=== PATIENT | female | born 1955 | race Caucasian/White ===

== ENCOUNTER 2020-08-05 09:34 | Outpatient (REF) | payer MEDICARE, SELFPAY ==
[2020-08-05 10:17] LABS: MANUAL DIFF FLAG NO
[2020-08-05 10:30] LABS: Basophils Percent Auto 0.4 % (0-2); Eosinophils Absolute Auto 0.2 X10*3/uL (0.0-0.4); Eosinophils Percent Auto 2.9 % (0-4); Hematocrit 41.4 % (37-47); Hemoglobin 13.3 g/dl (12.0-16.0); Imm Gran Abs Auto 0.03 X10*3/uL (0.00-0.03); Imm Gran Pct Auto 0.4 % (0.0-0.4); Lymphocytes Absolute Auto 2.6 X10*3/uL (1.2-4.9); Lymphocytes Percent Auto 32.8 % (20-40); Mean Corpuscular HGB Conc 32.1 g/dl (31.0-35.0); Mean Corpuscular Hemoglobin 28.9 pg (27.0-33.0); Mean Corpuscular Volume 89.8 fL (80-98); Mean Platelet Volume 9.9 fL (9.4-12.3); Monocytes Absolute Auto 0.5 X10*3/uL (0.1-1.2); Monocytes Percent Auto 6.8 % (2-11); Neutrophils Absolute Auto 4.5 X10*3/uL (2.0-8.3); Neutrophils Percent Auto 56.7 % (45-73); Platelet Count 221 X10*3/uL (160-400); Red Blood Count 4.61 X10*6/uL (4.20-5.50); Red Cell Distribution Width 13.9 % (11.0-16.0)
[2020-08-05 10:55] LABS: Alanine Aminotransferase 17 U/L (0-31); Albumin Level 4.2 g/dL (3.5-5.0); Alkaline Phosphatase 69 U/L (39-117); Anion Gap 11 (12-20); Aspartate Amino Transferase 14 U/L (5-31); Bilirubin Total 0.5 mg/dL (0.0-1.0); Blood Urea Nitrogen 15 mg/dL (9-16); Calcium 8.4 mg/dL (8.4-10.2); Carbon Dioxide 28 mmol/L (22-29); Chloride 106 mmol/L (96-108); Cholesterol 167 mg/dL; Estimated Glomerular Filt Rate > 60; Glucose Fasting 115 mg/dL (60-99); HDL Cholesterol 37 mg/dL; LDL Cholesterol Calculated 99 mg/dl; Potassium 4.4 mmol/l (3.3-5.1); Sodium 141 mmol/L (135-145); Total Protein 6.8 g/dL (6.5-8.0); Triglycerides 156 mg/dL
[2020-08-05 11:10] LABS: Creatinine Urine 53.31 mg/dL; Microalbum/Creatinine Ratio Ur 88.1 ug/mg cr
[2020-08-05 11:12] LABS: Estimated Average Glucose 137 mg/dL; Hemoglobin A1c % 6.4 %
== END 2020-08-05 09:35 | disposition home or self-care (01) ==
LOC: HO.10HDL 09:34
PROVIDERS: Visit Provider Internal Medicine
DX: E11.9 Type 2 diabetes mellitus without complications (principal); I10 Essential (primary) hypertension; G47.33 Obstructive sleep apnea (adult) (pediatric); E78.00 Pure hypercholesterolemia, unspecified
CPT/HCPCS: 36415; 80053; 80061; 82043; 83036; 85025

== ENCOUNTER 2020-12-13 08:41 | Outpatient (REF) | payer MEDICARE, BC, OTHER, SELFPAY ==
[2020-12-13 10:12] LABS: MANUAL DIFF FLAG NO
[2020-12-13 10:21] LABS: Basophils Percent Auto 0.3 % (0-2); Eosinophils Absolute Auto 0.3 X10*3/uL (0.0-0.4); Eosinophils Percent Auto 3.3 % (0-4); Hematocrit 45.2 % (37-47); Hemoglobin 14.3 g/dl (12.0-16.0); Imm Gran Abs Auto 0.08 X10*3/uL (0.00-0.03); Imm Gran Pct Auto 0.9 % (0.0-0.4); Lymphocytes Absolute Auto 2.3 X10*3/uL (1.2-4.9); Lymphocytes Percent Auto 26.5 % (20-40); Mean Corpuscular HGB Conc 31.6 g/dl (31.0-35.0); Mean Corpuscular Hemoglobin 28.3 pg (27.0-33.0); Mean Corpuscular Volume 89.3 fL (80-98); Mean Platelet Volume 10.3 fL (9.4-12.3); Monocytes Absolute Auto 0.7 X10*3/uL (0.1-1.2); Monocytes Percent Auto 7.9 % (2-11); Neutrophils Absolute Auto 5.2 X10*3/uL (2.0-8.3); Neutrophils Percent Auto 61.1 % (45-73); Platelet Count 237 X10*3/uL (160-400); Red Blood Count 5.06 X10*6/uL (4.20-5.50); White Blood Count 8.6 X10*3/uL (4.8-10.8)
[2020-12-13 10:34] LABS: Estimated Average Glucose 134 mg/dL; Hemoglobin A1c % 6.3 %
[2020-12-13 10:51] LABS: Alanine Aminotransferase 19 U/L (0-31); Albumin Level 4.3 g/dL (3.5-5.0); Alkaline Phosphatase 74 U/L (39-117); Anion Gap 12 (12-20); Aspartate Amino Transferase 16 U/L (5-31); Bilirubin Total 0.6 mg/dL (0.0-1.0); Blood Urea Nitrogen 18 mg/dL (9-16); Carbon Dioxide 28 mmol/L (22-29); Chloride 105 mmol/L (96-108); Estimated Glomerular Filt Rate > 60; Glucose Fasting 139 mg/dL (60-99); Potassium 4.1 mmol/L (3.3-5.1); Sodium 141 mmol/L (135-145); Total Protein 7.1 g/dL (6.5-8.0)
[2020-12-13 11:23] LABS: Creatinine Urine 82.76 mg/dL; Microalbum/Creatinine Ratio Ur 19.3 ug/mg cr
[2020-12-13 11:51] LABS: Phosphorus 3.6 mg/dL (2.7-4.5)
[2020-12-13 12:32] LABS: Renal w Reflex Lab Use Only Order verified
== END 2020-12-13 08:42 | disposition home or self-care (01) ==
LOC: HO.10HDL 08:41
PROVIDERS: Absent Provider Internal Medicine Nephrology; Visit Provider Internal Medicine
DX: E11.9 Type 2 diabetes mellitus without complications (principal); I10 Essential (primary) hypertension; E78.00 Pure hypercholesterolemia, unspecified; G47.33 Obstructive sleep apnea (adult) (pediatric)
CPT/HCPCS: 36415; 80051; 80053; 82043; 82310; 82565; 83036; 84100; 84520; 85025

== ENCOUNTER 2021-04-19 15:37 | Outpatient (REF) | payer MEDICARE, BC, OTHER, SELFPAY ==
[2021-04-19 16:39] LABS: Influenza A PCR NEGATIVE (Negative); Influenza B PCR NEGATIVE (Negative); Resp Syncy Virus RNA Qual PCR NEGATIVE (Negative); SARS COV2 PCR INHOUSE NEGATIVE (Negative)
== END 2021-04-19 15:38 | disposition home or self-care (01) ==
LOC: HO.LNP 15:37
PROVIDERS: Visit Provider Internal Medicine
DX: Z20.822 Contact with and (suspected) exposure to COVID-19 (principal); J02.9 Acute pharyngitis, unspecified; R51.9 Headache, unspecified
CPT/HCPCS: 0241U

== ENCOUNTER 2021-10-09 10:51 | Inpatient (IN) | payer MEDICARE, BC, OTHER, SELFPAY ==
--- NOTE | ~2021-10-09 | CT_ITS ---
EXAMINATION: CT ANGIOGRAM OF THE CHEST WITH AND WITHOUT CONTRAST (CT PULMONARY ANGIOGRAM FOR PE) CLINICAL INFORMATION: Reason for Exam + COVID worsening sob oxygen at 65% COMPARISON: Portable chest radiograph 10/09/2021. TECHNIQUE: Prior to contrast administration, noncontrast localization images were obtained. Subsequently, multidetector volumetric imaging was performed from the thoracic inlet to below the diaphragms following the administration of 65 mL Omnipaque 350 intravenous contrast. Sagittal, coronal, and MIP oblique sagittal reformatted images were obtained on the CT workstation, uploaded to PACS, and reviewed. This CT examination was performed using dose optimization techniques as appropriate, variously including the following: *Automated exposure control *Adjustment of mA and/or kV according to patient size (this includes techniques or standardized protocols for targeted exams where dose is matched to indication/reason for exam; i.e. extremities or head) *Use of iterative reconstruction technique Total exam dose-length product 587 mGy-cm FINDINGS: QUALITY OF STUDY/CONTRAST BOLUS: Satisfactory. PULMONARY ARTERIES: No central or segmental pulmonary emboli. There are some beam hardening streak artifact from high attenuation inflow of contrast in the SVC. THORACIC AORTA: No aneurysm or dissection. LUNG: There are scattered bilateral patchy geographic predominantly peripheral infiltrates upper and lower zones with some lesser involvement along the bronchovascular bundles. Findings are similar to recent chest radiograph earlier today. PLEURA: No pleural effusion or pneumothorax. MEDIASTINUM: Normal heart size. No pericardial effusion. No bulky hilar or mediastinal lymphadenopathy. No evidence of septal bowing or right heart strain. No pneumomediastinum. CHEST WALL/AXILLA: No axillary or internal mammary lymphadenopathy. OSSEOUS STRUCTURES: No acute or suspicious osseous abnormality. UPPER ABDOMEN: Unremarkable. No reflux of contrast into the hepatic veins to suggest elevated right heart pressures. CT/CT angio chest PE protocol IMPRESSION: 1. No pulmonary embolism or thoracic aortic dissection. 2. Diffuse scattered airspace opacities consistent with history COVID. No pneumothorax or effusion. VTE: negative
--- NOTE | ~2021-10-09 | XR_ITS ---
EXAMINATION: XR CHEST CLINICAL INFORMATION: SOB COMPARISON: None TECHNIQUE: Frontal view of the chest was obtained. FINDINGS: The lungs are well-expanded with patchy opacity seen scattered throughout both lungs likely infiltrates. There is no suspicion for pleural effusion or pneumothorax. The heart size is borderline enlarged. Pulmonary vascularity is normal. XR/XR chest 1V IMPRESSION: Diffuse bilateral patchy opacities throughout lungs suggestive of infiltrates.
[2021-10-09 11:05] VITALS: BP 163/84; PULSE 70; RESP 28; TEMP 36.6; O2SAT 65; BMI 48.8
--- NOTE | 2021-10-09 11:43 | ECG_ITS ---
Test Reason : sob Blood Pressure : / mmHG Vent. Rate : 071 BPM Atrial Rate : 071 BPM P-R Int : 232 ms QRS Dur : 100 ms QT Int : 452 ms P-R-T Axes : 013 090 -14 degrees QTc Int : 491 ms Sinus rhythm with sinus arrhythmia with 1st degree A-V block Rightward axis T wave abnormality, consider anterior ischemia Prolonged QT Abnormal ECG When compared with ECG of 24-OCT-2004 09:45, T wave inversion now evident in Inferior leads T wave inversion now evident in Anterior leads QT has lengthened Referred By: Cristal Potts Electronically Signed By:ANASTASIYA JENSEN
--- NOTE | 2021-10-09 11:45 | ED.SOB ---
HPI - SOB/Dyspnea General Chief Complaint: Upper Respiratory Symptoms Stated Complaint: jail COVID Time Seen by Provider: 10/09/21 11:06 Source: patient Mode of arrival: ambulatory Limitations: no limitations History of Present Illness HPI Narrative: 66-year-old female with a past medical history of diabetes, hypertension, hyperlipidemia and asthma who is unvaccinated to COVID-19 who tested positive for COVID-19 on 09/25/2021 presenting to the ED with complaints of generalized weakness, poor appetite, loss of taste and smell, shortness of breath and dyspnea on exertion since 09/25/2021 which is worsening. She reports her has similar symptoms. She denies any measured fevers, dizziness, headaches, neck pain/stiffness, trouble swallowing, sore throat, cough, hemoptysis, nausea/vomiting/diarrhea, abdominal pain, back pain, lower extremity edema or calf tenderness, focal weakness, rashes or any other symptoms complaints or concerns at this time. MD elicited complaint: shortness of breath and pain with inspiration Pertinent past history: asthma, diabetes and other (Diagnosed with COVID-19 on 09/25/2021 unvaccinated) Onset (ago): week(s) (2) Context: recent illness (See above) Timing: constant and progressively worsening Severity: severe Exacerbating factors: lying flat, exertion, movement, inspiration, talking and deep breaths Relieving factors: rest and upright position Known history of: asthma, diabetes and other (Diagnosed with COVID on 10/26/2020) Associated symptoms: pain with inspiration and orthopnea Treatment prior to arrival: none Related Data Home oxygen amount: none Home Medications Medication Instructions Recorded Confirmed atenolol 25 mg tablet 3 tab PO BEDTIME 10/09/21 10/09/21 brimonidine 0.15 % eye drops 1 drp OPHTHALMIC (EYE) BEDTIME 10/09/21 10/09/21 bupropion HCl 100 mg tablet,12 hr 1 tab PO DAILY 10/09/21 10/09/21 sustained-release cholecalciferol (vitamin D3) 25 25 mcg PO BEDTIME 10/09/21 10/09/21 mcg (1,000 unit) tablet clonazepam 0.5 mg tablet 1 tab PO DAILY PRN 10/09/21 10/09/21 clonidine HCl 0.1 mg tablet 1 tab PO BID 10/09/21 10/09/21 lisinopril 40 mg tablet 1 tab PO BEDTIME 10/09/21 10/09/21 multivitamin 1 tab PO BEDTIME 10/09/21 10/09/21 paroxetine HCl 40 mg tablet 1 tab PO BEDTIME 10/09/21 10/09/21 simvastatin 20 mg tablet 1 tab PO BEDTIME 10/09/21 10/09/21 spironolactone 25 mg tablet 1 tab PO DAILY 10/09/21 10/09/21 Allergies Allergy/AdvReac Type Severity Reaction Status Date / Time nifedipine [NIFEDIPINE] Allergy Unknown UNKNOWN- Unverified 06/16/20 15:01 DOES NOT REMEMBER Pt states no known allergy to Allergy Unknown Uncoded 01/24/18 00:00 Review of Systems Review of Systems: Constitutional : Positive fatigue/malaise, No Weight loss, No Fever, No Chills, No Night Sweats ENT/Mouth : Positive loss of taste and smell, No Hearing loss, No Ear Pain, No Nasal Congestion, No Sinus Pain, No Hoarseness, No sore throat, No Rhinorrhea, No Swallowing Difficulty Eyes: No Eye Pain, No Swelling, No Redness, No Foreign Body, No Discharge, No Vision Changes Cardiovascular : Positive shortness of breath/dyspnea on exertion/orthopnea, No Chest Pain, No Edema, No Palpitations Respiratory : Positive dyspnea, No Cough, No Sputum, No Wheezing, No Smoke Exposure Gastrointestinal : No Nausea, No Vomiting, No Diarrhea, No Constipation, No abdominal Pain, No Hematochezia, No Melena Genitourinary : no irregular bleeding, No Dysuria, No Urinary Frequency, No Hematuria, No Urinary Incontinence, No Urgency, No Flank Pain, No Urinary Flow Changes, No Hesitancy Musculoskeletal : No joint pain, positive Myalgias, No Joint Swelling Skin : No Skin Lesions, No rash Neuro : Positive general Weakness, no focal weakness, No Numbness, No Paresthesias, No Loss of Consciousness, No Dizziness, No Headache Psych : No Anxiety/Panic, No Depression, No SI/HI/AH/VH, No Social Issues, Heme/Lymph: No Bruising, No Bleeding,No Lymphadenopathy Endocrine : No Polyuria, No Polydipsia, No Temperature Intolerance Yes all other systems are reviewed and are negative [facility] Past Medical History Attestation statement: The following information was validated with the patient. Medical History (Updated 10/09/21 @ 15:47 by Marcial Norman MD) HTN (hypertension) Prediabetes Family History Family History Mother Bladder cancer Social History Social History Alcohol intake: never Patient Tobacco Use Status: Never used Tobacco Use of substances other than those prescribed or required for medical reasons: No Advance Directives: No Advance Directives Information Provided: No Physical Exam Vital Signs: Vital Signs: Last Vital Signs Temp 98 F 10/09/21 11:05 Pulse 57 10/09/21 15:54 Resp 20 10/09/21 15:54 BP 163/73 H 10/09/21 15:54 Pulse Ox 98 10/09/21 15:54 BMI result Body Mass Index 48.8 vital signs have been reviewed as normal and appeared to be correct. Blood pressure hypertensive 163/84. Heart rate normal. Respiration rate tachypneic at 28 Temperature normal. Oxygen saturation hypoxic at 65% on room air Appearance: Alert. Oriented X3. In acute respiratory distress Head: Normal external exam. Normocephalic. Atraumatic. Eyes: PERRLA. EOMI. Conjunctiva and sclera normal. Eyelids normal. ENT: EAC normal. TM's Normal. Pharynx normal. Uvula midline. Moist mucous membranes. No trismus noted. No drooling noted. No muffled voice noted. Tolerating secretions well. Neck: Normal inspection. Neck supple. FROM. No adenopathy. Thyroid Normal. No meningeal signs. No neck mass noted. CVS: Normal heart rate and rhythm. Heart sound normal. Pulses normal throughout. No murmurs/rales/gallops. Respiratory: Patient in acute respiratory distress with decreased breath sounds throughout with pain on inspiration otherwise no wheezes/rales/rhonchi noted. Chest is nontender. No accessory muscle usage noted. Abdomen: Soft and nontender. Bowel sounds normal in all 4 quadrants. No distention noted. No organomegaly noted. No visible injury noted. Back: Full range of motion noted. No rashes/lesion/induration/fluctuance or signs of infection noted. Skin: Skin warm and dry. Normal skin color. Normal skin turgor. No rashes/lesions/lacerations noted. Extremities: No lower extremity edema. No calf tenderness is noted. Extremities exhibit normal range of motion. Extremities nontender. Neuro: Oriented X 3. No motor deficit. No sensory deficit. Reflexes normal. Normal steady gait. No focal neuro deficits noted. Vascular: + radial pulses/+ 2 distal pedal pulses/+2 dorsalis pedis b/l. Normal cap refill. No cyanosis noted to upper extremity nails and lower extremity toes nails. Course Course Course Narrative: 11:45am - 66-year-old female with a past medical history of DM, HTN, HLD and asthma who is unvaccinated to COVID-19 who tested positive for COVID-19 on 09/25/2021 presenting to the ED with complaints of generalized weakness, poor appetite, loss of taste and smell, shortness of breath and dyspnea on exertion since 09/25/2021 which is worsening. Plan: Patient was immediately placed on humidified oxygen at 12 L and now is satting at 99%. Otherwise will obtain labs, chest x-ray, EKG, CT of chest for PE, blood cultures, lactic acid, ABG. Provide a L of IV fluids, 6 mg of IV Decadron and 2 g of magnesium then re-evaluate. Reevaluation(s) Reevaluation #1: - labs reviewed patient with an elevated white blood cell count at 11,000. PT INR 17.0/1.5. D-dimer 474. Random glucose 126. Ferritin 83. Total bilirubin/AST/ALT at 1.4/40 1/59. LDH 404. Troponin 24.6 will be repeated in 3 hours. CRP 13.45. BNP 164. Otherwise all other labs are within normal limits. Patient is COVID positive. - chest x-ray revealed diffuse bilateral patchy opacities throughout lung suggestive of infiltrates. - therefore patient will need a repeat troponin at 15:00. I also ordered a CTA to evaluate for possible PE although will admit to Dr. Norman for COVID pneumonia with hypoxia patient is currently on 12 L of nasal cannula humidified air and is tolerating well at 98%. Time: 13:00 Reevaluation #2: CT of chest for PE negative for PE. Patient admitted at this time. Time: 16:10 MDM - SOB/Dyspnea Medical Records Attestation: I reviewed the patient's medical records. Lab Data Attestation: I reviewed the patient's lab results. Result diagrams: 10/09/21 12:19 10/09/21 12:19 Labs: Lab Results 10/09/21 10/09/21 10/09/21 Range/Units 12:13 12:19 12:19 WBC 11.3 H (4.8-10.8) X10*3/uL RBC 4.72 (4.20-5.50) X10*6/uL Hgb 13.2 (12.0-16.0) g/dl Hct 41.3 (37.0-47.0) % MCV 87.5 (80.0-98.0) fL MCH 28.0 (27.0-33.0) pg MCHC 32.0 (31.0-35.0) g/dl RDW 13.7 (11.0-16.0) % Plt Count 343 (160-400) X10*3/uL MPV 9.6 (9.4-12.3) fL Immature Gran % (Auto) 5.0 H (0.0-0.4) % Neut % (Auto) 73.9 H (45-73) % Lymph % (Auto) 12.8 L (20-40) % [place] % (Auto) 7.6 (2-11) % Eos % (Auto) 0.4 (0-4) % Baso % (Auto) 0.3 (0-2) % Lymph # (Auto) 1.5 (1.2-4.9) X10*3/uL [place] # (Auto) 0.9 (0.1-1.2) X10*3/uL Eos # (Auto) 0.0 (0.0-0.4) X10*3/uL Baso # (Auto) 0.0 (0.0-0.2) X10*3/uL Abs Immat Gran (auto) 0.56 H (0.00-0.03) X10*3/uL Absolute Neuts (auto) 8.4 H (2.0-8.3) x10*3/uL Absolute Nucleated RBC 0.000 (0.0-0.012) X10*3/uL Nucleated RBC % (auto) 0.0 (0.0-0.2) /100WBC PT 17.0 H (9.9-13.0) SEC INR 1.5 H (0.9-1.1) D-Dimer High Sensitivty 474 NG/ML O2 Saturation 88.0 % ABG pH at Pt Temp 7.46 H (7.35-7.45) ABG pH (Temp Correct) 7.46 H (7.35-7.45) ABG pCO2 at Pt Temp 35 (32-45) mmHg ABG pCO2 (Temp Corrct 36 (32-45) mmHg ABG pO2 at Pt Temp 63 L (83-108) mmHg ABG pO2 (Temp Correct 63 L (83-108) ABG HCO3 25 (22-26) mmol/L ABG Base Excess (Actual) 2.3 mmol/L Sodium (135-145) mmol/L Potassium (3.3-5.1) mmol/L Chloride (96-108) mmol/L Carbon Dioxide (22-29) mmol/L Anion Gap (12-20) BUN (9-16) mg/dL Creatinine (0.5-1.4) mg/dL Estim Creat Clear Calc Estimated GFR Random Glucose (60-115) mg/dL Lactic Acid (0.5-2.0) mmol/L Calcium (8.4-10.2) mg/dL Magnesium (1.6-2.6) mg/dL Ferritin (10-250) ng/mL Total Bilirubin (0.0-1.0) mg/dL AST (5-31) U/L ALT (0-31) U/L Alkaline Phosphatase (39-117) U/L Lactate Dehydrogenase (122-220) U/L Troponin I High Sens (<3.5-17.0) ng/L C-Reactive Protein (< or = 0.50) mg/dL B-Natriuretic Peptide (<100) pg/mL Total Protein (6.5-8.0) g/dL Albumin (3.5-5.0) g/dL Lipase (8-78) U/L Procalcitonin ng/mL COVID-19 ([facility]) (Negative) COVID-19 Clin Com 10/09/21 10/09/21 10/09/21 Range/Units 12:19 12:19 12:19 WBC (4.8-10.8) X10*3/uL RBC (4.20-5.50) X10*6/uL Hgb (12.0-16.0) g/dl Hct (37.0-47.0) % MCV (80.0-98.0) fL MCH (27.0-33.0) pg MCHC (31.0-35.0) g/dl RDW (11.0-16.0) % Plt Count (160-400) X10*3/uL MPV (9.4-12.3) fL Immature Gran % (Auto) (0.0-0.4) % Neut % (Auto) (45-73) % Lymph % (Auto) (20-40) % [place] % (Auto) (2-11) % Eos % (Auto) (0-4) % Baso % (Auto) (0-2) % Lymph # (Auto) (1.2-4.9) X10*3/uL [place] # (Auto) (0.1-1.2) X10*3/uL Eos # (Auto) (0.0-0.4) X10*3/uL Baso # (Auto) (0.0-0.2) X10*3/uL Abs Immat Gran (auto) (0.00-0.03) X10*3/uL Absolute Neuts (auto) (2.0-8.3) x10*3/uL Absolute Nucleated RBC (0.0-0.012) X10*3/uL Nucleated RBC % (auto) (0.0-0.2) /100WBC PT (9.9-13.0) SEC INR (0.9-1.1) D-Dimer High Sensitivty NG/ML O2 Saturation % ABG pH at Pt Temp (7.35-7.45) ABG pH (Temp Correct) (7.35-7.45) ABG pCO2 at Pt Temp (32-45) mmHg ABG pCO2 (Temp Corrct (32-45) mmHg ABG pO2 at Pt Temp (83-108) mmHg ABG pO2 (Temp Correct (83-108) ABG HCO3 (22-26) mmol/L ABG Base Excess (Actual) mmol/L Sodium 140 (135-145) mmol/L Potassium 4.3 (3.3-5.1) mmol/L Chloride 104 (96-108) mmol/L Carbon Dioxide 28 (22-29) mmol/L Anion Gap 12 (12-20) BUN 11 (9-16) mg/dL Creatinine 0.72 (0.5-1.4) mg/dL Estim Creat Clear Calc 85.8 Estimated GFR > 60 Random Glucose 126 H (60-115) mg/dL Lactic Acid 1.0 (0.5-2.0) mmol/L Calcium 9.1 (8.4-10.2) mg/dL Magnesium 2.1 (1.6-2.6) mg/dL Ferritin 883 H (10-250) ng/mL Total Bilirubin 1.4 H (0.0-1.0) mg/dL AST 41 H D (5-31) U/L ALT 59 H (0-31) U/L Alkaline Phosphatase 80 (39-117) U/L Lactate Dehydrogenase 404 H (122-220) U/L Troponin I High Sens 24.6 H (<3.5-17.0) ng/L C-Reactive Protein 13.45 H (< or = 0.50) mg/dL B-Natriuretic Peptide 164 H (<100) pg/mL Total Protein 7.2 (6.5-8.0) g/dL Albumin 3.8 (3.5-5.0) g/dL Lipase 67 (8-78) U/L Procalcitonin ng/mL COVID-19 ([facility]) (Negative) COVID-19 Clin Com 10/09/21 10/09/21 10/09/21 Range/Units 12:19 12:19 14:15 WBC (4.8-10.8) X10*3/uL RBC (4.20-5.50) X10*6/uL Hgb (12.0-16.0) g/dl Hct (37.0-47.0) % MCV (80.0-98.0) fL MCH (27.0-33.0) pg MCHC (31.0-35.0) g/dl RDW (11.0-16.0) % Plt Count (160-400) X10*3/uL MPV (9.4-12.3) fL Immature Gran % (Auto) (0.0-0.4) % Neut % (Auto) (45-73) % Lymph % (Auto) (20-40) % [place] % (Auto) (2-11) % Eos % (Auto) (0-4) % Baso % (Auto) (0-2) % Lymph # (Auto) (1.2-4.9) X10*3/uL [place] # (Auto) (0.1-1.2) X10*3/uL Eos # (Auto) (0.0-0.4) X10*3/uL Baso # (Auto) (0.0-0.2) X10*3/uL Abs Immat Gran (auto) (0.00-0.03) X10*3/uL Absolute Neuts (auto) (2.0-8.3) x10*3/uL Absolute Nucleated RBC (0.0-0.012) X10*3/uL Nucleated RBC % (auto) (0.0-0.2) /100WBC PT (9.9-13.0) SEC INR (0.9-1.1) D-Dimer High Sensitivty NG/ML O2 Saturation % ABG pH at Pt Temp (7.35-7.45) ABG pH (Temp Correct) (7.35-7.45) ABG pCO2 at Pt Temp (32-45) mmHg ABG pCO2 (Temp Corrct (32-45) mmHg ABG pO2 at Pt Temp (83-108) mmHg ABG pO2 (Temp Correct (83-108) ABG HCO3 (22-26) mmol/L ABG Base Excess (Actual) mmol/L Sodium (135-145) mmol/L Potassium (3.3-5.1) mmol/L Chloride (96-108) mmol/L Carbon Dioxide (22-29) mmol/L Anion Gap (12-20) BUN (9-16) mg/dL Creatinine (0.5-1.4) mg/dL Estim Creat Clear Calc Estimated GFR Random Glucose (60-115) mg/dL Lactic Acid (0.5-2.0) mmol/L Calcium 8.9 (8.4-10.2) mg/dL Magnesium (1.6-2.6) mg/dL Ferritin (10-250) ng/mL Total Bilirubin (0.0-1.0) mg/dL AST (5-31) U/L ALT (0-31) U/L Alkaline Phosphatase (39-117) U/L Lactate Dehydrogenase (122-220) U/L Troponin I High Sens (<3.5-17.0) ng/L C-Reactive Protein (< or = 0.50) mg/dL B-Natriuretic Peptide (<100) pg/mL Total Protein (6.5-8.0) g/dL Albumin (3.5-5.0) g/dL Lipase (8-78) U/L Procalcitonin 0.17 ng/mL COVID-19 ([facility]ANIS) Positive A (Negative) COVID-19 Clin Com See Note Imaging Data Chest x-ray: Attestation: I personally reviewed and interpreted this imaging study as follows: Radiologist's impression: FINDINGS: The lungs are well-expanded with patchy opacity seen scattered throughout both lungs likely infiltrates. There is no suspicion for pleural effusion or pneumothorax. The heart size is borderline enlarged. Pulmonary vascularity is normal. XR/XR chest 1V IMPRESSION: Diffuse bilateral patchy opacities throughout lungs suggestive of infiltrates. CTA of chest for PE: Attestation: I personally reviewed and interpreted this imaging study as follows: Radiologist's impression: FINDINGS: QUALITY OF STUDY/CONTRAST BOLUS: Satisfactory. PULMONARY ARTERIES: No central or segmental pulmonary emboli. There are some beam hardening streak artifact from high attenuation inflow of contrast in the SVC. THORACIC AORTA: No aneurysm or dissection. LUNG: There are scattered bilateral patchy geographic predominantly peripheral infiltrates upper and lower zones with some lesser involvement along the bronchovascular bundles. Findings are similar to recent chest radiograph earlier today. PLEURA: No pleural effusion or pneumothorax. MEDIASTINUM: Normal heart size.? No pericardial effusion.? No bulky hilar or mediastinal lymphadenopathy.? No evidence of septal bowing or right heart strain. No pneumomediastinum. CHEST WALL/AXILLA: No axillary or internal mammary lymphadenopathy. OSSEOUS STRUCTURES: No acute or suspicious osseous abnormality.? UPPER ABDOMEN: Unremarkable.? No reflux of contrast into the hepatic veins to suggest elevated right heart pressures. CT/CT angio chest PE protocol IMPRESSION: ? 1. No pulmonary embolism or thoracic aortic dissection. 2. Diffuse scattered airspace opacities consistent with history COVID. No pneumothorax or effusion. ? VTE: negative ECG Data Attestation: I personally reviewed and interpreted this ECG as follows: ECG interpretation date: 10/09/21 ECG interpretation time: 01:48 Interpretation: SINUS RHYTHM WITH SINUS ARRHYTHMIA WITH 1ST DEGREE AV BLOCK WITH A VENTRICULAR RATE OF 71 WITH LEFT RIGHTWARD AXIS WITH T-WAVE ABNORMALITIES NO ACUTE ISCHEMIC CHANGES ARE NOTED. PROLONGED QT AT 452 MILLISECONDS OTHERWISE NO ACUTE ISCHEMIC CHANGES AND SOME CHANGES WHEN COMPARED TO A PRIOR EKG 10/24/2017 ALTHOUGH NOT ISCHEMIC CHANGES AT THIS TIME Critical Care Time Critical Care Time Critical Care Time: Yes Total Critical Care Time: 60 Attestation: I personally attest to this time spent taking care of the patient Discharge Plan Discharge Clinical Impression: COVID-19, Acute hypoxemic respiratory failure due to COVID-19 Patient Disposition: Admitted As Inpatient
[2021-10-09 12:04] VITALS: O2SAT 97
[2021-10-09 12:20] LABS: ABG Base Excess 2.3 mmol/L; ABG HCO3 25 mmol/L (22-26); ABG pCO2 35 mmHg (32-45); ABG pCO2 TC 36 mmHg (32-45); ABG pH 7.46 (7.35-7.45); ABG pH TC 7.46 (7.35-7.45); ABG pO2 63 mmHg (83-108); ABG pO2 TC 63 (83-108)
[2021-10-09 12:30] LABS: MANUAL DIFF FLAG NO
[2021-10-09 12:33] LABS: Basophils Percent Auto 0.3 % (0-2); Eosinophils Percent Auto 0.4 % (0-4); Hematocrit 41.3 % (37.0-47.0); Hemoglobin 13.2 g/dl (12.0-16.0); Imm Gran Abs Auto 0.56 X10*3/uL (0.00-0.03); Lymphocytes Absolute Auto 1.5 X10*3/uL (1.2-4.9); Lymphocytes Percent Auto 12.8 % (20-40); Mean Corpuscular Volume 87.5 fL (80.0-98.0); Mean Platelet Volume 9.6 fL (9.4-12.3); Monocytes Absolute Auto 0.9 X10*3/uL (0.1-1.2); Monocytes Percent Auto 7.6 % (2-11); Neutrophils Absolute Auto 8.4 x10*3/uL (2.0-8.3); Neutrophils Percent Auto 73.9 % (45-73); Platelet Count 343 X10*3/uL (160-400); Red Blood Count 4.72 X10*6/uL (4.20-5.50); Red Cell Distribution Width 13.7 % (11.0-16.0); White Blood Count 11.3 X10*3/uL (4.8-10.8)
[2021-10-09 12:39] LABS: COVID-19 Test Positive (Negative); IDNOW Serial# 08D9AD1C
[2021-10-09 12:49] LABS: Alanine Aminotransferase 59 U/L (0-31); Albumin Level 3.8 g/dL (3.5-5.0); Alkaline Phosphatase 80 U/L (39-117); Anion Gap 12 (12-20); Aspartate Amino Transferase 41 U/L (5-31); Bilirubin Total 1.4 mg/dL (0.0-1.0); Blood Urea Nitrogen 11 mg/dL (9-16); C Reactive Protein 13.45 mg/dL (< or = 0.50); Calcium 9.1 mg/dL (8.4-10.2); Carbon Dioxide 28 mmol/L (22-29); Chloride 104 mmol/L (96-108); Creatinine Clr Calc Pharmacy 85.8; Estimated Glomerular Filt Rate > 60; Glucose Random 126 mg/dL (60-115); Lactate Dehydrogenase 404 U/L (122-220); Lipase 67 U/L (8-78); Magnesium 2.1 mg/dL (1.6-2.6); Potassium 4.3 mmol/L (3.3-5.1); Sodium 140 mmol/L (135-145); Total Protein 7.2 g/dL (6.5-8.0)
[2021-10-09 12:53] LABS: B Type Natriuretic Peptide 164 pg/mL (<100); Troponin-I High Sensitivity 24.6 ng/L (<3.5-17.0)
[2021-10-09 12:57] LABS: INTERNATIONAL NORM RATIO 1.5 (0.9-1.1)
[2021-10-09 12:59] LABS: D Dimer High Sensitivity 474 NG/ML
[2021-10-09 13:07] LABS: Procalcitonin 0.17 ng/mL
[2021-10-09 13:09] LABS: Ferritin 883 ng/mL (10-250)
--- NOTE | 2021-10-09 13:10 | PHA.MEDREC ---
Pharmacy Consult ? Medication Reconciliation Pharmacy has completed the medication reconciliation. Spoke with patient in ED. Patient takes all of her medication at night except for clonidine, bupropion and spironolactone.
[2021-10-09 13:31] LABS: ABG Refer to POC result
[2021-10-09] MEDS: 0.9 % Sodium Chloride 1,000 ML 999 ML IVCONT (13:32)
[2021-10-09] MEDS: cefTRIAXone sodium 1 GM in 0.9 % Sodium Chloride 50 ML IV (13:43)
[2021-10-09] MEDS: dexAMETHasone sod phosphate 4 MG/ML VIAL 6 MG IVPUSH (14:24)
[2021-10-09] MEDS: Magnesium Sulfate/H2O 2 GM/50 ML PIGGYBACK IV (14:29)
[2021-10-09 14:30] VITALS: BP 147/83; PULSE 69; RESP 22; O2SAT 98
[2021-10-09 14:31] LABS: Calcium 8.9 mg/dL (8.4-10.2)
[2021-10-09] MEDS: iohexoL 350 MG/ML 100 ML INFUS..BTL 65 ML IV (15:27)
--- NOTE | 2021-10-09 15:44 | PM.IMHP ---
History of Present Illness Date of Service: 10/09/21 Chief Complaint: sob 58-year-old female who tested positive for COVID-19 on 09/25/2021, unvaccinated, presented with shortness of breath. Patient states that since diagnosis she has been feeling significant weakness, poor appetite, loss of taste and smell, shortness of breath worse on exertion. Symptoms have been worsening so she contacted her primary care physician who directed her to the ED. In the ED she was noted to be 65% on room air, chest x-ray with bilateral opacities consistent with COVID, patient still testing positive for COVID. Review of Systems Review of Systems: Constitutional: Denies fever, denies Chills Eyes: denies blurry vision ENT: denies sore throat CVS: denies chest pain Respiratory: dyspnea GI: no abdominal pain : denies dysuria MSK: denies neck pain Skin: denies rash Neuro: denies specific motor weakness Psych: denies suicidal ideation Endocrine: denies heat/cold intolerance Hematologic: denies easy bleeding Allergy: denies hives [facility] Medical History (Updated 10/09/21 @ 15:47 by Marcial Norman MD) HTN (hypertension) Prediabetes Family History Mother Bladder cancer Social History Alcohol intake: never Patient Tobacco Use Status: Never used Tobacco Use of substances other than those prescribed or required for medical reasons: No Advance Directives: No Advance Directives Information Provided: No Meds Allergies Allergy/AdvReac Type Severity Reaction Status Date / Time nifedipine [NIFEDIPINE] Allergy Unknown UNKNOWN- Unverified 06/16/20 15:01 DOES NOT REMEMBER Pt states no known allergy to Allergy Unknown Uncoded 01/24/18 00:00 Active Medications: Current Medications Atenolol (Atenolol 25 Mg Tablet) 75 mg PO BEDTIME RITU; Protocol Brimonidine Tartrate (Brimonidine Tartrate 0.2% Oph 5 Ml Bottle) 1 drop EYE-BOTH BEDTIME [facility] Clonazepam (Clonazepam 0.5 Mg Tablet) 0.5 mg PO DAILY PRN PRN Reason: Anxiety Clonidine HCl (Clonidine Hcl 0.1 Mg Tablet) 0.1 mg PO BID RITU; Protocol Dexamethasone Sodium Phosphate (Dexamethasone Sod Phosphate 4 Mg/Ml Vial) 6 mg IVPUSH DAILY R[facility]U Lisinopril (Lisinopril 40 Mg Tablet) 40 mg PO BEDTIME R[facility]U; Protocol Multivitamins/Vitamin C (Multivitamin Tablet) 1 tab PO BEDTIME R[facility]U Non-Formulary Medication (Bupropion Hcl) 1 tab PO DAILY RITU Non-Formulary Medication (Simvastatin) 1 tab PO BEDTIME RITU Paroxetine HCl (Paroxetine Hcl 40 Mg Tablet) 40 mg PO BEDTIME [facility] Pharmacy Consult (Consult Rx Perform Med Rec) 1 each MISCELLANE ONCE PRN PRN Reason: Consult order Spironolactone (Spironolactone 25 Mg Tablet) 25 mg PO DAILY RITU; Protocol Vitamin D (Cholecalciferol (Vitamin D3) 25 Mcg Tablet) 25 mcg PO BEDTIME [facility] Home Medications Medication Instructions Recorded Confirmed Last Taken Type atenolol 25 mg tablet 3 tab PO BEDTIME 10/09/21 10/09/21 Unknown History brimonidine 0.15 % eye drops 1 drp OPHTHALMIC (EYE) BEDTIME 10/09/21 10/09/21 10/08/21 History bupropion HCl 100 mg tablet,12 hr 1 tab PO DAILY 10/09/21 10/09/21 10/09/21 History sustained-release cholecalciferol (vitamin D3) 25 25 mcg PO BEDTIME 10/09/21 10/09/21 10/08/21 History mcg (1,000 unit) tablet clonazepam 0.5 mg tablet 1 tab PO DAILY PRN 10/09/21 10/09/21 Unknown History clonidine HCl 0.1 mg tablet 1 tab PO BID 10/09/21 10/09/21 10/09/21 History lisinopril 40 mg tablet 1 tab PO BEDTIME 10/09/21 10/09/21 10/08/21 History multivitamin 1 tab PO BEDTIME 10/09/21 10/09/21 10/08/21 History paroxetine HCl 40 mg tablet 1 tab PO BEDTIME 10/09/21 10/09/21 10/08/21 History simvastatin 20 mg tablet 1 tab PO BEDTIME 10/09/21 10/09/21 10/08/21 History spironolactone 25 mg tablet 1 tab PO DAILY 10/09/21 10/09/21 10/09/21 History Physical Exam Vital Signs and Narrative: Vital Signs: Last Vital Signs Temp 98 F 01/10/22 11:05 Pulse 69 10/09/21 14:30 Resp 22 H 10/09/21 14:30 BP 147/83 H 10/09/21 14:30 Pulse Ox 98 10/09/21 14:30 BMI result Body Mass Index 48.8 General: Visibly dyspneic HEENT: atraumatic Neck: normal to visual inspection CVS: S1, S2, RRR Resp: rhonchi bilateral, accessory muscles used Chest: non tender GI: soft, non tender, non distended : no CVA tenderness Skin: no rashes Extremities: no edema Neuro: Oriented X3, grossly intact Psych: cooperative Results Labs CBC and Chem 7: 10/09/21 12:19 10/09/21 12:19 Labs: Laboratory Results - last 24 hr 10/09/21 10/09/21 10/09/21 12:13 12:19 12:19 MCV 87.5 MCH 28.0 MCHC 32.0 RDW 13.7 Plt Count 343 MPV 9.6 Immature Gran % (Auto) 5.0 H Neut % (Auto) 73.9 H Lymph % (Auto) 12.8 L [place] % (Auto) 7.6 Eos % (Auto) 0.4 Baso % (Auto) 0.3 Lymph # (Auto) 1.5 [place] # (Auto) 0.9 Eos # (Auto) 0.0 Baso # (Auto) 0.0 Abs Immat Gran (auto) 0.56 H Absolute Neuts (auto) 8.4 H Absolute Nucleated RBC 0.000 Nucleated RBC % (auto) 0.0 PT 17.0 H INR 1.5 H D-Dimer High Sensitivty 474 O2 Saturation 88.0 ABG pH at Pt Temp 7.46 H ABG pH (Temp Correct) 7.46 H ABG pCO2 at Pt Temp 35 ABG pCO2 (Temp Corrct 36 ABG pO2 at Pt Temp 63 L ABG pO2 (Temp Correct 63 L ABG HCO3 25 ABG Base Excess (Actual) 2.3 Anion Gap Estim Creat Clear Calc Estimated GFR Random Glucose Lactic Acid Calcium Magnesium Ferritin Total Bilirubin AST ALT Alkaline Phosphatase Lactate Dehydrogenase Troponin I High Sens C-Reactive Protein B-Natriuretic Peptide Total Protein Albumin Lipase Procalcitonin COVID-19 (DANIS) COVID-19 Clin Com 10/09/21 10/09/21 10/09/21 12:19 12:19 12:19 MCV MCH MCHC RDW Plt Count MPV Immature Gran % (Auto) Neut % (Auto) Lymph % (Auto) [place] % (Auto) Eos % (Auto) Baso % (Auto) Lymph # (Auto) [place] # (Auto) Eos # (Auto) Baso # (Auto) Abs Immat Gran (auto) Absolute Neuts (auto) Absolute Nucleated RBC Nucleated RBC % (auto) PT INR D-Dimer High Sensitivty O2 Saturation ABG pH at Pt Temp ABG pH (Temp Correct) ABG pCO2 at Pt Temp ABG pCO2 (Temp Corrct ABG pO2 at Pt Temp ABG pO2 (Temp Correct ABG HCO3 ABG Base Excess (Actual) Anion Gap 12 Estim Creat Clear Calc 85.8 Estimated GFR > 60 Random Glucose 126 H Lactic Acid 1.0 Calcium 9.1 Magnesium 2.1 Ferritin 883 H Total Bilirubin 1.4 H AST 41 H D ALT 59 H Alkaline Phosphatase 80 Lactate Dehydrogenase 404 H Troponin I High Sens 24.6 H C-Reactive Protein 13.45 H B-Natriuretic Peptide 164 H Total Protein 7.2 Albumin 3.8 Lipase 67 Procalcitonin COVID-19 (DANIS) COVID-19 Clin Com 10/09/21 10/09/21 10/09/21 12:19 12:19 14:15 MCV MCH MCHC RDW Plt Count MPV Immature Gran % (Auto) Neut % (Auto) Lymph % (Auto) [place] % (Auto) Eos % (Auto) Baso % (Auto) Lymph # (Auto) [place] # (Auto) Eos # (Auto) Baso # (Auto) Abs Immat Gran (auto) Absolute Neuts (auto) Absolute Nucleated RBC Nucleated RBC % (auto) PT INR D-Dimer High Sensitivty O2 Saturation ABG pH at Pt Temp ABG pH (Temp Correct) ABG pCO2 at Pt Temp ABG pCO2 (Temp Corrct ABG pO2 at Pt Temp ABG pO2 (Temp Correct ABG HCO3 ABG Base Excess (Actual) Anion Gap Estim Creat Clear Calc Estimated GFR Random Glucose Lactic Acid Calcium 8.9 Magnesium Ferritin Total Bilirubin AST ALT Alkaline Phosphatase Lactate Dehydrogenase Troponin I High Sens C-Reactive Protein B-Natriuretic Peptide Total Protein Albumin Lipase Procalcitonin 0.17 COVID-19 (DANIS) Positive A COVID-19 Clin Com See Note Imaging Radiologist's Impressions: Impressions Chest X-Ray 10/09/21 11:45 IMPRESSION: Diffuse bilateral patchy opacities throughout lungs suggestive of infiltrates. Assessment and Plan (1) COVID-19: Status: Acute 66F with known COVID, presented with shortness of breath acute hypoxic respiratory failure secondary to COVID pneumonia not a candidate for remdesivir dexamethasone 6 mg daily wean O2 as tolerated for goal of 90% high risk due to prediabetes, obesity, hypertension, and unvaccinated hypertension lisinopril, clonidine, Aldactone, atenolol mood disorder continue Paxil, bupropion DVT prophylaxis with Lovenox Quality Stroke Does the patient have a stroke diagnosis?: No VTE Prior VTE?: No VTE Risk Level:: Medical - moderate - high VTE Device Contraindication: Treatment Not Indicated VTE Drug Contraindication: N/A - Med Ordered
[2021-10-09 15:54] VITALS: BP 163/73; PULSE 57; RESP 20; O2SAT 98
[2021-10-09 16:12] LABS: Troponin-I High Sensitivity 19.9 ng/L (<3.5-17.0)
[2021-10-09] MEDS: Lidocaine HCl 2 % MPF 5 ML VIAL SUBCUT (17:20)
[2021-10-09] MEDS: Enoxaparin Sodium 40 MG/0.4 ML SYRINGE SUBCUT (18:10)
--- NOTE | 2021-10-09 19:00 | PC.NURSE ---
assumed care of pt. pt resting in stretcher on monitor, pt refusing to put on gown and wants to remain in clothes. Pt on monitor, VS obtained. pt denies any complaints at this time.
[2021-10-09 21:00] VITALS: BP 159/87; PULSE 70; RESP 21; O2SAT 90
--- NOTE | 2021-10-09 21:00 | PC.NURSE ---
pt medicated as per emar. pt is trying to take meds from her purse and educated not to take meds on her own. pt denies any complaints at this time. pt awake, respirations easy, n/l. pt refusing to take off clothes. pt finally put on gown. VS obtained.
[2021-10-09] MEDS: cloNIDine HCL 0.1 MG TABLET PO (21:04)
[2021-10-09] MEDS: Cholecalciferol (Vitamin D3) 25 MCG TABLET PO (21:04)
[2021-10-09] MEDS: Multivitamin TABLET 1 TAB PO (21:05)
[2021-10-09] MEDS: lisinopriL 40 MG TABLET PO (21:05)
[2021-10-09] MEDS: Atorvastatin Calcium 10 MG TABLET PO (21:05)
[2021-10-09] MEDS: atenoloL 25 MG TABLET 75 MG PO (21:06)
[2021-10-10] VITALS (9 sets, daily range): BP systolic 124–160; BP diastolic 53–95; PULSE 54–88; RESP 18–21; TEMP 36.3–36.7; O2SAT 91–95
--- NOTE | 2021-10-10 | ECG_ITS ---
Test Reason : afib Blood Pressure : / mmHG Vent. Rate : 066 BPM Atrial Rate : 000 BPM P-R Int : 000 ms QRS Dur : 088 ms QT Int : 476 ms P-R-T Axes : 000 095 -32 degrees QTc Int : 499 ms Likely sinus with PACs; less likely atrial fibrilation Rightward axis ST & T wave abnormality, consider inferior ischemia ST & T wave abnormality, consider anterolateral ischemia Prolonged QT Abnormal ECG When compared with ECG of 09-OCT-2021 11:48, No significant changes seen Referred By: Marcial Norman Electronically Signed By:ANASTASIYA JENSEN
--- NOTE | 2021-10-10 02:52 | PC.NURSE ---
pt awake and requesting to use restroom. pt on commode at bedside w/o difficulty. IV pulled out by pt to LAC, Pt remains on monitor, pt denies complaints. Respirations easy, n/l. skin w/d. pt awaiting for room assignment. will continue to monitor pt.
--- NOTE | 2021-10-10 02:59 | PC.NURSE ---
pt returns to stretcher w/o difficulty.
[2021-10-10 07:42] LABS: Anion Gap 14 (12-20); Blood Urea Nitrogen 11 mg/dL (9-16); Calcium 9.4 mg/dL (8.4-10.2); Carbon Dioxide 25 mmol/L (22-29); Chloride 108 mmol/L (96-108); Creatinine Clr Calc Pharmacy 92.1; Estimated Glomerular Filt Rate > 60; Glucose Fasting 145 mg/dL (60-99); Potassium 4.4 mmol/L (3.3-5.1); Sodium 143 mmol/L (135-145)
[2021-10-10 07:45] LABS: Hematocrit 43.1 % (37.0-47.0); Hemoglobin 13.6 g/dl (12.0-16.0); Mean Corpuscular HGB Conc 31.6 g/dl (31.0-35.0); Mean Corpuscular Hemoglobin 27.9 pg (27.0-33.0); Mean Corpuscular Volume 88.3 fL (80.0-98.0); Mean Platelet Volume 10.1 fL (9.4-12.3); Platelet Count 408 X10*3/uL (160-400); Red Blood Count 4.88 X10*6/uL (4.20-5.50); Red Cell Distribution Width 13.6 % (11.0-16.0); White Blood Count 12.7 X10*3/uL (4.8-10.8)
[2021-10-10] MEDS: cloNIDine HCL 0.1 MG TABLET PO ×2 (08:37→21:06)
[2021-10-10] MEDS: dexAMETHasone sod phosphate 4 MG/ML VIAL 6 MG IVPUSH (08:37)
[2021-10-10] MEDS: 0.9 % Sodium Chloride Flush 3 ML SYRINGE IVFLUSH ×3 (08:38→21:07)
[2021-10-10] MEDS: Spironolactone 25 MG TABLET PO (08:38)
--- NOTE | 2021-10-10 08:43 | PC.NURSE ---
pt alert and oriented, skin pwd, respirations even and unlabored, ls slightly diminished at bases, pt is on a woods nasal cannual at 11l and sating 92%, denies pain pt used the commode with no assistance and urinated
[2021-10-10 09:14] LABS: Appearance Urine CLEAR; Color Urine YELLOW; Glucose Urine UA NEG (NEG); Leukocyte Esterase Urine NEG (NEG); Nitrite Urine NEG (NEG); Specific Gravity - Urine 1.025 (1.005-1.025); UACC Culture Trigger NO; Urine Blood 3+ (NEG); Urine Ketones NEG (NEG); Urine Protein 1+ MG/DL (NEG-TRACE)
[2021-10-10 09:47] LABS: Mucus Urine 1+ /LPF; Squamous Epithelial Cell Urine 1+ /LPF; WBC Urine 0-2 /HPF (0-4)
--- NOTE | 2021-10-10 09:59 | MHC.CM.PN ---
CM attempted to reach Patient by phone (COVID +)at contact # listed ([phone]), but reached Patient's /Ariel instead. CM addressed IMM with Ariel and the original will be mailed certified letter to him and a copy has been placed on the chart. Patient lives in a house with her and is functionally independent. Home/no services is the goal for dc and CM has initiated and will follow for dc planning. PCP is DR. Radu Welch.
--- NOTE | 2021-10-10 10:22 | PC.NURSE ---
report given to imc rn
--- NOTE | 2021-10-10 11:59 | PC.NURSE ---
Appears that patient is in Afib on monitor. Dr. Norman made aware. stat ECG ordered.
--- NOTE | 2021-10-10 12:04 | P.CDIC_ITS ---
CDI Concurrent Query Documentation Clarification: PHYSICIAN'S DOCUMENTATION REQUEST Date of Query: 10/10/21 1205 Patient Name: Josefina Magallon Admit Date: 10/09/21 Dear Doctor, A review of the medical record indicates additional documentation may be needed. Please review below and update the documentation accordingly. Risk Factors/Clinical Indicators/Treatments Body mass index: 48.8 If possible, please provide an associated diagnosis related to the abnormal BMI, such as: For a BMI >= 40: * Overweight * Obesity * Due to excess calories * Drug induced * Due to other cause * Severe or Morbid Obesity Or: * BMI is not significant * Other (please specify) * Unable to determine Use of terms such as suspected, likely, concern for, or probable (associated with a specific diagnosis that is being evaluated, monitored, or treated as if it exists) are acceptable and can be coded in the inpatient setting, when documented at the time of discharge. Thank you, Tonya Pascual [facility], CDIS Extension: [phone] Please use your independent medical judgment in providing your response. THIS QUERY IS PART OF THE PERMANENT MEDICAL RECORD Provider Response: Morbid Obesity
--- NOTE | 2021-10-10 12:04 | MHC.CDI.CONC ---
CDI Concurrent Query Documentation Clarification: PHYSICIAN'S DOCUMENTATION REQUEST Date of Query: 10/10/21 1205 Patient Name: Josefina Magallon Admit Date: 10/09/21 Dear Doctor, A review of the medical record indicates additional documentation may be needed. Please review below and update the documentation accordingly. Risk Factors/Clinical Indicators/Treatments Body mass index: 48.8 If possible, please provide an associated diagnosis related to the abnormal BMI, such as: For a BMI >= 40: Overweight Obesity Due to excess calories Drug induced Due to other cause Severe or Morbid Obesity Or: BMI is not significant Other (please specify) Unable to determine Use of terms such as suspected, likely, concern for, or probable (associated with a specific diagnosis that is being evaluated, monitored, or treated as if it exists) are acceptable and can be coded in the inpatient setting, when documented at the time of discharge. Thank you, Tonya Pascual [facility], CDIS Extension: [phone] Please use your independent medical judgment in providing your response. THIS QUERY IS PART OF THE PERMANENT MEDICAL RECORD Provider Response: Morbid Obesity
--- NOTE | 2021-10-10 12:48 | HO.PM.IMPN ---
Subjective Subjective Date of Service: 10/10/21 Interval History: cc: sob interval histoyr: a bit better today, family reported she seemed confused yesterday, but was more coherent on the phone today Cardiovascular Cardiovascular: Reports no additional cardiovascular complaints Respiratory Respiratory: Reports no additional respiratory complaints Physical Exam Vital Signs: Vital Signs: Last Vital Signs Temp 97.3 F 10/10/21 11:34 Pulse 67 10/10/21 11:34 Resp 20 10/10/21 11:34 BP 137/81 10/10/21 11:34 Pulse Ox 91 L 10/10/21 11:34 Oxygen Flow Rate 11 10/10/21 08:34 BMI result Body Mass Index 48.8 General: AO X 3, no acute distress Resp: Crackles bilateral, no accessory muscles used CVS: S1,S2,RRR GI: soft, non tender, non distended Neuro: motor grossly intact, alert Psych: appropriate affect, appropriate insight Objective Data Active Medications Acetaminophen (Acetaminophen 325 Mg Tablet) 650 mg PO Q6H PRN PRN Reason: Pain, Mild (Pain Scale 1-3) Atenolol (Atenolol 25 Mg Tablet) 75 mg PO BEDTIME ON LICENSE OF [facility]; Protocol Last Admin: 10/09/21 21:06 Dose: 75 mg Documented by: NANCY Atorvastatin Calcium (Atorvastatin Calcium 10 Mg Tablet) 10 mg PO BEDTIME ON LICENSE OF [facility] Last Admin: 10/09/21 21:05 Dose: 10 mg Documented by: NANCY Brimonidine Tartrate (Brimonidine Tartrate 0.2% Oph 5 Ml Bottle) 1 drop EYE-BOTH BEDTIME ON LICENSE OF [facility] Last Admin: 10/09/21 21:43 Dose: Not Given Documented by: NANCY Non-Admin Reason: See Note Clonazepam (Clonazepam 0.5 Mg Tablet) 0.5 mg PO DAILY PRN PRN Reason: Anxiety Clonidine HCl (Clonidine Hcl 0.1 Mg Tablet) 0.1 mg PO BID ON LICENSE OF [facility]; Protocol Last Admin: 10/10/21 08:37 Dose: 0.1 mg Documented by: NICHOLAS Dexamethasone Sodium Phosphate (Dexamethasone Sod Phosphate 4 Mg/Ml Vial) 6 mg IVPUSH DAILY ON LICENSE OF [facility] Last Admin: 10/10/21 08:37 Dose: 6 mg Documented by: NICHOLAS Enoxaparin Sodium (Enoxaparin Sodium 40 Mg/0.4 Ml Syringe) 40 mg SUBCUT Q24H RITU Last Admin: 10/09/21 18:10 Dose: 40 mg Documented by: KIKI Lisinopril (Lisinopril 40 Mg Tablet) 40 mg PO BEDTIME [facility]; Protocol Last Admin: 10/09/21 21:05 Dose: 40 mg Documented by: NANCY Multivitamins/Vitamin C (Multivitamin Tablet) 1 tab PO BEDTIME R[facility]U Last Admin: 10/09/21 21:05 Dose: 1 tab Documented by: NANCY Non-Formulary Medication (Bupropion Hcl) 1 tab PO DAILY RITU Paroxetine HCl (Paroxetine Hcl 40 Mg Tablet) 40 mg PO BEDTIME RITU Last Admin: 10/09/21 22:58 Dose: Not Given Documented by: NANCY Non-Admin Reason: Med Not Available Pharmacy Consult (Consult Rx Perform Med Rec) 1 each MISCELLANE ONCE PRN PRN Reason: Consult order Sodium Chloride (0.9 % Sodium Chloride Flush 3 Ml Syringe) 3 ml IVFLUSH QSHIFT ON LICENSE OF [facility] Last Admin: 10/10/21 08:38 Dose: 3 ml Documented by: NICHOLAS Spironolactone (Spironolactone 25 Mg Tablet) 25 mg PO DAILY R[facility]U; Protocol Last Admin: 10/10/21 08:38 Dose: 25 mg Documented by: NICHOLAS Vitamin D (Cholecalciferol (Vitamin D3) 25 Mcg Tablet) 25 mcg PO BEDTIME RITU Last Admin: 10/09/21 21:04 Dose: 25 mcg Documented by: NANCY Labs CBC & Chem 7: 10/10/21 07:13 10/10/21 07:13 Labs: Laboratory Results - last 24 hr 10/09/21 10/09/21 10/09/21 12:19 12:19 12:19 MCV MCH MCHC RDW Plt Count MPV Absolute Nucleated RBC Nucleated RBC % (auto) PT 17.0 H INR 1.5 H D-Dimer High Sensitivty 474 Anion Gap 12 Estim Creat Clear Calc 85.8 Estimated GFR > 60 Random Glucose 126 H Fasting Glucose Calcium 9.1 Magnesium 2.1 Ferritin 883 H Total Bilirubin 1.4 H AST 41 H D ALT 59 H Alkaline Phosphatase 80 Lactate Dehydrogenase 404 H Troponin I High Sens 24.6 H C-Reactive Protein 13.45 H B-Natriuretic Peptide 164 H Total Protein 7.2 Albumin 3.8 Lipase 67 Procalcitonin Urine Color Urine Appearance Urine pH Ur Specific [place] Urine Protein Urine Glucose (UA) Urine Ketones Urine Blood Urine Nitrite Ur Leukocyte Esterase Urine RBC Urine WBC Ur Squamous Epith Cells Urine Bacteria Urine Mucus 10/09/21 10/09/21 10/09/21 12:19 14:15 15:46 MCV MCH MCHC RDW Plt Count MPV Absolute Nucleated RBC Nucleated RBC % (auto) PT INR D-Dimer High Sensitivty Anion Gap Estim Creat Clear Calc Estimated GFR Random Glucose Fasting Glucose Calcium 8.9 Magnesium Ferritin Total Bilirubin AST ALT Alkaline Phosphatase Lactate Dehydrogenase Troponin I High Sens 19.9 H C-Reactive Protein B-Natriuretic Peptide Total Protein Albumin Lipase Procalcitonin 0.17 Urine Color Urine Appearance Urine pH Ur Specific [place] Urine Protein Urine Glucose (UA) Urine Ketones Urine Blood Urine Nitrite Ur Leukocyte Esterase Urine RBC Urine WBC Ur Squamous Epith Cells Urine Bacteria Urine Mucus 10/10/21 10/10/21 10/10/21 07:13 07:13 08:44 MCV 88.3 MCH 27.9 MCHC 31.6 RDW 13.6 Plt Count 408 H MPV 10.1 Absolute Nucleated RBC 0.000 Nucleated RBC % (auto) 0.0 PT INR D-Dimer High Sensitivty Anion Gap 14 Estim Creat Clear Calc 92.1 Estimated GFR > 60 Random Glucose Fasting Glucose 145 H Calcium 9.4 Magnesium Ferritin Total Bilirubin AST ALT Alkaline Phosphatase Lactate Dehydrogenase Troponin I High Sens C-Reactive Protein B-Natriuretic Peptide Total Protein Albumin Lipase Procalcitonin Urine Color YELLOW Urine Appearance CLEAR Urine pH 6.0 Ur Specific [place] 1.025 Urine Protein 1+ H Urine Glucose (UA) NEG Urine Ketones NEG Urine Blood 3+ H Urine Nitrite NEG Ur Leukocyte Esterase NEG Urine RBC 5-9 H Urine WBC 0-2 Ur Squamous Epith Cells 1+ Urine Bacteria NONE Urine Mucus 1+ Assessment and Plan (1) COVID-19: Status: Acute Assessment and Plan: 66F? with known COVID, presented with shortness of breath ?metabolic encephalopathy and acute hypoxic respiratory failure secondary to COVID pneumonia ?not a candidate for remdesivir ?dexamethasone 6 mg day 2 encephalopathy improved ?wean O2 as tolerated for goal of? 90%, now on 11L ?high risk due to prediabetes, morbid obesity, hypertension, and unvaccinated ? hypertension ?lisinopril, clonidine,? Aldactone, atenolol ?mood disorder ?continue Paxil, bupropion ?DVT prophylaxis with Lovenox Quality Stroke Does the patient have a stroke diagnosis?: No VTE Prior VTE?: No VTE Risk Level:: Medical - moderate - high VTE Device Contraindication: Treatment Not Indicated VTE Drug Contraindication: N/A - Med Ordered
--- NOTE | 2021-10-10 13:00 | PC.NURSE ---
Dr Norman aware of AFIB rhythm. Rate in 80s
[2021-10-10] MEDS: atenoloL 25 MG TABLET 75 MG PO (21:06)
[2021-10-10] MEDS: Cholecalciferol (Vitamin D3) 25 MCG TABLET PO (21:06)
[2021-10-10] MEDS: Atorvastatin Calcium 10 MG TABLET PO (21:06)
[2021-10-10] MEDS: lisinopriL 40 MG TABLET PO (21:06)
[2021-10-10] MEDS: Multivitamin TABLET 1 TAB PO (21:06)
[2021-10-10] MEDS: Apixaban 5 MG TABLET PO (21:06)
[2021-10-10] MEDS: PARoxetine HCL 40 MG TABLET PO (21:06)
[2021-10-11 03:06] VITALS: BP 132/74; PULSE 55; RESP 20; TEMP 36; O2SAT 96
--- NOTE | 2021-10-11 05:35 | PC.NURSE ---
Pt prescribed 75mg PO Atenolol = 3 tabs for bedtime. When giving this med to pt, she insisted that she only takes two 25mg tabs at home equaling 50mg for bedtime. This RN explained the dose ordered, but patient adamant about how many tabs she takes at home. Pt was only given two tabs of 25mg Atenolol and told to speak with MD in the daytime about her dosing. She stated that she will have her bring her correct order. She states that she has already discussed this with her primary Dr Fontaine and does not want to go against his orders. This RN did note that the patients heart rate was dropping into the low 30's overnight. She was also started on eliquis and did not understand what atrial fibrillation was and did not seem to recall the EKG that was taken earlier in the day. This RN educated the patient but she remains concerned and likely needing further education. Will continue to monitor and reassess.
[2021-10-11 06:33] LABS: Hematocrit 45.9 % (37.0-47.0); Hemoglobin 14.5 g/dl (12.0-16.0); Mean Corpuscular HGB Conc 31.6 g/dl (31.0-35.0); Mean Corpuscular Hemoglobin 27.8 pg (27.0-33.0); Mean Corpuscular Volume 87.9 fL (80.0-98.0); Mean Platelet Volume 10.2 fL (9.4-12.3); Platelet Count 452 X10*3/uL (160-400); Red Blood Count 5.22 X10*6/uL (4.20-5.50); Red Cell Distribution Width 13.6 % (11.0-16.0); White Blood Count 15.1 X10*3/uL (4.8-10.8)
[2021-10-11 06:42] LABS: Anion Gap 13 (12-20); Blood Urea Nitrogen 16 mg/dL (9-16); Calcium 9.2 mg/dL (8.4-10.2); Carbon Dioxide 27 mmol/L (22-29); Chloride 109 mmol/L (96-108); Creatinine Clr Calc Pharmacy 90.8; Estimated Glomerular Filt Rate > 60; Glucose Fasting 130 mg/dL (60-99); Potassium 4.8 mmol/L (3.3-5.1); Sodium 144 mmol/L (135-145)
[2021-10-11 06:54] LABS: Lactate Dehydrogenase 381 U/L (122-220)
[2021-10-11 07:35] VITALS: BP 184/96; PULSE 72; RESP 19; TEMP 35.7; O2SAT 92
[2021-10-11] MEDS: Apixaban 5 MG TABLET PO ×2 (08:37→21:07)
[2021-10-11] MEDS: cloNIDine HCL 0.1 MG TABLET PO ×2 (08:37→22:02)
[2021-10-11] MEDS: Spironolactone 25 MG TABLET PO (08:37)
[2021-10-11] MEDS: dexAMETHasone sod phosphate 4 MG/ML VIAL 6 MG IVPUSH (09:04)
[2021-10-11 11:07] VITALS: BP 149/86; PULSE 63; RESP 20; TEMP 35.8; O2SAT 93
--- NOTE | 2021-10-11 11:31 | MHC.CM.PN ---
Per ROUNDS discussion, Patient is not yet medically cleared for dc (IV Decadron, 11L O2);home is the goal for dc and CM will follow for possible need to adjust the dc plan.
--- NOTE | 2021-10-11 13:08 | HO.PM.IMPN ---
Subjective Subjective Date of Service: 10/11/21 Interval History: the patient was seen and evaluated this morning Laying in bed, feels mild improvement but still requiring 11 L of oxygen Denies any fever, chills or chest pain No reported other overnight events. Systemic review: No fever, chills or weakness No chest pain, palpitation Reporting mild shortness of breath and episodes of coughing No abdominal pain, nausea or vomiting No urinary symptoms No any rash or wounds Physical Exam Vital Signs: Vital Signs: Last Vital Signs Temp 96.4 F L 10/11/21 11:07 Pulse 63 10/11/21 11:07 Resp 20 10/11/21 11:07 BP 149/86 H 10/11/21 11:07 Pulse Ox 93 10/11/21 11:07 Oxygen Flow Rate 11 10/10/21 08:34 BMI result Body Mass Index 48.8 Const: Other: Constitutional : Alert, oriented, not in distress Neck : Normal inspection, Supple Cardiovascular : No elevated JVP, no lower extremity edema Respiratory : Chest wall moving bilaterally, not in distress, on 11 L nasal cannula Gastrointestinal: soft, lax, Normal bowel sounds, Non tender Skin : Warm, Dry Neurological : Alert & oriented x3, No focal deficit Objective Data Active Medications Acetaminophen (Acetaminophen 325 Mg Tablet) 650 mg PO Q6H PRN PRN Reason: Pain, Mild (Pain Scale 1-3) Apixaban (Apixaban 5 Mg Tablet) 5 mg PO BID [facility] Last Admin: 10/11/21 08:37 Dose: 5 mg Documented by: RYLAN Atenolol (Atenolol 25 Mg Tablet) 75 mg PO BEDTIME [facility]; Protocol Last Admin: 10/10/21 21:06 Dose: 75 mg Documented by: JAREN Atorvastatin Calcium (Atorvastatin Calcium 10 Mg Tablet) 10 mg PO BEDTIME [facility] Last Admin: 10/10/21 21:06 Dose: 10 mg Documented by: JAREN Brimonidine Tartrate (Brimonidine Tartrate 0.2% Oph 5 Ml Bottle) 1 drop EYE-BOTH BEDTIME [facility] Last Admin: 10/10/21 23:23 Dose: Not Given Documented by: JAREN Non-Admin Reason: pt refused, will take tomorrow Clonazepam (Clonazepam 0.5 Mg Tablet) 0.5 mg PO DAILY PRN PRN Reason: Anxiety Clonidine HCl (Clonidine Hcl 0.1 Mg Tablet) 0.1 mg PO BID [facility]; Protocol Last Admin: 10/11/21 08:37 Dose: 0.1 mg Documented by: RYLAN Dexamethasone Sodium Phosphate (Dexamethasone Sod Phosphate 4 Mg/Ml Vial) 6 mg IVPUSH DAILY [facility] Last Admin: 10/11/21 09:04 Dose: 6 mg Documented by: GILMAR Lisinopril (Lisinopril 40 Mg Tablet) 40 mg PO BEDTIME [facility]; Protocol Last Admin: 10/10/21 21:06 Dose: 40 mg Documented by: JAREN Multivitamins/Vitamin C (Multivitamin Tablet) 1 tab PO BEDTIME [facility] Last Admin: 10/10/21 21:06 Dose: 1 tab Documented by: JAREN Non-Formulary Medication (Bupropion Hcl) 1 tab PO DAILY [facility] Paroxetine HCl (Paroxetine Hcl 40 Mg Tablet) 40 mg PO BEDTIME [facility] Last Admin: 10/10/21 21:06 Dose: 40 mg Documented by: JAREN Pharmacy Consult (Consult Rx Perform Med Rec) 1 each MISCELLANE ONCE PRN PRN Reason: Consult order Sodium Chloride (0.9 % Sodium Chloride Flush 3 Ml Syringe) 3 ml IVFLUSH QSHIFT [facility] Last Admin: 10/11/21 08:40 Dose: Not Given Documented by: RYLAN Non-Admin Reason: No Access Spironolactone (Spironolactone 25 Mg Tablet) 25 mg PO DAILY [facility]; Protocol Last Admin: 10/11/21 08:37 Dose: 25 mg Documented by: RYLAN Vitamin D (Cholecalciferol (Vitamin D3) 25 Mcg Tablet) 25 mcg PO BEDTIME [facility] Last Admin: 10/10/21 21:06 Dose: 25 mcg Documented by: JAREN Labs CBC & Chem 7: 10/11/21 05:58 10/11/21 05:58 Labs: Laboratory Results - last 24 hr 10/11/21 10/11/21 05:58 05:58 MCV 87.9 MCH 27.8 MCHC 31.6 RDW 13.6 Plt Count 452 H MPV 10.2 Absolute Nucleated RBC 0.000 Nucleated RBC % (auto) 0.0 Anion Gap 13 Estim Creat Clear Calc 90.8 Estimated GFR > 60 Fasting Glucose 130 H Calcium 9.2 Lactate Dehydrogenase 381 H C-Reactive Protein 5.10 H Microbiology Microbiology Results: Microbiology 10/09/21 12:19 Blood Culture - Preliminary Blood - Venous No growth after 24 hours. 10/09/21 12:19 Blood Culture - Preliminary Blood - Venous No growth after 24 hours. Assessment and Plan (1) Acute hypoxemic respiratory failure due to COVID-19: Status: Acute (2) COVID-19: Status: Acute Assessment and Plan: 66F? with known COVID, presented with shortness of breath ?metabolic encephalopathy and acute hypoxic respiratory failure secondary to COVID pneumonia ?not a candidate for remdesivir ?dexamethasone 6 mg day 3 encephalopathy improved ?wean O2 as tolerated for goal of? 90%, now on 11L ?high risk due to prediabetes, morbid obesity, hypertension, and unvaccinated ? hypertension ?lisinopril, clonidine,? Aldactone, atenolol ?mood disorder ?continue Paxil, bupropion ?DVT prophylaxis with Lovenox Quality Stroke Does the patient have a stroke diagnosis?: No VTE Prior VTE?: No VTE Risk Level:: Medical - moderate - high VTE Device Contraindication: Treatment Not Indicated VTE Drug Contraindication: N/A - Med Ordered
[2021-10-11] MEDS: 0.9 % Sodium Chloride Flush 3 ML SYRINGE IVFLUSH ×2 (15:00→21:08)
[2021-10-11 15:53] VITALS: BP 165/120; PULSE 75; RESP 18; TEMP 36.4; O2SAT 92
[2021-10-11 20:00] VITALS: BP 192/109; PULSE 78; RESP 18; TEMP 36.4; O2SAT 96
[2021-10-11] MEDS: PARoxetine HCL 40 MG TABLET PO (21:06)
[2021-10-11] MEDS: Multivitamin TABLET 1 TAB PO (21:06)
[2021-10-11] MEDS: Cholecalciferol (Vitamin D3) 25 MCG TABLET PO (21:07)
[2021-10-11] MEDS: lisinopriL 40 MG TABLET PO (21:07)
[2021-10-11] MEDS: atenoloL 25 MG TABLET 75 MG PO (21:07)
[2021-10-11] MEDS: Atorvastatin Calcium 10 MG TABLET PO (21:07)
[2021-10-11] MEDS: Brimonidine Tartrate 0.2% Oph 5 ML BOTTLE 1 DROP EYE-BOTH (21:18)
[2021-10-11 23:29] VITALS: BP 167/90; PULSE 69; RESP 19; TEMP 36; O2SAT 97
[2021-10-12] VITALS (8 sets, daily range): BP systolic 122–167; BP diastolic 64–94; PULSE 63–86; RESP 18–20; TEMP 36–37; O2SAT 94–98
[2021-10-12 07:15] LABS: Hematocrit 45.5 % (37.0-47.0); Hemoglobin 14.5 g/dl (12.0-16.0); Mean Corpuscular HGB Conc 31.9 g/dl (31.0-35.0); Mean Corpuscular Hemoglobin 28.3 pg (27.0-33.0); Mean Corpuscular Volume 88.7 fL (80.0-98.0); Platelet Count 490 X10*3/uL (160-400); Red Blood Count 5.13 X10*6/uL (4.20-5.50); Red Cell Distribution Width 13.7 % (11.0-16.0)
[2021-10-12 07:32] LABS: Anion Gap 11 (12-20); Blood Urea Nitrogen 20 mg/dL (9-16); Calcium 9.3 mg/dL (8.4-10.2); Carbon Dioxide 29 mmol/L (22-29); Chloride 109 mmol/L (96-108); Creatinine Clr Calc Pharmacy 85.8; Estimated Glomerular Filt Rate > 60; Glucose Random 126 mg/dL (60-115); Potassium 4.5 mmol/L (3.3-5.1); Sodium 144 mmol/L (135-145)
[2021-10-12] MEDS: Apixaban 5 MG TABLET PO ×2 (08:46→20:53)
[2021-10-12] MEDS: 0.9 % Sodium Chloride Flush 3 ML SYRINGE IVFLUSH ×2 (08:46→20:54)
[2021-10-12] MEDS: cloNIDine HCL 0.1 MG TABLET PO ×2 (08:46→20:54)
[2021-10-12] MEDS: dexAMETHasone sod phosphate 4 MG/ML VIAL 6 MG IVPUSH (08:46)
[2021-10-12] MEDS: Spironolactone 25 MG TABLET PO (08:46)
--- NOTE | 2021-10-12 12:20 | HO.PM.IMPN ---
Subjective Subjective Date of Service: 10/12/21 Interval History: the patient was seen and evaluated this morning Laying in bed, feels mild improvement Decreased O2 supplement to 9 No reported other overnight events. Systemic review: No fever, chills or weakness No chest pain, palpitation Reporting mild shortness of breath and episodes of coughing No abdominal pain, nausea or vomiting No urinary symptoms No any rash or wounds Physical Exam Vital Signs: Vital Signs: Last Vital Signs Temp 97.0 F 10/12/21 11:04 Pulse 63 10/12/21 11:04 Resp 20 10/12/21 11:04 BP 151/84 H 10/12/21 11:04 Pulse Ox 98 10/12/21 11:04 Oxygen Flow Rate 11 10/10/21 08:34 BMI result Body Mass Index 48.8 Const: Other: Constitutional : Alert, oriented, not in distress Neck : Normal inspection, Supple Cardiovascular : No elevated JVP, no lower extremity edema Respiratory : Chest wall moving bilaterally, not in distress, on 9 L nasal cannula Gastrointestinal: soft, lax, Normal bowel sounds, Non tender Skin : Warm, Dry Neurological : Alert & oriented x3, No focal deficit Objective Data Active Medications Acetaminophen (Acetaminophen 325 Mg Tablet) 650 mg PO Q6H PRN PRN Reason: Pain, Mild (Pain Scale 1-3) Apixaban (Apixaban 5 Mg Tablet) 5 mg PO BID [facility] Last Admin: 10/12/21 08:46 Dose: 5 mg Documented by: AMARA Atenolol (Atenolol 25 Mg Tablet) 75 mg PO BEDTIME [facility]; Protocol Last Admin: 10/11/21 21:07 Dose: 50 mg Documented by: DARIEN Comments: pt only wants 50mg Atorvastatin Calcium (Atorvastatin Calcium 10 Mg Tablet) 10 mg PO BEDTIME [facility] Last Admin: 10/11/21 21:07 Dose: 10 mg Documented by: DARIEN Brimonidine Tartrate (Brimonidine Tartrate 0.2% Oph 5 Ml Bottle) 1 drop EYE-BOTH BEDTIME [facility] Last Admin: 10/11/21 21:18 Dose: 1 drop Documented by: DARIEN Clonazepam (Clonazepam 0.5 Mg Tablet) 0.5 mg PO DAILY PRN PRN Reason: Anxiety Clonidine HCl (Clonidine Hcl 0.1 Mg Tablet) 0.1 mg PO BID [facility]; Protocol Last Admin: 10/12/21 08:46 Dose: 0.1 mg Documented by: AMARA Dexamethasone Sodium Phosphate (Dexamethasone Sod Phosphate 4 Mg/Ml Vial) 6 mg IVPUSH DAILY [facility] Last Admin: 10/12/21 08:46 Dose: 6 mg Documented by: AMARA Lisinopril (Lisinopril 40 Mg Tablet) 40 mg PO BEDTIME [facility]; Protocol Last Admin: 10/11/21 21:07 Dose: 40 mg Documented by: DARIEN Multivitamins/Vitamin C (Multivitamin Tablet) 1 tab PO BEDTIME [facility] Last Admin: 10/11/21 21:06 Dose: 1 tab Documented by: DARIEN Non-Formulary Medication (Bupropion Hcl) 1 tab PO DAILY [facility] Paroxetine HCl (Paroxetine Hcl 40 Mg Tablet) 40 mg PO BEDTIME [facility] Last Admin: 10/11/21 21:06 Dose: 40 mg Documented by: DARIEN Pharmacy Consult (Consult Rx Perform Med Rec) 1 each MISCELLANE ONCE PRN PRN Reason: Consult order Sodium Chloride (0.9 % Sodium Chloride Flush 3 Ml Syringe) 3 ml IVFLUSH QSHIFT [facility] Last Admin: 10/12/21 08:46 Dose: 3 ml Documented by: AMARA Spironolactone (Spironolactone 25 Mg Tablet) 25 mg PO DAILY [facility]; Protocol Last Admin: 10/12/21 08:46 Dose: 25 mg Documented by: AMARA Vitamin D (Cholecalciferol (Vitamin D3) 25 Mcg Tablet) 25 mcg PO BEDTIME [facility] Last Admin: 10/11/21 21:07 Dose: 25 mcg Documented by: DARIEN Labs CBC & Chem 7: 10/12/21 06:55 10/12/21 06:55 Labs: Laboratory Results - last 24 hr 10/12/21 10/12/21 06:55 06:55 MCV 88.7 MCH 28.3 MCHC 31.9 RDW 13.7 Plt Count 490 H MPV 10.0 Absolute Nucleated RBC 0.000 Nucleated RBC % (auto) 0.0 Anion Gap 11 L Estim Creat Clear Calc 85.8 Estimated GFR > 60 Random Glucose 126 H Calcium 9.3 Microbiology Microbiology Results: Microbiology 10/09/21 12:19 Blood Culture - Preliminary Blood - Venous No growth after 48 hours. 10/09/21 12:19 Blood Culture - Preliminary Blood - Venous No growth after 48 hours. Assessment and Plan (1) COVID-19: Status: Acute (2) Acute hypoxemic respiratory failure due to COVID-19: Status: Acute Assessment and Plan: 66F? with known COVID, presented with shortness of breath ?metabolic encephalopathy and acute hypoxic respiratory failure secondary to COVID pneumonia ?not a candidate for remdesivir ?dexamethasone 6 mg day 4 encephalopathy improved ?wean O2 as tolerated for goal of? 90%, now on 9L ?high risk due to prediabetes, morbid obesity, hypertension, and unvaccinated ? hypertension ?lisinopril, clonidine,? Aldactone, atenolol ?mood disorder ?continue Paxil, bupropion ?DVT prophylaxis with Lovenox Quality Stroke Does the patient have a stroke diagnosis?: No VTE Prior VTE?: No VTE Risk Level:: Medical - moderate - high VTE Device Contraindication: Treatment Not Indicated VTE Drug Contraindication: N/A - Med Ordered
[2021-10-12] MEDS: PARoxetine HCL 40 MG TABLET PO (20:53)
[2021-10-12] MEDS: lisinopriL 40 MG TABLET PO (20:53)
[2021-10-12] MEDS: Cholecalciferol (Vitamin D3) 25 MCG TABLET PO (20:53)
[2021-10-12] MEDS: Multivitamin TABLET 1 TAB PO (20:53)
[2021-10-12] MEDS: Atorvastatin Calcium 10 MG TABLET PO (20:53)
[2021-10-12] MEDS: atenoloL 25 MG TABLET 75 MG PO (20:53)
[2021-10-12] MEDS: Brimonidine Tartrate 0.2% Oph 5 ML BOTTLE 1 DROP EYE-BOTH (21:01)
[2021-10-13] VITALS (7 sets, daily range): BP systolic 152–190; BP diastolic 75–97; PULSE 66–88; RESP 18–20; TEMP 36.1–36.7; O2SAT 86–98
[2021-10-13] MEDS: Spironolactone 25 MG TABLET PO (08:16)
[2021-10-13] MEDS: cloNIDine HCL 0.1 MG TABLET PO ×2 (08:16→23:12)
[2021-10-13] MEDS: Apixaban 5 MG TABLET PO ×2 (08:16→23:13)
[2021-10-13] MEDS: dexAMETHasone sod phosphate 4 MG/ML VIAL 6 MG IVPUSH (08:16)
[2021-10-13] MEDS: 0.9 % Sodium Chloride Flush 3 ML SYRINGE IVFLUSH ×3 (08:17→23:13)
[2021-10-13] MEDS: hydrALAZINE HCl 25 MG TABLET PO (10:22)
[2021-10-13] MEDS: clonazePAM 0.5 MG TABLET PO (10:23)
--- NOTE | 2021-10-13 13:23 | PM.DS ---
DS: Providers Provider Date of Service: 10/14/21 Date of admission: 10/09/21 15:42 Primary care physician: Radu Welch MD DS: Diagnosis Discharge Diagnosis (1) COVID-19: Status: Acute (2) Acute hypoxemic respiratory failure due to COVID-19: Status: Acute (3) New onset atrial fibrillation: Status: Acute DS: Summary Hospital Course Hospital Course: Admission note HPI ?58-year-old female who tested positive for COVID-19 on 09/25/2021, unvaccinated, presented with shortness of breath.? Patient states that since diagnosis she has been feeling significant weakness, poor appetite, loss of taste and smell, shortness of breath worse on exertion.? Symptoms have been worsening so she contacted her primary care physician who directed her to the ED.? In the ED she was noted to be 65% on room air, chest x-ray with bilateral opacities consistent with COVID, patient still testing positive for COVID. Hospital Course The patient was admitted for hypoxia as a result of COVID-19 infection. Not a candidate for remdesivir at time of presentation. Treated with IV steroids and oxygen supplement with fair response over the course of hospital stay as she was weaned down and had home O2 evaluation with requirement of 2 L with ambulation. Noted to new onset atrial fibrillation with controlled rate. Evaluated by Cardiology who recommended Eliquis and to follow-up as outpatient for an echo. Suggested changing edema on all to carvedilol for better control of blood pressure. Hydralazine was added as well. To be discharged to finish total of 10 days of dexamethasone. Home oxygen showed be delivered by the end of the day and will need 2 L at time of discharge Blood pressure was noted to be elevated, will change Atenolol to Carvedilol Hydralazine added for blood pressure control as well. Time Spent with Patient Time attestation: Total time spent providing and/or coordinating discharge services: Discharge coordination time: Greater than 30 minutes Quality: Stroke Does the patient have a stroke diagnosis?: No Physical Exam Vital Signs: Vital Signs: Last Vital Signs Temp 97.8 F 10/13/21 11:42 Pulse 66 10/13/21 11:42 Resp 18 10/13/21 11:42 BP 170/82 H 10/13/21 11:42 Pulse Ox 95 10/13/21 11:42 Oxygen Flow Rate 11 10/10/21 08:34 BMI result Body Mass Index 48.8 Const: Other: Constitutional : Alert, oriented, not in distress Neck : Normal inspection, Supple Cardiovascular : No elevated JVP, no lower extremity edema Respiratory : Chest wall moving bilaterally, not in distress, on oxygen supplement nasal cannula Gastrointestinal: soft, lax, Normal bowel sounds, Non tender Skin : Warm, Dry Neurological : Alert & oriented x3, No focal deficit DS: Data Data Completed and Pending Labs on day of discharge: Preliminary micro results at discharge 10/09/21 12:19 Blood Culture - Preliminary Blood - Venous No growth after 48 hours. 10/09/21 12:19 Blood Culture - Preliminary Blood - Venous No growth after 48 hours. Discharge Plan Discharge Patient Disposition: Home, Self-Care Discharge Diagnosis: COVID-19 infection Referrals: Radu Welch MD [Primary Care Provider] - 1 Week Discharge Medications: New dexamethasone 6 mg tablet 6 mg PO DAILY Qty: 5 RF: 0 Eliquis 5 mg Tablet 5 mg PO BID Qty: 60 RF: 0 carvedilol 12.5 mg Tablet 12.5 mg PO BID Qty: 60 RF: 0 hydralazine 25 mg Tablet 25 mg PO TID Qty: 90 RF: 0 Continued clonidine HCl 0.1 mg tablet 1 tab PO BID RF: 0 clonazepam 0.5 mg tablet 1 tab PO DAILY PRN (Reason: Anxiety) RF: 0 spironolactone 25 mg tablet 1 tab PO DAILY RF: 0 bupropion HCl 100 mg tablet sustained-release 12 hr 1 tab PO DAILY RF: 0 simvastatin 20 mg tablet 1 tab PO BEDTIME RF: 0 paroxetine HCl 40 mg tablet 1 tab PO BEDTIME RF: 0 lisinopril 40 mg tablet 1 tab PO BEDTIME RF: 0 brimonidine 0.15 % drops 1 drp ophthalmic (eye) BEDTIME RF: 0 multivitamin Tablet 1 tab PO BEDTIME RF: 0 cholecalciferol (vitamin D3) 25 mcg (1,000 unit) Tablet 25 mcg PO BEDTIME RF: 0 Discontinued atenolol 25 mg tablet 3 tab PO BEDTIME RF: 0 Discharge Orders: Discharge Order (Routine); Ordered 10/14/21 Ordered By: Mildred Desouza Diet: advance to usual diet Activity on Discharge: As tolerated Stand Alone Forms: Patient Portal Discharge page Other Ambulatory Orders: [place] echo transthoracic complete (Routine) Timeframe: 2 Weeks Facility: [facility] - Location: Cardiology Ordered By: Mildred Desouza Care Plan Goals: Read below Health Concerns: Read below Plan of Treatment: Read below Assessment: You were admitted to the hospital for evaluation of increased shortness of breath and weakness from COVID-19 infection. Treated with IV steroids and oxygen supplement with good response over the course of hospital stay. You were evaluated for home O2. Continue dexamethasone for 5 more days. You were noted to have a new onset heart rhythm of atrial fibrillation. Started on Eliquis 5 mg twice daily , to follow up with dr Morel as outpatient and do an ECHO (ordered). Blood pressure was noted to be elevated, will change Atenolol to Carvedilol Hydralazine added for blood pressure control as well. check your readings at home and report to your PCP.
--- NOTE | 2021-10-13 14:27 | MHC.CM.PN ---
IMM 10/13/21 Female 66 DX Covid+ Patient is discharged today. She qualifies for Home O2. RT provided Home oxygen eval.She needs 2L via [place]. Jose is the provider. RT has arranged. No home services ordered or needed. Patients is providing transportation home.
--- NOTE | 2021-10-13 16:20 | PC.NURSE ---
Pt alert and oriented x3. Pt is on 2L O2 via [place]. Home O2 eval done and pt will be discharging home on 2L O2. Education provided and packet given to pt.
--- NOTE | 2021-10-13 17:04 | P.PNIM_ITS ---
Subjective Subjective Date of Service: 10/13/21 Interval History: the patient was seen and evaluated this morning Laying in bed, feels mild improvement, O2 req decreased to 3L Noticed to have new onset atrial fibrillation, rate controlled No reported other overnight events. Systemic review: No fever, chills or weakness No chest pain, palpitation Reporting no SOB at rest No abdominal pain, nausea or vomiting No urinary symptoms No any rash or wounds Physical Exam Vital Signs: Vital Signs: Last Vital Signs Temp 98.0 F 10/13/21 15:43 Pulse 75 10/13/21 15:43 Resp 20 10/13/21 15:43 BP 152/84 H 10/13/21 15:43 Pulse Ox 97 10/13/21 15:43 Oxygen Flow Rate 11 10/10/21 08:34 BMI result Body Mass Index 48.8 Const: Other: Constitutional : Alert, oriented, not in distress Neck : Normal inspection, Supple Cardiovascular : No elevated JVP, no lower extremity edema Respiratory : Chest wall moving bilaterally, not in distress, on oxygen supplement nasal cannula Gastrointestinal: soft, lax, Normal bowel sounds, Non tender Skin : Warm, Dry Neurological : Alert & oriented x3, No focal deficit Objective Data Active Medications Acetaminophen (Acetaminophen 325 Mg Tablet) 650 mg PO Q6H PRN PRN Reason: Pain, Mild (Pain Scale 1-3) Apixaban (Apixaban 5 Mg Tablet) 5 mg PO BID [facility] Last Admin: 10/13/21 08:16 Dose: 5 mg Documented by: CHAY Atenolol (Atenolol 25 Mg Tablet) 75 mg PO BEDTIME [facility]; Protocol Last Admin: 10/12/21 20:53 Dose: 75 mg Documented by: REINA Atorvastatin Calcium (Atorvastatin Calcium 10 Mg Tablet) 10 mg PO BEDTIME [facility] Last Admin: 10/12/21 20:53 Dose: 10 mg Documented by: REINA Brimonidine Tartrate (Brimonidine Tartrate 0.2% Oph 5 Ml Bottle) 1 drop EYE- BOTH BEDTIME [facility] Last Admin: 10/12/21 21:01 Dose: 1 drop Documented by: REINA Clonazepam (Clonazepam 0.5 Mg Tablet) 0.5 mg PO DAILY PRN PRN Reason: Anxiety Last Admin: 10/13/21 10:23 Dose: 0.5 mg Documented by: CHAY Clonidine HCl (Clonidine Hcl 0.1 Mg Tablet) 0.1 mg PO BID [facility]; Protocol Last Admin: 10/13/21 08:16 Dose: 0.1 mg Documented by: CHAY Dexamethasone Sodium Phosphate (Dexamethasone Sod Phosphate 4 Mg/Ml Vial) 6 mg IVPUSH DAILY [facility] Last Admin: 10/13/21 08:16 Dose: 6 mg Documented by: CHAY Lisinopril (Lisinopril 40 Mg Tablet) 40 mg PO BEDTIME [facility]; Protocol Last Admin: 10/12/21 20:53 Dose: 40 mg Documented by: REINA Multivitamins/Vitamin C (Multivitamin Tablet) 1 tab PO BEDTIME [facility] Last Admin: 10/12/21 20:53 Dose: 1 tab Documented by: REINA Non-Formulary Medication (Bupropion Hcl) 1 tab PO DAILY [facility] Paroxetine HCl (Paroxetine Hcl 40 Mg Tablet) 40 mg PO BEDTIME [facility] Last Admin: 10/12/21 20:53 Dose: 40 mg Documented by: REINA Pharmacy Consult (Consult Rx Perform Med Rec) 1 each MISCELLANE ONCE PRN PRN Reason: Consult order Sodium Chloride (0.9 % Sodium Chloride Flush 3 Ml Syringe) 3 ml IVFLUSH QSHIFT [facility] Last Admin: 10/13/21 08:17 Dose: 3 ml Documented by: CHAY Spironolactone (Spironolactone 25 Mg Tablet) 25 mg PO DAILY [facility]; Protocol Last Admin: 10/13/21 08:16 Dose: 25 mg Documented by: CHAY Vitamin D (Cholecalciferol (Vitamin D3) 25 Mcg Tablet) 25 mcg PO BEDTIME [facility] Last Admin: 10/12/21 20:53 Dose: 25 mcg Documented by: REINA Labs CBC & Chem 7: 10/12/21 06:55 10/12/21 06:55 Assessment and Plan (1) New onset atrial fibrillation: Status: Acute (2) COVID-19: Status: Acute (3) Acute hypoxemic respiratory failure due to COVID-19: Status: Acute Assessment and Plan: 66F? with known COVID, presented with shortness of breath ?metabolic encephalopathy and acute hypoxic respiratory failure secondary to COVID pneumonia ?not a candidate for remdesivir ?dexamethasone 6 mg day 5 encephalopathy improved ?wean O2 as tolerated for goal of? 90%, now on 9L ?high risk due to prediabetes, morbid obesity, hypertension, and unvaccinated ? New onset atrial fibrillation rate controlled on Atenolol Started on Eliquis To do ECHO Get cardiology consult hypertension ?lisinopril, clonidine,? Aldactone, atenolol ?mood disorder ?continue Paxil, bupropion ?DVT prophylaxis with Lovenox Quality Stroke Does the patient have a stroke diagnosis?: No VTE Prior VTE?: No VTE Risk Level:: Medical - moderate - high VTE Device Contraindication: Treatment Not Indicated VTE Drug Contraindication: N/A - Med Ordered
[2021-10-13] MEDS: Cholecalciferol (Vitamin D3) 25 MCG TABLET PO (23:12)
[2021-10-13] MEDS: atenoloL 25 MG TABLET 75 MG PO (23:12)
[2021-10-13] MEDS: PARoxetine HCL 40 MG TABLET PO (23:12)
[2021-10-13] MEDS: Atorvastatin Calcium 10 MG TABLET PO (23:12)
[2021-10-13] MEDS: lisinopriL 40 MG TABLET PO (23:13)
[2021-10-13] MEDS: Multivitamin TABLET 1 TAB PO (23:13)
[2021-10-13] MEDS: Brimonidine Tartrate 0.2% Oph 5 ML BOTTLE 1 DROP EYE-BOTH (23:13)
[2021-10-14] VITALS: BP 122/88; PULSE 72; RESP 18; TEMP 36.6; O2SAT 96
[2021-10-14 04:00] VITALS: BP 160/78; PULSE 68; RESP 18; TEMP 36.4; O2SAT 95
[2021-10-14 07:38] VITALS: BP 188/90; PULSE 72; RESP 18; TEMP 36.6; O2SAT 95
[2021-10-14] MEDS: dexAMETHasone sod phosphate 4 MG/ML VIAL 6 MG IVPUSH (09:45)
[2021-10-14] MEDS: Apixaban 5 MG TABLET PO (09:45)
[2021-10-14] MEDS: 0.9 % Sodium Chloride Flush 3 ML SYRINGE IVFLUSH (09:45)
[2021-10-14] MEDS: cloNIDine HCL 0.1 MG TABLET PO (09:45)
[2021-10-14 11:10] VITALS: BP 162/93; PULSE 63; RESP 18; TEMP 36.6; O2SAT 97
[2021-10-14] MEDS: dexAMETHasone 6 MG TABLET PO (11:16)
[2021-10-14] MEDS: hydrALAZINE HCl 25 MG TABLET PO (11:16)
[2021-10-14] MEDS: carvediloL 12.5 MG TABLET PO (11:16)
--- NOTE | 2021-10-14 11:33 | PM.CNCAR ---
History of Present Illness History of Present Illness Date of Service: 10/14/21 Chief complaint: COVID Narrative: This is a cardiology consultation regarding atrial fibrillation. She is admitted for COVID infection. In this setting, noted to have atrial fibrillation. Patient denies any cardiac symptoms or any previous cardiac issues like coronary disease myocardial infarction. She states that she is generally doing okay. Has hypertension at baseline. Review of Systems Review of Systems: Yes all other systems are reviewed and are negative Cardiovascular: Cardiovascular: Reports as per HPI, Reports no additional cardiovascular complaints, Denies acrocyanosis, Denies cool extremities, Denies painful fingertips, Denies chest pain, Denies chest pain at rest, Denies diaphoresis, Denies syncope, Denies irregular heart rhythm, Denies claudication, Denies leg edema, Denies lightheadedness, Denies palpitations and Denies dyspnea Respiratory: Respiratory: Denies dyspnea Neurologic: Denies syncope Endocrine: Endocrine: Denies palpitations PMFSH Past Medical History Medical History (Updated 10/14/21 @ 11:37 by Rubin Morel MD) HTN (hypertension) Prediabetes Family History Family History Mother Bladder cancer Social History Social History Alcohol intake: never Patient Tobacco Use Status: Never used Tobacco service: No Current occupational status: retired Meds Allergies Allergy/AdvReac Type Severity Reaction Status Date / Time nifedipine [NIFEDIPINE] Allergy Unknown UNKNOWN- Unverified 06/16/20 15:01 DOES NOT REMEMBER Pt states no known allergy to Allergy Unknown Uncoded 01/24/18 00:00 Active Medications: Current Medications Acetaminophen (Acetaminophen 325 Mg Tablet) 650 mg PO Q6H PRN PRN Reason: Pain, Mild (Pain Scale 1-3) Apixaban (Apixaban 5 Mg Tablet) 5 mg PO BID [facility] [place] Last Admin: 10/14/21 09:45 Dose: 5 mg Documented by: Atorvastatin Calcium (Atorvastatin Calcium 10 Mg Tablet) 10 mg PO BEDTIME [facility] [place] Last Admin: 10/13/21 23:12 Dose: 10 mg Documented by: Brimonidine Tartrate (Brimonidine Tartrate 0.2% Oph 5 Ml Bottle) 1 drop EYE-BOTH BEDTIME [facility] [place] Last Admin: 10/13/21 23:13 Dose: 1 drop Documented by: Bupropion HCl (Bupropion Hcl Xl 150 Mg Tab.Er.24h) 150 mg PO DAILY [facility] [place] Carvedilol (Carvedilol 12.5 Mg Tablet) 12.5 mg PO BID [facility] [place]; Protocol Last Admin: 10/14/21 11:16 Dose: 12.5 mg Documented by: Clonazepam (Clonazepam 0.5 Mg Tablet) 0.5 mg PO DAILY PRN PRN Reason: Anxiety Last Admin: 10/13/21 10:23 Dose: 0.5 mg Documented by: Clonidine HCl (Clonidine Hcl 0.1 Mg Tablet) 0.1 mg PO BID [facility] [place]; Protocol Last Admin: 10/14/21 09:45 Dose: 0.1 mg Documented by: Hydralazine HCl (Hydralazine Hcl 25 Mg Tablet) 25 mg PO TID [facility]; Protocol Last Admin: 10/14/21 11:16 Dose: 25 mg Documented by: Lisinopril (Lisinopril 40 Mg Tablet) 40 mg PO BEDTIME [facility]; Protocol Last Admin: 10/13/21 23:13 Dose: 40 mg Documented by: Multivitamins/Vitamin C (Multivitamin Tablet) 1 tab PO BEDTIME [facility] Last Admin: 10/13/21 23:13 Dose: 1 tab Documented by: Paroxetine HCl (Paroxetine Hcl 40 Mg Tablet) 40 mg PO BEDTIME [facility] [place] Last Admin: 10/13/21 23:12 Dose: 40 mg Documented by: Pharmacy Consult (Consult Rx Perform Med Rec) 1 each MISCELLANE ONCE PRN PRN Reason: Consult order Sodium Chloride (0.9 % Sodium Chloride Flush 3 Ml Syringe) 3 ml IVFLUSH QSINFT [facility] [place] Last Admin: 10/14/21 09:45 Dose: 3 ml Documented by: Spironolactone (Spironolactone 25 Mg Tablet) 25 mg PO DAILY [facility] [place]; Protocol Last Admin: 10/14/21 09:51 Dose: Not Given Documented by: Vitamin D (Cholecalciferol (Vitamin D3) 25 Mcg Tablet) 25 mcg PO BEDTIME [facility] [place] Last Admin: 10/13/21 23:12 Dose: 25 mcg Documented by: Home Medications Medication Instructions Recorded Confirmed Last Taken Type brimonidine 0.15 % eye drops 1 drp OPHTHALMIC (EYE) BEDTIME 10/09/21 10/09/21 10/08/21 History bupropion HCl 100 mg tablet,12 hr 1 tab PO DAILY 10/09/21 10/09/21 10/09/21 History sustained-release cholecalciferol (vitamin D3) 25 25 mcg PO BEDTIME 10/09/21 10/09/21 10/08/21 History mcg (1,000 unit) tablet clonazepam 0.5 mg tablet 1 tab PO DAILY PRN 10/09/21 10/09/21 Unknown History clonidine HCl 0.1 mg tablet 1 tab PO BID 10/09/21 10/09/21 10/09/21 History lisinopril 40 mg tablet 1 tab PO BEDTIME 10/09/21 10/09/21 10/08/21 History multivitamin 1 tab PO BEDTIME 10/09/21 10/09/21 10/08/21 History paroxetine HCl 40 mg tablet 1 tab PO BEDTIME 10/09/21 10/09/21 10/08/21 History simvastatin 20 mg tablet 1 tab PO BEDTIME 10/09/21 10/09/21 10/08/21 History spironolactone 25 mg tablet 1 tab PO DAILY 10/09/21 10/09/21 10/09/21 History Physical Exam Vital Signs: Vital Signs: Last Vital Signs Temp 97.8 F 10/14/21 11:10 Pulse 63 10/14/21 11:10 Resp 18 10/14/21 11:10 BP 162/93 H 10/14/21 11:10 Pulse Ox 97 10/14/21 11:10 Oxygen Flow Rate 11 10/10/21 08:34 BMI result Body Mass Index 48.8 Const: General: no acute distress HENMT: Other: Unremarkable Neck: Neck: Yes normal visual inspection Chest: Chest palpation & inspection: normal inspection of the chest Resp: Auscultation: no crackles and no wheezes Cardio: Palpation: normal PMI Heart sounds: S1 normal heart sound present, S2 normal heart sound present, no gallops, no murmurs and no rubs GI: Palpation (GI): Soft to palpation Back/Spine/Pelvis: Other: unremarkable Skin: Lesions: other Neuro: Cranial nerves: Yes Other cranial nerve findings present Extrem: General: Yes other Psych: Mental Status: other Objective Labs and Meds Result diagrams: 10/12/21 06:55 10/12/21 06:55 ECG Interpretation: EKG with atrial fibrillation and anterior as well as inferior T inversions. Rate 66/Min. Initial EKG had sinus with PACs. T inversions are still seen. Assessment and Plan (1) New onset atrial fibrillation: Status: Acute (2) Acute hypoxemic respiratory failure due to COVID-19: Status: Acute (3) Essential hypertension: Status: Acute High sensitivity troponins are 24.6 and 19.9. EKG findings as above. Overall, she has atrial fibrillation, possibly of new onset but could also have had pre-existing paroxysmal atrial fibrillation. Rate seems well controlled and she has no clear symptoms. Also actively COVID positive. Hence we can focus at this time rate control. As the BP is also quite high, switched atenolol to carvedilol. Agree with anticoagulation. She needs further workup with echocardiogram, stress test as well as Holter. Once a COVID issues resolve, we can arrange all these as outpatient. Follow-up will be arranged as well. Procedures Date of Service Date of Service: 10/14/21
[2021-10-14 13:39] VITALS: BP 121/75; PULSE 73; RESP 18
--- NOTE | 2021-10-14 14:25 | W.MHC.F2F ---
Service Date Service Date: 10/14/21 Encounter Date of encounter: 10/14/21 Reasons for Services Signs and symptoms assessed: New home oxygen Reason for penitentiary: medication management and teach disease management Homebound: Leaving the home is medically contraindicated at this time without the asist of a device and/or another person due th the listed conditions above and below. Reason homebound: shortness of breath with minimal effort Certification: Based on the above findings, I certify that this patient is confined to the home and needs intermittent penitentiary care, physical therapy and/or speech therapy, or continues to need occupational therapy. The patient is under my care, and I have initiated the establishment of the plan of care. The patient will be followed by a physician who will periodically review the plan of care.
== END 2021-10-14 17:00 | disposition home or self-care (01) | DRG 177 ==
LOC: HO.ED 14:47 → HO.EDOVER 15:47 → HO.IMC 10-10 08:44
PROVIDERS: Physician Assistant Medical; Admitting Provider Internal Medicine; Emergency Provider Emergency Medicine; PCP Internal Medicine; Visit Provider Student in an Organized Health Care Education/Training Program
DX: U07.1 COVID-19 (principal); J96.01 Acute respiratory failure with hypoxia; J12.82 Pneumonia due to coronavirus disease 2019; G93.41 Metabolic encephalopathy; Z68.42 Body mass index [BMI] 45.0-49.9, adult; I10 Essential (primary) hypertension; E66.01 Morbid (severe) obesity due to excess calories; I48.91 Unspecified atrial fibrillation; Z79.01 Long term (current) use of anticoagulants; Z79.899 Other long term (current) drug therapy
CPT/HCPCS: 36415; 71045; 71275; 80048; 80053; 81001; 81003; 82310; 82728; 82803; 83605; 83615; 83690; 83735; 83880; 84145; 84484; 85025; 85027; 85379; 85610; 86140; 87040; 87635; 93005; 99285; J0696; J1100; J1650; J3475; J8540; Q9967

== ENCOUNTER → 2021-10-26 09:55 | Outpatient (REF) | payer MEDICARE, BC, OTHER, SELFPAY ==
--- NOTE | ~2021-10-26 | NM_ITS ---
Lexiscan Myocardial perfusion study Indication: Atrial fibrillation, assess for coronary disease and ischemia Technique: The patient was brought in for a Lexiscan perfusion study on 11/03/2021 and was injected 0.4 mg of Lexiscan intravenously. Within a minute of this injection 40 mCi of sestamibi was given intravenously. Images were obtained using the SPECT gamma camera interlaced with the gating device. Images were obtained in supine position. Resting perfusion study was performed on 10/26/2021. Patient was administered 40 mCi of sestamibi intravenously at rest. Images were then obtained in supine position. Total DLP 130mGy-cm. Images were processed with the software and compared side to side in short axis, horizontal long axis and vertical long axis views. Findings: Raw acquisition was reviewed. The stress perfusion study showed diminished tracer uptake in the distal anterior wall. There is slight improvement with CT attenuation correction and hence could have components of soft tissue attenuation artifact. The gated study shows low normal LV systolic function with calculated LVEF of 53%. LV cavity is normal in size. The gated study shows slightly reduced thickening in the distal anterior wall. Resting study shows no significant perfusion abnormality. Gating at rest reveals normal wall motion with ejection fraction at 62%. The findings are consistent with reversible distal anterior defect. NM/NM cardiolite stress test Impression: 1. Myocardial perfusion imaging study shows ischemia in the distal anterior wall. 2. Gated LVEF is 53% during stress and 62% during rest. Correlate with echocardiogram. 3. Transient ischemic dilatation not present. EKG component of the test reported separately.
--- NOTE | 2021-10-26 10:08 | HM_ITS ---
Total monitoring time 3 days and 1 hour. Underlying rhythm is sinus. Minimum heart rate 56/Min. Maximum 98/Min. Average 67/Min. No atrial fibrillation or flutter or AV blocks or pauses. Rare supraventricular ectopy with minimal burden. Rare ventricular ectopy with minimal burden. One run of 5 beats. No patient events. MTDD
--- NOTE | 2021-10-26 10:08 | CA_ITS ---
Acquisition Time: 2021-11-03 09:04:25 Total Exercise Time: 00:02:00 Test Indications: AFIB, ABN EKG Medications: SEE CHART Protocol: LEXISCAN Max HR: 101 BPM 66% of Pred: 152 BPM Max BP: 142/076 mmHG Max Work Load: 1.0 METS Pharmacological stress test with Lexiscan injection, while sitting and kicking her legs, without anginal symptoms, with isolated PAC, with normotensive response to injection, with nondiagnostic EKG for ischemia. In recovery she reported lightheadedness and sob which were treated with Aminophylline 75mg IVP to reverse Lexiscan with resolution of symptoms. Nuclear images pending. Test reviewed with Dr Morel. Referred By: Rubin Morel Overread By: OLGA HARDY
== END ==
LOC: HO.CARD 09:55
PROVIDERS: Visit Provider Internal Medicine
DX: I48.91 Unspecified atrial fibrillation (principal); R94.31 Abnormal electrocardiogram [ECG] [EKG]
CPT/HCPCS: 78452; 93017; 93242; A9500; J2785

== ENCOUNTER → 2021-10-30 11:21 | Outpatient (REF) | payer MEDICARE, BC, OTHER, SELFPAY ==
--- NOTE | 2021-10-30 11:27 | CA_ITS ---
Transthoracic Echocardiogram Patient (Last, First, Middle): Josefina Magallon, Gender: Female Date of : 1955 Age: 66 Procedure Date: 10/30/2021 Procedure Type: Transthoracic Echocardiogram Location: OP Height: 167.64 cm Weight: 106.6 kg BSA: 2.14 m2 Heart Rate: bpm BP: 122 / 70 mmHg On Site Soil Evaluator: Referring MD: Rubin Morel MD Symptoms: I48.91 - Unspecified atrial fibrillation Study Quality: Fair ECG Rhythm: Sinus Conclusions: - The left ventricular systolic function is normal. The visually estimated ejection fraction is between 65-70%. - Evidence suggests grade II (moderate) diastolic dysfunction. - Mildly increased right ventricular cavity size. - No obvious valvular pathology seen on this study. Findings Procedure Information Contrast agent, definity, is being given per protocol without apparent complications. Left Ventricle Normal left ventricular cavity size. There is mildly increased left ventricular wall thickness. The left ventricular systolic function is normal. The visually estimated ejection fraction is between 65-70%. There is no evidence of regional wall motion abnormalities. E/E prime ratio is >15, consistent with elevated filling pressures. Evidence suggests grade II (moderate) diastolic dysfunction. Right Ventricle Mildly increased right ventricular cavity size. There is normal right ventricular systolic function. Atria The left atrium is mildly dilated. The right atrium is normal in size. Aortic Valve The aortic valve structure and function is likely normal. There is no aortic valve stenosis. There is no aortic valve regurgitation. Mitral Valve The mitral valve appears normal. There is trace mitral valve regurgitation. There is no mitral valve stenosis. Pulmonic Valve The pulmonic valve was not well visualized. Tricuspid Valve There is trace tricuspid valve regurgitation. The pulmonary artery systolic pressure is normal. Great Vessels The asc aorta is normal in size. Venous The inferior vena cava is normal in size and collapses greater than 50% with inspiration. Pericardium/Pleural There is a trivial pericardial effusion. Prior Study Comparison No prior study available for comparison. Recommendations, Care & Conclusions No obvious valvular pathology seen on this study. Measurements 2D Linear Measurements IVSd: 1.42 0.6-0.9/0.6-1.0 cm LVIDd: 5.11 3.9-5.3/4.2-5.9 cm LVIDd Index: 2.39 2.4-3.2/2.2-3.1 cm/m2 LVIDs: 2.99 2.0-3.6 cm LVPWd: 1.38 0.7-1.1 cm Ao Root: 3.50 2.1-3.5 cm LA Diam: 4.40 2.7-3.8/3.0-4.0 cm LAIDs Index: 2.06 1.5-2.3 cm/m2 LV Mass: 375.94 67-162/88-224 g LV Mass Index: 175.67 43-95/49-115 g/m2 LVOT Diam: 2.10 3.0+(-)1.3 cm 2D Systolic Function EF 4C: 67.40 >55% EF 2C: 74.70 >55% EF BiP: 71.90 >55% Mitral Valve MV Pk E: 1.08 MV PK A: 0.96 MV Decel Time: 249.00 E/A: 1.10 E'Lateral: 5.00 E'Medial: 6.74 E/E' Med: 16.00 E/E' Lat: 21.60 PHT: 73.00 MVA PHT: 3.01 Decel [place]: 4.34 Aortic Valve AoV Pk [place]: 1.66 AoV Mn Faraz: 1.11 AoV VTI: 0.34 AoV Pk Grad: 11.00 Aov Mn Grad: 5.00 PO Cont.VTI: 2.73 LVOT LVOT Pk [place]: 1.17 LVOT Mn [place]az: 0.85 LVOT VTI: 0.27 LVOT Pk Grad: 5.00 LVOT Mn Grad: 3.00 LVOT Diam: 2.10 LVOT Area: 3.46 Diastolic Function MV Pk E: 1.08 MV Pk A: 0.96 E/A: 1.10 E'Medial: 6.74 E/E' Med: 16.00 E' Laterial: 5.00 E/E' Lat: 21.60 Right Ventricle TAPSE (mm): 34.00 Tricuspid Valve TR Pk Faraz: 1.57 TR Pk Grad: 10.00 Great Vessels Aorta Ao Root-2D: 3.50 2.0-3.7 cm Ao Asc: 3.60 2.1-3.4 cm Pulmonary Valve PV Pk Faraz: 0.99 Peak PV Grad: 4.00 Updated in Other Vendor System with Status of Final Rubin Morel MD electronically signed on 10/31/2021 11:13:10 AM with status of Final
== END ==
LOC: HO.CARD 11:21
PROVIDERS: Visit Provider Internal Medicine
DX: I48.91 Unspecified atrial fibrillation (principal)
CPT/HCPCS: 93306; Q9957

== ENCOUNTER → 2021-11-07 14:40 | Outpatient (BNVA) | payer MEDICARE, BC, OTHER, SELFPAY | PROVIDERS: PCP Internal Medicine; Referring Provider Internal Medicine; Visit Provider Internal Medicine | DX: I25.10 Atherosclerotic heart disease of native coronary artery without angina pectoris (principal); I48.0 Paroxysmal atrial fibrillation; I10 Essential (primary) hypertension; Z79.01 Long term (current) use of anticoagulants | CPT/HCPCS: 99212 ==

== ENCOUNTER 2021-11-27 10:40 | Outpatient (REF) | payer MEDICARE, BC, OTHER, SELFPAY ==
[2021-11-27 14:06] LABS: Hematocrit 40.7 % (37.0-47.0); Hemoglobin 12.7 g/dl (12.0-16.0); Mean Corpuscular HGB Conc 31.2 g/dl (31.0-35.0); Mean Corpuscular Hemoglobin 27.9 pg (27.0-33.0); Mean Corpuscular Volume 89.3 fL (80.0-98.0); Mean Platelet Volume 10.5 fL (9.4-12.3); Platelet Count 238 X10*3/uL (160-400); Red Blood Count 4.56 X10*6/uL (4.20-5.50); Red Cell Distribution Width 14.8 % (11.0-16.0); White Blood Count 7.4 X10*3/uL (4.8-10.8)
[2021-11-27 14:15] LABS: INTERNATIONAL NORM RATIO 1.3 (0.9-1.1); Prothrombin Time 14.6 SEC (9.9-13.0)
[2021-11-27 14:25] LABS: Anion Gap 12 (12-20); Blood Urea Nitrogen 13 mg/dL (9-16); Calcium 9.4 mg/dL (8.4-10.2); Carbon Dioxide 27 mmol/L (22-29); Chloride 106 mmol/L (96-108); Estimated Glomerular Filt Rate > 60; Glucose Random 150 mg/dL (60-115); Potassium 4.2 mmol/L (3.3-5.1); Sodium 141 mmol/L (135-145)
== END 2021-11-27 10:41 | disposition home or self-care (01) ==
LOC: HO.10HDL 10:40
PROVIDERS: Visit Provider Internal Medicine
DX: I25.10 Atherosclerotic heart disease of native coronary artery without angina pectoris (principal)
CPT/HCPCS: 36415; 80048; 85027; 85610

== ENCOUNTER → 2021-12-19 14:44 | Outpatient (BNVA) | payer MEDICARE, BC, OTHER, SELFPAY | PROVIDERS: PCP Internal Medicine; Referring Provider Internal Medicine; Visit Provider Nurse Practitioner Family | DX: I48.0 Paroxysmal atrial fibrillation (principal); I10 Essential (primary) hypertension; R94.39 Abnormal result of other cardiovascular function study; Z98.890 Other specified postprocedural states | CPT/HCPCS: 99212 ==

== ENCOUNTER 2022-03-19 10:36 | Outpatient (REF) | payer MEDICARE, BC, OTHER, SELFPAY ==
[2022-03-19 14:11] LABS: Estimated Average Glucose 143 mg/dL; Hemoglobin A1c % 6.6 %
[2022-03-19 14:17] LABS: Alanine Aminotransferase 18 U/L (0-31); Albumin Level 4.3 g/dL (3.5-5.0); Alkaline Phosphatase 64 U/L (39-117); Anion Gap 13 (12-20); Aspartate Amino Transferase 16 U/L (5-31); Bilirubin Total 0.6 mg/dL (0.0-1.0); Blood Urea Nitrogen 18 mg/dL (9-16); Calcium 9.3 mg/dL (8.4-10.2); Carbon Dioxide 26 mmol/L (22-29); Chloride 108 mmol/L (96-108); Estimated Glomerular Filt Rate > 60; Glucose Random 112 mg/dL (60-115); Potassium 4.5 mmol/L (3.3-5.1); Sodium 142 mmol/L (135-145)
[2022-03-19 14:22] LABS: Total Protein Urine Random < 7 mg/dL (<12)
== END 2022-03-19 10:37 | disposition home or self-care (01) ==
LOC: HO.10HDL 10:36
PROVIDERS: Absent Provider Internal Medicine Nephrology; Visit Provider Internal Medicine
DX: I10 Essential (primary) hypertension (principal); R73.03 Prediabetes; Z86.16 Personal history of COVID-19
CPT/HCPCS: 36415; 80053; 83036; 84156

== ENCOUNTER 2022-03-21 16:54 | Outpatient (REF) | payer MEDICARE, BC, OTHER, SELFPAY ==
--- NOTE | ~2022-03-21 | XR_ITS ---
EXAMINATION: XR RIBS, RIGHT CLINICAL INFORMATION: Status post fall, right rib pain COMPARISON: Chest radiograph from 10/09/2021 TECHNIQUE: 4 views of the right ribs and chest FINDINGS: Bibasilar atelectasis. No pneumothorax. Trachea is midline. Cardiac mediastinal silhouette is stable. No large pleural effusion. Soft tissues are unremarkable. Degenerative changes of the thoracolumbar spine. No acute visualized right-sided rib fractures. Degenerative changes of the glenohumeral joint. XR/XR ribs RT min 3V w CXR1V IMPRESSION: 1. Bibasilar atelectasis. 2. No acute visualized right-sided rib fractures.
== END 2022-03-21 16:55 | disposition home or self-care (01) ==
LOC: HO.XRAY 16:54
PROVIDERS: PCP Internal Medicine; Visit Provider Internal Medicine
DX: R07.81 Pleurodynia (principal); Z91.81 History of falling
CPT/HCPCS: 71101

== ENCOUNTER 2022-05-28 11:45 | Outpatient (REF) | payer MEDICARE, BC, OTHER, SELFPAY ==
[2022-05-28 14:01] LABS: Anion Gap 13 (12-20); Blood Urea Nitrogen 13 mg/dL (9-16); Calcium 9.8 mg/dL (8.4-10.2); Carbon Dioxide 29 mmol/L (22-29); Chloride 105 mmol/L (96-108); Estimated Glomerular Filt Rate > 60; Glucose Random 107 mg/dL (60-115); Potassium 4.3 mmol/L (3.3-5.1); Sodium 143 mmol/L (135-145)
[2022-05-28 14:18] LABS: Estimated Average Glucose 143 mg/dL; Hemoglobin A1c % 6.6 %
== END 2022-05-28 11:46 | disposition home or self-care (01) ==
LOC: HO.10HDL 11:45
PROVIDERS: Visit Provider Internal Medicine
DX: Z13.89 Encounter for screening for other disorder (principal)
CPT/HCPCS: 36415; 80048; 83036

== ENCOUNTER → 2022-06-13 09:20 | Outpatient (BNVA) | payer MEDICARE, BC, OTHER, SELFPAY | PROVIDERS: PCP Internal Medicine; Referring Provider Internal Medicine; Visit Provider Internal Medicine | DX: Z01.810 Encounter for preprocedural cardiovascular examination (principal); I48.0 Paroxysmal atrial fibrillation; I10 Essential (primary) hypertension; Z79.01 Long term (current) use of anticoagulants; Z79.899 Other long term (current) drug therapy; Z98.890 Other specified postprocedural states | CPT/HCPCS: 99212 ==

== ENCOUNTER 2022-07-03 07:39 | Emergency (ER) | payer MEDICARE, BC, OTHER, SELFPAY ==
[2022-07-03] VITALS (11 sets, daily range): BP systolic 153–198; BP diastolic 69–102; PULSE 60–77; RESP 12–20; TEMP 36.1–37; O2SAT 94–99; BMI 40.3
--- OUTSIDE RECORDS SUMMARY | 2022-07-03 08:10 | XMS_ITS ---
:1955 Author Name MercedesRadu montana Care Team Providers Name Role Phone Radu Welch Unavailable Unavailable PROBLEMS Type Condition ICD9-CM [id number] Onset Condition SNOMED Cod e Code Code Dates Status Problem Equinus M24.571 Active 376922702 contracture of right ankle Problem Equinus M24.572 Active 591452033 contracture of left ankle Problem Hammer toe of left M20.42 Active 1 [id number] foot Problem Hammer toe of M20.41 Active 568556 [id number] right foot Problem Type 2 diabetes E11.42 Active 7137 20200 mellitus with diabetic polyneuropathy ALLERGIES No Known Allergies ENCOUNTERS Encounter Location Date Diagnosis [address] Jun, Oth er viral warts B07.8 ; Chris Perez [place] Pain in left fo ot M79.672 [id number] and Type 2 diabe nader mellitus with di abetic polyneuropathy E 11.42 [facility] [address] [facility], Oth er viral warts B07.8 ; Chris Perez [place] Pain in left fo ot M79.672 [address] ; Type 2 diabete s mellitus with diabetic polyneuropathy E 11.42 and Ingrowing nail L 60.[address] [facility] Nov, Ingrowing nail L 60.0 ; [place] [address] Type 2 diabetes mellitus with diabetic polyneuropathy E 11.42 ; Other viral wart s B07.8 and Pain in left foot M79.[address] Oct, [place] [address] Aug, Gen eralized edema R60.1 ; Chris Perez [place] Ingrowing nail L60.0 ; [address] Exostosis of bon e of foot M89.8X7 ; Type 2 diabetes mellitus with di abetic polyneuropathy E 11.42 ; Other viral wart s B07.8 ; Pain in left elzbieta t M79.672 ; Arthralgia of left foot M25.572 ; Equinu s contracture of l eft ankle M24.572 and Equi nus contracture of r ight ankle M24.[address] Apr, Ing rowing nail L60.0 ; Chris Perez [place] Exostosis [place] foot [address] M89.8X7 ; Type 2 diabetes mellitus with di abetic polyneuropathy E 11.42 ; Other viral wart s B07.8 ; Pain in left elzbieta t M79.672 and Arthralgia o f left foot M25.[address] Apr, [place] [address] Mar, [place] [address] Dec, Ing rowing nail L60.0 ; Chris Perez [place] Exostosis of [place]ela [place] of foot [address] M89.8X7 ; Type 2 diabetes mellitus with di abetic polyneuropathy E 11.42 ; Other viral wart s B07.8 ; Pain in left elzbieta t M79.672 and Arthralgia o f left foot M25.[address] Sep, Typ e 2 diabetes mellitus [place] with diabetic [address] polyneuropathy E 11.42 ; Other viral wart s B07.8 and Pain in left foot M79.[address] Jun, Typ e 2 diabetes mellitus [place] with diabetic [address] polyneuropathy E 11.42 ; Other viral wart s B07.8 ; Pain in left elzbieta t M79.672 and Neuralgia an d neuritis, unspec ified M79.[address] Mar, Typ e 2 diabetes mellitus [place] with diabetic [address] polyneuropathy E 11.42 ; Ingrowing nail L 60.0 ; Other viral wart s B07.8 and Pain in left foot M79.[address] Dec, Typ e 2 diabetes mellitus [place] with diabetic [address] polyneuropathy E 11.42 ; Other viral wart s B07.8 and Pain in left foot M79.[address] Jun, Typ e 2 diabetes mellitus [place] with diabetic [address] polyneuropathy E 11.42 ; Xerosis cutis L8 5.3 ; Other viral wart s B07.8 ; Pain in left elzbieta t M79.672 ; Hammer toe of left foot M20.42 and Hamme r toe of right foot M20.4 [address] [facility] [address] [place] [address] Rd Jun, Idiopathic [place], [place] [address] ankle a nd foot M10.072 ; Type 2 diabetes mellitus with diabetic polyneuropathy E 11.42 and Neuropathy G62.9 [facility] May, [place] [address] May, Idi opathic gout, left Chris Perez [place] ankle and foot M10.072 and [address] Type 2 diabetes mellitus with diabetic polyneuropathy E 11.[address] January, [place] [address] Dec, 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 ; Other [address] myositis, left a nkle and foot M60.872 ; A chilles tendinitis, left leg M76.62 ; Neuropa thy G62.9 and Exostosis of bone of foot M89.8X7 [address] Mar, [facility] [place] [address] [facility] Aug, [place] [address] IMMUNIZATIONS No Known Immunizations SOCIAL HISTORY Qualifiers Date Former Smoker REASON FOR REFERRAL Referring Provider First Name Radu Referring Provider Last Name Rebekah Referred Organization [facility] Referred Provider Jayashree Fink Referred Address [address] [place] [phone] Referred Provider Specialty Podiatry FUNCTIONAL STATUS PLAN OF CARE Activity Details Follow Up 3 Months Reason: Future Appointment Provider Name:Jayashree Fink , 2022-10-11 09:00:00 AM, [address] [place] [address], [phone], Referral Jayashree Fink, [address] [place] [address], [phone], [email or web address] [place]ole, Future/Pending Procedure 29642-Tcvy Destruction, 1-14 Future/Pending Procedure 98733-ARFP SKIN LESIONS, 2 T O 4 Future/Pending Procedure P8450-ZWNOQGKS DYSTROPHIC NA ILS ANY # Future/Pending Procedure 29485-Brbf Destruction, 1-14 Future/Pending Procedure 77550-Boykgyho Plate Future/Pending Procedure 88357-NVRX SKIN LESIONS, 2 T O 4 Future/Pending Procedure R3046-UMWHWJXU DYSTROPHIC NA ILS ANY # Future/Pending Procedure 39388-Qxyi Destruction, 1-14 Future/Pending Procedure 43016-Eowivano Plate Future/Pending Procedure 07781-IAAL SKIN LESIONS, 2 T O 4 Future/Pending Procedure P8160-NMWVDSRR DYSTROPHIC NA ILS ANY # Future/Pending Procedure 49607-Ogoy Destruction, 1-14 Future/Pending Procedure 13697-Yuracssk Plate Future/Pending Procedure 85153-TWRV SKIN LESIONS, 2 T O 4 Future/Pending Procedure P6102-EWHFNYNN DYSTROPHIC NA ILS ANY # Future/Pending Procedure 31224-Eayh Destruction, 1-14 Future/Pending Procedure 25071-Afntdbmu Plate Future/Pending Procedure 37433-TRLV SKIN LESIONS, 2 T O 4 Future/Pending Procedure S7784-NTHVCCAO DYSTROPHIC NA ILS ANY # Future/Pending Procedure 55277-Temi Destruction, 1-14 Future/Pending Procedure 70725-Itwlsvxz Plate Future/Pending Procedure 12609-DCBQ SKIN LESIONS, 2 T O 4 Future/Pending Procedure B5823-JZZJRUPA DYSTROPHIC NA ILS ANY # Future/Pending Procedure 75609-Anrz Destruction, 1-14 Future/Pending Procedure 17346-FUDD SKIN LESIONS, 2 T O 4 Future/Pending Procedure Y0089-XNUXOWCT DYSTROPHIC NA ILS ANY # Future/Pending Procedure 90816-Yyjf Destruction, 1-14 Future/Pending Procedure 34614-RQNI SKIN LESIONS, 2 T O 4 Future/Pending Procedure W9044-ZNICPXSD DYSTROPHIC NA ILS ANY # Future/Pending Procedure 69655-Sguv Destruction, 1-14 Future/Pending Procedure 39559-Tvzyqbct Plate Future/Pending Procedure 93356-Mgsnqrej Plate Each Ad ditional Future/Pending Procedure 78010-NIFV SKIN LESIONS, 2 T O 4 Future/Pending Procedure K0277-WSVOVMGB DYSTROPHIC NA ILS ANY # Future/Pending Procedure 07144-Udyl Destruction, 1-14 Future/Pending Procedure 26945-NTFV SKIN LESIONS, 2 T O 4 Future/Pending Procedure M0032-RFBSLKER DYSTROPHIC NA ILS ANY # Future/Pending Procedure 34403-Eqxt Destruction, 1-14 Future/Pending Procedure 96409-ZQIZ SKIN LESIONS, 2 T O 4 Future/Pending Procedure U9419-ANMPVTZO DYSTROPHIC NA ILS ANY # VITAL SIGNS Height 5 ft 6 in in 2022-07-02 Weight 240 lbs 2022-07-02 BMI 38.73 kg/m2 2022-07-02 Heart Rate 52 /min 2016-07-03 Temperature 97.3 degrees Fahrenheit 2021-01-12 Blood pressure systolic 120 mm Hg 2022-07-02 Blood pressure diastolic 79 mm Hg 2022-07-02 MEDICATIONS Medication Instructions Dosage Frequency Start End Duration Statu s Date Date Colcrys 0.6 MG Orally Once a 1 tablet 24h 08 Sep, 5 days No t-Ji day 2015 ing Atenolol 25 MG Orally Once a 2 24h Not -Ji day ing cloNIDine HCl 0.1 MG as Act suhas directed zzzCompression . . . . Active Stockings 20-30mm Hg Paxil Not-Ji ing Physical Therapy . . 2-3x/week . Nov, 3-4 weeks Not-Ji 2015 ing eliquis 5 mg Active Spironolactone 25 MG 1 tablet 30 day(s) Active Lisinopril 20 MG Orally Once a 2 24h A ctive day buPROPion HCl ER (SR) Orally Once a 1 tablet 24h 30 day(s) Not-Ji 100 MG day in the ing morning Keflex 500 MG Orally Twice a 1 capsule 12h 10 day(s) Not-Ji day ing PARoxetine HCl 40 MG Orally Once a 1 tablet 24h 30 d ay(s) Active day in the morning Night Splint AFO - as Nov, Not-T ak L1930 directed 2015 ing LORazepam 0.5 MG Orally every 6 1 tablet 6h Not-Ji hrs as needed ing Simvastatin 20 MG Active Carvedilol 12.5 MG Orally Twice a 1 tablet 12h 30 da y(s) Active day with food Brimonidine Tartrate Ophthalmic 1 drop 8h Not-Ji 0.15 % every 8 hrs into ing affected eye Vitamin D Active hydroCHLOROthiazide Not- Ji ing hydrALAZINE HCl 25 MG Orally Three 1 tablet 8h 30 d ay(s) Active times a day with food Lidoderm 5 % Externally 1 patch to 24h Not-T ak Once a day intact ing skin remove after 12 hours PROCEDURES Procedure Date Ordered Result Body Site TRIM SKIN LESIONS, 2 TO 4 Oct 13, 2020 Avulsion Plate November 28, 2021 Wart Destruction, -Jul 02, 2022 Wart Destruction, -Aug 31, 2021 Wart Destruction, -March 29, 2022 Wart Destruction, -January 12, 2021 TRIM SKIN LESIONS, 2 TO 4 November 28, 2021 Avulsion Plate May 15, 2021 TRIMMING DYSTROPHIC NAILS ANY # May 15, 2021 Wart Destruction, -Jul 20, 2019 TRIMMING DYSTROPHIC NAILS ANY # Oct 13, 2020 TRIM SKIN LESIONS, TO Aug 31, 2021 TRIMMING DYSTROPHIC NAILS ANY # Jul 20, 2019 Avulsion Plate January 12, 2021 X-RAY EXAM OF LEFT FOOT 3V Jun 07, 2015 TRIM SKIN LESIONS, 2 TO 4 Jul 02, 2022 TRIM SKIN LESIONS, TO Jul 07, 2020 TRIMMING DYSTROPHIC NAILS ANY # January 18, 2020 TRIMMING DYSTROPHIC NAILS ANY # March 29, 2022 TRIM SKIN LESIONS, TO Jul 20, 2019 Wart Destruction, -Oct 13, 2020 TRIM SKIN LESIONS, TO January 18, 2020 Wart Destruction, -January 18, 2020 TRIM SKIN LESIONS, TO April 18, 2020 TRIMMING DYSTROPHIC NAILS ANY # November 28, 2021 Wart Destruction, -May 15, 2021 TRIM SKIN LESIONS, 2 TO May 15, 2021 Wart Destruction, -November 28, 2021 TRIMMING DYSTROPHIC NAILS ANY # January 12, 2021 TRIMMING DYSTROPHIC NAILS ANY # Jul 02, 2022 TRIMMING DYSTROPHIC NAILS ANY # Aug 31, 2021 TRIM SKIN LESIONS, 2 TO March 29, 2022 Wart Destruction, -Jul 07, 2020 TRIM SKIN LESIONS, TO January 12, 2021 TRIMMING DYSTROPHIC NAILS ANY # April 18, 2020 Avulsion Plate Aug 31, 2021 Wart Destruction, -April 18, 2020 Avulsion Plate March 29, 2022 TRIMMING DYSTROPHIC NAILS ANY # Jul 07, 2020 Avulsion Plate Each Additional April 18, 2020 Avulsion Plate April 18, 2020 RESULTS Name Result Date Reference Range HEMOGLOBIN A1C (GLYCOHEMOGLOBIN) 2020-11-28 TOTAL HEMOGLOBIN (HGBA1C) HEMOGLOBIN A1C (HH) HEMOGLOBIN A1C % (HH) 6.3 ESTIMATED AVG GLUCOSE HEMOGLOBIN A1C (GLYCOHEMOGLOBIN) 2020-08-01 TOTAL HEMOGLOBIN (HGBA1C) HEMOGLOBIN A1C (HH) HEMOGLOBIN A1C % (HH) 6.4 ESTIMATED AVG GLUCOSE X ray : Foot, left 3V REASON FOR VISIT Insurance Providers [facility] Member Patient Patient Patient Patient Patient Subscriber Subscriber Subscriber Group Insurance Plan Plan Plan Plan ID Relationship Address Phone Name Date of ID Name Date of No Type Insurance Insurance Insurance Coverage to Subscriber Address Phone Name Dates [employer] [phone] [facility] [place] [facility] [id number] Federal [id number] Federal e [facility] [place] [id number] zo Medicare [place] [phone] Medicare self [place] [id number] Govt Svcs 41 e Inc [address] [place] [address] [phone] Susanna [id number] [phone] [id number] for Life [id number] for Life e [facility] [place] [phone] zo MEDICAL (GENERAL) HISTORY Type Description Date Medical History hypertension Medical History depression Medical History Arthritis Medical History Anxiety disorder Medical History Glaucoma Medical History Neuropathy Medical History Chicken pox Medical History Back,Hip,and Knee pain Medical History Carpal tunnel Medical History NIDDM Medical History type II diabetes Surgical History hysterectomy 10/30/13 Surgical History carpal tunnel surgery Surgical History tumor removal Surgical History appendectomy Surgical History Pituitary Surgical History sinus surgery 06/25/22 Hospitalization History [facility]- covid 09/2021
--- NOTE | 2022-07-03 08:11 | ED.EPISTAXIS ---
History of Present Illness General Chief Complaint: Epistaxis Stated Complaint: bloody nose post surgery Time Seen by Provider: 07/03/22 07:59 Source: patient Mode of arrival: ambulatory Limitations: no limitations History of Present Illness HPI Narrative: 66 y/o female with a PMH significant for essential HTN, prediabetes, hyperlipedemia, Asthma, Atherosclerotic cardiovascular disease, anxiety, paroxysmal atrial fibrillation on Eliquis, s/p cardiac cath, and abnormal nuclear stress test presenting with a spontaneous nose bleed from her bilateral nares that started when she woke up. She had a cyst removed in her left sinus [address] Sandoval at [facility]. She has been doing post-op sinus rinses as directed without issue. She the patient reports the bleeding suddenly started this morning when she woke. The patient reports the bleeding is bright red, and constant coming from both nares. The patient denies a history of trauma. Of note patient is on eliquis for A-fib, and took her morning dose. She arrives to the ER with BP 198/102. She took her home clonidine and hydralazine. Location: Yes bilateral nares Onset/current episode: Yes hour(s) Duration: Yes constant Pertinent past history: Yes hypertension and Yes other (history of left sinus cyst removal 8 days ago) Context: Yes other anticoagulant use (eliquis) Associated symptoms: Yes headache Treatment prior to arrival: Yes nose pinching and Yes head leaning forward Related Data Home Medications Medication Instructions Recorded Confirmed brimonidine 0.15 % eye drops 1 drp ophthalmic (eye) BEDTIME 10/09/21 06/13/22 bupropion HCl 100 mg tablet,12 hr 1 tab PO DAILY 10/09/21 06/13/22 sustained-release cholecalciferol (vitamin D3) 25 25 mcg PO BEDTIME 10/09/21 06/13/22 mcg (1,000 unit) tablet clonazepam 0.5 mg tablet 1 tab PO DAILY PRN Anxiety 10/09/21 06/13/22 multivitamin 1 tab PO BEDTIME 10/09/21 06/13/22 paroxetine HCl 40 mg tablet 1 tab PO BEDTIME 10/09/21 06/13/22 clonidine HCl 0.1 mg tablet 0.1 mg PO BID 11/07/21 06/13/22 lisinopril 40 mg tablet 40 mg PO BEDTIME 11/07/21 06/13/22 simvastatin 20 mg tablet 20 mg PO BEDTIME 11/07/21 06/13/22 spironolactone 25 mg tablet 25 mg PO DAILY 11/07/21 06/13/22 Previous Rx's Medication Instructions Recorded apixaban 5 mg tablet (Eliquis) 5 mg PO BID 90 days #180 tabs 11/07/21 carvedilol 12.5 mg tablet 12.5 mg PO BID 90 days #180 tabs 11/07/21 hydralazine 25 mg tablet 25 mg PO TID 90 days #270 tabs 11/07/21 Allergies Allergy/AdvReac Type Severity Reaction Status Date / Time nifedipine [NIFEDIPINE] Allergy Unknown UNKNOWN- Verified 06/13/22 09:37 DOES NOT REMEMBER Pt states no known allergy to Allergy Unknown n/a Uncoded 06/13/22 09:37 Review of Systems Review of Systems: Constitutional: No Fever, No Chills ENT/Mouth: No sore throat, No Rhinorrhea, No Swallowing Difficulty, +Epistaxis Eyes: + Eye Pain, No Swelling, No Redness Cardiovascular: No Chest Pain, No SOB Respiratory: No Cough, No Sputum, No Wheezing, No dyspnea Gastrointestinal: No Nausea, No Vomiting, No Diarrhea, No abdominal Pain, No Hematochezia, No Melena Genitourinary: No Hematuria Skin: No Skin Lesions, No rash Neuro: No Weakness, No Numbness, No Dizziness, No Headache Psych: + Anxiety/Panic, No Depression Heme/Lymph: No Bruising PMFSH Past Medical History Medical History (Updated 07/03/22 @ 17:17 by DONOVAN Tan) HTN (hypertension) New onset atrial fibrillation PAF (paroxysmal atrial fibrillation) Prediabetes Surgical History History of hysterectomy S/P cardiac cath Family History Family History Mother Bladder cancer Social History Social History Alcohol intake: never Patient Tobacco Use Status: Former Tobacco user Use of substances other than those prescribed or required for medical reasons: No Advance Directives: Yes Advance Directives on File: Yes Advance Directives Date on File: 07/03/22 service: No Current occupational status: retired Physical Exam Vital Signs: Vital Signs: Last Vital Signs Temp 97.8 F 07/03/22 15:42 Pulse 67 07/03/22 15:42 Resp 18 07/03/22 15:42 BP 180/75 H 07/03/22 15:42 Pulse Ox 94 07/03/22 15:42 O2 Del Method 07/03/22 15:42 BMI result Body Mass Index 40.3 Appearance: Alert. Oriented X3. No acute distress. Eyes: Pupils equal, round and reactive to light. ENT: Pharynx with dry mucus membranes. dried blood on the hard palate and tongue. difficult to visualize the posterior oropharynx. bilateral nares with clots and active bleeding, unable to visualize source. Bilateral hemotypanium present Neck: Normal inspection. Neck supple. CVS: Normal heart rate and rhythm. Pulses normal. Respiratory: No respiratory distress. Breath sounds normal. Abdomen: Soft and nontender. +BS x4 Skin: Skin warm and dry. Normal skin color. Normal skin turgor. No rashes. Extremities: No lower extremity edema. Neuro: Oriented X 3. No motor deficit. No sensory deficit. Course Course Course Narrative: 8AM -66 y/o female with a PMH significant for essential HTN, prediabetes, hyperlipedemia, Asthma, Atherosclerotic cardiovascular disease, anxiety, paroxysmal atrial fibrillation, s/p cardiac cath, and abnormal nuclear stress test presenting with a spontaneous epistaxis. On presenting the patient was HTN at 198/102. The patient is hemodynamically stable at this time. Pateint is on eliquis due to A-fib which she did take this morning. Reevaluation(s) Reevaluation #1: Blood pressure decreased to 178/84. Labetaolol given. Dried blood clots observed in both nostrils. Oxymetazoline spray was used. TXA was topically applied. Nose was clamped. Time: 08:52 Reevaluation #2: TXA soaked gauze removed. No active bleeding initially, however bleeding started from left nare. unable to visualize source. Afrin applied as nose clamp placed. Will attempt TXA sinus rinse. Spoke with staff at Dr. Sandoval's office and they said it is okay to use nasal packing if needed, no contraindication with her recent surgery. She has a post-op follow up on at 2:30. BP back up to 190s, additional IV labetalol dose has been given. Time: 10:19 Reevaluation #3: After multiple attempts to stop the bleeding there continues to be oozing from the left nare. The right nare restarted bleeding after sneezing. Several clots were removed with ongoing bleeding after 2 hours of Afrin, TXA and direct pressure. Patient ultimately required bilateral nasal packing with rhinorockets. Spoke again with Dr. Sandoval's staff - they are recommending she be transferred to [facility] for further management given her bilateral nasal packing. Will send via ambulance for airway monitoring given aspiration risk. Patient and agree with plan. Dr. Pena in the ER has accepted. Consultations Consultation #1: ENT [place] Dr. Sandoval's office MDM - Epistaxis Lab Data Result diagrams: 07/03/22 14:47 07/03/22 14:47 Labs: Lab Results 07/03/22 07/03/22 07/03/22 Range/Units 14:47 14:47 14:47 WBC 10.0 (4.8-10.8) X10*3/uL RBC 4.81 (4.20-5.50) X10*6/uL Hgb 13.8 (12.0-16.0) g/dl Hct 42.8 (37.0-47.0) % MCV 89.0 (80.0-98.0) fL MCH 28.7 (27.0-33.0) pg MCHC 32.2 (31.0-35.0) g/dl RDW 13.3 (11.0-16.0) % Plt Count 220 (160-400) X10*3/uL MPV 9.1 L (9.4-12.3) fL Immature Gran % (Auto) 0.8 H (0.0-0.4) % Neut % (Auto) 69.2 (45-73) % Lymph % (Auto) 21.4 (20-40) % Cobb % (Auto) 7.2 (2-11) % Eos % (Auto) 1.1 (0-4) % Baso % (Auto) 0.3 (0-2) % Lymph # (Auto) 2.1 (1.2-4.9) X10*3/uL Cobb # (Auto) 0.7 (0.1-1.2) X10*3/uL Eos # (Auto) 0.1 (0.0-0.4) X10*3/uL Baso # (Auto) 0.0 (0.0-0.2) X10*3/uL Abs Immat Gran (auto) 0.08 H (0.00-0.03) X10*3/uL Absolute Neuts (auto) 6.9 (2.0-8.3) x10*3/uL Absolute Nucleated RBC 0.000 (0.0-0.012) X10*3/uL Nucleated RBC % (auto) 0.0 (0.0-0.2) /100WBC PT 14.0 H (10.0-13.1) SEC INR 1.2 H (0.9-1.1) APTT 33.3 (26.0-36.4) SEC Sodium 142 (135-145) mmol/L Potassium 4.1 (3.3-5.1) mmol/L Chloride 106 (96-108) mmol/L Carbon Dioxide 24 (22-29) mmol/L Anion Gap 16 (12-20) BUN 11 (9-16) mg/dL Creatinine 0.65 (0.5-1.4) mg/dL Estim Creat Clear Calc 105.8 Estimated GFR > 60 Random Glucose 133 H (60-115) mg/dL Calcium 9.2 D (8.4-10.2) mg/dL Magnesium 1.9 (1.6-2.6) mg/dL Total Bilirubin 0.6 (0.0-1.0) mg/dL Direct Bilirubin 0.2 (0.0-0.5) mg/dL AST 24 D (5-31) U/L ALT 30 (0-31) U/L Alkaline Phosphatase 75 (39-117) U/L Total Protein 7.2 (6.5-8.0) g/dL Albumin 4.4 (3.5-5.0) g/dL Procedures Epistaxis Control Time Out Performed: Yes Nostril: Yes bilateral Nose prepped with: Yes oxymetazoline Direct inspection: Yes posterior source identified Direct inspection method: Yes headlamp and Yes otoscope Clots removed by: Yes suction and Yes manually Epistaxis treatment: Yes TXA soaked gauze and Yes inflatable pack Results of treatment: Yes treatment well tolerated and Yes continued epistaxis Complications: Yes pain Critical Care Time Critical Care Time Critical Care Time: Yes Total Critical Care Time: 44 Attestation: I have personally provided critical care time exclusive of time spent on separately billable procedures. Time includes review of lab data, radiology results, discussion with consultants, and monitoring for potential decompensation. Intervention performed as documented. Discharge Plan Discharge Clinical Impression: Epistaxis, HTN (hypertension) Patient Disposition: [facility] Transfer Details: [facility] Prescriptions: No Action clonazepam 0.5 mg tablet 1 tab PO DAILY PRN (Reason: Anxiety) bupropion HCl 100 mg tablet sustained-release 12 hr 1 tab PO DAILY paroxetine HCl 40 mg tablet 1 tab PO BEDTIME brimonidine 0.15 % drops 1 drp ophthalmic (eye) BEDTIME multivitamin Tablet 1 tab PO BEDTIME cholecalciferol (vitamin D3) 25 mcg (1,000 unit) Tablet 25 mcg PO BEDTIME clonidine HCl 0.1 mg tablet 0.1 mg PO BID lisinopril 40 mg tablet 40 mg PO BEDTIME simvastatin 20 mg tablet 20 mg PO BEDTIME spironolactone 25 mg tablet 25 mg PO DAILY carvedilol 12.5 mg tablet 12.5 mg PO BID 90 Days Qty: 180 3RF Protocol: Hold for SBP/HR < HOLD for SBP < : 90 HOLD for HR < : 60 Eliquis 5 mg tablet 5 mg PO BID 90 Days Qty: 180 3RF hydralazine 25 mg tablet 25 mg PO TID 90 Days Qty: 270 3RF Protocol: Hold for SBP< HOLD for SBP < : 90
[2022-07-03] MEDS: Labetalol HCL 100 MG/20 ML VIAL 10 MG IVPUSH ×3 (08:29→14:49)
[2022-07-03] MEDS: Tranexamic Acid 1,000 MG/10 ML VIAL 500 MG INTRANASAL ×3 (08:30→10:32)
[2022-07-03] MEDS: Oxymetazoline HCl 0.05 % Nasal 15 ML SPRAY 2 SPRAY NOSTRIL-B (08:30)
--- NOTE | 2022-07-03 10:01 | PC.NURSE ---
no bleeding at this time, dry blood visible in mouth, nad, skin wpd
--- NOTE | 2022-07-03 10:12 | MHC.CM.ED ---
Received notification from Kelly of registration that patient wanted to complete a HCP. Met with patient. HCP completed, signed and witnessed. Original given to patient. Copy placed in chart. Continue to monitor for d/c needs.
[2022-07-03] MEDS: Acetaminophen 325 MG TABLET 975 MG PO (13:33)
[2022-07-03] MEDS: hydrALAZINE HCl 25 MG TABLET PO (13:34)
[2022-07-03] MEDS: oxyCODONE HCl Immed Release 5 MG TABLET PO (13:34)
--- NOTE | 2022-07-03 14:26 | PC.NURSE ---
Addendum entered by Jolly Howard 07/03/22 14:41: Nurse to Nurse report Original Note: [facility]'s Transfer line called at 1415 per Snehal MAN, accepted patient ER to ER. Donnie called at 1425 for a bls transfer,ETA 2 to 3 hours. RN and Rodolfo Brian aware.
[2022-07-03] MEDS: HYDROmorphone HCl 0.5 MG/0.5 ML SYRINGE IVPUSH ×2 (14:50→18:49)
[2022-07-03 14:52] LABS: MANUAL DIFF FLAG NO
[2022-07-03 14:56] LABS: Basophils Percent Auto 0.3 % (0-2); Eosinophils Absolute Auto 0.1 X10*3/uL (0.0-0.4); Eosinophils Percent Auto 1.1 % (0-4); Hematocrit 42.8 % (37.0-47.0); Hemoglobin 13.8 g/dl (12.0-16.0); Imm Gran Abs Auto 0.08 X10*3/uL (0.00-0.03); Imm Gran Pct Auto 0.8 % (0.0-0.4); Lymphocytes Absolute Auto 2.1 X10*3/uL (1.2-4.9); Lymphocytes Percent Auto 21.4 % (20-40); Mean Corpuscular HGB Conc 32.2 g/dl (31.0-35.0); Mean Corpuscular Hemoglobin 28.7 pg (27.0-33.0); Mean Platelet Volume 9.1 fL (9.4-12.3); Monocytes Absolute Auto 0.7 X10*3/uL (0.1-1.2); Monocytes Percent Auto 7.2 % (2-11); Neutrophils Absolute Auto 6.9 x10*3/uL (2.0-8.3); Neutrophils Percent Auto 69.2 % (45-73); Platelet Count 220 X10*3/uL (160-400); Red Blood Count 4.81 X10*6/uL (4.20-5.50); Red Cell Distribution Width 13.3 % (11.0-16.0)
[2022-07-03 15:01] LABS: INTERNATIONAL NORM RATIO 1.2 (0.9-1.1)
[2022-07-03 15:04] LABS: Partial Thromboplastin Time 33.3 SEC (26.0-36.4)
[2022-07-03 15:10] LABS: Alanine Aminotransferase 30 U/L (0-31); Albumin Level 4.4 g/dL (3.5-5.0); Alkaline Phosphatase 75 U/L (39-117); Anion Gap 16 (12-20); Aspartate Amino Transferase 24 U/L (5-31); Bilirubin Direct 0.2 mg/dL (0.0-0.5); Bilirubin Total 0.6 mg/dL (0.0-1.0); Blood Urea Nitrogen 11 mg/dL (9-16); Calcium 9.2 mg/dL (8.4-10.2); Carbon Dioxide 24 mmol/L (22-29); Chloride 106 mmol/L (96-108); Creatinine Clr Calc Pharmacy 105.8; Estimated Glomerular Filt Rate > 60; Glucose Random 133 mg/dL (60-115); Magnesium 1.9 mg/dL (1.6-2.6); Potassium 4.1 mmol/L (3.3-5.1); Sodium 142 mmol/L (135-145); Total Protein 7.2 g/dL (6.5-8.0)
--- NOTE | 2022-07-03 15:43 | PC.NURSE ---
report obtained from faheem, resumed care of this patient at 1530, patient a&ox3, shelter monitor intact-nsr on monitor, vss, pt c/o 05/09 pain, is to be txfr to [facility] via ambulance, pt aware, nasal packing intact, will continue to monitor
--- NOTE | 2022-07-03 17:32 | PC.NURSE ---
This RN has given report to MECHELLE watson at [facility] AT 5:32 P.M. will continue to monitor until pt is transferred.
--- NOTE | 2022-07-03 18:40 | PC.NURSE ---
Pt BP is elevated, Pt is active bledding. Pt reports still in pain 05/09. will continue to monitor.
--- NOTE | 2022-07-03 18:50 | PC.NURSE ---
ambulance awaiting patient to txfr to [facility] pt medicated for pain prior to discharge
== END 2022-07-03 19:12 | disposition short-term general hospital (02) ==
PROVIDERS: Physician Assistant; Emergency Provider Emergency Medicine; PCP Internal Medicine
DX: R04.0 Epistaxis (principal); I10 Essential (primary) hypertension; R73.03 Prediabetes; I48.91 Unspecified atrial fibrillation; Z79.899 Other long term (current) drug therapy; Z79.4 Long term (current) use of insulin; Z87.891 Personal history of nicotine dependence
CPT/HCPCS: 30905; 36415; 80048; 80076; 83735; 85025; 85610; 85730; 96374; 96375; 96376; 99285; J1170

== ENCOUNTER → 2022-08-28 11:14 | Outpatient (BNVA) | payer MEDICARE, BC, OTHER, SELFPAY | PROVIDERS: PCP Internal Medicine; Visit Provider Psychiatry & Neurology Psychiatry | DX: F34.1 Dysthymic disorder (principal); F41.1 Generalized anxiety disorder; I48.0 Paroxysmal atrial fibrillation; I10 Essential (primary) hypertension; R73.03 Prediabetes; Z79.01 Long term (current) use of anticoagulants; Z79.899 Other long term (current) drug therapy | CPT/HCPCS: 90833; 99212 ==

== ENCOUNTER 2022-09-14 09:57 | Outpatient (REF) | payer MEDICARE, BC, OTHER, SELFPAY ==
[2022-09-14 10:57] LABS: MANUAL DIFF FLAG NO
[2022-09-14 11:01] LABS: Basophils Percent Auto 0.5 % (0-2); Eosinophils Absolute Auto 0.3 X10*3/uL (0.0-0.4); Eosinophils Percent Auto 3.6 % (0-4); Hematocrit 41.8 % (37.0-47.0); Hemoglobin 13.3 g/dl (12.0-16.0); Imm Gran Abs Auto 0.05 X10*3/uL (0.00-0.03); Imm Gran Pct Auto 0.6 % (0.0-0.4); Lymphocytes Absolute Auto 2.6 X10*3/uL (1.2-4.9); Lymphocytes Percent Auto 31.4 % (20-40); Mean Corpuscular HGB Conc 31.8 g/dl (31.0-35.0); Mean Corpuscular Hemoglobin 28.5 pg (27.0-33.0); Mean Corpuscular Volume 89.5 fL (80.0-98.0); Mean Platelet Volume 9.9 fL (9.4-12.3); Monocytes Absolute Auto 0.6 X10*3/uL (0.1-1.2); Monocytes Percent Auto 6.9 % (2-11); Neutrophils Absolute Auto 4.6 x10*3/uL (2.0-8.3); Platelet Count 231 X10*3/uL (160-400); Red Blood Count 4.67 X10*6/uL (4.20-5.50); Red Cell Distribution Width 13.2 % (11.0-16.0); White Blood Count 8.1 X10*3/uL (4.8-10.8)
[2022-09-14 12:05] LABS: Estimated Average Glucose 143 mg/dL; Hemoglobin A1c % 6.6 %
[2022-09-14 12:48] LABS: Alanine Aminotransferase 30 U/L (0-31); Albumin Level 4.2 g/dL (3.5-5.0); Alkaline Phosphatase 74 U/L (39-117); Anion Gap 12 (12-20); Aspartate Amino Transferase 23 U/L (5-31); Bilirubin Total 0.6 mg/dL (0.0-1.0); Blood Urea Nitrogen 13 mg/dL (9-16); Calcium 9.4 mg/dL (8.4-10.2); Carbon Dioxide 28 mmol/L (22-29); Chloride 106 mmol/L (96-108); Cholesterol 169 mg/dL; Estimated Glomerular Filt Rate > 60; Glucose Fasting 127 mg/dL (60-99); HDL Cholesterol 39 mg/dL; LDL Cholesterol Calculated 104 mg/dl; Potassium 4.1 mmol/L (3.3-5.1); Sodium 142 mmol/L (135-145); Total Protein 6.6 g/dL (6.5-8.0); Triglycerides 130 mg/dL
[2022-09-14 15:00] LABS: Creatinine Urine 60.75 mg/dL; Microalbum/Creatinine Ratio Ur 27.9 ug/mg cr
== END 2022-09-14 09:58 | disposition home or self-care (01) ==
LOC: HO.10HDL 09:57
PROVIDERS: Visit Provider Internal Medicine
DX: Z00.00 Encounter for general adult medical examination without abnormal findings (principal); E11.9 Type 2 diabetes mellitus without complications
CPT/HCPCS: 36415; 80053; 80061; 82043; 83036; 85025

== ENCOUNTER 2023-01-03 11:11 | Outpatient (REF) | payer MEDICARE, BC, OTHER, SELFPAY ==
--- NOTE | ~2023-01-03 | XR_ITS ---
EXAMINATION: XR SHOULDER, LEFT CLINICAL INFORMATION: Left shoulder pain COMPARISON: None available. TECHNIQUE: Left shoulder is imaged in 5 views. FINDINGS: No fracture or dislocation or destructive process. There are degenerative changes acromioclavicular joint. There is spurring from the lateral acromium and spurring from the greater tuberosity humeral head as well as the inferior medial humeral head. The glenohumeral joint appears normal. No visible rotator cuff calcifications. XR/XR shoulder LT min 2V IMPRESSION: -Degenerative changes acromioclavicular joint. -Spurring lateral acromium, greater tuberosity, and inferior medial humeral head. -No visible rotator cuff calcifications.
== END 2023-01-03 11:12 | disposition home or self-care (01) ==
LOC: HO.XRAY 11:11
PROVIDERS: PCP Internal Medicine; Visit Provider Internal Medicine
DX: M25.512 Pain in left shoulder (principal)
CPT/HCPCS: 73030

== ENCOUNTER → 2023-01-21 08:40 | Outpatient (BNVA) | payer MEDICARE, BC, OTHER, SELFPAY | PROVIDERS: PCP Internal Medicine; Referring Provider Internal Medicine; Visit Provider Internal Medicine | DX: I48.0 Paroxysmal atrial fibrillation (principal); I10 Essential (primary) hypertension; Z98.890 Other specified postprocedural states | CPT/HCPCS: 93005; 99212 ==

== ENCOUNTER → 2023-02-20 11:04 | Outpatient (BNVA) | payer MEDICARE, BC, OTHER, SELFPAY | PROVIDERS: PCP Internal Medicine; Visit Provider Psychiatry & Neurology Psychiatry | DX: F41.1 Generalized anxiety disorder (principal); F34.1 Dysthymic disorder | CPT/HCPCS: 90833; 99212 ==

== ENCOUNTER 2023-03-19 09:29 | Outpatient (REF) | payer MEDICARE, BC, OTHER, SELFPAY ==
[2023-03-19 11:04] LABS: Anion Gap 15 (12-20); Blood Urea Nitrogen 16 mg/dL (9-16); Calcium 9.8 mg/dL (8.4-10.2); Carbon Dioxide 26 mmol/L (22-29); Chloride 107 mmol/L (96-108); Estimated Glomerular Filt Rate > 60; Potassium 4.2 mmol/L (3.3-5.1); Sodium 144 mmol/L (135-145)
[2023-03-19 12:28] LABS: Total Protein Urine Random < 7 mg/dL (<12)
== END 2023-03-19 09:30 | disposition home or self-care (01) ==
LOC: HO.10HDL 09:29
PROVIDERS: Visit Provider Internal Medicine Nephrology
DX: I10 Essential (primary) hypertension (principal)
CPT/HCPCS: 36415; 80051; 82310; 82565; 84156; 84520

== ENCOUNTER 2023-05-22 11:41 | Outpatient (REF) | payer MEDICARE, BC, OTHER, SELFPAY ==
[2023-05-22 13:14] LABS: MANUAL DIFF FLAG NO
[2023-05-22 13:28] LABS: Basophils Absolute Auto 0.1 X10*3/uL (0.0-0.2); Basophils Percent Auto 0.5 % (0-2); Eosinophils Absolute Auto 0.3 X10*3/uL (0.0-0.4); Eosinophils Percent Auto 3.1 % (0-4); Hematocrit 42.9 % (37.0-47.0); Hemoglobin 13.5 g/dl (12.0-16.0); Imm Gran Abs Auto 0.07 X10*3/uL (0.00-0.03); Imm Gran Pct Auto 0.7 % (0.0-0.4); Lymphocytes Absolute Auto 2.9 X10*3/uL (1.2-4.9); Lymphocytes Percent Auto 28.9 % (20-40); Mean Corpuscular HGB Conc 31.5 g/dl (31.0-35.0); Mean Corpuscular Hemoglobin 28.4 pg (27.0-33.0); Mean Corpuscular Volume 90.1 fL (80.0-98.0); Mean Platelet Volume 10.1 fL (9.4-12.3); Monocytes Absolute Auto 0.8 X10*3/uL (0.1-1.2); Neutrophils Percent Auto 58.8 % (45-73); Platelet Count 255 X10*3/uL (160-400); Red Blood Count 4.76 X10*6/uL (4.20-5.50); Red Cell Distribution Width 13.9 % (11.0-16.0); White Blood Count 10.2 X10*3/uL (4.8-10.8)
[2023-05-22 14:16] LABS: Estimated Average Glucose 140 mg/dL; Hemoglobin A1c % 6.5 % (<6.0)
[2023-05-22 14:40] LABS: Creatinine Urine 90.23 mg/dL; Microalbum/Creatinine Ratio Ur 9.9 ug/mg cr (<30)
[2023-05-22 19:08] LABS: Alanine Aminotransferase 19 U/L (0-31); Albumin Level 4.2 g/dL (3.5-5.0); Alkaline Phosphatase 70 U/L (39-117); Anion Gap 12 (12-20); Aspartate Amino Transferase 18 U/L (5-31); Bilirubin Total 0.6 mg/dL (0.0-1.0); Blood Urea Nitrogen 11 mg/dL (9-16); Calcium 9.9 mg/dL (8.4-10.2); Carbon Dioxide 27 mmol/L (22-29); Chloride 106 mmol/L (96-108); Estimated Glomerular Filt Rate > 60; Glucose Random 102 mg/dL (60-115); Potassium 4.2 mmol/L (3.3-5.1); Sodium 141 mmol/L (135-145); Total Protein 7.5 g/dL (6.5-8.0)
== END 2023-05-22 11:42 | disposition home or self-care (01) ==
LOC: HO.10HDL 11:41
PROVIDERS: Visit Provider Internal Medicine
DX: I10 Essential (primary) hypertension (principal); R73.03 Prediabetes
CPT/HCPCS: 36415; 80053; 82043; 83036; 85025

== ENCOUNTER 2023-06-28 11:03 | Outpatient (AMB) | payer MEDICARE, BC, OTHER, SELFPAY ==
--- NOTE | 2023-06-28 11:46 | A.OFFPSYCH_ITS ---
Intake Intake Visit Reasons: depression Allergies nifedipine [NIFEDIPINE] Allergy (Unknown, Verified 01/21/23 08:46) UNKNOWN- DOES NOT REMEMBER Pt states no known allergy to Allergy (Unknown, Uncoded 01/21/23 08:46) n/a Medication List - Last Reconciled 06/28/23 by Laith Crum MD apixaban (Eliquis) 5 mg PO BID 90 days brimonidine 0.15% 1 drp ophthalmic (eye) BEDTIME bupropion HCl 100 mg PO DAILY carvedilol 12.5 mg See Protocol PO BID 90 days cholecalciferol (vitamin D3) 25 mcg PO BEDTIME clonazepam 0.5 mg PO DAILY PRN clonidine HCl 0.1 mg PO BID hydralazine 25 mg See Protocol PO TID 90 days latanoprost 0.005% 0 drps ophthalmic (eye) lisinopril 40 mg PO BEDTIME multivitamin 1 tab PO BEDTIME paroxetine HCl (Paxil) 40 mg PO DAILY simvastatin 20 mg PO BEDTIME spironolactone 25 mg PO DAILY HPI- Psychiatric Chief Complaint: depression HPI Narrative: The patient generally doing okay has some degree of ?chronic anxiety worry about her family mild degree of chronic dysthymia. The patient had gone off well future in at some point during COVID and had on her own at some point restarted over the past few months and states she is feeling better no complaints of side effects she denies seizures blackouts hypertension in control or other adverse effects from Wellbutrin patient continues chronically on Paxil occasional use of clonazepam Past Psychiatric History: History of panic disorder chronic dysthymia some of the anxiety difficulties started with prolactinoma and history of surgery Mental Status Exam Mental Status Exam Narrative: Mental Status Exam Narrative: Appearance: Casually dressed Behavior: Cooperative appropriate psychomotor: Within normal limits Speech: Normal volume and prosody Thought proccess logical and goal-directed Thought content: Future oriented no self-harming thoughts but focused on neg events in the family with her sister and feeling a general sense of despair regarding this state of country and how people treat each other Mood: dysphoria and anxiety Affect: Appropriate to mood full affect SI:denies HI:denies VH/AH:none Delusions: None Insight/judgment: Good insight and judgment Memory/cog: Intact Assessment and Plan Assessment & Plan (1) Generalized anxiety disorder: Status: Acute Code(s): F41.1 - Generalized anxiety disorder (2) Panic disorder: Status: Acute Code(s): F41.0 - Panic disorder [episodic paroxysmal anxiety] (3) Dysthymia: Status: Acute Code(s): F34.1 - Dysthymic disorder Plan Monitor blood pressure with Wellbutrin monitor for any adverse effects patient states she has more energy and has felt better with the combination of Paxil Wellbutrin. History of panic attacks generally control history of anxiety trying to manage issues related to disconnection the family issues of separation both the family a country feeling the intense anger people can have for each other and its impact on herself and her family at times no new acute medical problems noted patient states she has been stable with the limited Wellbutrin to 100 mg patient monitor for palpitations or increased blood pressure Medications: Refilled bupropion HCl 100 mg PO DAILY 90 tabs 1RF paroxetine HCl (Paxil) 40 mg PO DAILY 90 tabs 1RF Counseling and coordination of Care Medication management counseling: Effectiveness, Side effects and Dosing range Diagnosis and Prognosis Counseling: Impact of diagnosis on life functions and Adequacy of current interventions Details: I spent [38] minutes reviewing the record, seeing the patient and documenting in the medical record. Counseling provided to the patient/caregiver as outlined below. Addressed patient/caregiver concerns regarding current medication regime including effective adherence. Addressed patient/caregiver concerns regarding diagnosis and prognosis including accuracy of diagnosis, prognosis over time, impact of diagnosis. Addressed patient/caregiver concerns regarding impact of recent stressors. 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
== END 2023-06-28 11:35 | disposition home or self-care (01) ==
LOC: HO.HOP 11:03
PROVIDERS: PCP Internal Medicine; Visit Provider Psychiatry & Neurology Psychiatry
DX: F41.1 Generalized anxiety disorder (principal); F41.0 Panic disorder [episodic paroxysmal anxiety]; F34.1 Dysthymic disorder
CPT/HCPCS: 90833; 99213

== ENCOUNTER → 2023-06-28 11:03 | Outpatient (BNVA) | payer MEDICARE, BC, OTHER, SELFPAY | PROVIDERS: PCP Internal Medicine; Visit Provider Psychiatry & Neurology Psychiatry | DX: F34.1 Dysthymic disorder (principal); F41.0 Panic disorder [episodic paroxysmal anxiety]; F41.1 Generalized anxiety disorder | CPT/HCPCS: 90833; 99212 ==

== ENCOUNTER 2023-10-21 12:51 | Outpatient (REF) | payer MEDICARE, BC, OTHER, SELFPAY ==
[2023-10-21 14:00] LABS: Influenza A PCR NEGATIVE (Negative); Influenza B PCR NEGATIVE (Negative); Resp Syncy Virus RNA Qual PCR NEGATIVE (Negative); SARS COV2 PCR INHOUSE POSITIVE (Negative)
== END 2023-10-21 12:52 | disposition home or self-care (01) ==
LOC: HO.LNP 12:51
PROVIDERS: Visit Provider Internal Medicine
DX: Z11.52 Encounter for screening for COVID-19 (principal); Z20.822 Contact with and (suspected) exposure to COVID-19; R05.9 Cough, unspecified; R50.9 Fever, unspecified
CPT/HCPCS: 0241U

== ENCOUNTER 2023-10-25 13:53 | Outpatient (AMB) | payer MEDICARE, BC, OTHER, SELFPAY ==
--- NOTE | 2023-10-25 14:05 | HO.NEPHOV_ITS ---
HPI HPI Comments History of Present Illness Details I had the pleasure of seeing Josefina in follow-up of her hypertension. Couple days prior to this office visit, she was diagnosed with COVID but feeling better now. In the past she had COVID and had chest pain le ading to cardiac catheterization. She continues to have upper respiratory symptoms. She has not had any medication changes. She denies nausea, vomiting, diarrhea, shortness of breath, paroxysmal nocturnal dyspnea, orthopnea, pedal edema or urinary symptoms. Shee has not lost a little weight. She is compliant with her medications. She avoids nonsteroidal anti-inflammatories tries to minimize sodium in the diet. All other systems have been reviewed and were negative. [facility] Medical History (Updated 04/02/23 @ 18:31 by Laith Crum MD) Panic disorder Generalized anxiety disorder Dysthymia PAF (paroxysmal atrial fibrillation) New onset atrial fibrillation Prediabetes HTN (hypertension) Surgical History History of nasal surgery S/P cardiac cath History of hysterectomy Family History Mother Bladder cancer Social History Alcohol intake: never Comment: instructed to [facility] dc for assistance. Patient Tobacco Use Status: Former Tobacco user Advance Directives Date on File: 07/03/22 service: No Current occupational status: retired Vital Signs 10/25/23 14:06 Height 5 ft 6 in Weight 245 lb BMI 39.5 BP 160/90 H Blood Pressure Location Lt brachial Position Sitting Pulse 73 Pulse Source Pulse Oximeter Pulse Oximetry (%) 96 Oxygen Delivery Method Room Air Physical Exam Vital Signs: Last Vital Signs Pulse 73 10/25/23 14:06 BP 160/90 H 10/25/23 14:06 Pulse Ox 96 10/25/23 14:06 Oxygen Delivery Method Room Air 10/25/23 14:06 BMI result Body Mass Index 39.5 Const General: comfortable and no acute distress Orientation/consciousness: patient oriented x3 HEENT Head: Yes normocephalic Mouth: Normal oral and palatal mucosa present Eyes EOM: EOMs intact bilaterally Neck Neck: Yes supple Resp Auscultation: clear to auscultation bilaterally Cardio Jugular venous distension: no JVD Rate: regular rate GI Palpation (GI): Soft to palpation Auscultation: normal bowel sounds General: Yes no CVA tenderness Back/Spine/Pelvis Back: no CVA tenderness Skin General skin exam: no rashes or lesions noted Neuro General: patient oriented x3 and moves all extremities Extrem General: Yes no pedal edema Assessment & Plan Assessment & Plan (1) Essential hypertension: Code(s): I10 - Essential (primary) hypertension Plan: Josefina has longstanding hypertension. She is prediabetic. She has not lost any weight. She has not on any oral hypoglycemic agents. She has been having COVID for last couple of days with fluctuating blood pressures. When her blood pressure was checked in the office it was at goal. Her volume status is optimal. She has not known to have proteinuria but is known to have atherosclerotic cardiovascular disease. She is tolerating LINDY inhibitor well. Her blood pressure is at goal today, when I took it again. Her renal functions had been stable even though she has not had any recent lab work. She tries to maintain good hydration. She needs to lose some weight. She should maintain low-sodium diet, continued lifestyle modifications and avoidance of nonsteroidal anti-inflammatories. I did not make any medication changes. More than 50% time was spent discussing all these. Answered all questions. Follow-up given. Coding Level of Care Code Est Pt Level 4 (91332) Diagnoses Essential hypertension I10 Results Reviewed Nephrology Results: Hgb 13.5 g/dl (12.0-16.0) 05/22/23 WBC 10.2 X10*3/uL (4.8-10.8) 05/22/23 Plt Count 255 X10*3/uL (160-400) 05/22/23 Sodium 141 mmol/L (135-145) 05/22/23 Potassium 4.2 mmol/L (3.3-5.1) 05/22/23 Chloride 106 mmol/L (96-108) 05/22/23 Carbon Dioxide 27 mmol/L (22-29) 05/22/23 BUN 11 mg/dL (9-16) 05/22/23 Creatinine 0.71 mg/dL (0.5-1.4) 05/22/23 Calcium 9.9 mg/dL (8.4-10.2) 05/22/23 Urine Creatinine 90.23 mg/dL 05/22/23 Protein/Creatinin Ratio TNP 03/19/23
[2023-10-25 14:06] VITALS: BP 160/90; PULSE 73; O2SAT 96; BMI 39.5
== END 2023-10-25 14:47 | disposition home or self-care (01) ==
PROVIDERS: PCP Internal Medicine; Visit Provider Internal Medicine Nephrology
DX: I10 Essential (primary) hypertension (principal)
CPT/HCPCS: 99214

== ENCOUNTER → 2023-10-25 13:53 | Outpatient (BNVA) | payer MEDICARE, BC, OTHER, SELFPAY | PROVIDERS: PCP Internal Medicine; Visit Provider Internal Medicine Nephrology | DX: I10 Essential (primary) hypertension (principal) | CPT/HCPCS: 99212 ==

== ENCOUNTER 2023-11-26 11:45 | Outpatient (AMB) | payer MEDICARE, BC, OTHER, SELFPAY ==
--- NOTE | 2023-11-26 11:51 | HO.NEPHOV_ITS ---
HPI HPI Comments History of Present Illness Details I had the pleasure of seeing Josefina in follow-up of her hypertension. In the past she had COVID and had chest pain leading to cardiac catheterization. She has not had any medication changes. She denies nausea, vomiting, diarrhea, shortness of breath, paroxysmal nocturnal dyspnea, orthopnea, pedal edema or urinary symptoms. She has not lost a little weight. She is compliant with her medications. She avoids nonsteroidal anti- inflammatories tries to minimize sodium in the diet. All other systems have been reviewed and were negative. [facility] Medical History (Updated 04/02/23 @ 18:31 by Laith Crum MD) Panic disorder Generalized anxiety disorder Dysthymia PAF (paroxysmal atrial fibrillation) New onset atrial fibrillation Prediabetes HTN (hypertension) Surgical History History of nasal surgery S/P cardiac cath History of hysterectomy Family History Mother Bladder cancer Social History Alcohol intake: never Comment: instructed to [facility] dc for assistance. Patient Tobacco Use Status: Former Tobacco user Advance Directives Date on File: 07/03/22 service: No Current occupational status: retired Vital Signs 11/26/23 11:56 Height 5 ft 6 in Weight 246 lb 8 oz BMI 39.8 BP 120/70 Blood Pressure Location Lt brachial Position Sitting Pulse 76 Pulse Source Pulse Oximeter Physical Exam Vital Signs: Last Vital Signs Pulse 76 11/26/23 11:56 BP 120/70 11/26/23 11:56 BMI result Body Mass Index 39.8 Const General: comfortable and no acute distress Orientation/consciousness: patient oriented x3 HEENT Head: Yes normocephalic Mouth: Normal oral and palatal mucosa present Eyes EOM: EOMs intact bilaterally Neck Neck: Yes supple Resp Auscultation: clear to auscultation bilaterally Cardio Jugular venous distension: no JVD Rate: regular rate GI Palpation (GI): Soft to palpation Auscultation: normal bowel sounds General: Yes no CVA tenderness Back/Spine/Pelvis Back: no CVA tenderness Skin General skin exam: no rashes or lesions noted Neuro General: patient oriented x3 and moves all extremities Extrem General: Yes no pedal edema Assessment & Plan Assessment & Plan (1) Essential hypertension: Code(s): I10 - Essential (primary) hypertension Plan: Josefina has longstanding hypertension. She is prediabetic. She has not lost any weight. She has not on any oral hypoglycemic agents. When her blood pressure was checked in the office it was at goal. Her volume status is optimal. She has not known to have proteinuria but is known to have atherosclerotic cardiovascular disease. She is tolerating LINDY inhibitor well. Her blood pressure is at goal today, when I took it again. Her renal functions had been stable . She tries to maintain good hydration. She needs to lose some weight. She should maintain low-sodium diet, continued lifestyle modifications and avoidance of nonsteroidal anti-inflammatories. I did not make any medication changes. More than 50% time was spent discussing all these. Answered all questions. Follow-up given Coding Level of Care Code Est Pt Level 3 (97114) Diagnoses Essential hypertension I10 Results Reviewed Nephrology Results: Hgb 13.5 g/dl (12.0-16.0) 05/22/23 WBC 10.2 X10*3/uL (4.8-10.8) 05/22/23 Plt Count 255 X10*3/uL (160-400) 05/22/23 Sodium 141 mmol/L (135-145) 05/22/23 Potassium 4.2 mmol/L (3.3-5.1) 05/22/23 Chloride 106 mmol/L (96-108) 05/22/23 Carbon Dioxide 27 mmol/L (22-29) 05/22/23 BUN 11 mg/dL (9-16) 05/22/23 Creatinine 0.71 mg/dL (0.5-1.4) 05/22/23 Calcium 9.9 mg/dL (8.4-10.2) 05/22/23 Urine Creatinine 90.23 mg/dL 05/22/23 Protein/Creatinin Ratio TNP 03/19/23
[2023-11-26 11:56] VITALS: BP 120/70; PULSE 76; BMI 39.8
== END 2023-11-26 13:16 | disposition home or self-care (01) ==
PROVIDERS: PCP Internal Medicine; Visit Provider Internal Medicine Nephrology
DX: I10 Essential (primary) hypertension (principal)
CPT/HCPCS: 99213

== ENCOUNTER → 2023-11-26 11:45 | Outpatient (BNVA) | payer MEDICARE, BC, OTHER, SELFPAY | PROVIDERS: PCP Internal Medicine; Visit Provider Internal Medicine Nephrology | DX: I10 Essential (primary) hypertension (principal) | CPT/HCPCS: 99212 ==

== ENCOUNTER 2023-12-10 12:00 | Outpatient (REF) | payer MEDICARE, BC, OTHER, SELFPAY ==
--- NOTE | ~2023-12-10 | XR_ITS ---
EXAMINATION: XR CHEST CLINICAL INFORMATION: Cough COMPARISON: PA chest 03/21/2022 TECHNIQUE: 2 views of the chest were obtained. FINDINGS: The lungs are well expanded. There is slight patchy opacity at the medial right lung base consistent with atelectasis and/or pneumonia. No gross pleural effusion. No significant abnormality is noted involving the heart, mediastinum, bony thorax or soft tissues. XR/XR chest 2V IMPRESSION: Right lower lobe atelectasis and/or pneumonia.
[2023-12-10 13:22] LABS: MANUAL DIFF FLAG NO
[2023-12-10 13:28] LABS: Basophils Percent Auto 0.4 % (0-2); Eosinophils Absolute Auto 0.3 X10*3/uL (0.0-0.4); Eosinophils Percent Auto 2.8 % (0-4); Hematocrit 42.1 % (37.0-47.0); Hemoglobin 13.5 g/dl (12.0-16.0); Imm Gran Abs Auto 0.06 X10*3/uL (0.00-0.03); Imm Gran Pct Auto 0.7 % (0.0-0.4); Lymphocytes Absolute Auto 2.4 X10*3/uL (1.2-4.9); Lymphocytes Percent Auto 26.4 % (20-40); Mean Corpuscular HGB Conc 32.1 g/dl (31.0-35.0); Mean Corpuscular Hemoglobin 28.5 pg (27.0-33.0); Mean Platelet Volume 9.5 fL (9.4-12.3); Monocytes Absolute Auto 0.7 X10*3/uL (0.1-1.2); Monocytes Percent Auto 7.2 % (2-11); Neutrophils Absolute Auto 5.7 x10*3/uL (2.0-8.3); Neutrophils Percent Auto 62.5 % (45-73); Platelet Count 269 X10*3/uL (160-400); Red Blood Count 4.73 X10*6/uL (4.20-5.50); Red Cell Distribution Width 13.9 % (11.0-16.0); White Blood Count 9.1 X10*3/uL (4.8-10.8)
[2023-12-10 13:52] LABS: Alanine Aminotransferase 29 U/L (0-31); Albumin Level 4.1 g/dL (3.5-5.0); Alkaline Phosphatase 71 U/L (39-117); Anion Gap 11 (12-20); Aspartate Amino Transferase 24 U/L (5-31); Bilirubin Total 0.4 mg/dL (0.0-1.0); Blood Urea Nitrogen 12 mg/dL (9-16); Calcium 9.4 mg/dL (8.4-10.2); Carbon Dioxide 29 mmol/L (22-29); Chloride 108 mmol/L (96-108); Estimated Glomerular Filt Rate > 60; Glucose Random 141 mg/dL (60-115); Potassium 4.2 mmol/L (3.3-5.1); Sodium 144 mmol/L (135-145); Total Protein 7.2 g/dL (6.5-8.0)
[2023-12-10 14:03] LABS: Estimated Average Glucose 163 mg/dL; Hemoglobin A1c % 7.3 % (<6.0)
[2023-12-10 14:15] LABS: Creatinine Urine 141.33 mg/dL; Microalbum/Creatinine Ratio Ur 25.4 ug/mg cr (<30)
== END 2023-12-10 12:01 | disposition home or self-care (01) ==
LOC: HO.10HDL 12:00
PROVIDERS: PCP Internal Medicine; Visit Provider Internal Medicine
DX: E11.9 Type 2 diabetes mellitus without complications (principal); I10 Essential (primary) hypertension; R05.9 Cough, unspecified; I48.0 Paroxysmal atrial fibrillation
CPT/HCPCS: 36415; 71046; 80053; 82043; 82570; 83036; 85025

== ENCOUNTER 2024-01-20 08:59 | Outpatient (AMB) | payer MEDICARE, BC, OTHER, SELFPAY ==
[2024-01-20 09:11] VITALS: BP 158/72; PULSE 71; O2SAT 96; BMI 39.8
--- NOTE | 2024-01-20 09:11 | MHC.OFFVIS ---
Vital Signs 01/20/24 09:11 Height 5 ft 6 in Weight 246 lb 14.684 oz BMI 39.8 BP 158/72 H Blood Pressure Location Lt brachial Position Sitting Pulse 71 Pulse Source Monitor Pulse Oximetry (%) 96 Oxygen Delivery Method Room Air Intake Visit Reasons: 1 year follow up Allergies nifedipine [NIFEDIPINE] Allergy (Unknown, Verified 11/26/23 12:00) UNKNOWN- DOES NOT REMEMBER Pt states no known allergy to Allergy (Unknown, Uncoded 01/21/23 08:46) n/a Medication List - Last Reconciled 01/20/24 by Rubin Morel MD apixaban (Eliquis) 5 mg PO BID brimonidine 0.15% 1 drp ophthalmic (eye) BEDTIME bupropion HCl SR 100 mg PO DAILY carvedilol 12.5 mg PO BID cholecalciferol (vitamin D3) 25 mcg PO BEDTIME clonazepam 0.5 mg PO DAILY PRN clonidine HCl 0.1 mg PO BID hydralazine 25 mg PO TID latanoprost 0.005% 0 drps ophthalmic (eye) lisinopril 40 mg PO BEDTIME multivitamin 1 tab PO BEDTIME paroxetine HCl (Paxil) 40 mg PO DAILY simvastatin 20 mg PO BEDTIME spironolactone 25 mg PO DAILY HPI Comments Details: Josefina returns for follow-up regarding various cardiac concerns. To recall, she was admitted for COVID infection. At that time, she also had atrial fibrillation. She was commenced on Eliquis. Her blood pressures were quite high and changes made including changing atenolol to carvedilol and addition of hydralazine. Overall, she is just about the same as before. Shortness of breath is chronic and unchanged. Lot of anxiety at baseline and that is not any different. Blood pressure is still high today but apparently was normal at Nephrology office. [facility] Medical History (Updated 01/20/24 @ 09:36 by Rubin Morel MD) CELIA on CPAP Diastolic dysfunction Panic disorder Generalized anxiety disorder Dysthymia PAF (paroxysmal atrial fibrillation) New onset atrial fibrillation Prediabetes HTN (hypertension) Surgical History History of nasal surgery S/P cardiac cath History of hysterectomy Family History Mother Bladder cancer Social History Alcohol intake: never Comment: instructed to ring dc for assistance. Patient Tobacco Use Status: Former Tobacco user Advance Directives Date on File: 07/03/22 service: No Current occupational status: retired Review of Systems Const Denies weakness ENT Denies dizziness Card Denies chest pain, Denies chest pain with activity, Denies syncope, Denies rapid heart rate, Denies pedal edema, Denies edema, Denies leg edema, Denies lightheadedness, Denies palpitations, Denies dyspnea, Denies dyspnea on exertion and Denies orthopnea Resp Denies cough, Denies dyspnea and Denies dyspnea on exertion GI Denies hematochezia and Denies change in stool character Musc Denies abnormal gait, Denies muscle cramps, Denies muscle weakness, Denies numbness, Denies radiating pain into limb and Denies tingling Neuro Denies abnormal gait, Denies dizziness, Denies syncope, Denies numbness, Denies tingling and Denies weakness Endo Denies palpitations Physical Exam Vital Signs: Last Vital Signs Pulse 71 01/20/24 09:11 BP 158/72 H 01/20/24 09:11 Pulse Ox 96 01/20/24 09:11 Oxygen Delivery Method Room Air 01/20/24 09:11 BMI result Body Mass Index 39.8 Const General: comfortable and no acute distress Orientation/consciousness: patient oriented x3 HEENT Other: Unremarkable Head: Yes normal to inspection Neck Neck: Yes normal visual inspection Chest Chest palpation & inspection: normal inspection of the chest Resp Auscultation: clear to auscultation bilaterally Cardio Palpation: normal PMI Heart sounds: S1 normal heart sound present, S2 normal heart sound present, no gallops, no murmurs and no rubs GI Palpation (GI): Soft to palpation Back/Spine/Pelvis Other: unremarkable Skin General skin exam: no rashes or lesions noted Neuro General: patient oriented x3 Extrem General: Yes normal to inspection Psych Mental Status: mental status grossly normal Office Procedures EKG Details: EKG with sinus rhythm at 71/Min; MT prolongation to 258 millisecond; [place]. [id number], Complete Assessment & Plan Assessment & Plan (1) PAF (paroxysmal atrial fibrillation): Code(s): I48.0 - Paroxysmal atrial fibrillation Category: Medical Plan: Continue carvedilol. Continue Eliquis. (2) Essential hypertension: Code(s): I10 - Essential (primary) hypertension Category: Medical Plan: Not clear how much anxiety plays a role. Current regimen includes a combination of carvedilol, lisinopril, hydralazine, clonidine, spironolactone. Will request Nephrology to perform 24 hour blood pressure monitoring. (3) S/P cardiac cath: Code(s): Z98.890 - Other specified postprocedural states Category: Surgical Plan: EKG during hospitalization had T inversions anteriorly. Myocardial perfusion imaging with ischemia in the distal anterior wall. However, cardiac catheterization shows normal coronary arteries. No further workup. Reassurance only. (4) Diastolic dysfunction: Code(s): I51.89 - Other ill-defined heart diseases Category: Medical Plan: Prior echocardiogram with moderate diastolic dysfunction. Suspect all related to chronic hypertension. Again mainly blood pressure management. (5) First degree heart block: Code(s): I44.0 - Atrioventricular block, first degree Category: Medical Plan: First-degree heart block on the EKG. She needs a beta-blockers for blood pressure management. However, may not be able to increase does too much.
== END 2024-01-20 09:34 | disposition home or self-care (01) ==
PROVIDERS: Visit Provider Internal Medicine
DX: I48.0 Paroxysmal atrial fibrillation (principal); I10 Essential (primary) hypertension; Z98.890 Other specified postprocedural states; I51.89 Other ill-defined heart diseases; I44.0 Atrioventricular block, first degree
CPT/HCPCS: 93010; 99214

== ENCOUNTER → 2024-01-20 08:59 | Outpatient (BNVA) | payer MEDICARE, BC, OTHER, SELFPAY | PROVIDERS: Visit Provider Internal Medicine | DX: I48.0 Paroxysmal atrial fibrillation (principal); I10 Essential (primary) hypertension; I44.0 Atrioventricular block, first degree; I51.89 Other ill-defined heart diseases; Z98.890 Other specified postprocedural states | CPT/HCPCS: 93005; 99212 ==

== ENCOUNTER 2024-01-22 13:30 | Outpatient (AMB) | payer MEDICARE, BC, OTHER, SELFPAY ==
--- NOTE | 2024-01-22 14:05 | MHC.OFFVISPS ---
Intake Intake Visit Reasons: depression Allergies nifedipine [NIFEDIPINE] Allergy (Unknown, Verified 11/26/23 12:00) UNKNOWN- DOES NOT REMEMBER Pt states no known allergy to Allergy (Unknown, Uncoded 01/21/23 08:46) n/a Medication List - Last Reconciled 01/22/24 by Laith Crum MD apixaban (Eliquis) 5 mg PO BID brimonidine 0.15% 1 drp ophthalmic (eye) BEDTIME bupropion HCl SR 100 mg PO DAILY carvedilol 12.5 mg PO BID cholecalciferol (vitamin D3) 25 mcg PO BEDTIME clonazepam 0.5 mg PO DAILY PRN clonidine HCl 0.1 mg PO BID hydralazine 25 mg PO TID latanoprost 0.005% 0 drps ophthalmic (eye) lisinopril 40 mg PO BEDTIME multivitamin 1 tab PO BEDTIME paroxetine HCl (Paxil) 40 mg PO DAILY simvastatin 20 mg PO BEDTIME spironolactone 25 mg PO DAILY HPI- Psychiatric Chief Complaint: depression HPI Narrative: Patient seen in psychiatric follow-up patient has some degree of chronic anxiety about world situation her who was recently injured patient continues on Paxil Wellbutrin she does have some degree erratic blood pressure history of atrial fibrillation intermittently uses clonazepam 0.5 mg Past Psychiatric History: History of panic disorder chronic dysthymia some of the anxiety difficulties started with prolactinoma and history of surgery Mental Status Exam Mental Status Exam Narrative: Mental Status Exam Narrative: Appearance: Casually dressed Behavior: Cooperative appropriate psychomotor: Within normal limits Speech: Normal volume and prosody Thought proccess logical and goal-directed Thought content: Future oriented focused on neg events more worried Mood: anxiety Affect: Appropriate to mood full affect SI:denies HI:denies VH/AH:none Delusions: None Insight/judgment: Good insight and judgment Memory/cog: Intact Assessment and Plan Assessment & Plan (1) Generalized anxiety disorder: Status: Acute Code(s): F41.1 - Generalized anxiety disorder (2) Dysthymia: Status: Acute Code(s): F34.1 - Dysthymic disorder (3) First degree heart block: Status: Acute Code(s): I44.0 - Atrioventricular block, first degree (4) Diastolic dysfunction: Status: Acute Code(s): I51.89 - Other ill-defined heart diseases Plan Encouraged daily walking belly breathing different strategies for managing feeling states. Avoiding over dependence on media. Discussed trying to change from clonazepam to a shorter acting benzodiazepine as needed however patient has great deal of difficulty changing sets occasional use of clonazepam we did discuss long-term risks including dependency which is currently not present in association with possibility of memory disorders Medications: Refilled bupropion HCl SR 100 mg PO DAILY 90 tabs 1RF clonazepam 0.5 mg PO DAILY PRN 30 tabs 2RF Anxiety Counseling and coordination of Care Details: I spent [] minutes reviewing the record, seeing the patient and documenting in the medical record. Counseling provided to the patient/caregiver as outlined below. Addressed patient/caregiver concerns regarding current medication regime including effective adherence. Addressed patient/caregiver concerns regarding diagnosis and prognosis including accuracy of diagnosis, prognosis over time, impact of diagnosis. Addressed patient/caregiver concerns regarding impact of recent stressors. [facility] Medical History (Updated 01/20/24 @ 09:36 by Rubin Morel MD) CELIA on CPAP Diastolic dysfunction Panic disorder Generalized anxiety disorder Dysthymia PAF (paroxysmal atrial fibrillation) New onset atrial fibrillation Prediabetes HTN (hypertension) Surgical History History of nasal surgery S/P cardiac cath History of hysterectomy Family History Mother Bladder cancer Social History Alcohol intake: never Comment: instructed to ring dc for assistance. 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
== END 2024-01-22 17:06 | disposition home or self-care (01) ==
LOC: HO.HOP 13:30
PROVIDERS: PCP Internal Medicine; Visit Provider Psychiatry & Neurology Psychiatry
DX: F41.1 Generalized anxiety disorder (principal); F34.1 Dysthymic disorder; I44.0 Atrioventricular block, first degree; I51.89 Other ill-defined heart diseases
CPT/HCPCS: 90833; 99213

== ENCOUNTER → 2024-01-22 13:30 | Outpatient (BNVA) | payer MEDICARE, BC, OTHER, SELFPAY | PROVIDERS: PCP Internal Medicine; Visit Provider Psychiatry & Neurology Psychiatry | DX: F41.1 Generalized anxiety disorder (principal); F34.1 Dysthymic disorder; I44.0 Atrioventricular block, first degree; I51.89 Other ill-defined heart diseases | CPT/HCPCS: 99212 ==

== ENCOUNTER → 2024-02-12 08:58 | Outpatient (BNVA) | payer MEDICARE, BC, OTHER, SELFPAY | PROVIDERS: PCP Internal Medicine; Visit Provider Internal Medicine Nephrology ==

== ENCOUNTER 2024-02-13 09:22 | Outpatient (AMB) | payer MEDICARE, BC, OTHER, SELFPAY ==
--- NOTE | 2024-02-13 10:09 | HO.NEPHOV ---
Intake Visit Reasons: BP Inter Allergies nifedipine [NIFEDIPINE] Allergy (Unknown, Verified 11/26/23 12:00) UNKNOWN- DOES NOT REMEMBER Pt states no known allergy to Allergy (Unknown, Uncoded 01/21/23 08:46) n/a [facility] Medical History (Updated 01/20/24 @ 09:36 by Rubin Morel MD) CELIA on CPAP Diastolic dysfunction Panic disorder Generalized anxiety disorder Dysthymia PAF (paroxysmal atrial fibrillation) New onset atrial fibrillation Prediabetes HTN (hypertension) Surgical History History of nasal surgery S/P cardiac cath History of hysterectomy Family History Mother Bladder cancer Social History Alcohol intake: never Comment: instructed to ring dc for assistance. Patient Tobacco Use Status: Former Tobacco user Advance Directives Date on File: 07/03/22 service: No Current occupational status: retired Office Procedures 24 B/P Monitor Interpretation Details: Overall average 148/83 mm of Hg Daytime average 153/86 mm of Hg Night time average 133/74 Needs medication adjustment for optimal BP control Procedure code (CPT) selection complete Results Reviewed Nephrology Results: Hgb 13.5 g/dl (12.0-16.0) 12/10/23 WBC 9.1 X10*3/uL (4.8-10.8) 12/10/23 Plt Count 269 X10*3/uL (160-400) 12/10/23 Sodium 144 mmol/L (135-145) 12/10/23 Potassium 4.2 mmol/L (3.3-5.1) 12/10/23 Chloride 108 mmol/L (96-108) 12/10/23 Carbon Dioxide 29 mmol/L (22-29) 12/10/23 BUN 12 mg/dL (9-16) 12/10/23 Creatinine 0.75 mg/dL (0.5-1.4) 12/10/23 Calcium 9.4 mg/dL (8.4-10.2) 12/10/23 Urine Creatinine 141.33 mg/dL 12/10/23 Assessment & Plan Assessment & Plan (1) Essential hypertension: Code(s): I10 - Essential (primary) hypertension Category: Medical Plan Needs more medications to keep BP at goal Orders: Orders AMB 24HR B/P Monitor INTERPRETATION Today I10 - Essential (primary) hypertension Coding Level of Care Code Procedure Only Diagnoses Essential hypertension I10
== END 2024-02-13 09:22 | disposition home or self-care (01) ==
LOC: HO.HKA 09:22
PROVIDERS: PCP Internal Medicine; Referring Provider Internal Medicine; Visit Provider Internal Medicine Nephrology
DX: I10 Essential (primary) hypertension (principal)
CPT/HCPCS: 93790

== ENCOUNTER → 2024-02-13 09:22 | Outpatient (BNVA) | payer MEDICARE, BC, OTHER, SELFPAY | PROVIDERS: PCP Internal Medicine; Visit Provider Internal Medicine Nephrology ==

== ENCOUNTER 2024-03-09 15:33 | Outpatient (REF) | payer MEDICARE, BC, OTHER, SELFPAY ==
[2024-03-09 17:49] LABS: Appearance Urine Clear; Color Urine Yellow; Glucose Urine UA Negative (Negative); Leukocyte Esterase Urine Negative (Negative); Nitrite Urine Negative (Negative); PH 6.5 (5.0-9.0); UMIC TRIGGER UA YES; Urine Blood Large (3+) (Negative); Urine Ketones Negative (Negative); Urine Protein Negative (Neg-Trace)
[2024-03-09 17:52] LABS: Bacteria Urine None Seen (None Seen); Hyaline Casts Urine 0-2 /LPF (0-2); RBC Urine >20 /HPF (0-2); Squamous Epithelial Cell Urine 0-2 /HPF (0-2); WBC Urine 0-5 /HPF (0-5)
== END 2024-03-09 15:34 | disposition home or self-care (01) ==
LOC: HO.LAB 15:33
PROVIDERS: PCP Internal Medicine; Visit Provider Internal Medicine
DX: R31.9 Hematuria, unspecified (principal)
CPT/HCPCS: 81001; 87086

== ENCOUNTER 2024-03-23 11:14 | Outpatient (REF) | payer MEDICARE, BC, OTHER, SELFPAY ==
--- NOTE | ~2024-03-23 | US_ITS ---
EXAMINATION: US RETROPERITONEAL COMPLETE (RENAL) CLINICAL INFORMATION: Hematuria. COMPARISON: Ultrasound abdomen 10/24/2012 and 03/19/2011. TECHNIQUE: Real-time imaging of the kidneys and bladder. Limited visualization due to bowel gas. FINDINGS: RIGHT KIDNEY: 11.2 x 5.0 x 6.1 cm (SAG x AP x TRV). A 1.4 cm mid pole calculus. No hydronephrosis. Renal cortical thickness is normal. Limited visualization. LEFT KIDNEY: A 0.4 cm and 0.3 cm mid pole calculi. No hydronephrosis. Renal cortical thickness is normal. Limited visualization. (SAG x AP x TRV). BLADDER: Partially distended. Per wall steamer, per patient, she is unable to full bladder, understood the exam would be limited. Bilateral ureteral jets are not demonstrated. Prevoid bladder volume is 44.3 mL. Postvoid bladder volume is Postvoid bladder volume was not obtained as bladder was no longer visualized. US/US retroperitoneal comp IMPRESSION: Bilateral nephrolithiasis, largest calculus 1.4 cm right kidney. No hydronephrosis.
[2024-03-23 13:35] LABS: Anion Gap 10 (12-20); Blood Urea Nitrogen 16 mg/dL (9-16); Calcium 9.9 mg/dL (8.4-10.2); Carbon Dioxide 30 mmol/L (22-29); Chloride 106 mmol/L (96-108); Estimated Glomerular Filt Rate > 60; Sodium 142 mmol/L (135-145)
[2024-03-23 14:42] LABS: Creatinine Urine 70.86 mg/dL; Total Protein Urine Random < 7 mg/dL (<12)
== END 2024-03-23 11:15 | disposition home or self-care (01) ==
LOC: HO.US 11:14
PROVIDERS: Internal Medicine Nephrology; PCP Internal Medicine; Visit Provider Internal Medicine
DX: I10 Essential (primary) hypertension (principal); R31.9 Hematuria, unspecified
CPT/HCPCS: 36415; 76770; 80051; 82310; 82565; 82570; 84156; 84520

== ENCOUNTER 2024-03-26 14:58 | Outpatient (AMB) | payer MEDICARE, BC, OTHER, SELFPAY ==
--- NOTE | 2024-03-26 15:02 | HO.NEPHOV_ITS ---
Vital Signs 03/26/24 15:03 Height 5 ft 6 in Weight 247 lb BMI 39.9 BP 130/90 H Blood Pressure Location Lt brachial Position Sitting Pulse 80 Pulse Source Pulse Oximeter Pulse Oximetry (%) 94 Oxygen Delivery Method Room Air Intake Visit Reasons: 4 mon follow up/ LVM Sammying Machine Operator Required: No Accompanied by: Self / Same As Patient Allergies nifedipine [NIFEDIPINE] Allergy (Unknown, Verified 03/26/24 15:06) UNKNOWN- DOES NOT REMEMBER Pt states no known allergy to Allergy (Unknown, Uncoded 01/21/23 08:46) n/a HPI Comments Details: I had the pleasure of seeing Josefina in follow-up of her hypertension. In the past she had COVID and had chest pain leading to cardiac catheterization. She has not had any medication changes. Her blood pressure has been running high. She underwent 24 hour ambulatory blood pressure monitor which showed sub optimal blood pressure control. She has been prescribed hydralazine 25 mg 3 times a day but was taking only twice a day. She also had an episode of tanna hematuria. She had renal imaging the results of which were unavailable at the time of this office visit. She send her urine culture which was negative. She has family history of bladder cancer. She denies nausea, vomiting, diarrhea, shortness of breath, paroxysmal nocturnal dyspnea, orthopnea, pedal edema or urinary symptoms. She has not lost a little weight. She is compliant with her medications. She avoids nonsteroidal anti-inflammatories tries to minimize s odium in the diet. All other systems have been reviewed and were negative. [facility] Medical History (Updated 03/27/24 @ 10:59 by Sawyer Robison MD) CELIA on CPAP Diastolic dysfunction Panic disorder Generalized anxiety disorder Dysthymia PAF (paroxysmal atrial fibrillation) New onset atrial fibrillation Prediabetes HTN (hypertension) Surgical History History of nasal surgery S/P cardiac cath History of hysterectomy Family History Mother Bladder cancer Social History Alcohol intake: never Comment: instructed to ring dc for assistance. Patient Tobacco Use Status: Former Tobacco user Advance Directives Date on File: 07/03/22 service: No Current occupational status: retired Physical Exam Vital Signs: Last Vital Signs Pulse 80 03/26/24 15:03 BP 130/90 H 03/26/24 15:03 Pulse Ox 94 03/26/24 15:03 Oxygen Delivery Method Room Air 03/26/24 15:03 BMI result Body Mass Index 39.9 Const General: comfortable and no acute distress Orientation/consciousness: patient oriented x3 HEENT Head: Yes normocephalic Mouth: Normal oral and palatal mucosa present Eyes EOM: EOMs intact bilaterally Neck Neck: Yes supple Resp Auscultation: clear to auscultation bilaterally Cardio Jugular venous distension: no JVD Rate: regular rate GI Palpation (GI): Soft to palpation Auscultation: normal bowel sounds General: Yes no CVA tenderness Back/Spine/Pelvis Back: no CVA tenderness Skin General skin exam: no rashes or lesions noted Neuro General: patient oriented x3 and moves all extremities Extrem General: Yes no pedal edema Results Reviewed Nephrology Results: Hgb 13.5 g/dl (12.0-16.0) 12/10/23 WBC 9.1 X10*3/uL (4.8-10.8) 12/10/23 Plt Count 269 X10*3/uL (160-400) 12/10/23 Sodium 142 mmol/L (135-145) 03/23/24 Potassium 4.0 mmol/L (3.3-5.1) 03/23/24 Chloride 106 mmol/L (96-108) 03/23/24 Carbon Dioxide 30 mmol/L (22-29) H 03/23/24 BUN 16 mg/dL (9-16) 03/23/24 Creatinine 0.75 mg/dL (0.5-1.4) 03/23/24 Calcium 9.9 mg/dL (8.4-10.2) 03/23/24 Urine Protein Negative mg/dL (Neg-Trace) 03/09/24 Urine Creatinine 70.86 mg/dL 03/23/24 Protein/Creatinin Ratio TNP 03/23/24 Assessment & Plan Assessment & Plan (1) Diastolic dysfunction: Code(s): I51.89 - Other ill-defined heart diseases Category: Medical (2) Essential hypertension: Code(s): I10 - Essential (primary) hypertension Category: Medical (3) Hematuria: Code(s): R31.9 - Hematuria, unspecified Category: Medical Qualifiers: Hematuria type: gross Qualified Code(s): R31.0 - Gross hematuria Reji Rocha has longstanding hypertension. She is prediabetic. She has not lost any weight. She has not on any oral hypoglycemic agents. Her blood pressure has been suboptimally controlled. She had a 24 hour ambulatory blood pressure monitor which showed uncontrolled blood pressure. She has history of diastolic dysfunction. She was meant to take hydralazine 3 times a day but had been taking only twice. I increase the dose of 3 times a day. She is going to follow-up with me in a few weeks.She also had an episode of tanna hematuria. She had renal imaging the results of which were unavailable at the time of this office visit. She send her urine culture which was negative. She has family history of bladder cancer. She needs a cystoscopy. I took the liberty to do a urology referral. Her volume status is optimal. She has not known to have proteinuria but is known to have atherosclerotic cardiovascular disease. She is tolerating LINDY inhibitor well. Her renal functions had been stable . She tries to maintain good hydration. She needs to lose some weight. She should maintain low-sodium diet, continued lifestyle modifications and avoidance of nonsteroidal anti-inflammatories. I did not make any medication changes. More than 50% time was spent discussing all these. Answered all questions. Follow- up given Orders: Referrals Urology Referral R31.0 - Gross hematuria Coding Level of Care Code Est Pt Level 4 (22503) Diagnoses Diastolic dysfunction I51.89 Essential hypertension I10 Gross hematuria R31.0 Hematuria type: gross
[2024-03-26 15:03] VITALS: BP 130/90; PULSE 80; O2SAT 94; BMI 39.9
== END 2024-03-26 15:49 | disposition home or self-care (01) ==
PROVIDERS: PCP Internal Medicine; Visit Provider Internal Medicine Nephrology
DX: I51.89 Other ill-defined heart diseases (principal); I10 Essential (primary) hypertension; R31.0 Gross hematuria
CPT/HCPCS: 99214

== ENCOUNTER → 2024-03-26 14:58 | Outpatient (BNVA) | payer MEDICARE, BC, OTHER, SELFPAY | PROVIDERS: PCP Internal Medicine; Visit Provider Internal Medicine Nephrology | DX: I10 Essential (primary) hypertension (principal); I51.89 Other ill-defined heart diseases; R31.0 Gross hematuria | CPT/HCPCS: 99212 ==

== ENCOUNTER 2024-04-17 09:30 | Outpatient (AMB) | payer MEDICARE, BC, OTHER, SELFPAY ==
--- NOTE | 2024-04-17 09:30 | HO.NEPHOV_ITS ---
Vital Signs 04/17/24 09:31 Height 5 ft 6 in Weight 246 lb BMI 39.7 BP 140/80 H Blood Pressure Location Lt brachial Position Sitting Pulse 73 Pulse Source Pulse Oximeter Pulse Oximetry (%) 92 Oxygen Delivery Method Room Air Intake Visit Reasons: follow-up/ Conf Computer Repairer Required: No Accompanied by: Self / Same As Patient Allergies nifedipine [NIFEDIPINE] Allergy (Unknown, Verified 04/17/24 09:33) UNKNOWN- DOES NOT REMEMBER Pt states no known allergy to Allergy (Unknown, Uncoded 01/21/23 08:46) n/a HPI Comments Details: I had the pleasure of seeing Josefina in follow-up of her hypertension. In the past she had COVID and had chest pain leading to cardiac catheterization. She has not had any medication changes. Her blood pressure has been running high. She underwent 24 hour ambulatory blood pressure monitor which showed sub optimal blood pressure control. She has been prescribed hydralazine 25 mg 3 times a day but was taking only twice a day. She also had an episode of tanna hematuria. She had renal imaging the results of which were unavailable at the time of this office visit. She send her urine culture which was negative. She has family history of bladder cancer. She denies nausea, vomiting, diarrhea, shortness of breath, paroxysmal nocturnal dyspnea, orthopnea, pedal edema or urinary symptoms. She has not lost a little weight. She is compliant with her medications. She avoids nonsteroidal anti-inflammatories tries to minimize sodium in the diet. All other systems have been reviewed and were negative. [facility] Medical History (Updated 03/27/24 @ 10:59 by Sawyer Robison MD) CELIA on CPAP Diastolic dysfunction Panic disorder Generalized anxiety disorder Dysthymia PAF (paroxysmal atrial fibrillation) New onset atrial fibrillation Prediabetes HTN (hypertension) Surgical History History of nasal surgery S/P cardiac cath History of hysterectomy Family History Mother Bladder cancer Social History Alcohol intake: never Comment: instructed to ring dc for assistance. Patient Tobacco Use Status: Former Tobacco user Advance Directives Date on File: 10/04/22 service: No Current occupational status: retired Physical Exam Vital Signs: Last Vital Signs Pulse 73 04/17/24 09:31 BP 140/80 H 04/17/24 09:31 Pulse Ox 92 04/17/24 09:31 Oxygen Delivery Method Room Air 04/17/24 09:31 BMI result Body Mass Index 39.7 Const General: comfortable and no acute distress Orientation/consciousness: patient oriented x3 HEENT Head: Yes normocephalic Mouth: Normal oral and palatal mucosa present Eyes EOM: EOMs intact bilaterally Neck Neck: Yes supple Resp Auscultation: clear to auscultation bilaterally Cardio Jugular venous distension: no JVD Rate: regular rate GI Palpation (GI): Soft to palpation Auscultation: normal bowel sounds General: Yes no CVA tenderness Back/Spine/Pelvis Back: no CVA tenderness Skin General skin exam: no rashes or lesions noted Neuro General: patient oriented x3 and moves all extremities Extrem General: Yes no pedal edema Results Reviewed Nephrology Results: Hgb 13.5 g/dl (12.0-16.0) 12/10/23 WBC 9.1 X10*3/uL (4.8-10.8) 12/10/23 Plt Count 269 X10*3/uL (160-400) 12/10/23 Sodium 142 mmol/L (135-145) 03/23/24 Potassium 4.0 mmol/L (3.3-5.1) 03/23/24 Chloride 106 mmol/L (96-108) 03/23/24 Carbon Dioxide 30 mmol/L (22-29) H 03/23/24 BUN 16 mg/dL (9-16) 03/23/24 Creatinine 0.75 mg/dL (0.5-1.4) 03/23/24 Calcium 9.9 mg/dL (8.4-10.2) 03/23/24 Urine Protein Negative mg/dL (Neg-Trace) 03/09/24 Urine Creatinine 70.86 mg/dL 03/23/24 Protein/Creatinin Ratio TNP 03/23/24 Assessment & Plan Assessment & Plan (1) Hematuria: Code(s): R31.9 - Hematuria, unspecified Category: Medical Qualifiers: Hematuria type: gross Qualified Code(s): R31.0 - Gross hematuria (2) Essential hypertension: Code(s): I10 - Essential (primary) hypertension Category: Medical Plan Josefina has longstanding hypertension. She is prediabetic. She has not lost any weight. She has not on any oral hypoglycemic agents. Her blood pressure has been suboptimally controlled. She had a 24 hour ambulatory blood pressure monitor which showed uncontrolled blood pressure. She has history of diastolic dysfunction. She also had an episode of tanna hematuria recently . She had renal imaging the results of which were unavailable at the time of this office visit. She send her urine culture which was negative. She has family history of bladder cancer. She needs a cystoscopy. I took the liberty to do a urology referral. Her volume status is optimal. I increased her Carvedilol to 25 mg bid. She has not known to have proteinuria but is known to have atherosclerotic cardiovascular disease. She is tolerating LINDY inhibitor well. Her renal functions had been stable . She tries to maintain good hydration. She needs to lose some weight. She should maintain low-sodium diet, continued lifestyle modifications and avoidance of nonsteroidal anti-inflammatories. I did not make any medication changes. More than 50% time was spent discussing all these. Answered all questions. Follow-up given Medications: Changed 2 From carvedilol 12.5 mg PO BID 180 tabs 3RF I25.10 - Atherosclerotic heart disease of [place] coronary artery without angina pectoris To carvedilol 25 mg PO BID 180 tabs 3RF 90 days I25.10 - Atherosclerotic heart disease of [place] coronary artery without angina pectoris Coding Level of Care Code Est Pt Level 4 (43141) Diagnoses Gross hematuria R31.0 Hematuria type: gross Essential hypertension I10
[2024-04-17 09:31] VITALS: BP 140/80; PULSE 73; O2SAT 92; BMI 39.7
== END 2024-04-17 10:06 | disposition home or self-care (01) ==
PROVIDERS: PCP Internal Medicine; Visit Provider Internal Medicine Nephrology
DX: R31.0 Gross hematuria (principal); I10 Essential (primary) hypertension
CPT/HCPCS: 99214

== ENCOUNTER → 2024-04-17 09:30 | Outpatient (BNVA) | payer MEDICARE, BC, OTHER, SELFPAY | PROVIDERS: PCP Internal Medicine; Visit Provider Internal Medicine Nephrology | DX: I10 Essential (primary) hypertension (principal); R31.0 Gross hematuria; I25.10 Atherosclerotic heart disease of native coronary artery without angina pectoris; Z79.899 Other long term (current) drug therapy | CPT/HCPCS: 99212 ==

== ENCOUNTER 2024-05-07 09:42 | Outpatient (REF) | payer MEDICARE, BC, OTHER, SELFPAY ==
[2024-05-07 11:26] LABS: Estimated Average Glucose 157 mg/dL; Hemoglobin A1c % 7.1 % (<6.0)
[2024-05-07 11:38] LABS: Alanine Aminotransferase 20 U/L (0-31); Albumin Level 4.1 g/dL (3.5-5.0); Alkaline Phosphatase 70 U/L (39-117); Anion Gap 10 (12-20); Aspartate Amino Transferase 17 U/L (5-31); Bilirubin Total 0.5 mg/dL (0.0-1.0); Blood Urea Nitrogen 14 mg/dL (9-16); Calcium 10.1 mg/dL (8.4-10.2); Carbon Dioxide 28 mmol/L (22-29); Chloride 106 mmol/L (96-108); Estimated Glomerular Filt Rate > 60; Glucose Random 154 mg/dL (60-115); Potassium 4.1 mmol/L (3.3-5.1); Sodium 140 mmol/L (135-145); Total Protein 7.2 g/dL (6.5-8.0)
== END 2024-05-07 09:43 | disposition home or self-care (01) ==
LOC: HO.10HDL 09:42
PROVIDERS: Visit Provider Internal Medicine
DX: E11.9 Type 2 diabetes mellitus without complications (principal); I10 Essential (primary) hypertension
CPT/HCPCS: 36415; 80053; 83036

== ENCOUNTER 2024-05-15 14:44 | Outpatient (AMB) | payer MEDICARE, BC, OTHER, SELFPAY ==
[2024-05-15 14:59] VITALS: BP 100/70; PULSE 66; O2SAT 95; BMI 38.5
--- NOTE | 2024-05-15 14:59 | HO.NEPHOV ---
Vital Signs 05/15/24 14:59 Height 5 ft 6 in Weight 238 lb 6 oz BMI 38.5 BP 100/70 Blood Pressure Location Lt brachial Position Sitting Pulse 66 Pulse Source Pulse Oximeter Pulse Oximetry (%) 95 Oxygen Delivery Method Room Air Intake Visit Reasons: Not feeling well, per Contracting Executive Required: No Accompanied by: Self / Same As Patient Allergies nifedipine [NIFEDIPINE] Allergy (Unknown, Verified 05/15/24 15:02) UNKNOWN- DOES NOT REMEMBER Pt states no known allergy to Allergy (Unknown, Uncoded 01/21/23 08:46) n/a Medication List - Last Reconciled 05/15/24 by Sawyer Robison MD apixaban (Eliquis) 5 mg PO BID brimonidine 0.15% 1 drp ophthalmic (eye) BEDTIME bupropion HCl SR 100 mg PO DAILY carvedilol 37.5 mg PO DAILY cholecalciferol (vitamin D3) 25 mcg PO BEDTIME clonazepam 0.5 mg PO DAILY PRN clonidine HCl 0.1 mg PO BID hydralazine 25 mg PO TID latanoprost 0.005% 0 drps ophthalmic (eye) lisinopril 40 mg PO BEDTIME multivitamin 1 tab PO BEDTIME paroxetine HCl (Paxil) 40 mg PO DAILY simvastatin 20 mg PO BEDTIME spironolactone 25 mg PO DAILY HPI Comments Details: I had the pleasure of seeing Josefina in follow-up of her hypertension. In the past she had COVID and had chest pain leading to cardiac catheterization. She has not had any medication changes. Her blood pressure has been running high. She underwent 24 hour ambulatory blood pressure monitor which showed sub optimal blood pressure control. She has been prescribed hydralazine 25 mg 3 times a day but was taking only twice a day. She also had an episode of tanna hematuria. She had renal imaging the results of which were unavailable at the time of this office visit. She send her urine culture which was negative. She has family history of bladder cancer. She denies nausea, vomiting, diarrhea, shortness of breath, paroxysmal nocturnal dyspnea, orthopnea, pedal edema or urinary symptoms. She has not lost a little weight. She is compliant with her medications. She avoids nonsteroidal anti-inflammatories tries to minimize sodium in the diet. All other systems have been reviewed and were negative. COUNT INCLUDES THE [facility] Medical History (Updated 05/15/24 @ 15:23 by Sawyer Robison MD) CELIA on CPAP Diastolic dysfunction Panic disorder Generalized anxiety disorder Dysthymia PAF (paroxysmal atrial fibrillation) New onset atrial fibrillation Prediabetes HTN (hypertension) Surgical History History of nasal surgery S/P cardiac cath History of hysterectomy Family History Mother Bladder cancer Social History Alcohol intake: never Comment: instructed to dharmesh dc for assistance. Patient Tobacco Use Status: Former Tobacco user Advance Directives Date on File: 07/03/22 service: No Current occupational status: retired Review of Systems Const All systems reviewed & are unremarkable except as noted in HPI and below Physical Exam Vital Signs: Last Vital Signs Pulse 66 05/15/24 14:59 BP 100/70 05/15/24 14:59 Pulse Ox 95 05/15/24 14:59 Oxygen Delivery Method Room Air 05/15/24 14:59 BMI result Body Mass Index 38.5 Const General: comfortable and no acute distress Orientation/consciousness: patient oriented x3 HEENT Head: Yes normocephalic Mouth: Normal oral and palatal mucosa present Eyes EOM: EOMs intact bilaterally Neck Neck: Yes supple Resp Auscultation: clear to auscultation bilaterally Cardio Jugular venous distension: no JVD Rate: regular rate GI Palpation (GI): Soft to palpation Auscultation: normal bowel sounds General: Yes no CVA tenderness Back/Spine/Pelvis Back: no CVA tenderness Skin General skin exam: no rashes or lesions noted Neuro General: patient oriented x3 and moves all extremities Extrem General: Yes no pedal edema Results Reviewed Nephrology Results: Sodium 140 mmol/L (135-145) 05/07/24 Potassium 4.1 mmol/L (3.3-5.1) 05/07/24 Chloride 106 mmol/L (96-108) 05/07/24 Carbon Dioxide 28 mmol/L (22-29) 05/07/24 BUN 14 mg/dL (9-16) 05/07/24 Creatinine 0.80 mg/dL (0.5-1.4) 05/07/24 Calcium 10.1 mg/dL (8.4-10.2) 05/07/24 Urine Protein Negative mg/dL (Neg-Trace) 03/09/24 Urine Creatinine 70.86 mg/dL 03/23/24 Protein/Creatinin Ratio TNP 03/23/24 Assessment & Plan Assessment & Plan (1) HTN (hypertension): Code(s): I10 - Essential (primary) hypertension Category: Medical Qualifiers: Hypertension type: primary hypertension Qualified Code(s): I10 - Essential (primary) hypertension Plan Josefina has longstanding hypertension. She is prediabetic. She has not lost any weight. She has not on any oral hypoglycemic agents. She had a 24 hour ambulatory blood pressure monitor which showed uncontrolled blood pressure. She has history of diastolic dysfunction. She also had an episode of tanna hematuria . She has family history of bladder cancer. She needs a cystoscopy. Her urology referral. Her volume status is optimal. She is having intermittent orthostatic symptoms. I decreased her Carvedilol to 12.5 mg bid. She has not known to have proteinuria but is known to have atherosclerotic cardiovascular disease. She is tolerating LINDY inhibitor well. Her renal functions had been stable . She tries to maintain good hydration. She needs to lose some weight. She should maintain low-sodium diet, continued lifestyle modifications and avoidance of nonsteroidal anti-inflammatories. I did not make any medication changes. Answered all questions. Follow-up given Medications: Changed From carvedilol 37.5 mg PO DAILY I25.10 - Atherosclerotic heart disease of [place] coronary artery without angina pectoris To carvedilol 12.5 mg PO BID 90 days 180 tabs 1RF I25.10 - Atherosclerotic heart disease of [place] coronary artery without angina pectoris Coding Level of Care Code Est Pt Level 4 (92321) Diagnoses Primary hypertension I10 Hypertension type: primary hypertension
== END 2024-05-15 16:16 | disposition home or self-care (01) ==
PROVIDERS: PCP Internal Medicine; Visit Provider Internal Medicine Nephrology
DX: I10 Essential (primary) hypertension (principal)
CPT/HCPCS: 99214

== ENCOUNTER → 2024-05-15 14:44 | Outpatient (BNVA) | payer MEDICARE, BC, OTHER, SELFPAY | PROVIDERS: PCP Internal Medicine; Visit Provider Internal Medicine Nephrology | DX: I10 Essential (primary) hypertension (principal); I25.10 Atherosclerotic heart disease of native coronary artery without angina pectoris | CPT/HCPCS: 99212 ==

== ENCOUNTER 2024-05-27 10:03 | Outpatient (AMB) | payer MEDICARE, BC, OTHER, SELFPAY ==
--- NOTE | 2024-05-27 10:11 | MHC.OFFVIS ---
Intake Visit Reasons: Hematuria(Family HX Bladder Cancer) Intake Note: New patient is Present for Hematuria/Nephrolithiasis Family HX of Bladder Cancer Antibiotic Allergies: None Blood Thinner: Tam Patient is a former smoker Patient has Family History (Mother) Bladder Cancer Multiple Urinalysis indicated Blood in Urine Recent Ultrasound 02/2024- Bilateral nephrolithiasis, largest calculus 1.4 cm right kidney. No hydronephrosis. Recent A1C- 7.1 Patient states that she has only visibly seen blood in her urine one time. States no pain in pelvic area Denies any hx of Urinary Infections Denies any history of Kidney stones. Button Sawyer Required: No Accompanied by: Self / Same As Patient Allergies nifedipine [NIFEDIPINE] Allergy (Unknown, Verified 05/27/24 10:36) UNKNOWN- DOES NOT REMEMBER Pt states no known allergy to Allergy (Unknown, Uncoded 05/27/24 10:36) n/a HPI Comments Details: Josefina is a pleasant female. She is a patient of Dr. Welch. 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 Patient Tobacco Use Status: Former Tobacco user Advance Directives Date on File: 10/04/22 service: No Current occupational status: retired Review of Systems Const Denies chills and Denies fever(s) Card Reports no additional complaints and Denies syncope Resp Denies cough GI Denies abdominal pain and Denies heartburn Reports as per HPI and Denies change in libido Neuro Denies syncope Psych Denies change in libido Endo Denies change in libido Physical Exam Const General: cooperative, healthy appearing, comfortable and no acute distress Orientation/consciousness: patient oriented x3 HEENT Face and sinus: Yes normal facial exam Mouth: moist mucous membranes Neck Neck: Yes normal visual inspection, Yes full ROM and Yes trachea midline Chest Chest palpation & inspection: normal inspection of the chest Resp Effort & Inspection: normal respiratory effort, able to speak in complete sentences and no respiratory distress GI Inspection: Yes normal to inspection Back/Spine/Pelvis Cervical Spine: normal cervical lordosis Thoracic/Lumbar Spine: thoracic and lumbar spine normal to inspection Skin General skin exam: no rashes or lesions noted Neuro General: patient oriented x3, gait normal, tone normal and moves all extremities Extrem General: Yes normal to inspection and Yes capillary refill normal Results AMB Urinalysis, Automated UA Leukoctes 0 María/uL Last Edit by Marva Butler [facility] on 05/27/24 10:42 UA Nitrite Negative Last Edit by BRAYDON Echeverria on 05/27/24 10:42 UA Urobilinogen 0.2 mg/dL Last Edit by Marva Butler [facility] on 05/27/24 10:42 UA Protein 15 mg/dL Last Edit by Marva Butler [facility] on 05/27/24 10:42 UA pH 6.0 Last Edit by Marva Butler [facility] on 05/27/24 10:42 UA Blood 25 Eduardo/uL Last Edit by Marva Butler [facility] on 05/27/24 10:42 UA Specific Lyons 1.015 Last Edit by BRAYDON Echeverria on 05/27/24 10:42 UA Ketone Negative Last Edit by Marva Butler [facility] on 05/27/24 10:42 UA Bilirubin 0 mg/dL Last Edit by DARLENE Echeverria on 05/27/24 10:42 UA Glucose 0 mg/dL Last Edit by Marva Butler [facility] on 05/27/24 10:42 Results Reviewed Results Reviewed: Laboratory Last Values Urine pH (Auto) 6.0 05/27/24 10:14 Specific Lyons (Auto) 1.015 05/27/24 10:14 Urine Protein (Auto) 15 mg/dL 05/27/24 10:14 Glucose (UA)(Auto) 0 mg/dL 05/27/24 10:14 Urine Ketones (Auto) Negative 05/27/24 10:14 Urine Blood (Auto) 25 Eduardo/uL 05/27/24 10:14 Urine Nitrite (Auto) Negative 05/27/24 10:14 Urine Bilirubin (Auto) 0 mg/dL 05/27/24 10:14 Urine Urobilinogen (Auto) 0.2 mg/dL 05/27/24 10:14 Leukocyte Esterase (Auto) 0 María/uL 05/27/24 10:14 Assessment & Plan Assessment & Plan (1) Hematuria: Code(s): R31.9 - Hematuria, unspecified Category: Medical Qualifiers: Hematuria type: gross Qualified Code(s): R31.0 - Gross hematuria Plan Office cystoscopy Orders: Orders Urine Cytology Today R31.0 - Gross hematuria AMB Urinalysis Automated Today Z13.9 - Encounter for screening, unspecified Patient Instructions: Imaging studies, laboratory and physical exam results were discussed and reviewed in detail. No major barriers to patient understanding were identified. An opportunity to ask questions regarding the treatment plan was provided. All questions were answered. The patient expressed understanding and agreement with the above treatment plan. The patient is aware they should contact our office by phone for worsening of their current condition or the appearance of new urologic symptoms. Compliance is encouraged with any medications and followup testing that is ordered. It is a privilege to participate in the urologic care of your patient. If you have any questions or concerns regarding treatment for the above conditions, or other urologic issues, please do not hesitate to contact me. The office telephone contact is [phone]. This note is constructed using voice recognition software. While every effort has been made to ensure accuracy internal communications specialist errors may have been included. Yours sincerely, Dr Shorty Hayden MD, [facility] - Urology Providers of Expert, Compassionate Care for the Genitourinary System Coding Level of Care Code New Pt Level 3 (17715) Diagnoses Gross hematuria R31.0 Hematuria type: gross
== END 2024-05-27 11:13 | disposition home or self-care (01) ==
PROVIDERS: PCP Internal Medicine; Visit Provider Urology
DX: R31.0 Gross hematuria (principal); Z13.9 Encounter for screening, unspecified
CPT/HCPCS: 99203

== ENCOUNTER 2024-05-27 10:03 | Outpatient (REF) | payer MEDICARE, BC, OTHER, SELFPAY ==
[2024-05-27 16:28] LABS: Urine Cytology See Pathology rpt
== END 2024-05-27 10:04 | disposition home or self-care (01) ==
LOC: HO.LAB 10:03
PROVIDERS: PCP Internal Medicine; Visit Provider Urology
DX: R31.0 Gross hematuria (principal); Z13.9 Encounter for screening, unspecified
CPT/HCPCS: 81003; 88112; 99202

== ENCOUNTER 2024-06-03 11:06 | Outpatient (AMB) | payer MEDICARE, BC, OTHER, SELFPAY ==
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
== END 2024-06-03 12:11 | disposition home or self-care (01) ==
LOC: HO.HOP 11:06
PROVIDERS: PCP Internal Medicine; Visit Provider Psychiatry & Neurology Psychiatry
DX: F41.0 Panic disorder [episodic paroxysmal anxiety] (principal); F41.1 Generalized anxiety disorder; F34.1 Dysthymic disorder
CPT/HCPCS: 90833; 99213

== ENCOUNTER → 2024-06-03 11:06 | Outpatient (BNVA) | payer MEDICARE, BC, OTHER, SELFPAY | PROVIDERS: PCP Internal Medicine; Visit Provider Psychiatry & Neurology Psychiatry | DX: F41.0 Panic disorder [episodic paroxysmal anxiety] (principal); F41.1 Generalized anxiety disorder; F34.1 Dysthymic disorder | CPT/HCPCS: 99212 ==

== ENCOUNTER 2024-06-04 15:39 | Outpatient (AMB) | payer MEDICARE, BC, OTHER, SELFPAY ==
--- NOTE | 2024-06-04 15:56 | HO.NEPHOV ---
Vital Signs 06/04/24 15:58 Height 5 ft 6 in Weight 238 lb 2 oz BMI 38.4 BP 128/70 Blood Pressure Location Lt brachial Position Sitting Pulse 65 Pulse Source Pulse Oximeter Pulse Oximetry (%) 94 Oxygen Delivery Method Room Air Intake Visit Reasons: 6 wks follow up/CONF Ict Help Desk Officer Required: No Accompanied by: Self / Same As Patient Allergies nifedipine [NIFEDIPINE] Allergy (Unknown, Verified 06/04/24 15:59) UNKNOWN- DOES NOT REMEMBER Pt states no known allergy to Allergy (Unknown, Uncoded 05/27/24 10:36) n/a HPI Comments Details: I had the pleasure of seeing Josefina in follow-up of her hypertension. In the past she had COVID and had chest pain leading to cardiac catheterization. She has not had any medication changes. Her blood pressure has been running high. She underwent 24 hour ambulatory blood pressure monitor which showed sub optimal blood pressure control. She has been prescribed hydralazine 25 mg 3 times a day but was taking only twice a day. She also had an episode of tanna hematuria. She had renal imaging the results of which were unavailable at the time of this office visit. She send her urine culture which was negative. She has family history of bladder cancer. She denies nausea, vomiting, diarrhea, shortness of breath, paroxysmal nocturnal dyspnea, orthopnea, pedal edema or urinary symptoms. She has not lost a little weight. She is compliant with her medications. She avoids nonsteroidal anti-inflammatories tries to minimize sodium in the diet. All other systems have been reviewed and were negative. 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 Patient Tobacco Use Status: Former Tobacco user Advance Directives Date on File: 07/03/22 service: No Current occupational status: retired Review of Systems Const All systems reviewed & are unremarkable except as noted in HPI and below Physical Exam Vital Signs: Last Vital Signs Pulse 65 06/04/24 15:58 BP 132/70 06/04/24 15:58 Pulse Ox 94 06/04/24 15:58 Oxygen Delivery Method Room Air 06/04/24 15:58 BMI result Body Mass Index 38.4 Const General: comfortable and no acute distress Orientation/consciousness: patient oriented x3 HEENT Head: Yes normocephalic Mouth: Normal oral and palatal mucosa present Eyes EOM: EOMs intact bilaterally Neck Neck: Yes supple Resp Auscultation: clear to auscultation bilaterally Cardio Jugular venous distension: no JVD Rate: regular rate GI Palpation (GI): Soft to palpation Auscultation: normal bowel sounds General: Yes no CVA tenderness Back/Spine/Pelvis Back: no CVA tenderness Skin General skin exam: no rashes or lesions noted Neuro General: patient oriented x3 and moves all extremities Extrem General: Yes no pedal edema Results Reviewed Nephrology Results: Sodium 140 mmol/L (135-145) 05/07/24 Potassium 4.1 mmol/L (3.3-5.1) 05/07/24 Chloride 106 mmol/L (96-108) 05/07/24 Carbon Dioxide 28 mmol/L (22-29) 05/07/24 BUN 14 mg/dL (9-16) 05/07/24 Creatinine 0.80 mg/dL (0.5-1.4) 05/07/24 Calcium 10.1 mg/dL (8.4-10.2) 05/07/24 Urine Protein Negative mg/dL (Neg-Trace) 03/09/24 Urine Creatinine 70.86 mg/dL 03/23/24 Protein/Creatinin Ratio TNP 03/23/24 Assessment & Plan Assessment & Plan (1) HTN (hypertension): Code(s): I10 - Essential (primary) hypertension Category: Medical Qualifiers: Hypertension type: primary hypertension Qualified Code(s): I10 - Essential (primary) hypertension Plan Josefina has longstanding hypertension. She is prediabetic. She has not lost any weight. She has not on any oral hypoglycemic agents. She had a 24 hour ambulatory blood pressure monitor which showed uncontrolled blood pressure. She has history of diastolic dysfunction. She has a cystoscopy scheduled soon. Her volume status is optimal. Her orthostatic symptoms have improved after I decreased her Carvedilol to 12.5 mg bid. She has not known to have proteinuria but is known to have atherosclerotic cardiovascular disease. She is tolerating LINDY inhibitor well. Her renal functions had been stable . She tries to maintain good hydration. She needs to lose some weight. She should maintain low-sodium diet, continued lifestyle modifications and avoidance of nonsteroidal anti-inflammatories. I did not make any medication changes. Answered all questions. Follow-up given Coding Level of Care Code Est Pt Level 4 (44579) Diagnoses Primary hypertension I10 Hypertension type: primary hypertension
[2024-06-04 15:58] VITALS: BP 128/70; PULSE 65; O2SAT 94; BMI 38.4
== END 2024-06-04 16:19 | disposition home or self-care (01) ==
PROVIDERS: PCP Internal Medicine; Visit Provider Internal Medicine Nephrology
DX: I10 Essential (primary) hypertension (principal)
CPT/HCPCS: 99214

== ENCOUNTER → 2024-06-04 15:39 | Outpatient (BNVA) | payer MEDICARE, BC, OTHER, SELFPAY | PROVIDERS: PCP Internal Medicine; Visit Provider Internal Medicine Nephrology | DX: I10 Essential (primary) hypertension (principal) | CPT/HCPCS: 99212 ==

== ENCOUNTER 2024-07-10 09:46 | Outpatient (AMB) | payer MEDICARE, BC, OTHER, SELFPAY ==
--- NOTE | 2024-07-10 09:49 | A.OFFVIS_ITS ---
Intake Visit Reasons: Cystoscopy/Cytology Results(MicroHem) Intake Note: Patient is Present for Cystoscopy/Cytology Results (Microhematuria) Urology Med: None Antibiotic Allergy: None Blood Thinner: Eliquis URO- G Disposable Cystoscope lot: [id number] exp:01/08/2027 Improvement Auditor Required: No Allergies nifedipine [NIFEDIPINE] Allergy (Unknown, Verified 09/07/24 11:30) UNKNOWN- DOES NOT REMEMBER Pt states no known allergy to Allergy (Unknown, Uncoded 09/02/24 08:47) n/a HPI Comments Details: Josefina is a pleasant female. She is a patient of Dr. Welch. 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 Patient Tobacco Use Status: Former Tobacco user Advance Directives Date on File: 07/03/22 service: No Current occupational status: retired Review of Systems Const Denies chills and Denies fever(s) Card Reports no additional complaints and Denies syncope Resp Denies cough GI Denies abdominal pain and Denies heartburn Reports as per HPI and Denies change in libido Neuro Denies syncope Psych Denies change in libido Endo Denies change in libido Physical Exam Const General: cooperative, healthy appearing, comfortable and no acute distress Orientation/consciousness: patient oriented x3 HEENT Face and sinus: Yes normal facial exam Mouth: moist mucous membranes Neck Neck: Yes normal visual inspection, Yes full ROM and Yes trachea midline Chest Chest palpation & inspection: normal inspection of the chest Resp Effort & Inspection: normal respiratory effort, able to speak in complete sentences and no respiratory distress GI Inspection: Yes normal to inspection Back/Spine/Pelvis Cervical Spine: normal cervical lordosis Thoracic/Lumbar Spine: thoracic and lumbar spine normal to inspection Skin General skin exam: no rashes or lesions noted Neuro General: patient oriented x3, gait normal, tone normal and moves all extremities Extrem General: Yes normal to inspection and Yes capillary refill normal Office Procedures Cystoscopy Consent Discussed risk and benefit or proposed procedure with the patient. Information consent for procedure given to the patient. Discussed technical aspects, risks, benefits and alternatives in full. Addressed all of the patient's questions and concerns regarding the procedure. The patient demonstrated knowledge and understanding. They wish to proceed with this procedure. Preparation The patient was prepped in the usual manner. A child welfare caseworker was present and in the room. Genitalia was prepped with betadine solution in a sterile manner. Lidocaine Jelly 2% was placed into the urethra and 16Fr flexible Olympus cystoscope was inserted into the meatus after adequate lubrication. Procedure Cystoscopy performed using a disposable Urovue digital 16 Kinyarwanda cystoscope. Meatus normal position Bladder examination with retroflexion of cystoscope Bladder Orifices normal shape and position Bladder Capacity median Trabeculations grade 1 Cellule Formation - Diverticulum Formation -- Mucosal Erythema - Bladder Tumor - [id number] DISPOSABLE SCOPE URO-G FLEXIBLE SCOPE Procedure code (CPT) selection complete Office Meds lidocaine HCl 2 % mucosal jelly in applicator Performing Provider: Shorty Hayden MD Performing Location[place] [facility] Administered by: BRAYDON Echeverria on 07/10/24 10:32 Dose Route Admin Location Dispensed Lot Number Expiration Date NDC Account Services Analyst 10 mL intra-urethral 10 mL Comments: administered by Dr Hayden nitrofurantoin monohydrate/macrocrystals 100 mg capsule Performing Provider: Shorty Hayden MD Performing Location: [facility] Administered by: BRAYDON Echeverria on 07/10/24 10:32 Dose Route Admin Location Dispensed Lot Number Expiration Date NDC Account Services Analyst 100 mg PO 1 cap Comments: administered by Dr Hayden naproxen 500 mg tablet Performing Provider: Shorty Hayden MD [facility] Documented (not given) by: BRAYDON Echeverria on 07/10/24 10:32 Reason Not Given: No Longer Necessary Results AMB Urinalysis, Automated UA Leukoctes 0 María/uL Last Edit by BRAYDON Echeverria on 07/10/24 10:33 UA Nitrite Negative Last Edit by BRAYDON Echeverria on 07/10/24 10:33 UA Urobilinogen 0.2 mg/dL Last Edit by BRAYDON Echeverria on 07/10/24 10:3 3 UA Protein 15 mg/dL Last Edit by BRAYDON Echeverria on 07/10/24 10:33 UA pH 5.0 Last Edit by Marva Butler Wendie on 07/10/24 10:33 UA Blood 25 Eduardo/uL Last Edit by Marva Butler [facility] on 07/10/24 10:33 UA Specific [place] 1.030 Last Edit by BRAYDON Echeverria on 07/10/24 10: 33 UA Ketone Negative Last Edit by BRAYDON Echeverria on 07/10/24 10:33 UA Bilirubin 0 mg/dL Last Edit by BRAYDON Echeverria on 07/10/24 10:33 UA Glucose 0 mg/dL Last Edit by BRAYDON Echeverria on 07/10/24 10:33 Results Reviewed Results Reviewed: Laboratory Last Values Urine pH (Auto) 5.0 07/10/24 09:50 Specific [place] (Auto) 1.030 07/10/24 09:50 Urine Protein (Auto) 15 mg/dL 07/10/24 09:50 Glucose (UA)(Auto) 0 mg/dL 07/10/24 09:50 Urine Ketones (Auto) Negative 07/10/24 09:50 Urine Blood (Auto) 25 Eduardo/uL 07/10/24 09:50 Urine Nitrite (Auto) Negative 07/10/24 09:50 Urine Bilirubin (Auto) 0 mg/dL 07/10/24 09:50 Urine Urobilinogen (Auto) 0.2 mg/dL 07/10/24 09:50 Leukocyte Esterase (Auto) 0 María/uL 07/10/24 09:50 Assessment & Plan Assessment & Plan (1) Hematuria: Code(s): R31.9 - Hematuria, unspecified Category: Medical Qualifiers: Hematuria type: gross Qualified Code(s): R31.0 - Gross hematuria Plan Twelve month follow-up Orders: Orders AMB Urinalysis Automated 07/10/24 Z13.9 - Encounter for screening, unspecified AMB Cystoscopy 07/10/24 R31.0 - Gross hematuria Patient Instructions: Imaging studies, laboratory and physical exam results were discussed and reviewed in detail. No major barriers to patient understanding were identified. An opportunity to ask questions regarding the treatment plan was provided. All questions were answered. The patient expressed understanding and agreement with the above treatment plan. The patient is aware they should contact our office by phone for worsening of their current condition or the appearance of new urologic symptoms. Compliance is encouraged with any medications and followup testing that is ordered. It is a privilege to participate in the urologic care of your patient. If you have any questions or concerns regarding treatment for the above conditions, or other urologic issues, please do not hesitate to contact me. The office telephone contact is [phone]. This note is constructed using voice recognition software. While every effort has been made to ensure accuracy precision optical goods worker errors may have been included. Yours sincerely, Dr Shorty Hayden MD, [facility] - Urology Providers of Expert, Compassionate Care for the Genitourinary System Coding Level of Care Code Est Pt Level 3 (88993) Diagnoses Gross hematuria R31.0 Hematuria type: gross CPT Codes Cystoscopy - CPT: 09969-[id number] ([id number])
== END 2024-07-10 11:26 | disposition home or self-care (01) ==
PROVIDERS: PCP Internal Medicine; Visit Provider Urology
DX: R31.0 Gross hematuria (principal); Z13.9 Encounter for screening, unspecified
CPT/HCPCS: 52000; 99213

== ENCOUNTER → 2024-07-10 09:46 | Outpatient (BNVA) | payer MEDICARE, BC, OTHER, SELFPAY | PROVIDERS: PCP Internal Medicine; Visit Provider Urology | DX: R31.0 Gross hematuria (principal) | CPT/HCPCS: 52000; 81003; 99212 ==

== ENCOUNTER 2024-08-13 10:19 | Outpatient (REF) | payer MEDICARE, BC, OTHER, SELFPAY ==
--- NOTE | ~2024-08-13 | XR_ITS ---
EXAMINATION: XR HIP, RIGHT CLINICAL INFORMATION: Right groin pain COMPARISON: None available. TECHNIQUE: Two views of the right hip. FINDINGS: No acetabular or pubic fracture seen. There is mild narrowing of the superior medial right hip joint space. Minimal spurring of the right greater trochanter region. No erosive process. Small spurring of the superior lateral left femoral head and the inferomedial acetabular margin. There are pelvic phleboliths. Sacrum is grossly intact. XR/XR hip RT w PEL1V IMPRESSION: No acute process. Degenerative changes as described. Electronically signed by: Roman Enciso MD 08/13/2024 04:46 PM ROHAN
== END 2024-08-13 10:20 | disposition home or self-care (01) ==
LOC: HO.XRAY 10:19
PROVIDERS: PCP Internal Medicine; Visit Provider Internal Medicine
DX: R10.30 Lower abdominal pain, unspecified (principal)
CPT/HCPCS: 73502

== ENCOUNTER 2024-08-18 07:37 | Emergency (ER) | payer MEDICARE, BC, OTHER, SELFPAY ==
[2024-08-18 07:49] VITALS: BP 171/76; PULSE 82; RESP 18; TEMP 37.1; O2SAT 94; BMI 38.4
[2024-08-18] MEDS: Cyclobenzaprine HCl 10 MG TABLET PO (09:15)
[2024-08-18] MEDS: Lidocaine 4 % Patch ADH..PATCH 1 PATCH TRANSDERMA (09:16)
--- NOTE | 2024-08-18 09:52 | ED_ITS ---
HPI - General Adult General Chief complaint: General Medical Stated complaint: R leg pain Time Seen by Provider: 08/18/24 08:57 Source: patient, RN notes reviewed and old records reviewed Mode of arrival: ambulatory History of Present Illness ED Provider: Cindy Corona PA-C HPI narrative: 69-year-old female with a past medical history of diabetes, CELIA on CPAP, proximal AFib on Eliquis, HTN, presenting to the ED complaining of right groin pain radiating down RLE x few months. Has been taking OTC Tylenol Arthritis without relief. Admits saw PCP the other day had outpatient x-rays which she does not know the results of. Denies known injury, trauma, fall, numbness/tingling, weakness, incontinence/retention, dysuria/hematuria, abdominal pain, back pain Related Data Home Medications ?Medication ?Instructions ?Recorded ?Confirmed brimonidine 0.15 % eye drops 1 drp ophthalmic (eye) BEDTIME 10/09/21 06/03/24 cholecalciferol (vitamin D3) 25 25 mcg PO BEDTIME 10/09/21 06/03/24 mcg (1,000 unit) tablet multivitamin 1 tab PO BEDTIME 10/09/21 05/15/24 clonidine HCl 0.1 mg tablet 0.1 mg PO BID 11/07/21 06/03/24 lisinopril 40 mg tablet 40 mg PO BEDTIME 11/07/21 06/03/24 simvastatin 20 mg tablet 20 mg PO BEDTIME 11/07/21 06/03/24 latanoprost 0.005 % eye drops 0 drp ophthalmic (eye) 08/28/22 06/03/24 brimonidine 0.2 % eye drops drp ophthalmic (eye) 06/03/24 06/03/24 Previous Rx's ?Medication ?Instructions ?Recorded clonazepam 0.5 mg tablet 0.5 mg PO DAILY PRN Anxiety #30 01/22/24 tabs spironolactone 25 mg tablet 25 mg PO DAILY #90 tabs 05/08/24 carvedilol 12.5 mg tablet 12.5 mg PO BID 90 days #180 tabs 05/15/24 bupropion HCl 100 mg tablet,12 hr 100 mg PO DAILY #90 tabs 06/03/24 sustained-release paroxetine HCl 40 mg tablet (Paxil) 40 mg PO DAILY #90 tabs 06/03/24 apixaban 5 mg tablet (Eliquis) 5 mg PO BID #180 tabs 08/10/24 hydralazine 25 mg tablet 25 mg PO TID #270 tabs 08/10/24 cyclobenzaprine 5 mg tablet 5 mg PO Q8H PRN pain (scale score 08/18/24 7-10) 5 days #14 tabs lidocaine 5 % topical patch 1 patch topical DAILY PRN pain #30 08/18/24 (Lidoderm) ea Allergies Allergy/AdvReac Type Severity Reaction Status Date / Time nifedipine [NIFEDIPINE] Allergy Unknown UNKNOWN- Verified 08/18/24 07:53 DOES NOT REMEMBER Pt states no known allergy to Allergy Unknown n/a Uncoded 07/10/24 09:49 Review of Systems Review of Systems: Yes all other systems are reviewed and are negative Constitutional: Constitutional: Reports as per [facility] Past Medical History Attestation statement: The following information was validated with the patient. 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 Patient Tobacco Use Status: Former Tobacco user Advance Directives: Yes Advance Directives on File: Yes Advance Directives Date on File: 07/03/22 Do you have a plan to hurt others: No Plan service: No Current occupational status: retired Physical Exam ED Vital Signs: Vital Signs - 24 hr 08/18/24 07:49 Temperature 98.7 F Pulse Rate 82 Respiratory Rate 18 Blood Pressure 171/76 H Pulse Oximetry 94 Oxygen Delivery Method Room Air BMI result Body Mass Index 38.4 Const General: cooperative, healthy appearing and no acute distress Orientation/consciousness: patient oriented x3 Limitations: no limitations HENMT Head: Yes normal to inspection and Yes atraumatic Ears: hearing grossly normal bilaterally General nose exam: Normal external nose present Face and sinus: Yes normal facial exam Eyes General: appearance normal, both eyes and all related structures EOM: EOMs intact bilaterally Neck Neck: Yes normal visual inspection and Yes no meningeal signs Resp Effort & Inspection: normal respiratory effort and no respiratory distress Cardio Rate: regular rate GI Inspection: Yes normal to inspection Palpation (GI): Soft to palpation, nontender, no guarding and not rigid General: Yes no CVA tenderness Back/Spine/Pelvis Other: No midline cervical/thoracic/lumbar spinous tenderness/step-off or deformity Back: no CVA tenderness Skin Rashes: no rashes Wounds: no wounds Neuro Other: Strength intact throughout. No saddle anesthesia. Sensation intact to light touch. Neurovascular intact distally General: patient oriented x3, tone normal and no meningeal signs Cranial nerves: Yes CN's II-XII intact bilaterally Gait exam (Neuro): Normal gait present Extrem Other: Right groin with mild reproducible tenderness. No erythema, ecchymosis, fluctuance/induration. Tenderness elicited with external rotation of hip. Neurovascularly intact distally. General: Yes normal to inspection Course Course Course Narrative: XR hip RT w PEL1V IMPRESSION: No acute process. Degenerative changes as described. > patient reports symptomatic improvement after Flexeril and Lidoderm patch given in the ED Results discussed with patient including worrisome signs and symptoms and strict return precautions, and when to return to the emergency department. They verbalized understanding and feel safe for discharge at this time. Medications Administered Discontinued Medications Generic Name Dose Route Start Last Admin Trade Name Freq PRN Reason Stop Dose Admin Cyclobenzaprine HCl 10 mg 08/18/24 09:06 08/18/24 09:15 Cyclobenzaprine Hcl 10 Mg Tablet PO 08/18/24 09:07 10 mg ONCE ONE Administration Lidocaine 1 patch 08/18/24 09:06 08/18/24 09:16 Lidocaine 4 % Patch Adh..Patch TRANSDERMA 08/18/24 09:07 1 patch ONCE ONE Administration Protocol Medical Decision Making Medical Decision Making MDM Narrative: 69-year-old female with a past medical history of diabetes, CELIA on CPAP, proximal AFib on Eliquis, HTN, presenting to the ED complaining of right groin pain radiating down RLE x few months. On exam vital signs stable, NAD, nontoxic appearing, physical exam as above, no midline spinous tenderness, abdomen soft and nontender. No red flag symptoms. Reproducible right groin tenderness and pain with external rotation of hip. Outpatient x-ray from 08/13 shows degenerative changes, no fracture. Concern for strain vs osteoarthritis. Low suspicion for hernia, intra-abdominal process including appendicitis/diverticulitis, renal stone, ovarian pathology, cauda equina/cord compression Plan: Pain control Please refer to course for remaining clinical decision making, interpretation of labs/imaging results, and discussions with consultants and/or family members. Differential Diagnosis Differential Diagnoses: The differential diagnosis associated with the presentation includes As above Independent Interpretation I performed an independent interpretation of an: Plain X-Ray Radiology Impression Discussion of test interpretation with radiology: I have reviewed the radiologist's reading. External Record Review External record reviewed: Inpatient record, Office record, Outpatient record, Prior outpatient labs, Prior outpatient radiology, Primary care record and Outside ED record Tests considered The following testing was considered but not selected: As above Prescription Management I considered prescription management with: Pain Medication Chronic Conditions Patient?s care impacted by: Diabetes and Hypertension Social Determinants Patient?s care significantly limited by Social Determinants of Health including: Other Social Determinant of Health Discharge Plan Discharge Clinical Impression: Right groin pain Patient Disposition: Home, Self-Care Instructions: Arthritis (ED) Additional Instructions: Your x-ray shows degenerative changes. Please follow up with her primary care doctor as well as Orthopedics as scheduled Flexeril is a muscle relaxer, take at night as it makes you drowsy, do not drive, drink alcohol, or operate machinery while taking it Lidoderm patches are numbing patches, apply to painful area In addition take Tylenol at home If symptoms persist or worsen, pain becomes unbearable, you developed urinary retention or incontinence, or weakness return to the ED Prescriptions: New lidocaine [Lidoderm] 5 % adhesive patch,medicated 1 patch topical DAILY MDD remove after 12 hours PRN (Reason: pain) Qty: 30 0RF Rx Instructions: leave on most painful area for up to 12 hrs cyclobenzaprine 5 mg tablet 5 mg PO Q8H PRN (Reason: pain (scale score 7-10)) 5 Days Qty: 14 0RF No Action spironolactone 25 mg tablet 25 mg PO DAILY Qty: 90 3RF Eliquis 5 mg tablet 5 mg PO BID Qty: 180 3RF hydralazine 25 mg tablet 25 mg PO TID Qty: 270 3RF brimonidine 0.15 % drops 1 drp ophthalmic (eye) BEDTIME multivitamin Tablet 1 tab PO BEDTIME cholecalciferol (vitamin D3) 25 mcg (1,000 unit) Tablet 25 mcg PO BEDTIME clonidine HCl 0.1 mg tablet 0.1 mg PO BID lisinopril 40 mg tablet 40 mg PO BEDTIME simvastatin 20 mg tablet 20 mg PO BEDTIME latanoprost 0.005 % drops 0 drp ophthalmic (eye) carvedilol 12.5 mg tablet 12.5 mg PO BID 90 Days Qty: 180 1RF clonazepam 0.5 mg tablet 0.5 mg PO DAILY PRN (Reason: Anxiety) Qty: 30 2RF brimonidine 0.2 % drops ophthalmic (eye) bupropion HCl 100 mg tablet sustained-release 12 hr 100 mg PO DAILY Qty: 90 1RF paroxetine HCl [Paxil] 40 mg tablet 40 mg PO DAILY Qty: 90 1RF Referrals: Radu Welch MD [Primary Care Provider] - Print Language: Burundian
[2024-08-18 10:16] VITALS: BP 171/76; PULSE 82; RESP 18; TEMP 37.1; O2SAT 94
== END 2024-08-18 10:18 | disposition home or self-care (01) ==
PROVIDERS: Emergency Provider Emergency Medicine; PCP Internal Medicine
DX: R10.31 Right lower quadrant pain (principal); E11.9 Type 2 diabetes mellitus without complications; I10 Essential (primary) hypertension; E78.5 Hyperlipidemia, unspecified; I48.0 Paroxysmal atrial fibrillation; J45.909 Unspecified asthma, uncomplicated; Z87.891 Personal history of nicotine dependence; Z79.01 Long term (current) use of anticoagulants; Z79.02 Long term (current) use of antithrombotics/antiplatelets; Z79.899 Other long term (current) drug therapy
CPT/HCPCS: 99283

== ENCOUNTER 2024-08-20 00:59 | Emergency (ER) | payer MEDICARE, BC, OTHER, SELFPAY ==
[2024-08-20 01:03] VITALS: BP 160/74; PULSE 84; RESP 18; TEMP 36.8; O2SAT 94; BMI 38.5
[2024-08-20 04:00] VITALS: BP 170/83; PULSE 80; RESP 16; TEMP 36.8; O2SAT 98
--- NOTE | 2024-08-20 05:16 | PC.NURSE ---
Pt states she does not want to wait any longer to see provider, provider notified.
== END 2024-08-20 05:18 | disposition left against medical advice (07) ==
PROVIDERS: Emergency Provider Emergency Medicine Emergency Medical Services
DX: R60.0 Localized edema (principal)
CPT/HCPCS: 99284

== ENCOUNTER 2024-08-20 10:11 | Emergency (ER) | payer MEDICARE, BC, OTHER, SELFPAY ==
--- NOTE | ~2024-08-20 | US_ITS ---
EXAMINATION: US TRIPLEX LOWER EXTREMITY, RIGHT CLINICAL INFORMATION: Edema, right lower extremity COMPARISON: None available. TECHNIQUE: Color-flow triplex imaging with spectral analysis and compression Doppler were performed on the right lower extremity. FINDINGS: Respiratory variation, normal compression and augmented flow are noted throughout the right lower extremity. The visualized common femoral vein, superficial femoral vein, profunda femoral vein, popliteal vein and midcalf peroneal and posterior tibial venous segments show no evidence of deep venous thrombosis. There is no Arroyo's cyst. US/US venous duplex LE RT IMPRESSION: No acute deep venous thrombosis interrogated veins, right lower extremity. Electronically signed by: Morgan Germain MD 08/20/2024 11:39 AM [facility]
[2024-08-20 10:26] VITALS: BP 148/72; PULSE 77; RESP 16; TEMP 36.9; O2SAT 94; BMI 36.4
[2024-08-20 10:30] VITALS: BP 148/72; PULSE 77; RESP 16; TEMP 36.9; O2SAT 94
--- NOTE | 2024-08-20 11:32 | ED.EXTPRO ---
HPI - Extremity Problem General Chief complaint: Extremity Injury, Lower Stated complaint: R leg/foot pain Time Seen by Provider: 08/20/24 10:27 Source: patient, family, RN notes reviewed and old records reviewed Mode of arrival: ambulatory Limitations: no limitations History of Present Illness ED Provider: Loraine So PA-C HPI Narrative: 69-year-old female with a past medical history of diabetes, CELIA on CPAP, proximal AFib on Eliquis, HTN, obesity who presents to the ER for evaluation of right groin pain for the last 2 months. she was seen here for the same on 08/18 and was discharge with flexeril. she reports overall her symptoms were much improved the day after discharge. she did have a trip and fall last night, sustaining abrasions to the right knee and foot. she thinks her right foot was swollen last night. she denies and ankle pain. she has some pain with flexion of the right knee. pain is primarily in the right anterior hip and groin. worse with movement and ambulation. pain and numbness radiate down the entire front of the leg to the foot. no weakness. no fevers. MD Complaint: extremity pain, extremity swelling and joint pain Onset (ago): month(s) Pain Consistency: intermittent Location: right and lower extremity Severity scale (1-10): 8 Quality: sharp Radiation: distal Relieving factors: medication Exacerbating factors: range of motion, weight bearing, walking and palpation Associated symptoms: denies other symptoms Related Data Home Medications ?Medication ?Instructions ?Recorded ?Confirmed brimonidine 0.15 % eye drops 1 drp ophthalmic (eye) BEDTIME 10/09/21 06/03/24 cholecalciferol (vitamin D3) 25 25 mcg PO BEDTIME 10/09/21 06/03/24 mcg (1,000 unit) tablet multivitamin 1 tab PO BEDTIME 10/09/21 05/15/24 clonidine HCl 0.1 mg tablet 0.1 mg PO BID 11/07/21 06/03/24 lisinopril 40 mg tablet 40 mg PO BEDTIME 11/07/21 06/03/24 simvastatin 20 mg tablet 20 mg PO BEDTIME 11/07/21 06/03/24 latanoprost 0.005 % eye drops 0 drp ophthalmic (eye) 08/28/22 06/03/24 brimonidine 0.2 % eye drops drp ophthalmic (eye) 06/03/24 06/03/24 Previous Rx's ?Medication ?Instructions ?Recorded clonazepam 0.5 mg tablet 0.5 mg PO DAILY PRN Anxiety #30 01/22/24 tabs spironolactone 25 mg tablet 25 mg PO DAILY #90 tabs 05/08/24 carvedilol 12.5 mg tablet 12.5 mg PO BID 90 days #180 tabs 05/15/24 bupropion HCl 100 mg tablet,12 hr 100 mg PO DAILY #90 tabs 06/03/24 sustained-release paroxetine HCl 40 mg tablet (Paxil) 40 mg PO DAILY #90 tabs 06/03/24 apixaban 5 mg tablet (Eliquis) 5 mg PO BID #180 tabs 08/10/24 hydralazine 25 mg tablet 25 mg PO TID #270 tabs 08/10/24 cyclobenzaprine 5 mg tablet 5 mg PO Q8H PRN pain (scale score 08/18/24 7-10) 5 days #14 tabs lidocaine 5 % topical patch 1 patch topical DAILY PRN pain #30 08/18/24 (Lidoderm) ea acetaminophen 500 mg tablet 1,000 mg (2 x 500 mg) PO Q6H PRN 08/20/24 (Tylenol Extra Strength) pain #30 tabs prednisone 20 mg tablet 40 mg (2 x 20 mg) PO DAILY #10 tabs 08/20/24 Allergies Allergy/AdvReac Type Severity Reaction Status Date / Time nifedipine [NIFEDIPINE] Allergy Unknown UNKNOWN- Verified 08/20/24 10:29 DOES NOT REMEMBER Pt states no known allergy to Allergy Unknown n/a Uncoded 08/20/24 10:29 Review of Systems Review of Systems: Yes all other systems are reviewed and are negative [facility] Past Medical History Medical History Type 2 diabetes mellitus without complications Diverticulosis of large intestine without perforation or abscess without bleeding 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 Patient Tobacco Use Status: Former Tobacco user Advance Directives Date on File: 07/03/22 service: No Current occupational status: retired Physical Exam Vital Signs: Vital Signs: Last Vital Signs Temp 97.9 F 08/20/24 12:42 Pulse 71 08/20/24 12:42 Resp 18 08/20/24 12:42 BP 158/83 H 08/20/24 12:42 Pulse Ox 94 08/20/24 12:42 O2 Del Method Room Air 08/20/24 12:42 BMI result Body Mass Index 36.4 Appearance: Alert. Oriented X3. No acute distress. Head: normocephalic, atraumatic. Eyes: Pupils equal, round and reactive to light. ENT: Pharynx normal. No tonsillar swelling or exudate. Neck: Normal inspection. Neck supple. CVS: Normal heart rate and rhythm. Pulses normal. Respiratory: No respiratory distress. Breath sounds normal. Abdomen: Soft, obese, and nontender. +BS x4 Skin: Skin warm and dry. Normal skin color. Normal skin turgor. No rashes. Extremities: right lower extremity without significant swelling, superficial abrasions to the right knee and anterior right foot. no ankle swelling or foot swelling. no calf tenderness or swelling. tenderness of right anterior hip, pain with flexion. Neuro/psych: Oriented X 3. No motor deficit. No sensory deficit. CN II-XII intact. Normal speech and cognition. steady gait Medications Administered Discontinued Medications Generic Name Dose Route Start Last Admin Trade Name Freq PRN Reason Stop Dose Admin Acetaminophen 975 mg 08/20/24 11:19 08/20/24 11:48 Acetaminophen 325 Mg Tablet PO 08/20/24 11:20 975 mg ONCE ONE Administration Cyclobenzaprine HCl 5 mg 08/20/24 11:19 08/20/24 11:48 Cyclobenzaprine Hcl 5 Mg Tablet PO 08/20/24 11:20 5 mg ONCE ONE Administration Medical Decision Making Medical Decision Making MDM Narrative: 69-year-old female with a past medical history of diabetes, CELIA on CPAP, proximal AFib on Eliquis, HTN, obesity who presents to the ER for evaluation of right groin pain for the last 2 months. pain radiates down the leg with intermittent numbness. recently had XR hip/pelvis at PCP with some degenerative changes and spurring of the femoral head. she initially had improvement/resolution with fexeril but pain returned. LE doppler today not showing any evidence of DVT. given radicular symptoms will treat with coarse of prednisone. she has appointment w/ PCP saturday. ambulating w/ steady gait. stable for d/c home Differential Diagnosis Differential Diagnoses: The differential diagnosis associated with the presentation includes DVT, radiculopathy, occult pubic fracture, arthritis, muscle spasm, inguinal hernia Independent Interpretation I performed an independent interpretation of an: Ultrasound Interpretation: us without acute DVT Radiology Impression Discussion of test interpretation with radiology: I have reviewed the radiologist's reading. Radiologist Impression: US/US venous duplex LE RT IMPRESSION: No acute deep venous thrombosis interrogated veins, right lower extremity. Independent Historian Clinical information obtained from an independent historian. History obtained from or confirmed by: Spouse External Record Review External record reviewed: Prior outpatient radiology EXAMINATION: XR HIP, RIGHT CLINICAL INFORMATION: Right groin pain COMPARISON: None available. TECHNIQUE: Two views of the right hip. FINDINGS: No acetabular or pubic fracture seen. There is mild narrowing of the superior medial right hip joint space. Minimal spurring of the right greater trochanter region. No erosive process. Small spurring of the superior lateral left femoral head and the inferomedial acetabular margin. There are pelvic phleboliths. Sacrum is grossly intact. XR/XR hip RT w PEL1V IMPRESSION: No acute process. Degenerative changes as described. Prescription Management I considered prescription management with: Pain Medication Chronic Conditions Patient?s care impacted by: Other (obesity, afib on anticoagulation (cannot use NSAIDS due to this)) Critical Care Time Critical Care Time Critical Care Time: No Discharge Plan Discharge Clinical Impression: Radiculopathy Qualifiers: Spinal region: lumbosacral Qualified Code(s): M54.17 - Radiculopathy, lumbosacral region Patient Disposition: Home, Self-Care Instructions: Lumbar Radiculopathy (ED) Additional Instructions: your ultrasound did not show any blood clots your symptoms are likely due to a combination of arthritis, muscle spasm and inflammation of a nerve take the prescribed course of prednisone as directed to help with inflammation of the nerve take tylenol 1000 mg every 6 hours as needed for pain take the previously prescribed muscle relaxer as needed follow up with your PCP as scheduled on Saturday If you develop new or worsening symptoms call 911 or come back to the ER for further evaluation. Prescriptions: New prednisone 20 mg tablet 40 mg PO DAILY Qty: 10 0RF acetaminophen [Tylenol Extra Strength] 500 mg tablet 1,000 mg PO Q6H PRN (Reason: pain) Qty: 30 0RF No Action spironolactone 25 mg tablet 25 mg PO DAILY Qty: 90 3RF Eliquis 5 mg tablet 5 mg PO BID Qty: 180 3RF hydralazine 25 mg tablet 25 mg PO TID Qty: 270 3RF brimonidine 0.15 % drops 1 drp ophthalmic (eye) BEDTIME multivitamin Tablet 1 tab PO BEDTIME cholecalciferol (vitamin D3) 25 mcg (1,000 unit) Tablet 25 mcg PO BEDTIME clonidine HCl 0.1 mg tablet 0.1 mg PO BID lisinopril 40 mg tablet 40 mg PO BEDTIME simvastatin 20 mg tablet 20 mg PO BEDTIME lidocaine [Lidoderm] 5 % adhesive patch,medicated 1 patch topical DAILY MDD remove after 12 hours PRN (Reason: pain) Qty: 30 0RF Rx Instructions: leave on most painful area for up to 12 hrs cyclobenzaprine 5 mg tablet 5 mg PO Q8H PRN (Reason: pain (scale score 7-10)) 5 Days Qty: 14 0RF latanoprost 0.005 % drops 0 drp ophthalmic (eye) carvedilol 12.5 mg tablet 12.5 mg PO BID 90 Days Qty: 180 1RF clonazepam 0.5 mg tablet 0.5 mg PO DAILY PRN (Reason: Anxiety) Qty: 30 2RF brimonidine 0.2 % drops ophthalmic (eye) bupropion HCl 100 mg tablet sustained-release 12 hr 100 mg PO DAILY Qty: 90 1RF paroxetine HCl [Paxil] 40 mg tablet 40 mg PO DAILY Qty: 90 1RF Referrals: [facility] [place] Orthopedic Surgeons [Provider Group] [facility] Pain Management [Provider Group] Radu Welch MD [Primary Care Provider] - Interventions: ED Discharge Assessment Last Done: 08/20/24 12:42 Discharge Date/Time: 08/20/24 12:47 Print Language: Lithuanian
[2024-08-20] MEDS: Cyclobenzaprine HCl 5 MG TABLET PO (11:48)
[2024-08-20] MEDS: Acetaminophen 325 MG TABLET 975 MG PO (11:48)
[2024-08-20 11:49] VITALS: BP 158/83; PULSE 71; RESP 18; TEMP 36.6; O2SAT 94
[2024-08-20 12:42] VITALS: BP 158/83; PULSE 71; RESP 18; TEMP 36.6; O2SAT 94
== END 2024-08-20 12:47 | disposition home or self-care (01) ==
PROVIDERS: Emergency Provider Emergency Medicine; PCP Internal Medicine
DX: R10.31 Right lower quadrant pain (principal); R60.0 Localized edema; I48.91 Unspecified atrial fibrillation; Z79.01 Long term (current) use of anticoagulants; Z79.899 Other long term (current) drug therapy
CPT/HCPCS: 93971; 99281; 99283; 99284

== ENCOUNTER → 2024-08-20 11:02 | Outpatient (BNV) | payer MEDICARE, BC, OTHER, SELFPAY | PROVIDERS: Emergency Provider Emergency Medicine; PCP Internal Medicine; Visit Provider Radiology Diagnostic Radiology | DX: M79.604 Pain in right leg (principal); R22.41 Localized swelling, mass and lump, right lower limb | CPT/HCPCS: 93971 ==

== ENCOUNTER 2024-08-25 10:04 | Outpatient (AMB) | payer MEDICARE, BC, OTHER, SELFPAY ==
--- NOTE | 2024-08-25 10:10 | MHC.OFFVIS ---
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 Patient complains of right groin pain that radiates down the entire leg. Patient reports that she has had pain since about April, she though originally that she had pulled her groin but the pain has increased since then. She has pain in the groin that radiates down to the lopez. She has pain with all activity, walking standing, sitting, getting out of the car. She feels numbness and tingling. She has taken multiple falls. She was given Cyclobenzaprine and Prednisone in the ED which is only mildly helpful . 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 Patient complains of right groin pain that radiates down the entire leg. Patient reports that she has had pain since about April, she though originally that she had pulled her groin but the pain has increased since then. She has pain in the groin that radiates down to the lopez. She has pain with all activity, walking standing, sitting, getting out of the car. She feels numbness and tingling. She has taken multiple falls. She was given Cyclobenzaprine and Prednisone in the ED which is only mildly helpful . Not only does she describe radiating pain she is unable to dorsiflex her ankle and toes on the right. She has no numbness tingling. On the left leg she does describe numbness and tingling intermittently. [facility] Medical History Type 2 diabetes mellitus without complications Diverticulosis of large intestine without perforation or abscess without bleeding 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 Low back pain, unspecified Pain in left shoulder Intercostal pain Major depressive disorder, recurrent, unspecified Acute cough Unilateral primary osteoarthritis, left knee CELIA on CPAP Diastolic dysfunction Panic disorder Generalized anxiety disorder Dysthymia PAF (paroxysmal atrial fibrillation) New onset atrial fibrillation Prediabetes HTN (hypertension) Surgical History History of nasal surgery S/P cardiac cath History of hysterectomy Family History Mother Bladder cancer Social History Alcohol intake: never Comment: instructed to ring dc for assistance. Patient Tobacco Use Status: Former Tobacco user Advance Directives Date on File: 07/03/22 service: No Current occupational status: retired Physical Exam Vital Signs: BMI result Body Mass Index 36.3 Extrem Other: Right hip with mildly positive impingement test. More notable is loss of ability to dorsiflex and a markedly abnormal gait. No hyperreflexia and no clonus. Sensation normal to light touch bilateral lower extremities. Results Reviewed Results Reviewed: I personally reviewed relevant radiographs. Moderate right hip osteoarthritis Assessment & Plan Assessment & Plan (1) Arthritis of right hip: Code(s): M16.11 - Unilateral primary osteoarthritis, right hip Category: Medical Plan: This is a 69-year-old with a redness of the right hip. It has been symptomatic and she received a 40 mg prednisone dose without a taper from the ED. I sent a taper to her pharmacy as I think this will help her. I also sent a referral for her right hip injection. I sent a prescription for physical therapy as well. (2) Right foot drop: Code(s): M21.371 - Foot drop, right foot Category: Medical Plan: I am concerned about her footdrop which appears idiopathic and it may or may not be the consequence of a recent fall but I think a stat MRI is in order. Orders: Orders MR lumbar spine wo con Today M21.371 - Foot drop, right foot PT Evaluation and Treatment Today M16.11 - Unilateral primary osteoarthritis, right hip, M21.371 - Foot drop, right foot Referrals Pain Management Referral M16.11 - Unilateral primary osteoarthritis, right hip Medications: New prednisone prednisone 5 mg: take 8 tablets (40 mg) on Day 1; 7 tablets (35 mg) on Day 2; then decrease by 1 tablet every day until finished PO 21 ea 0RF Coding Level of Care Code New Pt Level 4 (92315) Diagnoses Arthritis of right hip M16.11 Right foot drop M21.371
[2024-08-25 10:22] VITALS: BMI 36.3
== END 2024-08-25 12:30 | disposition home or self-care (01) ==
PROVIDERS: PCP Internal Medicine; Visit Provider Orthopaedic Surgery
DX: M16.11 Unilateral primary osteoarthritis, right hip (principal); M21.371 Foot drop, right foot
CPT/HCPCS: 99204

== ENCOUNTER → 2024-08-25 10:04 | Outpatient (BNVA) | payer MEDICARE, BC, OTHER, SELFPAY | PROVIDERS: PCP Internal Medicine; Visit Provider Orthopaedic Surgery | DX: M16.11 Unilateral primary osteoarthritis, right hip (principal); M21.371 Foot drop, right foot | CPT/HCPCS: 99202 ==

== ENCOUNTER 2024-08-28 15:15 | Outpatient (REF) | payer MEDICARE, BC, OTHER, SELFPAY ==
--- NOTE | ~2024-08-28 | MR_ITS ---
EXAMINATION: MR LUMBAR SPINE WITHOUT CONTRAST CLINICAL INFORMATION: Foot drop, right foot COMPARISON: MRI lumbar spine on 07/16/2008 TECHNIQUE: MRI of the lumbar spine was obtained using routine sequences without contrast. FINDINGS: Preservation of the normal lumbar lordosis. No listhesis. No acute bone marrow abnormality. Diffusely heterogeneous bone marrow signal is likely degenerative. The vertebral body heights are preserved. Multilevel disc desiccation with mild to moderate disc height loss at L4-5. Type II endplate changes at L4-5. Multilevel endplate osteophytosis. The visualized spinal cord is normal in caliber. No abnormal cord signal. The conus medullaris terminates at L1. T12-L1: Shallow disc bulge and bilateral facet arthrosis. No significant spinal canal or neural foraminal narrowing. L1-2: Shallow disc bulge and bilateral facet arthrosis. No significant spinal canal or neural foraminal narrowing. L2-3: Diffuse disc bulge and bilateral facet arthrosis. No significant spinal canal or neural foraminal narrowing. L3-4: Diffuse disc bulge with superimposed left subarticular disc protrusion. Bilateral facet arthrosis. No significant spinal canal or neural foraminal narrowing. L4-5: Diffuse disc bulge with superimposed annular fissure. Bilateral facet arthrosis. No significant spinal canal stenosis. Mild left neural foraminal narrowing. L5-S1: Diffuse disc bulge with bilateral foraminal disc protrusion. Annular fissure and bilateral facet arthrosis. No significant spinal canal stenosis. Mild left greater than right neural foraminal narrowing. The paravertebral soft tissues are unremarkable. MR/MR lumbar spine wo con IMPRESSION: Multilevel lumbar spondylosis without significant spinal canal stenosis. There is mild left neural foraminal narrowing at L4-L5 and mild left greater than right neural foraminal narrowing at L5-S1. Electronically signed by: Lety Hernandez MD 08/29/2024 09:33 AM [facility]
== END 2024-08-28 15:16 | disposition home or self-care (01) ==
LOC: HO.MRI 15:15
PROVIDERS: PCP Internal Medicine; Visit Provider Orthopaedic Surgery
DX: M21.371 Foot drop, right foot (principal)
CPT/HCPCS: 72148

== ENCOUNTER 2024-09-02 08:31 | Outpatient (AMB) | payer MEDICARE, BC, OTHER, SELFPAY ==
--- NOTE | 2024-09-02 08:44 | AM.OFFWIN_ITS ---
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 Patient Tobacco Use Status: Former Tobacco user Allergies nifedipine [NIFEDIPINE] Allergy (Unknown, Verified 09/02/24 08:47) UNKNOWN- DOES NOT REMEMBER Pt states no known allergy to Allergy (Unknown, Uncoded 09/02/24 08:47) n/a Do you need a note to return to daycare/school/sports/work: No HPI HPI Comments History of Present Illness Details History of Present Illness The patient is a 69-year-old female presenting with severe right leg pain and foot drop. The pain started approximately three weeks ago, initially perceived as a groin pull, but progressed to incapacitating leg pain. The pain radiates from the groin to the lopez and has been exacerbated by physical activity. The patient reports significant difficulty in maintaining physical positions, often needing to change locations every 45 minutes due to pain intensity. Initial management included a prescription of Tylenol for presumed arthritis, w hich proved ineffective. The patient visited the emergency department twice; on the first visit, she received a muscle relaxant, which provided temporary relief. On the second visit, she was prescribed prednisone. The prescribed dosage was a 5 day burst of 40 mg per day, but provided no significant relief. Dr. Lucio subsequently guided her through tapering prednisone. The patient also intermittently uses clorazepam without noted improvement. Dr. Lucio diagnosed foot drop, suspected to be related to radiculopathy due to possible nerve compression. An MRI was ordered, but the patient has yet to discuss results with Dr. Lucio. She is scheduled for a steroid injection on September 07 for pain management. [facility] Medical History Type 2 diabetes mellitus without complications Diverticulosis of large intestine without perforation or abscess without bl eeding 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 Patient Tobacco Use Status: Former Tobacco user Advance Directives Date on File: 07/03/22 service: No Current occupational status: retired Review of Systems Const All systems reviewed & are unremarkable except as noted in HPI and below Physical Exam Vital Signs: Last Vital Signs Pulse 92 09/02/24 08:46 BP 122/80 09/02/24 08:46 Pulse Ox 97 09/02/24 08:46 Oxygen Delivery Method Room Air 09/02/24 08:46 BMI result Body Mass Index 37.3 Const General: cooperative, healthy appearing, comfortable, no acute distress and well developed Orientation/consciousness: patient oriented x3 Limitations: ambulation with cane HEENT Head: Yes normal to inspection Ears: hearing grossly normal bilaterally General nose exam: Normal external nose present Face and sinus: Yes normal facial exam Eyes General: appearance normal, both eyes and all related structures Neck Neck: Yes normal visual inspection and Yes full ROM Resp Effort & Inspection: normal respiratory effort and able to speak in complete sentences Skin General skin exam: no rashes or lesions noted Neuro Other: Right foot drop noted with inability to dorsiflex the right foot. General: patient oriented x3 Extrem General: Yes normal to inspection Assessment & Plan Assessment & Plan (1) Right leg pain: Code(s): M79.604 - Pain in right leg Plan: Proceed with planned steroid injection on September 07 to address inflammation and provide pain relief. Called [facility] in attempt to get the patient evaluated and subsequent injection facilitated sooner than September 07. They are looking into it and will call the patient back if they are able to see her sooner. A short course of opioids (20 tablets) has been considered to provide temporary relief until the scheduled intervention, with an understanding of the risks, including potential for constipation and limited efficacy for neuropathic pain. Stressed to patient this will be the ONLY prescription for opioids that this clinic rights for the patient. As she can not take NSAIDs, has tried oral steroids and Tylenol with no relief, and she does have an appointment with pain management coming up. Continue evaluation to determine the source of neural compression, likely spinal in origin. Consider discussing MRI results with the ordering physician for further diagnostic clarity and recommendations. Patient was informed and verbally consented to the use of an ambient scribe for clinic note documentation during this visit. (2) Arthritis of right hip: Code(s): M16.11 - Unilateral primary osteoarthritis, right hip Plan: as above Plan RX for 15 tablets sent, the other one for 20 tabs was not sent. Medications: New oxycodone Partial Fill upon patient request. 5 mg PO Q8H PRN 20 tabs 0RF Pain oxycodone Partial Fill upon patient request. 5 mg PO Q8H PRN 15 tabs 0RF Pain Coding Level of Care Code Est Pt Level 4 (24059) Diagnoses Right leg pain M79.604 Arthritis of right hip M16.11
[2024-09-02 08:46] VITALS: BP 122/80; PULSE 92; O2SAT 97; BMI 37.3
--- OUTSIDE RECORDS SUMMARY | 2024-09-08 16:27 | XMS_ITS | Clinical Summary ---
Author Organization Unknown Care Team Providers Care Franchise Field Consultant Name Role Phone DEZ BLAS, YUNG Unavailable Unavailable KEVIN MIN, ANGELICA CHRISTENSEN Unavailable Terell FIELDS RN, SASCHA Unavailable Unavailable JUNIOR PT, MICHAEL Unavailable Unavailable BENJI SQUEEGEE FINISHER, RUDY Unavailable Unavailable Payers Payer Name Policy Type Policy Number Effective Date Expira tion Date MEDICARE.NGS.PDGM [id number] Problems Condition Name Condition Details Condition Category Status Onset Date Resolution Date Last Treatment Date Treating Clinician Comments COVID-19 Active 10-09 00:00: 00 ACUTE RESPIRATORY FAILURE WITH HYPOXIA Active 10-09 00:00: 00 UNSPECIFIED ATRIAL FIBRILLATION Active 10-09 00:00: 00 UNSPECIFIED ASTHMA, UNCOMPLICATE D Active 09-30 00:00: 00 TYPE 2 DIABETES MELLITUS WITHOUT COMPLICATION S Active 09-30 00:00: 00 ESSENTIAL (PRIMARY) HYPERTENSION Active 09-30 00:00: 00 HYPERLIPIDEM IA, UNSPECIFIED Active 09-30 00:00: 00 DEPENDENCE ON SUPPLEMENTAL OXYGEN Active 10-09 00:00: 00 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 Ordering Clinician Indication Dosage Frequency Signature (SIG) Comments Components brimonidine 0.15 % eye drops 2020-09 00:00: 00 Yes [id number] EYES Per instruc tions EVERY NIGHT AT BEDTIME Per instructio ns EVERY NIGHT AT BEDTIME (route: ophthalmic (eye)) Med Classific ation: Ophthalmi c Agents Eliquis 5 mg tablet 2022-0 1-14 00:00: 00 Yes [id number] AFIB 1 tablet 2 TIMES DAILY 1 tablet 2 TIMES DAILY (route: oral) Med Classific ation: Hematolog ical Agents atenolol 25 mg tablet 2020-09 00:00: 00 10-22 00:00 :00 No [id number] HTN 3 tablet DAILY 3 tablet DAILY (route: oral) Med Classific ation: Cardiovas cular Therapy Agents simvastatin 20 mg tablet 2020-09 00:00: 00 Yes [id number] HLD Per instruc tions EVERY DAY Per instructio ns EVERY DAY (route: oral) Med Classific ation: Cardiovas cular Therapy Agents clonidine HCl 0.1 mg tablet 10-02 00:00: 00 Yes [id number] HTN Per instruc tions TWICE DAILY Per instructio ns TWICE DAILY (route: oral) Med Classific ation: Cardiovas cular Therapy Agents hydralazine 25 mg tablet 10-14 00:00: 00 Yes [id number] HTN 1 tablet 3 TIMES DAILY 1 tablet 3 TIMES DAILY (route: oral) Med Classific ation: Cardiovas cular Therapy Agents bupropion HCl SR 100 mg tablet,12 hr sustained-r elease 2020-09 00:00: 00 Yes [id number] DEPRESSION Per instruc tions EVERY DAY Per instructio ns EVERY DAY (route: oral) Med Classific ation: Central Nervous System Agents lisinopril 40 mg tablet 2020-09 00:00: 00 Yes [id number] HTN 1 tablet EVERY DAY 1 tablet EVERY DAY (route: oral) Med Classific ation: Cardiovas cular Therapy Agents spironolact one 25 mg tablet 2020-09 00:00: 00 Yes [id number] HTN Per instruc tions EVERY DAY Per instructio ns EVERY DAY (route: oral) Med Classific ation: Cardiovas cular Therapy Agents paroxetine 40 mg tablet 2020-09 00:00: 00 Yes [id number] DEPRESSION Per instruc tions EVERY DAY Per instructio ns EVERY DAY (route: oral) Med Classific ation: Central Nervous System Agents carvedilol 12.5 mg tablet 10-14 00:00: 00 Yes [id number] AFIB 1 tablet 2 TIMES DAILY 1 tablet 2 TIMES DAILY (route: oral) Med Classific ation: Cardiovas cular Therapy Agents acetaminoph en 325 mg capsule 10-22 00:00: 00 Yes [id number] PAIN OR FEVER 2 capsule EVERY 6 HOURS 2 capsule EVERY 6 HOURS (route: oral) Med Classific ation: Analgesic , Anti-infl ammatory or Antipyret ic cholecalcif alexandr (vitamin D3) 25 mcg (1,000 unit) capsule 10-22 00:00: 00 Yes [id number] SUPPLEMENT 1 capsule DAILY 1 capsule DAILY (route: oral) Med Classific ation: Electroly te Balance-N utritiona l Products multivitami n tablet 10-22 00:00: 00 Yes [id number] SUPPLEMENT 1 tablet DAILY 1 tablet DAILY (route: oral) Med Classific ation: Electroly te Balance-N utritiona l Products O2 - OXYGEN 10-23 00:00: 00 Yes [id number] oxygenation 2 Liter O2 - CONTINUOUS 2 Liter O2 - CONTINUOUS (route: Oxygen) Med Classific ation: Medical Oxygen Vital Signs Vital Name Observation Time Observation Value Commen ts Temperature 2021-12-20 10:18:00.000 97.6 [degF] Temperature 2021-12-08 10:14:00.000 98.2 [degF] Temperature 2021-11-29 16:10:00.000 97.8 [degF] Temperature 2021-11-28 13:20:00.000 97.9 [degF] Temperature 2021-11-23 13:00:00.000 97.4 [degF] Temperature 2021-11-13 16:00:00.000 98.8 [degF] Temperature 2021-11-10 10:35:00.000 98.5 [degF] Temperature 2021-11-09 15:39:00.000 97.5 [degF] Temperature 2021-11-06 16:06:00.000 97.4 [degF] Temperature 2021-10-31 09:22:00.000 97.3 [degF] Temperature 2021-10-27 10:14:00.000 96.8 [degF] Temperature 2021-10-26 14:40:00.000 96.7 [degF] Temperature 2021-10-22 13:00:00.000 97.3 [degF] Height 2021-10-22 13:00:00.000 66 [in_us] Pulse 2021-12-20 10:18:00.000 73 /min Pulse 2021-12-08 10:14:00.000 67 /min Pulse 2021-11-29 16:10:00.000 64 /min Pulse 2021-11-28 13:20:00.000 62 /min Pulse 2021-11-23 13:00:00.000 67 /min Pulse 2021-11-16 15:39:00.000 67 /min Pulse 2021-11-13 16:00:00.000 60 /min Pulse 2021-11-10 10:35:00.000 74 /min Pulse 2021-11-09 15:39:00.000 60 /min Pulse 2021-11-06 16:06:00.000 60 /min Pulse 2021-10-31 09:22:00.000 62 /min Pulse 2021-10-27 10:14:00.000 67 /min Pulse 2021-10-26 14:40:00.000 62 /min Pulse 2021-10-22 13:00:00.000 72 /min O2 Saturation (%) 2021-12-20 10:19:00.000 96 % O2 Saturation (%) 2021-12-08 10:16:00.000 94 % O2 Saturation (%) 2021-11-29 16:10:00.000 96 % O2 Saturation (%) 2021-11-28 13:21:00.000 96 % O2 Saturation (%) 2021-11-23 13:00:00.000 94 % O2 Saturation (%) 2021-11-16 15:39:00.000 94 % O2 Saturation (%) 2021-11-13 16:00:00.000 97 % O2 Saturation (%) 2021-11-10 10:35:00.000 97 % O2 Saturation (%) 2021-11-09 15:39:00.000 96 % O2 Saturation (%) 2021-11-06 16:06:00.000 96 % O2 Saturation (%) 2021-10-31 09:22:00.000 95 % O2 Saturation (%) 2021-10-27 10:14:00.000 97 % O2 Saturation (%) 2021-10-26 14:40:00.000 98 % O2 Saturation (%) 2021-10-22 13:00:00.000 97 % Respirations 2021-12-20 10:18:00.000 18 /min Respirations 2021-12-08 10:14:00.000 18 /min Respirations 2021-11-29 16:10:00.000 18 /min Respirations 2021-11-28 13:20:00.000 18 /min Respirations 2021-11-23 13:00:00.000 18 /min Respirations 2021-11-16 15:39:00.000 18 /min Respirations 2021-11-13 16:00:00.000 18 /min Respirations 2021-11-10 10:35:00.000 18 /min Respirations 2021-11-09 15:39:00.000 18 /min Respirations 2021-11-06 16:06:00.000 18 /min Respirations 2021-10-31 09:22:00.000 18 /min Respirations 2021-10-27 10:14:00.000 18 /min Respirations 2021-10-26 14:40:00.000 18 /min Respirations 2021-10-22 13:00:00.000 20 /min Weight (lbs) 2021-10-22 13:00:00.000 240 [lb_av] Systolic Blood Pressure 2021-12-20 10:18:00.000 108 mm [Hg] Systolic Blood Pressure 2021-12-08 10:14:00.000 136 mm [Hg] Systolic Blood Pressure 2021-11-29 16:10:00.000 140 mm [Hg] Systolic Blood Pressure 2021-11-28 13:20:00.000 144 mm [Hg] Systolic Blood Pressure 2021-11-23 13:00:00.000 138 mm [Hg] Systolic Blood Pressure 2021-11-16 15:39:00.000 142 mm [Hg] Systolic Blood Pressure 2021-11-13 16:00:00.000 130 mm [Hg] Systolic Blood Pressure 2021-11-10 10:35:00.000 138 mm [Hg] Systolic Blood Pressure 2021-11-09 15:39:00.000 142 mm [Hg] Systolic Blood Pressure 2021-10-31 09:22:00.000 130 mm [Hg] Systolic Blood Pressure 2021-10-27 10:14:00.000 118 mm [Hg] Systolic Blood Pressure 2021-10-26 14:40:00.000 118 mm [Hg] Systolic Blood Pressure 2021-10-22 13:00:00.000 118 mm [Hg] Diastolic Blood Pressure 2021-12-20 10:18:00.000 68 mm [Hg] Diastolic Blood Pressure 2021-12-08 10:14:00.000 66 mm [Hg] Diastolic Blood Pressure 2021-11-29 16:10:00.000 80 mm [Hg] Diastolic Blood Pressure 2021-11-28 13:20:00.000 80 mm [Hg] Diastolic Blood Pressure 2021-11-23 13:00:00.000 68 mm [Hg] Diastolic Blood Pressure 2021-11-16 15:39:00.000 82 mm [Hg] Diastolic Blood Pressure 2021-11-13 16:00:00.000 74 mm [Hg] Diastolic Blood Pressure 2021-11-10 10:35:00.000 70 mm [Hg] Diastolic Blood Pressure 2021-11-09 15:39:00.000 80 mm [Hg] Diastolic Blood Pressure 2021-10-31 09:22:00.000 74 mm [Hg] Diastolic Blood Pressure 2021-10-27 10:14:00.000 70 mm [Hg] Diastolic Blood Pressure 2021-10-26 14:40:00.000 69 mm [Hg] Diastolic Blood Pressure 2021-10-22 13:00:00.000 58 mm [Hg] Plan of Treatment Planned Activity Planned Date Details Comments Future Scheduled Test SKILLED NU RSE TO ASSESS, EVALUATE, AND DEVELOP AN INDIVIDUALIZED PLAN OF CARE. AGENCY MAY ACCEPT ORDERS FROM CONSULTING PHYSICIANS DR. YUNG GARCES . SN TO OBSERVE/ASSESS RISK FOR FALLS AND INSTRUCT IN FALL PREVENTION, HOME SAFETY, MEDICATION MANAGEMENT, INFECTION PREVENTION, AND NUTRITION MANAGEMENT. SN MAY PERFORM O2 SATURATION LEVEL ON ADMISSION AND PRN TO ASSESS PATIENT, WITH NOTIFICATION TO THE PHYSICIAN IF SATURATION IS 90% IN THE ABSENCE OF MORE SPECIFIC PARAMETERS FROM THE PHYSICIAN. AGENCY MAY PERFORM A RESUMPTION OF CARE VISIT FOLLOWING ANY HOSPITAL ADMISSION. SKILLED NURSE TO ASSESS/EVALUATE CO-MORBID CONDITIONS AND ANY NEW CONDITIONS THAT PRESENT THEMSELVES DURING THIS EPISODE TO IDENTIFY CHANGES AND INTERVENE TO MINIMIZE COMPLICATIONS. [code = SKILLED NURSE TO ASSESS, EVALUATE, AND DEVELOP AN INDIVIDUALIZED PLAN OF CARE. AGENCY MAY ACCEPT ORDERS FROM CONSULTING PHYSICIANS DR. YUNG GARCES . SN TO OBSERVE/ASSESS RISK FOR FALLS AND INSTRUCT IN FALL PREVENTION, HOME SAFETY, MEDICATION MANAGEMENT, INFECTION PREVENTION, AND NUTRITION MANAGEMENT. SN MAY PERFORM O2 SATURATION LEVEL ON ADMISSION AND PRN TO ASSESS PATIENT, WITH NOTIFICATION TO THE PHYSICIAN IF SATURATION IS 90% IN THE ABSENCE OF MORE SPECIFIC PARAMETERS FROM THE PHYSICIAN. AGENCY MAY PERFORM A RESUMPTION OF CARE VISIT FOLLOWING ANY HOSPITAL ADMISSION. SKILLED NURSE TO ASSESS/EVALUATE CO-MORBID CONDITIONS AND ANY NEW CONDITIONS THAT PRESENT THEMSELVES DURING THIS EPISODE TO IDENTIFY CHANGES AND INTERVENE TO MINIMIZE COMPLICATIONS.] Future Scheduled Test MEDICATION MANAGEMENT; SKILLED NURSE TO REVIEW MEDICATIONS FOR INTERACTIONS, EFFECTIVENESS OF DRUG THERAPY, AND SIGNS/SYMPTOMS OF ADVERSE REACTIONS. MAY INSTRUCT AND REINFORCE MEDICATION TEACHING RELATED TO THE USE OF MEDICATIONS, DOSAGE, FREQUENCY, PURPOSE, SIDE EFFECTS, AND TO REPORT COMPLICATIONS. [code = MEDICATION MANAGEMENT; SKILLED NURSE TO REVIEW MEDICATIONS FOR INTERACTIONS, EFFECTIVENESS OF DRUG THERAPY, AND SIGNS/SYMPTOMS OF ADVERSE REACTIONS. MAY INSTRUCT AND REINFORCE MEDICATION TEACHING RELATED TO THE USE OF MEDICATIONS, DOSAGE, FREQUENCY, PURPOSE, SIDE EFFECTS, AND TO REPORT COMPLICATIONS.] Future Scheduled Test RISK FOR H OSPITALIZATION; SKILLED NURSE TO INSTRUCT PATIENT/CAREGIVER ON RISK FOR HOSPITALIZATION, TEACH SIGNS AND SYMPTOMS THAT PUT PATIENT AT RISK, WHEN TO NOTIFY NURSE OF COMPLICATIONS/DECLINE, AND WHEN TO CALL 911. SKILLED NURSE TO INSTRUCT PATIENT/CAREGIVER ON: SIGNS AND SYMPTOMS TO BE ON ALERT FOR EARLY INTERVENTION, PRIOR TO NEEDING EMERGENCY SERVICES CALL [facility] NURSE TO KEEP RESEARCH STUDY ASSISTANT SYMPTOM REPORT FOR VISIBLE REFERENCE NOTIFY SKILLED NURSE/PHYSICIAN FOR DECLINE IN STATS WHEN AND HOW TO CALL HOME HEALTH AGENCY FACILITATE PHYSICIAN FOLLOW UP APPOINTMENT IDENTIFY SOCIOECONOMIC CONCERNS AND MAKE APPROPRIATE REFERRAL NEEDED [code = RISK FOR HOSPITALIZATION; SKILLED NURSE TO INSTRUCT PATIENT/CAREGIVER ON RISK FOR HOSPITALIZATION, TEACH SIGNS AND SYMPTOMS THAT PUT PATIENT AT RISK, WHEN TO NOTIFY NURSE OF COMPLICATIONS/DECLINE, AND WHEN TO CALL 911. SKILLED NURSE TO INSTRUCT PATIENT/CAREGIVER ON: SIGNS AND SYMPTOMS TO BE ON ALERT FOR EARLY INTERVENTION, PRIOR TO NEEDING EMERGENCY SERVICES CALL [facility] NURSE TO KEEP RESEARCH STUDY ASSISTANT SYMPTOM REPORT FOR VISIBLE REFERENCE NOTIFY SKILLED NURSE/PHYSICIAN FOR DECLINE IN STATS WHEN AND HOW TO CALL HOME HEALTH AGENCY FACILITATE PHYSICIAN FOLLOW UP APPOINTMENT IDENTIFY SOCIOECONOMIC CONCERNS AND MAKE APPROPRIATE REFERRAL NEEDED] Future Scheduled Test RESPIRATOR Y SYSTEM MANAGEMENT; SKILLED NURSE TO ASSESS AND TEACH RELATED TO ALTERED RESPIRATORY STATUS TO MINIMIZE COMPLICATIONS AND REDUCE HOSPITALIZATION. [code = RESPIRATORY SYSTEM MANAGEMENT; SKILLED NURSE TO ASSESS AND TEACH RELATED TO ALTERED RESPIRATORY STATUS TO MINIMIZE COMPLICATIONS AND REDUCE HOSPITALIZATION.] Future Scheduled Test COVID-19 P OSITIVE/SYMPTOMATIC MANAGEMENT; SKILLED NURSE TO ASSESS AND TEACH SIGNS OF COVID-19 AND PROVIDE EARLY INTERVENTIONS TO MINIMIZE RISK OF HOSPITALIZATION. [code = COVID-19 POSITIVE/SYMPTOMATIC MANAGEMENT; SKILLED NURSE TO ASSESS AND TEACH SIGNS OF COVID-19 AND PROVIDE EARLY INTERVENTIONS TO MINIMIZE RISK OF HOSPITALIZATION.] Future Scheduled Test PNEUMONIA MANAGEMENT; SKILLED NURSE TO ASSESS AND TEACH SIGNS OF PNEUMONIA EXACERBATION AND PROVIDE EARLY INTERVENTIONS TO MINIMIZE RISK OF HOSPITALIZATION. [code = PNEUMONIA MANAGEMENT; SKILLED NURSE TO ASSESS AND TEACH SIGNS OF PNEUMONIA EXACERBATION AND PROVIDE EARLY INTERVENTIONS TO MINIMIZE RISK OF HOSPITALIZATION.] Future Scheduled Test OXYGEN THE RAPY; SKILLED NURSE TO INSTRUCT ON OXYGEN MANAGEMENT INCLUDING: ADMINISTRATION AT 2 L/MIN VIA NC CONTINUOUS/PRN FOR DYSPNEA SLO2 GOAL ABOVE 92%, CARE OF EQUIPMENT AND SAFETY. [code = OXYGEN THERAPY; SKILLED NURSE TO INSTRUCT ON OXYGEN MANAGEMENT INCLUDING: ADMINISTRATION AT 2 L/MIN VIA NC CONTINUOUS/PRN FOR DYSPNEA SLO2 GOAL ABOVE 92%, CARE OF EQUIPMENT AND SAFETY.] Future Scheduled Test CARDIOVASC ULAR SYSTEM; SKILLED NURSE TO ASSESS AND TEACH RELATED TO ALTERED CARDIOVASCULAR STATUS TO MINIMIZE COMPLICATIONS AND REDUCE HOSPITALIZATION. [code = CARDIOVASCULAR SYSTEM; SKILLED NURSE TO ASSESS AND TEACH RELATED TO ALTERED CARDIOVASCULAR STATUS TO MINIMIZE COMPLICATIONS AND REDUCE HOSPITALIZATION.] Future Scheduled Test HYPERTENSI ON MANAGEMENT; SKILLED NURSE TO ASSESS/TEACH WARNING SIGNS AND SYMPTOMS TO AVOID HOSPITALIZATION. [code = HYPERTENSION MANAGEMENT; SKILLED NURSE TO ASSESS/TEACH WARNING SIGNS AND SYMPTOMS TO AVOID HOSPITALIZATION.] Future Scheduled Test ATRIAL FIB RILLATION MANAGEMENT; SKILLED NURSE TO ASSESS/TEACH WARNING SIGNS AND SYMPTOMS TO AVOID HOSPITALIZATION. [code = ATRIAL FIBRILLATION MANAGEMENT; SKILLED NURSE TO ASSESS/TEACH WARNING SIGNS AND SYMPTOMS TO AVOID HOSPITALIZATION.] Future Scheduled Test ANTICOAGUL ATION MANAGEMENT; SKILLED NURSE TO ASSESS, TEACH, AND MONITOR EFFECTIVENESS OF ANTICOAGULATION THERAPY. SKILLED NURSE TO INSTRUCT ON SIGNS AND SYMPTOMS OF BLEEDING/ADVERSE REACTIONS TO REPORT TO PHYSICIAN. [code = ANTICOAGULATION MANAGEMENT; SKILLED NURSE TO ASSESS, TEACH, AND MONITOR EFFECTIVENESS OF ANTICOAGULATION THERAPY. SKILLED NURSE TO INSTRUCT ON SIGNS AND SYMPTOMS OF BLEEDING/ADVERSE REACTIONS TO REPORT TO PHYSICIAN. ] Future Scheduled Test PAIN MANAG EMENT; SKILLED NURSE TO OBSERVE, ASSESS, AND PROVIDE EDUCATION ON PAIN MANAGEMENT TECHNIQUES. [code = PAIN MANAGEMENT; SKILLED NURSE TO OBSERVE, ASSESS, AND PROVIDE EDUCATION ON PAIN MANAGEMENT TECHNIQUES. ] Future Scheduled Test FALL REDUC TION MANAGEMENT; NURSING TO PROVIDE SKILLED ASSESSMENT, EDUCATION, AND INTERVENTION TO IDENTIFY FALL RISK FACTORS SUCH MEDICATIONS THAT MAY CAUSE DIZZINESS, CHRONIC DISEASES, PSYCHOLOGICAL FACTORS, AND EMPOWER/EDUCATE PATIENT/CAREGIVER TO MINIMIZE FALL RISK. [code = FALL REDUCTION MANAGEMENT; NURSING TO PROVIDE SKILLED ASSESSMENT, EDUCATION, AND INTERVENTION TO IDENTIFY FALL RISK FACTORS SUCH MEDICATIONS THAT MAY CAUSE DIZZINESS, CHRONIC DISEASES, PSYCHOLOGICAL FACTORS, AND EMPOWER/EDUCATE PATIENT/CAREGIVER TO MINIMIZE FALL RISK.] Future Scheduled Test PHYSICAL T HERAPIST TO EVALUATE FOR STRENGTH AND ENDURANCE [code = PHYSICAL THERAPIST TO EVALUATE FOR STRENGTH AND ENDURANCE ] Future Scheduled Test OCCUPATION AL THERAPIST TO EVALUATE FOR ADL AND ENDURANCE [code = OCCUPATIONAL THERAPIST TO EVALUATE FOR ADL AND ENDURANCE ] Future Scheduled Test PRN VISITS ; PATIENT REQUIRES 3 PRN SHELTER VISITS FOR COMPLICATIONS RELATED TO COVID-19 PNEUMONIA [code = PRN VISITS; PATIENT REQUIRES 3 PRN SHELTER VISITS FOR COMPLICATIONS RELATED TO COVID-19 PNEUMONIA ] Goal 2021-12-20 Patient Goal - G ET STRONGER AND OFF OXYGEN Goal Provider Goal - A PLAN OF CARE WILL BE ESTABLISHED THAT MEETS THE PATIENTS NEEDS. PATIENT WILL DEMONSTRATE OXYGEN SATURATION WITHIN NORMAL LIMITS OR PATIENTS OPTIMAL LEVEL ESTABLISHED BY THE PHYSICIAN THROUGHOUT CARE. CHANGES TO CO-MORBID CONDITIONS AND ANY NEW CONDITIONS WILL BE IDENTIFIED AND REPORTED TO THE PHYSICIAN. Goal Provider Goal - PATIENT/CAREGIVER TO VERBALIZE, AND CONSISTENTLY DEMONSTRATE EFFECTIVE, SAFE MANAGEMENT OF MEDICATION INCLUDING KNOWLEDGE OF EFFECTIVENESS, POTENTIAL SIDE EFFECTS AND DRUG REACTIONS AND WHEN TO CONTACT THE APPROPRIATE CARE PROVIDER. PATIENT/CAREGIVER WILL BE ABLE TO VERBALIZE UNDERSTANDING OF MEDICATION REGIMEN AND ACCURATELY TAKE MEDICATIONS PRESCRIBED WITHOUT ADVERSE EFFECTS BY 12/20/22 Goal Provider Goal - PATIENT/CAREGIVER WILL VERBALIZE UNDERSTANDING OF SIGNS AND SYMPTOMS THAT PUT THE PATIENT AT RISK FOR HOSPITALIZATION, WHEN TO NOTIFY SN OF COMPLICATIONS/DECLINE AND WHEN TO CALL 911. Goal Provider Goal - PATIENT / CAREGIVER WILL VERBALIZE/DEMONSTRATE UNDERSTANDING OF MEASURES TO MANAGE ALTERED RESPIRATORY STATUS BY END OF EPISODE. Goal Provider Goal - PATIENT / CAREGIVER WILL VERBALIZE/DEMONSTRATE AN ABILITY TO ADHERE TO COVID-19 SELF-MANAGEMENT TO MINIMIZE COMPLICATIONS AND AVOID HOSPITALIZATION BY END OF EPISODE. Goal Provider Goal - PATIENT / CAREGIVER WILL VERBALIZE/DEMONSTRATE AN ABILITY TO ADHERE TO PNEUMONIA SELF-MANAGEMENT TO MINIMIZE COMPLICATIONS AND AVOID HOSPITALIZATION BY END OF EPISODE. Goal Provider Goal - PATIENT/CAREGIVER WILL VERBALIZE/DEMONSTRATE UNDERSTANDING OF CARE AND MANAGEMENT OF OXYGEN THERAPY BY END OF EPISODE Goal Provider Goal - PATIENT / CAREGIVER WILL VERBALIZE/DEMONSTRATE UNDERSTANDING OF MEASURES TO MANAGE ALTERED CARDIOVASCULAR STATUS BY 12/20/22 Goal Provider Goal - PATIENT / CAREGIVER WILL VERBALIZE/DEMONSTRATE AN ABILITY TO ADHERE TO SELF-MANAGEMENT OF HTN TO MINIMIZE COMPLICATIONS AND AVOID HOSPITALIZATION BY END OF EPISODE. Goal Provider Goal - PATIENT / CAREGIVER WILL VERBALIZE/DEMONSTRATE AN ABILITY TO ADHERE TO SELF-MANAGEMENT OF ATRIAL FIBRILLATION TO MINIMIZE COMPLICATIONS AND AVOID HOSPITALIZATION BY END OF EPISODE. Goal Provider Goal - INEFFECTIVE ANTICOAGULATION THERAPY WILL BE IDENTIFIED AND PROMPTLY REPORTED TO THE PHYSICIAN. PATIENT / CAREGIVER WILL VERBALIZE UNDERSTANDING OF MEASURES TO MAINTAIN EFFECTIVE ANTICOAGULATION THERAPY BY 12/20/21 Goal Provider Goal - PATIENT / CAREGIVER WILL VERBALIZE / DEMONSTRATE UNDERSTANDING OF PAIN CONTROL MEASURES BY DISCHARGE Goal Provider Goal - PATIENT/CAREGIVER ABLE TO IDENTIFY FALL RISK FACTORS AND IMPLEMENT STRATEGIES TO MINIMIZE FALL RISK. PATIENT/CAREGIVER WILL VERBALIZE/DEMONSTRATE AN ABILITY TO ADHERE TO FALL REDUCTION SELF MANAGEMENT AND LIFE-STYLE CHANGES AT DISCHARGE. PERSONAL GOAL(S) STATED BY PATIENT/CAREGIVER WILL BE MET BY 12/20/21 Goal Provider Goal - Goal Provider Goal - Goal Provider Goal - Reason for Visit [facility] THE COMM[facility]ITY Encounters Start Date/Time End Date/Time Encounter Type Admission Type Attending [facility] Care Department Encounter ID Discharge Date Discharge Status Discharge Condition Discharge Reason Percent Goals Met 2021-10-22 00:00:00 2021-12-20 00:00:00 Outpatient NEW ADMISSION SASCHA FIELDS [facility] [id number] 2021-12-20 00:00:00 DISCHARGE TO HOME OR SELF CARE INDEPENDEN T IN THE COMMUNITY HH OR [facility]- GOALS MET 31.58
== END 2024-09-02 09:42 | disposition home or self-care (01) ==
PROVIDERS: PCP Internal Medicine; Visit Provider Physician Assistant
DX: M79.604 Pain in right leg (principal); M16.11 Unilateral primary osteoarthritis, right hip

== ENCOUNTER → 2024-09-02 08:31 | Outpatient (BNVA) | payer MEDICARE, BC, OTHER, SELFPAY | PROVIDERS: PCP Internal Medicine; Visit Provider Physician Assistant | DX: M79.604 Pain in right leg (principal); M16.11 Unilateral primary osteoarthritis, right hip | CPT/HCPCS: 99212 ==

== ENCOUNTER 2024-09-05 07:22 | Emergency (ER) | payer MEDICARE, BC, OTHER, SELFPAY ==
--- NOTE | ~2024-09-05 | XR_ITS ---
EXAMINATION: XR CHEST CLINICAL INFORMATION: cp COMPARISON: Chest 12/10/2023 TECHNIQUE: Frontal view of the chest was obtained. FINDINGS: The lungs are well-expanded and clear acute process. The heart size and pulmonary vascularity is normal. No gross bony abnormality seen. XR/XR chest 1V IMPRESSION: Unremarkable chest examination. Electronically signed by: Rashad Angeles MD 09/05/2024 11:14 AM ROHAN
--- NOTE | 2024-09-05 07:26 | ECG_ITS ---
Test Reason : chest pain Blood Pressure : / mmHG Vent. Rate : 096 BPM Atrial Rate : 096 BPM P-R Int : 224 ms QRS Dur : 098 ms QT Int : 358 ms P-R-T Axes : 056 133 091 degrees QTc Int : 452 ms Sinus rhythm with 1st degree A-V block Left posterior fascicular block Abnormal ECG When compared with ECG of 10-OCT-2021 12:10, Sinus rhythm has replaced Atrial fibrillation Left posterior fascicular block is now Present T wave inversion no longer evident in Inferior leads T wave inversion less evident in Anterolateral leads Referred By: Generic ED Physician Electronically Signed By:Rosendo Peng
[2024-09-05 07:32] VITALS: BP 131/74; PULSE 100; RESP 19; TEMP 36.6; O2SAT 96; BMI 37.1
[2024-09-05 07:58] VITALS: PULSE 93
[2024-09-05 07:59] VITALS: BP 123/87; PULSE 93; RESP 14; TEMP 36.8; O2SAT 95
[2024-09-05 07:59] LABS: MANUAL DIFF FLAG NO
[2024-09-05 08:02] LABS: Basophils Absolute Auto 0.1 X10*3/uL (0.0-0.2); Basophils Percent Auto 0.6 % (0-2); Eosinophils Absolute Auto 0.2 X10*3/uL (0.0-0.4); Eosinophils Percent Auto 1.8 % (0-4); Hematocrit 45.1 % (37.0-47.0); Hemoglobin 14.6 g/dl (12.0-16.0); Imm Gran Abs Auto 0.06 X10*3/uL (0.00-0.03); Imm Gran Pct Auto 0.6 % (0.0-0.4); Lymphocytes Absolute Auto 2.9 X10*3/uL (1.2-4.9); Lymphocytes Percent Auto 28.6 % (20-40); Mean Corpuscular HGB Conc 32.4 g/dl (31.0-35.0); Mean Corpuscular Hemoglobin 28.8 pg (27.0-33.0); Mean Platelet Volume 8.9 fL (9.4-12.3); Monocytes Absolute Auto 0.9 X10*3/uL (0.1-1.2); Monocytes Percent Auto 9.1 % (2-11); Neutrophils Absolute Auto 5.9 x10*3/uL (2.0-8.3); Neutrophils Percent Auto 59.3 % (45-73); Platelet Count 243 X10*3/uL (160-400); Red Blood Count 5.07 X10*6/uL (4.20-5.50); Red Cell Distribution Width 14.6 % (11.0-16.0)
--- NOTE | 2024-09-05 08:04 | PC.NURSE ---
Pt. reports slightly decreased sensation to the right foot
[2024-09-05 08:21] LABS: Alanine Aminotransferase 32 U/L (0-31); Albumin Level 3.7 g/dL (3.5-5.0); Alkaline Phosphatase 54 U/L (39-117); Anion Gap 13 (12-20); Aspartate Amino Transferase 21 U/L (5-31); Bilirubin Total 0.6 mg/dL (0.0-1.0); Blood Urea Nitrogen 21 mg/dL (9-16); Calcium 8.8 mg/dL (8.4-10.2); Carbon Dioxide 26 mmol/L (22-29); Chloride 105 mmol/L (96-108); Creatinine Clr Calc Pharmacy 91.2; Estimated Glomerular Filt Rate > 60; Glucose Random 168 mg/dL (60-115); Potassium 4.4 mmol/L (3.3-5.1); Sodium 140 mmol/L (135-145); Total Protein 6.5 g/dL (6.5-8.0)
[2024-09-05 08:28] LABS: Troponin-I High Sensitivity 8.2 ng/L (<3.5-17.0)
--- NOTE | 2024-09-05 08:54 | ED.CHESTPAIN ---
HPI - Chest Pain General Chief Complaint: Chest Pain Stated Complaint: chest discomfort Time Seen by Provider: 09/05/24 08:53 Source: patient and family Mode of arrival: ambulatory Limitations: no limitations History of Present Illness ED Provider: DONOVAN Hart HPI narrative: This is a 69-year-old female past medical history significant for obesity, hypertension, paroxysmal AFib on Eliquis, asthma, hyperlipidemia, review of panic disorder, diastolic dysfunction presenting to the emergency department with sudden onset substernal chest pain that started at 05:30 which woke her from her sleep she reports some pressure/palpitations localized in the center of her chest without radiation it lasted a few minutes, she took clonazepam and this seemed to help, pain went down to 0/10. At this time she is asymptomatic. She does not report associated shortness of breath with this. In the triage note she does report right leg pain for the past 3 weeks, and I asked her about this she tells me it has been 4 weeks of leg pain and she is currently being followed by a specialist for this. She has also seen [facility] walk-in multiple times for this issue in his taking oxycodone for pain. This is not an acute complaint and she is not here for that today. She denies fevers, chills, recent illness, nausea, vomiting, abdominal pain, headache, vision changes, dizziness, weakness, chest pain and shortness of breath at this time Related Data Home Medications ?Medication ?Instructions ?Recorded ?Confirmed brimonidine 0.15 % eye drops 1 drp ophthalmic (eye) BEDTIME 10/09/21 06/03/24 cholecalciferol (vitamin D3) 25 25 mcg PO BEDTIME 10/09/21 06/03/24 mcg (1,000 unit) tablet multivitamin 1 tab PO BEDTIME 10/09/21 05/15/24 clonidine HCl 0.1 mg tablet 0.1 mg PO BID 11/07/21 06/03/24 lisinopril 40 mg tablet 40 mg PO BEDTIME 11/07/21 06/03/24 simvastatin 20 mg tablet 20 mg PO BEDTIME 11/07/21 06/03/24 latanoprost 0.005 % eye drops 0 drp ophthalmic (eye) 08/28/22 06/03/24 brimonidine 0.2 % eye drops drp ophthalmic (eye) 06/03/24 06/03/24 Previous Rx's ?Medication ?Instructions ?Recorded clonazepam 0.5 mg tablet 0.5 mg PO DAILY PRN Anxiety #30 01/22/24 tabs spironolactone 25 mg tablet 25 mg PO DAILY #90 tabs 05/08/24 carvedilol 12.5 mg tablet 12.5 mg PO BID 90 days #180 tabs 05/15/24 bupropion HCl 100 mg tablet,12 hr 100 mg PO DAILY #90 tabs 06/03/24 sustained-release paroxetine HCl 40 mg tablet (Paxil) 40 mg PO DAILY #90 tabs 06/03/24 apixaban 5 mg tablet (Eliquis) 5 mg PO BID #180 tabs 08/10/24 hydralazine 25 mg tablet 25 mg PO TID #270 tabs 08/10/24 cyclobenzaprine 5 mg tablet 5 mg PO Q8H PRN pain (scale score 08/18/24 7-10) 5 days #14 tabs lidocaine 5 % topical patch 1 patch topical DAILY PRN pain #30 08/18/24 (Lidoderm) ea acetaminophen 500 mg tablet 1,000 mg (2 x 500 mg) PO Q6H PRN 08/20/24 (Tylenol Extra Strength) pain #30 tabs prednisone 20 mg tablet 40 mg (2 x 20 mg) PO DAILY #10 tabs 08/20/24 methylprednisolone 4 mg tablets in 4 mg PO DAILY #21 ea 08/25/24 a dose pack (Medrol (Juan)) oxycodone 5 mg tablet 5 mg PO Q8H PRN Pain #15 tabs 09/02/24 Allergies Allergy/AdvReac Type Severity Reaction Status Date / Time nifedipine [NIFEDIPINE] Allergy Unknown UNKNOWN- Verified 09/05/24 07:36 DOES NOT REMEMBER Pt states no known allergy to Allergy Unknown n/a Uncoded 09/02/24 08:47 Review of Systems Review of Systems: Yes all other systems are reviewed and are negative PMFSH Past Medical History Attestation statement: The following information was validated with the patient. 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 Patient Tobacco Use Status: Former Tobacco user Smoked in Last 30 Days: No Use of substances other than those prescribed or required for medical reasons: No Advance Directives: Yes Advance Directives on File: Yes Advance Directives Date on File: 07/03/22 Do you have a plan to hurt others: No Plan service: No Current occupational status: retired Physical Exam Vital Signs: Vital Signs: Last Vital Signs Temp 97.8 F 09/05/24 12:51 Pulse 90 09/05/24 12:51 Resp 16 09/05/24 12:51 BP 142/82 H 09/05/24 12:51 Pulse Ox 96 09/05/24 12:51 O2 Del Method Room Air 09/05/24 12:51 BMI result Body Mass Index 37.1 vss Appearance: Alert.? Oriented X3.? No acute distress.? Head: Normocephalic, atraumatic, no step-offs or deformities Eyes: Pupils equal, round and reactive to light.? Neck: Normal inspection.? Neck supple.? CVS: Normal heart rate and rhythm.? Pulses normal.? Respiratory: No respiratory distress.? Breath sounds normal.? Abdomen: Soft and nontender.? Skin: Skin warm and dry.? Normal skin color.? Normal skin turgor.? Extremities: No lower extremity edema.? No calf ttp. 5/5 strength to bilateral upper and lower extremities Neuro: Oriented X 3.? No motor deficit.? No sensory deficit. CN 2-12 intact Course Reevaluation(s) Reevaluation #1: CBC with no acute findings . Chemistry with mild elevation in BUN however this appears to be around patient's baseline. Second troponin ordered, x-ray ordered. Time: 08:59 Medical Decision Making Medical Decision Making [facility] Narrative: 69-year-old female presents with episode of chest pain this morning that has since subsided. Currently reporting 0/10 pain. Physical exam benign. History and physical exam concerning for possible AFib versus dysrhythmia. Unlikely ACS, PE, dissection,AAA. I do not suspect CHF. Plan labs, imaging Differential Diagnosis Differential Diagnoses: The differential diagnosis associated with the presentation includes (History and physical exam concerning for possible AFib versus dysrhythmia. Unlikely ACS, PE, dissection,AAA. I do not suspect CHF.) Admission/Observation Consideration of admission/observation: Escalation of care including admission/observation considered Lab Data [facility] Lab Attestation statement: I reviewed the patient's lab results. 09/05/24 07:54 09/05/24 07:54 Labs: Lab Results 09/05/24 09/05/24 09/05/24 Range/Units 07:54 09:24 11:02 WBC 10.0 (4.8-10.8) X10*3/uL RBC 5.07 (4.20-5.50) X10*6/uL Hgb 14.6 (12.0-16.0) g/dl Hct 45.1 (37.0-47.0) % MCV 89.0 (80.0-98.0) fL MCH 28.8 (27.0-33.0) pg MCHC 32.4 (31.0-35.0) g/dl RDW 14.6 (11.0-16.0) % Plt Count 243 (160-400) X10*3/uL MPV 8.9 L (9.4-12.3) fL Immature Gran % (Auto) 0.6 H (0.0-0.4) % Neut % (Auto) 59.3 (45-73) % Lymph % (Auto) 28.6 (20-40) % [place] % (Auto) 9.1 (2-11) % Eos % (Auto) 1.8 (0-4) % Baso % (Auto) 0.6 (0-2) % Lymph # (Auto) 2.9 (1.2-4.9) X10*3/uL [place] # (Auto) 0.9 (0.1-1.2) X10*3/uL Eos # (Auto) 0.2 (0.0-0.4) X10*3/uL Baso # (Auto) 0.1 (0.0-0.2) X10*3/uL Abs Immat Gran (auto) 0.06 H (0.00-0.03) X10*3/uL Absolute Neuts (auto) 5.9 (2.0-8.3) x10*3/uL Absolute Nucleated RBC 0.000 (0.0-0.012) X10*3/uL Nucleated RBC % (auto) 0.0 (0.0-0.2) /100WBC Hold Blue Top SEE NOTE Sodium 140 (135-145) mmol/L Potassium 4.4 (3.3-5.1) mmol/L Chloride 105 (96-108) mmol/L Carbon Dioxide 26 (22-29) mmol/L Anion Gap 13 (12-20) BUN 21 H (9-16) mg/dL Creatinine 0.69 (0.5-1.4) mg/dL Estim Creat Clear Calc 91.2 Estimated GFR > 60 Random Glucose 168 H (60-115) mg/dL Calcium 8.8 D (8.4-10.2) mg/dL Total Bilirubin 0.6 (0.0-1.0) mg/dL AST 21 (5-31) U/L ALT 32 H (0-31) U/L Alkaline Phosphatase 54 (39-117) U/L Troponin I High Sens 8.2 6.5 (<3.5-17.0) ng/L B-Natriuretic Peptide 16 (<100) pg/mL Total Protein 6.5 (6.5-8.0) g/dL Albumin 3.7 (3.5-5.0) g/dL Urine Color Yellow Urine Appearance Clear Urine pH 6.5 (5.0-9.0) Ur Specific [place] 1.025 (1.005-1.025) Urine Protein Negative (Neg-Trace) mg/dL Urine Glucose (UA) Negative (Negative) mg/dL Urine Ketones Negative (Negative) mg/dL Urine Blood Negative (Negative) Urine Nitrite Negative (Negative) Ur Leukocyte Esterase Negative (Negative) Independent Interpretation I performed an independent interpretation of an: EKG (Vent. Rate : 096 BPM Atrial Rate : 096 BPM P-R Int : 224 ms QRS Dur : 098 ms QT Int : 358 ms P-R-T Axes : 056 133 091 degrees QTc Int : 452 ms Sinus rhythm with 1st degree A-V block Left posterior fascicular block Abnormal ECG When compared with ECG of 10-OCT-2021 12:1) and Plain X-Ray Radiology Impression Discussion of test interpretation with radiology: I have reviewed the radiologist's reading. Independent Historian Clinical information obtained from an independent historian. History obtained from or confirmed by: Spouse External Record Review External record reviewed: Inpatient record, Office record, Outpatient record, Prior outpatient labs, Prior outpatient radiology and Primary care record Chronic Conditions Patient?s care impacted by: Other (see hpi ) Critical Care Time Critical Care Time Critical Care Time: No Discharge Plan Discharge Clinical Impression: Chest pain, First degree heart block Patient Disposition: Home, Self-Care Instructions: Chest Pain (ED), Heart Block (ED) Additional Instructions: Take your medications as prescribed. If you were prescribed antibiotics today, it is important that you take your medication to their entirety, do not skip any doses, do not finish them early. Follow-up with your primary care provider this week. Return to the emergency department with new or worsening symptoms. Such as fevers, chills, chest pain, shortness of breath, nausea, vomiting, dizziness, headache, vision changes, lethargy In case of emergency call 911 Please follow-up with your primary care provider as well as Cardiology within the next 2-3 days. XR/XR chest 1V IMPRESSION: Unremarkable chest examination. your cardiac enzymes looked good. Prescriptions: No Action spironolactone 25 mg tablet 25 mg PO DAILY Qty: 90 3RF Eliquis 5 mg tablet 5 mg PO BID Qty: 180 3RF hydralazine 25 mg tablet 25 mg PO TID Qty: 270 3RF methylprednisolone [Medrol (Juan)] 4 mg tablets,dose pack 4 mg PO DAILY Qty: 21 0RF brimonidine 0.15 % drops 1 drp ophthalmic (eye) BEDTIME multivitamin Tablet 1 tab PO BEDTIME cholecalciferol (vitamin D3) 25 mcg (1,000 unit) Tablet 25 mcg PO BEDTIME clonidine HCl 0.1 mg tablet 0.1 mg PO BID lisinopril 40 mg tablet 40 mg PO BEDTIME simvastatin 20 mg tablet 20 mg PO BEDTIME lidocaine [Lidoderm] 5 % adhesive patch,medicated 1 patch topical DAILY MDD remove after 12 hours PRN (Reason: pain) Qty: 30 0RF Rx Instructions: leave on most painful area for up to 12 hrs cyclobenzaprine 5 mg tablet 5 mg PO Q8H PRN (Reason: pain (scale score 7-10)) 5 Days Qty: 14 0RF prednisone 20 mg tablet 40 mg PO DAILY Qty: 10 0RF acetaminophen [Tylenol Extra Strength] 500 mg tablet 1,000 mg PO Q6H PRN (Reason: pain) Qty: 30 0RF latanoprost 0.005 % drops 0 drp ophthalmic (eye) carvedilol 12.5 mg tablet 12.5 mg PO BID 90 Days Qty: 180 1RF oxycodone 5 mg tablet 5 mg PO Q8H PRN (Reason: Pain) Qty: 15 0RF Rx Instructions: Partial Fill upon patient request. clonazepam 0.5 mg tablet 0.5 mg PO DAILY PRN (Reason: Anxiety) Qty: 30 2RF brimonidine 0.2 % drops ophthalmic (eye) bupropion HCl 100 mg tablet sustained-release 12 hr 100 mg PO DAILY Qty: 90 1RF paroxetine HCl [Paxil] 40 mg tablet 40 mg PO DAILY Qty: 90 1RF Referrals: [facility] [Provider Group] - 2 days Interventions: ED Discharge Assessment Last Done: 09/05/24 12:51 Print Language: Dominican
--- NOTE | 2024-09-05 09:09 | MHC.EDTECH ---
pt ambulated to and from bathroom using personal cane with steady gaiat. no compliants were given at this time
[2024-09-05 09:31] LABS: Appearance Urine Clear; Color Urine Yellow; Glucose Urine UA Negative (Negative); Leukocyte Esterase Urine Negative (Negative); Nitrite Urine Negative (Negative); PH 6.5 (5.0-9.0); Specific Gravity - Urine 1.025 (1.005-1.025); Urine Blood Negative (Negative); Urine Ketones Negative (Negative); Urine Protein Negative (Neg-Trace)
[2024-09-05 09:42] LABS: B Type Natriuretic Peptide 16 pg/mL (<100)
[2024-09-05 10:19] VITALS: BP 134/79; PULSE 81; RESP 20; TEMP 36.5; O2SAT 95
[2024-09-05 11:38] LABS: Troponin-I High Sensitivity 6.5 ng/L (<3.5-17.0)
[2024-09-05 12:20] VITALS: BP 142/82; PULSE 90; RESP 16; TEMP 36.6; O2SAT 96
[2024-09-05 12:51] VITALS: BP 142/82; PULSE 90; RESP 16; TEMP 36.6; O2SAT 96
--- OUTSIDE RECORDS SUMMARY | 2024-09-09 11:38 | XMS_ITS | Clinical Summary ---
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 Active 10-09 [...] % eye drops 2020-09 00:00: 00 Yes [id number] EYES Per instruc tions EVERY NIGHT AT BEDTIME Per instructio ns EVERY NIGHT AT BEDTIME (route: ophthalmic (eye)) Med Classific ation: Ophthalmi c Agents Eliquis 5 mg tablet 2022-0 1-14 00:00: 00 Yes [id number] AFIB 1 tablet 2 TIMES DAILY 1 tablet 2 TIMES DAILY (route: oral) Med Classific ation: Hematolog ical Agents atenolol 25 mg tablet 2020-09 00:00: 00 10-22 00:00 :00 No [id number] HTN 3 tablet DAILY 3 tablet DAILY (route: oral) Med Classific ation: Cardiovas cular Therapy Agents simvastatin 20 mg tablet 2020-09 00:00: 00 Yes [id number] HLD Per instruc tions EVERY DAY Per instructio ns EVERY DAY (route: oral) Med Classific ation: Cardiovas cular Therapy Agents clonidine HCl 0.1 mg tablet 10-02 00:00: 00 Yes [id number] HTN Per instruc tions TWICE DAILY Per instructio ns TWICE DAILY (route: oral) Med Classific ation: Cardiovas cular Therapy Agents hydralazine 25 mg tablet 10-14 00:00: 00 Yes [id number] HTN 1 tablet 3 TIMES DAILY 1 tablet 3 TIMES DAILY (route: oral) Med Classific ation: Cardiovas cular Therapy Agents bupropion HCl SR 100 mg tablet,12 hr sustained-r elease 2020-09 00:00: 00 Yes [id number] DEPRESSION Per instruc tions EVERY DAY Per instructio ns EVERY DAY (route: oral) Med Classific ation: Central Nervous System Agents lisinopril 40 mg tablet 2020-09 00:00: 00 Yes [id number] HTN 1 tablet EVERY DAY 1 tablet EVERY DAY (route: oral) Med Classific ation: Cardiovas cular Therapy Agents spironolact one 25 mg tablet 2020-09 00:00: 00 Yes [id number] HTN Per instruc tions EVERY DAY Per instructio ns EVERY DAY (route: oral) Med Classific ation: Cardiovas cular Therapy Agents paroxetine 40 mg tablet 2020-09 00:00: 00 Yes [id number] DEPRESSION Per instruc tions EVERY DAY Per instructio ns EVERY DAY (route: oral) Med Classific ation: Central Nervous System Agents carvedilol 12.5 mg tablet 10-14 00:00: 00 Yes [id number] AFIB 1 tablet 2 TIMES DAILY 1 tablet 2 TIMES DAILY (route: oral) Med Classific ation: Cardiovas cular Therapy Agents acetaminoph en 325 mg capsule 10-22 00:00: 00 Yes [id number] PAIN OR FEVER 2 capsule EVERY 6 HOURS 2 capsule EVERY 6 HOURS (route: oral) Med Classific ation: Analgesic , Anti-infl ammatory or Antipyret ic cholecalcif alexandr (vitamin D3) 25 mcg (1,000 unit) capsule 10-22 00:00: 00 Yes [id number] SUPPLEMENT 1 capsule DAILY 1 capsule DAILY (route: oral) Med Classific ation: Electroly te Balance-N utritiona l Products multivitami n tablet 10-22 00:00: 00 Yes [id number] SUPPLEMENT 1 tablet DAILY 1 tablet DAILY (route: oral) Med Classific ation: Electroly te Balance-N utritiona l Products O2 - OXYGEN 10-23 00:00: 00 Yes [id number] oxygenation 2 Liter O2 - CONTINUOUS 2 [...] EMERGENCY SERVICES CALL [facility] NURSE TO KEEP LAMINATION ASSEMBLER SYMPTOM REPORT FOR VISIBLE REFERENCE NOTIFY SKILLED [...] EMERGENCY SERVICES CALL [facility] NURSE TO KEEP LAMINATION ASSEMBLER SYMPTOM REPORT FOR VISIBLE REFERENCE NOTIFY SKILLED [...] PRN VISITS ; PATIENT REQUIRES 3 PRN MCC VISITS FOR COMPLICATIONS RELATED TO COVID-19 PNEUMONIA [code = PRN VISITS; PATIENT REQUIRES 3 PRN MCC VISITS FOR COMPLICATIONS RELATED TO COVID-19 PNEUMONIA [...] End Date/Time Encounter Type Admission Type Attending [facility] Care Department Encounter ID Discharge Date Discharge Status Discharge Condition Discharge Reason Percent Goals Met 2021-10-22 00:00:00 2021-12-20 00:00:00 Outpatient NEW ADMISSION SASCHA FIELDS [facility] [id number] 2021-12-20 00:00:00 DISCHARGE TO HOME OR SELF CARE INDEPENDEN T IN THE COMMUNITY HH OR [facility]- GOALS MET 31.58
--- OUTSIDE RECORDS SUMMARY | 2024-09-09 11:38 | XMS_ITS | Clinical Summary ---
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 Active 10-09 [...] % eye drops 2020-09 00:00: 00 Yes [id number] EYES Per instruc tions EVERY NIGHT AT BEDTIME Per instructio ns EVERY NIGHT AT BEDTIME (route: ophthalmic (eye)) Med Classific ation: Ophthalmi c Agents Eliquis 5 mg tablet 2022-0 1-14 00:00: 00 Yes [id number] AFIB 1 tablet 2 TIMES DAILY 1 tablet 2 TIMES DAILY (route: oral) Med Classific ation: Hematolog ical Agents atenolol 25 mg tablet 2020-09 00:00: 00 10-22 00:00 :00 No [id number] HTN 3 tablet DAILY 3 tablet DAILY (route: oral) Med Classific ation: Cardiovas cular Therapy Agents simvastatin 20 mg tablet 2020-09 00:00: 00 Yes [id number] HLD Per instruc tions EVERY DAY Per instructio ns EVERY DAY (route: oral) Med Classific ation: Cardiovas cular Therapy Agents clonidine HCl 0.1 mg tablet 10-02 00:00: 00 Yes [id number] HTN Per instruc tions TWICE DAILY Per instructio ns TWICE DAILY (route: oral) Med Classific ation: Cardiovas cular Therapy Agents hydralazine 25 mg tablet 10-14 00:00: 00 Yes [id number] HTN 1 tablet 3 TIMES DAILY 1 tablet 3 TIMES DAILY (route: oral) Med Classific ation: Cardiovas cular Therapy Agents bupropion HCl SR 100 mg tablet,12 hr sustained-r elease 2020-09 00:00: 00 Yes [id number] DEPRESSION Per instruc tions EVERY DAY Per instructio ns EVERY DAY (route: oral) Med Classific ation: Central Nervous System Agents lisinopril 40 mg tablet 2020-09 00:00: 00 Yes [id number] HTN 1 tablet EVERY DAY 1 tablet EVERY DAY (route: oral) Med Classific ation: Cardiovas cular Therapy Agents spironolact one 25 mg tablet 2020-09 00:00: 00 Yes [id number] HTN Per instruc tions EVERY DAY Per instructio ns EVERY DAY (route: oral) Med Classific ation: Cardiovas cular Therapy Agents paroxetine 40 mg tablet 2020-09 00:00: 00 Yes [id number] DEPRESSION Per instruc tions EVERY DAY Per instructio ns EVERY DAY (route: oral) Med Classific ation: Central Nervous System Agents carvedilol 12.5 mg tablet 10-14 00:00: 00 Yes [id number] AFIB 1 tablet 2 TIMES DAILY 1 tablet 2 TIMES DAILY (route: oral) Med Classific ation: Cardiovas cular Therapy Agents acetaminoph en 325 mg capsule 10-22 00:00: 00 Yes [id number] PAIN OR FEVER 2 capsule EVERY 6 HOURS 2 capsule EVERY 6 HOURS (route: oral) Med Classific ation: Analgesic , Anti-infl ammatory or Antipyret ic cholecalcif alexandr (vitamin D3) 25 mcg (1,000 unit) capsule 10-22 00:00: 00 Yes [id number] SUPPLEMENT 1 capsule DAILY 1 capsule DAILY (route: oral) Med Classific ation: Electroly te Balance-N utritiona l Products multivitami n tablet 10-22 00:00: 00 Yes [id number] SUPPLEMENT 1 tablet DAILY 1 tablet DAILY (route: oral) Med Classific ation: Electroly te Balance-N utritiona l Products O2 - OXYGEN 10-23 00:00: 00 Yes [id number] oxygenation 2 Liter O2 - CONTINUOUS 2 [...] EMERGENCY SERVICES CALL [facility] NURSE TO KEEP CONE CHOCOLATE DIPPER SYMPTOM REPORT FOR VISIBLE REFERENCE NOTIFY SKILLED [...] EMERGENCY SERVICES CALL [facility] NURSE TO KEEP CONE CHOCOLATE DIPPER SYMPTOM REPORT FOR VISIBLE REFERENCE NOTIFY SKILLED [...] PRN VISITS ; PATIENT REQUIRES 3 PRN ALF VISITS FOR COMPLICATIONS RELATED TO COVID-19 PNEUMONIA [code = PRN VISITS; PATIENT REQUIRES 3 PRN ALF VISITS FOR COMPLICATIONS RELATED TO COVID-19 PNEUMONIA [...] End Date/Time Encounter Type Admission Type Attending [facility] Care Department Encounter ID Discharge Date Discharge Status Discharge Condition Discharge Reason Percent Goals Met 2021-10-22 00:00:00 2021-12-20 00:00:00 Outpatient NEW ADMISSION SASCHA FIELDS [facility] [id number] 2021-12-20 00:00:00 DISCHARGE TO HOME OR SELF CARE INDEPENDEN T IN THE [facility] HH OR [facility]- GOALS MET 31.58
--- OUTSIDE RECORDS SUMMARY | 2024-09-09 11:38 | XMS_ITS | Clinical Summary ---
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 Active 10-09 [...] % eye drops 2020-09 00:00: 00 Yes [id number] EYES Per instruc tions EVERY NIGHT AT BEDTIME Per instructio ns EVERY NIGHT AT BEDTIME (route: ophthalmic (eye)) Med Classific ation: Ophthalmi c Agents Eliquis 5 mg tablet 2022-0 1-14 00:00: 00 Yes [id number] AFIB 1 tablet 2 TIMES DAILY 1 tablet 2 TIMES DAILY (route: oral) Med Classific ation: Hematolog ical Agents atenolol 25 mg tablet 2020-09 00:00: 00 10-22 00:00 :00 No [id number] HTN 3 tablet DAILY 3 tablet DAILY (route: oral) Med Classific ation: Cardiovas cular Therapy Agents simvastatin 20 mg tablet 2020-09 00:00: 00 Yes [id number] HLD Per instruc tions EVERY DAY Per instructio ns EVERY DAY (route: oral) Med Classific ation: Cardiovas cular Therapy Agents clonidine HCl 0.1 mg tablet 10-02 00:00: 00 Yes [id number] HTN Per instruc tions TWICE DAILY Per instructio ns TWICE DAILY (route: oral) Med Classific ation: Cardiovas cular Therapy Agents hydralazine 25 mg tablet 10-14 00:00: 00 Yes [id number] HTN 1 tablet 3 TIMES DAILY 1 tablet 3 TIMES DAILY (route: oral) Med Classific ation: Cardiovas cular Therapy Agents bupropion HCl SR 100 mg tablet,12 hr sustained-r elease 2020-09 00:00: 00 Yes [id number] DEPRESSION Per instruc tions EVERY DAY Per instructio ns EVERY DAY (route: oral) Med Classific ation: Central Nervous System Agents lisinopril 40 mg tablet 2020-09 00:00: 00 Yes [id number] HTN 1 tablet EVERY DAY 1 tablet EVERY DAY (route: oral) Med Classific ation: Cardiovas cular Therapy Agents spironolact one 25 mg tablet 2020-09 00:00: 00 Yes [id number] HTN Per instruc tions EVERY DAY Per instructio ns EVERY DAY (route: oral) Med Classific ation: Cardiovas cular Therapy Agents paroxetine 40 mg tablet 2020-09 00:00: 00 Yes [id number] DEPRESSION Per instruc tions EVERY DAY Per instructio ns EVERY DAY (route: oral) Med Classific ation: Central Nervous System Agents carvedilol 12.5 mg tablet 10-14 00:00: 00 Yes [id number] AFIB 1 tablet 2 TIMES DAILY 1 tablet 2 TIMES DAILY (route: oral) Med Classific ation: Cardiovas cular Therapy Agents acetaminoph en 325 mg capsule 10-22 00:00: 00 Yes [id number] PAIN OR FEVER 2 capsule EVERY 6 HOURS 2 capsule EVERY 6 HOURS (route: oral) Med Classific ation: Analgesic , Anti-infl ammatory or Antipyret ic cholecalcif alexandr (vitamin D3) 25 mcg (1,000 unit) capsule 10-22 00:00: 00 Yes [id number] SUPPLEMENT 1 capsule DAILY 1 capsule DAILY (route: oral) Med Classific ation: Electroly te Balance-N utritiona l Products multivitami n tablet 10-22 00:00: 00 Yes [id number] SUPPLEMENT 1 tablet DAILY 1 tablet DAILY (route: oral) Med Classific ation: Electroly te Balance-N utritiona l Products O2 - OXYGEN 10-23 00:00: 00 Yes [id number] oxygenation 2 Liter O2 - CONTINUOUS 2 [...] EMERGENCY SERVICES CALL [facility] NURSE TO KEEP FAN ENGINE ENGINEER SYMPTOM REPORT FOR VISIBLE REFERENCE NOTIFY SKILLED [...] EMERGENCY SERVICES CALL [facility] NURSE TO KEEP FAN ENGINE ENGINEER SYMPTOM REPORT FOR VISIBLE REFERENCE NOTIFY SKILLED [...] PRN VISITS ; PATIENT REQUIRES 3 PRN LONGTERM VISITS FOR COMPLICATIONS RELATED TO COVID-19 PNEUMONIA [code = PRN VISITS; PATIENT REQUIRES 3 PRN LONGTERM VISITS FOR COMPLICATIONS RELATED TO COVID-19 PNEUMONIA [...] End Date/Time Encounter Type Admission Type Attending [facility] Care Department Encounter ID Discharge Date Discharge Status Discharge Condition Discharge Reason Percent Goals Met 2021-10-22 00:00:00 2021-12-20 00:00:00 Outpatient NEW ADMISSION SASCHA FIELDS [facility] [id number] 2021-12-20 00:00:00 DISCHARGE TO HOME OR SELF CARE INDEPENDEN T IN THE [facility] HH OR [facility]- GOALS MET 31.58
--- OUTSIDE RECORDS SUMMARY | 2024-09-09 11:38 | XMS_ITS | Clinical Summary ---
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 Active 10-09 [...] % eye drops 2020-09 00:00: 00 Yes [id number] EYES Per instruc tions EVERY NIGHT AT BEDTIME Per instructio ns EVERY NIGHT AT BEDTIME (route: ophthalmic (eye)) Med Classific ation: Ophthalmi c Agents Eliquis 5 mg tablet 2022-0 1-14 00:00: 00 Yes [id number] AFIB 1 tablet 2 TIMES DAILY 1 tablet 2 TIMES DAILY (route: oral) Med Classific ation: Hematolog ical Agents atenolol 25 mg tablet 2020-09 00:00: 00 10-22 00:00 :00 No [id number] HTN 3 tablet DAILY 3 tablet DAILY (route: oral) Med Classific ation: Cardiovas cular Therapy Agents simvastatin 20 mg tablet 2020-09 00:00: 00 Yes [id number] HLD Per instruc tions EVERY DAY Per instructio ns EVERY DAY (route: oral) Med Classific ation: Cardiovas cular Therapy Agents clonidine HCl 0.1 mg tablet 10-02 00:00: 00 Yes [id number] HTN Per instruc tions TWICE DAILY Per instructio ns TWICE DAILY (route: oral) Med Classific ation: Cardiovas cular Therapy Agents hydralazine 25 mg tablet 10-14 00:00: 00 Yes [id number] HTN 1 tablet 3 TIMES DAILY 1 tablet 3 TIMES DAILY (route: oral) Med Classific ation: Cardiovas cular Therapy Agents bupropion HCl SR 100 mg tablet,12 hr sustained-r elease 2020-09 00:00: 00 Yes [id number] DEPRESSION Per instruc tions EVERY DAY Per instructio ns EVERY DAY (route: oral) Med Classific ation: Central Nervous System Agents lisinopril 40 mg tablet 2020-09 00:00: 00 Yes [id number] HTN 1 tablet EVERY DAY 1 tablet EVERY DAY (route: oral) Med Classific ation: Cardiovas cular Therapy Agents spironolact one 25 mg tablet 2020-09 00:00: 00 Yes [id number] HTN Per instruc tions EVERY DAY Per instructio ns EVERY DAY (route: oral) Med Classific ation: Cardiovas cular Therapy Agents paroxetine 40 mg tablet 2020-09 00:00: 00 Yes [id number] DEPRESSION Per instruc tions EVERY DAY Per instructio ns EVERY DAY (route: oral) Med Classific ation: Central Nervous System Agents carvedilol 12.5 mg tablet 10-14 00:00: 00 Yes [id number] AFIB 1 tablet 2 TIMES DAILY 1 tablet 2 TIMES DAILY (route: oral) Med Classific ation: Cardiovas cular Therapy Agents acetaminoph en 325 mg capsule 10-22 00:00: 00 Yes [id number] PAIN OR FEVER 2 capsule EVERY 6 HOURS 2 capsule EVERY 6 HOURS (route: oral) Med Classific ation: Analgesic , Anti-infl ammatory or Antipyret ic cholecalcif alexandr (vitamin D3) 25 mcg (1,000 unit) capsule 10-22 00:00: 00 Yes [id number] SUPPLEMENT 1 capsule DAILY 1 capsule DAILY (route: oral) Med Classific ation: Electroly te Balance-N utritiona l Products multivitami n tablet 10-22 00:00: 00 Yes [id number] SUPPLEMENT 1 tablet DAILY 1 tablet DAILY (route: oral) Med Classific ation: Electroly te Balance-N utritiona l Products O2 - OXYGEN 10-23 00:00: 00 Yes [id number] oxygenation 2 Liter O2 - CONTINUOUS 2 [...] EMERGENCY SERVICES CALL [facility] NURSE TO KEEP PRESIDENT SYMPTOM REPORT FOR VISIBLE REFERENCE NOTIFY SKILLED [...] EMERGENCY SERVICES CALL [facility] NURSE TO KEEP PRESIDENT SYMPTOM REPORT FOR VISIBLE REFERENCE NOTIFY SKILLED [...] PRN VISITS ; PATIENT REQUIRES 3 PRN CORRECTION VISITS FOR COMPLICATIONS RELATED TO COVID-19 PNEUMONIA [code = PRN VISITS; PATIENT REQUIRES 3 PRN CORRECTION VISITS FOR COMPLICATIONS RELATED TO COVID-19 PNEUMONIA [...] End Date/Time Encounter Type Admission Type Attending [facility] Care Department Encounter ID Discharge Date Discharge Status Discharge Condition Discharge Reason Percent Goals Met 2021-10-22 00:00:00 2021-12-20 00:00:00 Outpatient NEW ADMISSION SASCHA FIELDS [facility] [id number] 2021-12-20 00:00:00 DISCHARGE TO HOME OR SELF CARE INDEPENDEN T IN THE [facility] HH OR [facility]- GOALS MET 31.58
== END 2024-09-05 12:52 | disposition home or self-care (01) ==
PROVIDERS: Physician Assistant; Emergency Provider Emergency Medicine Emergency Medical Services; PCP Internal Medicine
DX: R07.9 Chest pain, unspecified (principal); I44.0 Atrioventricular block, first degree; E11.9 Type 2 diabetes mellitus without complications; Z87.891 Personal history of nicotine dependence
CPT/HCPCS: 36415; 71045; 80053; 81003; 83880; 84484; 85025; 93005; 99283; 99285

== ENCOUNTER → 2024-09-05 07:26 | Outpatient (BNV) | payer MEDICARE, BC, OTHER, SELFPAY | PROVIDERS: Emergency Provider Emergency Medicine Emergency Medical Services; PCP Internal Medicine; Visit Provider Internal Medicine Cardiovascular Disease | DX: R07.9 Chest pain, unspecified (principal); I44.0 Atrioventricular block, first degree; R94.31 Abnormal electrocardiogram [ECG] [EKG] | CPT/HCPCS: 93010 ==

== ENCOUNTER 2024-09-07 11:22 | Outpatient (AMB) | payer MEDICARE, BC, OTHER, SELFPAY ==
--- NOTE | 2024-09-07 11:26 | MHC.OFFVIS ---
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 Accompanied by: Spouse Allergies nifedipine [NIFEDIPINE] Allergy (Unknown, Verified 09/07/24 11:30) UNKNOWN- DOES NOT REMEMBER Pt states no known allergy to Allergy (Unknown, Uncoded 09/02/24 08:47) n/a HPI HPI Unilateral primary osteoarthritis, rt hip/hip inj: Details: Patient is a pleasant 69 years old female with history of anxiety and depression, panic disorder, DM (A1C=7.1), low back pain, Afib (on Eliquis), h/o COVID in 2021 with chest pain leading to cardiac catheterization, left knee osteoarthritis, CELIA on CPAP, presents today for initial evaluation of right hip pain due to moderate OA and right food drop. Patient was referred to our office by Dr. Lucio for right hip injection. Patient reports right hip pain for 2-3 months and new onset of right foot drop about 2 weeks ago due to trip and fall episode. She reports h/o multiple falls. Patient reports increased right groin pain and numbness in right foot with numbness and impaired walking since recent fall. She was seen in our ER, Urgent Clinic and Orthopedic providers for the past 2-3 weeks. She was also recently seen for chest pain at ER 2 days ago with normal cardiac enzymes and pending Cardiology follow up. Patient reports partial relief with short script of oxycodone and cyclobenzaprine, Tylenol, and heat with continued symptoms. She was referred to Physical therapy but has not started this yet. Pain radiates from right groin and lateral hip into right lopez and whole foot with difficulty dorsiflexing her ankle and toes on the right. Reports intermitent tingling and numbness on the left and mainly numbness on the right. Lumbar spine MRI was recently completed and does not explain cause for right foot drop. Right hip and groin pain is most severe with getting out of the car, weight bearing, walking or standing, prolonged sitting, and any movement. Patient is concerned for foot drop and steppage gait. She reports history of pituitary gland surgery 27 years and ENT surgery in [place] 3 years for mucoid secretions removal. She does not follow Neurology at this time. We will place referral today. Denies any fever or chills, shortness of breaths, chest pain or tightness, headache, bladder or bowel dysfunction or saddle anesthesia. Location: Right hip radiates down right leg, right food drop Duration: Pain for 3 months, food drop for 2 weeks Characteristics of symptom or complaint: Numbness, aching, pulling, shooting, radiaing, sore, throbbing Aggravating or associated factors: Activities, movement, walking, standing, climbing stairs, Relieving factors: Tylenol, oxycodone, cyclobenzaprine, prednisone, heat Treatment: ER, Urgent Clinic, xray, MRI, Orthopedic eval, pending PT [facility] Medical History Type 2 diabetes mellitus without complications Diverticulosis of large intestine without perforation or abscess without bleeding 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 Patient Tobacco Use Status: Former Tobacco user Advance Directives Date on File: 07/03/22 service: No Current occupational status: retired Review of Systems Const All systems reviewed & are unremarkable except as noted in HPI and below Neuro Reports Sensory deficit (Neuro) (mild sensory loss right lopez and dorsal right foot) Physical Exam Vital Signs: Last Vital Signs Pulse 88 09/07/24 11:31 BP 128/75 09/07/24 11:31 Pulse Ox 96 09/07/24 11:31 Oxygen Delivery Method Room Air 09/07/24 11:31 BMI result Body Mass Index 37.5 General: Appears afebrile. Alert and oriented. Mood and affect appropriate. Follows and participates in conversation appropriately. Respiratory effort is unlabored. No cough. Able to transition from sit to stand unassisted. Ambulates with left normal heel strike and toe off. Right foot drop with steppage gait. Uses cane with ambulation. Right groin pain with external right hip rotation. +Impingement test on the right. Mild GTB on the right. Const Orientation/consciousness: patient oriented x3 Eyes Pupils: Equal, round and reactive pupils present Back/Spine/Pelvis Cervical Spine: loss of normal cervical lordosis, cervical muscular tenderness and No Cervical spine tenderness Thoracic/Lumbar Spine: thoracic and lumbar spine normal to inspection, Lasegue's sign negative, straight leg raise negative bilaterally, pain with thoraco-lumbar ROM, thoraco-lumbar ROM limited, No thoracic spinal tenderness and No lumbar spinal tenderness Pelvis: no buttock tenderness Skin General skin exam: no rashes or lesions noted Trauma: abrasion (healing superficial abrasions right knee and anterior right foot) Neuro General: patient oriented x3, Normal light touch and pain sensation, CN's II-XI intact bilaterally and deep tendon reflexes 2+ bilaterally (absent Achilles tendon reflex on the right) Cranial nerves: Yes Equal, round and reactive pupils present Cognition (Neuro): normal cognition Gait exam (Neuro): Antalgic gait present, Steppage gait present and Assisted gait required (cane) Gait assisted method: foot drop Motor exam (neuro): 5/5 motor strength present throughout (unable to dorsiflex right foot and toes), no tremor noted and Normal motor muscle tone present throughout Sensory Exam: Sensory deficit (Neuro) (mild sensory loss right lopez and dorsal right foot) Results Reviewed Results Reviewed: MR LUMBAR SPINE WITHOUT CONTRAST 08/28/24 CLINICAL INFORMATION: Foot drop, right foot COMPARISON: MRI lumbar spine on 07/16/2008 TECHNIQUE: MRI of the lumbar spine was obtained using routine sequences without contrast. FINDINGS: Preservation of the normal lumbar lordosis. No listhesis. No acute bone marrow abnormality. Diffusely heterogeneous bone marrow signal is likely degenerative. The vertebral body heights are preserved. Multilevel disc desiccation with mild to moderate disc height loss at L4-5. Type II endplate changes at L4-5. Multilevel endplate osteophytosis. The visualized spinal cord is normal in caliber. No abnormal cord signal. The conus medullaris terminates at L1. T12-L1: Shallow disc bulge and bilateral facet arthrosis. No significant spinal canal or neural foraminal narrowing. L1-2: Shallow disc bulge and bilateral facet arthrosis. No significant spinal canal or neural foraminal narrowing. L2-3: Diffuse disc bulge and bilateral facet arthrosis. No significant spinal canal or neural foraminal narrowing. L3-4: Diffuse disc bulge with superimposed left subarticular disc protrusion. Bilateral facet arthrosis. No significant spinal canal or neural foraminal narrowing. L4-5: Diffuse disc bulge with superimposed annular fissure. Bilateral facet arthrosis. No significant spinal canal stenosis. Mild left neural foraminal narrowing. L5-S1: Diffuse disc bulge with bilateral foraminal disc protrusion. Annular fissure and bilateral facet arthrosis. No significant spinal canal stenosis. Mild left greater than right neural foraminal narrowing. The paravertebral soft tissues are unremarkable. IMPRESSION: Multilevel lumbar spondylosis without significant spinal canal stenosis. There is mild left neural foraminal narrowing at L4-L5 and mild left greater than right neural foraminal narrowing at L5-S1. US TRIPLEX LOWER EXTREMITY, RIGHT 08/20/24 CLINICAL INFORMATION: Edema, right lower extremity FINDINGS: Respiratory variation, normal compression and augmented flow are noted throughout the right lower extremity. The visualized common femoral vein, superficial femoral vein, profunda femoral vein, popliteal vein and midcalf peroneal and posterior tibial venous segments show no evidence of deep venous thrombosis. There is no Arroyo's cyst. IMPRESSION: No acute deep venous thrombosis interrogated veins, right lower extremity. XR HIP, RIGHT 08/13/24 CLINICAL INFORMATION: Right groin pain FINDINGS: No acetabular or pubic fracture seen. There is mild narrowing of the superior medial right hip joint space. Minimal spurring of the right greater trochanter region. No erosive process. Small spurring of the superior lateral left femoral head and the inferomedial acetabular margin. There are pelvic phleboliths. Sacrum is grossly intact. IMPRESSION: No acute process. Degenerative changes as described. CT HEAD WITHOUT CONTRAST 11/04/2017 CLINICAL INFORMATION: Status post fall with facial injury. FINDINGS: There is no evidence of acute intracranial hemorrhage or territorial infarction. No abnormal mass effect or midline shift is seen. Alves to white matter differentiation is well preserved. No extra-axial fluid collections are identified. The ventricles are normal in size. Very mild chronic white matter microangiopathic changes are noted. The osseous structures and soft tissues are normal. The mastoid air cells are well aerated. The left sphenoid sinus is expanded and remodeled with complete soft tissue opacification. The floor of the sella is focally eroded and in continuity with the left sphenoid sinus as well. No suprasellar soft tissue abnormality is seen. There are additional areas of bony erosion in the left lateral wall of the left sphenoid sinus and along the bony left carotid groove. The remaining imaged paranasal sinuses are aerated. IMPRESSION: No acute intracranial pathology. Mild chronic white matter microangiopathy. Complete soft tissue opacification of the left sphenoid sinus cavity with areas of bony erosion along the lateral wall, posterior wall, and roof of the left sphenoid sinus, partially in continuity with the sella. A portion of the left carotid groove is dehiscent as well. It is indeterminate as to whether findings reflect a sphenoid sinus mucocele, an intrasinus lesion or possibly a mycetoma with obstructed mucoid secretions. The possibility of a pituitary lesion growing into the sphenoid sinus cavity cannot be ruled out. A dedicated MRI of the brain targeting the pituitary region and sphenoid sinus without and with contrast is recommended in follow-up. Assessment & Plan Assessment & Plan (1) Right foot drop: Code(s): M21.371 - Foot drop, right foot Category: Medical (2) Right leg pain: Code(s): M79.604 - Pain in right leg Category: Medical (3) Arthritis of right hip: Code(s): M16.11 - Unilateral primary osteoarthritis, right hip Category: Medical (4) Right leg numbness: Code(s): R20.0 - Anesthesia of skin Category: Medical Plan Schedule Right hip intra-articular steroid injection with local and fluoroscopy. Expectations, risks and benefits were reviewed. Patient is aware he will be contacted to schedule this procedure. Neurology referral for further evaluation of new onset right foot drop s/p fall. Recent lumbar spine MRI does not show findings to explain patient's symptoms. Recommend right AFO for ankle/foot support, patient will obtain this at Orthopedic office. I will submit for Neurodiagnostic test for RLE to rule out peroneal neuropathy. Patient is aware to call if pain worsens or if she develops any red flag symptoms to seek emergency care. All questions and concerns have been answered and patient agreed with the treatment plan. Follow up after injeciton and sooner as needed. Orders: Orders NE nerve conduction velocity Today M21.371 - Foot drop, right foot, M79.604 - Pain in right leg, R20.0 - Anesthesia of skin XR foot RT min 3V Today M21.371 - Foot drop, right foot, M79.604 - Pain in right leg NE electromyogram (EMG) Today M21.371 - Foot drop, right foot, M79.604 - Pain in right leg, R20.0 - Anesthesia of skin Referrals Neurology Referral M21.371 - Foot drop, right foot, R20.0 - Anesthesia of skin Coding Level of Care Code Est Pt Level 4 (18117) Complex EM visit Add On G2211 Diagnoses Right foot drop M21.371 Right leg pain M79.604 Arthritis of right hip M16.11 Right leg numbness R20.0
[2024-09-07 11:31] VITALS: BP 128/75; PULSE 88; O2SAT 96; BMI 37.5
== END 2024-09-07 12:23 | disposition home or self-care (01) ==
PROVIDERS: PCP Internal Medicine; Visit Provider Nurse Practitioner Family
DX: M21.371 Foot drop, right foot (principal); M79.604 Pain in right leg; M16.11 Unilateral primary osteoarthritis, right hip; R20.0 Anesthesia of skin
CPT/HCPCS: 99214; G2211

== ENCOUNTER 2024-09-07 11:22 | Outpatient (REF) | payer MEDICARE, BC, OTHER, SELFPAY ==
--- NOTE | ~2024-09-07 | XR_ITS ---
EXAMINATION: XR FOOT, RIGHT CLINICAL INFORMATION: Foot drop. COMPARISON: None available. TECHNIQUE: AP, lateral, and oblique views of the right foot. FINDINGS: No acute fracture or dislocation. Cortical irregularity along the plantar/lateral aspect of the first metatarsal which could represent sequela of remote injury. No joint space narrowing and marginal osteophytes. No osseous erosion. Plantar and dorsal calcaneal spurs. XR/XR foot RT min 3V IMPRESSION: 1. No acute fracture or dislocation. 2. Cortical irregularity along the plantar/lateral aspect of the first metatarsal which could represent sequela of remote injury. Electronically signed by: Wisam Hensley MD 09/07/2024 03:38 PM [facility]
--- OUTSIDE RECORDS SUMMARY | 2024-09-09 15:31 | XMS_ITS | Clinical Summary ---
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 Active 10-09 [...] % eye drops 2020-09 00:00: 00 Yes [id number] EYES Per instruc tions EVERY NIGHT AT BEDTIME Per instructio ns EVERY NIGHT AT BEDTIME (route: ophthalmic (eye)) Med Classific ation: Ophthalmi c Agents Eliquis 5 mg tablet 2022-0 1-14 00:00: 00 Yes [id number] AFIB 1 tablet 2 TIMES DAILY 1 tablet 2 TIMES DAILY (route: oral) Med Classific ation: Hematolog ical Agents atenolol 25 mg tablet 2020-09 00:00: 00 10-22 00:00 :00 No [id number] HTN 3 tablet DAILY 3 tablet DAILY (route: oral) Med Classific ation: Cardiovas cular Therapy Agents simvastatin 20 mg tablet 2020-09 00:00: 00 Yes [id number] HLD Per instruc tions EVERY DAY Per instructio ns EVERY DAY (route: oral) Med Classific ation: Cardiovas cular Therapy Agents clonidine HCl 0.1 mg tablet 10-02 00:00: 00 Yes [id number] HTN Per instruc tions TWICE DAILY Per instructio ns TWICE DAILY (route: oral) Med Classific ation: Cardiovas cular Therapy Agents hydralazine 25 mg tablet 10-14 00:00: 00 Yes [id number] HTN 1 tablet 3 TIMES DAILY 1 tablet 3 TIMES DAILY (route: oral) Med Classific ation: Cardiovas cular Therapy Agents bupropion HCl SR 100 mg tablet,12 hr sustained-r elease 2020-09 00:00: 00 Yes [id number] DEPRESSION Per instruc tions EVERY DAY Per instructio ns EVERY DAY (route: oral) Med Classific ation: Central Nervous System Agents lisinopril 40 mg tablet 2020-09 00:00: 00 Yes [id number] HTN 1 tablet EVERY DAY 1 tablet EVERY DAY (route: oral) Med Classific ation: Cardiovas cular Therapy Agents spironolact one 25 mg tablet 2020-09 00:00: 00 Yes [id number] HTN Per instruc tions EVERY DAY Per instructio ns EVERY DAY (route: oral) Med Classific ation: Cardiovas cular Therapy Agents paroxetine 40 mg tablet 2020-09 00:00: 00 Yes [id number] DEPRESSION Per instruc tions EVERY DAY Per instructio ns EVERY DAY (route: oral) Med Classific ation: Central Nervous System Agents carvedilol 12.5 mg tablet 10-14 00:00: 00 Yes [id number] AFIB 1 tablet 2 TIMES DAILY 1 tablet 2 TIMES DAILY (route: oral) Med Classific ation: Cardiovas cular Therapy Agents acetaminoph en 325 mg capsule 10-22 00:00: 00 Yes [id number] PAIN OR FEVER 2 capsule EVERY 6 HOURS 2 capsule EVERY 6 HOURS (route: oral) Med Classific ation: Analgesic , Anti-infl ammatory or Antipyret ic cholecalcif alexandr (vitamin D3) 25 mcg (1,000 unit) capsule 10-22 00:00: 00 Yes [id number] SUPPLEMENT 1 capsule DAILY 1 capsule DAILY (route: oral) Med Classific ation: Electroly te Balance-N utritiona l Products multivitami n tablet 10-22 00:00: 00 Yes [id number] SUPPLEMENT 1 tablet DAILY 1 tablet DAILY (route: oral) Med Classific ation: Electroly te Balance-N utritiona l Products O2 - OXYGEN 10-23 00:00: 00 Yes [id number] oxygenation 2 Liter O2 - CONTINUOUS 2 [...] EMERGENCY SERVICES CALL [facility] NURSE TO KEEP CULINARY CHEF SYMPTOM REPORT FOR VISIBLE REFERENCE NOTIFY SKILLED [...] EMERGENCY SERVICES CALL [facility] NURSE TO KEEP CULINARY CHEF SYMPTOM REPORT FOR VISIBLE REFERENCE NOTIFY SKILLED [...] End Date/Time Encounter Type Admission Type Attending [facility] Care Department Encounter ID Discharge Date Discharge Status Discharge Condition Discharge Reason Percent Goals Met 2021-10-22 00:00:00 2021-12-20 00:00:00 Outpatient NEW ADMISSION SASCHA FIELDS [facility] [id number] 2021-12-20 00:00:00 DISCHARGE TO HOME OR SELF CARE INDEPENDEN T IN THE [facility] HH OR [facility]- GOALS MET 31.58
--- OUTSIDE RECORDS SUMMARY | 2024-09-09 15:31 | XMS_ITS | Clinical Summary ---
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 Active [...] % eye drops 2020-09 00:00: 00 Yes [id number] EYES Per instruc tions EVERY NIGHT AT BEDTIME Per instructio ns EVERY NIGHT AT BEDTIME (route: ophthalmic (eye)) Med Classific ation: Ophthalmi c Agents Eliquis 5 mg tablet 2022-0 1-14 00:00: 00 Yes [id number] AFIB 1 tablet 2 TIMES DAILY 1 tablet 2 TIMES DAILY (route: oral) Med Classific ation: Hematolog ical Agents atenolol 25 mg tablet 2020-09 00:00: 00 10-22 00:00 :00 No [id number] HTN 3 tablet DAILY 3 tablet DAILY (route: oral) Med Classific ation: Cardiovas cular Therapy Agents simvastatin 20 mg tablet 2020-09 00:00: 00 Yes [id number] HLD Per instruc tions EVERY DAY Per instructio ns EVERY DAY (route: oral) Med Classific ation: Cardiovas cular Therapy Agents clonidine HCl 0.1 mg tablet 10-02 00:00: 00 Yes [id number] HTN Per instruc tions TWICE DAILY Per instructio ns TWICE DAILY (route: oral) Med Classific ation: Cardiovas cular Therapy Agents hydralazine 25 mg tablet 10-14 00:00: 00 Yes [id number] HTN 1 tablet 3 TIMES DAILY 1 tablet 3 TIMES DAILY (route: oral) Med Classific ation: Cardiovas cular Therapy Agents bupropion HCl SR 100 mg tablet,12 hr sustained-r elease 2020-09 00:00: 00 Yes [id number] DEPRESSION Per instruc tions EVERY DAY Per instructio ns EVERY DAY (route: oral) Med Classific ation: Central Nervous System Agents lisinopril 40 mg tablet 2020-09 00:00: 00 Yes [id number] HTN 1 tablet EVERY DAY 1 tablet EVERY DAY (route: oral) Med Classific ation: Cardiovas cular Therapy Agents spironolact one 25 mg tablet 2020-09 00:00: 00 Yes [id number] HTN Per instruc tions EVERY DAY Per instructio ns EVERY DAY (route: oral) Med Classific ation: Cardiovas cular Therapy Agents paroxetine 40 mg tablet 2020-09 00:00: 00 Yes [id number] DEPRESSION Per instruc tions EVERY DAY Per instructio ns EVERY DAY (route: oral) Med Classific ation: Central Nervous System Agents carvedilol 12.5 mg tablet 10-14 00:00: 00 Yes [id number] AFIB 1 tablet 2 TIMES DAILY 1 tablet 2 TIMES DAILY (route: oral) Med Classific ation: Cardiovas cular Therapy Agents acetaminoph en 325 mg capsule 10-22 00:00: 00 Yes [id number] PAIN OR FEVER 2 capsule EVERY 6 HOURS 2 capsule EVERY 6 HOURS (route: oral) Med Classific ation: Analgesic , Anti-infl ammatory or Antipyret ic cholecalcif alexandr (vitamin D3) 25 mcg (1,000 unit) capsule 10-22 00:00: 00 Yes [id number] SUPPLEMENT 1 capsule DAILY 1 capsule DAILY (route: oral) Med Classific ation: Electroly te Balance-N utritiona l Products multivitami n tablet 10-22 00:00: 00 Yes [id number] SUPPLEMENT 1 tablet DAILY 1 tablet DAILY (route: oral) Med Classific ation: Electroly te Balance-N utritiona l Products O2 - OXYGEN 10-23 00:00: 00 Yes [id number] oxygenation 2 Liter O2 - CONTINUOUS 2 [...] EMERGENCY SERVICES CALL [facility] NURSE TO KEEP UNINDENTURED APPRENTICE SYMPTOM REPORT FOR VISIBLE REFERENCE NOTIFY SKILLED [...] EMERGENCY SERVICES CALL [facility] NURSE TO KEEP UNINDENTURED APPRENTICE SYMPTOM REPORT FOR VISIBLE REFERENCE NOTIFY SKILLED [...] End Date/Time Encounter Type Admission Type Attending [facility] Care Department Encounter ID Discharge Date Discharge Status Discharge Condition Discharge Reason Percent Goals Met 2021-10-22 00:00:00 2021-12-20 00:00:00 Outpatient NEW ADMISSION SASCHA FIELDS [facility] [id number] 2021-12-20 00:00:00 DISCHARGE TO HOME OR SELF CARE INDEPENDEN T IN THE [facility] HH OR [facility]- GOALS MET 31.58
== END 2024-09-07 11:23 | disposition home or self-care (01) ==
LOC: HO.XRAY 11:22
PROVIDERS: PCP Internal Medicine; Visit Provider Nurse Practitioner Family
DX: M21.371 Foot drop, right foot (principal); M79.604 Pain in right leg; M16.11 Unilateral primary osteoarthritis, right hip; R20.0 Anesthesia of skin
CPT/HCPCS: 73630; 99212

== ENCOUNTER 2024-09-24 11:54 | Outpatient (AMB) | payer MEDICARE, BC, OTHER, SELFPAY ==
--- OUTSIDE RECORDS SUMMARY | 2024-09-24 11:57 | XMS_ITS | Clinical Summary ---
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 ANTICOAGULAN TS Active 10-09 [...] % eye drops 2020-09 00:00: 00 Yes [id number] EYES Per instruc tions EVERY NIGHT AT BEDTIME Per instructio ns EVERY NIGHT AT BEDTIME (route: ophthalmic (eye)) Med Classific ation: Ophthalmi c Agents Eliquis 5 mg tablet 2022-0 1-14 00:00: 00 Yes [id number] AFIB 1 tablet 2 TIMES DAILY 1 tablet 2 TIMES DAILY (route: oral) Med Classific ation: Hematolog ical Agents atenolol 25 mg tablet 2020-09 00:00: 00 10-22 00:00 :00 No [id number] HTN 3 tablet DAILY 3 tablet DAILY (route: oral) Med Classific ation: Cardiovas cular Therapy Agents simvastatin 20 mg tablet 2020-09 00:00: 00 Yes [id number] HLD Per instruc tions EVERY DAY Per instructio ns EVERY DAY (route: oral) Med Classific ation: Cardiovas cular Therapy Agents clonidine HCl 0.1 mg tablet 10-02 00:00: 00 Yes [id number] HTN Per instruc tions TWICE DAILY Per instructio ns TWICE DAILY (route: oral) Med Classific ation: Cardiovas cular Therapy Agents hydralazine 25 mg tablet 10-14 00:00: 00 Yes [id number] HTN 1 tablet 3 TIMES DAILY 1 tablet 3 TIMES DAILY (route: oral) Med Classific ation: Cardiovas cular Therapy Agents bupropion HCl SR 100 mg tablet,12 hr sustained-r elease 2020-09 00:00: 00 Yes [id number] DEPRESSION Per instruc tions EVERY DAY Per instructio ns EVERY DAY (route: oral) Med Classific ation: Central Nervous System Agents lisinopril 40 mg tablet 2020-09 00:00: 00 Yes [id number] HTN 1 tablet EVERY DAY 1 tablet EVERY DAY (route: oral) Med Classific ation: Cardiovas cular Therapy Agents spironolact one 25 mg tablet 2020-09 00:00: 00 Yes [id number] HTN Per instruc tions EVERY DAY Per instructio ns EVERY DAY (route: oral) Med Classific ation: Cardiovas cular Therapy Agents paroxetine 40 mg tablet 2020-09 00:00: 00 Yes [id number] DEPRESSION Per instruc tions EVERY DAY Per instructio ns EVERY DAY (route: oral) Med Classific ation: Central Nervous System Agents carvedilol 12.5 mg tablet 10-14 00:00: 00 Yes [id number] AFIB 1 tablet 2 TIMES DAILY 1 tablet 2 TIMES DAILY (route: oral) Med Classific ation: Cardiovas cular Therapy Agents acetaminoph en 325 mg capsule 10-22 00:00: 00 Yes [id number] PAIN OR FEVER 2 capsule EVERY 6 HOURS 2 capsule EVERY 6 HOURS (route: oral) Med Classific ation: Analgesic , Anti-infl ammatory or Antipyret ic cholecalcif alexandr (vitamin D3) 25 mcg (1,000 unit) capsule 10-22 00:00: 00 Yes [id number] SUPPLEMENT 1 capsule DAILY 1 capsule DAILY (route: oral) Med Classific ation: Electroly te Balance-N utritiona l Products multivitami n tablet 10-22 00:00: 00 Yes [id number] SUPPLEMENT 1 tablet DAILY 1 tablet DAILY (route: oral) Med Classific ation: Electroly te Balance-N utritiona l Products O2 - OXYGEN 10-23 00:00: 00 Yes [id number] oxygenation 2 Liter O2 - CONTINUOUS 2 [...] EMERGENCY SERVICES CALL [facility] NURSE TO KEEP DYE RANGE TENDER SYMPTOM REPORT FOR VISIBLE REFERENCE NOTIFY SKILLED [...] EMERGENCY SERVICES CALL [facility] NURSE TO KEEP DYE RANGE TENDER SYMPTOM REPORT FOR VISIBLE REFERENCE NOTIFY SKILLED [...] PRN VISITS ; PATIENT REQUIRES 3 PRN RETIREMENT VISITS FOR COMPLICATIONS RELATED TO COVID-19 PNEUMONIA [code = PRN VISITS; PATIENT REQUIRES 3 PRN RETIREMENT VISITS FOR COMPLICATIONS RELATED TO COVID-19 PNEUMONIA [...] 2021-12-20 00:00:00 Outpatient NEW ADMISSION SASCHA FIELDS [facility] [id number] 2021-12-20 00:00:00 DISCHARGE TO HOME OR SELF CARE INDEPENDEN T IN THE COMMUNITY HH OR PAL- GOALS MET 31.58
--- OUTSIDE RECORDS SUMMARY | 2024-09-24 11:57 | XMS_ITS | Clinical Summary ---
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 TS Active 10-09 [...] % eye drops 2020-09 00:00: 00 Yes [id number] EYES Per instruc tions EVERY NIGHT AT BEDTIME Per instructio ns EVERY NIGHT AT BEDTIME (route: ophthalmic (eye)) Med Classific ation: Ophthalmi c Agents Eliquis 5 mg tablet 2022-0 1-14 00:00: 00 Yes [id number] AFIB 1 tablet 2 TIMES DAILY 1 tablet 2 TIMES DAILY (route: oral) Med Classific ation: Hematolog ical Agents atenolol 25 mg tablet 2020-09 00:00: 00 10-22 00:00 :00 No [id number] HTN 3 tablet DAILY 3 tablet DAILY (route: oral) Med Classific ation: Cardiovas cular Therapy Agents simvastatin 20 mg tablet 2020-09 00:00: 00 Yes [id number] HLD Per instruc tions EVERY DAY Per instructio ns EVERY DAY (route: oral) Med Classific ation: Cardiovas cular Therapy Agents clonidine HCl 0.1 mg tablet 10-02 00:00: 00 Yes [id number] HTN Per instruc tions TWICE DAILY Per instructio ns TWICE DAILY (route: oral) Med Classific ation: Cardiovas cular Therapy Agents hydralazine 25 mg tablet 10-14 00:00: 00 Yes [id number] HTN 1 tablet 3 TIMES DAILY 1 tablet 3 TIMES DAILY (route: oral) Med Classific ation: Cardiovas cular Therapy Agents bupropion HCl SR 100 mg tablet,12 hr sustained-r elease 2020-09 00:00: 00 Yes [id number] DEPRESSION Per instruc tions EVERY DAY Per instructio ns EVERY DAY (route: oral) Med Classific ation: Central Nervous System Agents lisinopril 40 mg tablet 2020-09 00:00: 00 Yes [id number] HTN 1 tablet EVERY DAY 1 tablet EVERY DAY (route: oral) Med Classific ation: Cardiovas cular Therapy Agents spironolact one 25 mg tablet 2020-09 00:00: 00 Yes [id number] HTN Per instruc tions EVERY DAY Per instructio ns EVERY DAY (route: oral) Med Classific ation: Cardiovas cular Therapy Agents paroxetine 40 mg tablet 2020-09 00:00: 00 Yes [id number] DEPRESSION Per instruc tions EVERY DAY Per instructio ns EVERY DAY (route: oral) Med Classific ation: Central Nervous System Agents carvedilol 12.5 mg tablet 10-14 00:00: 00 Yes [id number] AFIB 1 tablet 2 TIMES DAILY 1 tablet 2 TIMES DAILY (route: oral) Med Classific ation: Cardiovas cular Therapy Agents acetaminoph en 325 mg capsule 10-22 00:00: 00 Yes [id number] PAIN OR FEVER 2 capsule EVERY 6 HOURS 2 capsule EVERY 6 HOURS (route: oral) Med Classific ation: Analgesic , Anti-infl ammatory or Antipyret ic cholecalcif alexandr (vitamin D3) 25 mcg (1,000 unit) capsule 10-22 00:00: 00 Yes [id number] SUPPLEMENT 1 capsule DAILY 1 capsule DAILY (route: oral) Med Classific ation: Electroly te Balance-N utritiona l Products multivitami n tablet 10-22 00:00: 00 Yes [id number] SUPPLEMENT 1 tablet DAILY 1 tablet DAILY (route: oral) Med Classific ation: Electroly te Balance-N utritiona l Products O2 - OXYGEN 10-23 00:00: 00 Yes [id number] oxygenation 2 Liter O2 - CONTINUOUS 2 [...] EMERGENCY SERVICES CALL [facility]EDISYS NURSE TO KEEP MEDICAL I D SALES SYMPTOM REPORT FOR VISIBLE REFERENCE NOTIFY SKILLED [...] EMERGENCY SERVICES CALL [facility] NURSE TO KEEP MEDICAL I D SALES SYMPTOM REPORT FOR VISIBLE REFERENCE NOTIFY SKILLED [...] PRN VISITS ; PATIENT REQUIRES 3 PRN LONG TERM VISITS FOR COMPLICATIONS RELATED TO COVID-19 PNEUMONIA [code = PRN VISITS; PATIENT REQUIRES 3 PRN LONG TERM VISITS FOR COMPLICATIONS RELATED TO COVID-19 PNEUMONIA [...] ADMISSION SASCHA FIELDS [facility] [id number] 2021-12-20 00:00:00 DISCHARGE TO HOME OR SELF CARE INDEPENDEN T IN THE COMMUNITY HH OR PAL- GOALS MET 31.58
--- NOTE | 2024-09-24 12:17 | A.OFFPSYCH_ITS ---
Intake Intake Visit Reasons: depression Allergies nifedipine [NIFEDIPINE] Allergy (Unknown, Verified 09/07/24 11:30) UNKNOWN- DOES NOT REMEMBER Pt states no known allergy to Allergy (Unknown, Uncoded 09/02/24 08:47) n/a HPI- Psychiatric Chief Complaint: depression HPI Narrative: Pt seen in f/u mood has been anxious dysphoric pt has developed r foot drop unclear seen in pain management has pain at times going down r leg from hip ? still being worked up.Mood has been somewhat more anxious and dysphoric, no si future oriented . Past Psychiatric History: History of panic disorder chronic dysthymia some of the anxiety difficulties started with prolactinoma and history of surgery Mental Status Exam Mental Status Exam Narrative: Mental Status Exam Narrative: Appearance: Casually dressed Behavior: Cooperative appropriate psychomotor: Within normal limits Speech: Normal volume and prosody Thought proccess logical and goal-directed Thought content: Concerns regarding issues with family. Concerns regarding recent medical issues Mood: ?stressed ? Affect: Appropriate to mood constrict SI:denies HI:denies VH/AH:none Delusions: None Insight/judgment: Good insight and judgment Memory/cog: Intact Assessment and Plan Assessment & Plan (1) Dysthymia: Status: Acute Code(s): F34.1 - Dysthymic disorder (2) Generalized anxiety disorder: Status: Acute Code(s): F41.1 - Generalized anxiety disorder (3) Panic disorder: Status: Acute Code(s): F41.0 - Panic disorder [episodic paroxysmal anxiety] Plan pt with new onset foot drop has pain syndrome being worked up using cane . Concerned re any change in medication did discuss possible tx options cont on paxil wellbutrin need for medical w/u Medications: Refilled clonazepam 0.5 mg PO DAILY PRN 30 tabs 2RF Anxiety bupropion HCl SR 100 mg PO DAILY 90 tabs 1RF paroxetine HCl (Paxil) 40 mg PO DAILY 90 tabs 1RF Counseling and coordination of Care Pt. Self Management counseling: Med illness tx adherence Details-Self Mgmt counseling: issues related to dealing with chronic and acute medical issues Diagnosis and Prognosis Counseling: Adequacy of current interventions Details: I spent [40] minutes reviewing the record, seeing the patient and documenting in the medical record. Counseling provided to the patient/caregiver as outlined below. Addressed patient/caregiver concerns regarding current medication regime including effective adherence. Addressed patient/caregiver concerns regarding diagnosis and prognosis including accuracy of diagnosis, prognosis over time, impact of diagnosis. Addressed patient/caregiver concerns regarding impact of recent stressors. [facility] Medical History Type 2 diabetes mellitus without complications Diverticulosis of large intestine without perforation or abscess without bleeding 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
== END 2024-09-24 15:53 | disposition home or self-care (01) ==
LOC: HO.HOP 11:54
PROVIDERS: PCP Internal Medicine; Visit Provider Psychiatry & Neurology Psychiatry
DX: F34.1 Dysthymic disorder (principal); F41.1 Generalized anxiety disorder; F41.0 Panic disorder [episodic paroxysmal anxiety]
CPT/HCPCS: 90833; 99213

== ENCOUNTER → 2024-09-24 11:54 | Outpatient (BNVA) | payer MEDICARE, BC, OTHER, SELFPAY | PROVIDERS: PCP Internal Medicine; Visit Provider Psychiatry & Neurology Psychiatry | DX: F32.A Depression, unspecified (principal); F34.1 Dysthymic disorder; F41.1 Generalized anxiety disorder; F41.0 Panic disorder [episodic paroxysmal anxiety]; Z71.89 Other specified counseling | CPT/HCPCS: 99212 ==

== ENCOUNTER 2024-10-06 06:25 | Outpatient (REF) | payer MEDICARE, BC, OTHER, SELFPAY ==
--- NOTE | ~2024-10-06 | FL_ITS ---
EXAMINATION: FLUOROSCOPY GUIDANCE FOR NEEDLE PLACEMENT CLINICAL INFORMATION: M16.11 - Unilateral primary osteoarthritis, right hip COMPARISON: None available. TECHNIQUE: Intraoperative fluoroscopy guidance, right hip. Patient position left-sided decubitus. 2 images provided. FINDINGS: 2 images provided for a right hip procedure. FLUOROSCOPY TIME: 0.1 minutes. DOSE AREA PRODUCT: 3.72 uGy-m2 (microgray-meter squared) FL/FL guidance in treatment room IMPRESSION: Nondiagnostic fluoroscopy guidance for treatment procedure, right hip. Electronically signed by: Morgan Germain MD 10/15/2024 09:44 AM ROHAN ADRIAN
--- OUTSIDE RECORDS SUMMARY | 2024-10-06 06:27 | XMS_ITS | Clinical Summary ---
Author Organization Unknown Care Team Providers Care Welding Machine Operator Ultrasonic Name Role Phone DEZ BLAS, YUNG Unavailable Unavailable KEVIN MIN, ANGELICA CHRISTENSEN Unavailable Terell FIELDS RN, SASCHA Unavailable Unavailable JUNIOR PT, MICHAEL Unavailable Unavailable BENJI LEATHER SPRAYER, RUDY Unavailable Unavailable Payers Payer Name Policy Type Policy Number Effective Date Expira tion Date MEDICARE.NGS.PDGM [id number] Problems Condition Name Condition Details Condition Category [...] ON SUPPLEMENTAL OXYGEN Active 10-09 00:00: 00 SYSTEMS ENG (CURRENT) USE OF ANTICOAGULAN TS Active 10-09 [...] % eye drops 2020-09 00:00: 00 Yes [id number] EYES Per instruc tions EVERY NIGHT AT BEDTIME Per instructio ns EVERY NIGHT AT BEDTIME (route: ophthalmic (eye)) Med Classific ation: Ophthalmi c Agents Eliquis 5 mg tablet 2022-0 1-14 00:00: 00 Yes [id number] AFIB 1 tablet 2 TIMES DAILY 1 tablet 2 TIMES DAILY (route: oral) Med Classific ation: Hematolog ical Agents atenolol 25 mg tablet 2020-09 00:00: 00 10-22 00:00 :00 No [id number] HTN 3 tablet DAILY 3 tablet DAILY (route: oral) Med Classific ation: Cardiovas cular Therapy Agents simvastatin 20 mg tablet 2020-09 00:00: 00 Yes [id number] HLD Per instruc tions EVERY DAY Per instructio ns EVERY DAY (route: oral) Med Classific ation: Cardiovas cular Therapy Agents clonidine HCl 0.1 mg tablet 10-02 00:00: 00 Yes [id number] HTN Per instruc tions TWICE DAILY Per instructio ns TWICE DAILY (route: oral) Med Classific ation: Cardiovas cular Therapy Agents hydralazine 25 mg tablet 10-14 00:00: 00 Yes [id number] HTN 1 tablet 3 TIMES DAILY 1 tablet 3 TIMES DAILY (route: oral) Med Classific ation: Cardiovas cular Therapy Agents bupropion HCl SR 100 mg tablet,12 hr sustained-r elease 2020-09 00:00: 00 Yes [id number] DEPRESSION Per instruc tions EVERY DAY Per instructio ns EVERY DAY (route: oral) Med Classific ation: Central Nervous System Agents lisinopril 40 mg tablet 2020-09 00:00: 00 Yes [id number] HTN 1 tablet EVERY DAY 1 tablet EVERY DAY (route: oral) Med Classific ation: Cardiovas cular Therapy Agents spironolact one 25 mg tablet 2020-09 00:00: 00 Yes [id number] HTN Per instruc tions EVERY DAY Per instructio ns EVERY DAY (route: oral) Med Classific ation: Cardiovas cular Therapy Agents paroxetine 40 mg tablet 2020-09 00:00: 00 Yes [id number] DEPRESSION Per instruc tions EVERY DAY Per instructio ns EVERY DAY (route: oral) Med Classific ation: Central Nervous System Agents carvedilol 12.5 mg tablet 10-14 00:00: 00 Yes [id number] AFIB 1 tablet 2 TIMES DAILY 1 tablet 2 TIMES DAILY (route: oral) Med Classific ation: Cardiovas cular Therapy Agents acetaminoph en 325 mg capsule 10-22 00:00: 00 Yes [id number] PAIN OR FEVER 2 capsule EVERY 6 HOURS 2 capsule EVERY 6 HOURS (route: oral) Med Classific ation: Analgesic , Anti-infl ammatory or Antipyret ic cholecalcif alexandr (vitamin D3) 25 mcg (1,000 unit) capsule 10-22 00:00: 00 Yes [id number] SUPPLEMENT 1 capsule DAILY 1 capsule DAILY (route: oral) Med Classific ation: Electroly te Balance-N utritiona l Products multivitami n tablet 10-22 00:00: 00 Yes [id number] SUPPLEMENT 1 tablet DAILY 1 tablet DAILY (route: oral) Med Classific ation: Electroly te Balance-N utritiona l Products O2 - OXYGEN 10-23 00:00: 00 Yes [id number] oxygenation 2 Liter O2 - CONTINUOUS 2 [...] EMERGENCY SERVICES CALL [facility] NURSE TO KEEP PHARMACEUTICAL SALES SPECIALIST SYMPTOM REPORT FOR VISIBLE REFERENCE NOTIFY SKILLED [...] EMERGENCY SERVICES CALL [facility] NURSE TO KEEP PHARMACEUTICAL SALES SPECIALIST SYMPTOM REPORT FOR VISIBLE REFERENCE NOTIFY SKILLED [...] PRN VISITS ; PATIENT REQUIRES 3 PRN CARE HOME VISITS FOR COMPLICATIONS RELATED TO COVID-19 PNEUMONIA [code = PRN VISITS; PATIENT REQUIRES 3 PRN CARE HOME VISITS FOR COMPLICATIONS RELATED TO COVID-19 PNEUMONIA [...] End Date/Time Encounter Type Admission Type Attending [facility] Care Department Encounter ID Discharge Date Discharge Status Discharge Condition Discharge Reason Percent Goals Met 2021-10-22 00:00:00 2021-12-20 00:00:00 Outpatient NEW ADMISSION SASCHA FIELDS [facility] [id number] 2021-12-20 00:00:00 DISCHARGE TO HOME OR SELF CARE INDEPENDEN T IN THE [facility] HH OR PAL- GOALS MET 31.58
--- OUTSIDE RECORDS SUMMARY | 2024-10-06 06:28 | XMS_ITS | Clinical Summary ---
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) USE OF ANTICOAGULAN TS Active [...] % eye drops 2020-09 00:00: 00 Yes [id number] EYES Per instruc tions EVERY NIGHT AT BEDTIME Per instructio ns EVERY NIGHT AT BEDTIME (route: ophthalmic (eye)) Med Classific ation: Ophthalmi c Agents Eliquis 5 mg tablet 2022-0 1-14 00:00: 00 Yes [id number] AFIB 1 tablet 2 TIMES DAILY 1 tablet 2 TIMES DAILY (route: oral) Med Classific ation: Hematolog ical Agents atenolol 25 mg tablet 2020-09 00:00: 00 10-22 00:00 :00 No [id number] HTN 3 tablet DAILY 3 tablet DAILY (route: oral) Med Classific ation: Cardiovas cular Therapy Agents simvastatin 20 mg tablet 2020-09 00:00: 00 Yes [id number] HLD Per instruc tions EVERY DAY Per instructio ns EVERY DAY (route: oral) Med Classific ation: Cardiovas cular Therapy Agents clonidine HCl 0.1 mg tablet 10-02 00:00: 00 Yes [id number] HTN Per instruc tions TWICE DAILY Per instructio ns TWICE DAILY (route: oral) Med Classific ation: Cardiovas cular Therapy Agents hydralazine 25 mg tablet 10-14 00:00: 00 Yes [id number] HTN 1 tablet 3 TIMES DAILY 1 tablet 3 TIMES DAILY (route: oral) Med Classific ation: Cardiovas cular Therapy Agents bupropion HCl SR 100 mg tablet,12 hr sustained-r elease 2020-09 00:00: 00 Yes [id number] DEPRESSION Per instruc tions EVERY DAY Per instructio ns EVERY DAY (route: oral) Med Classific ation: Central Nervous System Agents lisinopril 40 mg tablet 2020-09 00:00: 00 Yes [id number] HTN 1 tablet EVERY DAY 1 tablet EVERY DAY (route: oral) Med Classific ation: Cardiovas cular Therapy Agents spironolact one 25 mg tablet 2020-09 00:00: 00 Yes [id number] HTN Per instruc tions EVERY DAY Per instructio ns EVERY DAY (route: oral) Med Classific ation: Cardiovas cular Therapy Agents paroxetine 40 mg tablet 2020-09 00:00: 00 Yes [id number] DEPRESSION Per instruc tions EVERY DAY Per instructio ns EVERY DAY (route: oral) Med Classific ation: Central Nervous System Agents carvedilol 12.5 mg tablet 10-14 00:00: 00 Yes [id number] AFIB 1 tablet 2 TIMES DAILY 1 tablet 2 TIMES DAILY (route: oral) Med Classific ation: Cardiovas cular Therapy Agents acetaminoph en 325 mg capsule 10-22 00:00: 00 Yes [id number] PAIN OR FEVER 2 capsule EVERY 6 HOURS 2 capsule EVERY 6 HOURS (route: oral) Med Classific ation: Analgesic , Anti-infl ammatory or Antipyret ic cholecalcif alexandr (vitamin D3) 25 mcg (1,000 unit) capsule 10-22 00:00: 00 Yes [id number] SUPPLEMENT 1 capsule DAILY 1 capsule DAILY (route: oral) Med Classific ation: Electroly te Balance-N utritiona l Products multivitami n tablet 10-22 00:00: 00 Yes [id number] SUPPLEMENT 1 tablet DAILY 1 tablet DAILY (route: oral) Med Classific ation: Electroly te Balance-N utritiona l Products O2 - OXYGEN 10-23 00:00: 00 Yes [id number] oxygenation 2 Liter O2 - CONTINUOUS 2 [...] EMERGENCY SERVICES CALL [facility] NURSE TO KEEP APPLICATION LEAD SYMPTOM REPORT FOR VISIBLE REFERENCE NOTIFY SKILLED [...] EMERGENCY SERVICES CALL [facility] NURSE TO KEEP APPLICATION LEAD SYMPTOM REPORT FOR VISIBLE REFERENCE NOTIFY SKILLED [...] End Date/Time Encounter Type Admission Type Attending [facility] Care Department Encounter ID Discharge Date Discharge Status Discharge Condition Discharge Reason Percent Goals Met 2021-10-22 00:00:00 2021-12-20 00:00:00 Outpatient NEW ADMISSION SASCHA FIELDS [facility] [id number] 2021-12-20 00:00:00 DISCHARGE TO HOME OR SELF CARE INDEPENDEN T IN THE [facility] HH OR PAL- GOALS MET 31.58
== END 2024-10-06 06:26 | disposition home or self-care (01) ==
LOC: CF 06:25
PROVIDERS: Visit Provider Anesthesiology
DX: M16.11 Unilateral primary osteoarthritis, right hip (principal)
CPT/HCPCS: 20610; 77002; J2003; J2795; J3301; Q9967

== ENCOUNTER 2024-10-06 13:56 | Outpatient (AMB) | payer MEDICARE, BC, OTHER, SELFPAY ==
--- NOTE | 2024-10-06 13:57 | MHC.OFFVIS ---
Vital Signs 10/06/24 14:08 10/06/24 14:55 BP 141/74 H 143/70 H Blood Pressure Location Lt brachial Lt brachial Position Sitting Sitting Pulse 77 65 Pulse Source Pulse Oximeter Pulse Oximeter Pulse Oximetry (%) 96 95 Oxygen Delivery Method Room Air Room Air Comment Pre procedure Post procedure Intake Visit Reasons: RIGHT INTRA-ARTICULAR HIP INJECTION Allergies nifedipine [NIFEDIPINE] Allergy (Unknown, Verified 09/07/24 11:30) UNKNOWN- DOES NOT REMEMBER Pt states no known allergy to Allergy (Unknown, Uncoded 09/02/24 08:47) n/a [facility] Medical History Type 2 diabetes mellitus without complications Diverticulosis of large intestine without perforation or abscess without bleeding 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 Low back pain, unspecified Pain in left shoulder Intercostal pain Major depressive disorder, recurrent, unspecified Acute cough Unilateral primary osteoarthritis, left knee CELIA on CPAP Diastolic dysfunction Panic disorder Generalized anxiety disorder Dysthymia PAF (paroxysmal atrial fibrillation) New onset atrial fibrillation Prediabetes HTN (hypertension) Surgical History History of nasal surgery S/P cardiac cath History of hysterectomy Family History Mother Bladder cancer Social History Alcohol intake: never Comment: instructed to ring dc for assistance. Patient Tobacco Use Status: Former Tobacco user Advance Directives Date on File: 07/03/22 service: No Current occupational status: retired Physical Exam Vital Signs: Last Vital Signs Pulse 65 10/06/24 14:55 BP 143/70 H 10/06/24 14:55 Pulse Ox 95 10/06/24 14:55 Oxygen Delivery Method Room Air 10/06/24 14:55 Assessment & Plan Assessment & Plan (1) Right foot drop: Code(s): M21.371 - Foot drop, right foot Category: Medical (2) Right leg pain: Code(s): M79.604 - Pain in right leg Category: Medical (3) Arthritis of right hip: Code(s): M16.11 - Unilateral primary osteoarthritis, right hip Category: Medical (4) Right leg numbness: Code(s): R20.0 - Anesthesia of skin Category: Medical Plan Intra-articular right hip steroid injection. Informed consent was explained to the patient. All questions were explained and? answered.? The patient was taken inside the operating room where he was positioned left lateral decubitus on the operating table.? Time-out was performed delineating correct site, side, the nature of the procedure, patient's allergy, preoperative antibiotic if needed.? All operating room staff was participating in OR time-out procedure.? The patient stated his name. Non dependent right hip was prepped with ChloraPrep and draped with sterile towels.? The C-arm was brought over the operating field and the picture of bilateral hip joints were obtained on the screen.? The right hip joint was chosen as the target for the injection.? The trochanter position was noted on the screen.? The projection of the trochanter to the skin was noted, the direction of the femoral neck was noted.? The skin was anesthetized using 2% lidocaine at the trochanter area.? 22 gauge 5 in needle was inserted through the skin and advanced to the hip joint silhouette on anterior posterior view.? When needle entered the joint the injection of the contrast was performed demonstrating intra-articular spread of the contrast.? After that 4 cc of ropivacaine 0.5% mixed with Kenalog 40 mg was injected into the area.? The needle was removed sterile dressing was applied. The patient tolerated procedure well. Orders: Orders FL guidance in treatment room Today M16.11 - Unilateral primary osteoarthritis, right hip Coding Level of Care Code Procedure Only Diagnoses Right foot drop M21.371 Right leg pain M79.604 Arthritis of right hip M16.11 Right leg numbness R20.0
[2024-10-06 14:08] VITALS: BP 141/74; PULSE 77; O2SAT 96
[2024-10-06 14:55] VITALS: BP 143/70; PULSE 65; O2SAT 95
--- OUTSIDE RECORDS SUMMARY | 2024-10-06 17:03 | XMS_ITS | Clinical Summary ---
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) USE OF ANTICOAGULAN TS Active 10-09 [...] % eye drops 2020-09 00:00: 00 Yes [id number] EYES Per instruc tions EVERY NIGHT AT BEDTIME Per instructio ns EVERY NIGHT AT BEDTIME (route: ophthalmic (eye)) Med Classific ation: Ophthalmi c Agents Eliquis 5 mg tablet 2022-0 1-14 00:00: 00 Yes [id number] AFIB 1 tablet 2 TIMES DAILY 1 tablet 2 TIMES DAILY (route: oral) Med Classific ation: Hematolog ical Agents atenolol 25 mg tablet 2020-09 00:00: 00 10-22 00:00 :00 No [id number] HTN 3 tablet DAILY 3 tablet DAILY (route: oral) Med Classific ation: Cardiovas cular Therapy Agents simvastatin 20 mg tablet 2020-09 00:00: 00 Yes [id number] HLD Per instruc tions EVERY DAY Per instructio ns EVERY DAY (route: oral) Med Classific ation: Cardiovas cular Therapy Agents clonidine HCl 0.1 mg tablet 10-02 00:00: 00 Yes [id number] HTN Per instruc tions TWICE DAILY Per instructio ns TWICE DAILY (route: oral) Med Classific ation: Cardiovas cular Therapy Agents hydralazine 25 mg tablet 10-14 00:00: 00 Yes [id number] HTN 1 tablet 3 TIMES DAILY 1 tablet 3 TIMES DAILY (route: oral) Med Classific ation: Cardiovas cular Therapy Agents bupropion HCl SR 100 mg tablet,12 hr sustained-r elease 2020-09 00:00: 00 Yes [id number] DEPRESSION Per instruc tions EVERY DAY Per instructio ns EVERY DAY (route: oral) Med Classific ation: Central Nervous System Agents lisinopril 40 mg tablet 2020-09 00:00: 00 Yes [id number] HTN 1 tablet EVERY DAY 1 tablet EVERY DAY (route: oral) Med Classific ation: Cardiovas cular Therapy Agents spironolact one 25 mg tablet 2020-09 00:00: 00 Yes [id number] HTN Per instruc tions EVERY DAY Per instructio ns EVERY DAY (route: oral) Med Classific ation: Cardiovas cular Therapy Agents paroxetine 40 mg tablet 2020-09 00:00: 00 Yes [id number] DEPRESSION Per instruc tions EVERY DAY Per instructio ns EVERY DAY (route: oral) Med Classific ation: Central Nervous System Agents carvedilol 12.5 mg tablet 10-14 00:00: 00 Yes [id number] AFIB 1 tablet 2 TIMES DAILY 1 tablet 2 TIMES DAILY (route: oral) Med Classific ation: Cardiovas cular Therapy Agents acetaminoph en 325 mg capsule 10-22 00:00: 00 Yes [id number] PAIN OR FEVER 2 capsule EVERY 6 HOURS 2 capsule EVERY 6 HOURS (route: oral) Med Classific ation: Analgesic , Anti-infl ammatory or Antipyret ic cholecalcif alexandr (vitamin D3) 25 mcg (1,000 unit) capsule 10-22 00:00: 00 Yes [id number] SUPPLEMENT 1 capsule DAILY 1 capsule DAILY (route: oral) Med Classific ation: Electroly te Balance-N utritiona l Products multivitami n tablet 10-22 00:00: 00 Yes [id number] SUPPLEMENT 1 tablet DAILY 1 tablet DAILY (route: oral) Med Classific ation: Electroly te Balance-N utritiona l Products O2 - OXYGEN 10-23 00:00: 00 Yes [id number] oxygenation 2 Liter O2 - CONTINUOUS 2 [...] EMERGENCY SERVICES CALL [facility] NURSE TO KEEP FINISHING AREA OPERATOR SYMPTOM REPORT FOR VISIBLE REFERENCE NOTIFY SKILLED [...] EMERGENCY SERVICES CALL [facility] NURSE TO KEEP FINISHING AREA OPERATOR SYMPTOM REPORT FOR VISIBLE REFERENCE NOTIFY SKILLED [...] PRN VISITS ; PATIENT REQUIRES 3 PRN HALF-WAY VISITS FOR COMPLICATIONS RELATED TO COVID-19 PNEUMONIA [code = PRN VISITS; PATIENT REQUIRES 3 PRN HALF-WAY VISITS FOR COMPLICATIONS RELATED TO COVID-19 PNEUMONIA [...] End Date/Time Encounter Type Admission Type Attending [facility] Care Department Encounter ID Discharge Date Discharge Status Discharge Condition Discharge Reason Percent Goals Met 2021-10-22 00:00:00 2021-12-20 00:00:00 Outpatient NEW ADMISSION SASCHA FIELDS [facility] [id number] 2021-12-20 00:00:00 DISCHARGE TO HOME OR SELF CARE INDEPENDEN T IN THE COMM[facility] HH OR PAL- GOALS MET 31.58
== END 2024-10-06 14:54 | disposition home or self-care (01) ==
LOC: HO.PMCPRC 13:56
PROVIDERS: PCP Internal Medicine; Visit Provider Anesthesiology
DX: M16.11 Unilateral primary osteoarthritis, right hip (principal); M79.604 Pain in right leg; M21.371 Foot drop, right foot
CPT/HCPCS: 20610; 77002

== ENCOUNTER 2024-10-13 10:00 | Outpatient (RCR) | payer MEDICARE, BC, OTHER, SELFPAY ==
--- NOTE | 2024-09-16 11:47 | MHC.PT.EP ---
[facility] [place] Office [place] Office [place] Office [address] Dandre [place] 140 [facility] [phone] F: [phone] F: [phone] F: [phone] F: [phone] Physical Therapy Plan of Care Date of Evaluation: 09/16/24 Date of Surgery: Diagnosis: This is a 69 yo female presenting to skilled PT with a script for R foot drop. Assessment: This is a 69 yo female presenting to skilled PT with a script for R foot drop. This patient came in to PT today reporting a series of symptoms. She reports that she noticed a debilitating groin pain a few months back. From there she started to have aching in her leg. Her symptoms run anteriorly and medially. She went to the ED due to pain and multiple falls a number of times. There she was given pain medication, had an US to rule out DVT, had an x-ray of the hip which was grossly normal. She was also given Cyclobenzaprine and Prednisone in the ED which did not help. She was referred to ortho for her hip symptoms. At ortho she was dx with a foot drop that she had not realized was happening, given a taper for the prednisone, referral for her right hip injection at pain management and given an order for PT. Additionally, Dr. Lucio ordered a stat MRI for assessment of her back due to the foot drop. MRI results noted: Multilevel lumbar spondylosis without significant spinal canal stenosis. There is mild left neural foraminal narrowing at L4-L5 and mild left greater than right neural foraminal narrowing at L5-S1. She reports little to no back pain. She was then sent to pain management. In pain management she was scheduled for right hip intra-articular steroid injection with local and fluoroscopy, referred to neurology, referred for a right AFO for ankle/foot support, as well as referred for neurodiagnostic test for RLE to rule out peroneal neuropathy. She is here at PT today reporting frustration and fear. She continues to have groin pain which has improved some (described as achy), R LE symptoms (run anterior and medial, described as achy) and ankle/foot numbness (with foot drop). She really is unsure when her foot drop started and was unware she even had it until it was mentioned by ortho. She reports that she was hoping for answers via PT. Currently, she is using lidocaine patches and tylenol for pain relief. She is also using a straight cane which is not her normal baseline. Patient is usually I with gait, driving and ADLs at baseline. She lives with her at home and has full flight of stairs to the basement. 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 Assessment reveals pain that ranges from severe to mild from hip to ankle. Patient demos decreased R LE ROM (primarily ankle), strength of B LE's but primarily the ankle, impaired sensation at LE, impaired reflexes at LE, impaired gait with high steppage and no DF, decreased balance due to drop foot and impaired posture with increased hip ER, ankle PF, forward trunk and rounded shoulders. Based on functional limitations, impaired QOL and pain tolerance patient is a good candidate for skilled PT 2x/wk for 4wks. Frequency and Duration: The patient will be seen 2x/wk for 4wks Short Term Goals: Understand proper use of AD to prevent falls Understand anatomy, PT POC and will be I in HEP Display Fabrication Supervisor Goals: Patient will understand balance strategies and safely execute on own Make frequent skin checks and understand proper footwear, use of AFO when prescribed and fitted Treatment Plan: Modalities to reduce pain, spasms and effusion. Manual therapy to restore motion and function. Therapeutic exercise to improve strength and flexibility. Neuromuscular re-education for posture and balance. Therapeutic activities to return to functional activities of daily living. Electronically signed by: Alexia Do PT Please sign and return to therapist. Thank you for your referral.
--- NOTE | 2024-11-12 08:22 | MHC.PT.DC ---
[facility] [place] Office [place] Office [place] Office [address] Dandre [place] [address] [phone] F: [phone] F: [phone] F: [phone] F: [phone] Physical Therapy Discharge Report Diagnosis: This is a 69 yo female presenting to skilled PT with a script for R foot drop. Date of Surgery: Date of Evaluation: 09/16/24 Date of Discharge: 11/12/24 Treatments to Date: 5 Cancellations to Date: 0 No Shows to Date: 0 Discharge Status: Recommend MD Follow-up Discharge Summary: 10/13: Patient has come to 5 visits of PT with no improvement in ROM. We trialed ther-ex for ROM, manual for soft tissue release and PROM stretching. She is still unable to actively move her ankle. At this point I am DCing her back to MD due to lack in progress. I did educate her on her symptoms, PT capabilities and appropriate referrals. She has a good HEP which I recommended she continue on her own at this time. Chart was closed after 30 days. Electronically signed by: Alexia Do, PT Please sign and return to therapist. Thank you for your referral.
== END 2024-11-12 08:22 | disposition home or self-care (01) ==
LOC: HO.PTCHIC 10:00
PROVIDERS: PCP Internal Medicine; Visit Provider Orthopaedic Surgery
DX: M16.11 Unilateral primary osteoarthritis, right hip (principal); M21.371 Foot drop, right foot
CPT/HCPCS: 97110; 97140; 97162; 97163

== ENCOUNTER 2024-10-14 13:58 | Outpatient (REF) | payer MEDICARE, BC, OTHER, SELFPAY ==
--- NOTE | 2024-10-14 14:00 | EMG_ITS ---
Chief complaint: Sudden onset right leg and groin pain that brought her to the ER 07/2024. Fell after she had left ER and went back to ER 2 days after. Noticed after that she had a right footdrop. She was seen by both Orthopedics and pain management, received a right hip intra-articular injection. History of diabetes. Continues to have a footdrop. Reason for referral: Evaluate for lumbar radiculopathy versus peroneal neuropathy Referred by: Stephanie Wells NP Procedure done: Lower extremity EMG/NCS Precautions and/or limitations: On Eliquis for AFib The limb temperature was monitored continuously and remained between 32-36 degrees C during the performance of the NCS. Nerve Conduction Studies Anti Sensory Summary Table ?Stim Site NR Onset (ms) Norm Onset (ms) Peak (ms) Norm Peak (ms) O-P Amp (?V) Norm O-P Amp Site1 Site2 Delta-0 (ms) Dist (cm) Faraz (m/s) Norm Faraz (m/s) Left Sural Anti Sensory (Lat Mall) Calf NR <4.0 >5.0 Calf Lat Mall 14.0 Right Sural Anti Sensory (Lat Mall) Calf NR <4.0 >5.0 Calf Lat Mall 14.0 Motor Summary Table ?Stim Site NR Onset (ms) Norm Onset (ms) O-P Amp (mV) Norm O-P Amp iAmp (mV) Amp (1st) (%) Site1 Site2 Delta-0 (ms) Dist (cm) Faraz (m/s) Norm Faraz (m/s) Left Peroneal Motor (Ext Dig Brev) Ankle ? 6.1 <4.0 2.5 >2.5 2.9 100.0 Ankle Ext Dig Brev 6.1 0.0 B Fib ? 13.1 2.3 2.9 92.0 B Fib Ankle 7.0 32.0 46 >40 Poplt ? 13.8 2.3 2.9 92.0 Poplt B Fib 0.7 4.0 57 >40 Right Peroneal Motor (Ext Dig Brev) Ankle NR <4.0 >2.5 Ankle Ext Dig Brev 0.0 B Fib NR B Fib Ankle 0.0 >40 Poplt NR Poplt B Fib 0.0 >40 Right Tibial Motor (Abd Castellanos Brev) Ankle ? 4.0 <5 4.8 >2.5 6.4 100.0 Ankle Abd Castellanos Brev 4.0 0.0 Knee ? 13.1 3.7 4.6 77.1 Knee Ankle 9.1 39.0 43 >40 EMG ?Side Muscle Nerve Root Ins Act Fibs Psw Amp Dur Poly Recrt Int Pat Comment Right AbdHallucis MedPlantar S1-2 Nml Nml Nml Nml Nml 0 Nml Complete Right AntTibialis Dp Br Peron L4-5 Incr 1+ 1+ Nml Nml 0 Nml Complete Right PostTibialis Tibial L5, S1 Incr 1+ 1+ Nml Nml 0 Nml Complete Right MedGastroc Tibial S1-2 Nml Nml Nml Nml Nml 0 Nml Complete Right VastusMed Femoral L2-4 Nml Nml Nml Nml Nml 0 Nml Complete Right Peroneus Long Sup Br Peron L5-S1 Incr 1+ 1+ Nml Nml 0 Nml Complete Left AbdHallucis MedPlantar S1-2 Nml Nml Nml Nml Nml 0 Nml Complete Left AntTibialis Dp Br Peron L4-5 Nml Nml Nml Nml Nml 0 Nml Complete Left MedGastroc Tibial S1-2 Nml Nml Nml Nml Nml 0 Nml Complete Left VastusMed Femoral L2-4 Nml Nml Nml Nml Nml 0 Nml Complete Left Peroneus Long Sup Br Peron L5-S1 Nml Nml Nml Nml Nml 0 Nml Complete FINDINGS: Right peroneal nerve showed absent response. Left peroneal nerve showed prolonged distal latency, normal amplitude and normal conduction velocity. Bilateral sural nerves absent response. All other nerves tested were within normal. Concentric needle EMG was performed in selected muscles of the bilateral lower extremities. Study revealed signs of electric abnormalities as shown in the table above. Right tibialis anterior, posterior tibialis, peroneus longus muscle showed increased insertional activity, PSWs and fibrillations. IMPRESSION: 1. This is an abnormal study. 2. There is electrodiagnostic evidence for acute/subacute right L5 radiculopathy. 3. Most likely has underlying sensorimotor peripheral neuropathy. 4. There is no electrodiagnostic evidence for focal peroneal neuropathy or tibial neuropathy, or lumbosacral plexopathy. CLINICAL COMMENT: Reviewed MRI lumbar spine images, disc protrusion L5-S1, disc touching L5 nerve roots. Thank you for your kind referral. Barbie Florentino MD, KENNEDY Board Certified, [place] [employer] and Rehabilitation (ABPMR) Board Certified, [place] Board [employer] Electrodiagnostic Medicine (ABEM) CODIN [id number] MTDD
--- OUTSIDE RECORDS SUMMARY | 2024-10-14 16:30 | XMS_ITS | Clinical Summary ---
Author Organization Unknown Care Team Providers Care Industry Operations Investigator Name Role Phone DEZ BLAS, YUNG Unavailable Unavailable KEVIN MIN, ANGELICA CHRISTENSEN Unavailable Terell FIELDS RN, SASCHA Unavailable Unavailable JUNIOR PT, MICHAEL Unavailable Unavailable BENJI CARDIOLOGY TECHNOLOGIST, RUDY Unavailable Unavailable Payers Payer Name Policy Type Policy Number Effective Date Expira tion Date MEDICARE.NGS.PDGM [id number] Problems Condition Name Condition Details Condition Category [...] ON SUPPLEMENTAL OXYGEN Active 10-09 00:00: 00 HALFWAY (CURRENT) USE OF ANTICOAGULAN TS Active 10-09 [...] % eye drops 2020-09 00:00: 00 Yes [id number] EYES Per instruc tions EVERY NIGHT AT BEDTIME Per instructio ns EVERY NIGHT AT BEDTIME (route: ophthalmic (eye)) Med Classific ation: Ophthalmi c Agents Eliquis 5 mg tablet 2022-0 1-14 00:00: 00 Yes [id number] AFIB 1 tablet 2 TIMES DAILY 1 tablet 2 TIMES DAILY (route: oral) Med Classific ation: Hematolog ical Agents atenolol 25 mg tablet 2020-09 00:00: 00 10-22 00:00 :00 No [id number] HTN 3 tablet DAILY 3 tablet DAILY (route: oral) Med Classific ation: Cardiovas cular Therapy Agents simvastatin 20 mg tablet 2020-09 00:00: 00 Yes [id number] HLD Per instruc tions EVERY DAY Per instructio ns EVERY DAY (route: oral) Med Classific ation: Cardiovas cular Therapy Agents clonidine HCl 0.1 mg tablet 10-02 00:00: 00 Yes [id number] HTN Per instruc tions TWICE DAILY Per instructio ns TWICE DAILY (route: oral) Med Classific ation: Cardiovas cular Therapy Agents hydralazine 25 mg tablet 10-14 00:00: 00 Yes [id number] HTN 1 tablet 3 TIMES DAILY 1 tablet 3 TIMES DAILY (route: oral) Med Classific ation: Cardiovas cular Therapy Agents bupropion HCl SR 100 mg tablet,12 hr sustained-r elease 2020-09 00:00: 00 Yes [id number] DEPRESSION Per instruc tions EVERY DAY Per instructio ns EVERY DAY (route: oral) Med Classific ation: Central Nervous System Agents lisinopril 40 mg tablet 2020-09 00:00: 00 Yes [id number] HTN 1 tablet EVERY DAY 1 tablet EVERY DAY (route: oral) Med Classific ation: Cardiovas cular Therapy Agents spironolact one 25 mg tablet 2020-09 00:00: 00 Yes [id number] HTN Per instruc tions EVERY DAY Per instructio ns EVERY DAY (route: oral) Med Classific ation: Cardiovas cular Therapy Agents paroxetine 40 mg tablet 2020-09 00:00: 00 Yes [id number] DEPRESSION Per instruc tions EVERY DAY Per instructio ns EVERY DAY (route: oral) Med Classific ation: Central Nervous System Agents carvedilol 12.5 mg tablet 10-14 00:00: 00 Yes [id number] AFIB 1 tablet 2 TIMES DAILY 1 tablet 2 TIMES DAILY (route: oral) Med Classific ation: Cardiovas cular Therapy Agents acetaminoph en 325 mg capsule 10-22 00:00: 00 Yes [id number] PAIN OR FEVER 2 capsule EVERY 6 HOURS 2 capsule EVERY 6 HOURS (route: oral) Med Classific ation: Analgesic , Anti-infl ammatory or Antipyret ic cholecalcif alexandr (vitamin D3) 25 mcg (1,000 unit) capsule 10-22 00:00: 00 Yes [id number] SUPPLEMENT 1 capsule DAILY 1 capsule DAILY (route: oral) Med Classific ation: Electroly te Balance-N utritiona l Products multivitami n tablet 10-22 00:00: 00 Yes [id number] SUPPLEMENT 1 tablet DAILY 1 tablet DAILY (route: oral) Med Classific ation: Electroly te Balance-N utritiona l Products O2 - OXYGEN 10-23 00:00: 00 Yes [id number] oxygenation 2 Liter O2 - CONTINUOUS 2 [...] EMERGENCY SERVICES CALL [facility] NURSE TO KEEP CASH APPLICATIONS CLERK SYMPTOM REPORT FOR VISIBLE REFERENCE NOTIFY SKILLED [...] EMERGENCY SERVICES CALL [facility] NURSE TO KEEP CASH APPLICATIONS CLERK SYMPTOM REPORT FOR VISIBLE REFERENCE NOTIFY SKILLED [...] PRN VISITS ; PATIENT REQUIRES 3 PRN [facility]DC VISITS FOR COMPLICATIONS RELATED TO COVID-19 PNEUMONIA [code = PRN VISITS; PATIENT REQUIRES 3 PRN FDC VISITS FOR COMPLICATIONS RELATED TO COVID-19 PNEUMONIA [...] End Date/Time Encounter Type Admission Type Attending [facility] Care Department Encounter ID Discharge Date Discharge Status Discharge Condition Discharge Reason Percent Goals Met 2021-10-22 00:00:00 2021-12-20 00:00:00 Outpatient NEW ADMISSION SASCHA FIELDS [facility] [id number] 2021-12-20 00:00:00 DISCHARGE TO HOME OR SELF CARE INDEPENDEN T IN THE [facility] OR [facility]- GOALS MET 31.58
== END 2024-10-14 13:59 | disposition home or self-care (01) ==
LOC: HO.NEURO 13:58
PROVIDERS: PCP Internal Medicine; Visit Provider Nurse Practitioner Family
DX: M21.371 Foot drop, right foot (principal); R20.0 Anesthesia of skin; M79.604 Pain in right leg
CPT/HCPCS: 95886; 95909

== ENCOUNTER → 2024-10-14 14:00 | Outpatient (BNV) | payer MEDICARE, BC, OTHER, SELFPAY | PROVIDERS: PCP Internal Medicine; Visit Provider Physical Medicine & Rehabilitation | DX: M21.371 Foot drop, right foot (principal); R20.0 Anesthesia of skin; M54.16 Radiculopathy, lumbar region | CPT/HCPCS: 95886; 95909 ==

== ENCOUNTER 2024-10-20 13:05 | Outpatient (AMB) | payer MEDICARE, BC, OTHER, SELFPAY ==
--- NOTE | 2024-10-20 13:10 | A.OFFVIS_ITS ---
Vital Signs 10/20/24 13:16 Height 5 ft 6 in Weight 230 lb BMI 37.1 BP 166/71 H Blood Pressure Location Lt brachial Position Sitting Pulse 78 Pulse Source Pulse Oximeter Intake Visit Reasons: RIGHT INTRA-ARTICULAR HIP INJECTION Intake Note: Pain today 10/09 Dispatcher Relay Required: No Accompanied by: Spouse Allergies nifedipine [NIFEDIPINE] Allergy (Unknown, Verified 10/20/24 13:18) UNKNOWN- DOES NOT REMEMBER Pt states no known allergy to Allergy (Unknown, Uncoded 09/02/24 08:47) n/a HPI Comments Details: Patient presents today to assess response to right hip intra-articular steroid injection on 10/06/[address] Greer. Patient reports 90% ongoing pain relief for right hip pain with occasional right groin pain. She reports partial improvement in her mobility, ADLs and sleep. Patient continues to endorse right foot drop and intermittent radicular low back pain in L5-S1 distribution. Her recent EMG study showed acute/subacute right L5 radiculopathy. She states upcoming Neurosurgical evaluation by Dr. Riggins next month. She is also interested in undergoing right L5 TFESI injection for symptomatic relief and improvement in foot drop symptoms. Denies any fever or chills, bladder or bowel dysfunction or saddle anesthesia. Past Procedures: 10/06/24: Right intra-articular hip steroid injection with fluoroscopy guidance- 90% pain relief PRIOR: Patient is a pleasant 69 years old female with history of anxiety and depression, panic disorder, DM (A1C=7.1), low back pain, Afib (on Eliquis), h/o COVID in 2021 with chest pain leading to cardiac catheterization, left knee osteoarthritis, CELIA on CPAP, presents today for initial evaluation of right hip pain due to moderate OA and right food drop. Patient was referred to our office by Dr. Lucio for right hip injection. Patient reports right hip pain for 2-3 months and new onset of right foot drop about 2 weeks ago due to trip and fall episode. She reports h/o multiple falls. Patient reports increased right groin pain and numbness in right foot with numbness and impaired walking since recent fall. She was seen in our ER, Urgent Clinic and Orthopedic providers for the past 2-3 weeks. She was also recently seen for chest pain at ER 2 days ago with normal cardiac enzymes and pending Cardiology follow up. Patient reports partial relief with short script of oxycodone and cyclobenzaprine, Tylenol, and heat with continued symptoms. She was referred to Physical therapy but has not started this yet. Pain radiates from right groin and lateral hip into right lopez and whole foot with difficulty dorsiflexing her ankle and toes on the right. Reports intermitent tingling and numbness on the left and mainly numbness on the right. Lumbar spine MRI was recently completed and does not explain cause for right foot drop. Right hip and groin pain is most severe with getting out of the car, weight bearing, walking or standing, prolonged sitting, and any movement. Patient is concerned for foot drop and steppage gait. She reports history of pituitary gland surgery 27 years and ENT surgery in [place] 3 years for mucoid secretions removal. She does not follow Neurology at this time. We will place referral today. Denies any fever or chills, shortness of breaths, chest pain or tightness, headache, bladder or bowel dysfunction or saddle anesthesia. Location: Right hip radiates down right leg, right food drop Duration: Pain for 3 months, food drop for 2 weeks Characteristics of symptom or complaint: Numbness, aching, pulling, shooting, radiaing, sore, throbbing Aggravating or associated factors: Activities, movement, walking, standing, climbing stairs, Relieving factors: Tylenol, oxycodone, cyclobenzaprine, prednisone, heat Treatment: ER, Urgent Clinic, xray, MRI, Orthopedic eval, pending PT [facility] Medical History Type 2 diabetes mellitus without complications Diverticulosis of large intestine without perforation or abscess without bleeding 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 Low back pain, unspecified Pain in left shoulder Intercostal pain Major depressive disorder, recurrent, unspecified Acute cough Unilateral primary osteoarthritis, left knee CELIA on CPAP Diastolic dysfunction Panic disorder Generalized anxiety disorder Dysthymia PAF (paroxysmal atrial fibrillation) New onset atrial fibrillation Prediabetes HTN (hypertension) Surgical History History of nasal surgery S/P cardiac cath History of hysterectomy Family History Mother Bladder cancer Social History (Reviewed 09/07/24 @ 13:39 by CARMINA Van Alcohol intake: never Comment: instructed to ring dc for assistance. Patient Tobacco Use Status: Former Tobacco user Advance Directives Date on File: 07/03/22 service: No Current occupational status: retired Review of Systems Const All systems reviewed & are unremarkable except as noted in HPI and below Neuro Reports Sensory deficit (Neuro) (mild sensory loss right lopez and dorsal right foot) Physical Exam General: Appears afebrile. Alert and oriented. Mood and affect appropriate. Follows and participates in conversation appropriately. Respiratory effort is unlabored. No cough. Able to transition from sit to stand unassisted. Ambulates with left normal heel strike and toe off. Right foot drop with steppage gait. Uses cane with ambulation. Mild right groin pain with external right hip rotation. Mild GTB on the right. Const Orientation/consciousness: patient oriented x3 Eyes Pupils: Equal, round and reactive pupils present Back/Spine/Pelvis Cervical Spine: loss of normal cervical lordosis, cervical muscular tenderness and No Cervical spine tenderness Thoracic/Lumbar Spine: thoracic and lumbar spine normal to inspection, Lasegue's sign positive on the right and localized, pain with thoraco-lumbar ROM, paraspinal muscle tenderness, thoraco-lumbar ROM limited, No thoracic spinal tenderness and lumbar spinal tenderness (L4-S1) Pelvis: no buttock tenderness Sacroiliac joints: bilaterally nontender Skin General skin exam: no rashes or lesions noted Trauma: abrasion (healing superficial abrasions right knee and anterior right foot) Neuro General: patient oriented x3, Normal light touch and pain sensation, CN's II-XI intact bilaterally and deep tendon reflexes 2+ bilaterally (absent Achilles tendon reflex on the right) Cranial nerves: Yes Equal, round and reactive pupils present Cognition (Neuro): normal cognition Gait exam (Neuro): Antalgic gait present, Steppage gait present and Assisted gait required (cane) Gait assisted method: foot drop Motor exam (neuro): 5/5 motor strength present throughout (unable to dorsiflex right foot and toes), no tremor noted and Normal motor muscle tone present throughout Sensory Exam: Sensory deficit (Neuro) (mild sensory loss right lopez and dorsal right foot) Results Reviewed Results Reviewed: NE electromyogram (EMG); NE nerve conduction velocity 10/14/24 FINDINGS: Right peroneal nerve showed absent response. Left peroneal nerve showed prolonged distal latency, normal amplitude and normal conduction velocity. Bilateral sural nerves absent response. All other nerves tested were within normal. Concentric needle EMG was performed in selected muscles of the bilateral lower extremities. Study revealed signs of electric abnormalities as shown in the table above. Right tibialis anterior, posterior tibialis, peroneus longus muscle showed increased insertional activity, PSWs and fibrillations. IMPRESSION: 1. This is an abnormal study. 2. There is electrodiagnostic evidence for acute/subacute right L5 radiculopathy. 3. Most likely has underlying sensorimotor peripheral neuropathy. 4. There is no electrodiagnostic evidence for focal peroneal neuropathy or tibial neuropathy, or lumbosacral plexopathy. CLINICAL COMMENT: Reviewed MRI lumbar spine images, disc protrusion L5-S1, disc touching L5 nerve roots. MRI LUMBAR SPINE WITHOUT CONTRAST 08/28/24 CLINICAL INFORMATION: Foot drop, right foot COMPARISON: MRI lumbar spine on 07/16/2008 TECHNIQUE: MRI of the lumbar spine was obtained using routine sequences without contrast. FINDINGS: Preservation of the normal lumbar lordosis. No listhesis. No acute bone marrow abnormality. Diffusely heterogeneous bone marrow signal is likely degenerative. The vertebral body heights are preserved. Multilevel disc desiccation with mild to moderate disc height loss at L4-5. Type II endplate changes at L4-5. Multilevel endplate osteophytosis. The visualized spinal cord is normal in caliber. No abnormal cord signal. The conus medullaris terminates at L1. T12-L1: Shallow disc bulge and bilateral facet arthrosis. No significant spinal canal or neural foraminal narrowing. L1-2: Shallow disc bulge and bilateral facet arthrosis. No significant spinal canal or neural foraminal narrowing. L2-3: Diffuse disc bulge and bilateral facet arthrosis. No significant spinal canal or neural foraminal narrowing. L3-4: Diffuse disc bulge with superimposed left subarticular disc protrusion. Bilateral facet arthrosis. No significant spinal canal or neural foraminal narrowing. L4-5: Diffuse disc bulge with superimposed annular fissure. Bilateral facet arthrosis. No significant spinal canal stenosis. Mild left neural foraminal narrowing. L5-S1: Diffuse disc bulge with bilateral foraminal disc protrusion. Annular fissure and bilateral facet arthrosis. No significant spinal canal stenosis. Mild left greater than right neural foraminal narrowing. The paravertebral soft tissues are unremarkable. IMPRESSION: Multilevel lumbar spondylosis without significant spinal canal stenosis. There is mild left neural foraminal narrowing at L4-L5 and mild left greater than right neural foraminal narrowing at L5-S1. US TRIPLEX LOWER EXTREMITY, RIGHT 08/20/24 CLINICAL INFORMATION: Edema, right lower extremity FINDINGS: Respiratory variation, normal compression and augmented flow are noted throughout the right lower extremity. The visualized common femoral vein, superficial femoral vein, profunda femoral vein, popliteal vein and midcalf peroneal and posterior tibial venous segments show no evidence of deep venous thrombosis. There is no Arroyo's cyst. IMPRESSION: No acute deep venous thrombosis interrogated veins, right lower extremity. XR HIP, RIGHT 08/13/24 CLINICAL INFORMATION: Right groin pain FINDINGS: No acetabular or pubic fracture seen. There is mild narrowing of the superior medial right hip joint space. Minimal spurring of the right greater trochanter region. No erosive process. Small spurring of the superior lateral left femoral head and the inferomedial acetabular margin. There are pelvic phleboliths. Sacrum is grossly intact. IMPRESSION: No acute process. Degenerative changes as described. CT HEAD WITHOUT CONTRAST 11/04/2017 CLINICAL INFORMATION: Status post fall with facial injury. FINDINGS: There is no evidence of acute intracranial hemorrhage or territorial infarction. No abnormal mass effect or midline shift is seen. Alves to white matter differentiation is well preserved. No extra-axial fluid collections are identified. The ventricles are normal in size. Very mild chronic white matter microangiopathic changes are noted. The osseous structures and soft tissues are normal. The mastoid air cells are well aerated. The left sphenoid sinus is expanded and remodeled with complete soft tissue opacification. The floor of the sella is focally eroded and in continuity with the left sphenoid sinus as well. No suprasellar soft tissue abnormality is seen. There are additional areas of bony erosion in the left lateral wall of the left sphenoid sinus and along the bony left carotid groove. The remaining imaged paranasal sinuses are aerated. IMPRESSION: No acute intracranial pathology. Mild chronic white matter microangiopathy. Complete soft tissue opacification of the left sphenoid sinus cavity with areas of bony erosion along the lateral wall, posterior wall, and roof of the left sphenoid sinus, partially in continuity with the sella. A portion of the left carotid groove is dehiscent as well. It is indeterminate as to whether findings reflect a sphenoid sinus mucocele, an intrasinus lesion or possibly a mycetoma with obstructed mucoid secretions. The possibility of a pituitary lesion growing into the sphenoid sinus cavity cannot be ruled out. A dedicated MRI of the brain targeting the pituitary region and sphenoid sinus without and with contrast is recommended in follow-up. Assessment & Plan Assessment & Plan (1) Right foot drop: Code(s): M21.371 - Foot drop, right foot Category: Medical (2) Arthritis of right hip: Code(s): M16.11 - Unilateral primary osteoarthritis, right hip Category: Medical (3) Lumbosacral radiculopathy at L5: Code(s): M54.17 - Radiculopathy, lumbosacral region Category: Medical (4) Lumbar degenerative disc disease: Code(s): M51.369 - Other intervertebral disc degeneration, lumbar region without mention of lumbar back pain or lower extremity pain Category: Medical Plan Patient is 2 weeks status post right hip intra-articular steroid injection with ongoing 90% pain relief in her right hip and partially right groin pain. She continues to experience pain in the right leg with worsening right foot drop. She recently underwent neurodiagnostic study which was consistent acute and subacute right L5 radiculopathy. Patient has upcoming neurosurgery evaluation by Dr. Riggins at [facility] next month. Patient is interested to undergo Right L5 TFESI with local and fluoroscopy for symptomatic relief. Patient is also receiving her right AFO ankle support boot for footdrop from [facility]. Expectations, risks and benefits were reviewed. Patient is aware she will be contacted to schedule this procedure. Patient is aware to call if pain worsens or if she develops any red flag symptoms to seek emergency care. All questions and concerns have been answered and patient agreed with the treatment plan. Follow up after injection and sooner as needed. Coding Level of Care Code Est Pt Level 4 (09956) Complex EM visit Add On G2211 Diagnoses Right foot drop M21.371 Arthritis of right hip M16.11 Lumbosacral radiculopathy at L5 M54.17 Lumbar degenerative disc disease M51.369
[2024-10-20 13:16] VITALS: BP 166/71; PULSE 78; BMI 37.1
--- OUTSIDE RECORDS SUMMARY | 2024-10-20 14:49 | XMS_ITS ---
Author Organization [facility] Address [address] [place] [id number] Care Team Providers Care Manager Career Name Role Phone Radu Welch MD Primary Care Provider Pearl Fink Jayashree Ruiz [phone] REASON FOR VISIT Seen Sooner Encounters Encounter Location Date Provider Diagnosis [address] [address] 10/12/2024 Jayashree Fink Plan Of Treatment Next Appt Details Provider Name:Jayashree Pressley Aleks , 12/17/2024 09:15:00 AM, [address] [place], [address], Progress Notes * Ceferino ESTEVESineDOB:03/1955 (69 yo F)Acc No.[id number]:10/12/2024 Progress Note Patient:?Trisha ESTEVES Provider:?Jayashree Fink DPM :1955???Age:69 Y???Sex:Female D ate:10/12/2024 Address:[address] [place] [address], [id number] Pcp:Radu Welch MD Subjective: * Chief Complaints: * ???1. Seen Sooner. * Medical History:? Objective: * Vitals:? Assessment: Plan: * Treatment: * Images: * The named appointment provid er may or may not be the originator of this progress note, and it is not deemed complete until electronically signed by the appointment provider. Sign off status: Pending * Provider:?Jayashree Fink DPM Date:?2024 Generated for Kun pelayo/Isaiah/Alok on:?10/20/2024 02:49 PM EST
--- OUTSIDE RECORDS SUMMARY | 2024-10-20 14:50 | XMS_ITS | Clinical Summary ---
Author Organization [facility] Address [address] [place] [address] Phone Care Team Providers Care Door To Door Salesman Name Role Phone Radu Welch MD Primary Care Provider [phone] Allergies No known active allergies Medications lisinopril (PRINIVIL,ZESTR IL) 40 MG tablet Take 1 tablet by mouth 1 (one) time each day Active PARoxetine (PAXIL) 40 MG tablet Take 1 tablet by mouth 1 (one) time each day Active simvastatin (ZOCOR) 20 MG tablet Take 1 tablet by mouth 1 (one) time each day Active Travoprost, JAN Free, 0.004 % solution Active Eliquis 5 MG tablet Take 5 mg by mouth 2 (two) times a day 02/11/2022 Active carvedilol (COREG) 12.5 MG tablet Take 12.5 mg by mouth in the morning and 12.5 mg in the evening. 02/07/2022 Active clonazePAM (KlonoPIN) 0.5 MG tablet Take 0.5 mg by mouth 1 (one) time each day if needed 02/07/2022 Active apixaban (ELIQUIS) 5 MG tablet Active hydrALAZINE 25 MG tablet 3 (three) times a day Active brimonidine (ALPHAGAN) 0.15 % ophthalmic solution INSTILL 1 DROP IN BOTH EYES EVERY NIGHT AT BEDTIME 03/11/2023 Active latanoprost (XALATAN) 0.005 % ophthalmic solution 03/06/2023 Active buPROPion (WELLBUTRIN) 100 MG tablet Take 100 mg by mouth 1 (one) time each day Active spironolactone (ALDACTONE) 25 MG tablet TAKE 1 TABLET BY MOUTH EVERY DAY 90 tablet 3 05/18/2023 Active cloNIDine (CATAPRES) 0.1 MG tablet TAKE 1 TABLET BY MOUTH TWICE DAILY 180 tablet 5 05/18/2023 Active Active Problems Problem Noted Date Diagnosed Date Polyneuropathy due to type 2 diabetes mellitus 0 03/27/2023 Acid reflux 07/24/2022 Overview (03/27/2023): Last Assessment & Plan: She reports globus sensation. She should elevate the head of her bed. She should avoid eating late at night, fried foods, and large meals. Unspecified temporomandibula r joint disorder, unspecified side 07/24/2022 Overview (03/27/2023): Last Assessment & Plan: Her ear pain is from TMJ dysfunction. I have recommended use of hot packs, soft diet, and ibuprofen. A dental evaluation will also be consided for placement of a director talent acquisition. They can see their dentist or an oral surgeon if symptoms continue. 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 She had a left sphenoidotomy and ethmoidectomy on 06/25/22 for sphenoid mucocele drainage. I explained that long- term mucoceles are complications of previous surgeries. She had bilateral rhinorocket removal on 07/05/22. She has resumed taking Eliquis. A debridement was performed today. Her sinuses are patent and healthy on exam today. There is no further blood or mucous present. She can use her sleep apnea machine again and begin using saline sprays. She can blow her nose. She will have another MRI scan in 6 months for further evaluation. Benign essential hypertension 12/14/2020 Resolved Problems Problem Noted Date Diagnosed Date Resolved Date Acquired hammer toe of left foot 03/27/2023 03/27/2023 Acquired hammer toe of right foot 03/27/2023 03/27/2023 Joint contracture of the ankle and/or foot 03/27/2023 03/27/2023 Family History Medical History Relation Comments Cancer Mother Relation Status Comments Father Mother Social History Tobacco Use Types Packs/Day Years Used Date Smoking Tobacco: Former Smokeless Tobacco: Former Tobacco Cessation:Counseling Given: Not Answered Alcohol Use Standard Drinks/Week Comments Yes 0 (1 standard drink = 0.6 oz pure alcohol) Alcoholic Drinks/day: Occasional social drink Comments Unknown Sex and Gender Information Value Date Recorded Sex Assigned at Not on file Legal Sex Female 5:06 PM EST Gender Identity Not on file Sexual Orientation Not on file Last Filed Vital Signs Vital Sign Reading Time Taken Comments Blood Pressure 120/80 03/27/2023 4:04 PM EDT Pulse 64 03/27/2023 4:04 PM EDT Temperature - - Respiratory Rate - - Oxygen Saturation 93% 03/21/2022 3:38 PM EDT Inhaled Oxygen Concentration - - Weight 111 kg (244 lb 6.4 oz) 03/27/2023 4:04 PM EDT Height 170.2 cm (5' 7 ) 12/09/2019 12:01 PM EDT Body Mass Index 38.28 12/09/2019 12:01 PM EDT Plan of Treatment Health Maintenance Due Date Last Done Comments Breast Cancer Screening 1955 Pneumococcal Vaccine: 65+ Ye ars (1 of 2 - PCV) 1961 Colorectal Cancer Screening: Annual FOBT 2002 Colorectal Cancer Screening: Colonoscopy 2002 Colorectal Cancer Screening: Sigmoidoscopy 2002 Diabetes: Hemoglobin A1C 03/21/2022 12/09/2018 Diabetes: Ophthalmology Exam 03/21/2022 Diabetes: Pedal Pulse Checked 03/21/2022 Diabetes: Sensory Foot Exam 03/21/2022 Diabetes: Visual Foot Exam 03/21/2022 Influenza Vaccine (#1) 2024 Hepatitis B Vaccine Aged Out No longe r eligible based on patient's age to complete this topic Procedures Procedure Name Priority Date/Time Associated Diagnosis Comments HEMOGLOBIN A1C Routine 12/09/2018 11:20 AM EDT from Last 3 Months or Most Recently Relevant to Health Maintenance Results * Hemoglobin A1c (12/09/2018 11:20 AM EDT) Estimated Average Glucose 143 MG/DL ARMIN Comment: eAG = Estimated average glucose which is %A1C expressed as average glucose, using the formula of the [id number] Average Glucose study (ADAG), Diabetes Care, Vol.31,#8, Apr. 2007 Hemoglobin A1C 6.6 % ARMIN Comment: New assay as of: ??10/25/14 ?Hemoglobin A1C Reference Range ? Adults: ??4.8 - 6.0 % ? Non diabetic: ??< 6.0 % ? Goal: ??< 7.0 % Additional Action Suggested: ??> 8.0 % Note: ??Hemoglobin A1c results are invalid for patients ? with abnormal amounts of HbF. 12/09/2018 11:2 0 AM EDT us Radu Welch MD LAB BLOOD ORDERABLES Final Resu lt ARMIN from Last 3 Months or Most Recently Relevant to Health Maintenance Insurance [facility] Care Teams Door To Door Salesman Relationship Specialty Start Date End Date Radu Welch MD [id number] [place] PCP - General 10/10/20
--- OUTSIDE RECORDS SUMMARY | 2024-10-20 14:50 | XMS_ITS | Patient Health Record ---
Author Organization [facility] Address [address] [place] [address] Care Team Providers Care Network Controller Name Role Phone TONY GARCES M.D. Primary Care Provider Unavaila Felicia Pool Unavailable [phone] Reason For Referral No Information Medications Medication SIG (Take, Route, Fr equency, Duration) Notes Start Date End Date Status Simvastatin 20MG 1 ORAL daily for -3 [facility] 09/09/2012 Active Spironolactone 25MG 1 ORAL daily for -3 [facility] 07/08/2013 Active Terazol 7 0.4 % 1 application at bed time Vaginal Once a day for 7 day(s) 05/10/2015 Active LORazepam 0.5 MG 1 tablet as needed O rally Twice a day Active Atenolol 50MG 1 ORAL DAILY for -3 [facility] 09/09/2012 Active cloNIDine HCl 0.1MG 1 ORAL twice daily for -3 [facility] 08/30 Active Lisinopril 40MG 1 ORAL daily for -3 [facility] 09/09/2012 Active PARoxetine HCl 40MG 1 ORAL daily for -3 [facility] 09/09/2012 Active Problems Problem Type SNOMED Code ICD Code Onset Dates Problem Status W/U Status Risk Notes Problem Hyperlipidemia (07483894) Other and unspecified hyperlipidemia (272.4) Active confirmed Major Problem Depressive disorder (78291408) Depressive disorder, not elsewhere classified (311) Active confirmed Major Problem Glaucoma (41496728) Unspecified glaucoma (365.9) Active confirmed Diag Problem Benign essential hypertension (7686489) Essential hypertension, benign (401.1) Active confirmed Major Problem Female genital organ symptoms (453644183) Other specified symptom associated with female genital organs (625.8) Active confirmed Major Problem Postmenopausal bleeding (93732953) Postmenopausal bleeding (627.1) Active confirmed Diag Problem Menopausal symptom (53064502) Symptomatic menopausal or female climacteric states (627.2) Active confirmed Major Problem Left lower quadrant pain (254528015) Abdominal pain, left lower quadrant (789.04) Active confirmed Diag Problem Gynecological examination normal (656605144147417) Routine gynecological examination (V72.31) Active confirmed Problem Screening for malignant neoplasm of colon (092818814) Special screening for malignant neoplasms, colon (V76.51) Active confirmed Major Plan Of Treatment Pending Test Test Name Order Date Bone Density 10/19/2016 Urine Culture and Sensitivity 05/10/2015 Insurance Providers Payer Name Payer Address Payer Phone Subscriber Number Group Number Insured Name Patient Relationship to Insured Coverage Start Date Coverage End Date [employer] [place] [address] [place] [address] [phone] [id number] JUNE ESTEVES Self - patient is the insured [facility] [employer]INK [address] [place], [place] [id number] [phone] [id number] JUNE ESTEVES Self - patient is the insured Medical (General) History Medical History History ICD Code Abdominal pain, left lower quadrant 789. 04 Unspecified glaucoma 365.9 Postmenopausal bleeding 627.1 Depressive disorder, not elsewhere class ified 311 Other and unspecified hyperlipidemia 272 .4 Essential hypertension, benign 401.1 Symptomatic menopausal or female climact daniel states 627.2 Other specified symptom associated with female genital organs 625.8 Surgical History Surgery Date(Month/Year) WISDOM TEETH TONSILLECTOMY APPENDECTOMY PITUITARY GLAND, TUMOR EXCISION [facility] 2013 Hospitalization History Reason Date(Month/Year) CHILD SEE SURGICAL HX
--- OUTSIDE RECORDS SUMMARY | 2024-10-20 14:50 | XMS_ITS ---
Author Organization [facility] Address [address] [place] [address] Care Team Providers Care Rectifying Attendant Name Role Phone Radu Welch MD Primary Care Provider Pearl Fink Jayashree Ruiz [phone] REASON FOR VISIT Seen Sooner Encounters Encounter Location Date Provider Diagnosis [address] [address] 09/17/2024 Jayashree Fink Plan Of Treatment Next Appt Details Provider Name:Jayashree Fink , 12/17/2024 09:15:00 AM, [address] [place], [address], Progress Notes * Ceferino ESTEVESineDOB:03/1955 (69 yo F)Acc No.[id number]:09/17/2024 Progress Note Patient:?CHANI Trisha mosqueda Provider:?Jayashree Fink DPM :1955???Age:69 Y???Sex:Female D ate:09/17/2024 Address:[address] [place] [address], [id number] Pcp:Radu Welch MD Subjective: * Chief Complaints: * ???1. Seen Sooner. * Medical History:? Objective: * Vitals:? Assessment: Plan: * Treatment: * Images: * The named appointment provid er may or may not be the originator of this progress note, and it is not deemed complete until electronically signed by the appointment provider. Sign off status: Pending * Provider:?Jayashree Fink DPM Date:?2023 Generated for Kun pelayo/Isaiah/Alok on:?10/20/2024 02:49 PM EST
--- OUTSIDE RECORDS SUMMARY | 2024-10-20 14:50 | XMS_ITS | Patient Health Record ---
Author Organization [facility] Address [address] [place] [address] Care Team Providers Care Owner/Photographer Name Role Phone Radu Welch MD Primary Care Provider Unavaila susan FinkLizzye Unavailable [phone] Allergies Allergen (clinical drug ingredient) Drug/Non Drug Allergy documented on EMR Reaction Allergy Type Onset Date Status Penicillin Unknown Drug Allergy Active Results Component Value Reference Range Notes HEMOGLOBIN A1C (GLYCOHEMOGLO BIN) Reviewed date:03/16/2024 09:34:31 AM Interpretation: Performing Lab: Notes/Report: HEMOGLOBIN A1C % (HH) 7.1 Reason For Referral No Information Medications Medication SIG (Take, Route, Frequency, Duration) Notes Start Date End Date Status hydrALAZINE HCl 25 MG 1 tablet with food Orally Three times a day for 30 day(s) Active Physical Therapy . . . 2-3x/week for 3- 4 weeks 12/19/2015 Not-Taking Night Splint AFO - L1930 as directed 12/19/2015 Not-Taking Eye Drops Active Claritin Active LORazepam 0.5 MG 1 tablet as needed Orally every 6 hrs Not-Taking Extra Depth Orthopedic Shoes (1 Pair) with Customized Heat Molded Multidensity Innersoles (3 Pair) as directed Dx: NIDDM/Polyneuropathy (E11.42), Hammertoe Foot Deformity (M20.41,M20.42), Preulcerative Skin Lesion(s) (L85.1 Active Brimonidine Tartrate 0.15 % 1 drop into affected eye Ophthalmic every 8 hrs Active Doxycycline Hyclate 100 MG 1 tablet Oral ly Once a day for 10 days Not-Taking Cephalexin 500 MG 1 capsule Orally twice a day for 10 days 11/21/2023 Not-Taking Paxil Not-Taking hydroCHLOROthiazide Not-Taking eliquis 5 mg Active Colcrys 0.6 MG 1 tablet Orally Once a day for 5 days 06/07/2016 Not-Taking Carvedilol 12.5 MG 1 tablet with food Orally Twice a day for 30 day(s) Active Atenolol 25 MG 2 Orally Once a day Not-Taking PARoxetine HCl 40 MG 1 tablet in the morning Orally Once a day for 30 day(s) Active Spironolactone 25 MG 1 tablet Orally for 30 day(s) Active buPROPion HCl ER (SR) 100 MG 1 tablet in the morning Orally Once a day for 30 day(s) Active zzzCompression Stockings 20-30mm Hg . . . for . Active Simvastatin 20 MG Orally Ac tive Keflex 500 MG 1 capsule Orally Twice a day for 10 day(s) Not-Taking Vitamin D Active Lidoderm 5 % 1 patch to intact skin remove after 12 hours Externally Once a day Not-Taking cloNIDine HCl 0.1 MG as directed Orally Active Lisinopril 40 MG as directed Orally Once a day Active Compression Stockings 20-30mm Hg 1 pair wear daily for 30 days Active clonazePAM 0.5 MG Oral for 30 Active Latanoprost 0.005 % Ophthalmic for 50 Active Immunizations Vaccine Route Administration Date Status Comme nts Influenza Unknown 04/18/2020 Refused Influenza Unknown 12/05/2023 Refused Social History Tobacco Use: Social History Observation Description Date Details (start date - stop date) Former Smoker NA - NA Tobacco Use/Smoking Question Answer Notes Are you a: former smoker Additional Findings: Tobacco Non-User Current no n-smoker Alcohol Screen Question Answer Notes Did you have a drink contain ing alcohol in the past year? Yes How often did you have a dri nk containing alcohol in the past year? Monthly or less (1 point) How often did you have 6 or more drinks on one occasion in the past year? Less than monthly (1 point) Points 2 Interpretation Negative Tobacco use other than smoking: Question Answer Notes Are you an other tobacco user? No Problems Problem Type SNOMED Code ICD Code Onset Dates Problem Status W/U Status Risk Notes Problem Acquired hammer toe of right foot (0784745285758351 ) Other hammer toe(s) (acquired), right foot (M20.41) Active confirmed Problem Acquired hammer toe of left foot (1856993863692209 ) Other hammer toe(s) (acquired), left foot (M20.42) Active confirmed Problem Localized, primary osteoarthritis of the ankle and/or foot (143904610) Primary osteoarthritis, left ankle and foot (M19.072) Active confirmed Problem Polyneuropathy due to type 2 diabetes mellitus (271884585) Type 2 diabetes mellitus with diabetic polyneuropathy (E11.42) Active confirmed Problem 433949937 Hammer toe of right foot (M20.41) Active confirmed Problem 323184180 Hammer toe of left foot (M20.42) Active confirmed Problem 625315671 Equinus contracture of left ankle (M24.572) Active confirmed Problem 571670943 Equinus contracture of right ankle (M24.571) Active confirmed Problem Diabetic foot ulcer (802996943) Skin ulcer of toe of right foot, limited to breakdown of skin (L97.511) Active confirmed Problem Diabetic foot ulcer (036863137) Skin ulcer of toe of right foot with fat layer exposed (L97.512) Active confirmed Problem Diabetic foot (053376139) Skin ulcer of toe of left foot with fat layer exposed (L97.522) Active confirmed Problem 91943367 Essential hypertension (I10) Active confirmed Vital Signs Blood pressure diastolic 70 mm Hg 09/14/2024 Height 5ft6in in 09/14/2024 Blood pressure systolic 120 mm Hg 09/14/2024 Weight 239 lbs 09/14/2024 BMI 38.57 kg/m2 09/14/2024 Procedures Procedure Date Ordered Date Performed Result Body Sit e 65196-AOC 11/21/2023 N/A 76403-FLQQVOA SKIN/TISSUE 12/05/2023 N/A 16261-BSAW SKIN LESIONS, 2 TO 4 12/05/2023 N/A I9457-GADEKTYZ DYSTROPHIC NAILS ANY # 12/05/2023 N/A 41030-Edyd Destruction, 1-14 12/23/2023 N/A 73655- Debride <25 sq cm 12/23/2023 N/A 48442-FDHQ SKIN LESIONS, 2 TO 4 12/23/2023 N/A C6880-ZBXXVWWY DYSTROPHIC NAILS ANY # 12/23/2023 N/A 15502-Kjmi Destruction, 1-14 03/16/2024 N/A 09679-Wujlccze Plate 03/16/2024 N/A 15648-UOGJ SKIN LESIONS, 2 TO 4 03/16/2024 N/A Y8936-HDFYVRSA DYSTROPHIC NAILS ANY # 03/16/2024 N/A 73447-Hdga Destruction, 1-14 06/22/2024 N/A 86505-JVIN SKIN LESIONS, 2 TO 4 06/22/2024 N/A C0102-LRYRRNMW DYSTROPHIC NAILS ANY # 06/22/2024 N/A 60843-Lkom Destruction, 1-14 09/14/2024 N/A 64047-DFLJ SKIN LESIONS, 2 TO 4 09/14/2024 N/A Y8301-CCFDZAVE DYSTROPHIC NAILS ANY # 09/14/2024 N/A Encounters Encounter Location Date Provider Diagnosis [address] [address] 11/21/2023 Jayashree Black Ingrown nail L60.[address] [address] 12/05/2023 Jayashree Black Type 2 diabetes mellitus with diabetic polyneuropathy E11.42 and Skin ulcer of toe of right foot with fat layer exposed L97.[address] [address] 12/23/2023 Jayashree Black Other viral warts B07.8 ; Pain in left foot M79.672 ; Type 2 diabetes mellitus with diabetic polyneuropathy E11.42 and Skin ulcer of toe of right foot, limited to breakdown of skin L97.[address] [address] 03/16/2024 Jayashree Black Other viral warts B07.8 ; Pain in left foot M79.672 ; Type 2 diabetes mellitus with diabetic polyneuropathy E11.42 ; Other hammer toe(s) (acquired), left foot M20.42 ; Other hammer toe(s) (acquired), right foot M20.41 and Ingrown nail L60.[address] [address] 06/22/2024 Jayashree Black Other viral warts B07.8 ; Other hammer toe(s) (acquired), right foot M20.41 ; Pain in left foot M79.672 ; Type 2 diabetes mellitus with diabetic polyneuropathy E11.42 ; Other hammer toe(s) (acquired), left foot M20.42 and Ingrown nail L60.[address] [facility] [address] 09/14/2024 Jayashree Fink Other viral warts B07.8 ; Right foot drop M21.371 ; Pain in left foot M79.672 ; Type 2 diabetes mellitus with diabetic polyneuropathy E11.42 ; Injury of right peroneal nerve, initial encounter S84.11XA and Neuritis M79.[address] [address] 11/21/[address] [address] [facility] [facility] [address] 09/14/2024 Jayashree Fink Assessments Encounter Date Diagnosis (ICD Code) Assessment Notes Treatment Notes Treatment Clinical Notes Section Notes 12/23/2023 Other viral warts (ICD-10 - B07.8) 12/23/2023 Pain in left foot (ICD-10 - M79.672) 11/21/2023 Ingrown nail (ICD-10 - L60.0) cx cephalexin pt relates possible PCN allergy 12/05/2023 Type 2 diabetes mellitus with diabetic polyneuropathy (ICD-10 - E11.42) 03/16/2024 Other viral warts (ICD-10 - B07.8) 06/22/2024 Other hammer toe(s) (acquired), right foot (ICD-10 - M20.41) Patient Educated with: DIABETIC FOOT CARE INSTRUCTIONS.p df (DIABETIC FOOT CARE INSTRUCTIONS.p df) 06/22/2024 Other viral warts (ICD-10 - B07.8) 09/14/2024 Other viral warts (ICD-10 - B07.8) 09/14/2024 Right foot drop (ICD-10 - M21.371) 06/22/2024 Pain in left foot (ICD-10 - M79.672) 09/14/2024 Pain in left foot (ICD-10 - M79.672) 03/16/2024 Pain in left foot (ICD-10 - M79.672) 12/05/2023 Skin ulcer of toe of right foot with fat layer exposed (ICD-10 - L97.512) Patient Educated with: WOUND CARE INSTRUCTIONS.p df (WOUND CARE INSTRUCTIONS.p df) 12/23/2023 Type 2 diabetes mellitus with diabetic polyneuropathy (ICD-10 - E11.42) 12/23/2023 Skin ulcer of toe of right foot, limited to breakdown of skin (ICD-10 - L97.511) Patient Educated with: WOUND CARE INSTRUCTIONS.p df (WOUND CARE INSTRUCTIONS.p df) 03/16/2024 Type 2 diabetes mellitus with diabetic polyneuropathy (ICD-10 - E11.42) 09/14/2024 Type 2 diabetes mellitus with diabetic polyneuropathy (ICD-10 - E11.42) 06/22/2024 Type 2 diabetes mellitus with diabetic polyneuropathy (ICD-10 - E11.42) 09/14/2024 Injury of right peroneal nerve, initial encounter (ICD-10 - S84.11XA) 06/22/2024 Other hammer toe(s) (acquired), left foot (ICD-10 - M20.42) 03/16/2024 Other hammer toe(s) (acquired), left foot (ICD-10 - M20.42) 03/16/2024 Other hammer toe(s) (acquired), right foot (ICD-10 - M20.41) Patient Educated with: DIABETIC FOOT CARE INSTRUCTIONS.p df (DIABETIC FOOT CARE INSTRUCTIONS.p df) 03/16/2024 Ingrown nail (ICD-10 - L60.0) 06/22/2024 Ingrown nail (ICD-10 - L60.0) 09/14/2024 Neuritis (ICD-10 - M79.2) 12/05/2023 Other 12/23/2023 Other 03/16/2024 Other 09/14/2024 Other Plan Of Treatment Pending Test Test Name Order Date 66320-Dfpk Destruction, 10-1307/20/2019 14543-Buuq Destruction, 1-14 01/18/2020 32253-Ursp Destruction, -14 04/18/2020 56424-Mbip Destruction, -14 07/07/2020 50908-Rlwm Destruction, -14 10/13/2020 77794-Vlqk Destruction, -14 01/12/2021 04519-Cqtx Destruction, -14 05/15/2021 05224-Ivmw Destruction, -14 08/31/2021 74274-Paok Destruction, -14 11/28/2021 65491-Qdvj Destruction, -14 03/29/2022 13805-Wgzw Destruction, -14 07/02/2022 94356-Mzyb Destruction, -14 10/11/2022 16079-Usgh Destruction, -14 04/25/2023 53850-Ptlc Destruction, -14 08/05/2023 73853-Nnuu Destruction, -14 01/17/2023 89160-Vopp Destruction, -14 12/23/2023 08812-Uovl Destruction, -14 03/16/2024 31033-Xbfc Destruction, -14 06/22/2024 83425-Vzqf Destruction, -14 09/14/2024 46532-Lacoizrp Plate 03/16/2024 51865-Uqbwqljt Plate 08/05/2023 39458-Mahbvcsy Plate 01/17/2023 00768-Afvukvnu Plate 03/29/2022 34807-Jgkccpvu Plate 11/28/2021 33479-Nzogqfby Plate 08/31/2021 22642-Wlweiufw Plate 05/15/2021 32036-Ecmkubuy Plate 01/12/2021 14968-Azwqmoid Plate 04/18/2020 84090-Pndbuipw Plate Each Additional 33988-IOW 11/21/2023 27277- Debride <25 sq cm 12/23/2023 70099-QIENLBL SKIN/TISSUE 12/05/2023 47107-OWKW SKIN LESIONS, 2 TO 4 12/05/19 24 70764-BJGP SKIN LESIONS, 2 TO 4 08/05/20 14387-DEBR SKIN LESIONS, 2 TO 4 01/18/20 10679-FRLE SKIN LESIONS, 2 TO 4 10/11/19 96772-CKYB SKIN LESIONS, 2 TO 4 07/02/20 09960-YWEG SKIN LESIONS, 2 TO 4 12/23/19 86317-SJKD SKIN LESIONS, 2 TO 4 04/25/20 17343-NCRQ SKIN LESIONS, 2 TO 4 03/16/20 31126-WAAA SKIN LESIONS, 2 TO 4 09/14/20 03596-IOCF SKIN LESIONS, 2 TO 4 06/22/20 05530-WOGC SKIN LESIONS, 2 TO 4 04/18/20 54508-UUMU SKIN LESIONS, 2 TO 4 01/18/20 08184-FHAW SKIN LESIONS, 2 TO 4 07/20/20 05554-MOQN SKIN LESIONS, 2 TO 4 07/07/20 56857-JJPR SKIN LESIONS, 2 TO 4 10/13/19 65502-VGKB SKIN LESIONS, 2 TO 4 01/13/20 12089-TOUH SKIN LESIONS, 2 TO 4 05/15/20 29609-MJHG SKIN LESIONS, 2 TO 4 08/31/20 43673-JHIV SKIN LESIONS, 2 TO 4 11/29/19 71066-HYRS SKIN LESIONS, 2 TO 4 03/29/20 D1783-HEXZSYKI DYSTROPHIC NAILS ANY # Q6277-KXDXVIBB DYSTROPHIC NAILS ANY # F6971-BOTXNWUG DYSTROPHIC NAILS ANY # O5533-ERDGFOFF DYSTROPHIC NAILS ANY # A0413-TQQZHXJF DYSTROPHIC NAILS ANY # Z2983-AUESNDCW DYSTROPHIC NAILS ANY # W0084-MZLRSTRF DYSTROPHIC NAILS ANY # D6686-ZUBTRTPU DYSTROPHIC NAILS ANY # W0515-CSMNKIGF DYSTROPHIC NAILS ANY # S0867-VTQWJFRJ DYSTROPHIC NAILS ANY # T9181-MWBYQSKP DYSTROPHIC NAILS ANY # Q9975-FIQGJIJM DYSTROPHIC NAILS ANY # M3112-HABBPCDN DYSTROPHIC NAILS ANY # Q4533-STSHSRIM DYSTROPHIC NAILS ANY # R2164-TVDZBKIH DYSTROPHIC NAILS ANY # T8550-AUBUGMDE DYSTROPHIC NAILS ANY # 10 /11/2021 Y0080-ELCVUQGJ DYSTROPHIC NAILS ANY # A7607-XHVJGUIP DYSTROPHIC NAILS ANY # G2073-LPFUFSFV DYSTROPHIC NAILS ANY # K1897-WEWMMTIW DYSTROPHIC NAILS ANY # Next Appt Details Provider Name:Jayashree Fink , 12/17/2024 09:15:00 AM, [address] [place], [address], Insurance Providers Payer Name Payer Address Payer Phone Subscriber Number Group Number Insured Name Patient Relationship to Insured Coverage Start Date Coverage End Date Medicare [employer] [facility] [address] [place] [address] [id number] Josefina Wilde Self - patient is the insured [facility] [address] [place] [address] [id number] Josefina Wilde Self - patient is the insured [employer] [address] [place] [address] [id number] MAINE WILDE Spouse - patient is the spouse of the insured Medical (General) History Medical History History ICD Code hypertension depression Arthritis Anxiety disorder Glaucoma Neuropathy Chicken pox Back,Hip,and Knee pain Carpal tunnel NIDDM type II diabetes Surgical History Surgery Date(Month/Year) hysterectomy 10/30/13 carpal tunnel surgery tumor removal appendectomy Pituitary sinus surgery 06/25/22 Hospitalization History Reason Date(Month/Year) [place] [facility] [place] 08[place]23 [facility]- 3 days sinus surgery complication uncontrollable nose bleed 2021 [facility] [place] 09/2021
--- OUTSIDE RECORDS SUMMARY | 2024-10-20 14:50 | XMS_ITS ---
[facility] Address [address] [place] [address] Care Team Providers Care Excellence Coach Name Role Phone Radu Welch MD Primary Care Provider Unavaila Jayashree Duke Unavailable [phone] Allergies Allergen (clinical drug ingredient) Drug/Non Drug Allergy documented on EMR Reaction Allergy Type Onset Date Status Penicillin Unknown Drug Allergy Active REASON FOR VISIT At Risk Footcare, Wart(s), Foot/leg pain right Medications Medication SIG (Take, Route, Frequency, Duration) Notes Start Date End Date Status Paxil Not-Taking Colcrys 0.6 MG 1 tablet Orally Once a day for 5 days 06/07/2016 Not-Taking Atenolol 25 MG 2 Orally Once a day Not-Taking Keflex 500 MG 1 capsule Orally Twice a day for 10 day(s) Not-Taking Lidoderm 5 % 1 patch to intact skin remove after 12 hours Externally Once a day Not-Taking hydroCHLOROthiazide Not-Taking Physical Therapy . . . 2-3x/week for 3- 4 weeks 12/19/2015 Not-Taking Night Splint AFO - L1930 as directed 12/19/2015 Not-Taking LORazepam 0.5 MG 1 tablet as needed Orally every 6 hrs Not-Taking Doxycycline Hyclate 100 MG 1 tablet Oral ly Once a day for 10 days Not-Taking clonazePAM 0.5 MG Oral for 30 Active Latanoprost 0.005 % Ophthalmic for 50 Active Extra Depth Orthopedic Shoes (1 Pair) with Customized Heat Molded Multidensity Innersoles (3 Pair) as directed Dx: NIDDM/Polyneuropathy (E11.42), Hammertoe Foot Deformity (M20.41,M20.42), Preulcerative Skin Lesion(s) (L85.1 Active Brimonidine Tartrate 0.15 % 1 drop into affected eye Ophthalmic every 8 hrs Active Cephalexin 500 MG 1 capsule Orally twice a day for 10 days 11/21/2023 Not-Taking Compression Stockings 20-30mm Hg 1 pair wear daily for 30 days Active PARoxetine HCl 40 MG 1 tablet in the morning Orally Once a day for 30 day(s) Active Spironolactone 25 MG 1 tablet Orally for 30 day(s) Active buPROPion HCl ER (SR) 100 MG 1 tablet in the morning Orally Once a day for 30 day(s) Active zzzCompression Stockings 20-30mm Hg . . . for . Active eliquis 5 mg Active Simvastatin 20 MG Orally Ac tive Vitamin D Active cloNIDine HCl 0.1 MG as directed Orally Active Lisinopril 40 MG as directed Orally Once a day Active Carvedilol 12.5 MG 1 tablet with food Orally Twice a day for 30 day(s) Active hydrALAZINE HCl 25 MG 1 tablet with food Orally Three times a day for 30 day(s) Active Eye Drops Active Claritin Active Social History Tobacco Use: Social History Observation Description Date Details (start date - stop date) Former Smoker NA - NA Tobacco Use/Smoking Question Answer Notes Are you a: former smoker Additional Findings: Tobacco Non-User Current no n-smoker Tobacco use other than smoking: Question Answer Notes Are you an other tobacco user? No Problems Problem Type SNOMED Code ICD Code Onset Dates Problem Status W/U Status Risk Notes Problem 11236281 Essential hypertension (I10) Active confirmed Vital Signs Height 5ft6in in 09/14/2024 Weight 239 lbs 09/14/2024 BMI 38.57 kg/m2 09/14/2024 Blood pressure systolic 120 mm Hg 09/14/20 24 Blood pressure diastolic 70 mm Hg 024 Procedures Procedure Date Ordered Date Performed Result Body Sit e 91174-Uwfh Destruction, 1-14 09/14/2024 N/A 80291-IGDV SKIN LESIONS, 2 TO 4 09/14/2024 N/A C1772-QESHYBLG DYSTROPHIC NAILS ANY # 09/14/2024 N/A Encounters Encounter Location Date Provider Diagnosis [facility] [place] [address] [place] [address] 09/14/2024 Jayashree Fink Other viral warts B07.8 ; Right foot drop M21.371 ; Pain in left foot M79.672 ; Type 2 diabetes mellitus with diabetic polyneuropathy E11.42 ; Injury of right peroneal nerve, initial encounter S84.11XA and Neuritis M79.2 Assessments Encounter Date Diagnosis (ICD Code) Assessment Notes Treatment Notes Treatment Clinical Notes Section Notes 09/14/2024 Other viral warts (ICD-10 - B07.8) 09/14/2024 Right foot drop (ICD-10 - M21.371) 09/14/2024 Pain in left foot (ICD-10 - M79.672) 09/14/2024 Type 2 diabetes mellitus with diabetic polyneuropathy (ICD-10 - E11.42) 09/14/2024 Injury of right peroneal nerve, initial encounter (ICD-10 - S84.11XA) 09/14/2024 Neuritis (ICD-10 - M79.2) 09/14/2024 Other Plan Of Treatment Pending Test Test Name Order Date 73886-Xocd Destruction, 1-14 09/14/2024 83528-NURM SKIN LESIONS, 2 TO 4 09/14/20 24 L4166-SILWFYRM DYSTROPHIC NAILS ANY # Next Appt Details Follow Up: 3 Months, Reason: Provider Name:Jayashree Fink , 12/17/2024 09:15:00 AM, [address] [place] [address], [phone], Procedure Notes * Category Sub-Category Detail Notes Wart Treatment Procedure Verrucae(s) were debrided to pin-point bleeding margins with sterile surgical blade, silver nitrate chemocautery applied, recomm. immune-boosting meds such as zinc, recomm. follow up with topical chemosurgical agents, Pt STILL, CONT, defers any other forms of tx (09899), DIABETES: Any more invasive procedure to wart deferred due to diabetes risk Keratoma Treatment Parring or Cutting o f Benign Hyperkeratotic Lesion(s) (-56) 2-4 Lesions - Due to the at risk nature of the patients medical condition as documented in the exam findings, performance of this keratoderma treatment is medically necessary as its management by an unskilled/untrained nonprofessional would put this patients foot and overall health at risk. Therefore, the benign hyperkeratotic lesions, (2_ ) in total, locations as stated and described in the exam ( sub 5th b/l_ ), were pared, and/or cut utilizing a sterile 15 blade, tissue nippers, and/or power dremel instrumentation by the physician of record - 30724 Nail Reduction Nail Reduction (-27) Trimming o f all dystrophic nails - Due to the at risk nature of the patients medical condition as documented in the exam findings, performance of this nail treatment is medically necessary as its management by an unskilled/untrained nonprofessional would put this patients foot and overall health at risk. Therefore, the dystrophic nails, in locations as stated and described in the exam ( 1-5 b/l ), were debrided by the phisician of record to reduce/remove overall nail length and girth, by manual and electrical means with use of a nail nipper and/or dremel, to more viable healthy nail plate or bed tissue - G0127 Progress Notes * Alivia WILDEOB:03/1955 (69 yo F)Acc No.[id number]:09/14/2024 Progress Note Patient:?Trisha WILDE Provider:?Jayashree Fink DPM :1955???Age:69 Y???Sex:Female D ate:09/14/2024 Address:[address] [place], [place] [id number] Pcp:Radu Welch MD Subjective: * Chief Complaints: * ???At Risk FootcareWart(s)Fo ot/leg pain right * HPI: ???At Risk footcare:?Pt States Last PCP Visit:?Date?08/13/2024 ???Wart:?Pt States Last PCP Visit:?Date:?08/13/2024 ???Foot Pain:?Nature:?drop foot, radiating, sharp, shooting right.?Location:?RIGHT.?Treatments:?Pain management?.? * ROS:?General/Constitutional:?Nausea?denies.?Vomiting?denies.?Hunger Thirst?denies.?Loss appetite?denies.?Chills?denies.?Fatigue?denies.?Fever?denies.?Night Sweats?denies.?Unexplained weight loss?denies.?Unexplained weight gain?denies.?HEENTM:?Dentures?denies.?Dizziness?denies.?Glasses/contacts?admits.?Retinopathy?den ies.?Blurred/double vision?denies.?TMJ?denies.?Discharge/drainage?denies.?Implants?denies.?Sore throat?denies.?Dental implants?denies.?Hard of hearing ?denies.?Difficulty chewing/swallowing/speaking?denies.?Nose bleeds?denies.?Sore mouth?denies.?Respiratory:?On O xygen?denies.?Pneumonia/pleurisy?denies.?Bronchitis?denies.?Emphysema?denies.?Co ughing?denies.?Cough blood?denies.?Shortness of breath?denies.?Wheezing?denies.?Cardiovascular:?Pacemaker?denies.?MVP?denies.?WPW?denies.?CHF?denies.?Heart attack?denies.?Septal defect?denies.?Rapid beat?denies.?Chest pain ?denies.?Atrial Fib.?denies.?Murmur/Palpitations?denies.?Gastrointestinal:?Hemorrhoids?denies.?Stomach/Abdominal pain?denies.?Dark blood stool?denies.?Irritable bowel ?denies.?Constipation?denies.?Diarrhea?denies.?Hematology:?Swelling?admits.?Clots?denies.?Varicose Veins?denies.?Bruising?denies.?Bleeding problem?denies.?Genitourinary:?Blood urine?denies.?Frequent/Painfu/urination/bladder control?denies.?Kidney stones?denies.?Infection (UTI)?denies.?Nephropathy?denies.?sex trans dis (STD)?denies.?Prostate?denies.?Musculoskeletal:?Hammertoes?denies.?Bunions?denies.?Back Pain?denies.?Muscle Cramps/ Resting?denies.?Muscle cramps / walking?denies.?Generalized aches and pains?admits.?Weakness?denies.?Integ.:?Mahmood?denies.?Scars?denies.?Corns/calluses?denies.?Ingrown nails?admits.?Painful nails?denies.?Open Sores?denies.?Rashes?denies.?Neurologic:?Difficulty sleeping?denies.?Brain disorder?denies.?Numbness?admits.?Balance t rouble?denies.?Confusion?denies.?Fainting/blackouts?denies.?Tingling?admits.?Terry mors?denies.? * Medical History:? * Surgical History:?hysterecto my 10/30/13arpal tunnel surgery tumor removal appendectomy Pituitary sinus surgery 06/25/22 * [place]Major Diagno [place]ic [place] [place] [facility] [facility] [place] sinus surgery complication uncontrollable nose [place] [facility] [place] * Family History:?Mother: dece ased, diagnosed with Other malignant neoplasm of unspecified site.?Father: .?Paternal Grand Mother: arthritis, diagnosed with Other malignant neoplasm of unspecified site, Unspecified essential hypertension, Unspecified cerebral artery occlusion with cerebral infarction.?Paternal aunt: diagnosed with Other malignant neoplasm of unspecified site.?Paternal uncle: diagnosed with Other malignant neoplasm of unspecified site.? * Social History:?Tobacco Use:?Tobacco Use/Smoking?Are you a:?former smoker ?Additional Findings: Tobacco Non-User?Current non-smoker ?Tobacco use other than smoking?Are you an other tobacco user??No * Medications:?TakingClaritin Eye Drops hydrALAZINE HCl 25 MG Tablet 1 tablet with food Orally Three times a day Carvedilol 12.5 MG Tablet 1 tablet with food Orally Twice a day eliquis 5 mg Tablet Vitamin D Simvastatin 20 MG Tablet Orally Lisinopril 40 MG Tablet as directed Orally Once a day cloNIDine HCl 0.1 MG Tablet as directed Orally Spironolactone 25 MG Tablet 1 tablet Orally PARoxetine HCl 40 MG Tablet 1 tablet in the morning Orally Once a day zzzCompression Stockings 20-30mm Hg 1 pair closed toe- knee high . . . buPROPion HCl ER (SR) 100 MG Tablet Extended Release 12 Hour 1 tablet in the morning Orally Once a day Compression Stockings 20-30mm Hg closed toe- knee high 1 pair wear daily Latanoprost 0.005 % Solution Ophthalmic clonazePAM 0.5 MG Tablet Oral Brimonidine Tartrate 0.15 % Solution 1 drop into affected eye Ophthalmic every 8 hrs Extra Depth Orthopedic Shoes (1 Pair) with Customized Heat Molded Multidensity Innersoles (3 Pair) as directed Dx: NIDDM/Polyneuropathy (E11.42), Hammertoe Foot Deformity (M20.41,M20.42), Preulcerative Skin Lesion(s) (L85.1 Taking Claritin Taking Eye Drops Taking hydrALAZINE HCl 25 MG Tablet 1 tablet with food Orally Three times a day Taking Carvedilol 12.5 MG Tablet 1 tablet with food Orally Twice a day Taking eliquis 5 mg Tablet Taking Vitamin D Taking Simvastatin 20 MG Tablet Orally Taking Lisinopril 40 MG Tablet as directed Orally Once a day Taking cloNIDine HCl 0.1 MG Tablet as directed Orally Taking Spironolactone 25 MG Tablet 1 tablet Orally Taking PARoxetine HCl 40 MG Tablet 1 tablet in the morning Orally Once a day Taking zzzCompression Stockings 20-30mm Hg 1 pair closed toe- knee high . . . Taking buPROPion HCl ER (SR) 100 MG Tablet Extended Release 12 Hour 1 tablet in the morning Orally Once a day Taking Compression Stockings 20-30mm Hg closed toe- knee high 1 pair wear daily Taking Latanoprost 0.005 % Solution Ophthalmic Taking clonazePAM 0.5 MG Tablet Oral Taking Brimonidine Tartrate 0.15 % Solution 1 drop into affected eye Ophthalmic every 8 hrs Taking Extra Depth Orthopedic Shoes (1 Pair) with Customized Heat Molded Multidensity Innersoles (3 Pair) as directed Dx: NIDDM/Polyneuropathy (E11.42), Hammertoe Foot Deformity (M20.41,M20.42), Preulcerative Skin Lesion(s) (L85.1 Not-Taking/PRNCephalexin 500 MG Capsule 1 capsule Orally twice a day Doxycycline Hyclate 100 MG Tablet 1 tablet Orally Once a day Night Splint AFO - L1930 as directed Physical Therapy . . . . 2-3x/week LORazepam 0.5 MG Tablet 1 tablet as needed Orally every 6 hrs hydroCHLOROthiazide Paxil Atenolol 25 MG Tablet 2 Orally Once a day Colcrys 0.6 MG Tablet 1 tablet Orally Once a day Lidoderm 5 % Patch 1 patch to intact skin remove after 12 hours Externally Once a day Keflex 500 MG Capsule 1 capsule Orally Twice a day Medication List reviewed and reconciled with the patientNot-Taking/PRN Cephalexin 500 MG Capsule 1 capsule Orally twice a day Not-Taking/PRN Doxycycline Hyclate 100 MG Tablet 1 tablet Orally Once a day Not-Taking/PRN Night Splint AFO - L1930 as directed Not-Taking/PRN Physical Therapy . . . . 2-3x/week Not-Taking/PRN LORazepam 0.5 MG Tablet 1 tablet as needed Orally every 6 hrs Not-Taking/PRN hydroCHLOROthiazide Not-Taking/PRN Paxil Not- Taking/PRN Atenolol 25 MG Tablet 2 Orally Once a day Not-Taking/PRN Colcrys 0.6 MG Tablet 1 tablet Orally Once a day Not-Taking/PRN Lidoderm 5 % Patch 1 patch to intact skin remove after 12 hours Externally Once a day Not-Taking/PRN Keflex 500 MG Capsule 1 capsule Orally Twice a day Medication List reviewed and reconciled with the patient * Allergies:?Penicillinyes[All ergies Verified] Objective: * Vitals:?Ht: 5ft6in, Wt:239, BMI:38.57, Shoe size: 10W, BP:120/70mm Hg, BS: not taken, Ht-cm: 167.64 cm, Wt-k.41 kg. * ???Past Orders: ???Lab:HEMOGLOBIN A1C (GLYCO HEMOGLOBIN) (Order Date - 01/29/2024) (Collection Date & Time - 01/29/2024 09:33 AM) ? Value Reference Range ?HEMOGLOBIN A1C % (HH) 7.1 * Examination: ???General Examination: ?GENERAL APPEARANCE:?Reveals a pleasant, alert, well nourished, well- developed, well hydrated individual, who demonstrates proper attention to hygiene/body habitus, and is in no acute distress, Pt serves as own historian for office visit today.?ORIENTED:?person, place, and time.?FOOT EXAM:?Footwear Evaluation?Ophthalmology Referral: ?DIABETES EYE EXAM?Vascular: ?DP PULSES(B):?2/4, B/L.?PT PULSES(B):?2/4, B/L.?CAPILLARY FILL TIME:?immediate, all digits, B/L.?TEMPERTURE GRADIENT(C):?normal, warm to cool, proximal to distal, B/L, B/L.?Neurological: ?SENSORY:?Neurological exam demonstrates, reduced light touch sensation, reduced sharp/dull pin prick discrimination , reduced vibration sensation, 5.07 monofilament test performed at plantar aspects of 5 varied sites per foot shows sensation, absent, B/L, Pt relates, anesthesia, B/L,, shooting/radiating sensation, tingling, burning, hyperesthesia right groin distally to tips of?right toes.?Nails: ?NAILS are:?Elongated, overgrown, dystrophic , 1,3-5 Right foot , 1-5 Left foot.?Dermatologic: ?SKIN FINDINGS:?Skin exam reveals keratotic lesion(s) located at, SUB MTH (s), 5, B/L .?VERRUCA:?single , round, raised, flat-topped, petechial bleeding papulae(s), with cauliflower appearance and interrruption of sk1n lines, with pain to both direct and lateral compression, and size estimated at 2mm, plantar Midfoot, LEFT.?Orthopedic: ?MUSCLE STRENGTH:?Decreased with DF, Right, Drop foot, Right.?GAIT ABNORMALITY:?antalgic, unstable/unsteady relating occasional difficulty with balance.?DIGITAL DEFORMITIES:?Digital contracture, PIPJ, 2-5 B/L, incompl-reducible to push-up test, no over, nor underlapping, with evidence of shoe producing skin irritation.?FOOTWEAR:?worn, non-supportive, shoe gear properties exacerbate patient's foot/toe deformity.? Assessment: * Assessment: 1.?Other viral warts - B07.8 ???2.?Right foot drop - M21.371 (Primary)???Specify :Dx New problem, Prognosis Uncertain (4) Acute problem, Complicated w/ Multiple Tx Options(4)???3.?Pain in left foot - M79.672???4.?Type 2 diabetes mellitus with diabetic polyneuropathy - E11.42???5.?Injury of right peroneal nerve, initial encounter - S84.11XA???6.?Neuritis - M79.2??? Plan: * Treatment: 2.?Type 2 diabetes mellitus with diabetic polyneuropathy?Procedure: 38923-YJYJ SKIN LESIONS, 2 TO 4 ?Procedure: Z7170-FCTHYEZI DYSTROPHIC NAILS ANY # * Procedures:?Keratoma Treatment:?Parring or Cutting of Benign Hyperkeratotic Lesion(s)?(-56) 2-4 Lesions - Due to the at risk nature of the patients medical condition as documented in the exam findings, performance of this keratoderma treatment is medically necessary as its management by an unskilled/untrained nonprofessional would put this patients foot and overall health at risk. Therefore, the benign hyperkeratotic lesions, (2_ ) in total, locations as stated and described in the exam ( sub 5th b/l_ ), were pared, and/or cut utilizing a sterile 15 blade, tissue nippers, and/or power dremel instrumentation by the physician of record - 98919.?Wart Treatment:?Procedure?Verrucae(s) were debrided to pin-point bleeding margins with sterile surgical blade, silver nitrate chemocautery applied, recomm. immune-boosting meds such as zinc, recomm. follow up with topical chemosurgical agents, Pt STILL, CONT, defers any other forms of tx (92217), DIABETES: Any more invasive procedure to wart deferred due to diabetes risk.?Nail Reduction:?Nail Reduction?(-27) Trimming of all dystrophic nails - Due to the at risk nature of the patients medical condition as documented in the exam findings, performance of this nail treatment is medically necessary as its management by an unskilled/untrained nonprofessional would put this patients foot and overall health at risk. Therefore, the dystrophic nails, in locations as stated and described in the exam ( 1-5 b/l ), were debrided by the phisician of record to reduce/remove overall nail length and girth, by manual and electrical means with use of a nail nipper and/or dremel, to more viable healthy nail plate or bed tissue - G0127.? * Procedure Codes:?53668 Wart Destruction, 1-14, Modifiers: XS G0127 TRIMMING DYSTROPHIC NAILS ANY #, Modifiers: XS 08571 TRIM SKIN LESIONS, 2 TO 4, Modifiers: XS * Preventive Medicine:? ??Counseling:?Discussion:?-14: Office or other outpatient visit for the evaluation and management of an established patient, which required a medically appropriate history and/or examination and MODERATE level of DECISION MAKING for: 1 OR MORE CHRONIC PROBLEM(S) THATS WORSENING, 2 STABLE CHRONIC PROBLEMS, A NEWLY DIAGNOSED PROBLEM WITH UNCERTAIN PROGNOSIS, AN ACUTE COMPLICATED INJURY WITH MULTIPLE TREATMENT OPTIONS, OR AN ACUTE PROBLEM WITH ACCOMPANYING SYSTEMIC SYMPTOMS, THAT POSE(S) A MODERATE RISK OF MORBIDITY. THIS CONDITION MAY ALSO INCLUDE RX DRUG MANAGEMENT, OR A DECISON FOR MINOR SURGERY. The visit on the day of the encounter encompassed interpreting the data and educating the patient as to the nature of their condition, treatment options available according to their individual PMH, meds, allergies, and overall health/living conditions, as well as any potential risks or complications that may occur from a failure to adhere to, and participate in, the recommended course of therapy. The discussion included a complete verbal, and/or written explanation of the examination results, any x-rays taken, the proposed diagnosis, and outline of the treatment plan. A schedule for future care needs was also explained. The patient verbalized an understanding of the instructions at this time and agreed to be an active participant in their treatment. If the patient should think of any questions or concerns after the visit, I have encouraged the patient to call the office.?Consult:?The patient was counseled on the diagnosis, treatment options, and the need for a, Neurology Consult, Pt indicated understanding the recommendations and accepts this treatment plan. The patient would like to make their appt themself.?BioMech.:?I discussed the Pts foot biomechanics with them and how it relates to their problem, recomm. an AFO brace to help address their issues. Ot relates she was rx one at pain management and has an appointment scheduled for later this week.?Neuritis/Neuropathy:?The patient was counseled on the diagnosis, possible etiologies (including mechanical stress, injury, entrapment, chemotherapy, diabetes, vertebral disk herniation if hx), treatment options, and importance for adherence to recommendations in order to address the patients Neuritis/Neuropathy. The advantages and disadvantages re: Accomidative mechanical support/offloading, Topical vs PO analgesics including aspercream/Voltaren gel/Lidoderm patches/Neurontin/Lyrica along with their potential side effects were discussed with the patient to their satisfaction. Also discussed the use of therapeutic injectable cortisone if needed. Surgical treatment, if considered an option, was discussed as well. If surgery is warranted, we discussed the potential successful outcomes as well as the possible complications such as failure, painful scar, permanent tingling/numbness/neuralgea/or intractable pain. Patient questions re: medication use, dosage, and possible side effects and drug interactions were reviewed and the answers to each understood. If the condition worsens, the patient was instructed to contact the office for an appointment. The patient verbally confirmed a full understanding of the above, Discussed Neurontin, Recommened Neuro Consult.? * Follow Up:?3 Months * Images: * Sign off status: Completed true * Provider:?Jayashree Fink DPM Date:?2023 Generated for Kun pelayo/Isaiah/Alok on:?10/20/2024 02:49 PM EST History and Physical Notes * HPI (History of Present Illness) Category Sub-Category Detail Notes Category Not es Wart Pt States Last PCP Visit: Date:: 08/13/2024 At Risk footcare Pt States Last PCP Visit: Date: 4 Foot Pain Nature: drop foot, radia ting, sharp, shooting right Location: RIGHT Treatments: Pain management Examination Category Sub-Category Detail Notes Category Not es Neurological SENSORY: Neurological exa m demonstrates, reduced light touch sensation, reduced sharp/dull pin prick discrimination , reduced vibration sensation, 5.07 monofilament test performed at plantar aspects of 5 varied sites per foot shows sensation, absent, B/L, Pt relates, anesthesia, B/L,, shooting/radiating sensation, tingling, burning, hyperesthesia right groin distally to tips of right toes Dermatologic SKIN FINDINGS: Skin exam reveal s keratotic lesion(s) located at, SUB MTH (s), 5, B/L VERRUCA: single , round, rais ed, flat-topped, petechial bleeding papulae(s), with cauliflower appearance and interrruption of sk1n lines, with pain to both direct and lateral compression, and size estimated at 2mm, plantar Midfoot, LEFT Orthopedic GAIT ABNORMALITY: antalgic, unst able/unsteady relating occasional difficulty with balance FOOTWEAR: worn, non-supportive , shoe gear properties exacerbate patient's foot/toe deformity DIGITAL DEFORMITIES: Digital contracture , PIPJ, 2-5 B/L, incompl-reducible to push-up test, no over, nor underlapping, with evidence of shoe producing skin irritation MUSCLE STRENGTH: Decreased with DF, R ight, Drop foot, Right General Examination GENERAL APPEARANCE: Reveals a pleasant, alert, well nourished, well-developed, well hydrated individual, who demonstrates proper attention to hygiene/body habitus, and is in no acute distress, Pt serves as own historian for office visit today FOOT EXAM: Lower Extremity Neurological Exa m performed:: Yes ORIENTED: person, place, and t claudio Footwear Evaluation Footwear Evaluation performe d:: Yes Ophthalmology Referral DIABETES EYE EXAM Procedure Perform ed:: Yes ?Date of Exam Performed: 04/30/2024 Diabetic Retinopathy Screening:: Yes Findings of Diabetic Eye Exam:: no retin opathy Vascular DP PULSES (B): 2/4, B/L PT PULSES (B): 2/4, B/L CAPILLARY FILL TIME: immediate, all digi ts, B/L TEMPERTURE GRADIENT (C): normal, warm to cool, proximal to distal, B/L, B/L Nails NAILS are: Elongated, overg rown, dystrophic , 1,3-5 Right foot , 1-5 Left foot Abscess/infected nail INSPECTION
== END 2024-10-20 14:09 | disposition home or self-care (01) ==
PROVIDERS: PCP Internal Medicine; Visit Provider Nurse Practitioner Family
DX: M21.371 Foot drop, right foot (principal); M16.11 Unilateral primary osteoarthritis, right hip; M54.17 Radiculopathy, lumbosacral region; M51.369 Other intervertebral disc degeneration, lumbar region without mention of lumbar back pain or lower extremity pain
CPT/HCPCS: 99214; G2211

== ENCOUNTER → 2024-10-20 13:05 | Outpatient (BNVA) | payer MEDICARE, BC, OTHER, SELFPAY | PROVIDERS: PCP Internal Medicine; Visit Provider Nurse Practitioner Family | DX: M21.371 Foot drop, right foot (principal); M16.11 Unilateral primary osteoarthritis, right hip; M54.17 Radiculopathy, lumbosacral region; M51.369 Other intervertebral disc degeneration, lumbar region without mention of lumbar back pain or lower extremity pain | CPT/HCPCS: 99212 ==

== ENCOUNTER 2024-12-02 09:58 | Outpatient (AMB) | payer MEDICARE, BC, OTHER, SELFPAY ==
--- NOTE | 2024-12-02 10:03 | HO.NEPHOV_ITS ---
Vital Signs 12/02/24 10:05 Height 5 ft 6 in Weight 233 lb BMI 37.6 BP 150/80 H Blood Pressure Location Lt brachial Position Sitting Pulse 83 Pulse Source Pulse Oximeter Pulse Oximetry (%) 95 Oxygen Delivery Method Room Air Intake Visit Reasons: 6 mon follow up-[facility] Patient Partner Required: No Accompanied by: Self / Same As Patient Allergies nifedipine [NIFEDIPINE] Allergy (Unknown, Verified 12/02/24 10:04) UNKNOWN- DOES NOT REMEMBER Pt states no known allergy to Allergy (Unknown, Uncoded 09/02/24 08:47) n/a HPI Comments Details: Josefina was seen in follow-up of her hypertension. In the past she has H/O COVID and had chest pain leading to cardiac catheterization. She has a new right foot drop. She is going to see Dr Riggins. She has family history of bladder cancer & had a cystoscopy which was negative. She denies nausea, vomiting, diarrhea, shortness of breath, paroxysmal nocturnal dyspnea, orthopnea, pedal edema or urinary symptoms. She is compliant with her medications. She avoids nonsteroidal anti-inflammatories tries to minimize sodium in the diet. All other systems have been reviewed and were negative. 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 Patient Tobacco Use Status: Former Tobacco user Advance Directives Date on File: 07/03/22 service: No Current occupational status: retired Review of Systems Const All systems reviewed & are unremarkable except as noted in HPI and below Physical Exam Vital Signs: Last Vital Signs Pulse 83 12/02/24 10:05 BP 150/80 H 12/02/24 10:05 Pulse Ox 95 12/02/24 10:05 Oxygen Delivery Method Room Air 12/02/24 10:05 BMI result Body Mass Index 37.6 Const General: comfortable and no acute distress Orientation/consciousness: patient oriented x3 HEENT Head: Yes normocephalic Mouth: Normal oral and palatal mucosa present Eyes EOM: EOMs intact bilaterally Neck Neck: Yes supple Resp Auscultation: clear to auscultation bilaterally Cardio Jugular venous distension: no JVD Rate: regular rate Heart sounds: Murmur heart sound present GI Palpation (GI): Soft to palpation Auscultation: normal bowel sounds General: Yes no CVA tenderness Back/Spine/Pelvis Back: no CVA tenderness Skin General skin exam: no rashes or lesions noted Neuro General: patient oriented x3 and moves all extremities Extrem Other: Right foot has a brace Results Reviewed Nephrology Results: No Data to Display Assessment & Plan Assessment & Plan (1) Essential hypertension: Code(s): I10 - Essential (primary) hypertension Category: Medical Plan Josefina has longstanding hypertension. She is prediabetic. She has not lost any weight. She has not on any oral hypoglycemic agents. She had a 24 hour ambulatory blood pressure monitor which showed uncontrolled blood pressure. She has history of diastolic dysfunction. Her volume status is optimal. Her orthostatic symptoms have improved after I decreased her Carvedilol to 12.5 mg bid. She has not known to have proteinuria but is known to have atherosclerotic cardiovascular disease. She is tolerating LINDY inhibitor well. Her renal functions had been stable . She tries to maintain good hydration. She needs to lose some weight. She should maintain low-sodium diet, continued lifestyle modifications and avoidance of nonsteroidal anti-inflammatories. I did not make any medication changes. Answered all questions. Follow-up given Orders: Orders Electrolytes 6 Months I10 - Essential (primary) hypertension Blood Urea Nitrogen 6 Months I10 - Essential (primary) hypertension Creatinine 6 Months I10 - Essential (primary) hypertension Coding Level of Care Code Est Pt Level 4 (09474) Diagnoses Essential hypertension I10
[2024-12-02 10:05] VITALS: BP 150/80; PULSE 83; O2SAT 95; BMI 37.6
--- OUTSIDE RECORDS SUMMARY | 2024-12-02 11:44 | XMS_ITS ---
Author Organization [facility] Address [address] [place] [address] Care Team Providers Care Inspector Precision Name Role Phone Radu Welch MD Primary Care Provider Pearl susan AleksLizzye Unavailable [phone] REASON FOR VISIT r/s Encounters Encounter Location Date Provider Diagnosis [address] [address] 11/18/2024 Jayashree Fink Plan Of Treatment Next Appt Details Provider Name:Jayashree Pressley Aleks , 01/18/2025 08:15:00 AM, [address] [place] [address], [phone], Progress Notes * Alivia WILDEOB:03/1955 (69 yo F)Acc No.[id number]:11/18/2024 Patient:?Trisha WILDE :1955???Age:69 Y???Sex:Female Address:[address] [place] [address], [place] [address] * true * Date:? Generated for Sandrinei gita/Isaiah/eTransmitting on:?12/02/2024 11:44 AM EST
--- OUTSIDE RECORDS SUMMARY | 2024-12-02 11:44 | XMS_ITS ---
Author Organization [facility] Address [address] [place] [address] Care Team Providers Care Punching Machine Operator Name Role Phone Radu Welch MD Primary Care Provider Jayashree Martinez [phone] REASON FOR VISIT Seen Sooner Encounters Encounter Location Date Provider Diagnosis [address] [address] 09/17/2024 Jayashree Fink Plan Of Treatment Next Appt Details Provider Name:Jayashree Pressley Aleks , 01/18/2025 08:15:00 AM, [address] [place], [address], Progress Notes * Ceferino ESTEVESineDOB:03/1955 (69 yo F)Acc No.[id number]:09/17/2024 Progress Note Patient:?CHANI Trisha mosqueda Provider:?Jayashree Fink DPM :1955???Age:69 Y???Sex:Female D ate:09/17/2024 Address:[address] [place] [address], [id number] Pcp:Radu Welch MD Subjective: * Chief Complaints: [...] Fink DPM Date:?2023 Generated for Kun pelayo/Isaiah/Alok on:?12/02/2024 11:44 AM EST
--- OUTSIDE RECORDS SUMMARY | 2024-12-02 11:44 | XMS_ITS ---
Author Organization [facility] Address [address] [place] [address] Care Team Providers Care Yoga Coordinator Name Role Phone Radu Welch MD Primary Care Provider Jayashree Martinez [phone] REASON FOR VISIT Seen Sooner Encounters Encounter Location Date Provider Diagnosis [address] [address] 10/12/2024 Jayashree Fink Plan Of Treatment Next Appt Details Provider Name:Jayashree Pressley Aleks , 01/18/2025 08:15:00 AM, [address] [place], [address], Progress Notes * Alivia ESTEVESOB:03/1955 (69 yo F)Acc No.[id number]:10/12/2024 Progress Note Patient:?Trisha ESTEVES Provider:?Jayashree Fink DPM :1955???Age:69 Y???Sex:Female D ate:10/12/2024 Address:[address] [place] [address], [id number] Pcp:Radu Welch MD Subjective: * Chief Complaints: [...] Fink DPM Date:?2024 Generated for Kun pelayo/Isaiah/Alok on:?12/02/2024 11:44 AM EST
--- OUTSIDE RECORDS SUMMARY | 2024-12-02 11:44 | XMS_ITS | Clinical Summary ---
Author Organization [facility] Address [address] [place] [address] Phone Care Team Providers Care Clay Products Machine Operator Name Role Phone Radu Welch MD Primary Care Provider [phone] Allergies No known active allergies Medications lisinopril [...] also be consided for placement of a security guards dispatcher. They can see their dentist or an [...] average glucose, using the formula of the T3I-Ozsrwgr Average Glucose study (ADAG), Diabetes Care, Vol.31,#8, [...] Most Recently Relevant to Health Maintenance Insurance [facility] MEDICARE [facility] MEDICARE [facility] Care Teams Clay Products Machine Operator Relationship Specialty Start Date End Date Radu Welch MD [address] [place] PCP - General 10/10/20
--- OUTSIDE RECORDS SUMMARY | 2024-12-02 11:45 | XMS_ITS | Patient Health Record ---
Author Organization [facility] Address [address] [place] [address] Care Team Providers Care Calculus Teacher Name Role Phone Radu Welch MD Primary Care Provider Unavaila susan FinkLizzye Unavailable [phone] Allergies Allergen (clinical drug ingredient) Drug/Non Drug [...] Problem Acquired hammer toe of right foot (7328579098603755 ) Other hammer toe(s) (acquired), right foot (M20.41) Active confirmed Problem Acquired hammer toe of left foot (8734639293997182 ) Other hammer toe(s) (acquired), left foot (M20.42) Active confirmed Problem Localized, primary osteoarthritis of the ankle and/or foot (707765639) Primary osteoarthritis, left ankle and foot (M19.072) Active confirmed Problem Polyneuropathy due to type 2 diabetes mellitus (498525513) Type 2 diabetes mellitus with diabetic polyneuropathy (E11.42) Active confirmed Problem 666262372 Hammer toe of right foot (M20.41) Active confirmed Problem 297255048 Hammer toe of left foot (M20.42) Active confirmed Problem 640427284 Equinus contracture of left ankle (M24.572) Active confirmed Problem 426359483 Equinus contracture of right ankle (M24.571) Active confirmed Problem Diabetic foot ulcer (248414384) Skin ulcer of toe of right foot, limited to breakdown of skin (L97.511) Active confirmed Problem Diabetic foot ulcer (347794840) Skin ulcer of toe of right foot with fat layer exposed (L97.512) Active confirmed Problem Diabetic foot (717346069) Skin ulcer of toe of left foot with fat layer exposed (L97.522) Active confirmed Problem 60341615 Essential hypertension (I10) Active confirmed Vital Signs Blood pressure diastolic 70 mm Hg 09/14/2024 Height 5ft6in in 09/14/2024 Blood pressure systolic 120 mm Hg 09/14/2024 Weight 239 lbs 09/14/2024 BMI 38.57 kg/m2 09/14/2024 Procedures Procedure Date Ordered Date Performed Result Body Sit e 00914-AUNUDKQ SKIN/TISSUE 12/05/2023 N/A 83618-UGNJ SKIN LESIONS, 2 TO 4 12/05/2023 N/A R2786-NHSPFEVK DYSTROPHIC NAILS ANY # 12/05/2023 N/A 83662-Xtvt Destruction, 1-14 12/23/2023 N/A 91263- Debride <25 sq cm 12/23/2023 N/A 18935-QHDT SKIN LESIONS, 2 TO 4 12/23/2023 N/A A5716-RFWXHPIO DYSTROPHIC NAILS ANY # 12/23/2023 N/A 49627-Iubu Destruction, 1-14 03/16/2024 N/A 45273-Vkytoubx Plate 03/16/2024 N/A 40848-PAUI SKIN LESIONS, 2 TO 4 03/16/2024 N/A S6458-UXRGCVBM DYSTROPHIC NAILS ANY # 03/16/2024 N/A 06735-Caxs Destruction, 1-14 06/22/2024 N/A 38431-VEWU SKIN LESIONS, 2 TO 4 06/22/2024 N/A N2864-FYNHERWW DYSTROPHIC NAILS ANY # 06/22/2024 N/A 80470-Baed Destruction, 1-14 09/14/2024 N/A 29332-QSUM SKIN LESIONS, 2 TO 4 09/14/2024 N/A P2331-ETODLDMI DYSTROPHIC NAILS ANY # 09/14/2024 N/A Encounters Encounter Location Date Provider Diagnosis [address] [address] 12/05/2023 Jayashree Black Type 2 diabetes mellitus with diabetic polyneuropathy E11.42 and Skin ulcer of toe of right foot with fat layer exposed L97.[address] [address] 12/23/2023 Jayashree Black Other viral warts B07.8 ; Pain in left foot M79.672 ; Type 2 diabetes mellitus with diabetic polyneuropathy E11.42 and Skin ulcer of toe of right foot, limited to breakdown of skin L97.[address] [address] 03/16/2024 Jayashree Black Other viral warts B07.8 ; Pain in left foot M79.672 ; Type 2 diabetes mellitus with diabetic polyneuropathy E11.42 ; Other hammer toe(s) (acquired), left foot M20.42 ; Other hammer toe(s) (acquired), right foot M20.41 and Ingrown nail L60.[address] [address] 06/22/2024 Jayashree Black Other viral warts B07.8 ; Other hammer toe(s) (acquired), right foot M20.41 ; Pain in left foot M79.672 ; Type 2 diabetes mellitus with diabetic polyneuropathy E11.42 ; Other hammer toe(s) (acquired), left foot M20.42 and Ingrown nail L60.[address] [facility] [address] 09/14/2024 Jayashree Fink Other viral warts B07.8 ; Right foot drop M21.371 ; Pain in left foot M79.672 ; Type 2 diabetes mellitus with diabetic polyneuropathy E11.42 ; Injury of right peroneal nerve, initial encounter S84.11XA and Neuritis M79.[address] [address] 01/24/2024 Jayashree Aleks [address] [address] 09/14/[address] [address] 11/18/2024 Jayashree Fink Assessments Encounter Date Diagnosis (ICD Code) Assessment Notes Treatment Notes Treatment Clinical Notes Section Notes 12/23/2023 Other viral warts (ICD-10 - B07.8) 12/23/2023 Pain in left foot (ICD-10 - M79.672) 12/05/2023 Type 2 diabetes mellitus with diabetic polyneuropathy (ICD-10 - E11.42) 03/16/2024 Other viral warts (ICD-10 - B07.8) 06/22/2024 Other hammer toe(s) (acquired), right foot (ICD-10 - M20.41) Patient Educated with: DIABETIC FOOT CARE INSTRUCTIONS. pdf (DIABETIC FOOT CARE INSTRUCTIONS. pdf) 06/22/2024 Other viral warts (ICD-10 - B07.8) [...] - L97.512) Patient Educated with: WOUND CARE INSTRUCTIONS. pdf (WOUND CARE INSTRUCTIONS. pdf) 12/23/2023 Type 2 diabetes mellitus with diabetic polyneuropathy (ICD-10 - E11.42) 12/23/2023 Skin ulcer of toe of right foot, limited to breakdown of skin (ICD-10 - L97.511) Patient Educated with: WOUND CARE INSTRUCTIONS. pdf (WOUND CARE INSTRUCTIONS. pdf) 03/16/2024 Type 2 diabetes mellitus with diabetic [...] M20.41) Patient Educated with: DIABETIC FOOT CARE INSTRUCTIONS. pdf (DIABETIC FOOT CARE INSTRUCTIONS. pdf) 03/16/2024 Ingrown nail (ICD-10 - L60.0) 06/22/2024 Ingrown nail (ICD-10 - L60.0) 09/14/2024 Neuritis (ICD-10 - M79.2) 12/05/2023 Other 12/23/2023 Other 03/16/2024 Other 09/14/2024 Other Plan Of Treatment Pending Test Test Name Order Date 15341-Ignn Destruction, -07/20/2019 15487-Xlhf Destruction, -01/18/2020 78786-Zkex Destruction, 10-1304/18/2020 96104-Hxbq Destruction, 10-1307/07/2020 39413-Gfdw Destruction, 10-1310/13/2020 25058-Jzcc Destruction, 10-1301/12/2021 70992-Xgku Destruction, 10-1305/15/2021 84887-Vwqz Destruction, 1-14 08/31/2021 53745-Eely Destruction, 1-14 11/28/2021 76057-Uoty Destruction, 1-14 03/29/2022 52307-Dyki Destruction, 1-14 07/02/2022 90156-Aypi Destruction, 1-14 10/11/2022 22825-Ijml Destruction, 1-14 04/25/2023 33406-Kmxa Destruction, 1-14 08/05/2023 66784-Hnzk Destruction, 1-14 01/17/2023 94537-Duih Destruction, 1-14 12/23/2023 56694-Rnwz Destruction, 1-14 03/16/2024 23221-Ptla Destruction, 1-14 06/22/2024 29037-Easf Destruction, 1-14 09/14/2024 32626-Gntnmmgx Plate 03/16/2024 94358-Svwqysao Plate 08/05/2023 08515-Plkhghew Plate 01/17/2023 42893-Bwtvybki Plate 03/29/2022 81547-Lbkyfclt Plate 11/28/2021 21765-Lojdvlya Plate 08/31/2021 56193-Qravldix Plate 05/15/2021 70374-Pkzyhdwb Plate 01/12/2021 22711-Wndhjucf Plate 04/18/2020 42554-Txncyjxa Plate Each Additional 52511-LQF 11/21/2023 15655- Debride <25 sq cm 12/23/2023 52216-NECFXTZ SKIN/TISSUE 12/05/2023 30379-DMKC SKIN LESIONS, 2 TO 4 12/05/19 41574-MIKJ SKIN LESIONS, 2 TO 4 08/05/20 88754-YTYX SKIN LESIONS, 2 TO 4 01/18/20 65419-WMNT SKIN LESIONS, 2 TO 4 10/11/19 98207-BJCO SKIN LESIONS, 2 TO 4 07/02/20 44042-WOXZ SKIN LESIONS, 2 TO 4 12/23/19 04795-CARB SKIN LESIONS, 2 TO 4 04/25/20 50633-YYFN SKIN LESIONS, 2 TO 4 03/16/20 51159-MMTF SKIN LESIONS, 2 TO 4 12/16/20 24 33058-SYOR SKIN LESIONS, 2 TO 4 06/22/20 24 79459-EBWP SKIN LESIONS, 2 TO 4 04/18/20 75652-JRRN SKIN LESIONS, 2 TO 4 01/18/20 24232-TVTG SKIN LESIONS, 2 TO 4 07/20/20 19 73178-XPLO SKIN LESIONS, 2 TO 4 07/07/20 53474-DMLJ SKIN LESIONS, 2 TO 4 10/13/19 57201-VUJQ SKIN LESIONS, 2 TO 4 01/13/20 08317-QWFQ SKIN LESIONS, 2 TO 4 05/15/20 45893-XRGA SKIN LESIONS, 2 TO 4 08/31/20 81420-YBBX SKIN LESIONS, 2 TO 4 11/29/19 81331-BCMO SKIN LESIONS, 2 TO 4 03/29/20 D6573-BHJMRFFF DYSTROPHIC NAILS ANY # V8133-ZWQTMROQ DYSTROPHIC NAILS ANY # T5833-ERBFGFXY DYSTROPHIC NAILS ANY # B9326-NWXIZEGO DYSTROPHIC NAILS ANY # G1720-DPHTMCUV DYSTROPHIC NAILS ANY # L5041-HOUEDBET DYSTROPHIC NAILS ANY # Y2966-LKJRXXYR DYSTROPHIC NAILS ANY # T0080-DJAGNFIQ DYSTROPHIC NAILS ANY # C6341-JZAMCDZM DYSTROPHIC NAILS ANY # H8969-DTVTPFSK DYSTROPHIC NAILS ANY # P8648-MYSBVJYF DYSTROPHIC NAILS ANY # E8984-HMJXMJCY DYSTROPHIC NAILS ANY # T6256-DMHLFHMF DYSTROPHIC NAILS ANY # A7977-PQCYKTBP DYSTROPHIC NAILS ANY # X5257-XKTIUAIP DYSTROPHIC NAILS ANY # B6415-PIDVHMWA DYSTROPHIC NAILS ANY # E0755-KKYGADOL DYSTROPHIC NAILS ANY # W7138-SHABEIUC DYSTROPHIC NAILS ANY # Y7118-NWMBQXIU DYSTROPHIC NAILS ANY # H6463-DWNDMZEL DYSTROPHIC NAILS ANY # Next Appt Details Provider Name:Jayashree Pressley Aleks , 01/18/2025 08:15:00 AM, [address] [place], [address], Insurance Providers Payer Name Payer Address Payer Phone Subscriber Number Group Number Insured Name Patient Relationship to Insured Coverage Start Date Coverage End Date Medicare National [employer] [address] [place] [phone] [id number] Josefina Wilde Self - patient is the insured [facility] [address] [place] [address] [id number] Josefina Wilde Self - patient is the insured for Life [address] [place] [address] [phone] [id number] MAINE WILDE Spouse - patient is the spouse of the insured Medical (General) History Medical History History ICD Code hypertension depression Arthritis Anxiety disorder Glaucoma Neuropathy Chicken pox Back,Hip,and Knee pain Carpal tunnel NIDDM type II diabetes Surgical History Surgery Date(Month/Year) hysterectomy 10/30/13 carpal tunnel surgery tumor removal appendectomy Pituitary sinus surgery 06/25/22 Hospitalization History Reason Date(Month/Year) [place] [facility] [place] Foot pain 08/23 [facility]- 3 days sinus surgery complication uncontrollable nose bleed 2021 [facility]- covid 09/2021
--- OUTSIDE RECORDS SUMMARY | 2024-12-02 11:45 | XMS_ITS | Patient Health Record ---
Author Organization [facility] Address [address] [place] [address] Care Team Providers Care Keeper Helper Name Role Phone TONY GARCES M.D. Primary Care Provider Unavaila Felicia Pool Unavailable [phone] Reason For Referral No Information Medications Medication SIG (Take, Route, Fr equency, Duration) Notes Start Date End Date Status Simvastatin 20MG 1 ORAL daily for -3 [facility] 09/09/2012 Active Spironolactone 25MG 1 ORAL daily for -3 [facility] 07/08/2013 Active Terazol 7 0.4 % 1 application at bed time Vaginal Once a day for 7 day(s) 05/10/2015 Active LORazepam 0.5 MG 1 tablet as needed O rally Twice a day Active Atenolol 50MG 1 ORAL DAILY for -3 [facility] 09/09/2012 Active cloNIDine HCl 0.1MG 1 ORAL twice daily for -3 [facility] 08/30 Active Lisinopril 40MG 1 ORAL daily for -3 [facility] 09/09/2012 Active PARoxetine HCl 40MG 1 ORAL daily for -3 [facility] 09/09/2012 Active Problems Problem Type SNOMED Code ICD Code Onset Dates Problem Status W/U Status Risk Notes Problem Hyperlipidemia (87298718) Other and unspecified hyperlipidemia (272.4) Active confirmed Major Problem Depressive disorder (05164544) Depressive disorder, not elsewhere classified (311) Active confirmed Major Problem Glaucoma (65354002) Unspecified glaucoma (365.9) Active confirmed Diag Problem Benign essential hypertension (5399245) Essential hypertension, benign (401.1) Active confirmed Major Problem Female genital organ symptoms (875608341) Other specified symptom associated with female genital organs (625.8) Active confirmed Major Problem Postmenopausal bleeding (75089244) Postmenopausal bleeding (627.1) Active confirmed Diag Problem Menopausal symptom (36057780) Symptomatic menopausal or female climacteric states (627.2) Active confirmed Major Problem Left lower quadrant pain (187053838) Abdominal pain, left lower quadrant (789.04) Active confirmed Diag Problem Gynecological examination normal (904794726126704) Routine gynecological examination (V72.31) Active confirmed Problem Screening for malignant neoplasm of colon (224395231) Special screening for malignant neoplasms, colon (V76.51) Active confirmed Major Plan Of Treatment Pending Test Test Name Order Date Bone Density 10/19/2016 Urine Culture and Sensitivity 05/10/2015 Insurance Providers Payer Name Payer Address Payer Phone Subscriber Number Group Number Insured Name Patient Relationship to Insured Coverage Start Date Coverage End Date [employer] [address] [place] [address] [id number] JUNE ESTEVES Self - patient is the insured [facility] [address] [place], [place] [id number] JUNE ESTEVES Self - patient is the [...] TONSILLECTOMY APPENDECTOMY PITUITARY GLAND, [facility]OR [facility]CISION [facility] Hospitalization History Reason Date(Month/Year) CHILD SEE SURGICAL HX
--- OUTSIDE RECORDS SUMMARY | 2024-12-02 11:45 | XMS_ITS ---
Author Organization [facility] Address [address] [place] [address] Care Team Providers Care Geospatial Extractor Analysis Name Role Phone Radu Welch MD Primary Care Provider Unavaila ble Good Berry Unavailable [phone] Allergies Allergen (clinical drug ingredient) Drug/Non Drug Allergy documented on EMR Reaction Allergy Type Onset Date Status nifedipine NIFEdipine Unknown Drug Allergy Activ e REASON FOR VISIT patient presents today for screening colon Medications Medication SIG (Take, Route, Frequency, Duration) Notes Start Date End Date Status Spironolactone 25 MG Oral for 90 Active Eliquis 5 MG TAKE 1 TABLET BY MOUTH TWICE DAILY Oral for 90 I2510,Unavaila ble Active clonazePAM 0.5 MG TAKE 1 TABLET BY MOUTH DAILY NEEDED FOR ANXIETY Oral for 30 Active hydrALAZINE HCl 25 MG TAKE 1 TABLET BY MOUTH THREE TIMES DAILY Oral for 90 I2510,Unavaila ble Active Carvedilol 12.5 MG TAKE 1 TABLET BY MOUTH TWICE DAILY Oral for 90 I2510,Unavaila ble Active PARoxetine HCl 40 MG 1 tablet in the morning Orally Once a day Active Lisinopril 20 MG 2 tablet Orally Once a day Active Simvastatin 20 MG 1 tablet in the evening Orally Once a day Active Latanoprost 0.005 % INSTILL ONE DROP INTO BOTH EYES AT BEDTIME Ophthalmic for 75 Active Brimonidine Tartrate 0.2 % INSTILL 1 DROP IN BOTH EYES TWICE DAILY Ophthalmic for 25 Active Vitamin D 2000 UNIT 1 tablet Orally Once a day Active Problems Problem Type SNOMED Code ICD Code Onset Dates Problem Status W/U Status Risk Notes Problem Constipation (38909872) Constipation (K59.00) Active confirmed Problem Long-term current use of anticoagulant (267223767) Anticoagulant long-term use (Z79.01) Active confirmed Vital Signs Blood pressure systolic 00 mm Hg 10/27/19 25 Blood pressure diastolic 00 mm Hg 025 Height 66 in 10/27/2024 Weight 233 lbs 10/27/2024 BMI 37.60 kg/m2 10/27/2024 Encounters Encounter Location Date Provider Diagnosis [facility] [address] [place] [address] 10/27/2024 Good Berry History of adenomato us polyp of colon Z86.010 ; Constipation K59.00 ; Encounter for screening for malignant neoplasm of colon Z12.11 ; Pre-procedural examination Z01.818 and Anticoagulant long-term use Z79.01 Assessments Encounter Date Diagnosis (ICD Code) Assessment Notes Treatment Notes Treatment Clinical Notes Section Notes 10/27/2024 History of adenomatous polyp of colon (ICD-10 - Z86.010) Overall, June seems to be doing well from a GI standpoint. Given her history of tubular adenomas of the colon and Her last colonoscopy being 6 years ago, I did recommend a followup colonoscopy for further screening purposes. We did review the rationale for this in regard to colon cancer prevention. Full consent was obtained for this, including risks of bleeding and perforation. The procedure will be done with monitored anesthesia care. She was given the below instructions regarding adjustment of her medication for the procedure. In regard to her constipation I did recommend beginning a trial of daily MiraLax and/or Metamucil fiber pills with plenty of water. I advised her to use a p.r.n. laxative every second or third day if she does become constipated. Lastly, I did advise her to check in with you before her next appointment with you in October in regard to the foot drop and having some blood work to check her blood sugars in the event she has developed some diabetic neuropathy as a cause of her foot drop. June was comfortable with this plan. Thank you again for allowing me to participate in June's care. I shall continue to keep you advised of her progress. 10/27/2024 Constipation (ICD-10 - K59.00) Start taking 1/2 or 1 scoop of Miralax every day to help with constipation You can take 2 Metamucil fiber pills once or twice a day with a lot of water for the constipation Use the Senokot laxative as needed after 2-3 days of constipation Overall, June seems to be doing well from a GI standpoint. Given her history of tubular adenomas of the colon and Her last colonoscopy being 6 years ago, I did recommend a followup colonoscopy for further screening purposes. We did review the rationale for this in regard to colon cancer prevention. Full consent was obtained for this, including risks of bleeding and perforation. The procedure will be done with monitored anesthesia care. She was given the below instructions regarding adjustment of her medication for the procedure. In regard to her constipation I did recommend beginning a trial of daily MiraLax and/or Metamucil fiber pills with plenty of water. I advised her to use a p.r.n. laxative every second or third day if she does become constipated. Lastly, I did advise her to check in with you before her next appointment with you in October in regard to the foot drop and having some blood work to check her blood sugars in the event she has developed some diabetic neuropathy as a cause of her foot drop. June was comfortable with this plan. Thank you again for allowing me to participate in June's care. I shall continue to keep you advised of her progress. 10/27/2024 Encounter for screening for malignant neoplasm of colon (ICD-10 - Z12.11) Stop Eliquis for 2 days before the colonoscopy Do not take Spironolactone the day before or on the day of the colonoscopy Overall, June seems to be doing well from a GI standpoint. Given her history of tubular adenomas of the colon and Her last colonoscopy being 6 years ago, I did recommend a followup colonoscopy for further screening purposes. We did review the rationale for this in regard to colon cancer prevention. Full consent was obtained for this, including risks of bleeding and perforation. The procedure will be done with monitored anesthesia care. She was given the below instructions regarding adjustment of her medication for the procedure. In regard to her constipation I did recommend beginning a trial of daily MiraLax and/or Metamucil fiber pills with plenty of water. I advised her to use a p.r.n. laxative every second or third day if she does become constipated. Lastly, I did advise her to check in with you before her next appointment with you in October in regard to the foot drop and having some blood work to check her blood sugars in the event she has developed some diabetic neuropathy as a cause of her foot drop. June was comfortable with this plan. Thank you again for allowing me to participate in June's care. I shall continue to keep you advised of her progress. 10/27/2024 Pre-procedural examination (ICD-10 - Z01.818) Overall, June seems to be doing well from a GI standpoint. Given her history of tubular adenomas of the colon and Her last colonoscopy being 6 years ago, I did recommend a followup colonoscopy for further screening purposes. We did review the rationale for this in regard to colon cancer prevention. Full consent was obtained for this, including risks of bleeding and perforation. The procedure will be done with monitored anesthesia care. She was given the below instructions regarding adjustment of her medication for the procedure. In regard to her constipation I did recommend beginning a trial of daily MiraLax and/or Metamucil fiber pills with plenty of water. I advised her to use a p.r.n. laxative every second or third day if she does become constipated. Lastly, I did advise her to check in with you before her next appointment with you in October in regard to the foot drop and having some blood work to check her blood sugars in the event she has developed some diabetic neuropathy as a cause of her foot drop. June was comfortable with this plan. Thank you again for allowing me to participate in June's care. I shall continue to keep you advised of her progress. 10/27/2024 Anticoagulant long-term use (ICD-10 - Z79.01) Overall, June seems to be doing well from a GI standpoint. Given her history of tubular adenomas of the colon and Her last colonoscopy being 6 years ago, I did recommend a followup colonoscopy for further screening purposes. We did review the rationale for this in regard to colon cancer prevention. Full consent was obtained for this, including risks of bleeding and perforation. The procedure will be done with monitored anesthesia care. She was given the below instructions regarding adjustment of her medication for the procedure. In regard to her constipation I did recommend beginning a trial of daily MiraLax and/or Metamucil fiber pills with plenty of water. I advised her to use a p.r.n. laxative every second or third day if she does become constipated. Lastly, I did advise her to check in with you before her next appointment with you in October in regard to the foot drop and having some blood work to check her blood sugars in the event she has developed some diabetic neuropathy as a cause of her foot drop. June was comfortable with this plan. Thank you again for allowing me to participate in June's care. I shall continue to keep you advised of her progress. Plan Of Treatment Treatment Notes Assessment Notes Constipation Start taking 1/2 or 1 scoop of Miralax every day to help with constipation You can take 2 Metamucil fiber pills once or twice a day with a lot of water for the constipation Use the Senokot laxative as needed after 2-3 days of constipation Encounter for screening for malignant neoplasm of colon Stop Eliquis for 2 days before the colonoscopy Do not take Spironolactone the day before or on the day of the colonoscopy Future Test Test Name Order Date COLONOSCOPY 10/27/2024 Next Appt Details Follow Up: prn, Reason: Provider Name:Good Berry , 02/12/2025 11:00:00 AM, [address] [place] [address], [phone], Progress Notes * JUNE IBARRA MDOB: 1955 (69 yo F)Acc No.[id number]:10/27/2024 Progress Notes Patient:?CECY IBARRA Provider:?Good Berry MD :1955???Age:69 Y???Sex:Female D ate:10/27/2024 Address:[address] [place], [place] [id number] Pcp:Radu Welch MD Subjective: * Chief Complaints: * ???Patient presents today fo r screening colon * HPI: ???incontinence:? I saw June in consultation today in regard to further evaluation of her constipation, personal history of tubular adenomas of the colon, and discussion of colorectal cancer screening. ?I last saw June in 2019, at which time she underwent a negative followup screening colonoscopy. She describes that she feels well from a GI standpoint but has been troubled by some constipation for which she will take an occasional laxative with some relief. She denies any hematochezia nor melena. She does have a bowel movement about every second or third day. She enjoys a good appetite and denies any significant heartburn or dysphagia. She denies abdominal pain, jaundice, or any unintentional weight loss. She denies any known family history of colon cancer. ?Labs in August revealed a normal CBC, normal chemistries and renal function, normal LFTs, and a blood sugar of 168. Last April her hemoglobin A1c was 7.1. ?She does advise me that she has been bothered by a foot drop over the past couple months for which she is seeing other physicians. * ROS:?General/Constitutional:?Change in appetite?denies.?Chills?denies.?Fatigue?denies.?Ophthalmologic:?Patient denies? Negative..?ENT:?Patient denies?Negative..?Respiratory:?Patient denies?No coughing/hemoptysis..?Cardiovascular:?Patient denies? No chest pain/orthopnea..?Gastrointestinal:?Comments?See HPI for details.?Genitourinary:?Patient denies? No dysuria/hematuria..?Musculoskeletal:?Patient denies? No specific arthralgias/myalgias..?Skin:?Patient denies?No rash/pruritus..?Neurologic:?Patient denies? No headaches/seizures..?Psychiatric:?Patient complaining of? Anxiety and/or depression.? * Medical History:? * Surgical History:?Carpal mercedes lisa on the right D&C Pituitary gland surgery [facility] * Hospitalization/Major Diagno stic Procedure:?No Hospitalization History. * Family History:?Father: dece ased.?Mother: .? The patient has no first degree relatives with colorectal cancer nor polyps, but does report a paternal uncle with colon cancer, as well as a great aunt and great uncle on her father's side that were in their 60's when they devloped colon cancer. * Social History:?Tobacco Use:?Tobacco Use/Smoking?Are you a: nonsmoker.?Drugs/Alcohol:?Alcohol Screen?Points: 1, Interpretation: Negative.?Miscellaneous:?Marital status: . 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 ???Nonsmoker; no sig. alcohol. * Medications:?TakingLisinopri l 20 MG Tablet 2 tablet Orally Once a daySimvastatin 20 MG Tablet 1 tablet in the evening Orally Once a dayPARoxetine HCl 40 MG Tablet 1 tablet in the morning Orally Once a dayclonazePAM 0.5 MG Tablet TAKE 1 TABLET BY MOUTH DAILY NEEDED FOR ANXIETY Oral Spironolactone 25 MG Tablet Oral Eliquis 5 MG Tablet TAKE 1 TABLET BY MOUTH TWICE DAILY Oral , Notes: I2510,UnavailablehydrALAZINE HCl 25 MG Tablet TAKE 1 TABLET BY MOUTH THREE TIMES DAILY Oral , Notes: I2510,UnavailableCarvedilol 12.5 MG Tablet TAKE 1 TABLET BY MOUTH TWICE DAILY Oral , Notes: I2510,UnavailableLatanoprost 0.005 % Solution INSTILL ONE DROP INTO BOTH EYES AT BEDTIME Ophthalmic Brimonidine Tartrate 0.2 % Solution INSTILL 1 DROP IN BOTH EYES TWICE DAILY Ophthalmic Vitamin D 2000 UNIT Tablet 1 tablet Orally Once a dayTaking Lisinopril 20 MG Tablet 2 tablet Orally Once a dayTaking Simvastatin 20 MG Tablet 1 tablet in the evening Orally Once a dayTaking PARoxetine HCl 40 MG Tablet 1 tablet in the morning Orally Once a dayTaking clonazePAM 0.5 MG Tablet TAKE 1 TABLET BY MOUTH DAILY NEEDED FOR ANXIETY Oral Taking Spironolactone 25 MG Tablet Oral Taking Eliquis 5 MG Tablet TAKE 1 TABLET BY MOUTH TWICE DAILY Oral , Notes: I2510,UnavailableTaking hydrALAZINE HCl 25 MG Tablet TAKE 1 TABLET BY MOUTH THREE TIMES DAILY Oral , Notes: I2510,UnavailableTaking Carvedilol 12.5 MG Tablet TAKE 1 TABLET BY MOUTH TWICE DAILY Oral , Notes: I2510,UnavailableTaking Latanoprost 0.005 % Solution INSTILL ONE DROP INTO BOTH EYES AT BEDTIME Ophthalmic Taking Brimonidine Tartrate 0.2 % Solution INSTILL 1 DROP IN BOTH EYES TWICE DAILY Ophthalmic Taking Vitamin D 2000 UNIT Tablet 1 tablet Orally Once a dayDiscontinuedAtenolol 25mg 2 tablet Orally Once a daycloNIDine HCl 0.1 MG Tablet 1 tablet Orally Twice a dayMedication List reviewed and reconciled with the patientDiscontinued Atenolol 25mg 2 tablet Orally Once a dayDiscontinued cloNIDine HCl 0.1 MG Tablet 1 tablet Orally Twice a dayMedication List reviewed and reconciled with the patient * Allergies:?NIFEdipineyes[All ergies Verified] Objective: * Vitals:?Wt: 233 lbs, Ht: 66 in, BMI:37.60 Index, BP: 00/00 mm Hg. * Examination: ???General Examination: ?GENERAL APPEARANCE:?pleasant, well nourished, well developed, in no acute distress.?EYES:?sclera non-icteric.?ORAL CAVITY:?mucosa moist.?NECK/THYROID:?no cervical lymphadenopathy, neck supple.?SKIN:?nonjaundiced, no spider angiomata..?HEART:?S1, S2 normal.?LUNGS:?clear to auscultation bilaterally.?ABDOMEN:?normal bowel sounds, no guarding or rigidity, no hepatosplenomegaly, no masses palpable, soft, nontender, nondistended..?EXTREMITIES:?no edema.?NEUROLOGIC:?alert and oriented.? Assessment: * Assessment: 1.?Constipation - K59.00 (Pr imary)?2.?History of adenomatous polyp of colon - Z86.010?3.?Encounter for screening for malignant neoplasm of colon - Z12.11?4.?Pre-procedural examination - Z01.818?5.?Anticoagulant long-term use - Z79.01? Overall, June seems to be doing well from a GI standpoint. Given her history of tubular adenomas of the colon and Her last colonoscopy being 6 years ago, I did recommend a followup colonoscopy for further screening purposes. We did review the rationale for this in regard to colon cancer prevention. Full consent was obtained for this, including risks of bleeding and perforation. The procedure will be done with monitored anesthesia care. She was given the below instructions regarding adjustment of her medication for the procedure. In regard to her constipation I did recommend beginning a trial of daily MiraLax and/or Metamucil fiber pills with plenty of water. I advised her to use a p.r.n. laxative every second or third day if she does become constipated. Lastly, I did advise her to check in with you before her next appointment with you in October in regard to the foot drop and having some blood work to check her blood sugars in the event she has developed some diabetic neuropathy as a cause of her foot drop. June was comfortable with this plan. Thank you again for allowing me to participate in June's care. I shall continue to keep you advised of her progress. Plan: * Treatment: 2.?History of adenomatous po lyp of colon?Procedure: COLONOSCOPY (Ordered for 10/27/2024) 3.?Encounter for screening for malignant neoplasm of colon?Procedure: COLONOSCOPY (Ordered for 10/27/2024)* with MACsched for 02/12/25 at 11:00 ammiralax Notes: Stop Eliquis for 2 days before the colonoscopy Do not take Spironolactone the day before or on the day of the colonoscopy?? * Procedure Codes:?3017F COLOR ECTAL CA SCREEN DOC [id number] TOBACCO [id number] BP SCR NOT PRFRM REC REASON NOS * Preventive Medicine:? ??Urinary Incontinence:?Urinary Incontinence?Assessment:?Absent,?Plan of care documented:?No, reason not specified.? ??Screenings:?Fall Risk Screening?Fall Risk Assessment:?One fall with injury in the past year uses cane ,?Screening:?One fall with injury in the past year,?Assessment:?Not performed, no reason specified,?Plan of Care:?Not documented, no reason specified.? * Follow Up:?prn * * Sign off status: Completed true * Provider:?Good Berry MD Date:? 025 Generated for Kun pelayo/Isaiah/Ambaritting on:?12/02/2024 11:44 AM EST History and Physical Notes * HPI (History of Present Illness) Category Sub-Category Detail Notes Category Not es incontinence I saw June in consultation today in regard to further evaluation of her constipation, personal history of tubular adenomas of the colon, and discussion of colorectal cancer screening. I last saw June in 2018, at which time she underwent a negative followup screening colonoscopy. She describes that she feels well from a GI standpoint but has been troubled by some constipation for which she will take an occasional laxative with some relief. She denies any hematochezia nor melena. She does have a bowel movement about every second or third day. She enjoys a good appetite and denies any significant heartburn or dysphagia. She denies abdominal pain, jaundice, or any unintentional weight loss. She denies any known family history of colon cancer. Labs in August revealed a normal CBC, normal chemistries and renal function, normal LFTs, and a blood sugar of 168. Last April her hemoglobin A1c was 7.1. She does advise me that she has been bothered by a foot drop over the past couple months for which she is seeing other physicians. Examination Category Sub-Category Detail Notes Category Not es General Examination GENERAL APPEARANCE: pleasant , well nourished, well developed, in no acute distress EYES: sclera non-icteric NECK/THYROID: no cervical lymphade nopathy, neck supple HEART: S1, S2 normal LUNGS: clear to auscultatio n bilaterally ABDOMEN: normal bowel sounds, no guarding or rigidity, no hepatosplenomegaly, no masses palpable, soft, nontender, nondistended. NEUROLOGIC: alert and oriented SKIN: nonjaundiced, no spi sobeida angiomata. EXTREMITIES: no edema ORAL CAVITY: mucosa moist
--- OUTSIDE RECORDS SUMMARY | 2024-12-02 11:45 | XMS_ITS | Patient Health Record ---
Author Organization [facility] Address [address] [place] [address] Care Team Providers Care Director Of Estate Name Role Phone Radu Welch MD Primary Care Provider Unavaila Good Will Unavailable [phone] Allergies Allergen (clinical drug ingredient) Drug/Non Drug Allergy documented on EMR Reaction Allergy Type Onset Date Status nifedipine NIFEdipine Unknown Drug Allergy Activ e Reason For Referral No Information Medications Medication SIG (Take, Route, Frequency, Duration) Notes Start Date End Date Status Spironolactone 25 MG Oral for 90 Active Eliquis 5 MG TAKE 1 TABLET BY MOUTH TWICE DAILY Oral for 90 I2510,Unavaila ble Active PARoxetine HCl 40 MG 1 tablet in the morning Orally Once a day Active clonazePAM 0.5 MG TAKE 1 TABLET BY MOUTH DAILY NEEDED FOR ANXIETY Oral for 30 Active Latanoprost 0.005 % INSTILL ONE DROP INTO BOTH EYES AT BEDTIME Ophthalmic for 75 Active hydrALAZINE HCl 25 MG TAKE 1 TABLET BY MOUTH THREE TIMES DAILY Oral for 90 I2510,Unavaila ble Active Carvedilol 12.5 MG TAKE 1 TABLET BY MOUTH TWICE DAILY Oral for 90 I2510,Unavaila ble Active Lisinopril 20 MG 2 tablet Orally Once a day Active Simvastatin 20 MG 1 tablet in the evening Orally Once a day Active Brimonidine Tartrate 0.2 % INSTILL 1 DROP IN BOTH EYES TWICE DAILY Ophthalmic for 25 Active Vitamin D 2000 UNIT 1 tablet Orally Once a day Active Immunizations Vaccine Route Administration Date Status Comme nts Influenza Unknown 08/08/2018 Refused Problems Problem Type SNOMED Code ICD Code Onset Dates Problem Status W/U Status Risk Notes Problem 747300142 Encounter for screening for malignant neoplasm of colon (Z12.11) Active confirmed Problem 378644497 History of adenomatous polyp of colon (Z86.010) Active confirmed Problem 174720449 Bloating (R14.0) Active confirmed Problem Constipation (51240691) Constipation (K59.00) Active confirmed Problem 703797934 Flatulence (R14.3) Active confirmed Problem Long-term current use of anticoagulant (081651678) Anticoagulant long-term use (Z79.01) Active confirmed Problem [id number] Pre-procedural examination (Z01.818) Active confirmed Vital Signs Blood pressure diastolic 00 mm Hg 10/27/2024 Height 66 in 10/27/2024 Blood pressure systolic 00 mm Hg 10/27/2024 Weight 233 lbs 10/27/2024 BMI 37.60 kg/m2 10/27/2024 Encounters Encounter Location Date Provider Diagnosis [facility] [address] [place] [address] 10/27/2024 Good Berry History of adenomato us [...] advised of her progress. Plan Of Treatment Pending Test Test Name Order Date CELIAC PANEL #10 10/14/2012 ENDOMYSIAL IGA 10/14/2012 TRANSGLUTAMINASE AB IGA 10/14/2012 TRANSGLUTAMINASE AB IGG 10/14/2012 Future Test Test Name Order Date UPPER GI ENDOSCOPY 10/14/2012 COLONOSCOPY 10/14/2012 COLONOSCOPY 08/08/2018 COLONOSCOPY 10/27/2024 Next Appt Details Provider Name:Good Berry , 02/12/2025 11:00:00 AM, [address] [place] [address] , [place], [place], [phone], Insurance Providers Payer Name Payer Address Payer Phone Subscriber Number Group Number Insured Name Patient Relationship to Insured Coverage Start Date Coverage End Date MEDICARE OF [place] [address] [place] [address] [id number] JUNE IBARRA Self - patient is the insured [facility] [address] [place], [place] [id number] [phone] [id number] JUNE IBARRA Self - patient is the insured [employer] [address] [place] [address] [phone] [id number] JUNE IBARRA Self - patient is the insured Medical (General) History Medical History History ICD Code Colonoscopy 03-17-2007 and in 11/2012 with the removal of a tubular adenoma Denies MT,CVA,Lung disease,renal disease HTN Hyperlipidemia GERD--normal upper endoscopy in 11/2012 IBS---normal duodenal and gastric biopsi es--no H.pylori--EGD in 11/2012 Anxiety/Depression Uterine fibroid Sleep apnea-uses a CPAP machine Glaucoma Diet-controlled diabetes Drop foot 07/2024 Afib-Dr. Morel Negative colonoscopy in 09/2018 Depression Surgical History Surgery Date(Month/Year) Carpal tunnel on the right D&C Pituitary gland surgery [facility]
== END 2024-12-02 10:35 | disposition home or self-care (01) ==
PROVIDERS: PCP Internal Medicine; Visit Provider Internal Medicine Nephrology
DX: I10 Essential (primary) hypertension (principal)
CPT/HCPCS: 99214

== ENCOUNTER → 2024-12-02 09:58 | Outpatient (BNVA) | payer MEDICARE, BC, OTHER, SELFPAY | PROVIDERS: PCP Internal Medicine; Visit Provider Internal Medicine Nephrology | DX: I10 Essential (primary) hypertension (principal); M21.371 Foot drop, right foot | CPT/HCPCS: 99212 ==

== ENCOUNTER 2024-12-11 13:54 | Outpatient (AMB) | payer MEDICARE, BC, OTHER, SELFPAY ==
--- NOTE | 2024-12-11 14:05 | AM.OFFWIN_ITS ---
Intake Vital Signs 12/11/24 14:09 Height 5 ft 6 in Weight 233 lb BMI 37.6 BP 122/80 Blood Pressure Location Rt brachial Position Sitting Pulse 76 Pulse Source Pulse Oximeter Pulse Oximetry (%) 97 Oxygen Delivery Method Room Air Intake Visit Reasons: EP Drop foot? Rt side, two red toes Intake Note: Patient here for right foot drop and redness that has been present for almost 2 weeks. Patient Tobacco Use Status: Former Tobacco user Allergies nifedipine [NIFEDIPINE] Allergy (Unknown, Verified 12/11/24 14:10) UNKNOWN- DOES NOT REMEMBER Pt states no known allergy to Allergy (Unknown, Uncoded 12/11/24 14:10) n/a Do you need a note to return to daycare/school/sports/work: No HPI HPI Comments History of Present Illness Details This is a 69-year-old female who presented to the walk-in clinic complaining of mild erythema of 2 of her right toes. Patient states she is currently being treated for right-sided drop foot with an AFO brace and she is scheduled to follow-up with neurosurgery in a few weeks. She started to notice some mild erythema of her right 2nd and 3rd toes about 2 weeks ago. She denies any trauma or injury to those toes. She denies any pain of those toes. She denies any fevers or chills. She also noticed a ?black spot? on her big toe this morning. She states she follows with a mechanical research engineer for ingrown toenails. 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 Low back pain, unspecified Pain in left shoulder Intercostal pain Major depressive disorder, recurrent, unspecified Acute cough Unilateral primary osteoarthritis, left knee CELIA on CPAP Diastolic dysfunction Panic disorder Generalized anxiety disorder Dysthymia PAF (paroxysmal atrial fibrillation) New onset atrial fibrillation Prediabetes HTN (hypertension) Surgical History History of nasal surgery S/P cardiac cath History of hysterectomy Family History Mother Bladder cancer Social History (Reviewed 12/02/24 @ 10:04 by JAE Garcia Alcohol intake: never Comment: instructed to ring dc for assistance. Patient Tobacco Use Status: Former Tobacco user Advance Directives Date on File: 07/03/22 service: No Current occupational status: retired Review of Systems Const All systems reviewed & are unremarkable except as noted in HPI and below Reports no additional complaints Eyes Reports no additional complaints ENT Reports no additional complaints Card Reports no additional complaints Resp Reports no additional complaints GI Reports no additional complaints Reports no additional complaints Musc Reports no additional complaints Skin/Breast Reports system reviewed and no additional complaints, except as documented Neuro Reports no additional complaints Psych Reports no additional complaints Endo Reports no additional complaints Alexandre/Lymph Reports no additional complaints Aller/Immun Reports no additional complaints Physical Exam Vital Signs: Last Vital Signs Pulse 76 12/11/24 14:09 BP 122/80 12/11/24 14:09 Pulse Ox 97 12/11/24 14:09 Oxygen Delivery Method Room Air 12/11/24 14:09 BMI result Body Mass Index 37.6 Const Other: Vital signs reviewed. Constitutional: Non-toxic appearing. No acute distress. Well-developed and well-nourished. HEENT: Normocephalic and atraumatic. Skin: Warm and dry. No rashes or lesions noted. There is minimal erythema of the right 2nd and 3rd toes without warmth or fluctuance/induration. There is mild erythema with a small fluid collection to the lateral nail fold of the right big toe without tenderness to palpation. Neck: Full and painless range of motion. No cervical lymphadenopathy. Cardio: Regular rate. No murmurs, gallops, or rubs. No lower extremity edema. 2+ DP/PT pulses bilaterally. Pulmonary: No respiratory distress. No accessory muscle usage. Gastrointestinal: Soft, nontender, and nondistended in all 4 quadrants. Musculoskeletal: Normal range of motion in joints throughout the body. No deformity or other signs of injury. Neuro: Alert and oriented x4. Cranial nerves 2-12 grossly intact. No focal deficits appreciated. Psych: Normal mood and affect. Assessment & Plan Assessment & Plan (1) Ingrown toenail of right foot: Code(s): L60.0 - Ingrowing nail Plan: This is a 69-year-old female who presented to the walk-in clinic complaining of mild erythema to the right 2nd and 3rd toes as well as mild erythema and fluid collection around the big toe. On physical examination, she has minimal erythema of the right 2nd and 3rd toes without warmth and there is mild erythema with a very small fluid collection at the lateral nail fold of the right great toe. History and physical most consistent with ingrown toenail. There does not appear to be evidence of severe paronychia or cellulitis at this time. She has 2+ DP/PT pulses of the right foot and she denies any pain, pallor, or paresthesias. Patient was encouraged to soak the right foot in warm soapy water with Epsom salt 3 times daily times 20 minutes. She was instructed to follow- up with her mechanical research engineer as scheduled. Patient was advised to follow-up here or proceed to the emergency room if she were to develop worsening/spreading erythema, purulent drainage, lymphangitic streaking, fever/chills, or worsening/persistent symptoms. Patient verbalized understanding and is agreeable with the plan. Coding Level of Care Code Est Pt Level 3 (82679) Diagnoses Ingrown toenail of right foot L60.0
[2024-12-11 14:09] VITALS: BP 122/80; PULSE 76; O2SAT 97; BMI 37.6
--- OUTSIDE RECORDS SUMMARY | 2024-12-11 15:37 | XMS_ITS | Patient Health Record ---
Author Organization [facility] Address [address] [place] [address] Care Team Providers Care Paper Handler Name Role Phone Radu Welch MD Primary Care Provider Unavaila Good Will Unavailable [phone] Allergies Allergen (clinical drug ingredient) Drug/Non Drug [...] Problem Status W/U Status Risk Notes Problem 765533577 Encounter for screening for malignant neoplasm of colon (Z12.11) Active confirmed Problem 907287875 History of adenomatous polyp of colon (Z86.010) Active confirmed Problem 159966038 Bloating (R14.0) Active confirmed Problem Constipation (03172077) Constipation (K59.00) Active confirmed Problem 350615519 Flatulence (R14.3) Active confirmed Problem Long-term current use of anticoagulant (827519439) Anticoagulant long-term use (Z79.01) Active confirmed Problem 135916618378782 Pre-procedural examination (Z01.818) Active confirmed Vital Signs Blood pressure diastolic 00 mm Hg 10/27/2024 Height 66 in 10/27/2024 Blood pressure systolic 00 mm Hg 10/27/2024 Weight 233 lbs 10/27/2024 BMI 37.60 kg/m2 10/27/2024 Encounters Encounter Location Date Provider Diagnosis [facility] [address] [place] [address] 10/27/2024 Good Berry History of adenomato us [...] Provider Name:Good Berry , 02/12/2025 11:00:00 AM, [address] [place] [address] , [place], [place], [phone], Insurance Providers Payer Name Payer Address Payer Phone Subscriber Number Group Number Insured Name Patient Relationship to Insured Coverage Start Date Coverage End Date MEDICARE OF [place] [address] [place] [address] [id number] JUNE IBARRA Self - patient is the insured [facility] [address] [place], [place] [id number] [phone] [id number] JUNE IBARRA Self - patient is the insured [employer] [address] [place] [address] [phone] [id number] JUNE IBARRA Self - patient is the insured Medical (General) History Medical History History ICD Code Colonoscopy 03-17-2007 and in 11/2012 with the removal of a tubular adenoma Denies [place],CVA,Lung disease,renal disease HTN Hyperlipidemia GERD--normal upper endoscopy in 11/2012 IBS---normal duodenal and gastric biopsi es--no H.pylori--EGD in 11/2012 Anxiety/Depression Uterine fibroid Sleep apnea-uses a CPAP machine Glaucoma Diet-controlled diabetes Drop foot 07/2024 Afib-Dr. Morel Negative colonoscopy in 09/2018 Depression Surgical History Surgery Date(Month/Year) Carpal tunnel on the right D&C Pituitary gland surgery [facility] ESCOTO
--- OUTSIDE RECORDS SUMMARY | 2024-12-11 15:37 | XMS_ITS | Patient Health Record ---
[facility] Organization [facility] Address [address] [place] [address] Care Team Providers Care Multimedia Programmer Name Role Phone TONY GARCES M.D. Primary Care Provider Unavaila Felicia Pool Unavailable [phone] Reason For Referral No Information Medications Medication SIG (Take, Route, Fr equency, Duration) Notes Start Date End Date Status Simvastatin 20MG 1 ORAL daily for -3 [facility] 09/09/2012 Active Spironolactone 25MG 1 ORAL daily for -3 [facility] 07/08/2013 Active Terazol 7 0.4 % 1 application at bed time Vaginal Once a day for 7 day(s) 05/10/2015 Active LORazepam 0.5 MG 1 tablet as needed O rally Twice a day Active Atenolol 50MG 1 ORAL DAILY for -3 [facility] 09/09/2012 Active cloNIDine HCl 0.1MG 1 ORAL twice daily for -3 [facility] 08/30 Active Lisinopril 40MG 1 ORAL daily for -3 [facility] 09/09/2012 Active PARoxetine HCl 40MG 1 ORAL daily for -3 [facility] 09/09/2012 Active Problems Problem Type SNOMED Code ICD Code Onset Dates Problem Status W/U Status Risk Notes Problem Hyperlipidemia (92152169) Other and unspecified hyperlipidemia (272.4) Active confirmed Major Problem Depressive disorder (10075691) Depressive disorder, not elsewhere classified (311) Active confirmed Major Problem Glaucoma (15548225) Unspecified glaucoma (365.9) Active confirmed Diag Problem Benign essential hypertension (6609868) Essential hypertension, benign (401.1) Active confirmed Major Problem Female genital organ symptoms (765417331) Other specified symptom associated with female genital organs (625.8) Active confirmed Major Problem Postmenopausal bleeding (55636965) Postmenopausal bleeding (627.1) Active confirmed Diag Problem Menopausal symptom (15855690) Symptomatic menopausal or female climacteric states (627.2) Active confirmed Major Problem Left lower quadrant pain (519429081) Abdominal pain, left lower quadrant (789.04) Active confirmed Diag Problem Gynecological examination normal (516070020656742) Routine gynecological examination (V72.31) Active confirmed Problem Screening for malignant neoplasm of colon (323730715) Special screening for malignant neoplasms, colon (V76.51) Active confirmed Major Plan Of Treatment Pending Test Test Name Order Date Bone Density 10/19/2016 Urine Culture and Sensitivity 05/10/2015 Insurance Providers Payer Name Payer Address Payer Phone Subscriber Number Group Number Insured Name Patient Relationship to Insured Coverage Start Date Coverage End Date [employer] [place] [address] [place] [address] [id number] JUNE ESTEVES Self - patient is the insured [facility] [address] [place], [place] [id number] JUNE ESTEVES Self - patient is the [...] TONSILLECTOMY APPENDECTOMY PITUITARY GLAND, TUMOR EXCISION [facility] Hospitalization History Reason Date(Month/Year) CHILD SEE SURGICAL HX
--- OUTSIDE RECORDS SUMMARY | 2024-12-11 15:37 | XMS_ITS | Clinical Summary ---
Author Organization [facility] Address [address] [place] [address] Phone Care Team Providers Care High School Admissions Representative Name Role Phone Radu Welch MD Primary Care Provider [phone] Allergies No known active allergies Medications lisinopril [...] also be consided for placement of a human services manager. They can see their dentist or an [...] average glucose, using the formula of the C3T-Jasbbya Average Glucose study (ADAG), Diabetes Care, Vol.31,#8, [...] Most Recently Relevant to Health Maintenance Insurance [facility] MEDICARE [facility] MEDICARE [facility] Care Teams High School Admissions Representative Relationship Specialty Start Date End Date Radu Welch MD [address] [place] PCP - General 10/10/20
--- OUTSIDE RECORDS SUMMARY | 2024-12-11 15:37 | XMS_ITS ---
Author Organization [facility] Address [address] [place] [address] Care Team Providers Care Motel Front Desk Attendant Name Role Phone Radu Welch MD Primary Care Provider Pearl susan AleksJayashree Unavailable [phone] REASON FOR VISIT r/s Encounters Encounter Location Date Provider Diagnosis [address] [address] 11/18/2024 Jayashree Fink Plan Of Treatment Next Appt Details Provider Name:Jayashree Pressley Aleks , 01/18/2025 08:15:00 AM, [address] [place], [address], Progress Notes * Alivia WILDEOB:03/1955 (69 yo F)Acc No.[id number]:11/18/2024 Patient:?Trisha WILDE :1955???Age:69 Y???Sex:Female Address:[address] [place] [address], [place] [address] * true * Date:? Generated for Printi gita/Faaileen/eTransmitting on:?12/11/2024 03:36 PM EDT
--- OUTSIDE RECORDS SUMMARY | 2024-12-11 15:37 | XMS_ITS ---
Author Organization [facility] Address [address] [place] [address] Care Team Providers Care Supervisor Home Economics Name Role Phone Radu Welch MD Primary Care Provider Jayashree Martinez [phone] REASON FOR VISIT Seen Sooner Encounters Encounter Location Date Provider Diagnosis [address] [address] 10/12/2024 Jayashree Fink Plan Of Treatment Next Appt Details Provider Name:Jayashree Pressley Aleks , 01/18/2025 08:15:00 AM, [address] [place], [address], Progress Notes * Alivia ESTEVESOB:03/1955 (69 yo F)Acc No.[id number]:10/12/2024 Progress Note Patient:?Trisha ESTEVES Provider:?Jayashree Fink DPM :1955???Age:69 Y???Sex:Female D ate:10/12/2024 Address:[address] [place] [address], [id number] Pcp:Radu Welch MD Subjective: * Chief Complaints: [...] Fink DPM Date:?2024 Generated for Kun pelayo/Isaiah/Alok on:?12/11/2024 03:36 PM EDT
--- OUTSIDE RECORDS SUMMARY | 2024-12-11 15:37 | XMS_ITS ---
Author Organization [facility] Address [address] [place] [address] Care Team Providers Care Tipple Tender Name Role Phone Radu Welch MD Primary Care Provider Unavaila ble Good Berry Unavailable [phone] Allergies Allergen (clinical drug ingredient) Drug/Non Drug [...] Status W/U Status Risk Notes Problem Constipation (63328500) Constipation (K59.00) Active confirmed Problem Long-term current use of anticoagulant (130638124) Anticoagulant long-term use (Z79.01) Active confirmed Vital Signs Blood pressure systolic 00 mm Hg 10/27/19 25 Blood pressure diastolic 00 mm Hg 025 Height 66 in 10/27/2024 Weight 233 lbs 10/27/2024 BMI 37.60 kg/m2 10/27/2024 Encounters Encounter Location Date Provider Diagnosis [facility] [address] [place] [address] 10/27/2024 Good Berry History of adenomato us [...] Provider Name:Good Berry , 02/12/2025 11:00:00 AM, [address] [place] [address], [phone], Progress Notes * JUNE IBARRA MDOB: 1955 (69 yo F)Acc No.[id number]:10/27/2024 Progress Notes Patient:?CECY IBARRA Provider:?Good Berry MD :1955???Age:69 Y???Sex:Female D ate:10/27/2024 Address:[address] [place], [place] [id number] Pcp:Radu Welch MD Subjective: * Chief Complaints: [...] the right D&C Pituitary gland surgery [facility] * Hospitalization/Major Diagno stic Procedure:?No Hospitalization [...] Negative.?Miscellaneous:?Marital status: . 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 ???Nonsmoker; no sig. alcohol. * Medications:?TakingLisinopri l [...] Procedure Codes:?3017F COLOR ECTAL CA SCREEN DOC IAQ5092N TOBACCO NON-HQAKM1774 BP SCR NOT PRFRM REC REASON NOS [...] MD Date:? 025 Generated for Kun pelayo/Isaiah/Ambaritting on:?12/11/2024 03:37 PM EDT History and Physical Notes * HPI (History [...]
--- OUTSIDE RECORDS SUMMARY | 2024-12-11 15:37 | XMS_ITS | Patient Health Record ---
Author Organization [facility] Address [address] [place] [address] Care Team Providers Care Brand Marketing Manager Name Role Phone Radu Welch MD Primary Care Provider Unavaila susan FinkLizzye Unavailable [phone] Allergies Allergen (clinical drug ingredient) Drug/Non Drug [...] Problem Acquired hammer toe of right foot (3819952897124863 ) Other hammer toe(s) (acquired), right foot (M20.41) Active confirmed Problem Acquired hammer toe of left foot (0275062863707590 ) Other hammer toe(s) (acquired), left foot (M20.42) Active confirmed Problem Localized, primary osteoarthritis of the ankle and/or foot (876346897) Primary osteoarthritis, left ankle and foot (M19.072) Active confirmed Problem Polyneuropathy due to type 2 diabetes mellitus (746574247) Type 2 diabetes mellitus with diabetic polyneuropathy (E11.42) Active confirmed Problem 311895456 Hammer toe of right foot (M20.41) Active confirmed Problem 416214516 Hammer toe of left foot (M20.42) Active confirmed Problem 491356515 Equinus contracture of left ankle (M24.572) Active confirmed Problem 375502471 Equinus contracture of right ankle (M24.571) Active confirmed Problem Diabetic foot ulcer (936629676) Skin ulcer of toe of right foot, limited to breakdown of skin (L97.511) Active confirmed Problem Diabetic foot ulcer (557918239) Skin ulcer of toe of right foot with fat layer exposed (L97.512) Active confirmed Problem Diabetic foot (003407227) Skin ulcer of toe of left foot with fat layer exposed (L97.522) Active confirmed Problem 30766936 Essential hypertension (I10) Active confirmed Vital Signs Blood pressure diastolic 70 mm Hg 09/14/2024 Height 5ft6in in 09/14/2024 Blood pressure systolic 120 mm Hg 09/14/2024 Weight 239 lbs 09/14/2024 BMI 38.57 kg/m2 09/14/2024 Procedures Procedure Date Ordered Date Performed Result Body Sit e 27407-Lahm Destruction, 1-14 12/23/2023 N/A 63704- Debride <25 sq cm 12/23/2023 N/A 39807-DONP SKIN LESIONS, 2 TO 4 12/23/2023 N/A P7583-URECBYHQ DYSTROPHIC NAILS ANY # 12/23/2023 N/A 15898-Nmlb Destruction, 1-14 03/16/2024 N/A 53759-Pkhxbxnk Plate 03/16/2024 N/A 68234-IQMZ SKIN LESIONS, 2 TO 4 03/16/2024 N/A K4881-BGVPARHP DYSTROPHIC NAILS ANY # 03/16/2024 N/A 72798-Nkvb Destruction, 1-14 06/22/2024 N/A 25197-TXEU SKIN LESIONS, 2 TO 4 06/22/2024 N/A K9485-PZODOLVI DYSTROPHIC NAILS ANY # 06/22/2024 N/A 97896-Bhnt Destruction, 1-14 09/14/2024 N/A 54831-YCNA SKIN LESIONS, 2 TO 4 09/14/2024 N/A Y6168-KYLEZSDW DYSTROPHIC NAILS ANY # 09/14/2024 N/A Encounters Encounter Location Date Provider Diagnosis [address] [address] 12/23/2023 Jayashreelei Fink Other viral warts B07.8 ; Pain in left foot M79.672 ; Type 2 diabetes mellitus with diabetic polyneuropathy E11.42 and Skin ulcer of toe of right foot, limited to breakdown of skin L97.[address] [address] 03/16/2024 Jayashreelibertad Fink Other viral warts B07.8 ; Pain in left foot M79.672 ; Type 2 diabetes mellitus with diabetic polyneuropathy E11.42 ; Other hammer toe(s) (acquired), left foot M20.42 ; Other hammer toe(s) (acquired), right foot M20.41 and Ingrown nail L60.[address] [address] 06/22/2024 Jayashreelibertad Fink Other viral warts B07.8 ; Other hammer toe(s) (acquired), right foot M20.41 ; Pain in left foot M79.672 ; Type 2 diabetes mellitus with diabetic polyneuropathy E11.42 ; Other hammer toe(s) (acquired), left foot M20.42 and Ingrown nail L60.[address] [address] 09/14/2024 Jayashreelibertad Fink Other viral warts B07.8 ; Right foot drop M21.371 ; Pain in left foot M79.672 ; Type 2 diabetes mellitus with diabetic polyneuropathy E11.42 ; Injury of right peroneal nerve, initial encounter S84.11XA and Neuritis M79.2 [facility] [address] [address] 01/24/2024 Jayashree Fink [facility] [address] [address] 09/14/2024 Jayashree Fink [facility] [address] [address] 11/18/2024 Jayashree Fikn [facility] [address] [address] 12/11/2024 Jayashree Fink Assessments Encounter Date Diagnosis (ICD Code) Assessment Notes Treatment Notes Treatment Clinical Notes Section Notes 12/23/2023 Other viral warts (ICD-10 - B07.8) 12/23/2023 Pain in left foot (ICD-10 - M79.672) 03/16/2024 Other viral warts (ICD-10 - B07.8) [...] Pain in left foot (ICD-10 - M79.672) 12/23/2023 Type 2 diabetes mellitus with diabetic [...] - L60.0) 09/14/2024 Neuritis (ICD-10 - M79.2) 12/23/2023 Other 03/16/2024 Other 09/14/2024 Other Plan Of Treatment Pending Test Test Name Order Date 69796-Zzuu Destruction, 1-14 07/20/2019 41417-Qlwd Destruction, -14 01/18/2020 49940-Hqdq Destruction, -14 04/18/2020 89181-Wwcn Destruction, -14 07/07/2020 80419-Slpw Destruction, -14 10/13/2020 67535-Jkln Destruction, -14 01/12/2021 11874-Hifl Destruction, -14 05/15/2021 84511-Esus Destruction, 1-14 08/31/2021 09824-Lrfr Destruction, 1-14 11/28/2021 43352-Tqci Destruction, 1-14 03/29/2022 07894-Jptr Destruction, 1-14 07/02/2022 49420-Stdw Destruction, 1-14 10/11/2022 42958-Hses Destruction, -14 04/25/2023 76921-Iddg Destruction, 1-14 08/05/2023 22443-Rtxi Destruction, 1-14 01/17/2023 12814-Aido Destruction, 1-14 12/23/2023 44673-Eanh Destruction, 1-14 03/16/2024 80593-Tgnt Destruction, 1-14 06/22/2024 31048-Hefk Destruction, 1-14 09/14/2024 34086-Stxufsmm Plate 03/16/2024 26252-Rbjupldf Plate 08/05/2023 64526-Llqcicom Plate 01/17/2023 42449-Apjyvftl Plate 03/29/2022 01025-Oexvhlsz Plate 11/28/2021 27138-Rnkjlhzh Plate 08/31/2021 71113-Cghnogvs Plate 05/15/2021 85406-Zgxzwxew Plate 01/12/2021 60894-Ruyidgsz Plate 04/18/2020 75566-Jgretqdq Plate Each Additional 09807-HVH 11/21/2023 66205- Debride <25 sq cm 12/23/2023 73895-KHJOLRJ SKIN/TISSUE 12/05/2023 09519-JAUW SKIN LESIONS, 2 TO 4 12/05/19 49204-GRFB SKIN LESIONS, 2 TO 4 08/05/20 74902-ADCU SKIN LESIONS, 2 TO 4 01/18/20 96918-RIVX SKIN LESIONS, 2 TO 4 10/11/19 06735-QRVW SKIN LESIONS, 2 TO 4 07/02/20 24028-KQXT SKIN LESIONS, 2 TO 4 12/23/19 91387-RWNT SKIN LESIONS, 2 TO 4 04/25/20 57580-CEJY SKIN LESIONS, 2 TO 4 03/16/20 71867-JIVF SKIN LESIONS, 2 TO 4 09/14/20 32665-GWDF SKIN LESIONS, 2 TO 4 06/22/20 85072-ZPMJ SKIN LESIONS, 2 TO 4 04/18/20 02052-AFOC SKIN LESIONS, 2 TO 4 01/18/20 01934-HGSW SKIN LESIONS, 2 TO 4 07/20/20 13905-SAVK SKIN LESIONS, 2 TO 4 07/07/20 94084-OKFP SKIN LESIONS, 2 TO 4 10/13/19 72655-ANUM SKIN LESIONS, 2 TO 4 01/13/20 35485-VMKV SKIN LESIONS, 2 TO 4 05/15/20 32783-JOCJ SKIN LESIONS, 2 TO 4 08/31/20 36438-BEOY SKIN LESIONS, 2 TO 4 03/01/20 22 05213-LSEQ SKIN LESIONS, 2 TO 4 03/29/20 V8949-OYPGHHXM DYSTROPHIC NAILS ANY # R1291-PSDBDMSO DYSTROPHIC NAILS ANY # N0437-NPRIGOBV DYSTROPHIC NAILS ANY # D5841-VJJPYAIO DYSTROPHIC NAILS ANY # X9999-WGVEBCJA DYSTROPHIC NAILS ANY # F0459-CCMAWNGE DYSTROPHIC NAILS ANY # R0071-TCRXPTYW DYSTROPHIC NAILS ANY # S5734-AKNVOJRZ DYSTROPHIC NAILS ANY # G6139-TCJBKBPI DYSTROPHIC NAILS ANY # Y2877-GWURNHBT DYSTROPHIC NAILS ANY # N1430-VWFAGRIK DYSTROPHIC NAILS ANY # A5318-PUIGCJSY DYSTROPHIC NAILS ANY # P3142-DWHLBRAS DYSTROPHIC NAILS ANY # Z0433-OZJUWAVB DYSTROPHIC NAILS ANY # T8442-NOGJFGXO DYSTROPHIC NAILS ANY # N3452-YWTVNHLA DYSTROPHIC NAILS ANY # C2012-OPWSRAGB DYSTROPHIC NAILS ANY # B9127-SFZRDNPE DYSTROPHIC NAILS ANY # Q1749-CAGMNNYU DYSTROPHIC NAILS ANY # T1730-EMNMXFSS DYSTROPHIC NAILS ANY # Next Appt Details Provider Name:Jayashree Fink , 01/18/2025 08:15:00 AM, [address] [facility], [place], [address], Insurance Providers Payer Name Payer Address Payer Phone Subscriber Number Group Number Insured Name Patient Relationship to Insured Coverage Start Date Coverage End Date Medicare National [facility] [address] [place] [phone] [id number] Josefina Wilde Self - patient is the insured [facility] [address] [place] [address] [id number] Josefina Wilde Self - patient is the insured [employer] [address] [place] [address] [id number] MAINE WILDE Spouse - patient is the spouse of the insured Medical (General) History Medical History History ICD Code hypertension depression Arthritis Anxiety disorder Glaucoma Neuropathy Chicken pox Back,Hip,and Knee pain Carpal tunnel NIDDM type II diabetes Surgical History Surgery Date(Month/Year) hysterectomy 10/30/13 carpal tunnel surgery tumor removal appendectomy Pituitary sinus surgery 06/25/22 Hospitalization History Reason Date(Month/[place] [facility] [place] [facility] days sinus surgery complication uncontrollable nose bleed [place] [facility] [place]
--- OUTSIDE RECORDS SUMMARY | 2024-12-11 15:37 | XMS_ITS ---
Author Organization [facility] Address [address] [place] [address] Care Team Providers Care Advertising Statistical Clerk Name Role Phone Radu Welch MD Primary Care Provider Pearl Jayashree Duek Unavailable [phone] REASON FOR VISIT diab patient Encounters Encounter Location Date Provider Diagnosis [address] [address] 12/11/2024 Jayashree Fink Plan Of Treatment Next Appt Details Provider Name:Jayashree Fink , 01/18/2025 08:15:00 AM, [address] [place], [address], Progress Notes * Alivia WILDEOB:03/1955 (69 yo F)Acc No.[id number]:12/11/2024 Patient:?Trisha WILDE :1955???Age:69 Y???Sex:Female Address:[address] [place] [address], [place] [address] * true * Date:? Generated for Printi gita/Isaiah/eTransmitting on:?12/11/2024 03:37 PM EDT
== END 2024-12-11 14:46 | disposition home or self-care (01) ==
PROVIDERS: PCP Internal Medicine; Visit Provider Physician Assistant Medical
DX: L60.0 Ingrowing nail (principal)

== ENCOUNTER → 2024-12-11 13:54 | Outpatient (BNVA) | payer MEDICARE, BC, OTHER, SELFPAY | PROVIDERS: PCP Internal Medicine; Visit Provider Physician Assistant Medical | DX: L60.0 Ingrowing nail (principal) | CPT/HCPCS: 99212 ==

== ENCOUNTER 2024-12-18 09:49 | Outpatient (AMB) | payer MEDICARE, BC, OTHER, SELFPAY ==
[2024-12-18 09:57] VITALS: BP 130/78; PULSE 80; TEMP 36.4; O2SAT 96; BMI 37.9
--- NOTE | 2024-12-18 09:57 | MHC.PC.OV ---
Vital Signs 12/18/24 09:57 Height 5 ft 6 in Weight 235 lb BMI 37.9 BP 130/78 Blood Pressure Location Lt brachial Position Sitting Pulse 80 Pulse Source Pulse Oximeter Temp 97.5 F Temp Source Temporal Artery Scan Pulse Oximetry (%) 96 Oxygen Delivery Method Room Air Intake Visit Reasons: Routine Shuttle Threader Required: No Accompanied by: Self / Same As Patient Allergies nifedipine [NIFEDIPINE] Allergy (Unknown, Verified 12/18/24 09:57) UNKNOWN- DOES NOT REMEMBER Pt states no known allergy to Allergy (Unknown, Uncoded 12/18/24 09:57) n/a Tobacco use date assessed: 12/18/24 Fall risk assessment: 1 Fall in past year Last assessed Fall Risk: 12/18/24 Dental Screening Dental Screen Date: 12/18/24 Did you have a dental visit in the last 12 months?: Yes Did you have a dental problem in the last 6 months where you did not have access to dental care?: No HPI HPI Comments History of Present Illness Details Patient is a pleasant 69 years old female with history of anxiety and depression, panic disorder, DM, low back pain, Afib (on Eliquis), h/o COVID in 2021 with chest pain leading to cardiac catheterization, CELIA on CPAP, OA, right foot drop presenting to establish care Recently developed right foot drop. She was having right hip pain, low back pain, pelvic pain right leg pain. She received right hip injection for moderate OA. Follows ortho, saw Dr Riggins. MRI lumbar spine with significant DDD. Per patient Dr Riggins does not think MRI explains the foot drop. She is starting to have increased pain now in the left leg, especially knee. She reports history of pituitary gland surgery 27 years CV: On carvedilol, aldactone, lisinopril, simvastatin, hydralazine, eliquis. Denies chest pain, shortness of breath BH: stable. Colonoscopy 10/22/2018-f/up 5 years. ROS see HPI PHYSICAL EXAM: GENERAL: Alert and oriented x 3. NAD EYES: EOMI. Anicteric. HENT: Moist mucous membranes. No scleral icterus. No cervical lymphadenopathy. LUNGS: Clear to auscultation bilaterally. CARDIOVASCULAR: Regular rate and rhythm. No murmur. No JVD. ABDOMEN: Soft, non-tender +bs EXTREMITIES: No edema. Non-tender. SKIN: No rashes or lesions. Warm. NEUROLOGIC: Right AFO. CN II-XII grossly intact PSYCHIATRIC: Cooperative. 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 Patient Tobacco Use Status: Former Tobacco user Advance Directives Date on File: 07/03/22 service: No Current occupational status: retired Cognitive needs: Yes (cane) Hearing needs: Yes (b/l hearing aids) Vision needs: Yes (rx glasses) Questionnaire PHQ-9 Over the last 2 weeks, how often have you been bothered by any of the following problems? 1. Little interest or pleasure in doing things: not at all 2. Feeling down, depressed, or hopeless: not at all 3. Trouble falling or staying asleep, or sleeping too much: not at all 4. Feeling tired or having little energy: nearly every day 5. Poor appetite or overeating: not at all 6. Feeling bad about yourself - or that you are a failure or have let yourself or your family down: not at all 7. Trouble concentrating on things, such as reading the newspaper or watching television: not at all 8. Moving or speaking so slowly that other people could have noticed. Or the opposite - being so fidgety or restless that you have been moving around a lot more than usual: not at all 9. Thoughts that you would be better off or of hurting yourself in some way: not at all Total score: 3 Depression Screening Interpretation: Negative Depression Screening Done: Yes 07090 - PHQ-9 Billing: Yes Source: Developed by Drs. Good Brennan, Mimi Sher, Bay Zepeda and colleagues, with an educational ann marie from [employer]. Thrive Questionnaire Date Thrive assessed: 12/18/24 I am a: Patient What is your living situation today?: I have a steady place to live Within the past 12 months, did the food you bought not last and you didn't have the money to get more?: Never true Within the past 12 months, did you worry whether your food would run out before you got money to buy more?: Never true Do you have trouble paying for medicines?: No Do you have trouble getting transportation to medical appointments?: No Do you have trouble paying your heating and electricity bill?: No Do you have trouble taking care of your child, family member or friend?: No Do you have trouble with day-to-day activities such as bathing, preparing meals, shopping, managing finances, etc.?: No Are you currently unemployed and looking for a job?: No Are you interested in more education?: No Please select the resources that you would like help with: None THRIVE Score: 0 AUDIT C Alcohol Use Questionnaire (AUDIT-C) 1. How often do you have a drink containing alcohol?: Monthly or less 2. How many drinks containing alcohol do you have on a typical day when you are drinking?: 1 or 2 3. How often do you have six or more drinks on one occasion?: Never Total Score: 1 JUSTIN-7 AMB Questionnaire JUSTIN-7 Date JUSTIN - 7 assessed: 12/18/24 Feeling nervous, anxious, or on edge: 1 = Several days Not being able to stop or control worryin = Several days Worrying too much about different things: 1 = Several days Trouble relaxin = Not at all Being so restless that it is hard to sit still: 0 = Not at all Becoming easily annoyed or irritable: 0 = Not at all Feeling afraid as if something awful might happen: 0 = Not at all Total JUSTIN-7 score (0-4 normal; 5-9 mild; 10-14 moderate; 15-21 severe): 3 Source: Developed by Drs. Good Brennan, Mimi Sher, Bay Zepeda and colleagues, with an educational ann marie from [employer]. Physical exam (Primary Care) Vital Signs: Last Vital Signs Temp 97.5 F 12/18/24 09:57 Pulse 80 12/18/24 09:57 BP 130/78 12/18/24 09:57 Pulse Ox 96 12/18/24 09:57 Oxygen Delivery Method Room Air 12/18/24 09:57 BMI result Body Mass Index 37.9 Tobacco/Smoking Status: Tobacco use Status Tobacco use date assessed 12/18/24 12/18/24 10:16 Patient Tobacco Use Status Former Tobacco user 12/18/24 10:16 PHQ-9: PHQ-9 Score PHQ-9: Total score 3 12/20/24 20:23 Depression Screening Interpretation: Negative Thrive Assessment: Date of Thrive Assessment Date Thrive assessed 12/18/24 12/18/24 10:16 Coding Level of Care Code New Pt Level 4 (37437) Complex EM visit Add On G2211 Diagnoses Right foot drop M21.371 PAF (paroxysmal atrial fibrillation) I48.0 Additional Codes PHQ-9 - 40087 - PHQ-9 Billing: Yes ([id number]) Assessment & Plan Assessment & Plan (1) Right foot drop: Code(s): M21.371 - Foot drop, right foot Category: Medical (2) PAF (paroxysmal atrial fibrillation): Code(s): I48.0 - Paroxysmal atrial fibrillation Category: Medical Plan 69 y/o to establish care past medical, surgical social & family history reviewed Patient with recent development of right foot drop, idiopathic. Needs neurology assessment. DM-controlled. Orders: Orders Hemoglobin A1c 12/18/24 E11.9 - Type 2 diabetes mellitus without complications, I10 - Essential (primary) hypertension, M54.17 - Radiculopathy, lumbosacral region Comprehensive Met. Panel 12/18/24 E11.9 - Type 2 diabetes mellitus without complications, F41.1 - Generalized anxiety disorder, I10 - Essential (primary) hypertension, M21.371 - Foot drop, right foot, M51.369 - Other intervertebral disc degeneration, lumbar region without mention of lumbar back pain or lower extremity pain, M54.17 - Radiculopathy, lumbosacral region Lyme IgG/IgM w/reflex to WB 12/18/24 E11.9 - Type 2 diabetes mellitus without complications, F41.1 - Generalized anxiety disorder, I10 - Essential (primary) hypertension, M21.371 - Foot drop, right foot, M51.369 - Other intervertebral disc degeneration, lumbar region without mention of lumbar back pain or lower extremity pain, M54.17 - Radiculopathy, lumbosacral region Complete Blood Count Auto Diff 12/18/24 E11.9 - Type 2 diabetes mellitus without complications, F41.1 - Generalized anxiety disorder, I10 - Essential (primary) hypertension, M21.371 - Foot drop, right foot, M51.369 - Other intervertebral disc degeneration, lumbar region without mention of lumbar back pain or lower extremity pain, M54.17 - Radiculopathy, lumbosacral region Referrals Neurology Referral E11.9 - Type 2 diabetes mellitus without complications, F41.1 - Generalized anxiety disorder, I10 - Essential (primary) hypertension, M21.371 - Foot drop, right foot, M51.369 - Other intervertebral disc degeneration, lumbar region without mention of lumbar back pain or lower extremity pain, M54.17 - Radiculopathy, lumbosacral region
--- OUTSIDE RECORDS SUMMARY | 2024-12-18 11:25 | XMS_ITS ---
[facility] Address [address] [place] [address] Care Team Providers Care Wage Hand Name Role Phone Radu Welch MD Primary Care Provider Unavaila ble Good Berry Unavailable [phone] Allergies Allergen (clinical drug ingredient) Drug/Non Drug [...] Status W/U Status Risk Notes Problem Constipation (68851529) Constipation (K59.00) Active confirmed Problem Long-term current use of anticoagulant (986663784) Anticoagulant long-term use (Z79.01) Active confirmed Vital Signs Blood pressure systolic 00 mm Hg 10/27/19 25 Blood pressure diastolic 00 mm Hg 025 Height 66 in 10/27/2024 Weight 233 lbs 10/27/2024 BMI 37.60 kg/m2 10/27/2024 Encounters Encounter Location Date Provider Diagnosis [facility] [address] [place] [address] 10/27/2024 Good Berry History of adenomato us [...] Provider Name:Good Berry , 02/12/2025 11:00:00 AM, [address] [place] [address], [id number], Progress Notes * JUNE IBARRA MDOB: 1955 (69 yo F)Acc No.[id number]:10/27/2024 Progress Notes Patient:?CECY IBARRA Provider:?Good Berry MD :1955???Age:69 Y???Sex:Female D ate:10/27/2024 Address:[address] [place], [place] [id number] Pcp:Radu Welch MD Subjective: * Chief Complaints: [...] the right D&C Pituitary gland surgery Appy [facility] * Hospitalization/Major Diagno stic Procedure:?No Hospitalization [...] Negative.?Miscellaneous:?Marital status: . 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 ???Nonsmoker; no sig. alcohol. * Medications:?TakingLisinopri [...] Procedure Codes:?3017F COLOR ECTAL CA SCREEN DOC [id number] TOBACCO NON-IXBCJ8653 BP SCR NOT PRFRM REC REASON NOS [...] MD Date:? 025 Generated for Kun pelayo/Isaiah/Ambaritting on:?12/18/2024 11:25 AM EDT History and Physical Notes * HPI [...]
--- OUTSIDE RECORDS SUMMARY | 2024-12-18 11:25 | XMS_ITS | Patient Health Record ---
Author Organization [facility] Address [address] [place] [address] Care Team Providers Care Rib Cutter Name Role Phone Radu Welch MD Primary Care Provider Unavaila susan FinkLizzye Unavailable [phone] Allergies Allergen (clinical drug ingredient) Drug/Non Drug [...] Problem Acquired hammer toe of right foot (0019589610717269 ) Other hammer toe(s) (acquired), right foot (M20.41) Active confirmed Problem Acquired hammer toe of left foot (4783515651134982 ) Other hammer toe(s) (acquired), left foot (M20.42) Active confirmed Problem Localized, primary osteoarthritis of the ankle and/or foot (074852845) Primary osteoarthritis, left ankle and foot (M19.072) Active confirmed Problem Polyneuropathy due to type 2 diabetes mellitus (302954741) Type 2 diabetes mellitus with diabetic polyneuropathy (E11.42) Active confirmed Problem 335381574 Hammer toe of right foot (M20.41) Active confirmed Problem 240306168 Hammer toe of left foot (M20.42) Active confirmed Problem 106289930 Equinus contracture of left ankle (M24.572) Active confirmed Problem 553412001 Equinus contracture of right ankle (M24.571) Active confirmed Problem Diabetic foot ulcer (289182048) Skin ulcer of toe of right foot, limited to breakdown of skin (L97.511) Active confirmed Problem Diabetic foot ulcer (452045614) Skin ulcer of toe of right foot with fat layer exposed (L97.512) Active confirmed Problem Diabetic foot (822453819) Skin ulcer of toe of left foot with fat layer exposed (L97.522) Active confirmed Problem 25378587 Essential hypertension (I10) Active confirmed Vital Signs Blood pressure diastolic 70 mm Hg 09/14/2024 Height 5ft6in in 09/14/2024 Blood pressure systolic 120 mm Hg 09/14/2024 Weight 239 lbs 09/14/2024 BMI 38.57 kg/m2 09/14/2024 Procedures Procedure Date Ordered Date Performed Result Body Sit e 28839-Ekbz Destruction, 1-14 12/23/2023 N/A 96173- Debride <25 sq cm 12/23/2023 N/A 50411-PJFH SKIN LESIONS, 2 TO 4 12/23/2023 N/A Y1381-UJMPMUYU DYSTROPHIC NAILS ANY # 12/23/2023 N/A 80573-Awqo Destruction, 1-14 03/16/2024 N/A 58178-Vezijqfi Plate 03/16/2024 N/A 06067-VNLT SKIN LESIONS, 2 TO 4 03/16/2024 N/A M8736-UPVUVGPM DYSTROPHIC NAILS ANY # 03/16/2024 N/A 57649-Ibga Destruction, 1-14 06/22/2024 N/A 71265-FJSS SKIN LESIONS, 2 TO 4 06/22/2024 N/A L3325-JPXSDSXD DYSTROPHIC NAILS ANY # 06/22/2024 N/A 78928-Eako Destruction, 1-14 09/14/2024 N/A 40333-XPMI SKIN LESIONS, 2 TO 4 09/14/2024 N/A H5718-RDNZZKLF DYSTROPHIC NAILS ANY # 09/14/2024 N/A Encounters Encounter Location Date Provider Diagnosis [address] [address] 12/23/2023 Jayashreelei Fink Other viral warts B07.8 ; Pain in left foot M79.672 ; Type 2 diabetes mellitus with diabetic polyneuropathy E11.42 and Skin ulcer of toe of right foot, limited to breakdown of skin L97.[address] [address] 03/16/2024 Jayashreelibertad Fink Other viral warts B07.8 ; Pain in left foot M79.672 ; Type 2 diabetes mellitus with diabetic polyneuropathy E11.42 ; Other hammer toe(s) (acquired), left foot M20.42 ; Other hammer toe(s) (acquired), right foot M20.41 and Ingrown nail L60.[address] [address] 06/22/2024 Jayashreelibertad Fink Other viral warts B07.8 ; Other hammer toe(s) (acquired), right foot M20.41 ; Pain in left foot M79.672 ; Type 2 diabetes mellitus with diabetic polyneuropathy E11.42 ; Other hammer toe(s) (acquired), left foot M20.42 and Ingrown nail L60.[address] [address] 09/14/2024 Jayashreelibertad Fink Other viral warts B07.8 ; Right foot drop M21.371 ; Pain in left foot M79.672 ; Type 2 diabetes mellitus with diabetic polyneuropathy E11.42 ; Injury of right peroneal nerve, initial encounter S84.11XA and Neuritis M79.2 [facility] [address] [address] 01/24/2024 Jayashree Fink [facility] [address] [address] 09/14/2024 Jayashree Fink [facility] [address] [address] 11/18/2024 Jayashree Fink [facility] [address] [address] 12/11/2024 Jayashree Fink Assessments Encounter Date Diagnosis [...] Treatment Pending Test Test Name Order Date 69564-Gjgb Destruction, 1-14 07/20/2019 67125-Iutw Destruction, -14 01/18/2020 67423-Yxwr Destruction, -14 04/18/2020 07661-Rxpr Destruction, -14 07/07/2020 84469-Okll Destruction, -14 10/13/2020 23546-Glwl Destruction, -14 01/12/2021 23794-Kkqz Destruction, -14 05/15/2021 12813-Mbig Destruction, 1-14 08/31/2021 84048-Cinz Destruction, 1-14 11/28/2021 94426-Tdzw Destruction, 1-14 03/29/2022 37389-Pebp Destruction, 1-14 07/02/2022 42096-Nrdd Destruction, 1-14 10/11/2022 09481-Jsrh Destruction, -14 04/25/2023 78576-Xtjd Destruction, 1-14 08/05/2023 70254-Luoe Destruction, 1-14 01/17/2023 73565-Byfs Destruction, 1-14 12/23/2023 42490-Zraz Destruction, 1-14 03/16/2024 03742-Rodp Destruction, 1-14 06/22/2024 69590-Vlgv Destruction, 1-14 09/14/2024 80571-Cooxtodu Plate 03/16/2024 03685-Jcqmqhku Plate 08/05/2023 38673-Ptattgdu Plate 01/17/2023 92801-Uyldqsja Plate 03/29/2022 86527-Vvyfzsqp Plate 11/28/2021 63485-Xpqifeoj Plate 08/31/2021 49302-Vdbbrtpx Plate 05/15/2021 67376-Zjvntklb Plate 01/12/2021 67874-Grqpmgmw Plate 04/18/2020 60599-Nollzjys Plate Each Additional 88609-JNS 11/21/2023 40131- Debride <25 sq cm 12/23/2023 18743-XBHSCDY SKIN/TISSUE 12/05/2023 19050-MSUW SKIN LESIONS, 2 TO 4 12/05/19 77705-SIKU SKIN LESIONS, 2 TO 4 08/05/20 05275-TFHQ SKIN LESIONS, 2 TO 4 01/18/20 28312-INDI SKIN LESIONS, 2 TO 4 10/11/19 21183-IJPO SKIN LESIONS, 2 TO 4 07/02/20 29443-EOZV SKIN LESIONS, 2 TO 4 12/23/19 97664-PNXS SKIN LESIONS, 2 TO 4 04/25/20 78127-XAMH SKIN LESIONS, 2 TO 4 03/16/20 05458-PWBY SKIN LESIONS, 2 TO 4 09/14/20 86743-LVQB SKIN LESIONS, 2 TO 4 06/22/20 46728-ZZJY SKIN LESIONS, 2 TO 4 04/18/20 08492-ASRM SKIN LESIONS, 2 TO 4 01/18/20 99957-SCMJ SKIN LESIONS, 2 TO 4 07/20/20 05636-GAJC SKIN LESIONS, 2 TO 4 07/07/20 41365-CPNR SKIN LESIONS, 2 TO 4 10/13/19 01796-QNJW SKIN LESIONS, 2 TO 4 01/13/20 97352-IDMJ SKIN LESIONS, 2 TO 4 05/15/20 55353-GFRK SKIN LESIONS, 2 TO 4 08/31/20 10305-GJLK SKIN LESIONS, 2 TO 4 03/01/20 22 00852-IUFG SKIN LESIONS, 2 TO 4 03/29/20 F2822-UOGOFQHX DYSTROPHIC NAILS ANY # M6598-JVIPMTNY DYSTROPHIC NAILS ANY # U0554-ZLUMLHMY DYSTROPHIC NAILS ANY # R8487-MVNMMQXD DYSTROPHIC NAILS ANY # S6647-HUEYAYWQ DYSTROPHIC NAILS ANY # O5088-YRAWDDIR DYSTROPHIC NAILS ANY # R1687-BPHSELJC DYSTROPHIC NAILS ANY # U7119-BFCRFHQI DYSTROPHIC NAILS ANY # V4296-CTCWRCYO DYSTROPHIC NAILS ANY # L6748-OBOHIBZY DYSTROPHIC NAILS ANY # M3821-HDEJNMJY DYSTROPHIC NAILS ANY # R5272-VVGGJDEC DYSTROPHIC NAILS ANY # R0452-SUJZAXTA DYSTROPHIC NAILS ANY # S2762-JAWVNFNF DYSTROPHIC NAILS ANY # F5577-VUQHPQWD DYSTROPHIC NAILS ANY # T4497-XKAWTBEY DYSTROPHIC NAILS ANY # Z4624-QVLREAWW DYSTROPHIC NAILS ANY # I6166-EBKRWUDG DYSTROPHIC NAILS ANY # K8776-BXHLHECO DYSTROPHIC NAILS ANY # U5610-QGIQFTPW DYSTROPHIC NAILS ANY # Next Appt Details Provider Name:Jayashree Fink , 01/18/2025 08:15:00 AM, [address] [facility] [address], [place], [address], Insurance Providers Payer Name Payer Address Payer Phone Subscriber Number Group Number Insured Name Patient Relationship to Insured Coverage Start Date Coverage End Date Medicare [facility] [address] [place] [phone] [id number] Josefina Wilde Self - patient is the insured [facility] [address] [place] [address] [id number] Josefina Wilde Self - patient is the insured [employer] [address] [place] [address] [id number] MAINE WILDE Spouse - patient is the spouse of the insured Medical (General) History Medical History History ICD Code hypertension depression Arthritis Anxiety disorder Glaucoma Neuropathy Chicken pox Back,Hip,and Knee pain Carpal tunnel NIDDM type II diabetes Surgical History Surgery Date(Month/Year) hysterectomy 10/30/13 carpal tunnel surgery tumor removal appendectomy Pituitary sinus surgery 06/25/22 Hospitalization History Reason Date(Month/Year) [place] [facility] [place] [facility] days sinus surgery complication uncontrollable nose bleed 2021 [facility] [place]
--- OUTSIDE RECORDS SUMMARY | 2024-12-18 11:25 | XMS_ITS | Patient Health Record ---
Author Organization [facility] Address [address] [place] [address] Care Team Providers Care Fast Food Shift Lead Name Role Phone Radu Welch MD Primary Care Provider Unavaila Good Will Unavailable [phone] Allergies Allergen (clinical drug ingredient) Drug/Non Drug [...] Problem Status W/U Status Risk Notes Problem 143543778 Encounter for screening for malignant neoplasm of colon (Z12.11) Active confirmed Problem 554836888 History of adenomatous polyp of colon (Z86.010) Active confirmed Problem 576899834 Bloating (R14.0) Active confirmed Problem Constipation (61915097) Constipation (K59.00) Active confirmed Problem 437957259 Flatulence (R14.3) Active confirmed Problem Long-term current use of anticoagulant (216773130) Anticoagulant long-term use (Z79.01) Active confirmed Problem 423563967834749 Pre-procedural examination (Z01.818) Active confirmed Vital Signs Blood pressure diastolic 00 mm Hg 10/27/2024 Height 66 in 10/27/2024 Blood pressure systolic 00 mm Hg 10/27/2024 Weight 233 lbs 10/27/2024 BMI 37.60 kg/m2 10/27/2024 Encounters Encounter Location Date Provider Diagnosis [facility] [address] [place] [address] 10/27/2024 Good Berry History of adenomato us [...] Provider Name:Good Berry , 02/12/2025 11:00:00 AM, [address] [place] [address] , [place], [place], [phone], Insurance Providers Payer Name Payer Address Payer Phone Subscriber Number Group Number Insured Name Patient Relationship to Insured Coverage Start Date Coverage End Date MEDICARE OF [place] [address] [place] [address] [phone] [id number] JUNE IBARRA Self - patient is the insured [facility] [address] [place], [place] [phone] [id number] JUNE IBARRA Self - patient is the insured [employer] [address] [place] [address] [phone] [id number] JUNE IBARRA Self - patient is the insured Medical (General) History Medical History History ICD Code Colonoscopy 03-17-2007 and in 11/2012 with the removal of a tubular adenoma Denies ND,CVA,Lung disease,renal disease HTN Hyperlipidemia GERD--normal upper endoscopy in 11/2012 IBS---normal duodenal and gastric biopsi es--no H.pylori--EGD in 11/2012 Anxiety/Depression Uterine fibroid Sleep apnea-uses a CPAP machine Glaucoma Diet-controlled diabetes Drop foot 07/2024 Afib-Dr. Morel Negative colonoscopy in 09/2018 Depression Surgical History Surgery Date(Month/Year) Carpal tunnel on the right D&C Pituitary gland surgery [employer] ESCOTO
--- OUTSIDE RECORDS SUMMARY | 2024-12-18 11:25 | XMS_ITS ---
Author Organization [facility] Address [address] [place] [address] Care Team Providers Care Insulation Board Coater Operator Name Role Phone Radu Welch MD Primary Care Provider Pearl Jayashree Duke Unavailable [phone] REASON FOR VISIT diab patient Encounters Encounter Location Date Provider Diagnosis [address] [address] 12/11/2024 Jayashreelibertad Fink Plan Of Treatment Next Appt Details Provider Name:Jayashree Fink , 01/18/2025 08:15:00 AM, [address] [place], [address], Progress Notes * Alivia WILDEOB:03/1955 (69 yo F)Acc No.[id number]:12/11/2024 Patient:?Trisha WILDE :1955???Age:69 Y???Sex:Female Address:[address] [place] [address], [place] [address] * true * Date:? Generated for Sandrinei gita/Isaiah/eTransmitting on:?12/18/2024 11:25 AM EDT
--- OUTSIDE RECORDS SUMMARY | 2024-12-18 11:25 | XMS_ITS | Patient Health Record ---
Author Organization [facility] Address [address] [place] [address] Care Team Providers Care Matrix Worker Name Role Phone TONY GARCES M.D. Primary Care Provider Unavaila Felicia Pool Unavailable [phone] Reason For Referral No Information Medications Medication SIG (Take, Route, Fr equency, Duration) Notes Start Date End Date Status Simvastatin 20MG 1 ORAL daily for -3 [facility] 09/09/2012 Active Spironolactone 25MG 1 ORAL daily for -3 [facility] 07/08/2013 Active Terazol 7 0.4 % 1 application at bed time Vaginal Once a day for 7 day(s) 05/10/2015 Active LORazepam 0.5 MG 1 tablet as needed O rally Twice a day Active Atenolol 50MG 1 ORAL DAILY for -3 [facility] 09/09/2012 Active cloNIDine HCl 0.1MG 1 ORAL twice daily for -3 [facility] 08/30 Active Lisinopril 40MG 1 ORAL daily for -3 [facility] 09/09/2012 Active PARoxetine HCl 40MG 1 ORAL daily for -3 [facility] 09/09/2012 Active Problems Problem Type SNOMED Code ICD Code Onset Dates Problem Status W/U Status Risk Notes Problem Hyperlipidemia (37560904) Other and unspecified hyperlipidemia (272.4) Active confirmed Major Problem Depressive disorder (60043274) Depressive disorder, not elsewhere classified (311) Active confirmed Major Problem Glaucoma (07628189) Unspecified glaucoma (365.9) Active confirmed Diag Problem Benign essential hypertension (6160304) Essential hypertension, benign (401.1) Active confirmed Major Problem Female genital organ symptoms (220365369) Other specified symptom associated with female genital organs (625.8) Active confirmed Major Problem Postmenopausal bleeding (68159683) Postmenopausal bleeding (627.1) Active confirmed Diag Problem Menopausal symptom (58660036) Symptomatic menopausal or female climacteric states (627.2) Active confirmed Major Problem Left lower quadrant pain (334357115) Abdominal pain, left lower quadrant (789.04) Active confirmed Diag Problem Gynecological examination normal (878532878862223) Routine gynecological examination (V72.31) Active confirmed Problem Screening for malignant neoplasm of colon (398398667) Special screening for malignant neoplasms, colon (V76.51) Active confirmed Major Plan Of Treatment Pending Test Test Name Order Date Bone Density 10/19/2016 Urine Culture and Sensitivity 05/10/2015 Insurance Providers Payer Name Payer Address Payer Phone Subscriber Number Group Number Insured Name Patient Relationship to Insured Coverage Start Date Coverage End Date [employer] [place] [address] [place] [address] [phone] [id number] JUNE ESTEVES Self - patient is the insured [facility] C[facility] LINK [address] [place], [place] [id number] JUNE ESTEVES Self - patient is the [...] TONSILLECTOMY APPENDECTOMY PITUITARY GLAND, [facility]UMOR EXCISION [facility]ization History Reason Date(Month/Year) CHILD SEE SURGICAL HX
--- OUTSIDE RECORDS SUMMARY | 2024-12-18 11:25 | XMS_ITS | Clinical Summary ---
Author Organization [facility] Address [address] [place] [phone] Phone Care Team Providers Care Hot Stamp Operator Name Role Phone Radu Welch MD Primary Care Provider [phone] Allergies No known active allergies Medications lisinopril [...] also be consided for placement of a guard rail installer. They can see their dentist or an [...] average glucose, using the formula of the P6I-Axlwisv Average Glucose study (ADAG), Diabetes Care, Vol.31,#8, [...] Most Recently Relevant to Health Maintenance Insurance [facility] MEDICARE [facility] MEDICARE [facility] Care Teams Hot Stamp Operator Relationship Specialty Start Date End Date Radu Welch MD [id number] [place] PCP - General 10/10/20
--- OUTSIDE RECORDS SUMMARY | 2024-12-18 11:25 | XMS_ITS ---
Author Organization [facility] Address [address] [place] [phone] Care Team Providers Care Stock Checker Name Role Phone Radu Welch MD Primary Care Provider Jayashree Martinez [phone] Encounters Encounter Location Date Provider Diagnosis [address] [address] 12/17/2024 Jayashree Fink Plan Of Treatment Next Appt Details Provider Name:Jayashree Pressley Aleks , 01/18/2025 08:15:00 AM, [address] [place], [phone], Progress Notes * Alivia WILDEOB:03/1955 (69 yo F)Acc No.[id number]:12/17/2024 Progress Note Patient:?YGTrisha GRANDE Provider:?Jayashree Fink DPM :1955???Age:69 Y???Sex:Female D ate:12/17/2024 Address:[address] [place] [address], [place] [id number] Pcp:Radu Welch MD Subjective: * Chief Complaints: * ??? * Medical History:? Objective: * Vitals:? Assessment: Plan: * Treatment: * Images: * The named appointment provid er may or may not be the originator of this progress note, and it is not deemed complete until electronically signed by the appointment provider. Sign off status: Pending * Provider:?Jayashree Fink DPM Date:?2024 Generated for Kun pelayo/Isaiah/Alok on:?12/18/2024 11:25 AM EDT
--- OUTSIDE RECORDS SUMMARY | 2024-12-18 11:25 | XMS_ITS ---
Author Organization [facility] Address [address] [place] [phone] Care Team Providers Care Wholesale And Retail Merchant Name Role Phone Radu Welch MD Primary Care Provider Pearl Jayashree Duke Unavailable [phone] REASON FOR VISIT r/s Encounters Encounter Location Date Provider Diagnosis [address] [address] 11/18/2024 Jayashree Fink Plan Of Treatment Next Appt Details Provider Name:Jayashree Pressley Aleks , 01/18/2025 08:15:00 AM, [address] [place] [address], [phone], Progress Notes * Alivia WILDEOB:03/1955 (69 yo F)Acc No.[id number]:11/18/2024 Patient:?Trisha WILDE :1955???Age:69 Y???Sex:Female Address:[address] [place] [address], [place] [address] * true * Date:? Generated for Printi gita/Falambertog/eTransmitting on:?12/18/2024 11:24 AM EDT
== END 2024-12-18 10:41 | disposition home or self-care (01) ==
LOC: HO.HMCHD 09:49
PROVIDERS: PCP Internal Medicine; Visit Provider Internal Medicine
DX: M21.371 Foot drop, right foot (principal); I48.0 Paroxysmal atrial fibrillation

== ENCOUNTER → 2024-12-18 09:49 | Outpatient (BNVA) | payer MEDICARE, BC, OTHER, SELFPAY | PROVIDERS: PCP Internal Medicine; Visit Provider Internal Medicine | DX: Z76.89 Persons encountering health services in other specified circumstances (principal); M21.371 Foot drop, right foot; I48.0 Paroxysmal atrial fibrillation; E11.9 Type 2 diabetes mellitus without complications; M54.17 Radiculopathy, lumbosacral region; Z79.01 Long term (current) use of anticoagulants | CPT/HCPCS: 96127; 99202 ==

== ENCOUNTER 2024-12-18 10:54 | Outpatient (REF) | payer MEDICARE, BC, OTHER, SELFPAY ==
[2024-12-18 13:20] LABS: MANUAL DIFF FLAG NO
[2024-12-18 13:33] LABS: Basophils Absolute Auto 0.1 X10*3/uL (0.0-0.2); Basophils Percent Auto 0.6 % (0-2); Eosinophils Absolute Auto 0.2 X10*3/uL (0.0-0.4); Eosinophils Percent Auto 2.6 % (0-4); Hematocrit 41.1 % (37.0-47.0); Hemoglobin 13.4 g/dl (12.0-16.0); Imm Gran Abs Auto 0.04 X10*3/uL (0.00-0.03); Imm Gran Pct Auto 0.5 % (0.0-0.4); Lymphocytes Absolute Auto 2.3 X10*3/uL (1.2-4.9); Lymphocytes Percent Auto 26.2 % (20-40); Mean Corpuscular HGB Conc 32.6 g/dl (31.0-35.0); Mean Corpuscular Hemoglobin 28.5 pg (27.0-33.0); Mean Corpuscular Volume 87.4 fL (80.0-98.0); Mean Platelet Volume 9.8 fL (9.4-12.3); Monocytes Absolute Auto 0.8 X10*3/uL (0.1-1.2); Monocytes Percent Auto 8.6 % (2-11); Neutrophils Absolute Auto 5.4 x10*3/uL (2.0-8.3); Neutrophils Percent Auto 61.5 % (45-73); Platelet Count 248 X10*3/uL (160-400); Red Cell Distribution Width 13.8 % (11.0-16.0); White Blood Count 8.8 X10*3/uL (4.8-10.8)
[2024-12-18 13:53] LABS: Estimated Average Glucose 146 mg/dL; Hemoglobin A1c % 6.7 % (<6.0); Total Hemoglobin (HGBA1C) 3536.1623 umol/L
[2024-12-18 13:57] LABS: Alanine Aminotransferase 14 U/L (0-31); Albumin Level 4.1 g/dL (3.5-5.0); Alkaline Phosphatase 69 U/L (39-117); Anion Gap 10 (12-20); Aspartate Amino Transferase 16 U/L (5-31); Bilirubin Total 0.4 mg/dL (0.0-1.0); Blood Urea Nitrogen 14 mg/dL (9-16); Calcium 9.5 mg/dL (8.4-10.2); Carbon Dioxide 27 mmol/L (22-29); Chloride 109 mmol/L (96-108); Estimated Glomerular Filt Rate > 60; Glucose Random 135 mg/dL (60-115); Sodium 142 mmol/L (135-145); Total Protein 7.4 g/dL (6.5-8.0)
[2024-12-21 17:44] LABS: Lyme Abs Screen <0.90 index
== END 2024-12-18 10:55 | disposition home or self-care (01) ==
LOC: HO.10HDL 10:54
PROVIDERS: Visit Provider Internal Medicine
DX: Z76.89 Persons encountering health services in other specified circumstances (principal); M21.371 Foot drop, right foot; I48.0 Paroxysmal atrial fibrillation; E11.9 Type 2 diabetes mellitus without complications; M54.17 Radiculopathy, lumbosacral region; M51.369 Other intervertebral disc degeneration, lumbar region without mention of lumbar back pain or lower extremity pain; F41.1 Generalized anxiety disorder; I10 Essential (primary) hypertension; Z79.01 Long term (current) use of anticoagulants
CPT/HCPCS: 36415; 80053; 83036; 85025; 86617; 86618; 96127; 99202

== ENCOUNTER 2024-12-21 12:00 | Outpatient (AMB) | payer MEDICARE, BC, OTHER, SELFPAY ==
--- NOTE | 2024-12-21 12:29 | MHC.OFFVISPS ---
Intake Intake Visit Reasons: depression Allergies nifedipine [NIFEDIPINE] Allergy (Unknown, Verified 12/18/24 09:57) UNKNOWN- DOES NOT REMEMBER Pt states no known allergy to Allergy (Unknown, Uncoded 12/18/24 09:57) n/a HPI- Psychiatric Chief Complaint: depression HPI Narrative: Pt seen in psych f/u feels down regarding her physical health had 5 wks PT not overly depressed but does get overwhelmed at times by chronic pain drop foot groin pain and no clear diagnosis. She did have nerve conduction studies and did see Dr. Warner from Neurosurgery who did not recommend spinal surgery. The patient did recently lose her primary care doctor when Dr. Welch her longstanding primary care physician had to retire. The patient did meet a new primary care provider there are ongoing concerns regarding meeting someone new and she likes to be active and has been somewhat relatively incapacitated. Patient continues on Paxil 40 mg daily clonazepam 0.5 mg that she takes about once a month Wellbutrin 100 mg. Last EKG was normal sinus rhythm not atrial fibrillation. The patient does have some mild depressive breakthroughs her PHQ-9 is 10 JUSTIN is 10 she does worry about her physical health Past Psychiatric History: History of panic disorder chronic dysthymia some of the anxiety difficulties started with prolactinoma and history of surgery Mental Status Exam Mental Status Exam Narrative: Mental Status Exam Narrative: Appearance: Casually dressed Behavior: Cooperative appropriate psychomotor: Within normal limits Speech: Normal volume and prosody Thought proccess logical and goal-directed Thought content: Concerns regarding recent medical issues changes in providers and feeling frustrated that she does not have clear answers Mood: Somewhat down and anxious Affect: Appropriate to mood constrict SI:denies HI:denies VH/AH:none Delusions: None Insight/judgment: Good insight and judgment Memory/cog: Intact Assessment and Plan Assessment & Plan (1) Generalized anxiety disorder: Status: Acute Code(s): F41.1 - Generalized anxiety disorder (2) Dysthymia: Status: Acute Code(s): F34.1 - Dysthymic disorder Plan Change longer-acting clonazepam to lorazepam 0.5 mg to decrease fall risk patient only uses 1 or 2 times a month for panic continue Wellbutrin SR 100 mg daily Paxil 40 mg daily patient has not wanted to change. No cognitive impairment sensorium was clear good attention. Medications: New lorazepam 0.5 mg PO DAILY PRN 30 tabs 1RF anxiety Refilled bupropion HCl SR 100 mg PO DAILY 90 tabs 1RF paroxetine HCl (Paxil) 40 mg PO DAILY 90 tabs 1RF Counseling and coordination of Care Details-Self Mgmt counseling: Discussed issues and workup regarding recent medical concerns Medication management counseling: Effectiveness and Side effects Diagnosis and Prognosis Counseling: Impact of diagnosis on life functions and Adequacy of current interventions Details-Diagnosis/Prognosis counseling: Patient might benefit from change to Cymbalta but stress over cross tapering would be quite difficult. Wishes to not make any changes this time we did however change clonazepam 0.5 mg p.r.n. to lorazepam 0.5 mg p.r.n. which she rarely uses Details: I spent [39] minutes reviewing the record, seeing the patient and documenting in the medical record. Counseling provided to the patient/caregiver as outlined below. Addressed patient/caregiver concerns regarding current medication regime including effective adherence. Addressed patient/caregiver concerns regarding diagnosis and prognosis including accuracy of diagnosis, prognosis over time, impact of diagnosis. Addressed patient/caregiver concerns regarding impact of recent stressors. [facility] Medical History (Updated 12/20/24 @ 20:50 by Jaqueline Ventura MD) Type 2 diabetes mellitus without complications Diverticulosis of large intestine without perforation or abscess without bleeding 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 Low back pain, unspecified Pain in left shoulder Intercostal pain Major depressive disorder, recurrent, unspecified Acute cough Unilateral primary osteoarthritis, left knee CELIA on CPAP Diastolic dysfunction Panic disorder Generalized anxiety disorder Dysthymia PAF (paroxysmal atrial fibrillation) New onset atrial fibrillation Prediabetes HTN (hypertension) Surgical History History of nasal surgery S/P cardiac cath History of hysterectomy Family History Mother Bladder cancer Social History Housing: House Alcohol intake: never Comment: instructed to ring dc for assistance. 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
== END 2024-12-21 12:48 | disposition home or self-care (01) ==
LOC: HO.HOP 12:00
PROVIDERS: PCP Internal Medicine; Visit Provider Psychiatry & Neurology Psychiatry
DX: F41.1 Generalized anxiety disorder (principal); F34.1 Dysthymic disorder
CPT/HCPCS: 90833; 99213

== ENCOUNTER → 2024-12-21 12:00 | Outpatient (BNVA) | payer MEDICARE, BC, OTHER, SELFPAY | PROVIDERS: PCP Internal Medicine; Visit Provider Psychiatry & Neurology Psychiatry | DX: F41.1 Generalized anxiety disorder (principal); F34.1 Dysthymic disorder; G89.29 Other chronic pain; M21.379 Foot drop, unspecified foot; Z71.89 Other specified counseling | CPT/HCPCS: 99212 ==

== ENCOUNTER 2024-12-24 08:42 | Outpatient (REF) | payer MEDICARE, BC, OTHER, SELFPAY ==
--- NOTE | ~2024-12-24 | XR_ITS ---
EXAMINATION: XR KNEE, LEFT CLINICAL INFORMATION: M25.562 - Pain in left knee COMPARISON: 09/03/2019. 05/17/2017. TECHNIQUE: AP view bilateral knees standing, lateral and patellofemoral views left knee. FINDINGS: Right Knee: Mild to moderate medial compartment osteoarthritis. Mild lateral compartment arthritis. Mild spurring of the tibial spines. Normal alignment. Normal soft tissues. Left Knee: No fracture, dislocation, or suspicious bone lesion. Moderate to severe medial compartment joint space narrowing with marginal osteophytic spurs. There is near complete joint space loss. There is compensatory widening of the lateral compartment with lateral marginal spurs. There is mild varus angulation of the joint. There is spurring of the tibial spines. There is mild to moderate arthritis in the patellofemoral joint. No definite significant joint effusion. Normal soft tissues. XR/XR knee LT 3V IMPRESSION: 1. Tricompartmental left knee osteoarthritis, moderate to severe in the medial compartment. Electronically signed by: Cornell Higgins MD 12/24/2024 03:58 PM EDT
== END 2024-12-24 08:43 | disposition home or self-care (01) ==
LOC: HO.HOSX 08:42
PROVIDERS: Visit Provider Orthopaedic Surgery
DX: M16.11 Unilateral primary osteoarthritis, right hip (principal); M17.12 Unilateral primary osteoarthritis, left knee; M21.371 Foot drop, right foot; M25.562 Pain in left knee
CPT/HCPCS: 20610; 73562; 99212; J0665; J1100; J2003

== ENCOUNTER 2024-12-24 11:17 | Outpatient (AMB) | payer MEDICARE, BC, OTHER, SELFPAY ==
--- NOTE | 2024-12-24 11:21 | MHC.OFFVIS ---
Intake Visit Reasons: New prob- LT knee pain Intake Note: Susanna is a 69 year old female who presents today for a new problem visit with complaints of Left Knee pain. Patient reports that she is having ongoing left knee pain Allergies nifedipine [NIFEDIPINE] Allergy (Unknown, Verified 12/18/24 09:57) UNKNOWN- DOES NOT REMEMBER Pt states no known allergy to Allergy (Unknown, Uncoded 12/18/24 09:57) n/a HPI HPI New prob- LT knee pain: Details: The patient is a 69-year-old female presenting with pain management and evaluation of arthritis symptoms in the left knee and right hip. She describes severe pain in the left knee, significantly affecting her ability to walk and rise from a seated position, occurring with movement. A previous knee injection was helpful temporarily. The patient also reports a slight increase in right hip-related groin pain. She had an injection which up utnil recently had been very helpful. Additionally, the patient has left foot drop and has received treatment with prednisone and physiotherapy. The foot drop persists, affecting gait and likely contributing to increased musculoskeletal discomfort. She is scheduled to see a neurologist. 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 Patient Tobacco Use Status: Former Tobacco user Advance Directives Date on File: 07/03/22 service: No Current occupational status: retired Cognitive needs: Yes (cane) Hearing needs: Yes (b/l hearing aids) Vision needs: Yes (rx glasses) Physical Exam Extrem Other: Right foot drop present + Impingement test right hip TTP medial compartment left knee Office Procedures Joint Inj/Aspir; Non-Pain Clin Joint Injection/Drain Details: Injected 1 mL of Decadron and 3 mL 1% lidocaine and 3 mL of 0.25% Marcaine. Site was prepped using aseptic technique. Patient tolerated the procedure well. Shoulders, Hips, Knees, Knee Large Joint Injection : Left Knee Coding Procedure code (CPT) selection complete Assessment & Plan Assessment & Plan (1) Arthritis of right hip: Code(s): M16.11 - Unilateral primary osteoarthritis, right hip Category: Medical Plan: I explained that arthritis in the left knee and right hip, along with unresolved foot drop, are likely making gait difficult. These should be managed by a combination of injections and physical therapy . The patient was informed about the risks and benefits of the left knee injection procedure. Regarding the foot drop, I emphasized the importance of the neurologist consult and the role of effective physical therapy. I recommend an intra-articular injection of the left knee. Continual physical therapy focusing on proper gait mechanics will address issues related to foot drop. I recommend follow up for the right hip arthritis. A referral to neurology for persistent foot drop is in progress. Patient was informed and verbally consented to the use of an ambient scribe for clinic note documentation during this visit. (2) Arthritis of left knee: Code(s): M17.12 - Unilateral primary osteoarthritis, left knee Category: Medical Plan: Injected left knee (3) Right foot drop: Code(s): M21.371 - Foot drop, right foot Category: Medical Plan: neuro consulted Orders: Orders XR knee LT 3V 12/24/24 M25.562 - Pain in left knee PT Evaluation and Treatment Today M16.11 - Unilateral primary osteoarthritis, right hip, M17.12 - Unilateral primary osteoarthritis, left knee, M21.371 - Foot drop, right foot Patient Instructions: - Keep the injected knee free from excessive movement for 24 hours. - Continue with physical therapy twice a week, focusing on improving gait mechanics. - Monitor any recurrence of significant leg or groin pain and report it immediately. - Follow up with the neurology department as soon as the appointment is scheduled. - Contact pain management if radiating pain along the leg redevelops. - Note response and improvement post-injection and report in subsequent visit. Coding Level of Care Code Est Pt Level 4 (08152) Diagnoses Arthritis of right hip M16.11 Arthritis of left knee M17.12 Right foot drop M21.371 CPT Codes Shoulders, Hips, Knees, - Knee Large Joint Injection : Left Knee ([id number])
== END 2024-12-24 12:10 | disposition home or self-care (01) ==
LOC: HO.HOS 11:18
PROVIDERS: PCP Internal Medicine; Visit Provider Orthopaedic Surgery
DX: M16.11 Unilateral primary osteoarthritis, right hip (principal); M17.12 Unilateral primary osteoarthritis, left knee; M21.371 Foot drop, right foot
CPT/HCPCS: 20610; 99214

== ENCOUNTER → 2024-12-24 11:19 | Outpatient (BNV) | payer MEDICARE, BC, OTHER, SELFPAY | PROVIDERS: Visit Provider Radiology Diagnostic Radiology | DX: M17.12 Unilateral primary osteoarthritis, left knee (principal) | CPT/HCPCS: 73562 ==

== ENCOUNTER 2025-01-14 08:56 | Outpatient (AMB) | payer MEDICARE, BC, OTHER, SELFPAY ==
--- NOTE | 2025-01-14 08:58 | MHC.OFFVIS ---
Vital Signs 01/14/25 09:00 Height 5 ft 6 in Weight 235 lb BMI 37.9 BP 140/72 H Blood Pressure Location Lt brachial Position Sitting Pulse 64 Pulse Source Monitor Intake Visit Reasons: 1 yr f/up Superintendent Communications Required: No Accompanied by: Self / Same As Patient Allergies nifedipine [NIFEDIPINE] Allergy (Unknown, Verified 12/18/24 09:57) UNKNOWN- DOES NOT REMEMBER Pt states no known allergy to Allergy (Unknown, Uncoded 12/18/24 09:57) n/a Medication List - Last Reconciled 01/14/25 by Rubin Morel MD acetaminophen (Tylenol Extra Strength) 1,000 mg (2 x 500 mg) PO Q6H PRN [AFO As directed] apixaban (Eliquis) 5 mg PO BID brimonidine 0.15% 1 drp ophthalmic (eye) BEDTIME brimonidine 0.2% drps ophthalmic (eye) bupropion HCl SR 100 mg PO DAILY carvedilol 12.5 mg PO BID cholecalciferol (vitamin D3) 25 mcg PO BEDTIME clonazepam 0.5 mg PO DAILY PRN clonidine HCl 0.1 mg PO BID 90 days hydralazine 25 mg PO TID latanoprost 0.005% 0 drps ophthalmic (eye) lidocaine 5% (Lidoderm) 1 patch topical DAILY PRN MDD remove after 12 hours lisinopril 40 mg PO BEDTIME lorazepam 0.5 mg PO DAILY PRN paroxetine HCl (Paxil) 40 mg PO DAILY simvastatin 20 mg PO BEDTIME spironolactone 25 mg PO DAILY HPI Comments Details: Josefina returns for follow-up regarding various cardiac concerns. To recall, in 2021, she was admitted for COVID infection. At that time, she also had atrial fibrillation. She was commenced on Eliquis. Her blood pressures were quite high and changes made including changing atenolol to carvedilol and addition of hydralazine. Overall, no specific cardiac concerns. Feels more or less the same as before. Lots of aches and pains. Anxiety is just the same. 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 Patient Tobacco Use Status: Former Tobacco user Advance Directives Date on File: 07/03/22 service: No Current occupational status: retired Cognitive needs: Yes (cane) Hearing needs: Yes (b/l hearing aids) Vision needs: Yes (rx glasses) Review of Systems Const Denies chills, Denies fatigue, Denies fever(s), Denies frequent falls, Denies weakness, Denies weight gain and Denies weight loss ENT Denies dizziness Card Denies chest pain, Denies leg edema, Denies lightheadedness, Denies palpitations, Denies dyspnea and Denies dyspnea on exertion Resp Denies cough, Denies dyspnea and Denies dyspnea on exertion GI Denies hematochezia Musc Denies abnormal gait, Denies muscle weakness, Denies numbness, Denies radiating pain into limb and Denies tingling Neuro Denies abnormal gait, Denies dizziness, Denies frequent falls, Denies numbness, Denies tingling and Denies weakness Endo Denies fatigue and Denies palpitations Physical Exam Vital Signs: Last Vital Signs Pulse 64 01/14/25 09:00 BP 140/72 H 01/14/25 09:00 BMI result Body Mass Index 37.9 Const General: comfortable and no acute distress Orientation/consciousness: patient oriented x3 HEENT Other: Unremarkable Head: Yes normal to inspection Neck Neck: Yes normal visual inspection Chest Chest palpation & inspection: normal inspection of the chest Resp Auscultation: clear to auscultation bilaterally Cardio Palpation: normal PMI Heart sounds: S1 normal heart sound present, S2 normal heart sound present, no gallops, no murmurs and no rubs GI Palpation (GI): Soft to palpation Back/Spine/Pelvis Other: unremarkable Skin General skin exam: no rashes or lesions noted Neuro General: patient oriented x3 Extrem General: Yes normal to inspection Psych Mental Status: mental status grossly normal Office Procedures EKG Details: EKG with underlying sinus rhythm at 64/Min; sinus arrhythmias; rightward axis; left posterior fascicular block; slight GA prolongation to 246 milliseconds; [place]. [address]-Asfnglajapvysudhq, Complete Assessment & Plan Assessment & Plan (1) PAF (paroxysmal atrial fibrillation): Code(s): I48.0 - Paroxysmal atrial fibrillation Category: Medical Plan: Continue Carvedilol. Continue Eliquis. (2) Essential hypertension: Code(s): I10 - Essential (primary) hypertension Category: Medical Plan: Concurrently managed with Nephrology. No changes made on the current regimen. (3) S/P cardiac cath: Code(s): Z98.890 - Other specified postprocedural states Category: Surgical Plan: Cardiac catheterization 2021 with normal coronary arteries. (4) Diastolic dysfunction: Code(s): I51.89 - Other ill-defined heart diseases Category: Medical Plan: Prior echocardiogram with moderate diastolic dysfunction. Suspect all related to chronic hypertension. Again mainly blood pressure management. (5) First degree heart block: Code(s): I44.0 - Atrioventricular block, first degree Category: Medical Plan: First-degree heart block on the EKG. She needs a beta-blockers for blood pressure management. However, may not be able to increase does too much. (6) CELIA (obstructive sleep apnea): Code(s): G47.33 - Obstructive sleep apnea (adult) (pediatric) Category: Medical Plan: On CPAP. Plan Discussion Notes I reviewed the patient's ongoing management for hypertension and atrial fibrillation, noting fluctuations in her blood pressure related to prior medication adjustments now stabilized. The potential recurrence of atrial fibrillation necessitates ongoing vigilance. Pain management balances arthritis symptoms while respecting potential analgesic side effects. Effective sleep apnea control through CPAP was acknowledged, highlighting its importance in her treatment plan. I ensured the patient comprehends the current management strategy, emphasizing medication consistency, even amid limited specialist availability affecting arthritis treatment access. Arrangements for continuing care and any subsequent consultation issues were discussed, reinforcing follow-up adherence and supportive management. Patient was informed and verbally consented to the use of an ambient scribe for clinic note documentation during this visit. Patient Instructions: - Continue current medication regimen, including Carvedilol. - avoid frequent use of Advil and Motrin. - Maintain regular use of the CPAP machine at night. - Report any new or worsening symptoms, especially regarding atrial fibrillation or blood pressure issues. - Attend all follow-up appointments as previously scheduled. - Limit activities that aggravate joint pain; discuss any exercise modifications needed with the care team. Coding Level of Care Code Est Pt Level 4 (59044) Complex EM visit Add On G2211 Diagnoses PAF (paroxysmal atrial fibrillation) I48.0 Essential hypertension I10 S/P cardiac cath Z98.890 Diastolic dysfunction I51.89 First degree heart block I44.0 CELIA (obstructive sleep apnea) G47.33 CPT Codes EKG - CPT: 46495-Sxmxzdzouqdgeggmt, Complete ([id number])
[2025-01-14 09:00] VITALS: BP 140/72; PULSE 64; BMI 37.9
--- OUTSIDE RECORDS SUMMARY | 2025-01-14 09:42 | XMS_ITS | Patient Health Record ---
[facility] Address [address] [place] [address] Care Team Providers Care Bow Stapler Name Role Phone TONY GARCES M.D. Primary Care Provider Unavaila Felicia Pool Unavailable [phone] Reason For Referral No Information Medications Medication SIG (Take, Route, Fr equency, Duration) Notes Start Date End Date Status Simvastatin 20MG 1 ORAL daily for -3 [facility] 09/09/2012 Active Spironolactone 25MG 1 ORAL daily for -3 [facility] 07/08/2013 Active Terazol 7 0.4 % 1 application at bed time Vaginal Once a day for 7 day(s) 05/10/2015 Active LORazepam 0.5 MG 1 tablet as needed O rally Twice a day Active Atenolol 50MG 1 ORAL DAILY for -3 [facility] 09/09/2012 Active cloNIDine HCl 0.1MG 1 ORAL twice daily for -3 [facility] 08/30 Active Lisinopril 40MG 1 ORAL daily for -3 [facility] 09/09/2012 Active PARoxetine HCl 40MG 1 ORAL daily for -3 [facility] 09/09/2012 Active Problems Problem Type SNOMED Code ICD Code Onset Dates Problem Status W/U Status Risk Notes Problem Hyperlipidemia (70017478) Other and unspecified hyperlipidemia (272.4) Active confirmed Major Problem Depressive disorder (73137320) Depressive disorder, not elsewhere classified (311) Active confirmed Major Problem Glaucoma (04118187) Unspecified glaucoma (365.9) Active confirmed Diag Problem Benign essential hypertension (0927208) Essential hypertension, benign (401.1) Active confirmed Major Problem Female genital organ symptoms (824907854) Other specified symptom associated with female genital organs (625.8) Active confirmed Major Problem Postmenopausal bleeding (81324901) Postmenopausal bleeding (627.1) Active confirmed Diag Problem Menopausal symptom (85131436) Symptomatic menopausal or female climacteric states (627.2) Active confirmed Major Problem Left lower quadrant pain (555944894) Abdominal pain, left lower quadrant (789.04) Active confirmed Diag Problem Gynecological examination normal (242534520375839) Routine gynecological examination (V72.31) Active confirmed Problem Screening for malignant neoplasm of colon (639371894) Special screening for malignant neoplasms, colon (V76.51) Active confirmed Major Plan Of Treatment Pending Test Test Name Order Date Bone Density 10/19/2016 Urine Culture and Sensitivity 05/10/2015 Insurance Providers Payer Name Payer Address Payer Phone Subscriber Number Group Number Insured Name Patient Relationship to Insured Coverage Start Date Coverage End Date [employer] [address] [place] [address] [phone] [id number] JUNE ESTEVES Self - patient is the insured [facility] [address] [place], [place] [id number] [phone] [id number] JUNE ESTEVES Self - patient is the [...] TONSILLECTOMY APPENDECTOMY PITUITARY GLAND, [facility]UMOR EXCISION [facility] Hospitalization History Reason Date(Month/Year) CHILD SEE SURGICAL HX
--- OUTSIDE RECORDS SUMMARY | 2025-01-14 09:42 | XMS_ITS | Patient Health Record ---
Author Organization [facility] Address [address] [place] [address] Care Team Providers Care Tufting Machine Operator Name Role Phone Radu Welch MD Primary Care Provider Unavaila susan FinkLizzye Unavailable [phone] Allergies Allergen (clinical drug ingredient) Drug/Non Drug [...] Problem Acquired hammer toe of right foot (2057339794866005 ) Other hammer toe(s) (acquired), right foot (M20.41) Active confirmed Problem Acquired hammer toe of left foot (0113686725957750 ) Other hammer toe(s) (acquired), left foot (M20.42) Active confirmed Problem Localized, primary osteoarthritis of the ankle and/or foot (151938554) Primary osteoarthritis, left ankle and foot (M19.072) Active confirmed Problem Polyneuropathy due to type 2 diabetes mellitus (541808281) Type 2 diabetes mellitus with diabetic polyneuropathy (E11.42) Active confirmed Problem 897053798 Hammer toe of right foot (M20.41) Active confirmed Problem 841760948 Hammer toe of left foot (M20.42) Active confirmed Problem 529199911 Equinus contracture of left ankle (M24.572) Active confirmed Problem 789403159 Equinus contracture of right ankle (M24.571) Active confirmed Problem Diabetic foot ulcer (125532065) Skin ulcer of toe of right foot, limited to breakdown of skin (L97.511) Active confirmed Problem Diabetic foot ulcer (820379209) Skin ulcer of toe of right foot with fat layer exposed (L97.512) Active confirmed Problem Diabetic foot (367886828) Skin ulcer of toe of left foot with fat layer exposed (L97.522) Active confirmed Problem 81903996 Essential hypertension (I10) Active confirmed Vital Signs Blood pressure diastolic 70 mm Hg 09/14/2024 Height 5ft6in in 09/14/2024 Blood pressure systolic 120 mm Hg 09/14/2024 Weight 239 lbs 09/14/2024 BMI 38.57 kg/m2 09/14/2024 Procedures Procedure Date Ordered Date Performed Result Body Sit e 11841-Isbj Destruction, 1-14 03/16/2024 N/A 67018-Jhdfvwmi Plate 03/16/2024 N/A 56670-JNHL SKIN LESIONS, 2 TO 4 03/16/2024 N/A A3407-SEFRHJPN DYSTROPHIC NAILS ANY # 03/16/2024 N/A 92346-Lmnh Destruction, 1-14 06/22/2024 N/A 57176-SNRE SKIN LESIONS, 2 TO 4 06/22/2024 N/A Q8970-IYYJFXSF DYSTROPHIC NAILS ANY # 06/22/2024 N/A 52977-Qqwt Destruction, 1-14 09/14/2024 N/A 93753-PKJF SKIN LESIONS, 2 TO 4 09/14/2024 N/A B2580-SDBWVOJG DYSTROPHIC NAILS ANY # 09/14/2024 N/A Encounters Encounter Location Date Provider Diagnosis [address] [address] 03/16/2024 Jayashree Fink Other viral warts B07.8 ; Pain in left foot M79.672 ; Type 2 diabetes mellitus with diabetic polyneuropathy E11.42 ; Other hammer toe(s) (acquired), left foot M20.42 ; Other hammer toe(s) (acquired), right foot M20.41 and Ingrown nail L60.[address] [address] 06/22/2024 Jayashree Fink Other viral warts B07.8 ; Other hammer toe(s) (acquired), right foot M20.41 ; Pain in left foot M79.672 ; Type 2 diabetes mellitus with diabetic polyneuropathy E11.42 ; Other hammer toe(s) (acquired), left foot M20.42 and Ingrown nail L60.[address] [address] 09/14/2024 Jayashree Aleks Other viral warts B07.8 ; Right foot drop M21.371 ; Pain in left foot M79.672 ; Type 2 diabetes mellitus with diabetic polyneuropathy E11.42 ; Injury of right peroneal nerve, initial encounter S84.11XA and Neuritis M79.[address] [address] 01/24/2024 Jayashree Fink [address] [address] 09/14/[address] [address] 11/18/[address] [address] 12/11/2024 Jayashree Fink Assessments Encounter Date Diagnosis (ICD Code) Assessment Notes Treatment Notes Treatment Clinical Notes Section Notes 03/16/2024 Other viral warts (ICD-10 - B07.8) [...] in left foot (ICD-10 - M79.672) 03/16/2024 Type 2 diabetes mellitus with diabetic [...] - L60.0) 09/14/2024 Neuritis (ICD-10 - M79.2) 03/16/2024 Other 09/14/2024 Other Plan Of Treatment Pending Test Test Name Order Date 80455-Lxxe Destruction, 1-14 07/20/2019 18152-Ioah Destruction, 1-01/18/2020 46896-Jdlb Destruction, 1-14 04/18/2020 38208-Slse Destruction, -14 07/07/2020 36730-Lrbq Destruction, -14 10/13/2020 06907-Zacn Destruction, -14 01/12/2021 88025-Wgjw Destruction, -14 05/15/2021 56662-Jsmc Destruction, -14 08/31/2021 62688-Yxrt Destruction, -14 11/28/2021 41421-Ebbt Destruction, -14 03/29/2022 15144-Imdh Destruction, -14 07/02/2022 85609-Bwvy Destruction, -14 10/11/2022 11254-Xdzc Destruction, -14 04/25/2023 65281-Reca Destruction, -14 08/05/2023 01085-Yyws Destruction, -14 01/17/2023 40003-Hxul Destruction, -14 12/23/2023 21198-Mdel Destruction, -14 03/16/2024 41011-Uopr Destruction, -14 06/22/2024 43878-Jvdd Destruction, -14 09/14/2024 31778-Jofvxmxe Plate 03/16/2024 38872-Hblicipi Plate 08/05/2023 91169-Zgprduig Plate 01/17/2023 98727-Lsgigdbs Plate 03/29/2022 64001-Xqxtvowu Plate 11/28/2021 49402-Fqrgfncd Plate 08/31/2021 78369-Ipgneieb Plate 05/15/2021 46903-Mpzflmni Plate 01/12/2021 81126-Trdcewjj Plate 04/18/2020 61970-Vojeaybq Plate Each Additional 09789-NRI 11/21/2023 51278- Debride <25 sq cm 12/23/2023 78341-IRAYFTI SKIN/TISSUE 12/05/2023 48885-HNED SKIN LESIONS, 2 TO 4 12/05/19 52723-KIJN SKIN LESIONS, 2 TO 4 08/05/20 05607-QTLS SKIN LESIONS, 2 TO 4 01/18/20 20461-DBCF SKIN LESIONS, 2 TO 4 10/11/19 17584-ZTEN SKIN LESIONS, 2 TO 4 07/02/20 48764-EQJI SKIN LESIONS, 2 TO 4 12/23/19 24 84959-SCMR SKIN LESIONS, 2 TO 4 04/25/20 06389-OBUK SKIN LESIONS, 2 TO 4 03/16/20 14435-VBNG SKIN LESIONS, 2 TO 4 09/14/20 05705-NPCZ SKIN LESIONS, 2 TO 4 06/22/20 24 66499-UYNE SKIN LESIONS, 2 TO 4 04/18/20 55558-FZXK SKIN LESIONS, 2 TO 4 01/18/20 94093-LIRE SKIN LESIONS, 2 TO 4 07/20/20 53756-HLSK SKIN LESIONS, 2 TO 4 07/07/20 04412-OYOF SKIN LESIONS, 2 TO 4 10/13/19 74007-OWPY SKIN LESIONS, 2 TO 4 01/13/20 46675-JLDK SKIN LESIONS, 2 TO 4 05/15/20 47492-CVVB SKIN LESIONS, 2 TO 4 08/31/20 93008-FKVP SKIN LESIONS, 2 TO 4 11/29/19 22276-ENDB SKIN LESIONS, 2 TO 4 03/29/20 L9369-UFYRGGWV DYSTROPHIC NAILS ANY # A0313-BYWXVQLL DYSTROPHIC NAILS ANY # K0803-CQYTEYHJ DYSTROPHIC NAILS ANY # D2227-FCHSKSDY DYSTROPHIC NAILS ANY # V3108-FHOJJLCY DYSTROPHIC NAILS ANY # L3125-IZWSQPEZ DYSTROPHIC NAILS ANY # C3446-SXXKIVWV DYSTROPHIC NAILS ANY # R6744-DRBULCKR DYSTROPHIC NAILS ANY # K8728-NMSMYOZB DYSTROPHIC NAILS ANY # Q6265-HSWEJOJO DYSTROPHIC NAILS ANY # I7242-VKQMJLTQ DYSTROPHIC NAILS ANY # T7926-TQHYASBC DYSTROPHIC NAILS ANY # S0606-QWFGXJDG DYSTROPHIC NAILS ANY # L7609-BSMXSYHX DYSTROPHIC NAILS ANY # P8045-HXXCNHNK DYSTROPHIC NAILS ANY # Q5545-FCXPDCMN DYSTROPHIC NAILS ANY # S1757-DZOSVXUA DYSTROPHIC NAILS ANY # M2147-ATUGKBMM DYSTROPHIC NAILS ANY # I2944-XCCDHORD DYSTROPHIC NAILS ANY # Z4175-RQDJUXZW DYSTROPHIC NAILS ANY # Next Appt Details Provider Name:Jayashree Fink , 01/18/2025 08:15:00 AM, [address] [place], [address], Insurance Providers Payer Name Payer Address Payer Phone Subscriber Number Group Number Insured Name Patient Relationship to Insured Coverage Start Date Coverage End Date [employer] [address] [place] [phone] [id number] Josefina Wilde Self - patient is the insured [facility] [address] [place] [address] [id number] Josefina Wilde Self - patient is the insured [employer] [address] [place] [phone] [id number] MAINE WILDE Spouse - patient is the spouse of the insured Medical (General) History Medical History History ICD Code hypertension depression Arthritis Anxiety disorder Glaucoma Neuropathy Chicken pox Back,Hip,and Knee pain Carpal tunnel NIDDM type II diabetes Surgical History Surgery Date(Month/Year) hysterectomy 10/30/13 carpal tunnel surgery tumor removal appendectomy Pituitary sinus surgery 06/25/22 Hospitalization History Reason Date(Month/Year) ER [facility]- Foot pain 08/23 [facility]- 3 days sinus surgery complication uncontrollable nose bleed 2021 [facility]- covid 09/2021
--- OUTSIDE RECORDS SUMMARY | 2025-01-14 09:42 | XMS_ITS ---
Author Organization [facility] Address [address] [place] [address] Care Team Providers Care Roller Stainer Name Role Phone Radu Welch MD Primary Care Provider Pearl susan AleksJayashree Unavailable [phone] REASON FOR VISIT r/s Encounters Encounter Location Date Provider Diagnosis [address] [address] 11/18/2024 Jayashree Fink Plan Of Treatment Next Appt Details Provider Name:Jayashree Pressley Aleks , 01/18/2025 08:15:00 AM, [address] [place] [address], [address], Progress Notes * Alivia WILDEOB:03/1955 (69 yo F)Acc No.[id number]:11/18/2024 Patient:?Trisha WILDE :1955???Age:69 Y???Sex:Female Address:[address] [place] [address], [place] [address] * true * Date:? Generated for Printi gita/Falambertog/eTransmitting on:?01/14/2025 09:42 AM EDT
--- OUTSIDE RECORDS SUMMARY | 2025-01-14 09:42 | XMS_ITS | Clinical Summary ---
Author Organization [facility] Address [address] [place] [address] Phone Care Team Providers Care Head Mva Reactor Operator Name Role Phone Radu Welch MD Primary Care Provider [phone] Allergies No known active allergies Medications lisinopril [...] also be consided for placement of a core analyst. They can see their dentist or an [...] Comments Breast Cancer Screening 1955 Pneumococcal Vaccine: 50+ Ye ars (1 of 2 - PCV) 1972 Colorectal Cancer Screening: Annual FOBT 2002 Colorectal Cancer Screening: Colonoscopy 2002 Colorectal Cancer Screening: Sigmoidoscopy 2002 Diabetes: Hemoglobin A1C 03/21/2022 12/09/2018 Diabetes: Ophthalmology Exam 03/21/2022 Diabetes: Pedal Pulse Checked 03/21/2022 Diabetes: Sensory Foot Exam 03/21/2022 Diabetes: Visual Foot Exam 03/21/2022 Influenza Vaccine (Season Ended) 2025 Hepatitis B Vaccine Aged Out No longe [...] average glucose, using the formula of the D9Q-Uqtdhtz Average Glucose study (ADAG), Diabetes Care, Vol.31,#8, [...] MD LAB BLOOD ORDERABLES Final Resu lt [place] from Last 3 Months or Most Recently Relevant to Health Maintenance Insurance [facility] Medicare [facility] Medicare [facility] Care Teams Head Mva Reactor Operator Relationship Specialty Start Date End Date Radu Welch MD [address] [place] PCP - General 10/10/20
--- OUTSIDE RECORDS SUMMARY | 2025-01-14 09:43 | XMS_ITS ---
Author Organization [facility] Address [address] [place] [address] Care Team Providers Care Sql Server Consultant Name Role Phone Radu Welch MD Primary Care Provider Jayashree Martinez [phone] Encounters Encounter Location Date Provider Diagnosis [address] [address] 12/17/2024 Jayashree Fink Plan Of Treatment Next Appt Details Provider Name:Jayashree Pressley Aleks , 01/18/2025 08:15:00 AM, [address] [place], [address], Progress Notes * Alivia WILDEOB:03/1955 (69 yo F)Acc No.[id number]:12/17/2024 Progress Note Patient:?YGTrisha GRANDE Provider:?Jayashree Fink DPM :1955???Age:69 Y???Sex:Female D ate:12/17/2024 Address:[address] [place] [address], [place] [facility] Pcp:Radu Welch MD Subjective: * Chief Complaints: [...] Fink DPM Date:?2024 Generated for Kun pelayo/Isaiah/Alok on:?01/14/2025 09:43 AM EDT
--- OUTSIDE RECORDS SUMMARY | 2025-01-14 09:43 | XMS_ITS ---
Author Organization [facility] Address [address] [place] [address] Care Team Providers Care Group Insurance Specialist Name Role Phone Radu Welch MD Primary Care Provider Pearl Jayashree Duke Unavailable [phone] REASON FOR VISIT diab patient Encounters Encounter Location Date Provider Diagnosis [address] [address] 12/11/2024 Jayashree Fink Plan Of Treatment Next Appt Details Provider Name:Jayashree Fink , 01/18/2025 08:15:00 AM, [address] [place], [address], Progress Notes * Alivia WILDEOB:03/1955 (69 yo F)Acc No.[id number]:12/11/2024 Patient:?Trisha WILDE :1955???Age:69 Y???Sex:Female Address:[address] [place] [address], [place] [address] * true * Date:? Generated for Printi gita/Isaiah/eTransmitting on:?01/14/2025 09:43 AM EDT
--- OUTSIDE RECORDS SUMMARY | 2025-01-14 09:43 | XMS_ITS | Patient Health Record ---
Author Organization [facility] Address [address] [place] [address] Care Team Providers Care Psychiatric Lpn Name Role Phone Radu Welch MD Primary Care Provider Unavaila Good Will Unavailable [phone] Allergies Allergen (clinical drug ingredient) Drug/Non Drug [...] Problem Status W/U Status Risk Notes Problem 384516658 Encounter for screening for malignant neoplasm of colon (Z12.11) Active confirmed Problem 182399622 History of adenomatous polyp of colon (Z86.010) Active confirmed Problem 846072070 Bloating (R14.0) Active confirmed Problem Constipation (93170800) Constipation (K59.00) Active confirmed Problem 141580864 Flatulence (R14.3) Active confirmed Problem Long-term current use of anticoagulant (184962551) Anticoagulant long-term use (Z79.01) Active confirmed Problem 221539946340726 Pre-procedural examination (Z01.818) Active confirmed Vital Signs Blood pressure diastolic 00 mm Hg 10/27/2024 Height 66 in 10/27/2024 Blood pressure systolic 00 mm Hg 10/27/2024 Weight 233 lbs 10/27/2024 BMI 37.60 kg/m2 10/27/2024 Encounters Encounter Location Date Provider Diagnosis [facility] [address] [place] [address] 10/27/2024 Good Berry History of adenomato us [...] Provider Name:Good Berry , 02/12/2025 11:00:00 AM, [address] [place] [address] , [place], [place], [phone], Insurance Providers Payer Name Payer Address Payer Phone Subscriber Number Group Number Insured Name Patient Relationship to Insured Coverage Start Date Coverage End Date MEDICARE OF [place] [address] [place] [address] [id number] JUNE IBARRA Self - patient is the insured [facility] [address] [place], [place] [phone] [id number] JUNE IBARRA Self - patient is the insured [employer] [address] [place] [address] [phone] [id number] JUNE IBARRA Self - patient is the insured Medical (General) History Medical History History ICD Code Colonoscopy 03-17-2007 and in 11/2012 with the removal of a tubular adenoma Denies [place],CVA,Lung disease,renal disease HTN Hyperlipidemia GERD--normal upper endoscopy in 11/2012 IBS---normal duodenal and gastric biopsi es--no H.pylori--EGD in 11/2012 Anxiety/Depression Uterine fibroid Sleep apnea-uses a CPAP machine Glaucoma Diet-controlled diabetes Drop foot 07/2024 Afib-Dr. Morel Negative colonoscopy in 09/2018 Depression Surgical History Surgery Date(Month/Year) Carpal tunnel on the right D&C Pituitary gland surgery [facility] ESCOTO
--- OUTSIDE RECORDS SUMMARY | 2025-01-14 09:43 | XMS_ITS ---
[facility] Organization [facility] Address [address] [place] [address] Care Team Providers Care Open Hearth Furnace Laborer Name Role Phone Radu Welch MD Primary Care Provider Unavaila ble Good Berry Unavailable [phone] Allergies Allergen (clinical drug ingredient) Drug/Non Drug [...] Status W/U Status Risk Notes Problem Constipation (84162349) Constipation (K59.00) Active confirmed Problem Long-term current use of anticoagulant (772048198) Anticoagulant long-term use (Z79.01) Active confirmed Vital Signs Blood pressure systolic 00 mm Hg 10/27/19 25 Blood pressure diastolic 00 mm Hg 025 Height 66 in 10/27/2024 Weight 233 lbs 10/27/2024 BMI 37.60 kg/m2 10/27/2024 Encounters Encounter Location Date Provider Diagnosis [facility] [address] [place] [address] 10/27/2024 Good Berry History of adenomato us [...] again for allowing me to participate in uJne's care. I shall continue to keep you [...] Provider Name:Good Berry , 02/12/2025 11:00:00 AM, [address] [place] [address], [phone], Progress Notes * JUNE IBARRA MDOB: 1955 (69 yo F)Acc No.[id number]:10/27/2024 Progress Notes Patient:?CECY IBARRA Provider:?Good Berry MD :1955???Age:69 Y???Sex:Female D ate:10/27/2024 Address:[address] [place], [place] [id number] Pcp:Radu Welch MD Subjective: * Chief Complaints: [...] the right D&C Pituitary gland surgery [facility] * Hospitalization/Major Diagno stic Procedure:?No Hospitalization History. [...] Negative.?Miscellaneous:?Marital status: . 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 ???Nonsmoker; no sig. alcohol. * Medications:?TakingLisinopri [...] Procedure Codes:?3017F COLOR ECTAL CA SCREEN DOC GRS1674H TOBACCO NON-WUHAH8132 BP SCR NOT PRFRM REC REASON NOS [...] MD Date:? 025 Generated for Kun pelayo/Isaiah/Ambaritting on:?01/14/2025 09:42 AM EDT History and Physical Notes * [...]
== END 2025-01-14 09:25 | disposition home or self-care (01) ==
LOC: HO.HCS 08:56
PROVIDERS: PCP Internal Medicine; Visit Provider Internal Medicine
DX: I48.0 Paroxysmal atrial fibrillation (principal); I10 Essential (primary) hypertension; Z98.890 Other specified postprocedural states; I51.89 Other ill-defined heart diseases; I44.0 Atrioventricular block, first degree; G47.33 Obstructive sleep apnea (adult) (pediatric)
CPT/HCPCS: 93010; 99214; G2211

== ENCOUNTER → 2025-01-14 08:56 | Outpatient (BNVA) | payer MEDICARE, BC, OTHER, SELFPAY | PROVIDERS: PCP Internal Medicine; Visit Provider Internal Medicine | DX: I10 Essential (primary) hypertension (principal); I48.0 Paroxysmal atrial fibrillation; I51.89 Other ill-defined heart diseases; I44.0 Atrioventricular block, first degree; G47.33 Obstructive sleep apnea (adult) (pediatric); Z79.01 Long term (current) use of anticoagulants; Z99.89 Dependence on other enabling machines and devices; Z98.890 Other specified postprocedural states | CPT/HCPCS: 93005; 99212 ==

== ENCOUNTER 2025-02-12 10:41 | Day surgery (SDC) | payer MEDICARE, BC, OTHER, SELFPAY ==
--- OUTSIDE RECORDS SUMMARY | 2025-01-20 13:53 | XMS_ITS | Clinical Summary ---
Author Organization [facility] Address [address] [place] [address] Phone Care Team Providers Care Blood Tester Fowl Name Role Phone Radu Welch MD Primary Care Provider Allergies No known active allergies Medications lisinopril [...] also be consided for placement of a airfield defence guard. They can see their dentist or an [...] average glucose, using the formula of the A0Q-Jfjriwb Average Glucose study (ADAG), Diabetes Care, Vol.31,#8, [...] Recently Relevant to Health Maintenance Insurance [facility] Medicare [facility] Medicare [facility] Care Teams Blood Tester Fowl Relationship Specialty Start Date End Date Radu Welch MD [address] [place] PCP - General 10/10/20
--- OUTSIDE RECORDS SUMMARY | 2025-01-20 13:53 | XMS_ITS ---
Author Organization [facility] Address [address] [place] [address] Care Team Providers Care Campaign Fundraiser Name Role Phone Jaqueline No Primary Care Provider Morales FinkJayashree Unavailable [phone] Allergies Allergen (clinical drug ingredient) Drug/Non Drug Allergy documented on EMR Reaction Allergy Type Onset Date Status Penicillin Unknown Drug Allergy Active REASON FOR VISIT At Risk Footcare, Wart(s), Foot/leg pain right Medications Medication SIG (Take, Route, Frequency, Duration) Notes Start Date End Date Status Lidoderm 5 % 1 patch to intact skin remove after 12 hours Externally Once a day Not-Taking Keflex 500 MG 1 capsule Orally Twice a day for 10 day(s) Not-Taking Atenolol 25 MG 2 Orally Once a day Not-Taking Colcrys 0.6 MG 1 tablet Orally Once a day for 5 days 06/07/2016 Not-Taking Paxil Not-Taking Night Splint AFO - L1930 as directed 12/19/2015 Not-Taking Doxycycline Hyclate 100 MG 1 tablet Oral ly Once a day for 10 days Not-Taking hydroCHLOROthiazide Not-Taking Physical Therapy . . . 2-3x/week for 3- 4 weeks 12/19/2015 Not-Taking LORazepam 0.5 MG 1 tablet as needed Orally every 6 hrs Not-Taking Brimonidine Tartrate 0.15 % 1 drop into affected eye Ophthalmic every 8 hrs Active Extra Depth Orthopedic Shoes (1 Pair) with Customized Heat Molded Multidensity Innersoles (3 Pair) as directed Dx: NIDDM/Polyneuropathy (E11.42), Hammertoe Foot Deformity (M20.41,M20.42), Preulcerative Skin Lesion(s) (L85.1 Active Latanoprost 0.005 % Ophthalmic for 50 Active clonazePAM 0.5 MG Oral for 30 Active Cephalexin 500 MG 1 capsule Orally twice a day for 10 days 11/21/2023 Not-Taking Spironolactone 25 MG 1 tablet Orally for 30 day(s) Active PARoxetine HCl 40 MG 1 tablet in the morning Orally Once a day for 30 day(s) Active buPROPion HCl ER (SR) 100 MG 1 tablet in the morning Orally Once a day for 30 day(s) Active Compression Stockings 20-30mm Hg 1 pair wear daily for 30 days Active zzzCompression Stockings 20-30mm Hg . . . for . Active Vitamin D Active Simvastatin 20 MG Orally Ac tive eliquis 5 mg Active Lisinopril 40 MG as directed Orally Once a day Active cloNIDine HCl 0.1 MG as directed Orally Active Carvedilol 12.5 MG 1 tablet with food Orally Twice a day for 30 day(s) Active Claritin Active Eye Drops Active hydrALAZINE HCl 25 MG 1 tablet with food Orally Three times a day for 30 day(s) Active Social History Tobacco Use: Social History Observation Description Date Details (start date - stop date) Never Smoker NA - NA Tobacco use other than smoking: Question Answer Notes Are you an other tobacco user? No Tobacco Control (Standard) Question Answer Notes Tobacco use: Nonsmoker Vital Signs Height 5ft6in in 01/18/2025 Weight 235 lbs 01/18/2025 BMI 37.93 kg/m2 01/18/2025 Blood pressure systolic 120 mm Hg 01/19/20 25 Blood pressure diastolic 70 mm Hg 025 Procedures Procedure Date Ordered Date Performed Result Body Sit e 88805-Ptkz Destruction, 1-14 01/18/2025 N/A 06878-RYWA SKIN LESIONS, 2 TO 4 01/18/2025 N/A W5322-IWWJDIUE DYSTROPHIC NAILS ANY # 01/18/2025 N/A Encounters Encounter Location Date Provider Diagnosis [facility] [address] [place] [address] 01/18/2025 Jayashree Black Other viral warts B07.8 ; Right foot drop M21.371 ; Pain in left foot M79.672 ; Type 2 diabetes mellitus with diabetic polyneuropathy E11.42 and Neuritis M79.2 Assessments Encounter Date Diagnosis (ICD Code) Assessment Notes Treatment Notes Treatment Clinical Notes Section Notes 01/18/2025 Other viral warts (ICD-10 - B07.8) 01/18/2025 Right foot drop (ICD-10 - M21.371) 01/18/2025 Pain in left foot (ICD-10 - M79.672) 01/18/2025 Type 2 diabetes mellitus with diabetic polyneuropathy (ICD-10 - E11.42) 01/18/2025 Neuritis (ICD-10 - M79.2) Plan Of Treatment Pending Test Test Name Order Date 92421-Qbkw Destruction, 1-14 01/18/2025 98491-NDGG SKIN LESIONS, 2 TO 4 01/19/20 25 J8474-KHKBYXKF DYSTROPHIC NAILS ANY # Next Appt Details Follow Up: 3 Months, Reason: Provider Name:Jayashree Fink , 04/26/2025 08:30:00 AM, [address] [place] [address], [phone], Procedure Notes * Category Sub-Category Detail Notes Wart Treatment Procedure Verruca, as desc ribed in exam, were debrided to pin-point bleeding margins with sterile 15 surgical blade, silver nitrate chemocautery applied, recomm. immune-boosting meds such as zinc, recomm. follow up with topical chemosurgical agents, Pt CONT TO defer any other forms of tx - 93727 Keratoma Treatment Parring or Cutting o f [...] instrumentation by the physician of record - 82084 Nail Reduction Nail Reduction (-27) Trimming o [...] as stated and described in the exam (TA, T1, T2, T3, T4, T5, T6, T7, T8, T9, ), were debrided by the phisician of record to reduce/remove overall nail length and girth, by manual and electrical means with use of a nail nipper and/or dremel, to more viable healthy nail plate or bed tissue - G0127 Progress Notes * Alivia WILDEOB:03/1955 (69 yo F)Acc No.[id number]:01/18/2025 Progress Note Patient:?Trisha WILDE Provider:?Jayashree Fink DPM :1955???Age:69 Y???Sex:Female D ate:01/18/2025 Address:[address] [place] [address] Pcp:Jaqueline No Subjective: * Chief Complaints: * ???At Risk FootcareWart(s)Fo ot/leg pain right * HPI: ???At Risk footcare:?Pt States Last PCP Visit:?Date?12/22/2024 ???Wart:?Pt States Last PCP Visit:?Date:?12/22/2024 ???Foot Pain:?Nature:?drop foot, radiating, sharp, shooting right.?Location:?RIGHT.?Treatments:?Pain management ,AFO right.? * ROS:?General/Constitutional:?Nausea?denies.?Vomiting?denies.?Hunger Thirst?denies.?Loss appetite?denies.?Chills?denies.?Fatigue?denies.?Fever?denies.?Night Sweats?denies.?Unexplained weight loss?denies.?Unexplained [...] sinus surgery 06/25/22 * Hospitalization/Major Diagno stic Procedure:?[facility]- cov[facility]- 3 days sinus surgery complication uncontrollable nose bleed [facility]- Foot pain 08/23 * Family History:?Mother: dece ased, diagnosed with Other malignant neoplasm of unspecified site.?Father: .?Paternal Grand Mother: arthritis, diagnosed with Other malignant neoplasm of unspecified site, Unspecified essential hypertension, Unspecified cerebral artery occlusion with cerebral infarction.?Paternal aunt: diagnosed with Other malignant neoplasm of unspecified site.?Paternal uncle: diagnosed with Other malignant neoplasm of unspecified site.? * Social History:?Tobacco Use:?Tobacco use other than smoking?Are you an other tobacco user??No ?Tobacco Control (Standard)?Tobacco use:?Nonsmoker ???Miscellaneous:?Caffeine: yes, decaf tea, diet soda occassional. ?Children: yes, 1. ?Exercise: no. ?Marital status: . ?Occupation: retired- [employer]. * Medications:?TakingClaritin Eye Drops hydrALAZINE HCl 25 [...] Allergies:?Penicillinyes[All ergies Verified] Objective: * Vitals:?Ht: 5ft6in, Wt:235, BMI:37.93, Shoe size: 10W, BP:120/70mm Hg, BS: not taken, Ht-cm: 167.64 cm, Wt-k.6 kg. * ???Past Orders: ???Lab:HEMOGLOBIN A1C (GLYCO HEMOGLOBIN) (Order Date - 12/22/2024) (Collection Date & Time - 12/22/2024 08:17 AM) ? Value Reference Range ?HEMOGLOBIN A1C % (HH) 6.7 * Examination: ???Ophthalmology Referral: ?DIABETES EYE EXAM?Procedure Performed:?Yes ?Date of Exam Performed?09/30/2024 ?Findings of Diabetic Eye Exam:?no retinopathy?General Examination: ?GENERAL APPEARANCE:?Reveals a pleasant, alert, well nourished, well- developed, well hydrated individual, who demonstrates proper attention to hygiene/body habitus, and is in no acute distress, Pt serves as own historian for office visit today.?ORIENTED:?person, place, and time.?FOOT EXAM:?Lower Extremity Neurological Exam performed:?Yes ?Visual exam of foot performed:?Yes ?Date?01/18/2025 ?Sensory testing performed:?sensations diminished ?Sensory and motor testing performed:?sensations and strength diminished ?Pedal pulse taking performed:?2+ ?Footwear Evaluation?Footwear Evaluation performed:?Yes?Vascular: ?DP PULSES (B):?2/4, B/L.?PT PULSES (B):?2/4, B/L.?CAPILLARY FILL TIME:?immediate, all digits, B/L.?TEMPERTURE GRADIENT (C):?normal, warm to cool, proximal to distal, B/L, B/L.?EDEMA (C):?1/4, B/L.?Neurological: ?SENSORY:?Neurological exam demonstrates, reduced light touch sensation, reduced sharp/dull pin prick discrimination , reduced vibration sensation, 5.07 monofilament test performed at plantar aspects of 5 varied sites per foot shows sensation, absent, B/L, Pt relates, anesthesia, B/L,, shooting/radiating sensation, tingling, burning, hyperesthesia right groin distally to tips of?right toes.?Nails: ?NAILS are:?Elongated, overgrown, dystrophic ,, TA, T1, T2, T3, T4, T5, T6, T7, T8, T9.?Dermatologic: ?SKIN FINDINGS:?Skin exam reveals keratotic lesion(s) located at, SUB MTH (s), 5, B/L .?VERRUCA:?single , round, raised, flat-topped, petechial bleeding papulae(s), with cauliflower appearance and interrruption of skin lines, with pain to both direct and lateral compression, and size estimated at 2mm, plantar Midfoot, LEFT.?Orthopedic: ?MUSCLE STRENGTH:?Decreased with DF, Right, Drop foot, Right.?GAIT ABNORMALITY:?antalgic, unstable/unsteady relating occasional difficulty with balance.?DIGITAL DEFORMITIES:?Digital contracture, PIPJ, 2-5 B/L, incompl-reducible to push-up test, no over, nor underlapping, with evidence of no?skin irritation.?FOOTWEAR EVALUATION:?, good condition accommodative for present AFO.? Assessment: * Assessment: 1.?Other viral warts - B07.8 ???2.?Right foot drop - M21.371 (Primary)???Specify :Acute problem, Stable???3.?Pain in left foot - M79.672???4.?Type 2 diabetes mellitus with diabetic polyneuropathy - E11.42???5.?Neuritis - M79.2??? Plan: * Treatment: 2.?Type 2 diabetes mellitus with diabetic polyneuropathy?Procedure: 45244-ETHQ SKIN LESIONS, 2 TO 4 ?Procedure: P7643-HMOCJRIJ DYSTROPHIC NAILS ANY # * Procedures:?Keratoma Treatment:?Parring [...] instrumentation by the physician of record - 12456.?Wart Treatment:?Procedure?Verruca, as described in exam, were debrided to pin-point bleeding margins with sterile 15 surgical blade, silver nitrate chemocautery applied, recomm. immune-boosting meds such as zinc, recomm. follow up with topical chemosurgical agents, Pt CONT TO defer any other forms of tx - 89172.?Nail Reduction:?Nail Reduction?(-27) Trimming of all dystrophic nails - Due to the at risk nature of the patients medical condition as documented in the exam findings, performance of this nail treatment is medically necessary as its management by an unskilled/untrained nonprofessional would put this patients foot and overall health at risk. Therefore, the dystrophic nails, in locations as stated and described in the exam (TA, T1, T2, T3, T4, T5, T6, T7, T8, T9, ), were debrided by the phisician of record to reduce/remove overall nail length and girth, by manual and electrical means with use of a nail nipper and/or dremel, to more viable healthy nail plate or bed tissue - G0127.? * Procedure Codes:?69213 Wart Destruction, 1-14, Modifiers: XS G0127 TRIMMING DYSTROPHIC NAILS ANY #, Modifiers: XS 56470 TRIM SKIN LESIONS, 2 TO 4, Modifiers: XS 3044F HG A1C LEVEL LT 7.0% * Preventive Medicine:? ??Counseling:?Discussion:?-13: Office or other outpatient visit for the evaluation and management of an established patient, which required a medically appropriate history and/or examination and LOW level of DECISION MAKING for: 1 STABLE ACUTE UNCOMPLICATED PROBLEM, 2 OR MORE MINOR PROBLEMS, OR 1 STABLE CHRONIC PROBLEM, THAT POSE(S) A LOW RISK FOR MORBIDITY/MORTALITY. The visit on the day of the [...] have encouraged the patient to call the office.?BioMech.:?I discussed the Pts foot biomechanics AGAIN with them and how it relates to their problem. Pt and I reviewed potential causes again for her drop foot. Pt to continue with AFO and New shoes..? ??Screening/Special Tests:?Fall Risk?Assessment:?Performed ?Plan of Care:?Documented ?Type of fall plan of care:?Referral to exercise program for balance, strength or gait training ?Screening:?One fall with injury in the past year ?FALLS: Screening for Future Fall Risk?Have you had any falls with injury in the past year??Yes * Follow Up:?3 Months * Images: * Sign off status: Completed true * Provider:Waqar Fink DPM Date:?2024 Generated for Kun pelayo/Isaiah/Alok on:?01/20/2025 01:53 PM EDT History and Physical Notes * HPI (History of Present Illness) Category Sub-Category Detail Notes Category Not es Wart Pt States Last PCP Visit: Date:: 12/22/2024 At Risk footcare Pt States Last PCP Visit: Date: Foot Pain Nature: drop foot, radia ting, sharp, shooting right Location: RIGHT Treatments: Pain management ,AFO right Examination Category Sub-Category Detail Notes Category Not [...] papulae(s), with cauliflower appearance and interrruption of skin lines, with pain to both direct and lateral compression, and size estimated at 2mm, plantar Midfoot, LEFT Orthopedic GAIT ABNORMALITY: antalgic, unst able/unsteady relating occasional difficulty with balance FOOTWEAR EVALUATION: , good condition ac commodative for present AFO DIGITAL DEFORMITIES: Digital contracture , PIPJ, 2-5 B/L, incompl-reducible to push-up test, no over, nor underlapping, with evidence of no skin irritation MUSCLE STRENGTH: Decreased with DF, R ight, Drop foot, Right General Examination GENERAL APPEARANCE: Reveals a pleasant, alert, well nourished, well-developed, well hydrated individual, who demonstrates proper attention to hygiene/body habitus, and is in no acute distress, Pt serves as own historian for office visit today FOOT EXAM: Lower Extremity Neurological Exa m performed:: Yes Visual exam of foot performed:: Yes Date: 01/18/2025 Sensory testing performed:: sensations d iminished Sensory and motor testing performed:: se nsations and strength diminished Pedal pulse taking performed:: 2+ ORIENTED: person, place, and t claudio Footwear Evaluation Footwear Evaluation performe d:: Yes Ophthalmology Referral DIABETES EYE EXAM Procedure Perform ed:: Yes ?Date of Exam Performed: 09/30/2024 Findings of Diabetic Eye Exam:: no retin opathy Vascular DP PULSES (B): 2/4, B/L PT PULSES (B): 2/4, B/L CAPILLARY FILL TIME: immediate, all digi ts, B/L TEMPERTURE GRADIENT (C): normal, warm to cool, proximal to distal, B/L, B/L EDEMA (C): 1/4, B/L Nails NAILS are: Elongated, overg rown, dystrophic ,, TA, T1, T2, T3, T4, T5, T6, T7, T8, T9 Abscess/infected nail INSPECTION
--- OUTSIDE RECORDS SUMMARY | 2025-01-20 13:53 | XMS_ITS | Patient Health Record ---
Author Organization [facility] Address [address] [place] [address] Care Team Providers Care Racecourse Barrier Attendant Name Role Phone Jaqueline No Primary Care Provider Jayashree Coleman Unavailable [phone] Allergies Allergen (clinical drug ingredient) Drug/Non Drug Allergy documented on EMR Reaction Allergy Type Onset Date Status Penicillin Unknown Drug Allergy Active Results Component Value Reference Range Notes HEMOGLOBIN A1C (GLYCOHEMOGLO BIN) Reviewed date:01/18/2025 08:17:52 AM Interpretation: Performing Lab: Notes/Report: HEMOGLOBIN A1C % (HH) 6.7 HEMOGLOBIN A1C (GLYCOHEMOGLO BIN) Reviewed date:03/16/2024 09:34:31 AM Interpretation: Performing Lab: Notes/Report: HEMOGLOBIN A1C % (HH) 7.1 Reason For Referral No Information Medications Medication SIG (Take, Route, Frequency, Duration) Notes Start Date End Date Status Brimonidine Tartrate 0.15 % 1 drop into affected eye Ophthalmic every 8 hrs Active Extra Depth Orthopedic Shoes (1 Pair) with Customized Heat Molded Multidensity Innersoles (3 Pair) as directed Dx: NIDDM/Polyneuropathy (E11.42), Hammertoe Foot Deformity (M20.41,M20.42), Preulcerative Skin Lesion(s) (L85.1 Active Latanoprost 0.005 % Ophthalmic for 50 Active clonazePAM 0.5 MG Oral for 30 Active Night Splint AFO - L1930 as directed 12/19/2015 Not-Taking Cephalexin 500 MG 1 capsule Orally twice a day for 10 days 11/21/2023 Not-Taking Doxycycline Hyclate 100 MG 1 tablet Oral ly Once a day for 10 days Not-Taking buPROPion HCl ER (SR) 100 MG 1 tablet in the morning Orally Once a day for 30 day(s) Active Compression Stockings 20-30mm Hg 1 pair wear daily for 30 days Active zzzCompression Stockings 20-30mm Hg . . . for . Active Vitamin D Active Lidoderm 5 % 1 patch to intact skin remove after 12 hours Externally Once a day Not-Taking Simvastatin 20 MG Orally Ac tive Keflex 500 MG 1 capsule Orally Twice a day for 10 day(s) Not-Taking Carvedilol 12.5 MG 1 tablet with food Orally Twice a day for 30 day(s) Active Atenolol 25 MG 2 Orally Once a day Not-Taking eliquis 5 mg Active Colcrys 0.6 MG 1 tablet Orally Once a day for 5 days 06/07/2016 Not-Taking Spironolactone 25 MG 1 tablet Orally for 30 day(s) Active PARoxetine HCl 40 MG 1 tablet in the morning Orally Once a day for 30 day(s) Active Lisinopril 40 MG as directed Orally Once a day Active cloNIDine HCl 0.1 MG as directed Orally Active Eye Drops Active hydroCHLOROthiazide Not-Taking hydrALAZINE HCl 25 MG 1 tablet with food Orally Three times a day for 30 day(s) Active Paxil Not-Taking Physical Therapy . . . 2-3x/week for 3- 4 weeks 12/19/2015 Not-Taking LORazepam 0.5 MG 1 tablet as needed Orally every 6 hrs Not-Taking Claritin Active Immunizations Vaccine Route Administration Date Status Comme nts Influenza Unknown 04/18/2020 Refused Influenza Unknown 12/05/2023 Refused Social History Tobacco Use: Social History Observation Description Date Details (start date - stop date) Never Smoker NA - NA Alcohol Screen Question Answer Notes Did you [...] (Standard) Question Answer Notes Tobacco use: Nonsmoker Problems Problem Type SNOMED Code ICD Code Onset Dates Problem Status W/U Status Risk Notes Problem Acquired hammer toe of right foot (2260699624996401 ) Other hammer toe(s) (acquired), right foot (M20.41) Active confirmed Problem Acquired hammer toe of left foot (9063953815912723 ) Other hammer toe(s) (acquired), left foot (M20.42) Active confirmed Problem Localized, primary osteoarthritis of the ankle and/or foot (704811479) Primary osteoarthritis, left ankle and foot (M19.072) Active confirmed Problem Polyneuropathy due to type 2 diabetes mellitus (776121749) Type 2 diabetes mellitus with diabetic polyneuropathy (E11.42) Active confirmed Problem Contracture of joint of left ankle (100067379989386) Equinus contracture of left ankle (M24.572) Active confirmed Problem Contracture of joint of right ankle (295655525588145) Equinus contracture of right ankle (M24.571) Active confirmed Problem Essential hypertension (00787329) Essential hypertension (I10) Active confirmed Vital Signs Blood pressure diastolic 70 mm Hg 01/18/2025 Height 5ft6in in 01/18/2025 Blood pressure systolic 120 mm Hg 01/18/2025 Weight 235 lbs 01/18/2025 BMI 37.93 kg/m2 01/18/2025 Procedures Procedure Date Ordered Date Performed Result Body Sit e 85978-Tnjo Destruction, 1-14 03/16/2024 N/A 29445-Vaxzdjbp Plate 03/16/2024 N/A 10265-GANJ SKIN LESIONS, 2 TO 4 03/16/2024 N/A K7123-DNIZEFXY DYSTROPHIC NAILS ANY # 03/16/2024 N/A 14725-Sbqx Destruction, 1-14 06/22/2024 N/A 83378-DIPT SKIN LESIONS, 2 TO 4 06/22/2024 N/A U4446-DTQUXMUB DYSTROPHIC NAILS ANY # 06/22/2024 N/A 61869-Bdnz Destruction, 1-14 09/14/2024 N/A 28341-HIAP SKIN LESIONS, 2 TO 4 09/14/2024 N/A L8850-UGGMDHOH DYSTROPHIC NAILS ANY # 09/14/2024 N/A 60477-Nekf Destruction, 1-14 01/18/2025 N/A 38139-ORJO SKIN LESIONS, 2 TO 4 01/18/2025 N/A K5488-GCEUNFLZ DYSTROPHIC NAILS ANY # 01/18/2025 N/A Encounters Encounter Location Date Provider Diagnosis [address] [address] 03/16/2024 Jayashree Fink Other viral warts B07.8 ; Pain in left foot M79.672 ; Type 2 diabetes mellitus with diabetic polyneuropathy E11.42 ; Other hammer toe(s) (acquired), left foot M20.42 ; Other hammer toe(s) (acquired), right foot M20.41 and Ingrown nail L60.[address] [address] 06/22/2024 Jayashreelibertad Fink Other viral warts B07.8 ; Other hammer toe(s) (acquired), right foot M20.41 ; Pain in left foot M79.672 ; Type 2 diabetes mellitus with diabetic polyneuropathy E11.42 ; Other hammer toe(s) (acquired), left foot M20.42 and Ingrown nail L60.[address] [address] 09/14/2024 Jayashree Fink Other viral warts B07.8 ; Right foot drop M21.371 ; Pain in left foot M79.672 ; Type 2 diabetes mellitus with diabetic polyneuropathy E11.42 ; Injury of right peroneal nerve, initial encounter S84.11XA and Neuritis M79.[address] [address] 01/18/2025 Jayashree Fink Other viral warts B07.8 ; Right foot drop M21.371 ; Pain in left foot M79.672 ; Type 2 diabetes mellitus with diabetic polyneuropathy E11.42 and Neuritis M79.[address] [address] 01/24/2024 Jayashree Fink [address] [address] 09/14/2024 Jayashree Fink [address] [address] 11/18/2024 Jayashree Fink [facility] [address] [place] [address] 12/11/2024 Jayashree Fink [facility] Encounter Date Diagnosis (ICD Code) Assessment Notes [...] 09/14/2024 Right foot drop (ICD-10 - M21.371) 01/18/2025 Other viral warts (ICD-10 - B07.8) 01/18/2025 Right foot drop (ICD-10 - M21.371) 01/18/2025 Pain in left foot (ICD-10 - M79.672) 06/22/2024 Pain in left foot (ICD-10 - M79.672) 09/14/2024 Pain in left foot (ICD-10 - M79.672) 03/16/2024 Pain in left foot (ICD-10 - M79.672) 03/16/2024 Type 2 diabetes mellitus with diabetic polyneuropathy (ICD-10 - E11.42) 09/14/2024 Type 2 diabetes mellitus with diabetic polyneuropathy (ICD-10 - E11.42) 06/22/2024 Type 2 diabetes mellitus with diabetic polyneuropathy (ICD-10 - E11.42) 01/18/2025 Type 2 diabetes mellitus with diabetic polyneuropathy (ICD-10 - E11.42) 01/18/2025 Neuritis (ICD-10 - M79.2) 09/14/2024 Injury of right peroneal nerve, initial [...] Treatment Pending Test Test Name Order Date 37859-Nhlw Destruction, 1-14 07/20/2019 79868-Vfso Destruction, -14 01/18/2020 67766-Umgg Destruction, -14 04/18/2020 98009-Otfi Destruction, -14 07/07/2020 31994-Mbis Destruction, -14 10/13/2020 43456-Zrwt Destruction, -14 01/12/2021 42280-Jbsv Destruction, -14 05/15/2021 43055-Kzef Destruction, -14 08/31/2021 81441-Tqwa Destruction, -14 11/28/2021 37062-Fztx Destruction, -14 03/29/2022 03657-Cpug Destruction, -14 07/02/2022 75778-Gudc Destruction, -14 10/11/2022 65642-Uosg Destruction, -14 04/25/2023 57669-Imvk Destruction, -14 08/05/2023 42181-Atci Destruction, -14 01/17/2023 54820-Ijyu Destruction, -14 12/23/2023 87601-Jflz Destruction, -14 03/16/2024 14936-Hchf Destruction, -14 06/22/2024 94432-Vwqe Destruction, -14 09/14/2024 73381-Cxxo Destruction, -14 01/18/2025 98927-Tkpdxjyu Plate 03/16/2024 20130-Unzfesnr Plate 08/05/2023 56195-Fjutxnfn Plate 01/17/2023 96934-Vhjqlgzj Plate 03/29/2022 36192-Kfkpikem Plate 11/28/2021 33798-Kguilrvg Plate 08/31/2021 20082-Cfbxltzc Plate 05/15/2021 47716-Bazmwopw Plate 01/12/2021 06031-Tnxnybus Plate 04/18/2020 92059-Onelbkue Plate Each Additional 22559-ICC 11/21/2023 48555- Debride <25 sq cm 12/23/2023 97041-BNRXZBN SKIN/TISSUE 12/05/2023 72360-KZJB SKIN LESIONS, 2 TO 4 12/05/19 72403-IYSP SKIN LESIONS, 2 TO 4 08/05/20 63839-ZJPG SKIN LESIONS, 2 TO 4 01/18/20 07271-WZUV SKIN LESIONS, 2 TO 4 10/11/19 80886-LNKI SKIN LESIONS, 2 TO 4 07/02/20 11869-FUEI SKIN LESIONS, 2 TO 4 12/23/19 54840-FXGD SKIN LESIONS, 2 TO 4 04/25/20 63746-FVPM SKIN LESIONS, 2 TO 4 03/16/20 20816-BTNT SKIN LESIONS, 2 TO 4 01/19/20 52205-SURI SKIN LESIONS, 2 TO 4 09/14/20 41666-FWPW SKIN LESIONS, 2 TO 4 06/22/20 45861-NTIY SKIN LESIONS, 2 TO 4 04/18/20 10853-WSET SKIN LESIONS, 2 TO 4 01/18/20 30443-MKUI SKIN LESIONS, 2 TO 4 07/20/20 19 70788-IQJO SKIN LESIONS, 2 TO 4 07/07/20 27390-WEHJ SKIN LESIONS, 2 TO 4 10/13/19 96936-RYRP SKIN LESIONS, 2 TO 4 01/13/20 09852-UAUX SKIN LESIONS, 2 TO 4 05/15/20 28057-SLVC SKIN LESIONS, 2 TO 4 08/31/20 28559-CLAS SKIN LESIONS, 2 TO 4 11/29/19 09583-DKBY SKIN LESIONS, 2 TO 4 03/29/20 E6934-LEOZTJVF DYSTROPHIC NAILS ANY # A4405-DBLIDABW DYSTROPHIC NAILS ANY # O0870-IZYXMDXM DYSTROPHIC NAILS ANY # A8893-VSXMLKFW DYSTROPHIC NAILS ANY # Z7402-JUUDYWET DYSTROPHIC NAILS ANY # B1017-XKGPMJZB DYSTROPHIC NAILS ANY # P5607-BYGQHOLD DYSTROPHIC NAILS ANY # A9749-ZKTUKGQQ DYSTROPHIC NAILS ANY # N7206-YJFPYVOO DYSTROPHIC NAILS ANY # N5244-ITCUANMJ DYSTROPHIC NAILS ANY # Q8942-LHALKWWW DYSTROPHIC NAILS ANY # Z0305-OGSQWXNT DYSTROPHIC NAILS ANY # J4948-QWBPEUTU DYSTROPHIC NAILS ANY # E3252-IHRRJRJC DYSTROPHIC NAILS ANY # T4826-ZHLCYNWF DYSTROPHIC NAILS ANY # K2807-GVCMJKHD DYSTROPHIC NAILS ANY # Z7884-VWGERCCO DYSTROPHIC NAILS ANY # N1995-YPBPUOFF DYSTROPHIC NAILS ANY # L9517-GPMQKHSZ DYSTROPHIC NAILS ANY # W6982-FEGTOVOF DYSTROPHIC NAILS ANY # O3418-WBVPMUXE DYSTROPHIC NAILS ANY # Next Appt Details Provider Name:Jayashree Fink , 04/26/2025 08:30:00 AM, [address] [facility], [place], [address], Insurance Providers Payer Name Payer Address Payer Phone Subscriber Number Group Number Insured Name Patient Relationship to Insured Coverage Start Date Coverage End Date Medicare National [employer] [address] [place] [address] [id number] Josefina Wilde Self - patient is the insured [facility] [address] [place] [address] [id number] Josefina Wilde Self - patient is the insured [employer] [address] [place] [address] [phone] [id number] MAINE WILDE Spouse - patient is the spouse of the insured Medical (General) History Medical History History ICD Code hypertension depression Arthritis Anxiety disorder Glaucoma Neuropathy Chicken pox Back,Hip,and Knee pain Carpal tunnel NIDDM type II diabetes Surgical History Surgery Date(Month/Year) hysterectomy 10/30/13 carpal tunnel surgery tumor removal appendectomy Pituitary sinus surgery 06/25/22 Hospitalization History Reason Date(Month/Year) ER [facility] [place] [place]- Foot pain 08/23 [facility]- 3 days sinus surgery complication uncontrollable nose bleed 2021 [facility] [place] [place]- covid 09/2021
--- OUTSIDE RECORDS SUMMARY | 2025-01-20 13:54 | XMS_ITS | Patient Health Record ---
Author Organization [facility] Address [address] [place] [address] Care Team Providers Care Ceo Name Role Phone Radu Welch MD Primary Care Provider Unavaila Good Will Unavailable [phone] Allergies Allergen (clinical drug ingredient) Drug/Non Drug [...] Problem Status W/U Status Risk Notes Problem 046389083 Encounter for screening for malignant neoplasm of colon (Z12.11) Active confirmed Problem 495711936 History of adenomatous polyp of colon (Z86.010) Active confirmed Problem 656692986 Bloating (R14.0) Active confirmed Problem Constipation (03391338) Constipation (K59.00) Active confirmed Problem 905854304 Flatulence (R14.3) Active confirmed Problem Long-term current use of anticoagulant (918049131) Anticoagulant long-term use (Z79.01) Active confirmed Problem 364521489436404 Pre-procedural examination (Z01.818) Active confirmed Vital Signs Blood pressure diastolic 00 mm Hg 10/27/2024 Height 66 in 10/27/2024 Blood pressure systolic 00 mm Hg 10/27/2024 Weight 233 lbs 10/27/2024 BMI 37.60 kg/m2 10/27/2024 Encounters Encounter Location Date Provider Diagnosis [facility] [address] [place] [address] 10/27/2024 Good Berry History of adenomato us [...] Provider Name:Good Berry , 02/12/2025 11:00:00 AM, [address] [place] [address] , [place], [place], [id number], Insurance Providers Payer Name Payer Address Payer Phone Subscriber Number Group Number Insured Name Patient Relationship to Insured Coverage Start Date Coverage End Date MEDICARE OF [place] [address] [place] [address] [phone] [id number] JUNE IBARRA Self - patient is the insured [facility] [address] [place], [place] [id number] [phone] [id number] JUNE IBARRA Self - patient is the insured [employer] [address] [place] [address] [phone] [id number] JUNE IBARRA Self - patient is the insured Medical (General) History Medical History History ICD Code Colonoscopy 03-17-2007 and in 11/2012 with the removal of a tubular adenoma Denies AR,CVA,Lung disease,renal disease HTN Hyperlipidemia GERD--normal upper endoscopy in 11/2012 IBS---normal duodenal and gastric biopsi es--no H.pylori--EGD in 11/2012 Anxiety/Depression Uterine fibroid Sleep apnea-uses a CPAP machine Glaucoma Diet-controlled diabetes Drop foot 07/2024 Afib-Dr. Morel Negative colonoscopy in 09/2018 Depression Surgical History Surgery Date(Month/Year) Carpal tunnel on the right D&C Pituitary gland surgery [facility] ESC[facility]
--- OUTSIDE RECORDS SUMMARY | 2025-01-20 13:54 | XMS_ITS ---
Author Organization [facility] Address [address] [place] [address] Care Team Providers Care Machine Shop Lead Man Name Role Phone Jaqueline No Primary Care Provider Jayashree Coleman [phone] Encounters Encounter Location Date Provider Diagnosis [address] [address] 12/17/2024 Jaysahree Fink Plan Of Treatment Next Appt Details Provider Name:Jayashree Fink , 04/26/2025 08:30:00 AM, [address] [place], [address], Progress Notes * Alivia WILDEOB:03/1955 (69 yo F)Acc No.[id number]:12/17/2024 Progress Note Patient:?Trisha WILDE Provider:?Jayashree Fink DPM :1955???Age:69 Y???Sex:Female D ate:12/17/2024 Address:[address] [place] [address], Jaun gregglibertad [id number] Pcp:Jaqueline No Subjective: * Chief Complaints: * ??? * Medical History:? Objective: * Vitals:? Assessment: Plan: * Treatment: * Images: * The named appointment provid er may or may not be the originator of this progress note, and it is not deemed complete until electronically signed by the appointment provider. Sign off status: Pending * Provider:?Jayashree Fink DPM Date:?2024 Generated for Kun pelayo/Isaiah/Alok on:?01/20/2025 01:54 PM EDT
--- OUTSIDE RECORDS SUMMARY | 2025-01-20 13:54 | XMS_ITS | Patient Health Record ---
Author Organization [facility] Address [address] [place] [address] Care Team Providers Care Video Production Intern Name Role Phone TONY GARCES M.D. Primary Care Provider Unavaila Felicia Pool Unavailable [phone] Reason For Referral No Information Medications Medication SIG (Take, Route, Fr equency, Duration) Notes Start Date End Date Status Simvastatin 20MG 1 ORAL daily for -3 [facility] 09/09/2012 Active Spironolactone 25MG 1 ORAL daily for -3 [facility] 07/08/2013 Active Terazol 7 0.4 % 1 application at bed time Vaginal Once a day for 7 day(s) 05/10/2015 Active LORazepam 0.5 MG 1 tablet as needed O rally Twice a day Active Atenolol 50MG 1 ORAL DAILY for -3 [facility] 09/09/2012 Active cloNIDine HCl 0.1MG 1 ORAL twice daily for -3 [facility] 08/30 Active Lisinopril 40MG 1 ORAL daily for -3 [facility] 09/09/2012 Active PARoxetine HCl 40MG 1 ORAL daily for -3 [facility] 09/09/2012 Active Problems Problem Type SNOMED Code ICD Code Onset Dates Problem Status W/U Status Risk Notes Problem Hyperlipidemia (97488684) Other and unspecified hyperlipidemia (272.4) Active confirmed Major Problem Depressive disorder (99206105) Depressive disorder, not elsewhere classified (311) Active confirmed Major Problem Glaucoma (29246640) Unspecified glaucoma (365.9) Active confirmed Diag Problem Benign essential hypertension (9204237) Essential hypertension, benign (401.1) Active confirmed Major Problem Female genital organ symptoms (455266859) Other specified symptom associated with female genital organs (625.8) Active confirmed Major Problem Postmenopausal bleeding (78910194) Postmenopausal bleeding (627.1) Active confirmed Diag Problem Menopausal symptom (97304767) Symptomatic menopausal or female climacteric states (627.2) Active confirmed Major Problem Left lower quadrant pain (576064229) Abdominal pain, left lower quadrant (789.04) Active confirmed Diag Problem Gynecological examination normal (699703449908159) Routine gynecological examination (V72.31) Active confirmed Problem Screening for malignant neoplasm of colon (160745898) Special screening for malignant neoplasms, colon (V76.51) Active confirmed Major Plan Of Treatment Pending Test Test Name Order Date Bone Density 10/19/2016 Urine Culture and Sensitivity 05/10/2015 Insurance Providers Payer Name Payer Address Payer Phone Subscriber Number Group Number Insured Name Patient Relationship to Insured Coverage Start Date Coverage End Date [employer] [place] [address] [place] [address] [phone] [id number] JUNE ESTEVES Self - patient is the insured [facility] [facility] [address] [place], [place] [id number] JUNE ESTEVES Self - patient is the [...] TONSILLECTOMY APPENDECTOMY PITUITARY GLAND, [facility] Hospitalization History Reason Date(Month/Year) CHILD SEE SURGICAL HX
--- OUTSIDE RECORDS SUMMARY | 2025-01-20 13:54 | XMS_ITS ---
Author Organization [facility] Address [address] [place] [address] Care Team Providers Care Loading And Unloading Supervisor Name Role Phone Radu Welch MD Primary Care Provider Unavaila ble Good Berry Unavailable [phone] Allergies Allergen (clinical drug ingredient) Drug/Non Drug [...] Status W/U Status Risk Notes Problem Constipation (40359837) Constipation (K59.00) Active confirmed Problem Long-term current use of anticoagulant (042752648) Anticoagulant long-term use (Z79.01) Active confirmed Vital Signs Blood pressure systolic 00 mm Hg 10/27/19 25 Blood pressure diastolic 00 mm Hg 025 Height 66 in 10/27/2024 Weight 233 lbs 10/27/2024 BMI 37.60 kg/m2 10/27/2024 Encounters Encounter Location Date Provider Diagnosis [facility] [address] [place] [address] 10/27/2024 Good Berry History of adenomato us [...] Provider Name:Good Berry , 02/12/2025 11:00:00 AM, [address] [place] [address], [phone], Progress Notes * JUNE IBARRA MDOB: 1955 (69 yo F)Acc No.[id number]:10/27/2024 Progress Notes Patient:?CECY IBARRA Provider:?Good Berry MD :1955???Age:69 Y???Sex:Female D ate:10/27/2024 Address:[address] [place], [place] [id number] Pcp:Radu Welch MD Subjective: * Chief Complaints: [...] the right D&C Pituitary gland surgery Appy [facility] * Hospitalization/Major Diagno stic Procedure:?No [...] Negative.?Miscellaneous:?Marital status: . 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 ???Nonsmoker; no sig. alcohol. * Medications:?TakingLisinopri [...] again for allowing me to participate in Jnue's care. I shall continue to keep you [...] Procedure Codes:?3017F COLOR ECTAL CA SCREEN DOC KLD0306X TOBACCO NON-ZQGYX6016 BP SCR NOT PRFRM REC REASON NOS [...] MD Date:? 025 Generated for Kun pelayo/Isaiah/Ambaritting on:?01/20/2025 01:53 PM EDT History and Physical [...]
--- OUTSIDE RECORDS SUMMARY | 2025-01-20 13:54 | XMS_ITS ---
Author Organization [facility] Address [address] [place] [address] Care Team Providers Care Wood Cut Engraver Name Role Phone Jaqueline No Primary Care Provider Jayashree Coleman [phone] REASON FOR VISIT diab patient Encounters Encounter Location Date Provider Diagnosis [address] [address] 12/11/2024 Jayashree Fink Plan Of Treatment Next Appt Details Provider Name:Jayashree Wendie Fink , 04/26/2025 08:30:00 AM, [address] [place], [address], Progress Notes * Alivia WILDEOB:03/1955 (69 yo F)Acc No.[id number]:12/11/2024 Patient:?Trisha WILDE :1955???Age:69 Y???Sex:Female Address:[address] [place] [address], [place] [address] * true * Date:? Generated for Sandrinei gita/Isaiah/eTransmitting on:?01/20/2025 01:54 PM EDT
[2025-02-10 14:55] VITALS: BMI 37.6
--- NOTE | 2025-02-11 09:41 | HO.ANESPROP2 ---
Documented by User: Katalina Chavarrai NP 02/11/25 09:44 HPI - Anesthesia Eval Consult details Narrative: 69yo F for Colonoscopy Eliquis for afib. [place] [facility] [place] [facility]. Stable at 12/2024 office visit [facility] Active Problems Active Problems: All Active Problems CELIA (obstructive sleep apnea) (Acute) Arthritis of left knee (Acute) Lumbar degenerative disc disease (Acute) Lumbosacral radiculopathy at L5 (Acute) Right leg numbness (Acute) Right leg pain (Acute) Right foot drop (Acute) Arthritis of right hip (Acute) Hematuria (Acute) First degree heart block (Acute) Preoperative cardiovascular examination (Acute) Abnormal nuclear stress test (Acute) Atherosclerotic cardiovascular disease (Acute) Essential hypertension (Acute) Hyperlipidemia (Acute) Asthma (Acute) Type 2 diabetes mellitus without complications (Acute) Diastolic dysfunction (Acute) Panic disorder (Acute) Generalized anxiety disorder (Acute) Dysthymia (Acute) S/P cardiac cath (Acute) PAF (paroxysmal atrial fibrillation) (Acute) Prediabetes (Acute) HTN (hypertension) (Acute) Past Medical History Medical History Type 2 diabetes mellitus without complications Diverticulosis of large intestine without perforation or abscess without bleeding 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 Low back pain, unspecified Pain in left shoulder Intercostal pain Major depressive disorder, recurrent, unspecified Unilateral primary osteoarthritis, left knee CELIA on CPAP Diastolic dysfunction Panic disorder Generalized anxiety disorder Dysthymia PAF (paroxysmal atrial fibrillation) New onset atrial fibrillation Prediabetes HTN (hypertension) Family History Family History Mother Bladder cancer Surgical History Surgical History History of carpal tunnel release History of pituitary surgery H/O colonoscopy History of nasal surgery S/P cardiac cath History of hysterectomy Social History Social History Housing: House Are you a primary healthcare account manager to a significant other at home: No Do you presently have visiting nurse or other home services: No Alcohol intake: never Comment: instructed to ring dc for assistance. Patient Tobacco Use Status: Former Tobacco user Tobacco use type: Cigarette Smoked in Last 30 Days: No Use of substances other than those prescribed or required for medical reasons: No Have you been hit, kicked, punched, or otherwise hurt by someone within the past year? If so, by whom?: No Are you DNR?: No Advance Directives: Yes Advance Directives Information Provided: Yes Advance Directives on File: Yes Advance Directives Date on File: 07/03/22 Patient : No : No Poor oral hygiene: No service: No Current occupational status: retired Cognitive needs: Yes (cane) Hearing needs: Yes (b/l hearing aids) Vision needs: Yes (rx glasses) Meds Allergies Allergy/AdvReac Type Severity Reaction Status Date / Time nifedipine [NIFEDIPINE] Allergy Unknown UNKNOWN- Verified 02/12/25 11:27 DOES NOT REMEMBER Home Medications ?Medication ?Instructions ?Recorded ?Confirmed ?Last Taken ?Type brimonidine 0.15 % eye drops 1 drp ophthalmic (eye) BEDTIME 10/09/21 02/12/25 10/08/21 History cholecalciferol (vitamin D3) 25 25 mcg PO BEDTIME 10/09/21 02/12/25 10/08/21 History mcg (1,000 unit) tablet lisinopril 40 mg tablet 40 mg PO BEDTIME 11/07/21 02/12/25 02/11/25 History simvastatin 20 mg tablet 20 mg PO BEDTIME 11/07/21 02/12/25 Unknown History latanoprost 0.005 % eye drops 1 drp ophthalmic (eye) DAILY 08/28/22 02/12/25 Unknown History brimonidine 0.2 % eye drops 1 drp ophthalmic (eye) DAILY 06/03/24 02/12/25 Unknown History Exam Height,Weight and Vital Signs: Height 5 ft 6 in Weight 105.687 kg Pertinent Lab Results Pertinent Lab Results: Laboratory Tests 12/18/24 11:00 WBC 8.8 Hgb 13.4 Hct 41.1 Plt Count 248 Sodium 142 Potassium 4.0 Chloride 109 H Carbon Dioxide 27 BUN 14 Creatinine 0.62 Narrative Narrative: EKG 12/2024 EKG Details: EKG with underlying sinus rhythm at 64/Min; sinus arrhythmias; rightward axis; left posterior fascicular block; slight [place] prolongation to 246 milliseconds; normal corrected QT. 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 Low back pain, unspecified Pain in left shoulder Intercostal pain Major depressive disorder, recurrent, unspecified Unilateral primary osteoarthritis, left knee CELIA on CPAP Diastolic dysfunction Panic disorder Generalized anxiety disorder Dysthymia PAF (paroxysmal atrial fibrillation) New onset atrial fibrillation Prediabetes HTN (hypertension) Family History Family History Mother Bladder cancer Surgical History Surgical History History of carpal tunnel release History of pituitary surgery H/O colonoscopy History of nasal surgery S/P cardiac cath History of hysterectomy History of Problems with Anesthesia: No Social History Social History Housing: House Are you a primary healthcare account manager to a significant other at home: No Do you presently have visiting nurse or other home services: No Alcohol intake: never Comment: instructed to ring dc for assistance. Patient Tobacco Use Status: Former Tobacco user Tobacco use type: Cigarette Smoked in Last 30 Days: No Use of substances other than those prescribed or required for medical reasons: No Have you been hit, kicked, punched, or otherwise hurt by someone within the past year? If so, by whom?: No Are you DNR?: No Advance Directives: Yes Advance Directives Information Provided: Yes Advance Directives on File: Yes Advance Directives Date on File: 07/03/22 Patient : No : No Poor oral hygiene: No service: No Current occupational status: retired Cognitive needs: Yes (cane) Hearing needs: Yes (b/l hearing aids) Vision needs: Yes (rx glasses) Meds Allergies Allergy/AdvReac Type Severity Reaction Status Date / Time nifedipine [NIFEDIPINE] Allergy Unknown UNKNOWN- Verified 02/12/25 11:27 DOES NOT REMEMBER Home Medications ?Medication ?Instructions ?Recorded ?Confirmed ?Last Taken ?Type brimonidine 0.15 % eye drops 1 drp ophthalmic (eye) BEDTIME 10/09/21 02/12/25 10/08/21 History cholecalciferol (vitamin D3) 25 25 mcg PO BEDTIME 10/09/21 02/12/25 10/08/21 History mcg (1,000 unit) tablet lisinopril 40 mg tablet 40 mg PO BEDTIME 11/07/21 02/12/25 02/11/25 History simvastatin 20 mg tablet 20 mg PO BEDTIME 11/07/21 02/12/25 Unknown History latanoprost 0.005 % eye drops 1 drp ophthalmic (eye) DAILY 08/28/22 02/12/25 Unknown History brimonidine 0.2 % eye drops 1 drp ophthalmic (eye) DAILY 06/03/24 02/12/25 Unknown History Exam Airway Mallampati Class: III (full neck) TM Dist: >3cm Neck ROM: Full Loose/Missing/Broken Teeth: No Heart: RRR Lungs: CTA Assessment and Plan Assessment Anesthesia Assessment: Anesthesia Plan Discussed Final Anesthetic Review History of Problems with Anesthesia: No NPO: Yes ASA Class: III Final Preanesthetic Review: Meds/Allgs Chart Reviewed, Consent Obtained/Reviewed and Anes Risks/Benef Reviewed Patient Risk: Intermediate Procedure Risk: Low Anesthetic Plan Anesthetic Plan: MAC: Disposition: Standard PACU
[2025-02-12 11:12] VITALS: BMI 37.4
[2025-02-12 11:24] LABS: Glucose, Whole Blood 127 mg/dL (60-115)
[2025-02-12 11:25] VITALS: BP 169/77; PULSE 70; RESP 16; TEMP 37.5; O2SAT 94
[2025-02-12] MEDS: Lactated Ringers 1,000 ML 100 ML IVCONT (12:29)
[2025-02-12 13:52] VITALS: BP 152/71; PULSE 71; RESP 18; TEMP 36.1; O2SAT 98
--- NOTE | 2025-02-12 13:56 | PM.OP ---
Brief Operative Note Date of Service: 02/12/25 Pre-op diagnosis: Screening Post-op diagnosis: other (Colon polyp) Procedure: Colonoscopy to the cecum and TI with cold snare polypectomy Surgeon: Good Berry MD Anesthesia: MAC Was an Wind Tunnel Technician used for this Procedure?: No Estimated blood loss (mL): 2.0 Pathology: other (A. Polyp at 60cm) Condition: stable Disposition: PACU
[2025-02-12 14:06] VITALS: BP 146/76; PULSE 72; RESP 16; O2SAT 95
--- NOTE | 2025-02-12 14:09 | OP_ITS ---
DATE OF SERVICE: 02/12/2025 SURGEON: Good Berry MD INDICATIONS: The patient presents for followup of colorectal cancer screening and personal history of tubular adenoma of the colon. Full consent obtained from her for this, including risks of bleeding and perforation. PREOPERATIVE DIAGNOSIS: POSTOPERATIVE DIAGNOSIS: PROCEDURE PERFORMED: Colonoscopy to the cecum and terminal ileum with cold snare polypectomy. ESTIMATED BLOOD LOSS: COMPLICATIONS: ANESTHESIA: Medication used; monitored anesthesia care. ASSISTANTS: SPECIMENS: PREOPERATIVE DIAGNOSES: Colorectal cancer screening and personal history of tubular adenoma of the colon. POSTOPERATIVE DIAGNOSES: Colorectal cancer screening and personal history of tubular adenoma of the colon, colon polyp, diverticulosis, and internal hemorrhoids. DESCRIPTION OF PROCEDURE: The patient was placed in left lateral decubitus position. The digital rectal exam revealed no abnormalities. The Olympus video pediatric colonoscope was entered into the rectum and advanced easily to the cecum. Once in the cecum, I did identify normal-appearing cecal pouch with appendiceal orifice and a normal-appearing ileocecal valve. The terminal ileum was cannulated and appeared normal. The scope was withdrawn back in the colon. The entire cecum and ileocecal valve appeared normal. The scope was slowly withdrawn assessing all mucosal surfaces carefully. Preparation was excellent. At 60 cm there was a flat but raised approximately 5 or 6 mm polyp which was removed by cold snare polypectomy and recovered by suction. The polypectomy site appeared clean, without any sign of residual polyp nor significant bleeding. I did not visualize any other polyps, colitis, nor angiodysplasia. There was a mild amount of sigmoid diverticulosis. In the rectum, scope was retroflexed visualizing internal hemorrhoids, but no other pathology. The rectal mucosa appeared normal. The scope was straightened and withdrawn from the patient. She tolerated the procedure well and was returned to the recovery area in stable condition. IMPRESSION: 1. Small colon polyp. 2. Diverticulosis. 3. Internal hemorrhoids. PLAN: The results of the pathology will be checked. I would recommend a repeat colonoscopy in 5 years for further screening. She was advised to resume her Eliquis in 48 hours. She was advised not to use any aspirin or NSAIDs for at least a week, but preferably long-term given that she is on the Eliquis. She was advised to continue to use Metamucil and/or MiraLax on a regular basis to help with her chronic constipation. This has been discussed with her . MD JAROCHO Trevino/VERONICA / [id number] ROBIN
[2025-02-12 14:25] VITALS: BP 148/60; PULSE 68; RESP 16; TEMP 36.3; O2SAT 95
== END 2025-02-12 14:47 | disposition home or self-care (01) ==
PROVIDERS: PCP Internal Medicine; Visit Provider Internal Medicine
PROC: 0DJD8ZZ Inspection of Lower Intestinal Tract, Via Natural or Artificial Opening Endoscopic (ICD-10-PCS; CPT 45378; principal; 2025-02-12 12:00)
DX: Z12.11 Encounter for screening for malignant neoplasm of colon (principal); Z86.0101 Personal history of adenomatous and serrated colon polyps; D12.4 Benign neoplasm of descending colon; K57.30 Diverticulosis of large intestine without perforation or abscess without bleeding; K64.8 Other hemorrhoids; K59.09 Other constipation; K21.9 Gastro-esophageal reflux disease without esophagitis; G47.33 Obstructive sleep apnea (adult) (pediatric); I10 Essential (primary) hypertension; E78.5 Hyperlipidemia, unspecified; E11.9 Type 2 diabetes mellitus without complications; F41.9 Anxiety disorder, unspecified; I48.91 Unspecified atrial fibrillation; H40.9 Unspecified glaucoma; Z79.01 Long term (current) use of anticoagulants; Z99.89 Dependence on other enabling machines and devices; Z79.899 Other long term (current) drug therapy; Z88.8 Allergy status to other drugs, medicaments and biological substances; Z87.891 Personal history of nicotine dependence
CPT/HCPCS: 45385; 82947; 88305; J2003; J2704

== ENCOUNTER 2025-04-19 11:31 | Outpatient (AMB) | payer MEDICARE, BC, OTHER, SELFPAY ==
--- OUTSIDE RECORDS SUMMARY | 2024-10-12 05:00 | XMS_ITS ---
Author Organization [facility] Address [address] [place] [address] Care Team Providers Care Acetone Recovery Worker Name Role Phone Jaqueline No Primary Care Provider Jayashree Coleman [phone] REASON FOR VISIT Seen Sooner Encounters Encounter Location Date Provider Diagnosis [address] [address] 10/12/2024 Jayashree Fink Plan Of Treatment Next Appt Details Provider Name:Jayashree Fink , 04/26/2025 08:30:00 AM, [address] [place], [address], Progress Notes * Alivia WILDEOB:03/1955 (69 yo F)Acc No.[id number]:10/12/2024 Progress Note Patient: Ceferino MOSERine Provider: Anat Fink DPM :1955 A ge:69 Y S ex:Female Date:10/12/2024 Address:[address] [place] [address], [place] [facility] Pcp:Jaqueline No Subjective: * Chief Complaints: * [...] 10/12/2024 Generated for Kun pelayo/Isaiah/Alok on: 0 04/19/2025 12:40 PM EDT
--- OUTSIDE RECORDS SUMMARY | 2025-02-12 09:00 | XMS_ITS ---
Author Organization [facility] Address [address] [place] [phone] Care Team Providers Care Simulation Tech Name Role Phone Rebekah (RETIRED) Radu BLAS Primary Care Provide r Good Cordero [phone] REASON FOR VISIT screening,hx polyps Encounters Encounter Location Date Provider Diagnosis [facility] [place] [address] [place] [phone] 02/12/2025 Good Berry Colon cancer scree kristen [...] JUNE IBARRA MDOB: 1955 (69 yo F)Acc No.[id number]:02/12/2025 COLON WITH MAC Patient: JUNE CALLEJAS Provider: Vince Berry MD :1955 A ge:69 Y S ex:Female Date:02/12/2025 Address:[address] [place] [address], [id number] Pcp:Radu Welch (RETIRED )MD Subjective: * Chief [...] 02/12/2025 Generated for Kun pelayo/Isaiah/Ambaritting on: 0 04/19/2025 12:40 PM EDT
--- NOTE | 2025-04-19 11:36 | A.OFFVIS_ITS ---
Intake Visit Reasons: Inj- LT knee inj-last 12/24/24 Intake Note: Josefina is a 69 yea old female who presents today for a repeat left knee injection. At her last visit on 12/24/24 the left knee was injected and she was given an order for PT for foot drop. Allergies nifedipine (NIFEDIPINE) Allergy (Unknown, Verified 02/12/25 11:27) UNKNOWN- DOES NOT REMEMBER HPI HPI Inj- LT knee inj-last 12/24/24: Details: Josefina is a 69 yea old female who presents today for a repeat left knee injection. At her last visit on 12/24/24 the left knee was injected and she was given an order for PT for foot drop. At last visit we injected her left knee. She states it helped a little bit for a short time but she did not notice a big difference. She continues to describe medial-sided left knee pain. REPLACED BY [facility] Medical History Type 2 diabetes mellitus without complications Diverticulosis of large intestine without perforation or abscess without bleeding 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 Low back pain, unspecified Pain in left shoulder Intercostal pain Major depressive disorder, recurrent, unspecified Unilateral primary osteoarthritis, left knee CELIA on CPAP Diastolic dysfunction Panic disorder Generalized anxiety disorder Dysthymia PAF (paroxysmal atrial fibrillation) New onset atrial fibrillation Prediabetes HTN (hypertension) Surgical History History of carpal tunnel release History of pituitary surgery H/O colonoscopy History of nasal surgery S/P cardiac cath History of hysterectomy Family History Mother Bladder cancer Social History Housing: House Are you a primary primary care coordinator to a significant other at home: No Do you presently have visiting nurse or other home services: No Alcohol intake: never Patient Tobacco Use Status: Former Tobacco user Tobacco use type: Cigarette Advance Directives Date on File: 07/03/22 service: No Current occupational status: retired Cognitive needs: Yes (cane) Hearing needs: Yes (b/l hearing aids) Vision needs: Yes (rx glasses) Physical Exam Extrem Other: Right foot drop present + Impingement test right hip TTP medial compartment left knee Assessment & Plan Assessment & Plan (1) Arthritis of left knee: Code(s): M17.12 - Unilateral primary osteoarthritis, left knee Category: Medical Plan: This is a 69-year-old woman with left knee osteoarthritis. Moderate on radiographs and injections have not been helpful. I think it is reasonable to attempt viscosupplementation. (2) Type 2 diabetes mellitus without complications: Code(s): E11.9 - Type 2 diabetes mellitus without complications Category: Medical Plan: Controlled diabetic and reason why we should consider avoiding steroids if they are not helpful which they have not been. Coding Level of Care Code Est Pt Level 3 (23573) Complex EM visit Add On G2211 Diagnoses Arthritis of left knee M17.12 Type 2 diabetes mellitus without complications E11.9
--- OUTSIDE RECORDS SUMMARY | 2025-04-19 12:40 | XMS_ITS | Patient Health Record ---
Author Organization [employer] [facility] Address [address] [place] [address] Care Team Providers Care Engineering Secretary Name Role Phone TONY GARCES M.D. Primary Care Provider Unavaila Felicia Pool Unavailable [phone] Reason For Referral No Information Medications Medication SIG (Take, Route, Fr equency, Duration) Notes Start Date End Date Status Simvastatin 20MG 1 ORAL daily; Duration: -3 [facility] 2011 Active Spironolactone 25MG 1 ORAL daily; Duration: -3 [facility] 05/2013 Active Terazol 7 0.4 % 1 application at bed time Vaginal Once a day; Duration: 7 day(s) 05/10/2015 Active LORazepam 0.5 MG 1 tablet as needed O rally Twice a day Active Atenolol 50MG 1 ORAL DAILY; Duration: -3 [facility] 2 Active cloNIDine HCl 0.1MG 1 ORAL twice daily; Duration: -3 [facility] 09/09/2012 Active Lisinopril 40MG 1 ORAL daily; Duration: -3 [facility] 012 Active PARoxetine HCl 40MG 1 ORAL daily; Duration: -3 [facility] 07/2012 Active Problems Problem Type SNOMED Code ICD Code Onset Dates Problem Status W/U Status Risk Notes Problem Hyperlipidemia (00680855) Other and unspecified hyperlipidemia (272.4) Active confirmed Major Problem Depressive disorder (90499576) Depressive disorder, not elsewhere classified (311) Active confirmed Major Problem Glaucoma (72856258) Unspecified glaucoma (365.9) Active confirmed Diag Problem Benign essential hypertension (6743658) Essential hypertension, benign (401.1) Active confirmed Major Problem Female genital organ symptoms (217360995) Other specified symptom associated with female genital organs (625.8) Active confirmed Major Problem Postmenopausal bleeding (68452304) Postmenopausal bleeding (627.1) Active confirmed Diag Problem Menopausal symptom (70735471) Symptomatic menopausal or female climacteric states (627.2) Active confirmed Major Problem Left lower quadrant pain (279389610) Abdominal pain, left lower quadrant (789.04) Active confirmed Diag Problem Gynecological examination normal (431625594398445) Routine gynecological examination (V72.31) Active confirmed Problem Screening for malignant neoplasm of colon (342813337) Special screening for malignant neoplasms, colon (V76.51) Active confirmed Major Plan Of Treatment Pending Test Test Name Order Date Bone Density 10/19/2016 Urine Culture and Sensitivity 05/10/2015 Insurance Providers Payer Name Payer Address Payer Phone Subscriber Number Group Number Insured Name Patient Relationship to Insured Coverage Start Date Coverage End Date [employer] [address] [place] [address] [id number] JUNE ESTEVES Self - patient is the insured [facility] [address] [place], [place] [id number] [phone] [id number] JUNE ESTEVES Self - patient is the [...] TONSILLECTOMY APPENDECTOMY PITUITARY GLAND, TUMOR EXCISION [facility] 2013 Hospitalization History Reason Date(Month/Year) CHILD SEE SURGICAL HX
--- OUTSIDE RECORDS SUMMARY | 2025-04-19 12:40 | XMS_ITS | Clinical Summary ---
Author Organization [facility] Address [address] [place] [address] Phone Care Team Providers Care Needle Loom Weaver Name Role Phone Radu Welch MD Primary Care Provider [phone] Allergies No known active allergies Medications lisinopril [...] also be consided for placement of a criminal court judge. They can see their dentist or an [...] Visual Foot Exam 03/21/2022 Influenza Vaccine (#1) 2025 Hepatitis B Vaccine Aged Out No [...] average glucose, using the formula of the J6F-Ulqxyxy Average Glucose study (ADAG), Diabetes Care, Vol.31,#8, Apr. 2007 Hemoglobin A1C 6.6 % ARMIN Comment: New assay as of: 10/25/14 Hemoglobin A1C Reference Range Adults: 4.8 - 6.0 % Non diabetic: < 6.0 % Goal: < 7.0 % Additional Action Suggested: > 8.0 % Note: Hemoglobin A1c results are invalid for patients with abnormal amounts of HbF. 12/09/2018 11:2 0 AM EDT us Radu Welch MD LAB BLOOD ORDERABLES Final Resu lt [place] from Last 3 Months or Most Recently Relevant to Health Maintenance Insurance [facility] Medicare [facility] Medicare [facility] Care Teams Needle Loom Weaver Relationship Specialty Start Date End Date Radu Welch MD [address] [place] [address] [address] [place] [facility] - General 10/10/20
== END 2025-04-19 12:01 | disposition home or self-care (01) ==
LOC: HO.HOS 11:31
PROVIDERS: PCP Internal Medicine; Visit Provider Orthopaedic Surgery
DX: M17.12 Unilateral primary osteoarthritis, left knee (principal); E11.9 Type 2 diabetes mellitus without complications
CPT/HCPCS: 99213; G2211

== ENCOUNTER → 2025-04-19 11:31 | Outpatient (BNVA) | payer MEDICARE, BC, OTHER, SELFPAY | PROVIDERS: PCP Internal Medicine; Visit Provider Orthopaedic Surgery | DX: M17.12 Unilateral primary osteoarthritis, left knee (principal); E11.9 Type 2 diabetes mellitus without complications | CPT/HCPCS: 99212; J2003 ==

== ENCOUNTER 2025-04-29 09:39 | Outpatient (AMB) | payer MEDICARE, BC, OTHER, SELFPAY ==
--- NOTE | 2025-04-29 09:40 | MHC.PC.OV ---
Vital Signs 04/29/25 09:45 Height 5 ft 6 in Weight 240 lb BMI 38.7 BMI Reason not done Patient refused/unable BP 150/64 H Blood Pressure Location Lt brachial Position Sitting Respiration 17 Pulse 76 Pulse Source Pulse Oximeter Temp 96.8 F Temp Source Temporal Artery Scan Pulse Oximetry (%) 97 Oxygen Delivery Method Room Air Intake Visit Reasons: routine Blueberry Grower Required: No Accompanied by: Self / Same As Patient Allergies nifedipine (NIFEDIPINE) Allergy (Unknown, Verified 04/29/25 09:41) UNKNOWN- DOES NOT REMEMBER Tobacco use date assessed: 12/18/24 Dental Screening Dental Screen Date: 12/18/24 HPI HPI Comments History of Present Illness Details Patient is a pleasant 69 years old female with history of anxiety and depression, panic disorder, DM, low back pain, Afib (on Eliquis), h/o COVID in 2021 with chest pain leading to cardiac catheterization, CELIA on CPAP, OA, right foot drop presenting for follow up Recently developed right foot drop. She was having right hip pain, low back pain, pelvic pain right leg pain. She received right hip injection for moderate OA. Follows ortho, saw Dr Riggins. MRI lumbar spine with significant DDD. Per patient Dr Riggins does not think MRI explains the foot drop. She is starting to have increased pain now in the left leg, especially knee. She reports history of pituitary gland surgery 27 years . Appt with neurology in april CV: On carvedilol, aldactone, lisinopril, simvastatin, hydralazine, eliquis. Denies chest pain, shortness of breath BH: stable. sinus congestion, bitemporal headaches. Remote history of sinus surgery with ENT in [place]. She does plan to call to schedule follow up Colonoscopy 02/12/25-Dr Berry-5 year recall. Mammo 09/2023 scheduled through [facility] this sept ROS see HPI PHYSICAL EXAM: GENERAL: Alert and oriented x 3. NAD EYES: EOMI. Anicteric. HENT: Moist mucous membranes. No scleral icterus. No cervical lymphadenopathy. Ear canals dry and irritated LUNGS: Clear to auscultation bilaterally. CARDIOVASCULAR: Regular rate and rhythm. No murmur. No JVD. ABDOMEN: Soft, non-tender +bs EXTREMITIES: No edema. Non-tender. SKIN: No rashes or lesions. Warm. NEUROLOGIC: Right AFO. CN II-XII grossly intact PSYCHIATRIC: Cooperative. 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 Low back pain, unspecified Pain in left shoulder Intercostal pain Major depressive disorder, recurrent, unspecified Unilateral primary osteoarthritis, left knee CELIA on CPAP Diastolic dysfunction Panic disorder Generalized anxiety disorder Dysthymia PAF (paroxysmal atrial fibrillation) New onset atrial fibrillation Prediabetes HTN (hypertension) Surgical History History of carpal tunnel release History of pituitary surgery H/O colonoscopy History of nasal surgery S/P cardiac cath History of hysterectomy Family History Mother Bladder cancer Social History Housing: House Are you a primary care assistant to a significant other at home: No Do you presently have visiting nurse or other home services: No Alcohol intake: never Patient Tobacco Use Status: Former Tobacco user Tobacco use type: Cigarette e-Cigarette/Vaping Use: Never Used Advance Directives Date on File: 07/03/22 service: No Current occupational status: retired Cognitive needs: Yes (cane) Hearing needs: Yes (b/l hearing aids) Vision needs: Yes (rx glasses) Questionnaire Thrive Questionnaire Date Thrive assessed: 12/18/24 AUDIT C Alcohol Use Questionnaire (AUDIT-C) 1. How often do you have a drink containing alcohol?: Never Total Score: 0 JUSTIN-7 AMB Questionnaire JUSTIN-7 Date JUSTIN - 7 assessed: 12/18/24 Source: Developed by Drs. Good Brennan, Mimi Sher, Bay Zepeda and colleagues, with an educational ann marie from [employer]. Physical exam (Primary Care) Vital Signs: Last Vital Signs Temp 96.8 F 04/29/25 09:45 Pulse 76 04/29/25 09:45 Resp 17 04/29/25 09:45 BP 150/64 H 04/29/25 09:45 Pulse Ox 97 04/29/25 09:45 Oxygen Delivery Method Room Air 04/29/25 09:45 BMI result Body Mass Index 38.7 Tobacco/Smoking Status: Tobacco use Status Tobacco use date assessed 12/18/24 04/29/25 09:47 Patient Tobacco Use Status Former Tobacco user 04/29/25 09:47 Tobacco use type Cigarette 04/29/25 09:47 e-Cigarette/Vaping Use Never Used 04/29/25 09:47 Thrive Assessment: Date of Thrive Assessment Date Thrive assessed 12/18/24 04/29/25 09:47 Coding Level of Care Code Est Pt Level 4 (31127) Diagnoses Primary hypertension I10 Hypertension type: primary hypertension Type 2 diabetes mellitus without complication, without long-term current use of insulin E11.9 Diabetes mellitus terminal gauger supervisor insulin use: without terminal gauger supervisor use Right foot drop M21.371 Assessment & Plan Assessment & Plan (1) HTN (hypertension): Code(s): I10 - Essential (primary) hypertension Category: Medical Qualifiers: Hypertension type: primary hypertension Qualified Code(s): I10 - Essential (primary) hypertension (2) Type 2 diabetes mellitus without complications: Code(s): E11.9 - Type 2 diabetes mellitus without complications Category: Medical Qualifiers: Diabetes mellitus correction insulin use: without terminal gauger supervisor use Qualified Code(s): E11.9 - Type 2 diabetes mellitus without complications (3) Right foot drop: Code(s): M21.371 - Foot drop, right foot Category: Medical Plan right foot drop-upcoming neurology evaluation diabetes controlled off medications subacute sinusitis-zpak ordered Orders: Orders Hemoglobin A1c Today E11.9 - Type 2 diabetes mellitus without complications Medications: New crfygurr-kgxjsiomk-UY 3.5-10,000-1 mg/mL-unit/mL-% 4 drps otic (ear) left Q8H PRN 10 mL 0RF ear itch 10 days azithromycin For 250 mg dose pack: take 500 mg today (day 1), then 250 mg for 4 days (days 2-5) PO 6 tabs 0RF simvastatin 20 mg PO BEDTIME 90 tabs 3RF lisinopril 40 mg PO BEDTIME 90 tabs 3RF
[2025-04-29 09:45] VITALS: BP 150/64; PULSE 76; RESP 17; TEMP 36; O2SAT 97; BMI 38.7
--- OUTSIDE RECORDS SUMMARY | 2025-04-29 10:04 | XMS_ITS | Clinical Summary ---
Author Organization [facility] Address [address] [place] [address] Phone Care Team Providers Care Salary And Wage Administrator Name Role Phone Radu Welch MD Primary Care Provider [phone] Allergies No known active allergies Medications lisinopril [...] also be consided for placement of a state editor. They can see their dentist or an [...] average glucose, using the formula of the X7N-Ajygeiz Average Glucose study (ADAG), Diabetes Care, Vol.31,#8, [...] Health Maintenance Insurance [facility] Medicare [facility] Medicare [facility] Care Teams Salary And Wage Administrator Relationship Specialty Start Date End Date Radu Welch MD [address] [place] [address] [id number] [place] [facility] - General 10/10/20
== END 2025-04-29 10:14 | disposition home or self-care (01) ==
LOC: HO.HMCHD 09:39
PROVIDERS: PCP Internal Medicine; Visit Provider Internal Medicine
DX: I10 Essential (primary) hypertension (principal); E11.9 Type 2 diabetes mellitus without complications; M21.371 Foot drop, right foot

== ENCOUNTER → 2025-04-29 09:39 | Outpatient (BNVA) | payer MEDICARE, BC, OTHER, SELFPAY | PROVIDERS: PCP Internal Medicine; Visit Provider Internal Medicine | DX: I10 Essential (primary) hypertension (principal); E11.9 Type 2 diabetes mellitus without complications; M21.371 Foot drop, right foot; I48.91 Unspecified atrial fibrillation; G47.33 Obstructive sleep apnea (adult) (pediatric); F41.9 Anxiety disorder, unspecified; F32.9 Major depressive disorder, single episode, unspecified; Z79.01 Long term (current) use of anticoagulants; Z79.899 Other long term (current) drug therapy; Z99.89 Dependence on other enabling machines and devices | CPT/HCPCS: 99212 ==

== ENCOUNTER 2025-05-17 09:24 | Outpatient (AMB) | payer MEDICARE, BC, OTHER, SELFPAY ==
--- OUTSIDE RECORDS SUMMARY | 2025-02-12 09:00 | XMS_ITS ---
Author Organization [facility] Address [address] [place] [address] Care Team Providers Care Manager Mobile Name Role Phone Rebekah (RETIRED) Radu BLAS Primary Care Provide r Good Cordero [phone] REASON FOR VISIT screening,hx polyps Encounters Encounter Location Date Provider Diagnosis [facility] [place] [address] [place] [id number] 02/12/2025 Good Berry Colon cancer scree kristen [...] JUNE IBARRA MDOB: 1955 (69 yo F)Acc No.[id number]:02/12/2025 COLON WITH MAC Patient: JUNE CALLEJAS Provider: Vince Berry MD :1955 A ge:69 Y S ex:Female Date:02/12/2025 Address:[address] [place] [address], [id number] Pcp:Radu Welch (RETIRED )MD Subjective: * Chief [...] MD Date: 0 02/12/2025 Generated for Kun pelayo/Isaiah/Ambraitting on: 0 05/17/2025 09:55 AM EDT
--- NOTE | 2025-05-17 09:25 | A.OFFVIS_ITS ---
Vital Signs 05/17/25 09:26 Height 5 ft 6 in Weight 246 lb 6 oz BMI 39.8 BP 148/82 H Blood Pressure Location Rt brachial Position Sitting Pulse 71 Pulse Source Pulse Oximeter Pulse Oximetry (%) 95 Oxygen Delivery Method Room Air Intake Visit Reasons: INP-Foot drop/right foot Intake Note: NPV for foot drop Rubber Thread Spooler Required: No Accompanied by: Spouse Allergies nifedipine (NIFEDIPINE) Allergy (Unknown, Verified 05/17/25 09:31) UNKNOWN- DOES NOT REMEMBER HPI Comments Details: 69y/o female comes for evaluation of Right foot weakness. she had right groin pain, the whole leg pain last Jul 2024 . she was seen by pain management at that time and recieved right hip injections - wa stold she had Right hip OA . she had a fall when she tried to get out of car , she fell on her right foot . she was able to get up and walk . In 2 days she started having numbness right toes and dorsum of right foot. she had some weakness.she saw a supervisor engine repair who noticed that she had Right foot drop. No change since then . she did PT which did not help. She denies any paresthesias no sharp shooting pains , no sensory disturbances . 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 Low back pain, unspecified Pain in left shoulder Intercostal pain Major depressive disorder, recurrent, unspecified Unilateral primary osteoarthritis, left knee CELIA on CPAP Diastolic dysfunction Panic disorder Generalized anxiety disorder Dysthymia PAF (paroxysmal atrial fibrillation) New onset atrial fibrillation Prediabetes HTN (hypertension) Surgical History History of carpal tunnel release History of pituitary surgery H/O colonoscopy History of nasal surgery S/P cardiac cath History of hysterectomy Family History Mother Bladder cancer Social History Housing: House Are you a primary child caregiver to a significant other at home: No Do you presently have visiting nurse or other home services: No Alcohol intake: never Patient Tobacco Use Status: Former Tobacco user Tobacco use type: Cigarette e-Cigarette/Vaping Use: Never Used Advance Directives Date on File: 07/03/22 service: No Current occupational status: retired Cognitive needs: Yes (cane) Hearing needs: Yes (b/l hearing aids) Vision needs: Yes (rx glasses) Physical Exam Vital Signs: Last Vital Signs Pulse 71 05/17/25 09:26 BP 148/82 H 05/17/25 09:26 Pulse Ox 95 05/17/25 09:26 Oxygen Delivery Method Room Air 05/17/25 09:26 BMI result Body Mass Index 39.8 Const General: cooperative, comfortable and no acute distress Nutritional Appearance: obese Orientation/consciousness: patient oriented x3 Eyes Pupils: Equal, round and reactive pupils present Neuro Other: Weakness of right fOOT dorsiflexion 0/5 Gait- High steppage gait on Right General: patient oriented x3 and moves all extremities Cranial nerves: Yes Facial sensation intact/muscles of mastication intact, Yes Equal, round and reactive pupils present, Yes Bilaterally intact EOM present, Yes Nystagmus not present, Yes Normal facial strength present, Yes Midline tongue present, Yes Symmetric palate elevation present, Yes Ability to bilaterally rotate head present and Yes Ability to bilaterally elevate shoulders present Cognition (Neuro): normal cognition Motor exam (neuro): Normal motor muscle tone present throughout Deep tendon reflexes (DTR's): Right triceps reflex intensity grade: 1+, Left triceps reflex intensity grade: 1+, Rt Biceps (C5, C6): 1+, Left biceps reflex intensity grade: 1+, Right brachioradialis reflex intensity grade: 1+, Left brachioradialis reflex intensity grade: 1+, Right patellar reflex intensity grade: 0 and Left patellar reflex intensity grade: 0 Coordination: bjvmmm-[id number] test normal Results Reviewed Results Reviewed: 09/2024 This is an abnormal study. 2. There is electrodiagnostic evidence for acute/subacute right L5 radiculopathy. 3. Most likely has underlying sensorimotor peripheral neuropathy. 4. There is no electrodiagnostic evidence for focal peroneal neuropathy or tibial neuropathy, or lumbosacral plexopathy. 07/2024 -Multilevel lumbar spondylosis without significant spinal canal stenosis. There is mild left neural foraminal narrowing at L4-L5 and mild left greater than right neural foraminal narrowing at L5-S1. Assessment & Plan Assessment & Plan (1) Right foot drop: Code(s): M21.371 - Foot drop, right foot Category: Medical (2) Right leg numbness: Code(s): R20.0 - Anesthesia of skin Category: Medical (3) Lumbosacral radiculopathy at L5: Code(s): M54.17 - Radiculopathy, lumbosacral region Category: Medical Plan Repeat EMG NCS for evaluation PT - to strengthen LE Use AFO Orders: Orders NE nerve conduction velocity Today M21.371 - Foot drop, right foot, M54.17 - Radiculopathy, lumbosacral region, R20.0 - Anesthesia of skin NE electromyogram (EMG) Today M21.371 - Foot drop, right foot, M54.17 - Radiculopathy, lumbosacral region, R20.0 - Anesthesia of skin PT Evaluation and Treatment Today M21.371 - Foot drop, right foot, M54.17 - Radiculopathy, lumbosacral region Coding Level of Care Code New Pt Level 4 (22382) Complex EM visit Add On G2211 Diagnoses Right foot drop M21.371 Right leg numbness R20.0 Lumbosacral radiculopathy at L5 M54.17
[2025-05-17 09:26] VITALS: BP 148/82; PULSE 71; O2SAT 95; BMI 39.8
--- OUTSIDE RECORDS SUMMARY | 2025-05-17 09:55 | XMS_ITS | Patient Health Record ---
Author Organization [facility] Address [address] [place] [address] Care Team Providers Care Slate Worker Name Role Phone Jaqueline No Primary Care Provider Jayashree Coleman Unavailable [phone] Allergies Allergen (clinical drug ingredient) Drug/Non Drug Allergy documented on EMR Reaction Allergy Type Onset Date Status Penicillin Unknown Drug Allergy Active Results Component Value Reference Range Notes HEMOGLOBIN A1C (GLYCOHEMOGLO BIN) Reviewed date:01/18/2025 08:17:52 AM Interpretation: Performing Lab: Notes/Report: HEMOGLOBIN A1C % (HH) 6.7 Reason For Referral No Information Medications Medication SIG (Take, Route, Frequency, Duration) Notes Start Date End Date Status clonazePAM 0.5 MG Oral; Duration: 30 Active Latanoprost 0.005 % Ophthalmic; Duration : 50 Active Compression Stockings 20-30mm Hg 1 pair wear daily; Duration: 30 days Active buPROPion HCl ER (SR) 100 MG 1 tablet in the morning Orally Once a day; Duration: 30 day(s) Active zzzCompression Stockings 20-30mm Hg . . .; Duration: . Active PARoxetine HCl 40 MG 1 tablet in the morning Orally Once a day; Duration: 30 day(s) Active Spironolactone 25 MG 1 tablet Orally; Duration: 30 day(s) Active cloNIDine HCl 0.1 MG as directed Orally Active Lisinopril 40 MG as directed Orally Once a day Active Simvastatin 20 MG Orally Ac tive Keflex 500 MG 1 capsule Orally Twice a day; Duration: 10 day(s) Not-Taking Lidoderm 5 % 1 patch to intact skin remove after 12 hours Externally Once a day Not-Taking Colcrys 0.6 MG 1 tablet Orally Once a day; Duration: 5 days 06/07/2016 Not-Taking Vitamin D Active eliquis 5 mg Active Carvedilol 12.5 MG 1 tablet with food Orally Twice a day; Duration: 30 day(s) Active Atenolol 25 MG 2 Orally Once a day Not-Taking hydrALAZINE HCl 25 MG 1 tablet with food Orally Three times a day; Duration: 30 day(s) Active Paxil Not-Taking Eye Drops Active hydroCHLOROthiazide Not-Taking Claritin Active LORazepam 0.5 MG 1 tablet as needed Orally every 6 hrs Not-Taking Physical Therapy . . . 2-3x/week; Duration: 3-4 weeks 12/19/2015 Not-Taking Night Splint AFO - L1930 as directed 12/19/2015 Not-Taking Doxycycline Hyclate 100 MG 1 tablet Oral ly Once a day; Duration: 10 days Not-Taking Cephalexin 500 MG 1 capsule Orally twice a day; Duration: 10 days 11/21/2023 Not-Taking Extra Depth Orthopedic Shoes (1 Pair) with Customized Heat Molded Multidensity Innersoles (3 Pair) as directed Dx: NIDDM/Polyneuropathy (E11.42), Hammertoe Foot Deformity (M20.41,M20.42), Preulcerative Skin Lesion(s) (L85.1 Active Brimonidine Tartrate 0.15 % 1 drop into affected eye Ophthalmic every 8 hrs Active Immunizations Vaccine Route Administration Date Status [...] (Standard) Question Answer Notes Tobacco use: Nonsmoker AUDIT-C (Standard) Question Answer Notes Did you have a drink containing alcohol in the p ast year? No Points 0 Interpretation Negative Problems Problem Type SNOMED Code ICD Code Onset Dates Problem Status W/U Status Risk Notes Problem Polyneuropathy due to type 2 diabetes mellitus (674766492) Type 2 diabetes mellitus with diabetic polyneuropathy (E11.42) Active confirmed Vital Signs Blood pressure diastolic 70 mm Hg 04/26/2025 Height 5ft6in in 04/26/2025 Blood pressure systolic 120 mm Hg 04/26/2025 Weight 240 lbs 04/26/2025 BMI 38.73 kg/m2 04/26/2025 Procedures Procedure Date Ordered Date Performed Result Body Sit e 72540-Rklm Destruction, 1-14 06/22/2024 N/A 86933-XRBZ SKIN LESIONS, 2 TO 4 06/22/2024 N/A F2383-KKYXBDYV DYSTROPHIC NAILS ANY # 06/22/2024 N/A 87524-Vpuy Destruction, 1-14 09/14/2024 N/A 78149-MZYA SKIN LESIONS, 2 TO 4 09/14/2024 N/A W5000-JKAWOHXA DYSTROPHIC NAILS ANY # 09/14/2024 N/A 50396-Nqoy Destruction, 1-14 01/18/2025 N/A 88660-BEVP SKIN LESIONS, 2 TO 4 01/18/2025 N/A O3250-XOXEKCTH DYSTROPHIC NAILS ANY # 01/18/2025 N/A 30224-Wcru Destruction, 1-14 04/26/2025 N/A 55310-Zfqbvqcy Plate 04/26/2025 N/A 93479-Ylvidlbe Plate Each Additional 04/26/2025 N/A 46212-WKYU SKIN LESIONS, 2 TO 4 04/26/2025 N/A N5866-FVTSFUBJ DYSTROPHIC NAILS ANY # 04/26/2025 N/A Encounters Encounter Location Date Provider Diagnosis [facility] [address] [address] 06/22/2024 Jayashree Black Other viral warts B07.8 ; Other hammer toe(s) (acquired), right foot M20.41 ; Pain in left foot M79.672 ; Type 2 diabetes mellitus with diabetic polyneuropathy E11.42 ; Other hammer toe(s) (acquired), left foot M20.42 and Ingrown nail L60.[address] [facility] [address] 09/14/2024 Jayashree Fink Other viral warts B07.8 ; Right foot drop M21.371 ; Pain in left foot M79.672 ; Type 2 diabetes mellitus with diabetic polyneuropathy E11.42 ; Injury of right peroneal nerve, initial encounter S84.11XA and Neuritis M79.[address] [address] 01/18/2025 Jayashree Fink Other viral warts B07.8 ; Right foot drop M21.371 ; Pain in left foot M79.672 ; Type 2 diabetes mellitus with diabetic polyneuropathy E11.42 and Neuritis M79.[address] [address] 04/26/2025 Jayashree Fnik Other viral warts B07.8 ; Pain in left foot M79.672 ; Type 2 diabetes mellitus with diabetic polyneuropathy E11.42 and Ingrown nail L60.[address] [address] 09/14/2024 Jayashreelibertad Fink [facility] [address] 11/18/[address] [address] 12/11/2024 Jayashree Fink Assessments Encounter Date Diagnosis (ICD Code) Assessment Notes Treatment Notes Treatment Clinical Notes Section Notes 06/22/2024 Other hammer toe(s) (acquired), right foot (ICD-10 - M20.41) Patient Educated with: DIABETIC FOOT CARE INSTRUCTIONS. pdf (DIABETIC FOOT CARE INSTRUCTIONS. pdf) 06/22/2024 Other viral warts (ICD-10 - B07.8) 09/14/2024 Other viral warts (ICD-10 - B07.8) 09/14/2024 Right foot drop (ICD-10 - M21.371) 01/18/2025 Other viral warts (ICD-10 - B07.8) 01/18/2025 Right foot drop (ICD-10 - M21.371) 04/26/2025 Other viral warts (ICD-10 - B07.8) 04/26/2025 Pain in left foot (ICD-10 - M79.672) 04/26/2025 Type 2 diabetes mellitus with diabetic polyneuropathy (ICD-10 - E11.42) 01/18/2025 Pain in left foot (ICD-10 - M79.672) 06/22/2024 Pain in left foot (ICD-10 - M79.672) 09/14/2024 Pain in left foot (ICD-10 - M79.672) 09/14/2024 Type 2 diabetes mellitus with diabetic polyneuropathy (ICD-10 - E11.42) 06/22/2024 Type 2 diabetes mellitus with diabetic polyneuropathy (ICD-10 - E11.42) 01/18/2025 Type 2 diabetes mellitus with diabetic polyneuropathy (ICD-10 - E11.42) 04/26/2025 Ingrown nail (ICD-10 - L60.0) 01/18/2025 Neuritis (ICD-10 - M79.2) 09/14/2024 Injury of right peroneal nerve, initial encounter (ICD-10 - S84.11XA) 06/22/2024 Other hammer toe(s) (acquired), left foot (ICD-10 - M20.42) 06/22/2024 Ingrown nail (ICD-10 - L60.0) 09/14/2024 Neuritis (ICD-10 - M79.2) 09/14/2024 Other 04/26/2025 Other Patient Educated with: DIABETIC FOOT CARE INSTRUCTIONS. pdf (DIABETIC FOOT CARE INSTRUCTIONS. pdf) Plan Of Treatment Pending Test Test Name Order Date 97264-Toeq Destruction, -14 07/20/2019 74282-Klof Destruction, -14 01/18/2020 87492-Xkqh Destruction, -04/18/2020 69771-Mfbt Destruction, -07/07/2020 80328-Cnkm Destruction, -14 10/13/2020 50011-Xnhm Destruction, -14 01/12/2021 58730-Egng Destruction, -14 05/15/2021 98112-Ucwl Destruction, -14 08/31/2021 41254-Ilxr Destruction, -14 11/28/2021 48807-Zygp Destruction, 1-14 03/29/2022 53515-Akap Destruction, 1-14 07/02/2022 72174-Aveb Destruction, 1-14 10/11/2022 26319-Qczt Destruction, 1-14 04/25/2023 04408-Zvuw Destruction, 1-14 08/05/2023 13056-Qfcm Destruction, 1-14 01/17/2023 16708-Zqur Destruction, 1-14 12/23/2023 41348-Pldz Destruction, 1-14 03/16/2024 74318-Zgkj Destruction, 1-14 06/22/2024 83670-Hdla Destruction, 1-14 09/14/2024 81387-Frhh Destruction, 1-14 01/18/2025 23842-Fabr Destruction, 1-14 04/26/2025 37975-Bsffhwan Plate 04/26/2025 33842-Ndzivdla Plate 03/16/2024 73870-Qfqoneyu Plate 08/05/2023 66237-Ngpzfflp Plate 01/17/2023 60267-Puwcqxuk Plate 03/29/2022 93723-Wzlzmoll Plate 11/28/2021 47618-Gkuqdlzb Plate 08/31/2021 38577-Vfhdfkdt Plate 05/15/2021 70244-Edzhqgnh Plate 01/12/2021 42424-Srvjmudu Plate 04/18/2020 53460-Ahmfjxpx Plate Each Additional 22423-Zmrmldqz Plate Each Additional 23602-PCS 11/21/2023 10155- Debride <25 sq cm 12/23/2023 64235-HUCMFUM SKIN/TISSUE 12/05/2023 49313-VILV SKIN LESIONS, 2 TO 4 12/05/19 41366-VTGX SKIN LESIONS, 2 TO 4 08/05/20 06067-YEEY SKIN LESIONS, 2 TO 4 01/18/20 50079-CRZU SKIN LESIONS, 2 TO 4 10/11/19 13716-MFOL SKIN LESIONS, 2 TO 4 07/02/20 53233-YZVU SKIN LESIONS, 2 TO 4 12/23/19 23116-LORJ SKIN LESIONS, 2 TO 4 04/25/20 63672-LENZ SKIN LESIONS, 2 TO 4 03/16/20 97807-RKJC SKIN LESIONS, 2 TO 4 04/26/20 32252-IKMZ SKIN LESIONS, 2 TO 4 01/19/20 54496-NJUY SKIN LESIONS, 2 TO 4 09/14/20 24 02754-HNUN SKIN LESIONS, 2 TO 4 06/22/20 24 60119-VCSS SKIN LESIONS, 2 TO 4 04/18/20 54130-IHQU SKIN LESIONS, 2 TO 4 01/18/20 52714-QMLU SKIN LESIONS, 2 TO 4 07/20/20 19 75863-FEHL SKIN LESIONS, 2 TO 4 07/07/20 27936-MUOQ SKIN LESIONS, 2 TO 4 10/13/19 36504-BJTG SKIN LESIONS, 2 TO 4 01/13/20 13653-UJXT SKIN LESIONS, 2 TO 4 05/15/20 51142-WGLI SKIN LESIONS, 2 TO 4 08/31/20 70394-FHML SKIN LESIONS, 2 TO 4 11/29/19 13211-PGTW SKIN LESIONS, 2 TO 4 03/29/20 T1569-LADMWPVK DYSTROPHIC NAILS ANY # P6129-RBAISABI DYSTROPHIC NAILS ANY # K5135-MSAMTBEK DYSTROPHIC NAILS ANY # N6575-SGSBBHHR DYSTROPHIC NAILS ANY # R6874-XNSCHKCD DYSTROPHIC NAILS ANY # U6894-ODIJEFJZ DYSTROPHIC NAILS ANY # G3443-CWSRUIFP DYSTROPHIC NAILS ANY # Z8845-VRHEUTAZ DYSTROPHIC NAILS ANY # A2585-RXMXNKTE DYSTROPHIC NAILS ANY # S7634-LPXZKTRG DYSTROPHIC NAILS ANY D0663-UQQKRXJG DYSTROPHIC NAILS ANY # G3820-HQYVVXDX DYSTROPHIC NAILS ANY # M7334-MOANRVSQ DYSTROPHIC NAILS ANY # V7708-OXHLZROK DYSTROPHIC NAILS ANY # I1694-JJCSTDQD DYSTROPHIC NAILS ANY # B8203-FMGOFZLE DYSTROPHIC NAILS ANY # R1542-HJVKNFCN DYSTROPHIC NAILS ANY # Q6170-MMCMOYVA DYSTROPHIC NAILS ANY # L2970-LXZYPKMP DYSTROPHIC NAILS ANY # I7656-ODYXBOKT DYSTROPHIC NAILS ANY # N0709-EDCXGOZG DYSTROPHIC NAILS ANY # U4697-AUZODCYU DYSTROPHIC NAILS ANY # Next Appt Details Provider Name:Jayashree Fink , 07/29/2025 08:30:00 AM, [address] [place], [address], Insurance Providers Payer Name Payer Address Payer Phone Subscriber Number Group Number Insured Name Patient Relationship to Insured Coverage Start Date Coverage End Date Medicare [facility] [employer] [address] [place] [address] [id number] Josefina Wilde Self - patient is the insured [facility] [address] [place] [address] [id number] Josefina Wilde Self - patient is the insured [employer] [address] [place] [address] [id number] MAINE WILDE Spouse - patient is the spouse of the insured Medical (General) History Medical History History ICD Code hypertension depression Arthritis Anxiety disorder Glaucoma Neuropathy Chicken pox Back,Hip,and Knee pain Carpal tunnel NIDDM type II diabetes Equinus contracture of left ankle M24.57 2 Equinus contracture of right ankle M24.5 71 Primary osteoarthritis, left ankle and f oot M19.072 Other hammer toe(s) (acquired), right fo ot M20.41 Other hammer toe(s) (acquired), left elzbieta t M20.42 Surgical History Surgery Date(Month/Year) hysterectomy 10/30/13 carpal tunnel surgery tumor removal appendectomy Pituitary sinus surgery 06/25/22 Hospitalization History Reason Date(Month/Year) [place] [facility] [place] [facility] 3 days sinus surgery complication uncontrollable nose bleed [place] [facility] [place]
--- OUTSIDE RECORDS SUMMARY | 2025-05-17 09:55 | XMS_ITS | Clinical Summary ---
Author Organization [facility] Address [address] [place] [address] Phone Care Team Providers Care Sports Cartoonist Name Role Phone Radu Welch MD Primary Care Provider [phone] Allergies No known active allergies Medications lisinopril [...] also be consided for placement of a road crossing guard. They can see their dentist or [...] average glucose, using the formula of the K9K-Xlrwbur Average Glucose study (ADAG), Diabetes Care, Vol.31,#8, [...] Most Recently Relevant to Health Maintenance Insurance [facility] Medicare [facility] Medicare [facility] Care Teams Sports Cartoonist Relationship Specialty Start Date End Date Radu Welch MD [address] [place] [address] [address] [place] [facility] - General 10/10/20
--- OUTSIDE RECORDS SUMMARY | 2025-05-17 09:56 | XMS_ITS | Patient Health Record ---
Author Organization [employer] [facility] Address [address] [place] [address] Care Team Providers Care Traffic Division Commanding Officer Name Role Phone TONY GARCES M.D. Primary Care Provider Unavaila Felicia Pool Unavailable [phone] Reason For Referral No Information Medications Medication SIG (Take, Route, Fr equency, Duration) Notes Start Date End Date Status Simvastatin 20MG 1 ORAL daily; Duration: -3 [facility] 2011 Active Spironolactone 25MG 1 ORAL daily; Duration: -3 [facility] 05/2013 Active Terazol 7 0.4 % 1 application at bed time Vaginal Once a day; Duration: 7 day(s) 05/10/2015 Active LORazepam 0.5 MG 1 tablet as needed O rally Twice a day Active Atenolol 50MG 1 ORAL DAILY; Duration: -3 [facility] 2 Active cloNIDine HCl 0.1MG 1 ORAL twice daily; Duration: -3 [facility] 09/09/2012 Active Lisinopril 40MG 1 ORAL daily; Duration: -3 [facility] 012 Active PARoxetine HCl 40MG 1 ORAL daily; Duration: -3 [facility] 07/2012 Active Problems Problem Type SNOMED Code ICD Code Onset Dates Problem Status W/U Status Risk Notes Problem Hyperlipidemia (84153942) Other and unspecified hyperlipidemia (272.4) Active confirmed Major Problem Depressive disorder (87613757) Depressive disorder, not elsewhere classified (311) Active confirmed Major Problem Glaucoma (95087464) Unspecified glaucoma (365.9) Active confirmed Diag Problem Benign essential hypertension (5441773) Essential hypertension, benign (401.1) Active confirmed Major Problem Female genital organ symptoms (371094048) Other specified symptom associated with female genital organs (625.8) Active confirmed Major Problem Postmenopausal bleeding (85891329) Postmenopausal bleeding (627.1) Active confirmed Diag Problem Menopausal symptom (20704894) Symptomatic menopausal or female climacteric states (627.2) Active confirmed Major Problem Left lower quadrant pain (733422359) Abdominal pain, left lower quadrant (789.04) Active confirmed Diag Problem Gynecological examination normal (384782267330124) Routine gynecological examination (V72.31) Active confirmed Problem Screening for malignant neoplasm of colon (870861887) Special screening for malignant neoplasms, colon (V76.51) Active confirmed Major Plan Of Treatment Pending Test Test Name Order Date Bone Density 10/19/2016 Urine Culture and Sensitivity 05/10/2015 Insurance Providers Payer Name Payer Address Payer Phone Subscriber Number Group Number Insured Name Patient Relationship to Insured Coverage Start Date Coverage End Date [employer] [address] [place] [address] [id number] JUNE ESTEVES Self - patient is the insured [facility] LINK [address] [place], [place] [id number] JUNE ESTEVES Self - patient is the [...] APPENDECTOMY PITUITARY GLAND, TUMOR EXCISION [facility] Hospitalization History Reason Date(Month/Year) CHILD SEE SURGICAL HX
== END 2025-05-17 10:17 | disposition home or self-care (01) ==
LOC: HO.HSMS 09:25
PROVIDERS: Visit Provider Psychiatry & Neurology Neurology
DX: M21.371 Foot drop, right foot (principal); R20.0 Anesthesia of skin; M54.17 Radiculopathy, lumbosacral region
CPT/HCPCS: 99204; G2211

== ENCOUNTER → 2025-05-17 09:24 | Outpatient (BNVA) | payer MEDICARE, BC, OTHER, SELFPAY | PROVIDERS: Visit Provider Psychiatry & Neurology Neurology | DX: M21.371 Foot drop, right foot (principal); R20.0 Anesthesia of skin; M54.17 Radiculopathy, lumbosacral region | CPT/HCPCS: 99202 ==

== ENCOUNTER 2025-05-21 11:30 | Outpatient (AMB) | payer MEDICARE, BC, OTHER, SELFPAY ==
--- OUTSIDE RECORDS SUMMARY | 2024-12-17 05:15 | XMS_ITS ---
Author Organization [facility] Address [address] [place] [address] Care Team Providers Care Business Asst Name Role Phone Jaqueline No Primary Care Provider Jayashree Coleman [phone] Encounters Encounter Location Date Provider Diagnosis [address] [address] 12/17/2024 Jayashree Fink Plan Of Treatment Next Appt Details Provider Name:Jayashree Fink , 07/29/2025 08:30:00 AM, [address] [place], [address], Progress Notes * Alivia WILDEOB:03/1955 (69 yo F)Acc No.[id number]:12/17/2024 Progress Note Patient: Ceferino MOSERine Provider: Anat Fink DPM :1955 A ge:69 Y S ex:Female Date:12/17/2024 Address:[address] [place] [address], [place] gre[place]ert[place] [facility] Pcp:Jaqueline No Subjective: * Chief Complaints: * [...] 12/17/2024 Generated for Kun pelayo/Isaiah/Alok on: 0 05/24/2025 05:06 PM EDT
--- OUTSIDE RECORDS SUMMARY | 2025-02-12 09:00 | XMS_ITS ---
Author Organization [facility] Address [address] [place] [phone] Care Team Providers Care Track Layer Name Role Phone Rebekah (RETIRED) Radu BLAS Primary Care Provide r Good Cordero [phone] REASON FOR VISIT screening,hx polyps Encounters Encounter Location Date Provider Diagnosis [facility] [place] Outpatient [address] [place] [id number] 02/12/2025 Good Berry Colon cancer scree kristen [...] JUNE IBARRA MDOB: 1955 (69 yo F)Acc No.[id number]:02/12/2025 COLON WITH MAC Patient: JUNE CALLEJAS Provider: Vince Berry MD :1955 A ge:69 Y S ex:Female Date:02/12/2025 Address:[address] [place] [address], [id number] Pcp:Radu Welch (RETIRED )MD Subjective: * Chief Complaints: * 1 . Screening,hx polyps. * Medical History: Objective: * Vitals: Assessment: * Assessment: 1. C olon cancer screening - Z12.11 (Primary) 2 . A denomatous colon polyp - D12.6 3 . D iverticulosis of large intestine without perforation or abscess without bleeding - K57.30 4 . O ther hemorrhoids - K64.8 Plan: * Treatment: * Procedure Codes: 4 5385 LESION REMOVAL COLONOSCOPY, Modifiers: PT , 0529F INTRVL 3+YRS PTS CLNSCP DOCD, 0528F RCMND FLW-UP 10 YRS DOCD, Modifiers: 1P * * The named appointment provid er may or may not be the originator of this progress note, and it is not deemed complete until electronically signed by the appointment provider. Sign off status: Pending * Provider: Vince Berry MD Date: 0 02/12/2025 Generated for Kun pelayo/Isaiah/Ambaritting on: 0 05/24/2025 05:05 PM EDT
--- NOTE | 2025-05-21 12:07 | A.OFFPSYCH_ITS ---
Intake Intake Visit Reasons: depression Allergies nifedipine (NIFEDIPINE) Allergy (Unknown, Verified 06/11/25 10:05) UNKNOWN- DOES NOT REMEMBER HPI- Psychiatric Chief Complaint: depression HPI Narrative: Patient seen psychiatric follow-up. Patient has a history of panic disorder and some degree of dysthymia. The patient has been on a combination of Paxil and Wellbutrin. Patient has had more of a difficult time over the past couple of years dealing and feeling with the dissension not people have lied each other including in her family with her sister. The patient has been on Paxil 40 mg Wellbutrin 100 mg no ongoing panic occasional use of clonazepam. Patient has gained weight over time on Paxil but has felt 2 fearful to try and change has generally been stable on these doses. Addition of Wellbutrin has been helpful. Past Psychiatric History: History of panic disorder chronic dysthymia some of the anxiety difficulties started with prolactinoma and history of surgery Mental Status Exam Mental Status Exam Narrative: Mental Status Exam Narrative: Appearance: Casually dressed Behavior: Cooperative appropriate psychomotor: Within normal limits Speech: Normal volume and prosody Thought proccess logical and goal-directed Thought content: Concerns regarding recent medical issues changes in providers she was seeing Dr. Welch Mood: Somewhat down and anxious Affect: Appropriate to mood constrict SI:denies HI:denies VH/AH:none Delusions: None Insight/judgment: Good insight and judgment Memory/cog: Intact Assessment and Plan Assessment & Plan (1) Dysthymia: Status: Acute Code(s): F34.1 - Dysthymic disorder (2) Generalized anxiety disorder: Status: Acute Code(s): F41.1 - Generalized anxiety disorder (3) Panic disorder: Status: Acute Code(s): F41.0 - Panic disorder [episodic paroxysmal anxiety] Plan Patient generally stable some degree of chronic anxiety month chronic dysphoric. Some difficulty with aging and medical issues. Generally feels stable on Paxil Wellbutrin does not wish to make a change Medications: Discontinued clonazepam Discontinued Reason: Doctor's Order 0.5 mg PO DAILY PRN 30 tabs 2RF Anxiety Counseling and coordination of Care Details-Self Mgmt counseling: Encourage socialization daily walking as possible Medication management counseling: Effectiveness, Side effects and Dosing range Diagnosis and Prognosis Counseling: Adequacy of current interventions Details: I spent [37] minutes reviewing the record, seeing the patient and documenting in the medical record. Counseling provided to the patient/caregiver as outlined below. Addressed patient/caregiver concerns regarding current medication regime including effective adherence. Addressed patient/caregiver concerns regarding diagnosis and prognosis including accuracy of diagnosis, prognosis over time, impact of diagnosis. Addressed patient/caregiver concerns regarding impact of recent stressors. 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 Low back pain, unspecified Pain in left shoulder Intercostal pain Major depressive disorder, recurrent, unspecified Unilateral primary osteoarthritis, left knee CELIA on CPAP Diastolic dysfunction Panic disorder Generalized anxiety disorder Dysthymia PAF (paroxysmal atrial fibrillation) New onset atrial fibrillation Prediabetes HTN (hypertension) Surgical History History of carpal tunnel release History of pituitary surgery H/O colonoscopy History of nasal surgery S/P cardiac cath History of hysterectomy Family History Mother Bladder cancer Social History Housing: House Are you a primary youth care professional to a significant other at home: No Do you presently have visiting nurse or other home services: No Alcohol intake: never Patient Tobacco Use Status: Former Tobacco user Tobacco use type: Cigarette e-Cigarette/Vaping Use: Never Used Advance Directives Date on File: 07/03/22 service: No Current occupational status: retired Cognitive needs: Yes (cane) Hearing needs: Yes (b/l hearing aids) Vision needs: Yes (rx glasses) Social History: 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
--- OUTSIDE RECORDS SUMMARY | 2025-05-24 17:06 | XMS_ITS | Clinical Summary ---
Author Organization [facility] Address [address] [place] [address] Phone Care Team Providers Care Menu Planner Name Role Phone Radu Welch MD Primary Care Provider [phone] Allergies No known active allergies Medications lisinopril [...] also be consided for placement of a driver guard. They can see their dentist or [...] average glucose, using the formula of the U4H-Iolgyxw Average Glucose study (ADAG), Diabetes Care, Vol.31,#8, [...] Most Recently Relevant to Health Maintenance Insurance [facility] Medicare [facility] Medicare [facility] Care Teams Menu Planner Relationship Specialty Start Date End Date Radu Welch MD [address] [place] [address] [address] [place] [facility] - General 10/10/20
--- OUTSIDE RECORDS SUMMARY | 2025-05-24 17:06 | XMS_ITS | Patient Health Record ---
Author Organization [facility] Address [address] [place] [address] Care Team Providers Care Supervisor Prep Name Role Phone Rebekah (RETIRED) Radu BLAS Primary Care Provide r Unavailable Good Berry Unavailable [phone] Allergies Allergen (clinical drug ingredient) Drug/Non Drug Allergy documented on EMR Reaction Allergy Type Onset Date Status nifedipine NIFEdipine Unknown Drug Allergy Activ e Results Component Value Reference Range Notes Glucose, Whole Blood Reviewed date:02/13/2025 06:25:53 PM Interpretation: Performing Lab:[facility], [address] [place] [id number] Notes/Report: Glucose, Whole Blood 127 60-115 mg/dL METER # : [id number] Pathology (Not yet reviewed by provider) Interpretation: Performing Lab:[facility], [address] [place] [phone] Notes/Report: Reason For Referral No Information Medications Medication [...] Problem Status W/U Status Risk Notes Problem 260032473 Encounter for screening for malignant neoplasm of colon (Z12.11) Active confirmed Problem 681931241 History of adenomatous polyp of colon (Z86.010) Active confirmed Problem 521012206 Bloating (R14.0) Active confirmed Problem Constipation (23318488) Constipation (K59.00) Active confirmed Problem 745778343 Flatulence (R14.3) Active confirmed Problem Anticoagulant long-term use (Z79.01) Active confirmed Problem 781617632696734 Pre-procedural examination (Z01.818) Active confirmed Vital Signs Blood pressure diastolic 00 mm Hg 10/27/2024 Height 66 in 10/27/2024 Blood pressure systolic 00 mm Hg 10/27/2024 Weight 233 lbs 10/27/2024 BMI 37.60 kg/m2 10/27/2024 Encounters Encounter Location Date Provider Diagnosis [facility] Outpatient [address] [place], [place] [id number] 02/12/2025 [facility] Colon cancer screeni ng Z12.11 ; Adenomatous colon polyp D12.6 ; Diverticulosis of large intestine without perforation or abscess without bleeding K57.30 and Other hemorrhoids K64.8 [facility] [address] [place] [address] 10/27/2024 Good Berry History of adenomato us polyp of colon Z86.010 ; Constipation K59.00 ; Encounter for screening for malignant neoplasm of colon Z12.11 ; Pre-procedural examination Z01.818 and Anticoagulant long-term use Z79.01 Assessments Encounter Date Diagnosis (ICD Code) Assessment Notes Treatment Notes Treatment Clinical Notes Section Notes 02/12/2025 Colon cancer screening (ICD-10 - Z12.11) 02/12/2025 Adenomatous colon polyp (ICD-10 - D12.6) 10/27/2024 History of adenomatous polyp of colon (ICD-10 - Z86.010) Overall, Josefina seems to be doing well from a [...] as a cause of her foot drop. Josefina was comfortable with this plan. Thank you again for allowing me to participate in Josefina's care. I shall continue to keep you advised of her progress. 10/27/2024 Constipation (ICD-10 - K59.00) Start taking 1/2 or 1 scoop of Miralax every day to help with constipation You can take 2 Metamucil fiber pills once or twice a day with a lot of water for the constipation Use the Senokot laxative as needed after 2-3 days of constipation Overall, Josefina seems to be doing well from a [...] as a cause of her foot drop. Josefina was comfortable with this plan. Thank you again for allowing me to participate in Josefina's care. I shall continue to keep you advised of her progress. 02/12/2025 Diverticulosis of large intestine without perforation or abscess without bleeding (ICD-10 - K57.30) 10/27/2024 Encounter for screening for malignant neoplasm of colon (ICD-10 - Z12.11) Stop Eliquis for 2 days before the colonoscopy Do not take Spironolactone the day before or on the day of the colonoscopy Overall, Josefina seems to be doing well from a [...] as a cause of her foot drop. Josefina was comfortable with this plan. Thank you again for allowing me to participate in Josefina's care. I shall continue to keep you advised of her progress. 02/12/2025 Other hemorrhoids (ICD-10 - K64.8) 10/27/2024 Pre-procedural examination (ICD-10 - Z01.818) Overall, Josefina seems to be doing well from a [...] as a cause of her foot drop. Josefina was comfortable with this plan. Thank you again for allowing me to participate in Josefina's care. I shall continue to keep you advised of her progress. 10/27/2024 Anticoagulant long-term use (ICD-10 - Z79.01) Overall, Josefina seems to be doing well from a [...] as a cause of her foot drop. Josefina was comfortable with this plan. Thank you again for allowing me to participate in Josefina's care. I shall continue to keep you advised of her progress. Plan Of Treatment Pending Test Test Name Order Date CELIAC PANEL #10 10/14/2012 ENDOMYSIAL IGA 10/14/2012 TRANSGLUTAMINASE AB IGA 10/14/2012 TRANSGLUTAMINASE AB IGG 10/14/2012 Pathology 02/12/2025 Future Test Test Name Order Date UPPER GI ENDOSCOPY 10/14/2012 COLONOSCOPY 10/14/2012 COLONOSCOPY 08/08/2018 COLONOSCOPY 10/27/2024 Insurance Providers Payer Name Payer Address Payer Phone Subscriber Number Group Number Insured Name Patient Relationship to Insured Coverage Start Date Coverage End Date MEDICARE OF [place] [address] [place] [address] [phone] [id number] JOSEFINA IBARRA Self - patient is the insured [facility] [address] [place], [place] [id number] [phone] [id number] JOSEFINA IBARRA Self - patient is the insured [employer] [address] [place] [address] [phone] [id number] JOSEFINA IBARRA Self - patient is the insured [...] the right D&C Pituitary gland surgery Appy [facility]
--- OUTSIDE RECORDS SUMMARY | 2025-05-24 17:06 | XMS_ITS | Patient Health Record ---
Author Organization [employer] [facility] Address [address] [place] [address] Care Team Providers Care Medical Asst Name Role Phone TONY GARCES M.D. Primary Care Provider Unavaila Felicia Pool Unavailable [phone] Reason For Referral No Information Medications Medication SIG (Take, Route, Fr equency, Duration) Notes Start Date End Date Status Simvastatin 20MG 1 ORAL daily; Duration: -3 [facility] 2011 Active Spironolactone 25MG 1 ORAL daily; Duration: -3 [facility] 05/2013 Active Terazol 7 0.4 % 1 application at bed time Vaginal Once a day; Duration: 7 day(s) 05/10/2015 Active LORazepam 0.5 MG 1 tablet as needed O rally Twice a day Active Atenolol 50MG 1 ORAL DAILY; Duration: -3 [facility] 2 Active cloNIDine HCl 0.1MG 1 ORAL twice daily; Duration: -3 [facility] 09/09/2012 Active Lisinopril 40MG 1 ORAL daily; Duration: -3 [facility] 012 Active PARoxetine HCl 40MG 1 ORAL daily; Duration: -3 [facility] 07/2012 Active Problems Problem Type SNOMED Code ICD Code Onset Dates Problem Status W/U Status Risk Notes Problem Hyperlipidemia (74306676) Other and unspecified hyperlipidemia (272.4) Active confirmed Major Problem Depressive disorder (10735389) Depressive disorder, not elsewhere classified (311) Active confirmed Major Problem Glaucoma (75565277) Unspecified glaucoma (365.9) Active confirmed Diag Problem Benign essential hypertension (7330272) Essential hypertension, benign (401.1) Active confirmed Major Problem Female genital organ symptoms (191860743) Other specified symptom associated with female genital organs (625.8) Active confirmed Major Problem Postmenopausal bleeding (59042123) Postmenopausal bleeding (627.1) Active confirmed Diag Problem Menopausal symptom (77402988) Symptomatic menopausal or female climacteric states (627.2) Active confirmed Major Problem Left lower quadrant pain (085306512) Abdominal pain, left lower quadrant (789.04) Active confirmed Diag Problem Gynecological examination normal (212050466746234) Routine gynecological examination (V72.31) Active confirmed Problem Screening for malignant neoplasm of colon (583280495) Special screening for malignant neoplasms, colon (V76.51) Active confirmed Major Plan Of Treatment Pending Test Test Name Order Date Bone Density 10/19/2016 Urine Culture and Sensitivity 05/10/2015 Insurance Providers Payer Name Payer Address Payer Phone Subscriber Number Group Number Insured Name Patient Relationship to Insured Coverage Start Date Coverage End Date [employer] [place] [address] [place] [address] [id number] JUNE ESTEVES Self - patient is the insured [facility] CARE LINK [address] [place], [place] [id number] JUNE ESTEVES Self - patient is the [...] TONSILLECTOMY APPENDECTOMY PITUITARY GLAND, TUMOR EXCISION [facility] Hospitalization History Reason Date(Month/Year) CHILD SEE SURGICAL HX
--- OUTSIDE RECORDS SUMMARY | 2025-05-24 17:06 | XMS_ITS | Patient Health Record ---
Author Organization [facility] Address [address] [place] [address] Care Team Providers Care Lead Warehouse Associate Name Role Phone Jaqueline No Primary Care Provider Jayashree Coleman Unavailable [phone] Allergies Allergen (clinical drug ingredient) Drug/Non Drug [...] Polyneuropathy due to type 2 diabetes mellitus (360750796) Type 2 diabetes mellitus with diabetic polyneuropathy (E11.42) Active confirmed Vital Signs Blood pressure diastolic 70 mm Hg 04/26/2025 Height 5ft6in in 04/26/2025 Blood pressure systolic 120 mm Hg 04/26/2025 Weight 240 lbs 04/26/2025 BMI 38.73 kg/m2 04/26/2025 Procedures Procedure Date Ordered Date Performed Result Body Sit e 41672-Jlzr Destruction, 1-14 06/22/2024 N/A 83256-CVFN SKIN LESIONS, 2 TO 4 06/22/2024 N/A M6091-PLIHTUGE DYSTROPHIC NAILS ANY # 06/22/2024 N/A 60258-Ylnk Destruction, 1-14 09/14/2024 N/A 29218-MHIQ SKIN LESIONS, 2 TO 4 09/14/2024 N/A T0959-BEOGHRTF DYSTROPHIC NAILS ANY # 09/14/2024 N/A 22521-Oqka Destruction, 1-14 01/18/2025 N/A 52428-NEAG SKIN LESIONS, 2 TO 4 01/18/2025 N/A I6608-RBPTRYSI DYSTROPHIC NAILS ANY # 01/18/2025 N/A 71695-Yybp Destruction, 1-14 04/26/2025 N/A 75429-Lckwgwvm Plate 04/26/2025 N/A 72762-Yadaugic Plate Each Additional 04/26/2025 N/A 63111-JEVD SKIN LESIONS, 2 TO 4 04/26/2025 N/A I5656-ZHVRLKJO DYSTROPHIC NAILS ANY # 04/26/2025 N/A Encounters Encounter Location Date Provider Diagnosis [facility] [address] [address] 06/22/2024 Jayashree Black Other viral warts B07.8 ; Other hammer toe(s) (acquired), right foot M20.41 ; Pain in left foot M79.672 ; Type 2 diabetes mellitus with diabetic polyneuropathy E11.42 ; Other hammer toe(s) (acquired), left foot M20.42 and Ingrown nail L60.[address] [facility] [address] 09/14/2024 Jayashree Fink Other viral warts B07.8 ; Right foot drop M21.371 ; Pain in left foot M79.672 ; Type 2 diabetes mellitus with diabetic polyneuropathy E11.42 ; Injury of right peroneal nerve, initial encounter S84.11XA and Neuritis M79.[address] [address] 01/18/2025 Jayashree Fink Other viral warts B07.8 ; Right foot drop M21.371 ; Pain in left foot M79.672 ; Type 2 diabetes mellitus with diabetic polyneuropathy E11.42 and Neuritis M79.[address] [address] 04/26/2025 Jayashree Fink Other viral warts B07.8 ; Pain in left foot M79.672 ; Type 2 diabetes mellitus with diabetic polyneuropathy E11.42 and Ingrown nail L60.[address] [address] 09/14/2024 Jayashreelibertad Fink [facility] [address] 11/18/[address] [address] 12/11/2024 Jayashree Fink Assessments Encounter Date Diagnosis [...] Treatment Pending Test Test Name Order Date 26419-Tlzn Destruction, -14 07/20/2019 93970-Suol Destruction, -14 01/18/2020 57904-Ogur Destruction, -04/18/2020 02723-Mmip Destruction, -14 10/13/2020 70401-Fwza Destruction, -01/12/2021 46470-Tlto Destruction, -14 08/31/2021 42979-Sovw Destruction, -14 11/28/2021 97851-Pxjw Destruction, -14 03/29/2022 98267-Krxg Destruction, -14 07/02/2022 97650-Cout Destruction, -14 10/11/2022 81949-Tshm Destruction, 1-14 01/17/2023 38838-Plcp Destruction, 1-14 04/25/2023 46576-Uxek Destruction, 1-14 08/05/2023 03262-Vdlw Destruction, 1-14 12/23/2023 84658-Bqhv Destruction, 1-14 03/16/2024 57335-Qufz Destruction, 1-14 06/22/2024 04981-Nkpr Destruction, 1-14 09/14/2024 50047-Kbnn Destruction, 1-14 01/18/2025 42483-Peat Destruction, 1-14 04/26/2025 90535-Vvpg Destruction, -14 07/07/2020 09134-Ojnn Destruction, -14 05/15/2021 67077-Rifeoxzz Plate 05/15/2021 56653-Rjbcfcie Plate 04/26/2025 62011-Hvyjmnuh Plate 03/16/2024 91090-Fyqsfrhw Plate 08/05/2023 55142-Zjecqmmx Plate 01/17/2023 39247-Seguvfio Plate 03/29/2022 11340-Yzhyozgy Plate 11/28/2021 79103-Suqamswv Plate 08/31/2021 72552-Pjdersze Plate 01/12/2021 40021-Xlxjpuds Plate 04/18/2020 45012-Aizmdjlb Plate Each Additional 74757-Nnetypch Plate Each Additional 86094-UTN 11/21/2023 68406- Debride <25 sq cm 12/23/2023 86806-LPOAASS SKIN/TISSUE 12/05/2023 80144-IGGH SKIN LESIONS, 2 TO 4 12/05/19 96274-ASHA SKIN LESIONS, 2 TO 4 12/23/19 88460-WLJN SKIN LESIONS, 2 TO 4 03/16/20 18119-FNAN SKIN LESIONS, 2 TO 4 04/25/20 35298-XAXY SKIN LESIONS, 2 TO 4 08/05/20 99138-BCFJ SKIN LESIONS, 2 TO 4 06/22/20 26359-DUKB SKIN LESIONS, 2 TO 4 01/19/20 24275-YPWM SKIN LESIONS, 2 TO 4 09/14/20 56664-USBB SKIN LESIONS, 2 TO 4 04/26/20 95346-FDPE SKIN LESIONS, 2 TO 4 05/15/20 08509-SDWH SKIN LESIONS, 2 TO 4 07/07/20 24909-VQWU SKIN LESIONS, 2 TO 4 04/18/20 69550-HUXD SKIN LESIONS, 2 TO 4 01/18/20 93790-KNSZ SKIN LESIONS, 2 TO 4 07/20/20 94026-YBMP SKIN LESIONS, 2 TO 4 10/13/19 09145-BKAF SKIN LESIONS, 2 TO 4 01/13/20 32240-XMMK SKIN LESIONS, 2 TO 4 08/31/20 17417-SSAV SKIN LESIONS, 2 TO 4 11/29/19 60979-XKXH SKIN LESIONS, 2 TO 4 03/29/20 69992-OPIQ SKIN LESIONS, 2 TO 4 07/02/20 41311-NZRW SKIN LESIONS, 2 TO 4 01/18/20 23059-FIKQ SKIN LESIONS, 2 TO 4 10/11/19 N8240-MSTWPLBS DYSTROPHIC NAILS ANY # A5772-FNFFPSQT DYSTROPHIC NAILS ANY # A3741-MYZIXXBZ DYSTROPHIC NAILS ANY # R8806-NDGMHFKU DYSTROPHIC NAILS ANY # J7686-NVMJUUEB DYSTROPHIC NAILS ANY # E1996-CQMZIRMI DYSTROPHIC NAILS ANY # P4820-ZSVBZGQC DYSTROPHIC NAILS ANY # L7042-BTPVFGLP DYSTROPHIC NAILS ANY # M7870-LYDKYORA DYSTROPHIC NAILS ANY # G1290-UJPSOICF DYSTROPHIC NAILS ANY J3762-LHWRGIOI DYSTROPHIC NAILS ANY # B4783-KFLYLUKW DYSTROPHIC NAILS ANY # X8719-PNSNQDST DYSTROPHIC NAILS ANY # E3322-PAJALHMV DYSTROPHIC NAILS ANY # O8926-MFKKXDDL DYSTROPHIC NAILS ANY # Q0402-MPTDJUMN DYSTROPHIC NAILS ANY # B7663-AXZSDTMD DYSTROPHIC NAILS ANY # Q1340-UOOKQRXT DYSTROPHIC NAILS ANY # T5154-ZGLGXKUP DYSTROPHIC NAILS ANY # F0673-QUEXVXMC DYSTROPHIC NAILS ANY # V9473-CABKQBHZ DYSTROPHIC NAILS ANY # L0404-RDNRXQCO DYSTROPHIC NAILS ANY # Next Appt Details Provider Name:Jayashree Fink , 07/29/2025 08:30:00 AM, [address] [place], [address], Insurance Providers Payer Name Payer Address Payer Phone Subscriber Number Group Number Insured Name Patient Relationship to Insured Coverage Start Date Coverage End Date Medicare [facility] [address] [place] [address] [id number] Josefina Wilde Self - patient is the insured [facility] [address] [place] [address] [id number] Josefina Wilde Self - patient is the insured [employer] [address] [place] [address] [id number] MAINE WILDE Spouse - patient is the [...] surgery 06/25/22 Hospitalization History Reason Date(Month/Year) [place] [facility] 08/23 [facility]- 3 days sinus surgery complication uncontrollable nose bleed 2021 [facility] covid 09/2021
== END 2025-05-21 12:00 | disposition home or self-care (01) ==
PROVIDERS: PCP Internal Medicine; Visit Provider Psychiatry & Neurology Psychiatry
DX: F34.1 Dysthymic disorder (principal); F41.1 Generalized anxiety disorder; F41.0 Panic disorder [episodic paroxysmal anxiety]
CPT/HCPCS: 90833; 99213

== ENCOUNTER → 2025-05-21 11:30 | Outpatient (BNVA) | payer MEDICARE, BC, OTHER, SELFPAY | PROVIDERS: PCP Internal Medicine; Visit Provider Psychiatry & Neurology Psychiatry | DX: F34.1 Dysthymic disorder (principal); F41.1 Generalized anxiety disorder; F41.0 Panic disorder [episodic paroxysmal anxiety] | CPT/HCPCS: 99212 ==

== ENCOUNTER 2025-05-27 08:45 | Outpatient (REF) | payer MEDICARE, BC, OTHER, SELFPAY ==
--- OUTSIDE RECORDS SUMMARY | 2024-12-17 05:15 | XMS_ITS ---
Author Organization [facility] Address [address] [place] [address] Care Team Providers Care Bisque Grader Name Role Phone Jaqueline No Primary Care Provider Jayashree Coleman [phone] Encounters Encounter Location Date Provider Diagnosis [address] [address] 12/17/2024 Jayashree Fink Plan Of Treatment Next Appt Details Provider Name:Jayashree Fink , 07/29/2025 08:30:00 AM, [address] [place], [address], Progress Notes * Alivia WILDEOB:03/1955 (69 yo F)Acc No.[id number]:12/17/2024 Progress Note Patient: Ceferino MOSERine Provider: Anat Fink DPM :1955 A ge:69 Y S ex:Female Date:12/17/2024 Address:[address] [place] [address], [place]ert[place] [facility] Pcp:Jaqueline No Subjective: * Chief Complaints: * * Medical History: Objective: * Vitals: Assessment: Plan: * Treatment: * Images: * The named appointment provid er may or may not be the originator of this progress note, and it is not deemed complete until electronically signed by the appointment provider. Sign off status: Pending * Provider: Anat Fink DPM Date: 0 12/17/2024 Generated for Kun pelayo/Isaiah/Alok on: 0 05/27/2025 09:31 AM EDT
--- OUTSIDE RECORDS SUMMARY | 2025-02-12 09:00 | XMS_ITS ---
Author Organization [facility] Address [address] [place] [phone] Care Team Providers Care Tractor Operator Laser Leveling Name Role Phone Rebekah (RETIRED) Radu BLAS Primary Care Provide r Good Cordero [phone] REASON FOR VISIT screening,hx polyps Encounters Encounter Location Date Provider Diagnosis [facility] [place] [address] [place] [id number] 02/12/2025 Good Berry Colon cancer scree kristen [...] JUNE IBARRA MDOB: 1955 (69 yo F)Acc No.[id number]:02/12/2025 COLON WITH MAC Patient: JUNE CALLEJAS Provider: Vince Berry MD :1955 A ge:69 Y S ex:Female Date:02/12/2025 Address:[address] [place] [address], [id number] Pcp:Radu Welch (RETIRED )MD Subjective: * Chief [...] 02/12/2025 Generated for Kun pelayo/Isaiah/Ambaritting on: 0 05/27/2025 09:30 AM EDT
--- OUTSIDE RECORDS SUMMARY | 2025-05-27 09:30 | XMS_ITS | Clinical Summary ---
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 They can see their dentist or an [...] average glucose, using the formula of the L8Q-Vkbcbcy Average Glucose study (ADAG), Diabetes Care, Vol.31,#8, [...] Most Recently Relevant to Health Maintenance Insurance [facility] Medicare [facility] Medicare [facility] Care Teams Rehabilitation Construction Specialist Relationship Specialty Start Date End Date Radu Welch MD [address] [place] [address] [address] [place] [facility] - General 10/10/20
--- OUTSIDE RECORDS SUMMARY | 2025-05-27 09:31 | XMS_ITS | Patient Health Record ---
Author Organization [employer] [facility] Address [address] [place] [address] Care Team Providers Care Voice Coach Name Role Phone TONY GARCES M.D. Primary Care Provider Unavaila Felicia Pool Unavailable [phone] Reason For Referral No Information Medications Medication SIG (Take, Route, Fr equency, Duration) Notes Start Date End Date Status Simvastatin 20MG 1 ORAL daily; Duration: -3 [facility] 2011 Active Spironolactone 25MG 1 ORAL daily; Duration: -3 [facility] 05/2013 Active Terazol 7 0.4 % 1 application at bed time Vaginal Once a day; Duration: 7 day(s) 05/10/2015 Active LORazepam 0.5 MG 1 tablet as needed O rally Twice a day Active Atenolol 50MG 1 ORAL DAILY; Duration: -3 [facility] 2 Active cloNIDine HCl 0.1MG 1 ORAL twice daily; Duration: -3 [facility] 09/09/2012 Active Lisinopril 40MG 1 ORAL daily; Duration: -3 [facility] 012 Active PARoxetine HCl 40MG 1 ORAL daily; Duration: -3 [facility] 07/2012 Active Problems Problem Type SNOMED Code ICD Code Onset Dates Problem Status W/U Status Risk Notes Problem Hyperlipidemia (42351628) Other and unspecified hyperlipidemia (272.4) Active confirmed Major Problem Depressive disorder (07931306) Depressive disorder, not elsewhere classified (311) Active confirmed Major Problem Glaucoma (58901731) Unspecified glaucoma (365.9) Active confirmed Diag Problem Benign essential hypertension (3310148) Essential hypertension, benign (401.1) Active confirmed Major Problem Female genital organ symptoms (901981733) Other specified symptom associated with female genital organs (625.8) Active confirmed Major Problem Postmenopausal bleeding (54079273) Postmenopausal bleeding (627.1) Active confirmed Diag Problem Menopausal symptom (27035959) Symptomatic menopausal or female climacteric states (627.2) Active confirmed Major Problem Left lower quadrant pain (181473556) Abdominal pain, left lower quadrant (789.04) Active confirmed Diag Problem Gynecological examination normal (280931809291510) Routine gynecological examination (V72.31) Active confirmed Problem Screening for malignant neoplasm of colon (322156343) Special screening for malignant neoplasms, colon (V76.51) Active confirmed Major Plan Of Treatment Pending Test Test Name Order Date Bone Density 10/19/2016 Urine Culture and Sensitivity 05/10/2015 Insurance Providers Payer Name Payer Address Payer Phone Subscriber Number Group Number Insured Name Patient Relationship to Insured Coverage Start Date Coverage End Date [employer] [place] [address] [place] [address] [id number] JUNE ESTEVES Self - patient is the insured [facility] CARE LINK [address] [place], [place] [id number] [phone] [id number] JUNE ESTEVES Self - patient is the [...]
--- OUTSIDE RECORDS SUMMARY | 2025-05-27 09:31 | XMS_ITS | Patient Health Record ---
Author Organization [facility] Address [address] [place] [address] Care Team Providers Care Gore Maker Name Role Phone Jaqueline No Primary Care Provider Jayashree Coleman Unavailable [phone] Allergies Allergen (clinical drug ingredient) Drug/Non Drug [...] Problem Status W/U Status Risk Notes Problem Type 2 diabetes mellitus with diabetic polyneuropathy (E11.42) Active confirmed Vital Signs Blood pressure diastolic 70 mm Hg 04/26/2025 Height 5ft6in in 04/26/2025 Blood pressure systolic 120 mm Hg 04/26/2025 Weight 240 lbs 04/26/2025 BMI 38.73 kg/m2 04/26/2025 Procedures Procedure Date Ordered Date Performed Result Body Sit e 76855-Fhne Destruction, 1-14 06/22/2024 N/A 06480-WCBP SKIN LESIONS, 2 TO 4 06/22/2024 N/A I9882-TQNZIWPC DYSTROPHIC NAILS ANY # 06/22/2024 N/A 31049-Lwkv Destruction, 1-14 09/14/2024 N/A 95994-NPLR SKIN LESIONS, 2 TO 4 09/14/2024 N/A T8761-DQTXHSZG DYSTROPHIC NAILS ANY # 09/14/2024 N/A 26811-Xdkw Destruction, 1-14 01/18/2025 N/A 60038-BYUX SKIN LESIONS, 2 TO 4 01/18/2025 N/A C4054-VLONFXBP DYSTROPHIC NAILS ANY # 01/18/2025 N/A 53060-Nggd Destruction, 1-14 04/26/2025 N/A 40194-Gvayniik Plate 04/26/2025 N/A 92530-Ybepjirf Plate Each Additional 04/26/2025 N/A 94070-XUTY SKIN LESIONS, 2 TO 4 04/26/2025 N/A Y5900-RWGMNVGV DYSTROPHIC NAILS ANY # 04/26/2025 N/A Encounters Encounter Location Date Provider Diagnosis [facility] [address] [address] 06/22/2024 Jayashree Black Other viral warts B07.8 ; Other hammer toe(s) (acquired), right foot M20.41 ; Pain in left foot M79.672 ; Type 2 diabetes mellitus with diabetic polyneuropathy E11.42 ; Other hammer toe(s) (acquired), left foot M20.42 and Ingrown nail L60.[facility] [address] 09/14/2024 Jayashree Black Other viral warts B07.8 ; Right foot drop M21.371 ; Pain in left foot M79.672 ; Type 2 diabetes mellitus with diabetic polyneuropathy E11.42 ; Injury of right peroneal nerve, initial encounter S84.11XA and Neuritis M79.[address] [address] 01/18/2025 Jayashree Fink Other viral warts B07.8 ; Right foot drop M21.371 ; Pain in left foot M79.672 ; Type 2 diabetes mellitus with diabetic polyneuropathy E11.42 and Neuritis M79.[address] [address] 04/26/2025 Jayashree Fink Other viral warts B07.8 ; Pain in left foot M79.672 ; Type 2 diabetes mellitus with diabetic polyneuropathy E11.42 and Ingrown nail L60.[address] [address] 09/14/2024 Jayashree Fink [address] [address] 11/18/2024 Jayashree Fink [address] [address] 12/11/2024 Jayashree Fink Assessments Encounter Date Diagnosis [...] Treatment Pending Test Test Name Order Date 88504-Nnsh Destruction, -14 07/20/2019 12273-Ebgs Destruction, -14 01/18/2020 32616-Cnvh Destruction, -14 04/18/2020 10141-Bdmp Destruction, -14 07/07/2020 69510-Exen Destruction, -14 10/13/2020 93505-Nrkg Destruction, -14 01/12/2021 51370-Thvw Destruction, -14 05/15/2021 47282-Fsvq Destruction, -14 08/31/2021 61601-Hixe Destruction, -14 11/28/2021 22444-Rowe Destruction, -14 03/29/2022 68913-Juij Destruction, -14 07/02/2022 01084-Dzik Destruction, 1-14 10/11/2022 08481-Jxtk Destruction, 1-14 04/25/2023 11658-Nsug Destruction, 1-14 08/05/2023 36558-Xvxz Destruction, 1-14 01/17/2023 43319-Remj Destruction, 1-14 12/23/2023 90955-Xlwb Destruction, 1-14 03/16/2024 88034-Zjdh Destruction, 1-14 06/22/2024 97378-Weav Destruction, 1-14 09/14/2024 28196-Jfet Destruction, 1-14 01/18/2025 77961-Xovp Destruction, 1-14 04/26/2025 80453-Qujemqif Plate 04/26/2025 38392-Wjvyuydk Plate 03/16/2024 68193-Ylrmnryf Plate 08/05/2023 65096-Dhnvuykk Plate 01/17/2023 88258-Hjqpnbkg Plate 03/29/2022 52544-Imgkdfsy Plate 11/28/2021 98465-Zmhtgvaq Plate 08/31/2021 47052-Poobofqs Plate 05/15/2021 55640-Ttixkvba Plate 01/12/2021 08759-Ejrirmyt Plate 04/18/2020 49026-Kxmhyslf Plate Each Additional 47051-Xstgvyry Plate Each Additional 99726-NMB 11/21/2023 54335- Debride <25 sq cm 12/23/2023 01516-SATPUDO SKIN/TISSUE 12/05/2023 73367-BDKQ SKIN LESIONS, 2 TO 4 12/05/19 15313-EXPC SKIN LESIONS, 2 TO 4 08/05/20 75683-PCMG SKIN LESIONS, 2 TO 4 01/18/20 10216-CWJG SKIN LESIONS, 2 TO 4 10/11/19 82585-UASR SKIN LESIONS, 2 TO 4 07/02/20 99079-USOB SKIN LESIONS, 2 TO 4 12/23/19 92167-IPTN SKIN LESIONS, 2 TO 4 04/25/20 44602-NTIB SKIN LESIONS, 2 TO 4 03/16/20 21829-HDSF SKIN LESIONS, 2 TO 4 04/26/20 25728-JPPD SKIN LESIONS, 2 TO 4 01/19/20 66832-ZQUO SKIN LESIONS, 2 TO 4 09/14/20 24 97390-RFWW SKIN LESIONS, 2 TO 4 06/22/20 24 60253-JOTR SKIN LESIONS, 2 TO 4 04/18/20 58590-WZBJ SKIN LESIONS, 2 TO 4 01/18/20 41081-HYYK SKIN LESIONS, 2 TO 4 07/20/20 90495-DWOW SKIN LESIONS, 2 TO 4 07/07/20 04546-EAZS SKIN LESIONS, 2 TO 4 10/13/19 90199-BXSG SKIN LESIONS, 2 TO 4 01/13/20 27343-WQTK SKIN LESIONS, 2 TO 4 05/15/20 41440-XERC SKIN LESIONS, 2 TO 4 08/31/20 04420-JRCO SKIN LESIONS, 2 TO 4 11/29/19 27387-MFVG SKIN LESIONS, 2 TO 4 03/29/20 I7065-OBFWNWFK DYSTROPHIC NAILS ANY # I5381-WRSOKBLZ DYSTROPHIC NAILS ANY # B2064-OWIGCOIO DYSTROPHIC NAILS ANY # P8690-DICJSTKR DYSTROPHIC NAILS ANY # L0655-PVPZNLIU DYSTROPHIC NAILS ANY # I4192-MMNZCYNT DYSTROPHIC NAILS ANY # Y9094-WCFKVJKK DYSTROPHIC NAILS ANY # G7067-EHZVYUAP DYSTROPHIC NAILS ANY # H5404-DDDVRMCJ DYSTROPHIC NAILS ANY # Q8054-WYMOQGGH DYSTROPHIC NAILS ANY Z1404-THHBBIJT DYSTROPHIC NAILS ANY # F3234-UGAFDPHR DYSTROPHIC NAILS ANY # V4824-VPVXPGWZ DYSTROPHIC NAILS ANY # M7289-LLOJPOBI DYSTROPHIC NAILS ANY # H1549-TZWHCPRQ DYSTROPHIC NAILS ANY # W6049-DBWOSBFJ DYSTROPHIC NAILS ANY # K8745-AFSMITSA DYSTROPHIC NAILS ANY # U1231-QDMCVVRU DYSTROPHIC NAILS ANY # A8406-NXNFLSRD DYSTROPHIC NAILS ANY # E5263-IXETBKNA DYSTROPHIC NAILS ANY # N4292-YXUHVHXY DYSTROPHIC NAILS ANY # K5666-NFPHNFAH DYSTROPHIC NAILS ANY # Next Appt Details Provider Name:Jayashree Fink , 07/29/2025 08:30:00 AM, [address] [place], [address], Insurance Providers Payer Name Payer Address Payer Phone Subscriber Number Group Number Insured Name Patient Relationship to Insured Coverage Start Date Coverage End Date Medicare [facility] [address] [place] [phone] [id number] Josefina Wilde Self - patient is the insured [facility] [address] [place] [address] [id number] Josefina Wilde Self - patient is the insured [employer] [address] [place] [phone] [id number] MAINE WILDE Spouse - patient is the [...] surgery 06/25/22 Hospitalization History Reason Date(Month/Year) [place] [facility] [place] [facility]- 3 days sinus surgery complication uncontrollable nose bleed 2021 [facility] [place]
--- OUTSIDE RECORDS SUMMARY | 2025-05-27 09:31 | XMS_ITS | Patient Health Record ---
Author Organization [facility] Address [address] [place] [address] Care Team Providers Care Pipeline Superintendent Name Role Phone Rebekah (RETIRED) Radu BLAS Primary Care Provide r Unavailable [facility] Unavailable [phone] Allergies Allergen (clinical drug ingredient) Drug/Non Drug Allergy documented on EMR Reaction Allergy Type Onset Date Status nifedipine NIFEdipine Unknown Drug Allergy Activ e Results Component Value Reference Range Notes Glucose, Whole Blood Reviewed date:02/13/2025 06:25:53 PM Interpretation: Performing Lab:[facility], [address] [place] [id number] Notes/Report: Glucose, Whole Blood 127 60-115 mg/dL METER # : [id number] Pathology (Not yet reviewed by provider) Interpretation: Performing Lab:[facility], [address] [place] [phone] Notes/Report: Reason For Referral No Information Medications [...] Problem Status W/U Status Risk Notes Problem 116629320 Encounter for screening for malignant neoplasm of colon (Z12.11) Active confirmed Problem 742862812 History of adenomatous polyp of colon (Z86.010) Active confirmed Problem 222368720 Bloating (R14.0) Active confirmed Problem Constipation (36249119) Constipation (K59.00) Active confirmed Problem 007212493 Flatulence (R14.3) Active confirmed Problem Long-term current use of anticoagulant (682242299) Anticoagulant long-term use (Z79.01) Active confirmed Problem 452777837101993 Pre-procedural examination (Z01.818) Active confirmed Vital Signs Blood pressure diastolic 00 mm Hg 10/27/2024 Height 66 in 10/27/2024 Blood pressure systolic 00 mm Hg 10/27/2024 Weight 233 lbs 10/27/2024 BMI 37.60 kg/m2 10/27/2024 Encounters Encounter Location Date Provider Diagnosis [facility] [place] [address], [place] [phone] 02/12/2025 [facility] Colon cancer screeni ng Z12.11 ; Adenomatous colon polyp D12.6 ; Diverticulosis of large intestine without perforation or abscess without bleeding K57.30 and Other hemorrhoids K64.8 [facility] [address] [place] [address] 10/27/2024 [facility] History of adenomato us [...] [place] [address] [place] [address] [id number] JOSEFINA IBARRA Self - patient is the insured [facility] [address] [place], [place] [id number] [phone] [id number] JOSEFINA IBARRA Self - patient is the insured [employer] [address] [place] [address] [phone] [id number] CECY IBARRAINE Self - patient is the insured Medical [...] the right D&C Pituitary gland surgery Appdash CRONINH
== END 2025-05-27 08:46 | disposition home or self-care (01) ==
LOC: HO.LAB 08:45
PROVIDERS: Absent Provider Internal Medicine Nephrology; PCP Internal Medicine; Visit Provider Internal Medicine
DX: Z13.89 Encounter for screening for other disorder (principal)

== ENCOUNTER 2025-05-28 08:58 | Outpatient (REF) | payer MEDICARE, BC, OTHER, SELFPAY ==
--- OUTSIDE RECORDS SUMMARY | 2024-09-17 04:30 | XMS_ITS ---
Author Organization [facility] Address [address] [place] [address] Care Team Providers Care Fisher Crab Name Role Phone Jaqueline No Primary Care Provider Jayashree Coleman [phone] REASON FOR VISIT Seen Sooner Encounters Encounter Location Date Provider Diagnosis [address] [address] 09/17/2024 Jayashree Fink Plan Of Treatment Next Appt Details Provider Name:Jayashree Fink , 07/29/2025 08:30:00 AM, [address] [place], [address], Progress Notes * Alivia WILDEOB:03/1955 (69 yo F)Acc No.[id number]:09/17/2024 Progress Note Patient: Ceferino MOSERine Provider: Anat Fink DPM :1955 A ge:69 Y S ex:Female Date:09/17/2024 Address:[address] [place] [address], [place] [address] [facility] Pcp:Jaqueline No Subjective: * Chief Complaints: * [...] 1 11/18/2023 Generated for Kun pelayo/Isaiah/Alok on: 0 05/28/2025 09:50 AM EDT
--- OUTSIDE RECORDS SUMMARY | 2024-10-12 05:00 | XMS_ITS ---
Author Organization [facility] Address [address] [place] [address] Care Team Providers Care Drum Plater Name Role Phone Jaqueline No Primary Care Provider Jayashree Coleman [phone] REASON FOR VISIT Seen Sooner Encounters Encounter Location Date Provider Diagnosis [address] [address] 10/12/2024 Jayashree Fink Plan Of Treatment Next Appt Details Provider Name:Jayashree Fink , 07/29/2025 08:30:00 AM, [address] [place], [address], Progress Notes * Alivia WILDEOB:03/1955 (69 yo F)Acc No.[id number]:10/12/2024 Progress Note Patient: Ceferino MOSERine Provider: Anat Fink DPM :1955 A ge:69 Y S ex:Female Date:10/12/2024 Address:[address] [place] [address], [place] [facility] Pcp:Jaqueline No Subjective: * Chief Complaints: * [...] 0 10/12/2024 Generated for Kun pelayo/Isaiah/Alok on: 0 05/28/2025 09:50 AM EDT
--- OUTSIDE RECORDS SUMMARY | 2024-12-17 05:15 | XMS_ITS ---
Author Organization [facility] Address [address] [place] [address] Care Team Providers Care Set Up Operator Tool Name Role Phone Jaqueline No Primary Care Provider Jayashree Coleman [phone] Encounters Encounter Location Date Provider Diagnosis [address] [address] 12/17/2024 Jayashree Fink Plan Of Treatment Next Appt Details Provider Name:Jayashree Fink , 07/29/2025 08:30:00 AM, [address] [place], [address], Progress Notes * Alivia WILDEOB:03/1955 (69 yo F)Acc No.[id number]:12/17/2024 Progress Note Patient: Ceferino MOSERine Provider: Anat Fink DPM :1955 A ge:69 Y S ex:Female Date:12/17/2024 Address:[address] [place] [address], [place] [facility] Pcp:Jaqueline No Subjective: * Chief Complaints: * [...] 12/17/2024 Generated for Kun pelayo/Isaiah/Alok on: 0 05/28/2025 09:51 AM EDT
--- OUTSIDE RECORDS SUMMARY | 2025-02-12 09:00 | XMS_ITS ---
Author Organization [facility] Address [address] [place] [phone] Care Team Providers Care Industry Segment Specialist Name Role Phone Rebekah (RETIRED) Radu BLAS Primary Care Provide r Good Cordero [phone] REASON FOR VISIT screening,hx polyps Encounters Encounter Location Date Provider Diagnosis [facility] [place] [address] [place] [id number] 02/12/2025 Good Berry Colon cancer scree kristen [...] JUNE IBARRA MDOB: 1955 (69 yo F)Acc No.[id number]:02/12/2025 COLON WITH MAC Patient: JUNE CALLEJAS Provider: Vince Berry MD :1955 A ge:69 Y S ex:Female Date:02/12/2025 Address:[address] [place] [address], [id number] Pcp:Radu Welch (RETIRED )MD Subjective: * Chief [...] 02/12/2025 Generated for Kun pelayo/Isaiah/Ambaritting on: 0 05/28/2025 09:50 AM EDT
--- OUTSIDE RECORDS SUMMARY | 2025-05-28 09:50 | XMS_ITS | Clinical Summary ---
Author Organization [facility] Address [address] [place] [address] Phone Care Team Providers Care Proposition Player Name Role Phone Radu Welch MD Primary Care Provider [phone] Allergies No known active allergies Medications lisinopril [...] also be consided for placement of a deputy sheriff building guard. They can see their dentist or [...] average glucose, using the formula of the I2W-Pkipqvm Average Glucose study (ADAG), Diabetes Care, Vol.31,#8, [...] Relevant to Health Maintenance Insurance [facility] Medicare [facility] Medicare [facility] Care Teams Proposition Player Relationship Specialty Start Date End Date Radu Welch MD [address] [place] [address] DRIVE [address] [place] [facility] - General 10/10/20
--- OUTSIDE RECORDS SUMMARY | 2025-05-28 09:50 | XMS_ITS | Patient Health Record ---
Author Organization [facility] Address [address] [place] [address] Care Team Providers Care Senior Technical Specialist Name Role Phone Jaqueline No Primary Care Provider Jayashree Coleman Unavailable [phone] Allergies Allergen (clinical drug ingredient) Drug/Non Drug [...] Polyneuropathy due to type 2 diabetes mellitus (297231477) Type 2 diabetes mellitus with diabetic polyneuropathy (E11.42) Active confirmed Vital Signs Blood pressure diastolic 70 mm Hg 04/26/2025 Height 5ft6in in 04/26/2025 Blood pressure systolic 120 mm Hg 04/26/2025 Weight 240 lbs 04/26/2025 BMI 38.73 kg/m2 04/26/2025 Procedures Procedure Date Ordered Date Performed Result Body Sit e 08463-Uxjp Destruction, 1-14 06/22/2024 N/A 24017-IGUM SKIN LESIONS, 2 TO 4 06/22/2024 N/A M8806-QYTTQPQH DYSTROPHIC NAILS ANY # 06/22/2024 N/A 97530-Xcoh Destruction, 1-14 09/14/2024 N/A 05384-IVKO SKIN LESIONS, 2 TO 4 09/14/2024 N/A E2039-VETQJDPP DYSTROPHIC NAILS ANY # 09/14/2024 N/A 30563-Slkd Destruction, 1-14 01/18/2025 N/A 41463-CAEM SKIN LESIONS, 2 TO 4 01/18/2025 N/A D4965-JFQPYXEK DYSTROPHIC NAILS ANY # 01/18/2025 N/A 76697-Noim Destruction, 1-14 04/26/2025 N/A 96871-Finbwvpg Plate 04/26/2025 N/A 47518-Wrftfaua Plate Each Additional 04/26/2025 N/A 16518-LUZN SKIN LESIONS, 2 TO 4 04/26/2025 N/A G3744-FVSJCNTM DYSTROPHIC NAILS ANY # 04/26/2025 N/A Encounters Encounter Location Date Provider Diagnosis [facility] [address] [address] 06/22/2024 Jayashree Black Other viral warts B07.8 ; Other hammer toe(s) (acquired), right foot M20.41 ; Pain in left foot M79.672 ; Type 2 diabetes mellitus with diabetic polyneuropathy E11.42 ; Other hammer toe(s) (acquired), left foot M20.42 and Ingrown nail L60.[address] [facility] [address] 09/14/2024 Jayashree Fink Other viral warts B07.8 ; Right foot drop M21.371 ; Pain in left foot M79.672 ; Type 2 diabetes mellitus with diabetic polyneuropathy E11.42 ; Injury of right peroneal nerve, initial encounter S84.11XA and Neuritis M79.[address] [address] 01/18/2025 Jayashree Fink Other viral warts B07.8 ; Right foot drop M21.371 ; Pain in left foot M79.672 ; Type 2 diabetes mellitus with diabetic polyneuropathy E11.42 and Neuritis M79.[address] [address] 04/26/2025 Jayashree Fink Other viral warts B07.8 ; Pain in left foot M79.672 ; Type 2 diabetes mellitus with diabetic polyneuropathy E11.42 and Ingrown nail L60.[address] [address] 09/14/2024 Jayashreelibertad Fink [facility] [address] 11/18/[address] [address] 12/11/2024 Jayashree Fink Assessments Encounter Date Diagnosis [...] Treatment Pending Test Test Name Order Date 69039-Bodq Destruction, -14 07/20/2019 36674-Qzkp Destruction, -14 01/18/2020 70420-Qoyl Destruction, -04/18/2020 94442-Cxad Destruction, -07/07/2020 03159-Fclv Destruction, -14 10/13/2020 60888-Rypo Destruction, -14 01/12/2021 08035-Nkhk Destruction, -14 05/15/2021 36214-Piym Destruction, -14 08/31/2021 77154-Xelp Destruction, -14 11/28/2021 77431-Pbls Destruction, 1-14 03/29/2022 97844-Tihz Destruction, 1-14 07/02/2022 80224-Kerg Destruction, 1-14 10/11/2022 36286-Digt Destruction, 1-14 04/25/2023 94821-Vwph Destruction, 1-14 08/05/2023 82899-Yqva Destruction, 1-14 01/17/2023 82017-Vwdc Destruction, 1-14 12/23/2023 21507-Ekyx Destruction, 1-14 03/16/2024 51241-Czyi Destruction, 1-14 06/22/2024 27166-Flmy Destruction, 1-14 09/14/2024 97908-Iavg Destruction, 1-14 01/18/2025 23229-Ourg Destruction, 1-14 04/26/2025 22118-Buqoruze Plate 04/26/2025 20816-Rrjbihad Plate 03/16/2024 92302-Lwtkqlrj Plate 08/05/2023 05784-Ybkprnrp Plate 01/17/2023 61188-Xqtwkmao Plate 03/29/2022 90823-Xxwcibap Plate 11/28/2021 54643-Mgljmjem Plate 08/31/2021 48219-Eeqhdbwr Plate 05/15/2021 68712-Kgxrbtoz Plate 01/12/2021 87331-Apexhsxy Plate 04/18/2020 01140-Xwygwcbz Plate Each Additional 15554-Feswpicn Plate Each Additional 08209-WUP 11/21/2023 33175- Debride <25 sq cm 12/23/2023 88147-IZFLKAW SKIN/TISSUE 12/05/2023 99558-NDGH SKIN LESIONS, 2 TO 4 12/05/19 54290-NEKO SKIN LESIONS, 2 TO 4 08/05/20 22264-JKKC SKIN LESIONS, 2 TO 4 01/18/20 02566-WSGH SKIN LESIONS, 2 TO 4 10/11/19 03502-HWQL SKIN LESIONS, 2 TO 4 07/02/20 00929-GGUO SKIN LESIONS, 2 TO 4 12/23/19 12381-WNON SKIN LESIONS, 2 TO 4 04/25/20 98929-AFRK SKIN LESIONS, 2 TO 4 03/16/20 33982-NHRY SKIN LESIONS, 2 TO 4 04/26/20 66415-HNWD SKIN LESIONS, 2 TO 4 01/19/20 86726-QZCC SKIN LESIONS, 2 TO 4 09/14/20 24 66627-CYUK SKIN LESIONS, 2 TO 4 06/22/20 24 62333-TKDQ SKIN LESIONS, 2 TO 4 04/18/20 95753-TCXG SKIN LESIONS, 2 TO 4 01/18/20 42382-PVZO SKIN LESIONS, 2 TO 4 07/20/20 19 96860-GIOV SKIN LESIONS, 2 TO 4 07/07/20 70069-XHRC SKIN LESIONS, 2 TO 4 10/13/19 99234-SCGR SKIN LESIONS, 2 TO 4 01/13/20 44435-ETMY SKIN LESIONS, 2 TO 4 05/15/20 14540-YMZV SKIN LESIONS, 2 TO 4 08/31/20 63326-LNTC SKIN LESIONS, 2 TO 4 11/29/19 42242-BYAG SKIN LESIONS, 2 TO 4 03/29/20 R4326-HQLATMSN DYSTROPHIC NAILS ANY # O3612-OXOSMQDM DYSTROPHIC NAILS ANY # T3766-XZHHQVSC DYSTROPHIC NAILS ANY # E8358-NUUOJSCU DYSTROPHIC NAILS ANY # H4760-BIWEFPLF DYSTROPHIC NAILS ANY # K4979-OYHHRSYB DYSTROPHIC NAILS ANY # I8038-UIIXXNFZ DYSTROPHIC NAILS ANY # A6341-RSFWLDGH DYSTROPHIC NAILS ANY # B0368-TDODBAPL DYSTROPHIC NAILS ANY # V0793-VSWHVSEA DYSTROPHIC NAILS ANY S6409-EVSPVZLE DYSTROPHIC NAILS ANY # F4568-WSYSCBZY DYSTROPHIC NAILS ANY # O2728-IMOOLYWG DYSTROPHIC NAILS ANY # T8449-SYTHZHXK DYSTROPHIC NAILS ANY # T7924-OFQBVRXY DYSTROPHIC NAILS ANY # L3016-FOGFLIAW DYSTROPHIC NAILS ANY # D1969-CUZKUNZB DYSTROPHIC NAILS ANY # H2792-VQSVRPJT DYSTROPHIC NAILS ANY # F3278-CJNHBPHQ DYSTROPHIC NAILS ANY # T0903-HJPHHJKO DYSTROPHIC NAILS ANY # O3349-ZTUNAMYV DYSTROPHIC NAILS ANY # M1903-NBAJEUIS DYSTROPHIC NAILS ANY # Next Appt Details Provider Name:Jayashree Fink , 07/29/2025 08:30:00 AM, [address] [place], [address], Insurance Providers Payer Name Payer Address Payer Phone Subscriber Number Group Number Insured Name Patient Relationship to Insured Coverage Start Date Coverage End Date Medicare [facility] [employer] [address] [place] [phone] [id number] Josefina Wilde Self - patient is the insured [facility] [address] [place] [address] [id number] Josefina Wilde Self - patient is the insured [employer] [address] [place] [address] [id number] MAINE WILDE Spouse - patient is the [...] surgery 06/25/22 Hospitalization History Reason Date(Month/Year) ER [facility] [place] Foot [place] 08/23 [facility]- 3 days sinus surgery complication uncontrollable nose bleed 2021 [facility] [place]- covid 09/2021
--- OUTSIDE RECORDS SUMMARY | 2025-05-28 09:51 | XMS_ITS | Patient Health Record ---
Author Organization [employer] [facility] Address [address] [place] [address] Care Team Providers Care Party Demonstrator Name Role Phone TONY GARCES M.D. Primary Care Provider Unavaila Felicia Pool Unavailable [phone] Reason For Referral No Information Medications Medication SIG (Take, Route, Fr equency, Duration) Notes Start Date End Date Status Simvastatin 20MG 1 ORAL daily; Duration: -3 [facility] 2011 Active Spironolactone 25MG 1 ORAL daily; Duration: -3 [facility] 05/2013 Active Terazol 7 0.4 % 1 application at bed time Vaginal Once a day; Duration: 7 day(s) 05/10/2015 Active LORazepam 0.5 MG 1 tablet as needed O rally Twice a day Active Atenolol 50MG 1 ORAL DAILY; Duration: -3 [facility] 2 Active cloNIDine HCl 0.1MG 1 ORAL twice daily; Duration: -3 [facility] 09/09/2012 Active Lisinopril 40MG 1 ORAL daily; Duration: -3 [facility] 012 Active PARoxetine HCl 40MG 1 ORAL daily; Duration: -3 [facility] 07/2012 Active Problems Problem Type SNOMED Code ICD Code Onset Dates Problem Status W/U Status Risk Notes Problem Hyperlipidemia (15785014) Other and unspecified hyperlipidemia (272.4) Active confirmed Major Problem Depressive disorder (54399396) Depressive disorder, not elsewhere classified (311) Active confirmed Major Problem Glaucoma (90759585) Unspecified glaucoma (365.9) Active confirmed Diag Problem Benign essential hypertension (0923013) Essential hypertension, benign (401.1) Active confirmed Major Problem Female genital organ symptoms (446670906) Other specified symptom associated with female genital organs (625.8) Active confirmed Major Problem Postmenopausal bleeding (22249756) Postmenopausal bleeding (627.1) Active confirmed Diag Problem Menopausal symptom (89347029) Symptomatic menopausal or female climacteric states (627.2) Active confirmed Major Problem Left lower quadrant pain (898207008) Abdominal pain, left lower quadrant (789.04) Active confirmed Diag Problem Gynecological examination normal (476258642337695) Routine gynecological examination (V72.31) Active confirmed Problem Screening for malignant neoplasm of colon (863816937) Special screening for malignant neoplasms, colon (V76.51) Active confirmed Major Plan Of Treatment Pending Test Test Name Order Date Bone Density 10/19/2016 Urine Culture and Sensitivity 05/10/2015 Insurance Providers Payer Name Payer Address Payer Phone Subscriber Number Group Number Insured Name Patient Relationship to Insured Coverage Start Date Coverage End Date [employer] [address] [place] [address] [id number] JUNE ESTEVES Self - patient is the insured [facility] [employer] [address] [place], [place] [id number] [phone] [id number] JUNE ESTEVES Self - patient is the [...] TONSILLECTOMY APPENDECTOMY PITUITARY GLAND, TUMOR EXCISION [facility] Hospitalization History Reason Date(Month/Year) CHILD SEE SURGICAL HX
--- OUTSIDE RECORDS SUMMARY | 2025-05-28 09:51 | XMS_ITS | Patient Health Record ---
Author Organization [facility] Address [address] [place] [address] Care Team Providers Care Liaison Engineer Name Role Phone Rebekah (RETIRED) Radu BLAS Primary Care Provide r Unavailable [facility] Unavailable [phone] Allergies Allergen (clinical drug ingredient) Drug/Non Drug Allergy documented on EMR Reaction Allergy Type Onset Date Status nifedipine NIFEdipine Unknown Drug Allergy Activ e Results Component Value Reference Range Notes Glucose, Whole Blood Reviewed date:02/13/2025 06:25:53 PM Interpretation: Performing Lab:[facility], [address] [place] [phone] Notes/Report: Glucose, Whole Blood 127 60-115 mg/dL METER # : [id number] Pathology (Not yet reviewed by provider) Interpretation: Performing Lab:[facility], [address] [place] [phone] Notes/Report: Reason For Referral No Information Medications [...] Problem Status W/U Status Risk Notes Problem 986105841 Encounter for screening for malignant neoplasm of colon (Z12.11) Active confirmed Problem 698149667 History of adenomatous polyp of colon (Z86.010) Active confirmed Problem 289385797 Bloating (R14.0) Active confirmed Problem Constipation (53066996) Constipation (K59.00) Active confirmed Problem 951964183 Flatulence (R14.3) Active confirmed Problem Anticoagulant long-term use (Z79.01) Active confirmed Problem 171961193566505 Pre-procedural examination (Z01.818) Active confirmed Vital Signs Blood pressure diastolic 00 mm Hg 10/27/2024 Height 66 in 10/27/2024 Blood pressure systolic 00 mm Hg 10/27/2024 Weight 233 lbs 10/27/2024 BMI 37.60 kg/m2 10/27/2024 Encounters Encounter Location Date Provider Diagnosis [facility] [place] [address] [place], [place] [phone] 02/12/2025 [facility] Colon cancer screeni ng Z12.11 ; Adenomatous colon polyp D12.6 ; Diverticulosis of large intestine without perforation or abscess without bleeding K57.30 and Other hemorrhoids K64.8 [facility] [address] [place] [address] 10/27/2024 [facility] History of adenomato us [...] [place] [address] [place] [address] [id number] JOSEFINA IBARRA Self - patient is the insured [facility] [address] [place], [place] [id number] [phone] [id number] JOSEFINA IBARRA Self - patient is the insured [employer] [address] [place] [address] [phone] [id number] JOSEFINA IBARRA Self - patient is the [...] the right D&C Pituitary gland surgery Appy [facility]
[2025-05-28 12:42] LABS: Hemoglobin A1C 193.6363 umol/L; Total Hemoglobin (HGBA1C) 3472.7774 umol/L
[2025-05-28 12:48] LABS: Anion Gap 12 (12-20); Blood Urea Nitrogen 17 mg/dL (9-16); Carbon Dioxide 29 mmol/L (22-29); Chloride 107 mmol/L (96-108); Estimated Glomerular Filt Rate > 60; Potassium 4.0 mmol/L (3.3-5.1); Sodium 144 mmol/L (135-145)
== END 2025-05-28 08:59 | disposition home or self-care (01) ==
LOC: HO.10HDL 08:58
PROVIDERS: Internal Medicine; Visit Provider Internal Medicine Nephrology
DX: E11.9 Type 2 diabetes mellitus without complications (principal); I10 Essential (primary) hypertension
CPT/HCPCS: 36415; 80051; 82565; 83036; 84520

== ENCOUNTER 2025-06-02 09:50 | Outpatient (AMB) | payer MEDICARE, BC, OTHER, SELFPAY ==
--- NOTE | 2025-06-02 10:07 | HO.NEPHOV ---
Vital Signs 06/02/25 10:12 Height 5 ft 6 in Weight 241 lb BMI 38.9 BP 112/64 Blood Pressure Location Rt brachial Position Sitting Pulse 71 Pulse Source Pulse Oximeter Pulse Oximetry (%) 95 Oxygen Delivery Method Room Air Intake Visit Reasons: 6 MO FU-Conf Cytology Manager Required: No Accompanied by: Self / Same As Patient Allergies nifedipine (NIFEDIPINE) Allergy (Unknown, Verified 06/02/25 10:14) UNKNOWN- DOES NOT REMEMBER HPI Comments Details: Josefina was seen in follow-up of her hypertension. In the past she has H/O COVID and had chest pain leading to cardiac catheterization. She has a new right foot drop. She is going to see Dr Riggins. She has family history of bladder cancer & had a cystoscopy which was negative. She denies nausea, vomiting, diarrhea, shortness of breath, paroxysmal nocturnal dyspnea, orthopnea, pedal edema or urinary symptoms. She is compliant with her medications. She avoids nonsteroidal anti-inflammatories tries to minimize sodium in the diet. All other systems have been reviewed and were negative. 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 Low back pain, unspecified Pain in left shoulder Intercostal pain Major depressive disorder, recurrent, unspecified Unilateral primary osteoarthritis, left knee CELIA on CPAP Diastolic dysfunction Panic disorder Generalized anxiety disorder Dysthymia PAF (paroxysmal atrial fibrillation) New onset atrial fibrillation Prediabetes HTN (hypertension) Surgical History History of carpal tunnel release History of pituitary surgery H/O colonoscopy History of nasal surgery S/P cardiac cath History of hysterectomy Family History Mother Bladder cancer Social History Housing: House Are you a primary long term care phlebotomist to a significant other at home: No Do you presently have visiting nurse or other home services: No Alcohol intake: never Patient Tobacco Use Status: Former Tobacco user Tobacco use type: Cigarette e-Cigarette/Vaping Use: Never Used Advance Directives Date on File: 07/03/22 service: No Current occupational status: retired Cognitive needs: Yes (cane) Hearing needs: Yes (b/l hearing aids) Vision needs: Yes (rx glasses) Review of Systems Const All systems reviewed & are unremarkable except as noted in HPI and below Physical Exam Vital Signs: Last Vital Signs Pulse 71 06/02/25 10:12 BP 112/64 06/02/25 10:12 Pulse Ox 95 06/02/25 10:12 Oxygen Delivery Method Room Air 06/02/25 10:12 BMI result Body Mass Index 38.9 Const General: comfortable and no acute distress Orientation/consciousness: patient oriented x3 HEENT Head: Yes normocephalic Mouth: Normal oral and palatal mucosa present Eyes EOM: EOMs intact bilaterally Neck Neck: Yes supple Resp Auscultation: clear to auscultation bilaterally Cardio Jugular venous distension: no JVD Rate: regular rate GI Palpation (GI): Soft to palpation Auscultation: normal bowel sounds General: Yes no CVA tenderness Back/Spine/Pelvis Back: no CVA tenderness Skin General skin exam: no rashes or lesions noted Neuro General: patient oriented x3 and moves all extremities Extrem General: Yes no pedal edema Results Reviewed Nephrology Results: Sodium, (135-145) 144 mmol/L 05/28/25 Potassium, (3.3-5.1) 4.0 mmol/L 05/28/25 Chloride, (96-108) 107 mmol/L 05/28/25 Carbon Dioxide, (22-29) 29 mmol/L 05/28/25 BUN, (9-16) 17 mg/dL H 05/28/25 Creatinine, (0.5-1.4) 0.64 mg/dL 05/28/25 Assessment & Plan Assessment & Plan (1) HTN (hypertension): Code(s): I10 - Essential (primary) hypertension Category: Medical Qualifiers: Hypertension type: primary hypertension Qualified Code(s): I10 - Essential (primary) hypertension Plan Josefina has longstanding hypertension. She is prediabetic. She has not lost any weight. She has not on any oral hypoglycemic agents. She has history of diastolic dysfunction. Her volume status is optimal. Her orthostatic symptoms have improved after I decreased her Carvedilol to 12.5 mg bid. She has not known to have proteinuria but is known to have atherosclerotic cardiovascular disease. She is tolerating LINDY inhibitor well. Her renal functions had been stable . She tries to maintain good hydration. She needs to lose some weight. She should maintain low-sodium diet, continued lifestyle modifications and avoidance of nonsteroidal anti-inflammatories. I did not make any medication changes. Answered all questions. Follow-up given Orders: Orders Blood Urea Nitrogen 6 Months I10 - Essential (primary) hypertension Calcium 6 Months I10 - Essential (primary) hypertension Protein Creatinine Ratio, Ur 6 Months I10 - Essential (primary) hypertension Electrolytes 6 Months I10 - Essential (primary) hypertension Creatinine 6 Months I10 - Essential (primary) hypertension Coding Level of Care Code Est Pt Level 4 (11910) Diagnoses Primary hypertension I10 Hypertension type: primary hypertension
[2025-06-02 10:12] VITALS: BP 112/64; PULSE 71; O2SAT 95; BMI 38.9
--- OUTSIDE RECORDS SUMMARY | 2025-06-02 11:00 | XMS_ITS | Clinical Summary ---
Author Organization [facility] Address [address] [place] [address] Phone Care Team Providers Care Imaging Specialist Name Role Phone Radu Welch MD Primary Care Provider [phone] Allergies No known active allergies Medications lisinopril [...] also be consided for placement of a ice guard inspector. They can see their dentist or an [...] average glucose, using the formula of the W8B-Aacjilq Average Glucose study (ADAG), Diabetes Care, Vol.31,#8, [...] Most Recently Relevant to Health Maintenance Insurance [facility] Medicare [facility] Medicare [facility] Care Teams Imaging Specialist Relationship Specialty Start Date End Date Radu Welch MD [address] [place] [address] [address] [place] [facility] - General 10/10/20
== END 2025-06-02 10:42 | disposition home or self-care (01) ==
LOC: HO.HKA 09:51
PROVIDERS: PCP Internal Medicine; Visit Provider Internal Medicine Nephrology
DX: I10 Essential (primary) hypertension (principal)
CPT/HCPCS: 99214

== ENCOUNTER → 2025-06-02 09:50 | Outpatient (BNVA) | payer MEDICARE, BC, OTHER, SELFPAY | PROVIDERS: PCP Internal Medicine; Visit Provider Internal Medicine Nephrology | DX: I10 Essential (primary) hypertension (principal) | CPT/HCPCS: 99212 ==

== ENCOUNTER 2025-06-11 09:47 | Outpatient (AMB) | payer MEDICARE, BC, OTHER, SELFPAY ==
--- OUTSIDE RECORDS SUMMARY | 2024-09-17 04:30 | XMS_ITS ---
Author Organization [facility] Address [address] [place] [address] Care Team Providers Care Refuge Manager Name Role Phone Jaqueline No Primary Care Provider Jayashree Coleman [phone] REASON FOR VISIT Seen Sooner Encounters Encounter Location Date Provider Diagnosis [address] [address] 09/17/2024 Jayashree Fink Plan Of Treatment Next Appt Details Provider Name:Jayashree Fink , 07/29/2025 08:30:00 AM, [address] [place], [address], Progress Notes * Alivia WILDEOB:03/1955 (69 yo F)Acc No.[id number]:09/17/2024 Progress Note Patient: Ceferino MOSERine Provider: Anat Fink DPM :1955 A ge:69 Y S ex:Female Date:09/17/2024 Address:[address] [place] [address], [place] [facility] Pcp:Jaqueline No Subjective: * Chief Complaints: * [...] DPM Date: 1 11/18/2023 Generated for Kun pelayo/Isaiah/Ambaritting on: 0 06/11/2025 10:55 AM EDT
--- OUTSIDE RECORDS SUMMARY | 2024-10-12 05:00 | XMS_ITS ---
Author Organization [facility] Address [address] [place] [id number] Care Team Providers Care Supportability Engineer Name Role Phone Jaqueline No Primary Care Provider Jayashree Coleman [phone] REASON FOR VISIT Seen Sooner Encounters Encounter Location Date Provider Diagnosis [address] [id number] 10/12/2024 Jayashree Fink Plan Of Treatment Next Appt Details Provider Name:Jayashree Fink , 07/29/2025 08:30:00 AM, [address] [place], [id number], Progress Notes * Alivia WILDEOB:03/1955 (69 yo F)Acc No.[id number]:10/12/2024 Progress Note Patient: Ceferino MOSERine Provider: Anat Fink DPM :1955 A ge:69 Y S ex:Female Date:10/12/2024 Address:[address] [place] [address], [place] [id number] Pcp:Jaqueline No Subjective: * Chief Complaints: * [...] 10/12/2024 Generated for Kun pelayo/Isaiah/Alok on: 0 06/11/2025 10:55 AM EDT
--- OUTSIDE RECORDS SUMMARY | 2024-12-17 05:15 | XMS_ITS ---
Author Organization [facility] Address [address] [place] [address] Care Team Providers Care Supplemental Nurse Name Role Phone Jaqueline No Primary Care Provider aJyashree Coleman [phone] Encounters Encounter Location Date Provider Diagnosis [address] [address] 12/17/2024 Jayashree Fink Plan Of Treatment Next Appt Details Provider Name:Jayashree Fink , 07/29/2025 08:30:00 AM, [address] [place], [address], Progress Notes * Alivia WILDEOB:03/1955 (69 yo F)Acc No.[id number]:12/17/2024 Progress Note Patient: Ceferino MOSERine Provider: Anat Fink DPM :1955 A ge:69 Y S ex:Female Date:12/17/2024 Address:[address] [place] [address], [place] [facility] Pcp:Jaqueline No Subjective: * Chief Complaints: * [...] 12/17/2024 Generated for Kun pelayo/Isaiah/Alok on: 0 06/11/2025 10:58 AM EDT
--- OUTSIDE RECORDS SUMMARY | 2025-02-12 09:00 | XMS_ITS ---
Author Organization [facility] Address [address] [place] [phone] Care Team Providers Care Almond Blancher Hand Name Role Phone Rebekah (RETIRED) Radu BLAS Primary Care Provide r Good Cordero [phone] REASON FOR VISIT screening,hx polyps Encounters Encounter Location Date Provider [place] [facility] [place] [address] [place] [id number] 02/12/2025 Good Berry Colon cancer scree kristen [...] JUNE IBARRA MDOB: 1955 (69 yo F)Acc No.[id number]:02/12/2025 COLON WITH MAC Patient: JUNE CALLEJAS Provider: Vince Berry MD :1955 A ge:69 Y S ex:Female Date:02/12/2025 Address:[address] [place] [address], [id number] Pcp:Radu Welch (RETIRED )MD Subjective: * Chief [...] 02/12/2025 Generated for Kun pelayo/Isaiah/Ambaritting on: 0 06/11/2025 10:55 AM EDT
--- NOTE | 2025-06-11 10:02 | MHC.OFFWIV ---
Intake Vital Signs 06/11/25 10:04 06/11/25 10:09 Height 5 ft 6 in Weight 243 lb BMI 39.2 BP 172/96 H 154/76 H Blood Pressure Location Rt brachial Lt brachial Position Sitting Sitting Pulse 66 Pulse Source Pulse Oximeter Temp 98.0 F Temp Source Oral Pulse Oximetry (%) 95 Oxygen Delivery Method Room Air Intake Visit Reasons: ep right ear pain Intake Note: pt presents with unresolved ear pain after abx tx Patient Tobacco Use Status: Former Tobacco user Allergies nifedipine (NIFEDIPINE) Allergy (Unknown, Verified 06/11/25 10:05) UNKNOWN- DOES NOT REMEMBER Do you need a note to return to daycare/school/sports/work: No HPI ep right ear pain HPI Details This a 69-year-old female patient presents to the walk-in clinic today with right ear pain. On 04/29, she was started on antibiotic eardrops, and also a Z-Juan by her PCP for acute sinusitis and right ear OE. She states that the sinus infection resolved, however her right ear is still bothersome. Denies any fever/chills or sick symptoms. Has a history of sinus surgery 4 years ago and is going for a f/u in [place] next week and would like to have this treated prior to going. 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 Low back pain, unspecified Pain in left shoulder Intercostal pain Major depressive disorder, recurrent, unspecified Unilateral primary osteoarthritis, left knee CELIA on CPAP Diastolic dysfunction Panic disorder Generalized anxiety disorder Dysthymia PAF (paroxysmal atrial fibrillation) New onset atrial fibrillation Prediabetes HTN (hypertension) Surgical History History of carpal tunnel release History of pituitary surgery H/O colonoscopy History of nasal surgery S/P cardiac cath History of hysterectomy Family History Mother Bladder cancer Social History Housing: House Are you a primary respiratory care program director to a significant other at home: No Do you presently have visiting nurse or other home services: No Alcohol intake: never Patient Tobacco Use Status: Former Tobacco user Tobacco use type: Cigarette e-Cigarette/Vaping Use: Never Used Advance Directives Date on File: 07/03/22 service: No Current occupational status: retired Cognitive needs: Yes (cane) Hearing needs: Yes (b/l hearing aids) Vision needs: Yes (rx glasses) Review of Systems Const All systems reviewed & are unremarkable except as noted in HPI and below Physical Exam Vital Signs: Last Vital Signs Temp 98.0 F 06/11/25 10:04 Pulse 66 06/11/25 10:04 BP 154/76 H 06/11/25 10:09 Pulse Ox 95 06/11/25 10:04 Oxygen Delivery Method Room Air 06/11/25 10:04 BMI result Body Mass Index 39.2 Const General: cooperative, healthy appearing, comfortable and no acute distress HEENT Head: Yes normal to inspection and Yes normocephalic Ears: hearing grossly normal bilaterally, external ears normal, TM normal on the left and unable to visualize TM on the right (purulent effusion) Neck Neck: Yes no lymphadenopathy Resp Effort & Inspection: normal respiratory effort Auscultation: clear to auscultation bilaterally Cardio Rate: regular rate Rhythm: regular rhythm Skin General skin exam: no rashes or lesions noted Psych Appearance: grossly normal Mental Status: mental status grossly normal Speech and movement: Normal speech and movement present Office Procedures Cerumen Removal From which ear canal was the cerumen removed: right Removal: irrigation Notes: patient tolerated procedure well, no complications and ear canal clear 31761-Cdt Irrigation/Lavage Assessment & Plan Assessment & Plan (1) Right otitis media with effusion: Code(s): H65.91 - Unspecified nonsuppurative otitis media, right ear Plan: Following irrigation of right ear, I was able to visualize the TM, which appeared erythematous. She has a questionable penicillin allergy, so I will start her instead on cefdinir. We reviewed indications, use, possible side effects of this. If she does not improve with treatment, or if symptoms worsen/new symptoms develop, she should return to the clinic for further evaluation. Has f/u with ENT in [place] next week so can likely have f/u eval at that time if needed. All questions were answered and patient verbalizes understanding and agrees to plan. Medications: New cefdinir 300 mg PO BID 14 caps 0RF 7 days H66.91 - Otitis media, unspecified, right ear Coding Level of Care Code Est Pt Level 4 (90653) Diagnoses Right otitis media with effusion H65.91 CPT Codes Office Procedure - CPT: 85031-Lie Irrigation/Lavage ([id number])
[2025-06-11 10:04] VITALS: BP 172/96; PULSE 66; TEMP 36.7; O2SAT 95; BMI 39.2
[2025-06-11 10:09] VITALS: BP 154/76
--- OUTSIDE RECORDS SUMMARY | 2025-06-11 10:56 | XMS_ITS | Patient Health Record ---
Author Organization [facility] Address [address] [place] [address] Care Team Providers Care Occupational Health Specialist Name Role Phone TONY GARCES M.D. Primary Care Provider Unavaila Felicia Pool Unavailable [phone] Reason For Referral No Information Medications Medication SIG (Take, Route, Fr equency, Duration) Notes Start Date End Date Status Simvastatin 20MG 1 ORAL daily; Duration: -3 [facility] 2011 Active Spironolactone 25MG 1 ORAL daily; Duration: -3 [facility] 05/2013 Active Terazol 7 0.4 % 1 application at bed time Vaginal Once a day; Duration: 7 day(s) 05/10/2015 Active LORazepam 0.5 MG 1 tablet as needed O rally Twice a day Active Atenolol 50MG 1 ORAL DAILY; Duration: -3 [facility] 2 Active cloNIDine HCl 0.1MG 1 ORAL twice daily; Duration: -3 [facility] 09/09/2012 Active Lisinopril 40MG 1 ORAL daily; Duration: -3 [facility] 012 Active PARoxetine HCl 40MG 1 ORAL daily; Duration: -3 [facility] 07/2012 Active Problems Problem Type SNOMED Code ICD Code Onset Dates Problem Status W/U Status Risk Notes Problem Hyperlipidemia (72318787) Other and unspecified hyperlipidemia (272.4) Active confirmed Major Problem Depressive disorder (90495427) Depressive disorder, not elsewhere classified (311) Active confirmed Major Problem Glaucoma (51075367) Unspecified glaucoma (365.9) Active confirmed Diag Problem Benign essential hypertension (5268022) Essential hypertension, benign (401.1) Active confirmed Major Problem Female genital organ symptoms (213822099) Other specified symptom associated with female genital organs (625.8) Active confirmed Major Problem Postmenopausal bleeding (68447255) Postmenopausal bleeding (627.1) Active confirmed Diag Problem Menopausal symptom (13297058) Symptomatic menopausal or female climacteric states (627.2) Active confirmed Major Problem Left lower quadrant pain (016343921) Abdominal pain, left lower quadrant (789.04) Active confirmed Diag Problem Gynecological examination normal (886295827376273) Routine gynecological examination (V72.31) Active confirmed Problem Screening for malignant neoplasm of colon (184981776) Special screening for malignant neoplasms, colon (V76.51) Active confirmed Major Plan Of Treatment Pending Test Test Name Order Date Bone Density 10/19/2016 Urine Culture and Sensitivity 05/10/2015 Insurance Providers Payer Name Payer Address Payer Phone Subscriber Number Group Number Insured Name Patient Relationship to Insured Coverage Start Date Coverage End Date [employer] [address] [place] [address] [id number] JUNE ESTEVES Self - patient is the insured [facility] [employer] [address] [place], [place] [id number] JUNE ESTEVES Self - patient is the [...] TONSILLECTOMY APPENDECTOMY PITUITARY GLAND, TUMOR EXCISION [facility] 2013 Hospitalization History Reason Date(Month/Year) CHILD SEE SURGICAL HX
--- OUTSIDE RECORDS SUMMARY | 2025-06-11 10:56 | XMS_ITS | Clinical Summary ---
Author Organization [facility] Address [address] [place] [address] Phone Care Team Providers Care Gear Repair Supervisor Name Role Phone Radu Welch MD Primary Care Provider [phone] Allergies No known active allergies Medications lisinopril [...] also be consided for placement of a nightman. They can see their dentist or an [...] average glucose, using the formula of the B2T-Leltqge Average Glucose study (ADAG), Diabetes Care, Vol.31,#8, [...] Most Recently Relevant to Health Maintenance Insurance [facility] Medicare [facility] Medicare [facility] Care Teams Gear Repair Supervisor Relationship Specialty Start Date End Date Radu Welch MD [address] [place] [address] [address] [place] [facility] - General 10/10/20
--- OUTSIDE RECORDS SUMMARY | 2025-06-11 10:56 | XMS_ITS | Patient Health Record ---
Author Organization [facility] Address [address] [place] [address] Care Team Providers Care Board Saw Runner Name Role Phone Jaqueline No Primary Care Provider Jayashree Coleman Unavailable [phone] Allergies Allergen (clinical drug ingredient) Drug/Non Drug [...] Polyneuropathy due to type 2 diabetes mellitus (478301169) Type 2 diabetes mellitus with diabetic polyneuropathy (E11.42) Active confirmed Vital Signs Blood pressure diastolic 70 mm Hg 04/26/2025 Height 5ft6in in 04/26/2025 Blood pressure systolic 120 mm Hg 04/26/2025 Weight 240 lbs 04/26/2025 BMI 38.73 kg/m2 04/26/2025 Procedures Procedure Date Ordered Date Performed Result Body Sit e 15781-Ymlt Destruction, 1-14 06/22/2024 N/A 22184-RYVM SKIN LESIONS, 2 TO 4 06/22/2024 N/A W3846-KLEHMPGW DYSTROPHIC NAILS ANY # 06/22/2024 N/A 38168-Frhj Destruction, 1-14 09/14/2024 N/A 04791-KUUX SKIN LESIONS, 2 TO 4 09/14/2024 N/A T1522-KQNVRJTJ DYSTROPHIC NAILS ANY # 09/14/2024 N/A 89534-Nngl Destruction, 1-14 01/18/2025 N/A 94317-OSHF SKIN LESIONS, 2 TO 4 01/18/2025 N/A F1758-GBFASVUB DYSTROPHIC NAILS ANY # 01/18/2025 N/A 25127-Vgzq Destruction, 1-14 04/26/2025 N/A 02043-Ussuknkk Plate 04/26/2025 N/A 97830-Ptfzezdi Plate Each Additional 04/26/2025 N/A 64274-DHQE SKIN LESIONS, 2 TO 4 04/26/2025 N/A I9670-KHULKWWW DYSTROPHIC NAILS ANY # 04/26/2025 N/A Encounters Encounter Location Date Provider Diagnosis [facility] [address] [address] 06/22/2024 Jayashree Black Other viral warts B07.8 ; Other hammer toe(s) (acquired), right foot M20.41 ; Pain in left foot M79.672 ; Type 2 diabetes mellitus with diabetic polyneuropathy E11.42 ; Other hammer toe(s) (acquired), left foot M20.42 and Ingrown nail L60.[address] [facility] [address] 09/14/2024 Jayashree Fink Other viral warts B07.8 ; Right foot drop M21.371 ; Pain in left foot M79.672 ; Type 2 diabetes mellitus with diabetic polyneuropathy E11.42 ; Injury of right peroneal nerve, initial encounter S84.11XA and Neuritis M79.[address] [address] 01/18/2025 Jayashree Fink Other viral warts B07.8 ; Right foot drop M21.371 ; Pain in left foot M79.672 ; Type 2 diabetes mellitus with diabetic polyneuropathy E11.42 and Neuritis M79.[address] [address] 04/26/2025 Jayashree Fink Other viral warts B07.8 ; Pain in left foot M79.672 ; Type 2 diabetes mellitus with diabetic polyneuropathy E11.42 and Ingrown nail L60.[address] [address] 09/14/2024 Jayashreelibertad Fink [facility] [address] 11/18/[address] [address] 12/11/2024 Jayashree Fink Assessments Encounter Date Diagnosis [...] Treatment Pending Test Test Name Order Date 46706-Kooc Destruction, -14 07/20/2019 01172-Gblc Destruction, -14 01/18/2020 74364-Dmse Destruction, -04/18/2020 96587-Gawa Destruction, -07/07/2020 70414-Fsby Destruction, -14 10/13/2020 04254-Ehhm Destruction, -14 01/12/2021 46984-Qlxw Destruction, -14 05/15/2021 53690-Ninb Destruction, -14 08/31/2021 60276-Vmlq Destruction, -14 11/28/2021 96067-Nmzt Destruction, 1-14 03/29/2022 75419-Njee Destruction, 1-14 07/02/2022 19863-Gxtn Destruction, 1-14 10/11/2022 13040-Kmdd Destruction, 1-14 04/25/2023 78414-Jmnp Destruction, 1-14 08/05/2023 77822-Bqei Destruction, 1-14 01/17/2023 67592-Afhi Destruction, 1-14 12/23/2023 19365-Pfha Destruction, 1-14 03/16/2024 91626-Xyab Destruction, 1-14 06/22/2024 22167-Tijt Destruction, 1-14 09/14/2024 63358-Euni Destruction, 1-14 01/18/2025 10433-Zhwg Destruction, 1-14 04/26/2025 26100-Krsaqtzs Plate 04/26/2025 35818-Vakalsnr Plate 03/16/2024 70030-Fcltnnfw Plate 08/05/2023 44593-Tvibzhyq Plate 01/17/2023 84104-Ocpudrit Plate 03/29/2022 42527-Vwlprgoz Plate 11/28/2021 07550-Sdpxvkec Plate 08/31/2021 34246-Lrgxkuik Plate 05/15/2021 72146-Qsvrdicj Plate 01/12/2021 35563-Ezkbytcp Plate 04/18/2020 52304-Czglcpwo Plate Each Additional 93018-Qvaiwfmr Plate Each Additional 39361-VSV 11/21/2023 99498- Debride <25 sq cm 12/23/2023 03437-ZRVHIQW SKIN/TISSUE 12/05/2023 15621-TDYT SKIN LESIONS, 2 TO 4 12/05/19 67140-WLQN SKIN LESIONS, 2 TO 4 08/05/20 00006-SQJD SKIN LESIONS, 2 TO 4 01/18/20 63811-NRJO SKIN LESIONS, 2 TO 4 10/11/19 23928-ZEXO SKIN LESIONS, 2 TO 4 07/02/20 54075-DHMZ SKIN LESIONS, 2 TO 4 12/23/19 55724-NSCT SKIN LESIONS, 2 TO 4 04/25/20 96838-OJTB SKIN LESIONS, 2 TO 4 03/16/20 76963-YRHL SKIN LESIONS, 2 TO 4 04/26/20 35816-EPTU SKIN LESIONS, 2 TO 4 01/19/20 01287-AZXP SKIN LESIONS, 2 TO 4 09/14/20 24 20757-MTYR SKIN LESIONS, 2 TO 4 06/22/20 24 70115-ZVDE SKIN LESIONS, 2 TO 4 04/18/20 12641-LXPD SKIN LESIONS, 2 TO 4 01/18/20 74745-EEAY SKIN LESIONS, 2 TO 4 07/20/20 19 10844-DPAD SKIN LESIONS, 2 TO 4 07/07/20 84826-MRNB SKIN LESIONS, 2 TO 4 10/13/19 74647-VLOR SKIN LESIONS, 2 TO 4 01/13/20 56765-BWEX SKIN LESIONS, 2 TO 4 05/15/20 55474-NCCK SKIN LESIONS, 2 TO 4 08/31/20 60244-LTFE SKIN LESIONS, 2 TO 4 11/29/19 06913-KFDG SKIN LESIONS, 2 TO 4 03/29/20 T3119-NLBPURIN DYSTROPHIC NAILS ANY # R9834-BFFRYMQK DYSTROPHIC NAILS ANY # C0701-LFUEVEEU DYSTROPHIC NAILS ANY # P3778-KTAJVMAF DYSTROPHIC NAILS ANY # B6667-EOVAZVIQ DYSTROPHIC NAILS ANY # O3443-MUARVTRK DYSTROPHIC NAILS ANY # S1064-BGHXZZZT DYSTROPHIC NAILS ANY # X1604-DLSFHJXO DYSTROPHIC NAILS ANY # R9534-DNABEQNE DYSTROPHIC NAILS ANY # W4919-KLSWANQA DYSTROPHIC NAILS ANY R1123-BLWFGYFY DYSTROPHIC NAILS ANY # N6246-SCZLNENC DYSTROPHIC NAILS ANY # P0048-YBOIAYSI DYSTROPHIC NAILS ANY # D6418-JEROQFXK DYSTROPHIC NAILS ANY # Z6493-IYWRFFKC DYSTROPHIC NAILS ANY # E7892-LFVHAMTW DYSTROPHIC NAILS ANY # V2684-MXPVNHWA DYSTROPHIC NAILS ANY # D9145-LRYQFJPS DYSTROPHIC NAILS ANY # B9313-SQJRFPXF DYSTROPHIC NAILS ANY # C5624-CNVFYORC DYSTROPHIC NAILS ANY # T4555-EQGSJLGH DYSTROPHIC NAILS ANY # K3448-VOPZTSFX DYSTROPHIC NAILS ANY # Next Appt Details Provider Name:Jayashree Fink , 07/29/2025 08:30:00 AM, [address] [place], [address], Insurance Providers Payer Name Payer Address Payer Phone Subscriber Number Group Number Insured Name Patient Relationship to Insured Coverage Start Date Coverage End Date Medicare [employer] [facility] [employer] [address] [place] [address] [id number] Josefina Wilde Self - patient is the insured [facility] [address] [place] [address] [id number] Josefina Wilde Self - patient is the insured [employer] [address] [place] [address] [phone] [id number] MAINE WILDE Spouse - patient is the [...] surgery 06/25/22 Hospitalization History Reason Date(Month/Year) ER [facility]- Foot pain 08/23 [facility]- 3 days sinus surgery complication uncontrollable nose bleed 2021 [facility]- covid 09/2021
--- OUTSIDE RECORDS SUMMARY | 2025-06-11 10:58 | XMS_ITS | Patient Health Record ---
Author Organization [facility] Address [address] [place] [address] Care Team Providers Care Home Care Aide Name Role Phone Rebekah (RETIRED) Radu BLAS Primary Care Provide r Unavailable [facility] Unavailable [phone] Allergies Allergen (clinical drug ingredient) Drug/Non Drug Allergy documented on EMR Reaction Allergy Type Onset Date Status nifedipine NIFEdipine Unknown Drug Allergy Activ e Results Component Value Reference Range Notes Glucose, Whole Blood Reviewed date:02/13/2025 06:25:53 PM Interpretation: Performing Lab:[facility], [address] [place] [id number] Notes/Report: Glucose, Whole Blood 127 60-115 mg/dL METER # : [id number] Pathology (Not yet reviewed by provider) Interpretation: Performing Lab:[facility], [address] [place] [id number] Notes/Report: Reason For Referral No Information Medications [...] Problem Status W/U Status Risk Notes Problem 250792251 Encounter for screening for malignant neoplasm of colon (Z12.11) Active confirmed Problem 167999842 History of adenomatous polyp of colon (Z86.010) Active confirmed Problem 020853045 Bloating (R14.0) Active confirmed Problem Constipation (78658417) Constipation (K59.00) Active confirmed Problem 763019231 Flatulence (R14.3) Active confirmed Problem Long-term current use of anticoagulant (011765208) Anticoagulant long-term use (Z79.01) Active confirmed Problem 461712252492859 Pre-procedural examination (Z01.818) Active confirmed Vital Signs Blood pressure diastolic 00 mm Hg 10/27/2024 Height 66 in 10/27/2024 Blood pressure systolic 00 mm Hg 10/27/2024 Weight 233 lbs 10/27/2024 BMI 37.60 kg/m2 10/27/2024 Encounters Encounter Location Date Provider Diagnosis [facility] [address] [place], [place] [id number] 02/12/2025 [facility] Colon cancer screeni ng Z12.11 ; Adenomatous colon polyp D12.6 ; Diverticulosis of large intestine without perforation or abscess without bleeding K57.30 and Other hemorrhoids K64.8 [facility] [address] [place] [address] 10/27/2024 Good Berry History of adenomato us [...] [place] [address] [place] [address] [id number] JOSEFINA IBARRA Self - patient is the insured [facility] [address] [place], [place] [id number] [phone] [id number] JOSEFINA IBARRA Self - patient is the insured [employer] [address] [place] [address] [phone] [id number] CECY IBARRAINE Self - patient is the insured Medical (General) History Medical History History ICD Code Colonoscopy 03-17-2007 and in 11/2012 with the removal of a tubular adenoma Denies AL,CVA,Lung disease,renal disease HTN Hyperlipidemia GERD--normal upper endoscopy in 11/2012 IBS---normal duodenal and gastric biopsi es--no H.pylori--EGD in 11/2012 Anxiety/Depression Uterine fibroid Sleep apnea-uses a CPAP machine Glaucoma Diet-controlled diabetes Drop foot 07/2024 Afib-Dr. Morel Negative colonoscopy in 09/2018 Depression Surgical History Surgery Date(Month/Year) Carpal tunnel on the right D&C Pituitary gland surgery [facility] CORNINH
== END 2025-06-11 11:04 | disposition home or self-care (01) ==
PROVIDERS: PCP Internal Medicine; Visit Provider Nurse Practitioner Family
DX: H65.91 Unspecified nonsuppurative otitis media, right ear (principal)

== ENCOUNTER → 2025-06-11 09:47 | Outpatient (BNVA) | payer MEDICARE, BC, OTHER, SELFPAY | PROVIDERS: PCP Internal Medicine | DX: H65.91 Unspecified nonsuppurative otitis media, right ear (principal) | CPT/HCPCS: 69209; 99212 ==

== ENCOUNTER 2025-07-13 09:31 | Outpatient (REF) | payer MEDICARE, BC, OTHER, SELFPAY | END 2025-07-13 09:32 | disposition home or self-care (01) | LOC: HO.LAB 09:31 | PROVIDERS: PCP Internal Medicine; Visit Provider Nurse Practitioner Family | DX: R31.0 Gross hematuria (principal); H66.91 Otitis media, unspecified, right ear; Z13.89 Encounter for screening for other disorder | CPT/HCPCS: 81003; 88112; 99212 ==

== ENCOUNTER 2025-07-13 09:31 | Outpatient (AMB) | payer MEDICARE, BC, OTHER, SELFPAY ==
--- OUTSIDE RECORDS SUMMARY | 2024-09-17 04:30 | XMS_ITS ---
Author Organization [facility] Address [address] [place] [address] Care Team Providers Care Painter Touch Up Name Role Phone Jaqueline No Primary Care Provider Jayashree Coleman [phone] REASON FOR VISIT Seen Sooner Encounters Encounter Location Date Provider Diagnosis [address] [address] 09/17/2024 Jayashree Fink Plan Of Treatment Next Appt Details Provider Name:Jayashree Fink , 07/29/2025 08:30:00 AM, [address] [place], [address], Progress Notes * Alivia WILDEOB:03/1955 (70 yo F)Acc No.[id number]:09/17/2024 Progress Note Patient: Ceferino MOSERine Provider: Anat Fink DPM :1955 A ge:69 Y S ex:Female Date:09/17/2024 Address:[address] [place] [address], [place] [address] [id number] Pcp:Jaqueline No Subjective: * Chief Complaints: * 1 . Seen Sooner. * Medical History: Objective: * Vitals: Assessment: Plan: * Treatment: * Images: * The named appointment provid er may or may not be the originator of this progress note, and it is not deemed complete until electronically signed by the appointment provider. Sign off status: Pending * Provider: Anat Fikn DPM Date: 1 11/18/2023 Generated for Kun pelayo/Isaiah/Alok on: 1 10:33 AM EDT
--- OUTSIDE RECORDS SUMMARY | 2024-10-12 05:00 | XMS_ITS ---
Author Organization [facility] Address [address] [place] [phone] Care Team Providers Care Modern Languages Professor Name Role Phone Jaqueline No Primary Care Provider Jayashree Coleman [phone] REASON FOR VISIT Seen Sooner Encounters Encounter Location Date Provider Diagnosis [address] [address] 10/12/2024 Jayashree Fink Plan Of Treatment Next Appt Details Provider Name:Jayashree Fink , 07/29/2025 08:30:00 AM, [address] [place], [address], Progress Notes * Alivia WILDEOB:03/1955 (70 yo F)Acc No.[id number]:10/12/2024 Progress Note Patient: Ceferino MOSERine Provider: Anat Fink DPM :1955 A ge:69 Y S ex:Female Date:10/12/2024 Address:[address] [place] [address], [place] [id number] Pcp:Jaqueline No Subjective: * Chief Complaints: * [...] 10/12/2024 Generated for Kun pelayo/Isaiah/Alok on: 1 10:33 AM EDT
--- OUTSIDE RECORDS SUMMARY | 2024-12-17 05:15 | XMS_ITS ---
Author Organization [facility] Address [address] [place] [address] Care Team Providers Care Boilermaker Central Steam Plant Name Role Phone Jaqueline No Primary Care Provider Jayashere Coleman [phone] Encounters Encounter Location Date Provider Diagnosis [address] [address] 12/17/2024 Jayashree Fink Plan Of Treatment Next Appt Details Provider Name:Jayashree Fink , 07/29/2025 08:30:00 AM, [address] [place], [address], Progress Notes * Alivia WILDEOB:03/1955 (70 yo F)Acc No.[id number]:12/17/2024 Progress Note Patient: Ceferino MOSERine Provider: Anat Fink DPM :1955 A ge:69 Y S ex:Female Date:12/17/2024 Address:[address] [place] [address], [place] gre[place]lib[place] [facility] Pcp:Jaqueline No Subjective: * Chief Complaints: * [...] 12/17/2024 Generated for Kun pelayo/Isaiah/Alok on: 1 10:34 AM EDT
--- OUTSIDE RECORDS SUMMARY | 2025-02-12 09:00 | XMS_ITS ---
Author Organization [facility] Address [address] [place] [phone] Care Team Providers Care Zoology Teacher Name Role Phone Rebekah (RETIRED) Radu BLAS Primary Care Provide r Good Cordero [phone] REASON FOR VISIT screening,hx polyps Encounters Encounter Location Date Provider [place] [facility] [place] [address] [place] [id number] 02/12/2025 Good Berry Colon cancer scree kristen [...] JUNE IBARRA MDOB: 1955 (70 yo F)Acc No.[id number]:02/12/2025 COLON WITH MAC Patient: JUNE CALLEJAS Provider: Vince Berry MD :1955 A ge:69 Y S ex:Female Date:02/12/2025 Address:[address] [place] [address], [id number] Pcp:Radu Welch (RETIRED )MD Subjective: * Chief [...] 02/12/2025 Generated for Kun pelayo/Isaiah/Ambaritting on: 1 10:33 AM EDT
--- NOTE | 2025-07-13 09:35 | MHC.OFFVIS ---
Intake Visit Reasons: 1 YEAR FOLLOW UP Intake Note: Patient is Present for 1Y F/U Urology Med: None Antibiotic Allergy: None Blood Thinner: Eliquis Candy Dipper Hand Required: No Allergies nifedipine (NIFEDIPINE) Allergy (Unknown, Verified 07/13/25 10:03) UNKNOWN- DOES NOT REMEMBER Medication List - Last Reconciled 07/13/25 by CHING Brown- acetaminophen (Tylenol Extra Strength) 1,000 mg (2 x 500 mg) PO Q6H PRN [AFO As directed] apixaban (Eliquis) 5 mg PO BID brimonidine 0.15% 1 drp ophthalmic (eye) BEDTIME brimonidine 0.2% 1 drp ophthalmic (eye) DAILY bupropion HCl SR 100 mg PO DAILY carvedilol 12.5 mg PO BID cholecalciferol (vitamin D3) 25 mcg PO BEDTIME clonidine HCl 0.1 mg PO BID 90 days hydralazine 25 mg PO TID latanoprost 0.005% 1 drp ophthalmic (eye) DAILY lidocaine 5% (Lidoderm) 1 patch topical DAILY PRN MDD remove after 12 hours lisinopril 40 mg PO BEDTIME loratadine (Claritin) 10 mg PO DAILY lorazepam 0.5 mg PO DAILY PRN paroxetine HCl (Paxil) 40 mg PO DAILY simvastatin 20 mg PO BEDTIME spironolactone 25 mg PO DAILY HPI Comments Details: Josefina is a very pleasant 70-year-old female patient of Dr. Marcellus Nava. She has a past medical history of type 2 diabetes, constipation, diverticulosis, depression, CELIA on CPAP, diastolic dysfunction, panic disorder, anxiety, paroxysmal AFib, and hypertension. She presents to the office today for follow-up of her history of gross hematuria. Of note, patient was seen approximately [address] Hayden at which time she underwent an office cystoscopy for her history of gross hematuria in the setting of anticoagulation. Cystoscopy 07/23 noted NAD. When asked she denies having had any other bouts of gross hematuria. She does report episodes of stress/urge incontinence however feels these symptoms are manageable. In office urinalysis results reviewed with the patient today no microscopic hematuria noted. She denies dysuria, foul smelling urine, changes to urinary stream, flank pain, fever, and or chills. She is happy with her current voiding parameters. She denies any bothersome urinary issues or concerns. She discusses her upcoming appointment with her primary care. All questions were answered. She otherwise offers no other issues or concerns at this time. 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 Low back pain, unspecified Pain in left shoulder Intercostal pain Major depressive disorder, recurrent, unspecified Unilateral primary osteoarthritis, left knee CELIA on CPAP Diastolic dysfunction Panic disorder Generalized anxiety disorder Dysthymia PAF (paroxysmal atrial fibrillation) New onset atrial fibrillation Prediabetes HTN (hypertension) Surgical History History of carpal tunnel release History of pituitary surgery H/O colonoscopy History of nasal surgery S/P cardiac cath History of hysterectomy Family History Mother Bladder cancer Social History Housing: House Are you a primary intensive care medicine specialist to a significant other at home: No Do you presently have visiting nurse or other home services: No Alcohol intake: never Patient Tobacco Use Status: Former Tobacco user Tobacco use type: Cigarette e-Cigarette/Vaping Use: Never Used Advance Directives Date on File: 07/03/22 service: No Current occupational status: retired Cognitive needs: Yes (cane) Hearing needs: Yes (b/l hearing aids) Vision needs: Yes (rx glasses) Review of Systems Eyes Reports no additional complaints ENT Reports no additional complaints Card Reports as per HPI Resp Reports as per HPI GI Reports as per HPI Reports as per HPI Musc Reports as per HPI Neuro Reports no additional complaints Psych Reports as per HPI Endo Reports as per HPI Alexandre/Lymph Reports no additional complaints Aller/Immun Reports no additional complaints Physical Exam Const General: cooperative, comfortable, no acute distress, well developed, alert and awake Nutritional Appearance: overweight Orientation/consciousness: patient oriented x3 HEENT Head: Yes normal to inspection, Yes normocephalic and Yes atraumatic Ears: hearing grossly normal bilaterally Eyes General: appearance normal, both eyes and all related structures Neck Neck: Yes normal visual inspection and Yes trachea midline Chest Chest palpation & inspection: normal inspection of the chest Resp Effort & Inspection: normal respiratory effort and able to speak in complete sentences Cardio Rate: regular rate GI Inspection: Yes normal to inspection General: Yes no CVA tenderness Back/Spine/Pelvis Back: no CVA tenderness Skin General skin exam: no rashes or lesions noted Neuro General: patient oriented x3 Extrem General: Yes normal to inspection Psych Appearance: grossly normal and well kempt Mental Status: mental status grossly normal Speech and movement: Normal speech and movement present and Clear speech present Affect: normal affect Attitude: cooperative Thought process: Normal thought process present Thought content: Normal thought content present Insight: Fair insight present (Psych) Judgement: Fair judgement present (Psych) Results AMB Urinalysis, Automated UA Leukoctes 0 María/uL Last Edit by ALEXANDRA Chung on 07/13/25 09:54 UA Nitrite Negative Last Edit by ALEXANDRA Chung on 07/13/25 09:54 UA Urobilinogen 0.2 mg/dL Last Edit by ALEXANDRA Chung on 07/13/25 09:54 UA Protein 15 mg/dL Last Edit by ALEXANDRA Chung on 07/13/25 09:54 UA pH 6.0 Last Edit by ALEXANDRA Chung on 07/13/25 09:54 UA Blood 0 Eduardo/uL Last Edit by ALEXANDRA Chung on 07/13/25 09:54 UA Specific [place] 1.025 Last Edit by ALEXANDRA Chung on 07/13/25 09:54 UA Ketone Negative Last Edit by ALEXANDRA Chung on 07/13/25 09:54 UA Bilirubin 0 mg/dL Last Edit by ALEXANDRA Chung on 07/13/25 09:54 UA Glucose 0 mg/dL Last Edit by ALEXANDRA Chung on 07/13/25 09:54 Results Reviewed Results Reviewed: Laboratory Last Values Urine pH (Auto) 6.0 10/14/25 09:53 Specific [place] (Auto) 1.025 07/13/25 09:53 Urine Protein (Auto) 15 mg/dL 07/13/25 09:53 Glucose (UA)(Auto) 0 mg/dL 07/13/25 09:53 Urine Ketones (Auto) Negative 07/13/25 09:53 Urine Blood (Auto) 0 Eduardo/uL 07/13/25 09:53 Urine Nitrite (Auto) Negative 07/13/25 09:53 Urine Bilirubin (Auto) 0 mg/dL 07/13/25 09:53 Urine Urobilinogen (Auto) 0.2 mg/dL 07/13/25 09:53 Leukocyte Esterase (Auto) 0 María/uL 07/13/25 09:53 Assessment & Plan Assessment & Plan (1) Hematuria: Code(s): R31.9 - Hematuria, unspecified Category: Medical Qualifiers: Hematuria type: gross Qualified Code(s): R31.0 - Gross hematuria Plan In office urinalysis results with the patient today; as noted above. Will send for urine cytology. She currently denies any bothersome urinary issues or concerns. She reports be happy with current voiding parameters. Will continue with surveillance monitoring. We discussed healthy bathroom behaviors. All questions were answered. Follow-up in 1 year; or sooner with any issues, concerns, and or questions. Orders: Orders Urine Cytology Today R31.0 - Gross hematuria AMB Urinalysis Automated Today Z13.9 - Encounter for screening, unspecified Medications: Discontinued cefdinir Discontinued Reason: Patient Completed Course 300 mg PO BID 14 caps 0RF 7 days H66.91 - Otitis media, unspecified, right ear Patient Instructions: The patient had an opportunity to ask questions regarding the treatment plan. All questions were answered. Physical exam, labs, and imaging were discussed and reviewed in detail. As well as risks, benefits, and discussion of treatment choices. No major barriers to understanding were identified. The patient expressed understanding and agreement with the above treatment plan. The patient was made aware they should contact our office by phone for worsening of their current condition, the appearance of new symptoms, or with any questions or concerns. Compliance is encouraged with any medications and follow up testing that is ordered. It is a privilege to be allowed the opportunity to participate in? your urological care.? Again, if you have any questions or concerns If you have any questions or concerns please do not hesitate to contact me. The office is [phone]. This note is constructed using voice recognition software. While every effort has been made to ensure accuracy group reservations coordinator errors may have been included. Yours sincerely, YULY Brown Coding Level of Care Code Est Pt Level 3 (67475) Complex EM visit Add On G2211 Diagnoses Gross hematuria R31.0 Hematuria type: gross
--- OUTSIDE RECORDS SUMMARY | 2025-07-13 10:33 | XMS_ITS | Clinical Summary ---
Author Organization [facility] Address [address] [place] [address] Phone Care Team Providers Care Plant Ecologist Name Role Phone Radu Welch MD Primary Care Provider [phone] Allergies No known active allergies Medications lisinopril [...] also be consided for placement of a licensed optician. They can see their dentist or an [...] Problem Noted Date Diagnosed Date Resolved Date Hammer toe 03/27/2023 03/27/2023 Acquired hammer toe of right [...] average glucose, using the formula of the T2F-Docivnx Average Glucose study (ADAG), Diabetes Care, Vol.31,#8, [...] Most Recently Relevant to Health Maintenance Insurance [facility] Medicare [facility] Medicare [facility] Care Teams Plant Ecologist Relationship Specialty Start Date End Date Radu Welch MD [phone] [place] [facility] - General 10/10/20
--- OUTSIDE RECORDS SUMMARY | 2025-07-13 10:34 | XMS_ITS | Patient Health Record ---
Author Organization [facility] Address [address] [place] [address] Care Team Providers Care Erosion Control Specialist Name Role Phone Jaqueline No Primary Care Provider Jayashree Coleman Unavailable [phone] Allergies Allergen (clinical drug ingredient) Drug/Non Drug [...] Polyneuropathy due to type 2 diabetes mellitus (501787784) Type 2 diabetes mellitus with diabetic polyneuropathy (E11.42) Active confirmed Vital Signs Blood pressure diastolic 70 mm Hg 04/26/2025 Height 5ft6in in 04/26/2025 Blood pressure systolic 120 mm Hg 04/26/2025 Weight 240 lbs 04/26/2025 BMI 38.73 kg/m2 04/26/2025 Procedures Procedure Date Ordered Date Performed Result Body Sit e 33141-Hxps Destruction, 1-14 09/14/2024 N/A 67309-TNOG SKIN LESIONS, 2 TO 4 09/14/2024 N/A N4039-LDBUMHBN DYSTROPHIC NAILS ANY # 09/14/2024 N/A 99045-Sxvf Destruction, 1-14 01/18/2025 N/A 19304-OYXK SKIN LESIONS, 2 TO 4 01/18/2025 N/A V5640-UKCYKJDT DYSTROPHIC NAILS ANY # 01/18/2025 N/A 87987-Xmez Destruction, 1-14 04/26/2025 N/A 65290-Qweigtnc Plate 04/26/2025 N/A 65052-Ljgtzram Plate Each Additional 04/26/2025 N/A 69903-GTQX SKIN LESIONS, 2 TO 4 04/26/2025 N/A Y4052-PZCMRUVN DYSTROPHIC NAILS ANY # 04/26/2025 N/A Encounters Encounter Location Date Provider Diagnosis [address] [address] 09/14/2024 Jayashree Black Other viral warts B07.8 ; Right foot drop M21.371 ; Pain in left foot M79.672 ; Type 2 diabetes mellitus with diabetic polyneuropathy E11.42 ; Injury of right peroneal nerve, initial encounter S84.11XA and Neuritis M79.[address] [address] 01/18/2025 Jayashree Black Other viral warts B07.8 ; Right foot drop M21.371 ; Pain in left foot M79.672 ; Type 2 diabetes mellitus with diabetic polyneuropathy E11.42 and Neuritis M79.[address] [address] 04/26/2025 Jayashree Fink Other viral warts B07.8 ; Pain in left foot M79.672 ; Type 2 diabetes mellitus with diabetic polyneuropathy E11.42 and Ingrown nail L60.[address] [facility] [address] 09/14/2024 Jayashreelibertad Fink [facility] [address] 11/18/2024 [facility] Aleks [facility] [address] 12/11/2024 Jayashree Fink Assessments Encounter Date Diagnosis [...] Treatment Pending Test Test Name Order Date 59430-Nxto Destruction, -14 07/20/2019 01569-Psji Destruction, -01/18/2020 31867-Aspt Destruction, -04/18/2020 78611-Mjig Destruction, -07/07/2020 73740-Hwub Destruction, -10/13/2020 76462-Bkpu Destruction, -01/12/2021 22100-Ixdc Destruction, 10-1305/15/2021 39322-Hsvx Destruction, -11/28/2021 76273-Efyp Destruction, 10-1303/29/2022 12966-Tdkl Destruction, 10-1307/02/2022 34670-Axeo Destruction, 10-1310/11/2022 70627-Tbju Destruction, 10-1304/25/2023 22768-Wqsa Destruction, 10-1308/05/2023 05572-Yexn Destruction, -01/17/2023 34392-Spob Destruction, -14 12/23/2023 87138-Glkd Destruction, -03/16/2024 92525-Pcbx Destruction, -06/22/2024 91222-Fjoy Destruction, 10-1309/14/2024 09364-Ugwe Destruction, -01/18/2025 74951-Oegx Destruction, -08/31/2021 94673-Xsjh Destruction, 10-1304/26/2025 80353-Auunkrki Plate 04/26/2025 39238-Hgncfqrz Plate 08/31/2021 00018-Wmjwwqhk Plate 03/16/2024 17987-Xyntbsjv Plate 08/05/2023 15205-Gradtqhg Plate 01/17/2023 70171-Buubuyrf Plate 03/29/2022 05771-Mngylxpk Plate 11/28/2021 27073-Uycgqpmz Plate 05/15/2021 13406-Dlnoosgk Plate 01/12/2021 20793-Cwpyxrog Plate 04/18/2020 64581-Zvcsmioc Plate Each Additional 27902-Mgqeyoiw Plate Each Additional 64553-KLW 11/21/2023 83265- Debride <25 sq cm 12/23/2023 66731-HOELWBM SKIN/TISSUE 12/05/2023 65862-GTLU SKIN LESIONS, 2 TO 4 12/05/19 23932-NHCS SKIN LESIONS, 2 TO 4 12/23/19 65855-TDDQ SKIN LESIONS, 2 TO 4 04/25/20 75425-QFMR SKIN LESIONS, 2 TO 4 01/18/20 84702-IHID SKIN LESIONS, 2 TO 4 08/05/20 71682-BYWH SKIN LESIONS, 2 TO 4 03/16/20 31179-CJLG SKIN LESIONS, 2 TO 4 09/14/20 79905-CMZI SKIN LESIONS, 2 TO 4 06/22/20 43116-QYTM SKIN LESIONS, 2 TO 4 04/26/20 93002-RGJZ SKIN LESIONS, 2 TO 4 08/31/20 18472-FFXE SKIN LESIONS, 2 TO 4 01/19/20 65966-DGLL SKIN LESIONS, 2 TO 4 04/18/20 32926-NCHA SKIN LESIONS, 2 TO 4 01/18/20 73493-EUXZ SKIN LESIONS, 2 TO 4 07/20/20 07108-SHAV SKIN LESIONS, 2 TO 4 07/07/20 85910-UZVP SKIN LESIONS, 2 TO 4 10/13/19 69316-WIKF SKIN LESIONS, 2 TO 4 01/13/20 28906-ENQN SKIN LESIONS, 2 TO 4 05/15/20 68962-CAVZ SKIN LESIONS, 2 TO 4 11/29/19 13040-PXWS SKIN LESIONS, 2 TO 4 03/29/20 39934-CHBV SKIN LESIONS, 2 TO 4 10/11/19 20824-CXQX SKIN LESIONS, 2 TO 4 07/02/20 B6484-XZSNSBKF DYSTROPHIC NAILS ANY # C9921-AALMVWTF DYSTROPHIC NAILS ANY # L0717-IWXDOMHO DYSTROPHIC NAILS ANY # M7627-PAGEXXIT DYSTROPHIC NAILS ANY # Y0041-CWIUKOEW DYSTROPHIC NAILS ANY # C5522-ZARJKOAS DYSTROPHIC NAILS ANY # P7155-PJOQHZZZ DYSTROPHIC NAILS ANY # I4345-RNMUFENE DYSTROPHIC NAILS ANY # L3845-MXNFOEOQ DYSTROPHIC NAILS ANY # Y9359-WIFHSUUK DYSTROPHIC NAILS ANY # N1816-VGCEGTTG DYSTROPHIC NAILS ANY # P3693-VAFMFAVB DYSTROPHIC NAILS ANY # A1077-SSMWNRNN DYSTROPHIC NAILS ANY # L9345-ZINWGQEP DYSTROPHIC NAILS ANY # A9419-LLGJXQEP DYSTROPHIC NAILS ANY # Y2115-PTJCRWBP DYSTROPHIC NAILS ANY # V4650-BJJTMEFH DYSTROPHIC NAILS ANY # I8284-YTCIFPZC DYSTROPHIC NAILS ANY # N1372-PKKFGPDS DYSTROPHIC NAILS ANY # O2617-ETOXFWCG DYSTROPHIC NAILS ANY # F3555-QHWKLCLG DYSTROPHIC NAILS ANY # L0697-INHJHUXZ DYSTROPHIC NAILS ANY # Next Appt Details Provider Name:Jayashree Fink , 07/29/2025 08:30:00 AM, [address] [place], [address], Insurance Providers Payer Name Payer Address Payer Phone Subscriber Number Group Number Insured Name Patient Relationship to Insured Coverage Start Date Coverage End Date Medicare National [employer] [address] [place] [address] [id number] Josefina Wilde Self - patient is the insured [facility] [address] [place] [address] [id number] Josefina Wilde Self - patient is the insured [employer] [address] [place] [address] [id number] MAINE WILDE Spouse - patient is the [...] surgery 06/25/22 Hospitalization History Reason Date(Month/Year) ER [facility]- Foot pain 08/23 [facility]- 3 days sinus surgery complication uncontrollable nose bleed 2021 [facility]- covid 09/2021
--- OUTSIDE RECORDS SUMMARY | 2025-07-13 10:34 | XMS_ITS | Patient Health Record ---
Author Organization [facility] Address [address] [place] [address] Care Team Providers Care Delivery Professional Name Role Phone TONY GARCES M.D. Primary Care Provider Unavaila Felicia Pool Unavailable [phone] Reason For Referral No Information Medications Medication SIG (Take, Route, Fr equency, Duration) Notes Start Date End Date Status Simvastatin 20MG 1 ORAL daily; Duration: -3 [facility] 2011 Active Spironolactone 25MG 1 ORAL daily; Duration: -3 [facility] 05/2013 Active Terazol 7 0.4 % 1 application at bed time Vaginal Once a day; Duration: 7 day(s) 05/10/2015 Active LORazepam 0.5 MG 1 tablet as needed O rally Twice a day Active Atenolol 50MG 1 ORAL DAILY; Duration: -3 [facility] 2 Active cloNIDine HCl 0.1MG 1 ORAL twice daily; Duration: -3 [facility] 09/09/2012 Active Lisinopril 40MG 1 ORAL daily; Duration: -3 [facility] 012 Active PARoxetine HCl 40MG 1 ORAL daily; Duration: -3 [facility] 07/2012 Active Problems Problem Type SNOMED Code ICD Code Onset Dates Problem Status W/U Status Risk Notes Problem Hyperlipidemia (34053121) Other and unspecified hyperlipidemia (272.4) Active confirmed Major Problem Depressive disorder (30013198) Depressive disorder, not elsewhere classified (311) Active confirmed Major Problem Glaucoma (26000154) Unspecified glaucoma (365.9) Active confirmed Diag Problem Benign essential hypertension (6867876) Essential hypertension, benign (401.1) Active confirmed Major Problem Female genital organ symptoms (700810867) Other specified symptom associated with female genital organs (625.8) Active confirmed Major Problem Postmenopausal bleeding (39579352) Postmenopausal bleeding (627.1) Active confirmed Diag Problem Menopausal symptom (63883778) Symptomatic menopausal or female climacteric states (627.2) Active confirmed Major Problem Left lower quadrant pain (867610510) Abdominal pain, left lower quadrant (789.04) Active confirmed Diag Problem Gynecological examination normal (483582536466948) Routine gynecological examination (V72.31) Active confirmed Problem Screening for malignant neoplasm of colon (536673388) Special screening for malignant neoplasms, colon (V76.51) Active confirmed Major Plan Of Treatment Pending Test Test Name Order Date Bone Density 10/19/2016 Urine Culture and Sensitivity 05/10/2015 Insurance Providers Payer Name Payer Address Payer Phone Subscriber Number Group Number Insured Name Patient Relationship to Insured Coverage Start Date Coverage End Date [employer] [address] [place] [address] [phone] [id number] JUNE ESTEVES Self - patient is the insured [facility] [address] [place], [place] [id number] JUNE ESTEVES Self - patient is the [...] TONSILLECTOMY APPENDECTOMY PITUITARY GLAND, [facility]UMOR EXCISION [facility] Hospitalization History Reason Date(Month/Year) CHILD SEE SURGICAL HX
--- OUTSIDE RECORDS SUMMARY | 2025-07-13 10:34 | XMS_ITS | Patient Health Record ---
Author Organization [facility] Address [address] [place] [address] Care Team Providers Care Gaming Surveillance Observer Name Role Phone Rebekah (RETIRED) Radu BLAS Primary Care Provide r Unavailable [facility] Unavailable [phone] Allergies Allergen (clinical drug ingredient) Drug/Non Drug Allergy documented on EMR Reaction Allergy Type Onset Date Status nifedipine NIFEdipine Unknown Drug Allergy Activ e Results Component Value Reference Range Notes Glucose, Whole Blood Reviewed date:02/13/2025 06:25:53 PM Interpretation: Performing Lab:[facility], [address] [place] [id number] Notes/Report: Glucose, Whole Blood 127 60-115 mg/dL METER # : [id number] Pathology (Not yet reviewed by provider) Interpretation: Performing Lab:[facility], [address] [place] [phone] Notes/Report: Reason For Referral No Information Medications Medication SIG (Take, Route, Frequency, Duration) Notes Start Date End Date Status Spironolactone 25 MG Oral; Duration: 90 Active Eliquis 5 MG TAKE 1 TABLET BY MOUTH TWICE DAILY Oral; Duration: 90 I2510,Unavaila ble Active PARoxetine HCl 40 MG 1 tablet in the morning Orally Once a day Active clonazePAM 0.5 MG TAKE 1 TABLET BY MOUTH DAILY NEEDED FOR ANXIETY Oral; Duration: 30 Active Latanoprost 0.005 % INSTILL ONE DROP INTO BOTH EYES AT BEDTIME Ophthalmic; Duration: 75 Active hydrALAZINE HCl 25 MG TAKE 1 TABLET BY MOUTH THREE TIMES DAILY Oral; Duration: 90 I2510,Unavaila ble Active Carvedilol 12.5 MG TAKE 1 TABLET BY MOUTH TWICE DAILY Oral; Duration: 90 I2510,Unavaila ble Active Lisinopril 20 MG 2 tablet Orally Once a day Active Simvastatin 20 MG 1 tablet in the evening Orally Once a day Active Brimonidine Tartrate 0.2 % INSTILL 1 DROP IN BOTH EYES TWICE DAILY Ophthalmic; Duration: 25 Active Vitamin D 2000 UNIT 1 tablet Orally Once a day Active Immunizations Vaccine Route Administration Date Status Comme nts Influenza Unknown 08/08/2018 Refused Problems Problem Type SNOMED Code ICD Code Onset Dates Problem Status W/U Status Risk Notes Problem Screening for malignant neoplasm of colon (097356574) Encounter for screening for malignant neoplasm of colon (Z12.11) Active confirmed Problem History of adenomatous polyp of colon (885555680) History of adenomatous polyp of colon (Z86.010) Active confirmed Problem Flatulence, eructation and gas pain (200735537) Bloating (R14.0) Active confirmed Problem Constipation (27518578) Constipation (K59.00) Active confirmed Problem Flatulence (668683980) Flatulence (R14.3) Active confirmed Problem Long-term current use of anticoagulant (346542697) Anticoagulant long-term use (Z79.01) Active confirmed Problem Pre-procedure evaluation check (630553505) Pre-procedural examination (Z01.818) Active confirmed Vital Signs Blood pressure diastolic 00 mm Hg 10/27/2024 Height 66 in 10/27/2024 Blood pressure systolic 00 mm Hg 10/27/2024 Weight 233 lbs 10/27/2024 BMI 37.60 kg/m2 10/27/2024 Encounters Encounter Location Date Provider Diagnosis [facility] [address] [place], [place] [id number] 02/12/2025 [facility] Colon cancer screeni ng Z12.11 ; Adenomatous colon polyp D12.6 ; Diverticulosis of large intestine without perforation or abscess without bleeding K57.30 and Other hemorrhoids K64.8 [facility] [address] [place] [address] 10/27/2024 [facility] History of adenomato us polyp of colon Z86.010 ; Constipation K59.00 ; Encounter for screening for malignant neoplasm of colon Z12.11 ; Pre-procedural examination Z01.818 and Anticoagulant long-term use Z79.01 [facility] [address] [place] [address] 10/27/[address] [facility] [address] [place] [address] 06/18/2025 [facility] Assessments Encounter Date Diagnosis (ICD Code) Assessment [...] [place] [address] [place] [address] [id number] ANGEL JOSEFINA WALLER Self - patient is the insured [facility] [address] [place], [place] [phone] [id number] ANGEL JOSEFINA WALLER Self - patient is the insured [employer] [address] [place] [address] [phone] [id number] ANGEL SRIDHARJOSEFINA Self - patient is the insured Medical [...] on the right D&C Pituitary gland surgery Tomas ESCOTO
== END 2025-07-13 10:05 | disposition home or self-care (01) ==
LOC: HO.HUSH 09:31
PROVIDERS: PCP Internal Medicine; Visit Provider Nurse Practitioner Family
DX: Z13.9 Encounter for screening, unspecified (principal); R31.0 Gross hematuria
CPT/HCPCS: 99213; G2211

== ENCOUNTER 2025-07-14 09:00 | Outpatient (RCR) | payer MEDICARE, BC, OTHER, SELFPAY ==
--- NOTE | 2025-06-16 13:16 | MHC.PT.EP ---
[facility] [place] Office [place] Office [place] Office [address] Dandre [place] [address] [phone] F: [phone] F: [phone] F: [phone] F: [phone] Physical Therapy Plan of Care Date of Evaluation: 06/16/25 Date of Surgery: Diagnosis: This is a 69 yo female presenting to skilled PT with a script for R foot drop. Assessment: This is a 69 yo female presenting to skilled PT with a script for R foot drop. Last eval from 09/2024: This patient came in to PT today reporting a series of symptoms. She reports that she noticed a debilitating groin pain a few months back. From there she started to have aching in her leg. Her symptoms run anteriorly and medially. She went to the ED due to pain and multiple falls a number of times. There she was given pain medication, had an US to rule out DVT, had an x-ray of the hip which was grossly normal. She was also given Cyclobenzaprine and Prednisone in the ED which did not help. She was referred to ortho for her hip symptoms. At ortho she was dx with a foot drop that she had not realized was happening, given a taper for the prednisone, referral for her right hip injection at pain management and given an order for PT. Additionally, Dr. Lucio ordered a stat MRI for assessment of her back due to the foot drop. MRI results noted: Multilevel lumbar spondylosis without significant spinal canal stenosis. There is mild left neural foraminal narrowing at L4-L5 and mild left greater than right neural foraminal narrowing at L5-S1. She reports little to no back pain. She was then sent to pain management. In pain management she was scheduled for right hip intra-articular steroid injection with local and fluoroscopy, referred to neurology, referred for a right AFO for ankle/foot support, as well as referred for neurodiagnostic test for RLE to rule out peroneal neuropathy. She is here at PT today reporting frustration and fear. She continues to have groin pain which has improved some (described as achy), R LE symptoms (run anterior and medial, described as achy) and ankle/foot numbness (with foot drop). She really is unsure when her foot drop started and was unware she even had it until it was mentioned by ortho. She reports that she was hoping for answers via PT. Currently, she is using lidocaine patches and tylenol for pain relief. She is also using a straight cane which is not her normal baseline. Patient is usually I with gait, driving and ADLs at baseline. She lives with her at home and has full flight of stairs to the basement. 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 Assessment reveals pain that ranges from severe to mild from hip to ankle. Patient demos decreased R LE ROM (primarily ankle), strength of B LE's but primarily the ankle, impaired sensation at LE, impaired reflexes at LE, impaired gait with high steppage and no DF, decreased balance due to drop foot and impaired posture with increased hip ER, ankle PF, forward trunk and rounded shoulders. Based on functional limitations, impaired QOL and pain tolerance patient is a good candidate for skilled PT 2x/wk for 4wks. Patient has now returned with a new AFO, diabetic footwear and having had an injection in L knee and R hip/low back. She is now seeing neurology who is running another EMG and nerve conduction test in June as well as ordered PT again. PT DC note states: Patient has come to 5 visits of PT with no improvement in ROM. We trialed ther-ex for ROM, manual for soft tissue release and PROM stretching. She is still unable to actively move her ankle. At this point I am DCing her back to MD due to lack in progress. I did educate her on her symptoms, PT capabilities and appropriate referrals. She has a good HEP which I recommended she continue on her own at this time. Patient is questioning why she has been referred back to PT when it did not help the last time. She reports her symptoms now are just a funny feeling from her ankle down, no pain noted except at the opp knee which x-ray notes has mod-severe tricompartmental arthritis. Assessment reveals pain is 0/10. Patient demos decreased R LE ROM (primarily ankle), strength of B LE's but primarily the ankle, impaired sensation at LE, impaired reflexes at LE, impaired gait with high steppage and no DF, decreased balance due to drop foot and impaired posture with increased hip ER, ankle PF, forward trunk and rounded shoulders. Based on functional limitations, impaired QOL and pain tolerance patient is a good candidate for skilled PT 1x/wk for 5wks. Frequency and Duration: The patient will be seen 1x/wk for 5wks Short Term Goals: Understand anatomy, PT POC and will be I in HEP Patient will understand PT limits and capabilities for improving this diagnosis Supervisor Brake Repair Goals: Patient will understand balance strategies and safely execute on own with ther-ex program Make frequent skin checks and understand proper footwear, use of AFO Patient will demonstrate improved hip strength to at least 5/5 Treatment Plan: Modalities to reduce pain, spasms and effusion. Manual therapy to restore motion and function. Therapeutic exercise to improve strength and flexibility. Neuromuscular re-education for posture and balance. Therapeutic activities to return to functional activities of daily living. Electronically signed by: Alexia Do PT Please sign and return to therapist. Thank you for your referral.
--- NOTE | 2025-07-15 10:27 | MHC.PT.DC ---
[facility] [place] [facility] [place] [facility] [place] [facility] [address] Dandre [place] [address] [phone] F: [phone] F: [phone] F: [phone] F: [phone] Physical Therapy Discharge Report Diagnosis: This is a 69 yo female presenting to skilled PT with a script for R foot drop. Date of Surgery: Date of Evaluation: 06/16/25 Date of Discharge: 07/15/25 Treatments to Date: 4 Cancellations to Date: 0 No Shows to Date: 0 Discharge Status: Independent with HEP Recommend MD Follow-up Discharge Summary: Patient has come to another 4 weeks of therapy. She has a nerve conduction test this Saturday. At this point she is not making any new gains with strength or her drop foot. She has a good HEP to continue on her own at this time. Due to lack of progress with therapy, patient to be referred back to MD for further work up and continue HEP in the mean time. Electronically signed by: Alexia Do PT Please sign and return to therapist. Thank you for your referral.
== END 2025-07-15 10:28 | disposition home or self-care (01) ==
LOC: HO.PTCHIC 09:00
PROVIDERS: PCP Internal Medicine; Visit Provider Psychiatry & Neurology Neurology
DX: M21.371 Foot drop, right foot (principal); M54.17 Radiculopathy, lumbosacral region
CPT/HCPCS: 97110; 97162

== ENCOUNTER 2025-07-16 13:01 | Outpatient (REF) | payer MEDICARE, BC, OTHER, SELFPAY ==
--- OUTSIDE RECORDS SUMMARY | 2024-09-17 04:30 | XMS_ITS ---
Author Organization [facility] Address [address] [place] [address] Care Team Providers Care Optical Instrument Inspector Name Role Phone Jaqueline No Primary Care Provider Jayashree Coleman [phone] REASON FOR VISIT Seen Sooner Encounters Encounter Location Date Provider Diagnosis [address] [address] 09/17/2024 Jayashree Fink Plan Of Treatment Next Appt Details Provider Name:Jayashree Fink , 07/29/2025 08:30:00 AM, [address] [place], [address], Progress Notes * Alivia WILDEOB:03/1955 (70 yo F)Acc No.[id number]:09/17/2024 Progress Note Patient: Ceferino MOSERine Provider: Anat Fink DPM :1955 A ge:69 Y S ex:Female Date:09/17/2024 Address:[address] [place] [address], [place] [facility] Pcp:Jaqueline No Subjective: * Chief Complaints: * [...] 11/18/2023 Generated for Kun pelayo/Isaiah/Alok on: 1 03:38 PM EDT
--- OUTSIDE RECORDS SUMMARY | 2024-10-12 05:00 | XMS_ITS ---
Author Organization [facility] Address [address] [place] [address] Care Team Providers Care Biomedical Equipment Support Specialist Name Role Phone Jaqueline No Primary Care Provider Jayashree Coleman [phone] REASON FOR VISIT Seen Sooner Encounters Encounter Location Date Provider Diagnosis [address] [address] 10/12/2024 Jayashree Fink Plan Of Treatment Next Appt Details Provider Name:Jayashree Fink , 07/29/2025 08:30:00 AM, [address] [place], [address], Progress Notes * Alivia WILDEOB:03/1955 (70 yo F)Acc No.[id number]:10/12/2024 Progress Note Patient: Ceferino MOSERine Provider: Anat Fink DPM :1955 A ge:69 Y S ex:Female Date:10/12/2024 Address:[address] [place] [address], [place] [address] [facility] Pcp:Jaqueline No Subjective: * Chief Complaints: * [...] 10/12/2024 Generated for Kun pelayo/Isaiah/Alok on: 1 03:38 PM EDT
--- OUTSIDE RECORDS SUMMARY | 2024-12-17 05:15 | XMS_ITS ---
Author Organization [facility] Address [address] [place] [address] Care Team Providers Care Chief Security And Safety Officer Name Role Phone Jaqueline No Primary Care Provider Jayashree Coleman [phone] Encounters Encounter Location Date Provider Diagnosis [address] [address] 12/17/2024 Jayashree Fink Plan Of Treatment Next Appt Details Provider Name:Jayashree Fink , 07/29/2025 08:30:00 AM, [address] [place], [address], Progress Notes * Alivia WILDEOB:03/1955 (70 yo F)Acc No.[id number]:12/17/2024 Progress Note Patient: Ceferino MOSERine Provider: Anat Fink DPM :1955 A ge:69 Y S ex:Female Date:12/17/2024 Address:[address] [place] [address], [place] [facility] Pcp:Jaqueline No Subjective: * Chief Complaints: * [...] 12/17/2024 Generated for Kun pelayo/Isaiah/Alok on: 1 03:39 PM EDT
--- OUTSIDE RECORDS SUMMARY | 2025-02-12 09:00 | XMS_ITS ---
Author Organization [facility] Address [address] [place] [phone] Care Team Providers Care Storage Management Consultant Name Role Phone Rebekah (RETIRED) Radu BLAS Primary Care Provide r Good Cordero [phone] REASON FOR VISIT screening,hx polyps Encounters Encounter Location Date Provider Diagnosis [facility] [place] [address] [place] [id number] 02/12/2025 Good Berry Colon cancer scree kristen [...] JUNE IBARRA MDOB: 1955 (70 yo F)Acc No.[id number]:02/12/2025 COLON WITH MAC Patient: JUNE CALLEJAS Provider: Vince Berry MD :1955 A ge:69 Y S ex:Female Date:02/12/2025 Address:[address] [place] [address], [id number] Pcp:Radu Welch (RETIRED )MD Subjective: * Chief [...] 0 02/12/2025 Generated for Kun pelayo/Isaiah/Ambaritting on: 1 03:38 PM EDT
--- NOTE | 2025-07-16 13:05 | EMG_ITS ---
Chief complaint: Continues to have right footdrop EMG done by me 10/14/2024: IMPRESSION: 1. This is an abnormal study. 2. There is electrodiagnostic evidence for acute/subacute right L5 radiculopathy. 3. Most likely has underlying sensorimotor peripheral neuropathy. 4. There is no electrodiagnostic evidence for focal peroneal neuropathy or tibial neuropathy, or lumbosacral plexopathy. Reason for referral: Evaluate for neuropathy Referred by: Dr. Heard Procedure done: Right lower extremity NCS/EMG Precautions and/or limitations: Patient on Eliquis. The limb temperature was monitored continuously and remained between 32-36 degrees C during the performance of the NCS. Nerve Conduction Studies Anti Sensory Summary Table ?Stim Site NR Onset (ms) Norm Onset (ms) Peak (ms) Norm Peak (ms) O-P Amp (?V) Norm O-P Amp Site1 Site2 Delta-0 (ms) Dist (cm) Faraz (m/s) Norm Faraz (m/s) Right Sural Anti Sensory (Lat Mall) Calf NR <4.0 >5.0 Calf Lat Mall 14.0 Motor Summary Table ?Stim Site NR Onset (ms) Norm Onset (ms) O-P Amp (mV) Norm O-P Amp iAmp (mV) Amp (1st) (%) Site1 Site2 Delta-0 (ms) Dist (cm) Faraz (m/s) Norm Faraz (m/s) Right Peroneal Motor (Ext Dig Brev) Ankle NR <4.0 >2.5 Ankle Ext Dig Brev 0.0 B Fib NR B Fib Ankle 0.0 >40 Poplt NR Poplt B Fib 0.0 >40 Right Tibial Motor (Abd Castellanos Brev) Ankle ? 5.2 <5 0.7 >2.5 1.1 100.0 Ankle Abd Castellanos Brev 5.2 39.0 75 Knee ? 14.3 0.4 0.6 57.1 Knee Ankle 9.1 0.0 >40 EMG ?Side Muscle Nerve Root Ins Act Fibs Psw Amp Dur Poly Recrt Int Pat Comment Right AbdHallucis MedPlantar S1-2 Nml Nml Nml Nml Nml 0 Nml Complete Right AntTibialis Dp Br Peron L4-5 Incr 1+ 1+ Nml Nml 0 Nml Complete Right PostTibialis Tibial L5, S1 Nml Nml Nml Nml Nml 0 Nml Complete Right MedGastroc Tibial S1-2 Nml Nml Nml Nml Nml 0 Nml Complete Right VastusMed Femoral L2-4 Nml Nml Nml Nml Nml 0 Nml Complete Right Peroneus Long Sup Br Peron L5-S1 Incr 1+ 1+ Nml Nml 0 Reduced Complete Right BicepsFemS Sciatic L5-S1 Nml Nml Nml Nml Nml 0 Nml Complete FINDINGS: Right peroneal nerve shows absent response, same as previous study. Right tibial nerve shows very small amplitudes now, which is worse from previous study. Right sural nerve shows absent response, same as previous study. Concentric needle EMG was performed in selected muscles of the right lower extremity. Study revealed signs of electric abnormalities as shown in the table above. Right peroneus longus and tibialis anterior shows increased insertional activity, PSWs and fibrillations. Right peroneus longus shows reduced recruitment. No denervation seen on AH, medial gastrocnemius, posterior tibialis or short head of biceps femoris. IMPRESSION: 1. This is an abnormal study. 2. Sensorimotor peripheral neuropathy appears worse than previous study. 3. Needle EMG suggestive that she also has right deep peroneal neuropathy, which would also explain the footdrop. 4. Needle EMG showed denervation on peroneal innervated muscles but not on any other L5-S1 innervated muscles. There is no longer evidence for lumbar radiculopathy. Note that I was not able to do needle EMG for lumbar paraspinals because patient is on Eliquis. Thank you for your kind referral. Barbie Florentino MD, KENN[place] Board Certified, [place] Board of Physical Medicine and Rehabilitation (ABPMR) Board Certified, [place] Board of Electrodiagnostic Medicine (ABEM) CODIN [id number] [facility]
--- OUTSIDE RECORDS SUMMARY | 2025-07-16 15:39 | XMS_ITS | Clinical Summary ---
Author Organization [facility] Address [address] [place] [address] Phone Care Team Providers Care Manager Of Development Name Role Phone Radu Welch MD Primary Care Provider [phone] Allergies No known active allergies Medications lisinopril [...] also be consided for placement of a spa receptionist. They can see their dentist or an [...] average glucose, using the formula of the B3M-Zcjprou Average Glucose study (ADAG), Diabetes Care, Vol.31,#8, [...] Most Recently Relevant to Health Maintenance Insurance [facility] Medicare [facility] Medicare [facility] Care Teams Manager Of Development Relationship Specialty Start Date End Date Radu Welch MD [address] [place] [facility] - General 10/10/20
--- OUTSIDE RECORDS SUMMARY | 2025-07-16 15:39 | XMS_ITS | Patient Health Record ---
Author Organization [employer] [facility] Address [address] [place] [address] Care Team Providers Care Helmet Coverer Name Role Phone TONY GARCES M.D. Primary Care Provider Unavaila Felicia Pool Unavailable [phone] Reason For Referral No Information Medications Medication SIG (Take, Route, Fr equency, Duration) Notes Start Date End Date Status Simvastatin 20MG 1 ORAL daily; Duration: -3 [facility] 2011 Active Spironolactone 25MG 1 ORAL daily; Duration: -3 [facility] 05/2013 Active Terazol 7 0.4 % 1 application at bed time Vaginal Once a day; Duration: 7 day(s) 05/10/2015 Active LORazepam 0.5 MG 1 tablet as needed O rally Twice a day Active Atenolol 50MG 1 ORAL DAILY; Duration: -3 [facility] 2 Active cloNIDine HCl 0.1MG 1 ORAL twice daily; Duration: -3 [facility] 09/09/2012 Active Lisinopril 40MG 1 ORAL daily; Duration: -3 [facility] 012 Active PARoxetine HCl 40MG 1 ORAL daily; Duration: -3 [facility] 07/2012 Active Problems Problem Type SNOMED Code ICD Code Onset Dates Problem Status W/U Status Risk Notes Problem Hyperlipidemia (98486219) Other and unspecified hyperlipidemia (272.4) Active confirmed Major Problem Depressive disorder (14737154) Depressive disorder, not elsewhere classified (311) Active confirmed Major Problem Glaucoma (33684004) Unspecified glaucoma (365.9) Active confirmed Diag Problem Benign essential hypertension (7337396) Essential hypertension, benign (401.1) Active confirmed Major Problem Female genital organ symptoms (335071534) Other specified symptom associated with female genital organs (625.8) Active confirmed Major Problem Postmenopausal bleeding (06977159) Postmenopausal bleeding (627.1) Active confirmed Diag Problem Menopausal symptom (13758763) Symptomatic menopausal or female climacteric states (627.2) Active confirmed Major Problem Left lower quadrant pain (902666627) Abdominal pain, left lower quadrant (789.04) Active confirmed Diag Problem Gynecological examination normal (856944374213510) Routine gynecological examination (V72.31) Active confirmed Problem Screening for malignant neoplasm of colon (518036538) Special screening for malignant neoplasms, colon (V76.51) Active confirmed Major Plan Of Treatment Pending Test Test Name Order Date Bone Density 10/19/2016 Urine Culture and Sensitivity 05/10/2015 Insurance Providers Payer Name Payer Address Payer Phone Subscriber Number Group Number Insured Name Patient Relationship to Insured Coverage Start Date Coverage End Date [employer] [address] [place] [address] [phone] [id number] JUNE ESTEVES Self - patient is the insured [facility] L[facility] [address] [place], [place] [phone] [id number] JUNE ESTEVES Self - patient is the [...] TONSILLECTOMY APPENDECTOMY PITUITARY GLAND, [facility]OR [facility]CISION [facility] Hospitalization History Reason Date(Month/Year) CHILD SEE SURGICAL HX
--- OUTSIDE RECORDS SUMMARY | 2025-07-16 15:39 | XMS_ITS | Patient Health Record ---
Author Organization [facility] Address [address] [place] [address] Care Team Providers Care Hematology Oncology Consultant Name Role Phone Rebekah (RETIRED) Radu BLAS Primary Care Provide r Unavailable [facility] Unavailable [phone] Allergies Allergen (clinical drug ingredient) Drug/Non Drug Allergy documented on EMR Reaction Allergy Type Onset Date Status nifedipine NIFEdipine Unknown Drug Allergy Activ e Results Component Value Reference Range Notes Glucose, Whole Blood Reviewed date:02/13/2025 06:25:53 PM Interpretation: Performing Lab:[facility], [address] [place] [id number] Notes/Report: Glucose, Whole Blood 127 60-115 mg/dL METER # : [id number] Pathology (Not yet reviewed by provider) Interpretation: Performing Lab:[facility], [address] [place] [phone] Notes/Report: Reason For Referral No Information Medications [...] Problem Screening for malignant neoplasm of colon (729835637) Encounter for screening for malignant neoplasm of colon (Z12.11) Active confirmed Problem History of adenomatous polyp of colon (506733675) History of adenomatous polyp of colon (Z86.010) Active confirmed Problem Flatulence, eructation and gas pain (819256753) Bloating (R14.0) Active confirmed Problem Constipation (82319035) Constipation (K59.00) Active confirmed Problem Flatulence (497272972) Flatulence (R14.3) Active confirmed Problem Long-term current use of anticoagulant (220817410) Anticoagulant long-term use (Z79.01) Active confirmed Problem Pre-procedure evaluation check (224032044) Pre-procedural examination (Z01.818) Active confirmed Vital Signs Blood pressure diastolic 00 mm Hg 10/27/2024 Height 66 in 10/27/2024 Blood pressure systolic 00 mm Hg 10/27/2024 Weight 233 lbs 10/27/2024 BMI 37.60 kg/m2 10/27/2024 Encounters Encounter Location Date Provider Diagnosis [facility] [place] [address] [place], [place] [id number] 02/12/2025 [facility] Colon cancer screeni ng Z12.11 ; Adenomatous colon polyp D12.6 ; Diverticulosis of large intestine without perforation or abscess without bleeding K57.30 and Other hemorrhoids K64.8 [facility] [address] [place] [address] 10/27/2024 Good Berry History of adenomato us polyp of colon Z86.010 ; Constipation K59.00 ; Encounter for screening for malignant neoplasm of colon Z12.11 ; Pre-procedural examination Z01.818 and Anticoagulant long-term use Z79.01 [facility] [address] [place] [address] 10/27/2024 Good Berry [facility] [address] [place] [address] 06/18/2025 Good Berry Assessments Encounter Date Diagnosis [...] [place] [address] [place] [address] [id number] ANGEL JOSEFINA WALLER Self - patient is the insured [facility] [address] [place], [place] [id number] [phone] [id number] ANGEL JOSEFINA WALLER Self - patient is the insured [employer] [address] [place] [address] [phone] [id number] ANGEL SRIDHARJOSEFINA Self - patient is the insured Medical (General) History Medical History History ICD Code Colonoscopy 03-17-2007 and in 11/2012 with the removal of a tubular adenoma Denies [place],CVA,Lung disease,renal disease HTN Hyperlipidemia GERD--normal upper endoscopy in 11/2012 IBS---normal duodenal and gastric biopsi es--no H.pylori--EGD in 11/2012 Anxiety/Depression Uterine fibroid Sleep apnea-uses a CPAP machine Glaucoma Diet-controlled diabetes Drop foot 07/2024 Afib-Dr. Morel Negative colonoscopy in 09/2018 Depression Surgical History Surgery Date(Month/Year) Carpal tunnel on the right D&C Pituitary gland surgery Tomas ESCOTO
--- OUTSIDE RECORDS SUMMARY | 2025-07-16 15:39 | XMS_ITS | Patient Health Record ---
Author Organization [facility] Address [address] [place] [address] Care Team Providers Care Math And Physics Instructor Name Role Phone Jaqueline No Primary Care Provider Jayashree Coleman Unavailable [phone] Allergies Allergen (clinical drug ingredient) Drug/Non Drug [...] Polyneuropathy due to type 2 diabetes mellitus (647383606) Type 2 diabetes mellitus with diabetic polyneuropathy (E11.42) Active confirmed Vital Signs Blood pressure diastolic 70 mm Hg 04/26/2025 Height 5ft6in in 04/26/2025 Blood pressure systolic 120 mm Hg 04/26/2025 Weight 240 lbs 04/26/2025 BMI 38.73 kg/m2 04/26/2025 Procedures Procedure Date Ordered Date Performed Result Body Sit e 15972-Kxyy Destruction, 1-14 09/14/2024 N/A 10024-EZOZ SKIN LESIONS, 2 TO 4 09/14/2024 N/A S9444-SHBQKCWK DYSTROPHIC NAILS ANY # 09/14/2024 N/A 28392-Ketu Destruction, 1-14 01/18/2025 N/A 41150-KMVP SKIN LESIONS, 2 TO 4 01/18/2025 N/A S5602-FBXEKAAS DYSTROPHIC NAILS ANY # 01/18/2025 N/A 85573-Ldtd Destruction, 1-14 04/26/2025 N/A 81427-Mcxklysq Plate 04/26/2025 N/A 99121-Flderdsz Plate Each Additional 04/26/2025 N/A 65841-BWWW SKIN LESIONS, 2 TO 4 04/26/2025 N/A X8855-AXERCXWD DYSTROPHIC NAILS ANY # 04/26/2025 N/A Encounters Encounter Location Date Provider Diagnosis [address] [address] 09/14/2024 Jayashree Black Other viral warts B07.8 ; Right foot drop M21.371 ; Pain in left foot M79.672 ; Type 2 diabetes mellitus with diabetic polyneuropathy E11.42 ; Injury of right peroneal nerve, initial encounter S84.11XA and Neuritis M79.[address] [address] 01/18/2025 Jayashree Black Other viral warts B07.8 ; Right foot drop M21.371 ; Pain in left foot M79.672 ; Type 2 diabetes mellitus with diabetic polyneuropathy E11.42 and Neuritis M79.[address] [address] 04/26/2025 Jayashree Fink Other viral warts B07.8 ; Pain in left foot M79.672 ; Type 2 diabetes mellitus with diabetic polyneuropathy E11.42 and Ingrown nail L60.[address] [facility] [address] 09/14/2024 Jayashreelibertad Fink [facility] [address] 11/18/2024 [facility] [address] 12/11/2024 Jayashree Fink Assessments Encounter Date Diagnosis [...] Treatment Pending Test Test Name Order Date 85803-Lejv Destruction, -14 07/20/2019 08415-Xvll Destruction, 10-1301/18/2020 85587-Tygq Destruction, -04/18/2020 74801-Ghmx Destruction, -07/07/2020 48151-Yukk Destruction, -10/13/2020 16563-Abxa Destruction, 10-1301/12/2021 30830-Pcvo Destruction, 10-1305/15/2021 76325-Mytp Destruction, 10-1308/31/2021 84794-Pmlc Destruction, 10-1311/28/2021 65656-Aooi Destruction, 10-1303/29/2022 84525-Dbbj Destruction, 10-1307/02/2022 97164-Plvd Destruction, 10-1310/11/2022 29627-Rdkb Destruction, 10-1304/25/2023 55774-Glnm Destruction, 10-1308/05/2023 54266-Okjw Destruction, -01/17/2023 57852-Pyke Destruction, -14 12/23/2023 92969-Clxl Destruction, -03/16/2024 09114-Sedl Destruction, 10-1306/22/2024 21087-Qopn Destruction, -09/14/2024 09769-Nqxr Destruction, 10-1301/18/2025 58626-Kfim Destruction, 10-1304/26/2025 09312-Iacuqlln Plate 04/26/2025 25051-Wvbxzraa Plate 03/16/2024 05200-Brjjjcdw Plate 08/05/2023 24505-Kzqroxht Plate 01/17/2023 17712-Dftksgci Plate 03/29/2022 67326-Guvpkwpe Plate 11/28/2021 58676-Hqwbroni Plate 08/31/2021 59709-Ysvumtrw Plate 05/15/2021 17719-Fqgncggy Plate 01/12/2021 57325-Uirklxvl Plate 04/18/2020 83264-Oepbnzol Plate Each Additional 75105-Irkurklo Plate Each Additional 16087-LGE 11/21/2023 84576- Debride <25 sq cm 12/23/2023 89813-UPFUQTX SKIN/TISSUE 12/05/2023 00415-KLTX SKIN LESIONS, 2 TO 4 12/05/19 47167-HCPO SKIN LESIONS, 2 TO 4 08/05/20 19689-HBBT SKIN LESIONS, 2 TO 4 01/18/20 14218-GCUJ SKIN LESIONS, 2 TO 4 10/11/19 96811-YORS SKIN LESIONS, 2 TO 4 07/02/20 48163-PJWZ SKIN LESIONS, 2 TO 4 12/23/19 10375-UWQD SKIN LESIONS, 2 TO 4 04/25/20 71710-NZSM SKIN LESIONS, 2 TO 4 03/16/20 60010-ULXP SKIN LESIONS, 2 TO 4 04/26/20 40922-ZNID SKIN LESIONS, 2 TO 4 01/19/20 99393-ALWY SKIN LESIONS, 2 TO 4 09/14/20 04031-XGYT SKIN LESIONS, 2 TO 4 06/22/20 62620-WLYI SKIN LESIONS, 2 TO 4 04/18/20 07500-ZNQF SKIN LESIONS, 2 TO 4 01/18/20 13093-LRZC SKIN LESIONS, 2 TO 4 07/20/20 52016-LEIQ SKIN LESIONS, 2 TO 4 07/07/20 15641-RIZF SKIN LESIONS, 2 TO 4 10/13/19 82853-GROH SKIN LESIONS, 2 TO 4 01/13/20 62386-KSJV SKIN LESIONS, 2 TO 4 05/15/20 75001-VXQQ SKIN LESIONS, 2 TO 4 08/31/20 38317-ORSP SKIN LESIONS, 2 TO 4 11/29/19 72714-JWKO SKIN LESIONS, 2 TO 4 03/29/20 H5464-DBGNOCUI DYSTROPHIC NAILS ANY # Q0385-HMQJCRDW DYSTROPHIC NAILS ANY # B1924-GRDRGQOJ DYSTROPHIC NAILS ANY # P8601-YXUYFKMJ DYSTROPHIC NAILS ANY # H9809-YVQWASFN DYSTROPHIC NAILS ANY # C5569-VUPDVGQO DYSTROPHIC NAILS ANY # U7004-QGZNCOCQ DYSTROPHIC NAILS ANY # W8264-LNGJGLKG DYSTROPHIC NAILS ANY # I4591-KWKBRTBO DYSTROPHIC NAILS ANY # V7586-SMTPTJXB DYSTROPHIC NAILS ANY # V0896-ELQHOWPZ DYSTROPHIC NAILS ANY # P1407-JVAWIPRR DYSTROPHIC NAILS ANY # B1626-ANCVNODH DYSTROPHIC NAILS ANY # U8384-UKTVBNPK DYSTROPHIC NAILS ANY # F6456-QOIKYNCK DYSTROPHIC NAILS ANY # D1790-JTSDASZX DYSTROPHIC NAILS ANY # T1839-WSUMIQDX DYSTROPHIC NAILS ANY # Z9827-WRLMOLEU DYSTROPHIC NAILS ANY # L5146-FJLMSGCT DYSTROPHIC NAILS ANY # H5416-BCXUSMTV DYSTROPHIC NAILS ANY # L8533-VCMTKSUE DYSTROPHIC NAILS ANY # S5232-ETXJQPHZ DYSTROPHIC NAILS ANY # Next Appt Details Provider Name:Jayashree Fink , 07/29/2025 08:30:00 AM, [address] [place], [address], Insurance Providers Payer Name Payer Address Payer Phone Subscriber Number Group Number Insured Name Patient Relationship to Insured Coverage Start Date Coverage End Date Medicare [employer] [address] [place] [address] [id number] Josefina Wilde Self - patient is the insured [facility] [address] [place] [address] [id number] Josefina Wilde Self - patient is the insured [employer] [address] [place] [address] [phone] [id number] MAINE WILDE Spouse - patient is the [...] [facility] [place]- 3 days sinus surgery complication uncontrollable nose bleed 2021 [facility] [place]- covid 09/2021
== END 2025-07-16 13:02 | disposition home or self-care (01) ==
LOC: HO.NEURO 13:01
PROVIDERS: PCP Internal Medicine; Visit Provider Psychiatry & Neurology Neurology
DX: M54.17 Radiculopathy, lumbosacral region (principal); R20.0 Anesthesia of skin; M21.371 Foot drop, right foot
CPT/HCPCS: 95886; 95908

== ENCOUNTER → 2025-07-16 13:05 | Outpatient (BNV) | payer MEDICARE, BC, OTHER, SELFPAY | PROVIDERS: PCP Internal Medicine; Visit Provider Physical Medicine & Rehabilitation | DX: G62.89 Other specified polyneuropathies (principal) | CPT/HCPCS: 95886; 95908 ==

== ENCOUNTER 2025-07-30 14:23 | Outpatient (AMB) | payer MEDICARE, BC, OTHER, SELFPAY ==
--- OUTSIDE RECORDS SUMMARY | 2024-09-17 04:30 | XMS_ITS ---
Author Organization [facility] Address [address] [place] [address] Care Team Providers Care Mathematics Improvement Teacher Name Role Phone Jaqueline No Primary Care Provider Jayashree Coleman [phone] REASON FOR VISIT Seen Sooner Encounters Encounter Location Date Provider Diagnosis [address] [address] 09/17/2024 Jayashree Fink Plan Of Treatment Next Appt Details Provider Name:Jayashree Fink , 11/25/2025 09:15:00 AM, [address] [place], [address], Progress Notes * Alivia WILDEOB:03/1955 (70 yo F)Acc No.[id number]:09/17/2024 Progress Note Patient: Ceferino MOSERine Provider: Anat Fink DPM :1955 A ge:69 Y S ex:Female Date:09/17/2024 Address:[address] [place] [address], [place] [address]ras [facility] Pcp:Jaqueline No Subjective: * Chief Complaints: * 1 . Seen Sooner. * Medical History: Objective: * Vitals: Assessment: Plan: * Treatment: * Images: * The named appointment provid er may or may not be the originator of this progress note, and it is not deemed complete until electronically signed by the appointment provider. Sign off status: Pending * Provider: Anat Fink DPM Date: 1 11/18/2023 Generated for Kun pelayo/Isaiah/Alok on: 1 03:01 PM EDT
--- OUTSIDE RECORDS SUMMARY | 2024-10-12 05:00 | XMS_ITS ---
Author Organization [facility] Address [address] [place] [address] Care Team Providers Care Tank Charger Name Role Phone Jaqueline No Primary Care Provider Jayashree Coleman [phone] REASON FOR VISIT Seen Sooner Encounters Encounter Location Date Provider Diagnosis [address] [address] 10/12/2024 Jayashree Fink Plan Of Treatment Next Appt Details Provider Name:Jayashree Fink , 11/25/2025 09:15:00 AM, [address] [place], [address], Progress Notes * Alivia WILDEOB:03/1955 (70 yo F)Acc No.[id number]:10/12/2024 Progress Note Patient: Ceferino MOSERine Provider: Anat Fink DPM :1955 A ge:69 Y S ex:Female Date:10/12/2024 Address:[address] [place] [address], [place] [facility] Pcp:Jaqueline No Subjective: * Chief Complaints: * [...] 10/12/2024 Generated for Kun pelayo/Isaiah/Alok on: 1 03:01 PM EDT
--- OUTSIDE RECORDS SUMMARY | 2024-12-17 05:15 | XMS_ITS ---
Author Organization [facility] Address [address] [place] [address] Care Team Providers Care Central Station Operator Name Role Phone Jaqueline No Primary Care Provider Jayashree Coleman [phone] Encounters Encounter Location Date Provider Diagnosis [address] [address] 12/17/2024 Jayashree Fink Plan Of Treatment Next Appt Details Provider Name:Jayashree Fink , 11/25/2025 09:15:00 AM, [address] [place], [address], Progress Notes * Alivia WILDEOB:03/1955 (70 yo F)Acc No.[id number]:12/17/2024 Progress Note Patient: Ceferino MOSERine Provider: Anat Fikn DPM :1955 A ge:69 Y S ex:Female Date:12/17/2024 Address:[address] [place] [address], [place] gre[place] [facility] Pcp:Jaqueline No Subjective: * Chief Complaints: * [...] 12/17/2024 Generated for Kun pelayo/Isaiah/Alok on: 1 03:02 PM EDT
--- OUTSIDE RECORDS SUMMARY | 2025-02-12 09:00 | XMS_ITS ---
Author Organization [facility] Address [address] [place] [phone] Care Team Providers Care Clinical Application Specialist Name Role Phone Rebekah (RETIRED) Radu BLAS Primary Care Provide r Good Cordero [phone] REASON FOR VISIT screening,hx polyps Encounters Encounter Location Date Provider Diagnosis [facility] [place] [address] [place] [phone] 02/12/2025 Good Berry Colon cancer scree kristen [...] JUNE IBARRA MDOB: 1955 (70 yo F)Acc No.[id number]:02/12/2025 COLON WITH MAC Patient: JUNE CALLEJAS Provider: Vince Berry MD :1955 A ge:69 Y S ex:Female Date:02/12/2025 Address:[address] [place] [address], [id number] Pcp:Radu Welch (RETIRED )MD Subjective: * Chief [...] 02/12/2025 Generated for Kun pelayo/Isaiah/Ambaritting on: 1 03:01 PM EDT
--- OUTSIDE RECORDS SUMMARY | 2025-07-29 04:30 | XMS_ITS ---
Author Organization [facility] Address [address] [place] [address] Care Team Providers Care General Ophthalmologist Name Role Phone Jaqueline No Primary Care Provider Morales FinkJayashree Unavailable [phone] Allergies Allergen (clinical drug ingredient) Drug/Non Drug Allergy documented on EMR Reaction Allergy Type Onset Date Status Penicillin Unknown Drug Allergy Active REASON FOR VISIT At Risk Footcare, Wart(s), Toe Irritation Medications Medication SIG (Take, Route, Frequency, Duration) Notes Start Date End Date Status Paxil Not-Taking Keflex 500 MG 1 capsule Orally Twice a day; Duration: 10 day(s) Not-Taking Colcrys 0.6 MG 1 tablet Orally Once a day; Duration: 5 days 06/07/2016 Not-Taking Lidoderm 5 % 1 patch to intact skin remove after 12 hours Externally Once a day Not-Taking Atenolol 25 MG 2 Orally Once a day Not-Taking Physical Therapy . . . 2-3x/week; Duration: 3-4 weeks 12/19/2015 Not-Taking LORazepam 0.5 MG 1 tablet as needed Orally every 6 hrs Not-Taking hydroCHLOROthiazide Not-Taking Doxycycline Hyclate 100 MG 1 tablet Oral ly Once a day; Duration: 10 days Not-Taking Night Splint AFO - L1930 as directed 12/19/2015 Not-Taking Extra Depth Orthopedic Shoes (1 Pair) with Customized Heat Molded Multidensity Innersoles (3 Pair) as directed Dx: NIDDM/Polyneuropathy (E11.42), Hammertoe Foot Deformity (M20.41,M20.42), Preulcerative Skin Lesion(s) (L85.1 Active Cephalexin 500 MG 1 capsule Orally twice a day; Duration: 10 days 11/21/2023 Not-Taking Brimonidine Tartrate 0.15 % 1 drop into affected eye Ophthalmic every 8 hrs Active Latanoprost 0.005 % Ophthalmic; Duration : 50 Active clonazePAM 0.5 MG Oral; Duration: 30 Active PARoxetine HCl 40 MG 1 tablet in the morning Orally Once a day; Duration: 30 day(s) Active zzzCompression Stockings 20-30mm Hg . . .; Duration: . Active buPROPion HCl ER (SR) 100 MG 1 tablet in the morning Orally Once a day; Duration: 30 day(s) Active Compression Stockings 20-30mm Hg 1 pair wear daily; Duration: 30 days Active Spironolactone 25 MG 1 tablet Orally; Duration: 30 day(s) Active Simvastatin 20 MG Orally Ac tive Lisinopril 40 MG as directed Orally Once a day Active cloNIDine HCl 0.1 MG as directed Orally Active eliquis 5 mg Active Vitamin D Active Claritin Active Eye Drops Active hydrALAZINE HCl 25 MG 1 tablet with food Orally Three times a day; Duration: 30 day(s) Active Carvedilol 12.5 MG 1 tablet with food Orally Twice a day; Duration: 30 day(s) Active Immunizations Vaccine Route Administration Date Status Comme nts Influenza Unknown 07/29/2025 Refused Social History Tobacco Use: Social History [...] Problem Acquired hammer toe of right foot ([id number]) Other hammer toe(s) (acquired) , right foot (M20.41) Active confirmed Response to treatment, Improvement Problem Acquired hammer toe of left foot ([id number] 97920) Other hammer toe(s) (acquired) , left foot (M20.42) Active confirmed Response to treatment, Improvement Vital Signs Height 5ft6in in 07/29/2025 Weight 240 lbs 07/29/2025 BMI 38.73 kg/m2 07/29/2025 Blood pressure systolic 130 mm Hg 07/29/20 25 Blood pressure diastolic 60 mm Hg 025 Procedures Procedure Date Ordered Date Performed Result Body Sit e 03589-Yywc Destruction, 1-14 07/29/2025 N/A 78179-VFAS SKIN LESIONS, 2 TO 4 07/29/2025 N/A W6581-[id number] DYSTROPHIC NAILS ANY # 07/29/2025 N/A Encounters Encounter Location Date Provider Diagnosis [facility] [address] [place] [address] 07/29/2025 Jayashree Black Other viral warts B07.8 ; Pain in left foot M79.672 ; Type 2 diabetes mellitus with diabetic polyneuropathy E11.42 ; Other hammer toe(s) (acquired), right foot M20.41 and Other hammer toe(s) (acquired), left foot M20.42 Assessments Encounter Date Diagnosis (ICD Code) Assessment Notes Treatment Notes Treatment Clinical Notes Section Notes 07/29/2025 Other viral warts (ICD-10 - B07.8) 07/29/2025 Pain in left foot (ICD-10 - M79.672) 07/29/2025 Type 2 diabetes mellitus with diabetic polyneuropathy (ICD-10 - E11.42) 07/29/2025 Other hammer toe(s) (acquired), right foot (ICD-10 - M20.41) Response to treatment, Improvement 07/29/2025 Other hammer toe(s) (acquired), left foot (ICD-10 - M20.42) Response to treatment, Improvement 07/29/2025 Other Plan Of Treatment Pending Test Test Name Order Date 62361-Jajm Destruction, 1-14 07/29/2025 65110-NSJM SKIN LESIONS, 2 TO 4 07/29/20 25 [id number] DYSTROPHIC NAILS ANY # Next Appt Details Follow Up: 3 Months, Reason: Provider Name:Jayashree Fink , 11/25/2025 09:15:00 AM, [address] [place] [address], [phone], Procedure Notes * Category Sub-Category Detail Notes Wart Treatment Procedure Verruca, as desc ribed in exam, were debrided to pin-point bleeding margins with sterile 15 surgical blade, silver nitrate chemocautery applied, recomm. immune-boosting meds such as zinc, recomm. follow up with topical chemosurgical agents, Pt CONT TO defer any other forms of tx - 40070 due to, GIVEN CLINICAL IMPROVEMENT with midfoot lesion Keratoma Treatment Parring or Cutting o f [...] instrumentation by the physician of record - 63470 Nail Reduction Nail Reduction (-27) Trimming o [...] - G0127 Progress Notes * Alivia WILDEOB:03/1955 (70 yo F)Acc No.[id number]:07/29/2025 Progress Note Patient: Josefina MOSER Provider: Anat Fink DPM :1955 A ge:70 Y S ex:Female Date:07/29/2025 Address:[address] [place] [address], [place], [id number] Pcp:Jaqueline No Subjective: * Chief Complaints: * A t Risk FootcareWart(s)Toe Irritation * HPI: A t Risk footcare: Pt States Last PCP Visit: D ate 0 12/22/2024 W art: Pt States Last PCP Visit: D ate: 0 12/22/2024 T oe pain: Treatments: R x shoes . * ROS: G eneral/Constitutional: Nausea d enies. V omiting d enies. H renae Thirst d enies. L oss appetite d enies. C hills d enies. F atigue d enies.?Fever d enies. N ight Sweats d enies. U nexplained weight loss d enies. U nexplained weight gain d enies. H EENTM: Dentures d enies. D izziness d enies. G lasses/contacts a dmits. R etinopathy d enies. B lurred/double vision d enies. T MJ?denies. D ischarge/drainage d enies. I mplants d enies. S ore throat d enies. D ental implants d enies. H willow of hearing d enies. D ifficulty chewing/swallowing/speaking d enies. N ose bleeds d enies. S ore mouth d enies. ? R espiratory: On Oxygen d enies. P neumonia/pleurisy d enies.?Bronchitis d enies. E mphysema d enies. C oughing d enies. C ough blood?denies. S hortness of breath d enies. W heezing d enies. C ardiovascular: Pacemaker d enies. M FILLER ROOM ATTENDANT d enies. W PW d enies. C HF d enies. H eart attack d enies. S eptal defect d enies. R apid beat d enies. C hest pain d enies. A trial Fib. d enies. M urmur/Palpitations d enies. G astrointestinal: Hemorrhoids d enies. S tomach/Abdominal pain d enies. D ark blood stool d enies. I rritable bowel d enies. C onstipation d enies. D iarrhea d enies. H ematology: Swelling a dmits. C lots d enies. V aricose Veins d enies. B ruising d enies. B leeding problem d enies. G enitourinary: Blood urine d enies. F requent/Painfu/urination/bladder control d enies. K idney stones d enies. I nfection (UTI) d enies. N ephropathy d enies. s ex trans dis (STD) d enies. P rostate d enies. M usculoskeletal: Hammertoes d enies. B unions d enies. B ack Pain d enies. M uscle Cramps/ Resting d enies. M uscle cramps / walking d enies.?Generalized aches and pains a dmits. W eakness d enies. I nteg.: Mahmood d enies. S cars d enies. C orns/calluses?denies. I ngrown nails a dmits. P ainful nails d enies. O pen Sores d enies. R ashes d enies. N eurologic: Difficulty sleeping d enies. B rain disorder d enies. N umbness a dmits. B alance trouble d enies. C onfusion d enies. F ainting/blackouts d enies. T ingling a dmits. T remors d enies. * Medical History: * Surgical History: h ysterectomy 10/30/arpal tunnel surgery tumor removal appendectomy Pituitary sinus surgery 06/25/22 * Hospitalization/Major Diagno stic Procedure: [facility] sinus surgery complication uncontrollable nose [place] [facility] [place] * Family History: M other: , diagnosed with Other malignant neoplasm of unspecified site. F ather: . P aternal Grand Mother: arthritis, diagnosed with Other malignant neoplasm of unspecified site, Unspecified essential hypertension, Unspecified cerebral artery occlusion with cerebral infarction. P aternal aunt: diagnosed with Other malignant neoplasm of unspecified site. P aternal uncle: diagnosed with Other malignant neoplasm of unspecified site. * Social History: T obacco Use: T obacco use other than smoking A re you an other tobacco user? N o Tobacco Control (Standard) T obacco use: N onsmoker D rugs/Alcohol: D rugs H ave you used drugs other than those for medical reasons in the past 12 months? N o Alcohol Screen D id you have a drink containing alcohol in the past year? Y es H ow often did you have a drink containing alcohol in the past year? M onthly or less (1 point) H ow often did you have 6 or more drinks on one occasion in the past year? L ess than monthly (1 point) P oints 2 I nterpretation N egative M iscellaneous: C affeine: yes, decaf tea, diet soda occassional. Children: yes, 1. Exercise: no. Marital status: . Occupation: retired- [employer]. D rug/Alcohol: A SOPHY-C (Standard) D id you have a drink containing alcohol in the past year? N o P oints 0 I nterpretation N egative * Medications: T akingClaritin Eye Drops hydrALAZINE HCl 25 MG Tablet [...] reviewed and reconciled with the patient * Allergies: P tommy[Allergies Verified] Objective: * Vitals: H t:5ft6in, Wt:240, BMI:38.73, Shoe size:10W, BP:130/60mm Hg, BS:not taken, Ht-cm: 167.64 cm, Wt-k.86 kg. * P ast Orders: L ab:HEMOGLOBIN A1C (GLYCOHEMOGLOBIN) (Order Date - 12/22/2024) (Collection Date & Time - 12/22/2024 08:17 AM) Value Reference Range HEMOGLOBIN A1C % (HH) 6.7 * Examination: O phthalmology Referral: DIABETES EYE EXAM P rocedure Performed: Michael Avalos ate of Exam Performed 0 09/30/2024 D iabetic Retinopathy Screening: Y es R etinal Screening Performed: Y es F indings of Diabetic Eye Exam: n o retinopathy G eneral Examination: GENERAL APPEARANCE: R eveals a pleasant, alert, well nourished, well-developed, well hydrated individual, who demonstrates proper attention to hygiene/body habitus, and is in no acute distress, Pt serves as own historian for office visit today. ORIENTED: p erson, place, and time. Footwear Evaluation F ootwear Evaluation performed: N eurological: SENSORY: Neurological exam demonstrates inability for patient to distinguish sharp/dull pin prick discrimination, reduced, light touch sensation, reduced, vibration sensation,reduced, proprioception identification, in a stocking fashion, B/L. Test with 5.07 [place]rence monofilament performed at plantar aspects of 5 varied sites per foot shows sensation absent in at least 2 locations, B/L, Pt relates, anesthesia, B/L,, shooting/radiating sensation, tingling, burning, hyperesthesia right groin distally to tips of right toes. ? O rthopedic: MUSCLE STRENGTH: D ecreased with DF, Right, Drop foot, Right. GAIT ABNORMALITY: a ntalgic, unstable/unsteady relating occasional difficulty with balance. FOOT MORPHOLOGY: ( -) Charcot collapse/destruction noted at [facility]. DIGITAL DEFORMITIES: D igital contracture, PIPJ, 2-5 B/L, incompl-reducible to push-up test, no over, nor underlapping, with evidence of no s kin irritation , Digital contracture, PIPJ, 2-5 B/L, incompl-reducible to push- up test, no over, nor underlapping, t here is e vidence of shoe producing skin irritation. FOOTWEAR EVALUATION: good condition, exhibit proper fit and accommodation for pedal deformities. OT were inspected and noted to be in good condition giving proper support at the present time. V ascular: DP PULSES (B): 2 /4, B/L. PT PULSES (B): 2 /4, B/L. CAPILLARY FILL TIME: i mmediate, all digits, B/L. TEMPERTURE GRADIENT (C): n ormal, warm to cool, proximal to distal, B/L, B/L. EDEMA (C): 1 /4, B/L. D ermatologic: SKIN FINDINGS: S kin exam reveals keratotic lesion(s) located at, SUB MTH (s), 5, B/L . VERRUCA: s gorge , round, raised, flat-topped, petechial bleeding papulae(s), with cauliflower appearance and interrruption of skin lines, with pain to both direct and lateral compression, and size estimated at 6mm , plantar Heel, LEFT, plantar Midfoot, ?NO FURTHER SIGN of mosaic papule(s) with skin lines now evident and visible. ? N ails: NAILS are: E longated, overgrown, dystrophic ,, TA, T1, T2, T3, T4, T5, T6, T7, T8, T9. I ngrown Nail: INSPECTION: R eveals nail incurvation, pain on palpation, groove hypertrophy, groove ischemia, Medial nail border, T6, Lateral nail border, TA. ? Assessment: * Assessment: 1. O ther viral warts - B07.8 (Primary) 2 . P ain in left foot - M79.672? 3. T ype 2 diabetes mellitus with diabetic polyneuropathy - E11.42 ?4. O ther hammer toe(s) (acquired), right foot - M20.41 S pecify :Chronic problem, Stable (1=3,2=4) N otes :Response to treatment, Improvement 5 . O ther hammer toe(s) (acquired), left foot - M20.42 S pecify :Chronic problem, Stable (1=3,2=4) N otes :Response to treatment, Improvement Plan: * Treatment: 2. T ype 2 diabetes mellitus with diabetic polyneuropathy P rocedure: Q1337-[id number] DYSTROPHIC NAILS ANY # P rocedure: 87958-XGOV SKIN LESIONS, 2 TO 4 * Procedures: K eratoma Treatment: Parring or Cutting of Benign Hyperkeratotic Lesion(s) ( -56) 2-4 Lesions - Due to the at [...] instrumentation by the physician of record - 90364. W art Treatment: Procedure V erruca, as described in exam, were debrided to pin-point bleeding margins with sterile 15 surgical blade, silver nitrate chemocautery applied, recomm. immune-boosting meds such as zinc, recomm. follow up with topical chemosurgical agents, Pt CONT TO defer any other forms of tx - 74750 due to, GIVEN CLINICAL IMPROVEMENT with midfoot lesion. ? N ail Reduction: Nail Reduction ( -27) Trimming of all dystrophic nails - Due [...] healthy nail plate or bed tissue - G0127. * Immunizations: Influenza (Not administered - Refused: Patient decision) * Procedure Codes: 1 7110 Wart Destruction, 1-14, Modifiers: XS G0127 TRIMMING DYSTROPHIC NAILS ANY #, Modifiers: XS 31476 TRIM SKIN LESIONS, 2 TO 4, Modifiers: XS M1371 Mst rec gsa<7 * Preventive Medicine: Counseling: D iscussion: - 13: Office or other outpatient visit for the [...] have encouraged the patient to call the office. S hoe Gear Counseling: A thorough inspection of the patients Rxed shoe gear and inserts was performed and findings communicated. We reviewed the many important medical advantages for adhering to regularly wearing these shoe and insert accommodative devices daily as well as reviewed the fact that a failure in accepting these recommendations may be deleterious, unable to prevent, and result in many pedal complications such as skin irritation, skin ulceration, infection, and even loss of toe/foot/leg/or even their life. Time was also spent reviewing the proper foot care techniques including daily skin moisturization, daily foot inspection for any interruption in skin integrity, open lesions, or sign of infection such as redness/malodor/drainage/swelling as well as daily shoe inspection for the presence of trapped foreign bodies in the shoe as well as insert wear. Patient questions re: shoes, inserts, and self foot inspections were answered to their satisfaction as the patient verbally confirmed a full understanding of the above information.? * Follow Up: 3 Months * Images: * Sign off status: Completed true * Provider: Anat Fink DPM Date: Generated for Kun pelayo/Isaiah/Alok on: 03:01 PM EDT History and Physical Notes * HPI (History of Present Illness) Category Sub-Category Detail Notes Category Not es Toe pain Treatments: Rx shoes Wart Pt States Last PCP Visit: Date:: 12/22/2024 At Risk footcare Pt States Last PCP Visit: Date: Examination Category Sub-Category Detail Notes Category Not es Ingrown Nail INSPECTION: Reveals nail inc urvation, pain on palpation, groove hypertrophy, groove ischemia, Medial nail border, T6, Lateral nail border, TA Neurological SENSORY: Neurological exa m demonstrates inability for patient to distinguish sharp/dull pin prick discrimination, reduced, light touch sensation, reduced, vibration sensation,reduced, proprioception identification, in a stocking fashion, B/L. Test with 5.07 [place]rence monofilament performed at plantar aspects of 5 varied sites per foot shows sensation absent in at least 2 locations, B/L, Pt relates, anesthesia, B/L,, shooting/radiating sensation, [...] and lateral compression, and size estimated at 6mm , plantar Heel, LEFT, plantar Midfoot, NO FURTHER SIGN of mosaic papule(s) with skin lines now evident and visible Orthopedic GAIT ABNORMALITY: antalgic, unst able/unsteady relating occasional difficulty with balance FOOT MORPHOLOGY: (-) Charcot collapse /destruction noted at [facility] FOOTWEAR EVALUATION: good condition, exh ibit proper fit and accommodation for pedal deformities. OT were inspected and noted to be in good condition giving proper support at the present time DIGITAL DEFORMITIES: Digital contracture , PIPJ, 2-5 B/L, incompl-reducible to push-up test, no over, nor underlapping, with evidence of no skin irritation , Digital contracture, PIPJ, 2-5 B/L, incompl-reducible to push- up test, no over, nor underlapping, there is evidence of shoe producing skin irritation MUSCLE STRENGTH: Decreased with DF, R ight, Drop foot, Right General Examination GENERAL APPEARANCE: Reveals a pleasant, alert, well nourished, well-developed, well hydrated individual, who demonstrates proper attention to hygiene/body habitus, and is in no acute distress, Pt serves as own historian for office visit today ORIENTED: person, place, and t claudio Footwear Evaluation Footwear Evaluation performe d:: Ophthalmology Referral DIABETES EYE EXAM Procedure Perform ed:: Yes Date of Exam Performed: 09/30/2024 Diabetic Retinopathy Screening:: Yes Retinal Screening Performed:: Yes Findings of Diabetic Eye Exam:: no [...]
--- NOTE | 2025-07-30 14:33 | A.OFFPC_ITS ---
Vital Signs 07/30/25 14:37 Height 5 ft 6 in BP 128/75 Blood Pressure Location Rt brachial Position Sitting Respiration 14 Pulse 70 Pulse Source Pulse Oximeter Temp 98.3 F Temp Source Oral Pulse Oximetry (%) 97 Oxygen Delivery Method Room Air Intake Visit Reasons: A1C was high 7.3 Intake Note: Follow up Supervising Editor News Reel Required: No Allergies nifedipine (NIFEDIPINE) Allergy (Unknown, Verified 07/30/25 14:34) UNKNOWN- DOES NOT REMEMBER Tobacco use date assessed: 07/30/25 Dental Screening Dental Screen Date: 12/18/24 HPI HPI Comments History of Present Illness Details Patient is a pleasant 69 years old female with history of anxiety and depression, panic disorder, DM, low back pain, Afib (on Eliquis), h/o COVID in 2021 with chest pain leading to cardiac catheterization, CELIA on CPAP, OA, right foot drop presenting for follow up Diabetes: A1C had been less than 7.0% for quite a while. Recent A1C elevated to 7.3% 05/28/25 Recently developed right foot drop. Following with neurology. She was having right hip pain, low back pain, pelvic pain right leg pain. She received right hip injection for moderate OA. Follows ortho, saw Dr Riggins. MRI lumbar spine with significant DDD. Per patient Dr Riggins does not think MRI explains the foot drop. She is starting to have increased pain now in the left leg, especially knee. She reports history of pituitary gland surgery 27 years CV: On carvedilol, aldactone, lisinopril, simvastatin, hydralazine, eliquis. Denies chest pain, shortness of breath BH: stable. ENT: History of sinus congestion, bitemporal headaches. Remote history of sinus surgery with ENT in ong. She has a boil on the right abdomen which is red and painful. Denies fevers. Reports frequent occurence Colonoscopy 02/12/25-Dr Berry-5 year recall. Mammo 09/2023 [facility]. ROS see HPI PHYSICAL EXAM: GENERAL: Alert and oriented x 3. NAD EYES: EOMI. Anicteric. HENT: Moist mucous membranes. No scleral icterus. No cervical lymphadenopathy. LUNGS: Clear to auscultation bilaterally. CARDIOVASCULAR: Regular rate and rhythm. No murmur. No JVD. ABDOMEN:Soft +ns EXTREMITIES: No edema. Non-tender. SKIN: Abscess right abdomen. No drainage. NEUROLOGIC: Right AFO. CN II-XII grossly intact PSYCHIATRIC: Cooperative. 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 Low back pain, unspecified Pain in left shoulder Intercostal pain Major depressive disorder, recurrent, unspecified Unilateral primary osteoarthritis, left knee CELIA on CPAP Diastolic dysfunction Panic disorder Generalized anxiety disorder Dysthymia PAF (paroxysmal atrial fibrillation) New onset atrial fibrillation Prediabetes HTN (hypertension) Surgical History History of carpal tunnel release History of pituitary surgery H/O colonoscopy History of nasal surgery S/P cardiac cath History of hysterectomy Family History Mother Bladder cancer Social History Housing: House Are you a primary care center manager to a significant other at home: No Do you presently have visiting nurse or other home services: No Alcohol intake: never Patient Tobacco Use Status: Former Tobacco user Tobacco use type: Cigarette e-Cigarette/Vaping Use: Never Used Advance Directives Date on File: 07/03/22 service: No Current occupational status: retired Cognitive needs: Yes (cane) Hearing needs: Yes (b/l hearing aids) Vision needs: Yes (rx glasses) Questionnaire PHQ-9 Over the last 2 weeks, how often have you been bothered by any of the following problems? 1. Little interest or pleasure in doing things: several days 2. Feeling down, depressed, or hopeless: several days 3. Trouble falling or staying asleep, or sleeping too much: not at all 4. Feeling tired or having little energy: several days 5. Poor appetite or overeating: not at all 6. Feeling bad about yourself - or that you are a failure or have let yourself or your family down: not at all 7. Trouble concentrating on things, such as reading the newspaper or watching television: not at all [address] - PHQ-9 Billing: Patient declined-do not bill Source: Developed by Drs. Good Brennan, Mimi Sher, Bay head nd colleagues, with an educational ann marie from [employer]. Thrive Questionnaire Date Thrive assessed: 12/18/24 AUDIT C Alcohol Use Questionnaire (AUDIT-C) 1. How often do you have a drink containing alcohol?: Monthly or less (1-2 year) 2. How many drinks containing alcohol do you have on a typical day when you are drinking?: 1 or 2 3. How often do you have six or more drinks on one occasion?: Never Total Score: 1 JUSTIN-7 AMB Questionnaire JUSTIN-7 Date JUSTIN - 7 assessed: 12/18/24 Source: Developed by Drs. Good Brennan, Mimi Sher, Bay Zepeda and colleagues, with an educational ann marie from [employer]. Physical exam (Primary Care) Vital Signs: Last Vital Signs Temp 98.3 F 07/30/25 14:37 Pulse 70 07/30/25 14:37 Resp 14 07/30/25 14:37 BP 128/75 07/30/25 14:37 Pulse Ox 97 07/30/25 14:37 Oxygen Delivery Method Room Air 07/30/25 14:37 Tobacco/Smoking Status: Tobacco use Status Tobacco use date assessed 12/18/24 07/30/25 14:38 Patient Tobacco Use Status Former Tobacco user 07/30/25 14:38 Tobacco use type Cigarette 07/30/25 14:38 e-Cigarette/Vaping Use Never Used 07/30/25 14:38 Thrive Assessment: Date of Thrive Assessment Date Thrive assessed 12/18/24 07/30/25 14:38 Coding Level of Care Code Est Pt Level 4 (10257) Complex EM visit Add On G2211 Diagnoses Type 2 diabetes mellitus without complication, without long-term current use of insulin E11.9 Diabetes mellitus assistant terminal manager insulin use: without assisted use Atherosclerotic cardiovascular disease I25.10 CELIA (obstructive sleep apnea) G47.33 Right foot drop M21.371 Assessment & Plan Assessment & Plan (1) Type 2 diabetes mellitus without complications: Code(s): E11.9 - Type 2 diabetes mellitus without complications Category: Medical Qualifiers: Diabetes mellitus assisted insulin use: without assisted use Qualified Code(s): E11.9 - Type 2 diabetes mellitus without complications (2) Atherosclerotic cardiovascular disease: Code(s): I25.10 - Atherosclerotic heart disease of [place] coronary artery without angina pectoris Category: Medical (3) CELIA (obstructive sleep apnea): Code(s): G47.33 - Obstructive sleep apnea (adult) (pediatric) Category: Medical (4) Right foot drop: Code(s): M21.371 - Foot drop, right foot Category: Medical Plan Discussed diabetes, increased A1C. She will start mounjaro. If this is not covered will send [facility] Referral to diabetic education. Instructed how to check glucose today Depression is stable on medication Boil-start doxycycline, warm compresses. Call if persistent Follow up in six weeks or sooner as needed Orders: Referrals Diabetes Education Referral E11.9 - Type 2 diabetes mellitus without complications Medications: New doxycycline hyclate 100 mg PO BID 14 tabs 0RF Mounjaro (tirzepatide) for 4 weeks 2.5 mg (0.5 mL) subcut QWEEK 6 mL 3RF NS ondansetron HCl 4 mg PO Q8H PRN 30 tabs 3RF nausea and vomiting
[2025-07-30 14:37] VITALS: BP 128/75; PULSE 70; RESP 14; TEMP 36.8; O2SAT 97
--- OUTSIDE RECORDS SUMMARY | 2025-07-30 15:02 | XMS_ITS | Patient Health Record ---
Author Organization [facility] Address [address] [place] [address] Care Team Providers Care Vacuum Tester Cans Name Role Phone Jaqueline No Primary Care Provider Jayashree Coleman Unavailable [phone] Allergies Allergen (clinical drug ingredient) Drug/Non Drug [...] affected eye Ophthalmic every 8 hrs Active Physical Therapy . . . 2-3x/week; Duration: 3-4 weeks 12/19/2015 Not-Taking Claritin Active LORazepam 0.5 MG 1 tablet as needed Orally every 6 hrs Not-Taking Eye Drops Active hydroCHLOROthiazide Not-Taking hydrALAZINE HCl 25 MG 1 tablet with food Orally Three times a day; Duration: 30 day(s) Active Paxil Not-Taking Extra Depth Orthopedic Shoes (1 Pair) with Customized Heat Molded Multidensity Innersoles (3 Pair) as directed Dx: NIDDM/Polyneuropathy (E11.42), Hammertoe Foot Deformity (M20.41,M20.42), Preulcerative Skin Lesion(s) (L85.1 Active Cephalexin 500 MG 1 capsule Orally twice a day; Duration: 10 days 11/21/2023 Not-Taking Doxycycline Hyclate 100 MG 1 tablet Oral ly Once a day; Duration: 10 days Not-Taking Night Splint AFO - L1930 as directed 12/19/2015 Not-Taking Carvedilol 12.5 MG 1 tablet with food Orally Twice a day; Duration: 30 day(s) Active Atenolol 25 MG 2 Orally Once a day Not-Taking eliquis 5 mg Active Vitamin D Active Colcrys 0.6 MG 1 tablet Orally Once a day; Duration: 5 days 06/07/2016 Not-Taking Lidoderm 5 % 1 patch to intact skin remove after 12 hours Externally Once a day Not-Taking PARoxetine HCl 40 MG 1 tablet in the morning Orally Once a day; Duration: 30 day(s) Active zzzCompression Stockings 20-30mm Hg . . .; Duration: . Active buPROPion HCl ER (SR) 100 MG 1 tablet in the morning Orally Once a day; Duration: 30 day(s) Active Compression Stockings 20-30mm Hg 1 pair wear daily; Duration: 30 days Active Simvastatin 20 MG Orally Ac tive Keflex 500 MG 1 capsule Orally Twice a day; Duration: 10 day(s) Not-Taking Lisinopril 40 MG as directed Orally Once a day Active cloNIDine HCl 0.1 MG as directed Orally Active Spironolactone 25 MG 1 tablet Orally; Duration: 30 day(s) Active Latanoprost 0.005 % Ophthalmic; Duration : 50 Active clonazePAM 0.5 MG Oral; Duration: 30 Active Immunizations Vaccine Route Administration Date Status Comme nts Influenza Unknown 04/18/2020 Refused Influenza Unknown 12/05/2023 Refused Influenza Unknown 07/29/2025 Refused Social History Tobacco [...] Problem Acquired hammer toe of right foot (926145776487136 5) Other hammer toe(s) (acquired), right foot (M20.41) Active confirmed Response to treatment, Improvement Problem Acquired hammer toe of left foot (821494696559539 3) Other hammer toe(s) (acquired), left foot (M20.42) Active confirmed Response to treatment, Improvement Problem Polyneuropathy due to type 2 diabetes mellitus (806647935) Type 2 diabetes mellitus with diabetic polyneuropathy (E11.42) Active confirmed Vital Signs Blood pressure diastolic 60 mm Hg 07/29/2025 Height 5ft6in in 07/29/2025 Blood pressure systolic 130 mm Hg 07/29/2025 Weight 240 lbs 07/29/2025 BMI 38.73 kg/m2 07/29/2025 Procedures Procedure Date Ordered Date Performed Result Body Sit e 72169-Yquf Destruction, 1-14 09/14/2024 N/A 04036-LWKD SKIN LESIONS, 2 TO 4 09/14/2024 N/A S0398-QPAWAAUO DYSTROPHIC NAILS ANY # 09/14/2024 N/A 45390-Zjtj Destruction, 1-14 01/18/2025 N/A 14723-OTEC SKIN LESIONS, 2 TO 4 01/18/2025 N/A O1066-KVDOXTYJ DYSTROPHIC NAILS ANY # 01/18/2025 N/A 00224-Vkrx Destruction, 1-14 04/26/2025 N/A 63695-Brqdrfme Plate 04/26/2025 N/A 67922-Kqqjtkhe Plate Each Additional 04/26/2025 N/A 09890-IISB SKIN LESIONS, 2 TO 4 04/26/2025 N/A B5279-VOVHYFDJ DYSTROPHIC NAILS ANY # 04/26/2025 N/A 69039-Dnlt Destruction, 1-14 07/29/2025 N/A 87755-NLBR SKIN LESIONS, 2 TO 4 07/29/2025 N/A L3648-DAFZSZKB DYSTROPHIC NAILS ANY # 07/29/2025 N/A Encounters Encounter Location Date Provider Diagnosis [facility] [address] [place] [address] 09/14/2024 Jayashree Fink Other viral warts B07.8 ; Right foot drop M21.371 ; Pain in left foot M79.672 ; Type 2 diabetes mellitus with diabetic polyneuropathy E11.42 ; Injury of right peroneal nerve, initial encounter S84.11XA and Neuritis M79.[address] [address] 01/18/2025 Jayashree Fink Other viral warts B07.8 ; Right foot drop M21.371 ; Pain in left foot M79.672 ; Type 2 diabetes mellitus with diabetic polyneuropathy E11.42 and Neuritis M79.[address] [address] 04/26/2025 Jayashree Fink Other viral warts B07.8 ; Pain in left foot M79.672 ; Type 2 diabetes mellitus with diabetic polyneuropathy E11.42 and Ingrown nail L60.[address] [address] 07/29/2025 Jayashree Fink Other viral warts B07.8 ; Pain in left foot M79.672 ; Type 2 diabetes mellitus with diabetic polyneuropathy E11.42 ; Other hammer toe(s) (acquired), right foot M20.41 and Other hammer toe(s) (acquired), left foot M20.[address] [address] 09/14/2024 Jayashreelei Fink [address] [address] 11/18/2024 Jayashreelei Fink [address] [address] 12/11/2024 Jayashree Aleks Assessments Encounter Date Diagnosis (ICD Code) Assessment Notes Treatment Notes Treatment Clinical Notes Section Notes 09/14/2024 Other viral warts (ICD-10 - B07.8) 09/14/2024 Right foot drop (ICD-10 - M21.371) 01/18/2025 Other viral warts (ICD-10 - B07.8) 01/18/2025 Right foot drop (ICD-10 - M21.371) 04/26/2025 Other viral warts (ICD-10 - B07.8) 04/26/2025 Pain in left foot (ICD-10 - M79.672) 07/29/2025 Other viral warts (ICD-10 - B07.8) 07/29/2025 Pain in left foot (ICD-10 - M79.672) 07/29/2025 Type 2 diabetes mellitus with diabetic polyneuropathy (ICD-10 - E11.42) 04/26/2025 Type 2 diabetes mellitus with diabetic polyneuropathy (ICD-10 - E11.42) 01/18/2025 Pain in left foot (ICD-10 - M79.672) 09/14/2024 Pain in left foot (ICD-10 - M79.672) 09/14/2024 Type 2 diabetes mellitus with diabetic polyneuropathy (ICD-10 - E11.42) 01/18/2025 Type 2 diabetes mellitus with diabetic polyneuropathy (ICD-10 - E11.42) 04/26/2025 Ingrown nail (ICD-10 - L60.0) 07/29/2025 Other hammer toe(s) (acquired), right foot (ICD-10 - M20.41) Response to treatment, Improvement 01/18/2025 Neuritis (ICD-10 - M79.2) 09/14/2024 Injury of right peroneal nerve, initial encounter (ICD-10 - S84.11XA) 09/14/2024 Neuritis (ICD-10 - M79.2) 07/29/2025 Other hammer toe(s) (acquired), left foot (ICD-10 - M20.42) Response to treatment, Improvement 09/14/2024 Other 04/26/2025 Other Patient Educated with: DIABETIC FOOT CARE INSTRUCTIONS. pdf (DIABETIC FOOT CARE INSTRUCTIONS. pdf) 07/29/2025 Other Plan Of Treatment Pending Test Test Name Order Date 22481-Aiif Destruction, -07/20/2019 82620-Tkqy Destruction, -01/18/2020 72751-Mffn Destruction, -04/18/2020 70344-Hnst Destruction, -07/07/2020 49624-Oegq Destruction, -10/13/2020 87510-Owfw Destruction, -14 01/12/2021 46794-Zhms Destruction, 1-14 05/15/2021 16047-Wsft Destruction, 1-14 08/31/2021 40808-Rfva Destruction, 1-14 11/28/2021 14262-Mrbv Destruction, 1-14 03/29/2022 20664-Rpkd Destruction, 1-14 07/02/2022 25189-Gnrz Destruction, 1-14 10/11/2022 98125-Aiys Destruction, -14 04/25/2023 49459-Vxoh Destruction, 1-14 08/05/2023 72282-Ypew Destruction, -14 01/17/2023 09005-Vqpn Destruction, -14 12/23/2023 83188-Pvwz Destruction, -14 03/16/2024 58951-Pptz Destruction, 1-14 06/22/2024 29067-Qhtb Destruction, -14 09/14/2024 55458-Mlfi Destruction, -14 01/18/2025 36572-Usra Destruction, -14 04/26/2025 03147-Mzuo Destruction, -14 07/29/2025 46648-Pwnagkmk Plate 04/26/2025 03216-Hzqohvev Plate 03/16/2024 59366-Orzkrdgy Plate 08/05/2023 45233-Cjedpmzr Plate 01/17/2023 33173-Seoenkgh Plate 03/29/2022 09543-Xingfenj Plate 11/28/2021 57626-Wionixqm Plate 08/31/2021 38141-Tryzgvlh Plate 05/15/2021 20078-Vdjxjitu Plate 01/12/2021 57274-Iujvovsb Plate 04/18/2020 88467-Hggwqjoi Plate Each Additional 73103-Jmxqabgm Plate Each Additional 60373-MGV 11/21/2023 04266- Debride <25 sq cm 12/23/2023 26905-VMKHGYZ SKIN/TISSUE 12/05/2023 53391-JYCN SKIN LESIONS, 2 TO 4 12/05/19 07171-FALE SKIN LESIONS, 2 TO 4 08/05/20 76685-VTTE SKIN LESIONS, 2 TO 4 01/18/20 41958-GZHA SKIN LESIONS, 2 TO 4 10/11/19 00008-ZUJO SKIN LESIONS, 2 TO 4 07/02/20 63838-VYXC SKIN LESIONS, 2 TO 4 12/23/19 59740-QJVE SKIN LESIONS, 2 TO 4 04/25/20 28954-RUNS SKIN LESIONS, 2 TO 4 03/16/20 23072-TNBA SKIN LESIONS, 2 TO 4 04/26/20 86744-WLWE SKIN LESIONS, 2 TO 4 01/19/20 71880-HXFF SKIN LESIONS, 2 TO 4 09/14/20 38894-QLYT SKIN LESIONS, 2 TO 4 06/22/20 83171-HSKE SKIN LESIONS, 2 TO 4 04/18/20 06721-XDVR SKIN LESIONS, 2 TO 4 01/18/20 35254-ANHJ SKIN LESIONS, 2 TO 4 07/20/20 53805-BFTK SKIN LESIONS, 2 TO 4 07/07/20 35077-XADP SKIN LESIONS, 2 TO 4 10/13/19 61531-LBFM SKIN LESIONS, 2 TO 4 01/13/20 40444-YVQW SKIN LESIONS, 2 TO 4 05/15/20 21393-LTED SKIN LESIONS, 2 TO 4 08/31/20 07188-FAIP SKIN LESIONS, 2 TO 4 11/29/19 27640-HMIW SKIN LESIONS, 2 TO 4 03/29/20 04029-KJZI SKIN LESIONS, 2 TO 4 07/29/20 H9126-GCAZGVCQ DYSTROPHIC NAILS ANY # P2881-FGYSTLRV DYSTROPHIC NAILS ANY # C4750-RSUBPAUG DYSTROPHIC NAILS ANY # L3585-FWJYKBWZ DYSTROPHIC NAILS ANY # X2108-EXETZGEM DYSTROPHIC NAILS ANY # Y1333-BUOSNZYH DYSTROPHIC NAILS ANY # X8574-MAQRJSAB DYSTROPHIC NAILS ANY # W7924-FTAVYGPZ DYSTROPHIC NAILS ANY # C9448-BJSYGCVH DYSTROPHIC NAILS ANY # U6917-YHZDQUIZ DYSTROPHIC NAILS ANY # G7628-JOKXXKHA DYSTROPHIC NAILS ANY # J9788-DUQVXUWV DYSTROPHIC NAILS ANY # V8224-YRDAMLBX DYSTROPHIC NAILS ANY # J8164-QNHHTXEY DYSTROPHIC NAILS ANY # M9241-ITNSZDKT DYSTROPHIC NAILS ANY # A9142-KXIRQWPY DYSTROPHIC NAILS ANY # G2877-JDARMRJF DYSTROPHIC NAILS ANY # F5812-VCSATTYU DYSTROPHIC NAILS ANY # V2377-SUUPJZFV DYSTROPHIC NAILS ANY # W8305-TDATKBNQ DYSTROPHIC NAILS ANY # E4512-WDTKGTPJ DYSTROPHIC NAILS ANY # H2049-APEBDSLO DYSTROPHIC NAILS ANY # S5810-RLROEKWF DYSTROPHIC NAILS ANY # Next Appt Details Provider Name:Jayashree Fink , 11/25/2025 09:15:00 AM, [address] [place], [address], Insurance Providers Payer Name Payer Address Payer Phone Subscriber Number Group Number Insured Name Patient Relationship to Insured Coverage Start Date Coverage End Date Medicare [employer] [address] [place] [address] [id number] Josefina Wilde Self - patient is the insured [facility] [address] [place] [address] [id number] Josefina Wilde Self - patient is the insured [employer] [address] [place] [address] [phone] [id number] MAINE WILDE Spouse - patient is the [...] surgery 06/25/22 Hospitalization History Reason Date(Month/Year) ER [facility] Foot [place] 08/23 [facility]- 3 days sinus surgery complication uncontrollable nose bleed 2021 [facility]- covid 09/2021
--- OUTSIDE RECORDS SUMMARY | 2025-07-30 15:02 | XMS_ITS | Patient Health Record ---
Author Organization [facility] Address [address] [place] [address] Care Team Providers Care Potato Loader Name Role Phone Rebekah (RETIRED) Radu BLAS Primary Care Provide r Unavailable Good Berry Unavailable [phone] Allergies Allergen (clinical drug ingredient) Drug/Non Drug Allergy documented on EMR Reaction Allergy Type Onset Date Status nifedipine NIFEdipine Unknown Drug Allergy Activ e Results Component Value Reference Range Notes Glucose, Whole Blood Reviewed date:02/13/2025 06:25:53 PM Interpretation: Performing Lab:[facility], [address] [place] [phone] Notes/Report: Glucose, Whole Blood 127 60-115 mg/dL METER # : [id number] Pathology (Not yet reviewed by provider) Interpretation: Performing Lab:[facility], [address] [place] [id number] Notes/Report: Reason For Referral No Information Medications [...] Problem Screening for malignant neoplasm of colon (205712933) Encounter for screening for malignant neoplasm of colon (Z12.11) Active confirmed Problem History of adenomatous polyp of colon (183603188) History of adenomatous polyp of colon (Z86.010) Active confirmed Problem Flatulence, eructation and gas pain (662770079) Bloating (R14.0) Active confirmed Problem Constipation (05641592) Constipation (K59.00) Active confirmed Problem Flatulence (548920872) Flatulence (R14.3) Active confirmed Problem Long-term current use of anticoagulant (167603262) Anticoagulant long-term use (Z79.01) Active confirmed Problem Pre-procedure evaluation check (519458328) Pre-procedural examination (Z01.818) Active confirmed Vital Signs Blood pressure diastolic 00 mm Hg 10/27/2024 Height 66 in 10/27/2024 Blood pressure systolic 00 mm Hg 10/27/2024 Weight 233 lbs 10/27/2024 BMI 37.60 kg/m2 10/27/2024 Encounters Encounter Location Date Provider Diagnosis [facility] Out[facility] [address], [place] [id number] 02/12/2025 Good Berry Colon cancer screeni ng Z12.11 ; Adenomatous colon polyp D12.6 ; Diverticulosis of large intestine without perforation or abscess without bleeding K57.30 and Other hemorrhoids K64.8 [facility] [address] [place] [address] 10/27/2024 Good Berry History of adenomato us polyp of colon Z86.010 ; Constipation K59.00 ; Encounter for screening for malignant neoplasm of colon Z12.11 ; Pre-procedural examination Z01.818 and Anticoagulant long-term use Z79.01 [facility] [address] [place] [address] 10/27/2024 Good Berry [facility] [address] [place] [address] 06/18/2025 Good Berry Assessments Encounter Date Diagnosis [...] [place] [address] [place] [address] [id number] ANGEL JOSEFINA WALLER Self - patient is the insured [facility] [address] [place], [place] [phone] [id number] ANGEL JOSEFINA WALLER Self - patient is the insured [employer] [address] [place] [address] [phone] [id number] ANGEL SRIDHARJOSEFINA Self - patient is the insured Medical (General) History Medical History History ICD Code Colonoscopy 03-17-2007 and in 11/2012 with the removal of a tubular adenoma Denies NH,CVA,Lung disease,renal disease HTN Hyperlipidemia GERD--normal upper endoscopy in 11/2012 IBS---normal duodenal and gastric biopsi es--no H.pylori--EGD in 11/2012 Anxiety/Depression Uterine fibroid Sleep apnea-uses a CPAP machine Glaucoma Diet-controlled diabetes Drop foot 07/2024 Afib-Dr. Morel Negative colonoscopy in 09/2018 Depression Surgical History Surgery Date(Month/Year) Carpal tunnel on the right D&C Pituitary gland surgery Tomas ESCOTO
--- OUTSIDE RECORDS SUMMARY | 2025-07-30 15:02 | XMS_ITS | Clinical Summary ---
Author Organization [facility] Address [address] [place] [address] Phone Care Team Providers Care Vehicle Care Specialist Name Role Phone Radu Welch MD Primary Care Provider [phone] Allergies No known active allergies Medications lisinopril [...] also be consided for placement of a night clerk auditor. They can see their dentist or an [...] average glucose, using the formula of the H6R-Tsmgysu Average Glucose study (ADAG), Diabetes Care, Vol.31,#8, [...] Most Recently Relevant to Health Maintenance Insurance [facility] Medicare [employer] Medicare [facility] [employer] Care Teams Vehicle Care Specialist Relationship Specialty Start Date End Date Radu Welch MD [id number] [place] [facility] - General 10/10/20
--- OUTSIDE RECORDS SUMMARY | 2025-07-30 15:02 | XMS_ITS | Patient Health Record ---
Author Organization [email or web address] [facility] Address [address] [place] [address] Care Team Providers Care Territory Sales Consultant Name Role Phone TONY GARCES M.D. Primary Care Provider Unavaila Felicia Pool Unavailable [phone] Reason For Referral No Information Medications Medication SIG (Take, Route, Fr equency, Duration) Notes Start Date End Date Status Simvastatin 20MG 1 ORAL daily; Duration: -3 [facility] 2011 Active Spironolactone 25MG 1 ORAL daily; Duration: -3 [facility] 05/2013 Active Terazol 7 0.4 % 1 application at bed time Vaginal Once a day; Duration: 7 day(s) 05/10/2015 Active LORazepam 0.5 MG 1 tablet as needed O rally Twice a day Active Atenolol 50MG 1 ORAL DAILY; Duration: -3 [facility] 2 Active cloNIDine HCl 0.1MG 1 ORAL twice daily; Duration: -3 [facility] 09/09/2012 Active Lisinopril 40MG 1 ORAL daily; Duration: -3 [facility] 012 Active PARoxetine HCl 40MG 1 ORAL daily; Duration: -3 [facility] 07/2012 Active Problems Problem Type SNOMED Code ICD Code Onset Dates Problem Status W/U Status Risk Notes Problem Hyperlipidemia (51439197) Other and unspecified hyperlipidemia (272.4) Active confirmed Major Problem Depressive disorder (47932352) Depressive disorder, not elsewhere classified (311) Active confirmed Major Problem Glaucoma (18497142) Unspecified glaucoma (365.9) Active confirmed Diag Problem Benign essential hypertension (8762629) Essential hypertension, benign (401.1) Active confirmed Major Problem Female genital organ symptoms (057517387) Other specified symptom associated with female genital organs (625.8) Active confirmed Major Problem Postmenopausal bleeding (76485600) Postmenopausal bleeding (627.1) Active confirmed Diag Problem Menopausal symptom (72766373) Symptomatic menopausal or female climacteric states (627.2) Active confirmed Major Problem Left lower quadrant pain (023751212) Abdominal pain, left lower quadrant (789.04) Active confirmed Diag Problem Gynecological examination normal (806854175792591) Routine gynecological examination (V72.31) Active confirmed Problem Screening for malignant neoplasm of colon (995465475) Special screening for malignant neoplasms, colon (V76.51) Active confirmed Major Plan Of Treatment Pending Test Test Name Order Date Bone Density 10/19/2016 Urine Culture and Sensitivity 05/10/2015 Insurance Providers Payer Name Payer Address Payer Phone Subscriber Number Group Number Insured Name Patient Relationship to Insured Coverage Start Date Coverage End Date [employer] [address] [place] [address] [phone] [id number] JUNE ESTEVES Self - patient is the insured [facility] CARE LINK [address] [place], [place] [id number] [phone] [id number] JUNE ESTEVES Self - patient is the [...] TONSILLECTOMY APPENDECTOMY PITUITARY GLAND, [facility] Hospitalization History Reason Date(Month/Year) CHILD SEE SURGICAL HX
== END 2025-07-30 15:30 | disposition home or self-care (01) ==
LOC: HO.HMCFM 14:24
PROVIDERS: PCP Internal Medicine; Visit Provider Internal Medicine
DX: E11.9 Type 2 diabetes mellitus without complications (principal); I25.10 Atherosclerotic heart disease of native coronary artery without angina pectoris; G47.33 Obstructive sleep apnea (adult) (pediatric); M21.371 Foot drop, right foot

== ENCOUNTER → 2025-07-30 14:23 | Outpatient (BNVA) | payer MEDICARE, BC, OTHER, SELFPAY | PROVIDERS: PCP Internal Medicine; Visit Provider Internal Medicine | DX: E11.9 Type 2 diabetes mellitus without complications (principal); I25.10 Atherosclerotic heart disease of native coronary artery without angina pectoris; M21.371 Foot drop, right foot; G47.33 Obstructive sleep apnea (adult) (pediatric); I48.91 Unspecified atrial fibrillation; L02.229 Furuncle of trunk, unspecified; F32.A Depression, unspecified; Z79.01 Long term (current) use of anticoagulants; Z79.899 Other long term (current) drug therapy; Z99.89 Dependence on other enabling machines and devices | CPT/HCPCS: 99212 ==

== ENCOUNTER 2025-08-16 09:35 | Outpatient (AMB) | payer MEDICARE, BC, OTHER, SELFPAY ==
--- NOTE | 2025-08-16 09:43 | MHC.OFFVIS ---
Intake Visit Reasons: Left Knee Durolane Injection Intake Note: Rafaela is a 70 year old female who presents today for a Left Knee Durolane Injection. Allergies nifedipine (NIFEDIPINE) Allergy (Unknown, Verified 07/30/25 14:34) UNKNOWN- DOES NOT REMEMBER HPI HPI Left Knee Durolane Injection: Details: Rafaela is a 70 year old female who presents today for a Left Knee Durolane Injection. 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 Low back pain, unspecified Pain in left shoulder Intercostal pain Major depressive disorder, recurrent, unspecified Unilateral primary osteoarthritis, left knee CELIA on CPAP Diastolic dysfunction Panic disorder Generalized anxiety disorder Dysthymia PAF (paroxysmal atrial fibrillation) New onset atrial fibrillation Prediabetes HTN (hypertension) Surgical History History of carpal tunnel release History of pituitary surgery H/O colonoscopy History of nasal surgery S/P cardiac cath History of hysterectomy Family History Mother Bladder cancer Social History Housing: House Are you a primary neurocritical care physician to a significant other at home: No Do you presently have visiting nurse or other home services: No Alcohol intake: never Patient Tobacco Use Status: Former Tobacco user Tobacco use type: Cigarette e-Cigarette/Vaping Use: Never Used Advance Directives Date on File: 07/03/22 service: No Current occupational status: retired Cognitive needs: Yes (cane) Hearing needs: Yes (b/l hearing aids) Vision needs: Yes (rx glasses) Physical Exam Exam Exam: skin clean dry and intact left knee Office Procedures Joint Inj/Aspir; Non-Pain Clin Joint Injection/Drain Details: Injected Durolane. Site was prepped using aseptic technique. Patient tolerated the procedure well. Shoulders, Hips, Knees, Knee Large Joint Injection 17061: Left Knee Coding Procedure code (CPT) selection complete Assessment & Plan Assessment & Plan (1) Arthritis of left knee: Code(s): M17.12 - Unilateral primary osteoarthritis, left knee Category: Medical Plan: 70-year-old woman with left knee osteoarthritis. I injected her left knee with Durolane today. She may follow up as needed Coding Level of Care Code Est Pt Level 2 (64399) Diagnoses Arthritis of left knee M17.12 CPT Codes Shoulders, Hips, Knees, - Knee Large Joint Injection : Left Knee ([id number])
== END 2025-08-16 10:20 | disposition home or self-care (01) ==
LOC: HO.HOS 09:36
PROVIDERS: PCP Internal Medicine; Visit Provider Orthopaedic Surgery
DX: M17.12 Unilateral primary osteoarthritis, left knee (principal)
CPT/HCPCS: 20610

== ENCOUNTER → 2025-08-16 09:35 | Outpatient (BNVA) | payer MEDICARE, BC, OTHER, SELFPAY | PROVIDERS: PCP Internal Medicine; Visit Provider Orthopaedic Surgery | DX: M17.12 Unilateral primary osteoarthritis, left knee (principal) | CPT/HCPCS: 20610; 99212; J7318 ==

== ENCOUNTER 2025-09-02 09:04 | Outpatient (AMB) | payer MEDICARE, BC, OTHER, SELFPAY ==
--- OUTSIDE RECORDS SUMMARY | 2024-10-12 04:00 | XMS_ITS ---
Author Organization [facility] Address [address] [place] [address] Care Team Providers Care Ball Point Splitter Name Role Phone Jaqueline No Primary Care Provider Jayashree Coleman [phone] REASON FOR VISIT Seen Sooner Encounters Encounter Location Date Provider Diagnosis [address] [address] 10/12/2024 Jayashree Fink Plan Of Treatment Next Appt Details Provider Name:Jayashree Fink , 11/25/2025 09:15:00 AM, [address] [place], [address], Progress Notes * Alivia WILDEOB:03/1955 (70 yo F)Acc No.[id number]:10/12/2024 Progress Note Patient: Ceferino MOSERine Provider: Anat Fink DPM :1955 A ge:69 Y S ex:Female Date:10/12/2024 Address:[address] [place] [address], [place] [address] [facility] Pcp:Jaqueline No Subjective: * Chief Complaints: * 1 . Seen Sooner. * Medical History: Objective: * Vitals: Assessment: Plan: * Treatment: * Images: * The named appointment provid er may or may not be the originator of this progress note, and it is not deemed complete until electronically signed by the appointment provider. Sign off status: Pending * Provider: Anat Fink DPM Date: 0 10/12/2024 Generated for Kun pelayo/Isaiah/Alok on: 1 11/03/2024 09:51 AM EST
--- OUTSIDE RECORDS SUMMARY | 2024-12-17 04:15 | XMS_ITS ---
Author Organization [facility] Address [address] [place] [address] Care Team Providers Care Paper Bag Press Operator Name Role Phone Jaqueline No Primary Care Provider Jayashree Coleman [phone] Encounters Encounter Location Date Provider Diagnosis [address] [address] 12/17/2024 Jayashree Fink Plan Of Treatment Next Appt Details Provider Name:Jayashree Fink , 11/25/2025 09:15:00 AM, [address] [place], [address], Progress Notes * Alivia WILDEOB:03/1955 (70 yo F)Acc No.[id number]:12/17/2024 Progress Note Patient: Ceferino MOSERine Provider: Anat Fink DPM :1955 A ge:69 Y S ex:Female Date:12/17/2024 Address:[address] [place] [address], [place] [facility] Pcp:Jaqueline No Subjective: * Chief Complaints: * * Medical History: Objective: * Vitals: Assessment: Plan: * Treatment: * Images: * The named appointment provid er may or may not be the originator of this progress note, and it is not deemed complete until electronically signed by the appointment provider. Sign off status: Pending * Provider: Aant Fink DPM Date: 0 12/17/2024 Generated for Kun pelayo/Isaiah/Alok on: 1 11/03/2024 09:52 AM EST
--- OUTSIDE RECORDS SUMMARY | 2025-02-12 08:00 | XMS_ITS ---
Author Organization [facility] Address [address] [place] [phone] Care Team Providers Care Apartment Rental Agent Name Role Phone Rebekah (RETIRED) Radu BLAS Primary Care Provide r Good Cordero [phone] REASON FOR VISIT screening,hx polyps Encounters Encounter Location Date Provider Diagnosis [facility] [place] Out[place] [address] [place] [id number] 02/12/2025 Good Berry Colon cancer scree kristen Z12.11 ; Adenomatous colon polyp D12.6 ; Diverticulosis of large intestine without perforation or abscess without bleeding K57.30 and Other hemorrhoids K64.8 Assessments Encounter Date Diagnosis (ICD Code) Assessment Notes Treatment Notes Treatment Clinical Notes Section Notes 02/12/2025 Colon cancer screening (ICD-10 - Z12.11) 02/12/2025 Adenomatous colon polyp (ICD-10 - D12.6) 02/12/2025 Diverticulosis of large intestine without perforation or abscess without bleeding (ICD-10 - K57.30) 02/12/2025 Other hemorrhoids (ICD-10 - K64.8) Plan Of Treatment No Information Progress Notes * JUNE IBARRA MDOB: 1955 (70 yo F)Acc No.[id number]:02/12/2025 COLON WITH MAC Patient: JUNE CALLEJAS Provider: Vince Berry MD :1955 A ge:69 Y S ex:Female Date:02/12/2025 Address:[address] [place] [address], [id number] Pcp:Radu Welch (RETIRED )MD Subjective: * Chief Complaints: * S creening,hx polyps Assessment: * Assessment: 1. C olon cancer screening - Z12.11 (Primary) 2 . A denomatous colon polyp - D12.6 3 . D iverticulosis of large intestine without perforation or abscess without bleeding - K57.30 4 . O ther hemorrhoids - K64.8 Plan: * Procedure Codes: 4 5385 LESION REMOVAL COLONOSCOPY, Modifiers: PT 0529F INTRVL 3+YRS PTS CLNSCP [id number] RCMND FLW-UP 10 YRS DOCD, Modifiers: 1P Billing Information: * Procedure Codes: 24530 LESION REMOVAL COLONOSCOPY. Modifiers: PT 0529F INTRVL 3+YRS PTS CLNSCP DOCD. 0528F RCMND FLW-UP 10 YRS DOCD. Modifiers: 1P * The named appointment provid er may or may not be the originator of this progress note, and it is not deemed complete until electronically signed by the appointment provider. Sign off status: Pending * Provider: Vince Berry MD Date: 0 02/12/2025 Generated for Kun pelayo/Isaiah/Silvestresmitting on: 1 11/03/2024 09:51 AM EST
--- OUTSIDE RECORDS SUMMARY | 2025-09-02 09:51 | XMS_ITS | Clinical Summary ---
Author Organization [facility] Address [address] [place] [address] Phone Care Team Providers Care Rehabilitation Medicine Physician Name Role Phone Radu Welch MD Primary Care Provider [phone] Allergies No known active allergies Medications lisinopril [...] also be consided for placement of a beach lifeguard. They can see their dentist or an [...] average glucose, using the formula of the S2I-Tmydbyb Average Glucose study (ADAG), Diabetes Care, Vol.31,#8, [...] to Health Maintenance Insurance [facility] Medicare [facility] Medicare [facility] Care Teams Rehabilitation Medicine Physician Relationship Specialty Start Date End Date Radu Welch MD [address] [place] [facility] - General 10/10/20
--- OUTSIDE RECORDS SUMMARY | 2025-09-02 09:52 | XMS_ITS | Patient Health Record ---
Author Organization [employer] [facility] Address [address] [place] [address] Care Team Providers Care Incident Response Analyst Name Role Phone TONY GARCES M.D. Primary Care Provider Unavaila Felicia oPol Unavailable [phone] Reason For Referral No Information Medications Medication SIG (Take, Route, Fr equency, Duration) Notes Start Date End Date Status Simvastatin 20MG 1 ORAL daily; Duration: -3 [facility] 2011 Active Spironolactone 25MG 1 ORAL daily; Duration: -3 [facility] 05/2013 Active Terazol 7 0.4 % 1 application at bed time Vaginal Once a day; Duration: 7 day(s) 05/10/2015 Active LORazepam 0.5 MG 1 tablet as needed O rally Twice a day Active Atenolol 50MG 1 ORAL DAILY; Duration: -3 [facility] 2 Active cloNIDine HCl 0.1MG 1 ORAL twice daily; Duration: -3 [facility] 09/09/2012 Active Lisinopril 40MG 1 ORAL daily; Duration: -3 [facility] 012 Active PARoxetine HCl 40MG 1 ORAL daily; Duration: -3 [facility] 07/2012 Active Problems Problem Type SNOMED Code ICD Code Onset Dates Problem Status W/U Status Risk Notes Problem Hyperlipidemia (37127719) Other and unspecified hyperlipidemia (272.4) Active confirmed Major Problem Depressive disorder (83224050) Depressive disorder, not elsewhere classified (311) Active confirmed Major Problem Glaucoma (31568760) Unspecified glaucoma (365.9) Active confirmed Diag Problem Benign essential hypertension (8909687) Essential hypertension, benign (401.1) Active confirmed Major Problem Female genital organ symptoms (501914765) Other specified symptom associated with female genital organs (625.8) Active confirmed Major Problem Postmenopausal bleeding (06052756) Postmenopausal bleeding (627.1) Active confirmed Diag Problem Menopausal symptom (76313279) Symptomatic menopausal or female climacteric states (627.2) Active confirmed Major Problem Left lower quadrant pain (037476224) Abdominal pain, left lower quadrant (789.04) Active confirmed Diag Problem Gynecological examination normal (316584026514499) Routine gynecological examination (V72.31) Active confirmed Problem Screening for malignant neoplasm of colon (611248047) Special screening for malignant neoplasms, colon (V76.51) Active confirmed Major Plan Of Treatment Pending Test Test Name Order Date Bone Density 10/19/2016 Urine Culture and Sensitivity 05/10/2015 Insurance Providers Payer Name Payer Address Payer Phone Subscriber Number Group Number Insured Name Patient Relationship to Insured Coverage Start Date Coverage End Date [employer] [address] [place] [address] [phone] [id number] JUNE ESTEVES Self - patient is the insured [facility] C[facility] L[facility] [address] [place], [place] [id number] [phone] [id number] JUNE ESTEVES Self - patient is the [...] APPENDECTOMY PITUITARY GLAND, [facility] Hospitalization History Reason Date(Month/Year) CHILD SEE SURGICAL HX
--- OUTSIDE RECORDS SUMMARY | 2025-09-02 09:52 | XMS_ITS | Patient Health Record ---
Author Organization [facility] Address [address] [place] [address] Care Team Providers Care Glue Machine Operator Name Role Phone Jaqueline No Primary Care Provider Jayashree Coleman Unavailable [phone] Allergies Allergen (clinical drug ingredient) Drug/Non Drug [...] Problem Acquired hammer toe of right foot (334249438299830 5) Other hammer toe(s) (acquired), right foot (M20.41) Active confirmed Response to treatment, Improvement Problem Acquired hammer toe of left foot (729607497382683 3) Other hammer toe(s) (acquired), left foot (M20.42) Active confirmed Response to treatment, Improvement Problem Polyneuropathy due to type 2 diabetes mellitus (439398407) Type 2 diabetes mellitus with diabetic polyneuropathy (E11.42) Active confirmed Vital Signs Blood pressure diastolic 60 mm Hg 07/29/2025 Height 5ft6in in 07/29/2025 Blood pressure systolic 130 mm Hg 07/29/2025 Weight 240 lbs 07/29/2025 BMI 38.73 kg/m2 07/29/2025 Procedures Procedure Date Ordered Date Performed Result Body Sit e 41811-Kuqm Destruction, 1-14 09/14/2024 N/A 93382-EWIV SKIN LESIONS, 2 TO 4 09/14/2024 N/A E8854-DWYKVOER DYSTROPHIC NAILS ANY # 09/14/2024 N/A 88470-Bcin Destruction, 1-14 01/18/2025 N/A 94143-RWLD SKIN LESIONS, 2 TO 4 01/18/2025 N/A L7187-TKJPPJCO DYSTROPHIC NAILS ANY # 01/18/2025 N/A 34199-Lxjm Destruction, 1-14 04/26/2025 N/A 71576-Lolrkgqg Plate 04/26/2025 N/A 50728-Xjpdwywn Plate Each Additional 04/26/2025 N/A 31085-MTJR SKIN LESIONS, 2 TO 4 04/26/2025 N/A N6139-TXACEPHR DYSTROPHIC NAILS ANY # 04/26/2025 N/A 12046-Kzzl Destruction, 1-14 07/29/2025 N/A 32130-FHRY SKIN LESIONS, 2 TO 4 07/29/2025 N/A K4634-MCFYWVZI DYSTROPHIC NAILS ANY # 07/29/2025 N/A Encounters Encounter Location Date Provider Diagnosis [facility] [place] [address] [place] [address] 09/14/2024 Jayashree Fink Other viral warts B07.8 ; Right foot drop M21.371 ; Pain in left foot M79.672 ; Type 2 diabetes mellitus with diabetic polyneuropathy E11.42 ; Injury of right peroneal nerve, initial encounter S84.11XA and Neuritis M79.[address] [address] 01/18/2025 Jayashree Fink Other viral warts B07.8 ; Right foot drop M21.371 ; Pain in left foot M79.672 ; Type 2 diabetes mellitus with diabetic polyneuropathy E11.42 and Neuritis M79.[address] [address] 04/26/2025 Jayashree Fink Other viral warts B07.8 ; Pain in left foot M79.672 ; Type 2 diabetes mellitus with diabetic polyneuropathy E11.42 and Ingrown nail L60.[address] [address] 07/29/2025 Jayashree Fink Other viral warts B07.8 ; Pain in left foot M79.672 ; Type 2 diabetes mellitus with diabetic polyneuropathy E11.42 ; Other hammer toe(s) (acquired), right foot M20.41 and Other hammer toe(s) (acquired), left foot M20.[address] [address] 09/14/2024 Jayashreelei Fink [address] [address] 11/18/2024 Jayashreelei Fink [address] [address] 12/11/2024 Jayashree Aleks Assessments Encounter Date Diagnosis [...] Treatment Pending Test Test Name Order Date 10906-Ehbi Destruction, -07/20/2019 45672-Dwqv Destruction, -01/18/2020 22095-Gadc Destruction, -04/18/2020 90332-Joep Destruction, -07/07/2020 26167-Vpff Destruction, -10/13/2020 07555-Ecal Destruction, -14 01/12/2021 33356-Hcrc Destruction, 1-14 05/15/2021 70876-Hojz Destruction, 1-14 08/31/2021 35326-Irkz Destruction, 1-14 11/28/2021 84389-Xbru Destruction, 1-14 03/29/2022 93650-Ofsl Destruction, 1-14 07/02/2022 96841-Denb Destruction, 1-14 10/11/2022 69124-Shou Destruction, -14 04/25/2023 25487-Nsnk Destruction, 1-14 08/05/2023 00892-Ljvn Destruction, -14 01/17/2023 76393-Idny Destruction, -14 12/23/2023 37963-Wefd Destruction, -14 03/16/2024 71776-Woao Destruction, 1-14 06/22/2024 41297-Wvdd Destruction, -14 09/14/2024 26998-Oyih Destruction, -14 01/18/2025 65081-Cdqq Destruction, -14 04/26/2025 15993-Mppu Destruction, -14 07/29/2025 01081-Ukqbrqxn Plate 04/26/2025 36770-Jumqeike Plate 03/16/2024 88722-Iqncexhh Plate 08/05/2023 94419-Qjgschsc Plate 01/17/2023 52829-Zptqhpzw Plate 03/29/2022 89650-Sljveqrl Plate 11/28/2021 90884-Qdiswhqw Plate 08/31/2021 85691-Lqyyvnku Plate 05/15/2021 77846-Pynyodqj Plate 01/12/2021 56487-Lletbiwt Plate 04/18/2020 53297-Szowqkiw Plate Each Additional 89026-Skfsljzy Plate Each Additional 97500-IPV 11/21/2023 02382- Debride <25 sq cm 12/23/2023 96462-QCSQEMJ SKIN/TISSUE 12/05/2023 56025-JSTT SKIN LESIONS, 2 TO 4 12/05/19 62525-KAYB SKIN LESIONS, 2 TO 4 08/05/20 71835-SKDY SKIN LESIONS, 2 TO 4 01/18/20 12359-SEPT SKIN LESIONS, 2 TO 4 10/11/19 23462-ESNO SKIN LESIONS, 2 TO 4 07/02/20 43483-XADV SKIN LESIONS, 2 TO 4 12/23/19 34988-HJXK SKIN LESIONS, 2 TO 4 04/25/20 85539-ZTLN SKIN LESIONS, 2 TO 4 03/16/20 69478-WHTF SKIN LESIONS, 2 TO 4 04/26/20 33769-ZAAC SKIN LESIONS, 2 TO 4 01/19/20 42885-QJVB SKIN LESIONS, 2 TO 4 09/14/20 07407-ZRQQ SKIN LESIONS, 2 TO 4 06/22/20 31041-TVDP SKIN LESIONS, 2 TO 4 04/18/20 72531-OHGL SKIN LESIONS, 2 TO 4 01/18/20 19469-NJWP SKIN LESIONS, 2 TO 4 07/20/20 88123-RSVG SKIN LESIONS, 2 TO 4 07/07/20 12909-MKEB SKIN LESIONS, 2 TO 4 10/13/19 86289-VBSR SKIN LESIONS, 2 TO 4 01/13/20 77883-EEBG SKIN LESIONS, 2 TO 4 05/15/20 83072-IOVM SKIN LESIONS, 2 TO 4 08/31/20 91654-MYLK SKIN LESIONS, 2 TO 4 11/29/19 45664-HLEG SKIN LESIONS, 2 TO 4 03/29/20 07450-TPKI SKIN LESIONS, 2 TO 4 07/29/20 R1906-VDCCVFKX DYSTROPHIC NAILS ANY # F0351-HOHDWURV DYSTROPHIC NAILS ANY # K1499-PXFNCWJF DYSTROPHIC NAILS ANY # O1593-HKAAMEJQ DYSTROPHIC NAILS ANY # C4265-THVHKMYL DYSTROPHIC NAILS ANY # G2404-BROSKBMW DYSTROPHIC NAILS ANY # W8668-DXQNVZWJ DYSTROPHIC NAILS ANY # C5923-QHBWCLVL DYSTROPHIC NAILS ANY # G3776-SZISAPYX DYSTROPHIC NAILS ANY # D7089-CXTPVNNX DYSTROPHIC NAILS ANY # N1886-DCJCRNSG DYSTROPHIC NAILS ANY # D4673-VZXPCYCJ DYSTROPHIC NAILS ANY # C6397-JBVKYBCB DYSTROPHIC NAILS ANY # K2557-KYPWKQUB DYSTROPHIC NAILS ANY # F8129-VRKBZCEL DYSTROPHIC NAILS ANY # O1461-JKPDFGSG DYSTROPHIC NAILS ANY # I1843-VAOBKDCP DYSTROPHIC NAILS ANY # Z8712-ZELOKUOC DYSTROPHIC NAILS ANY # B3100-ILTZOUOW DYSTROPHIC NAILS ANY # E5272-IPAIKKYV DYSTROPHIC NAILS ANY # T9955-MVKCKWLY DYSTROPHIC NAILS ANY # W9837-UCKUYUVQ DYSTROPHIC NAILS ANY # P6345-LDQIZWVJ DYSTROPHIC NAILS ANY # Next Appt Details Provider Name:Jayashree Fink , 11/25/2025 09:15:00 AM, [address] [place], [address], Insurance Providers Payer Name Payer Address Payer Phone Subscriber Number Group Number Insured Name Patient Relationship to Insured Coverage Start Date Coverage End Date [employer] [address] [place] [address] [id number] Josefina iWlde Self - patient is the insured [facility] [address] [place] [address] [id number] Josefina Wilde Self - patient is the insured [facility] [address] [place] [address] [phone] [id number] MAINE WILDE Spouse - patient is the [...] surgery 06/25/22 Hospitalization History Reason Date(Month/Year) ER [facility]- Foot pain 08/23 [facility]- 3 days sinus surgery complication uncontrollable nose bleed 2021 [facility]- covid 09/2021
--- NOTE | 2025-09-02 10:16 | MHC.AMDMED ---
Intake Intake Visit Reasons: Type 2 diabetes mellitus without complications Allergies nifedipine (NIFEDIPINE) Allergy (Unknown, Verified 07/30/25 14:34) UNKNOWN- DOES NOT REMEMBER HPI Comprehensive Diabetes Asmnt Most Recent Diabetes Results: Hemoglobin A1c 6.8 % 03/22/20 Microalb/Creat Ratio, (<30) 25.4 ug/mg cr 12/10/23 Cholesterol 169 mg/dL 09/14/22 HDL Cholesterol 39 mg/dL 09/14/22 Triglycerides 130 mg/dL 09/14/22 Creatinine, (0.5-1.4) 0.64 mg/dL 05/28/25 BUN, (9-16) 17 mg/dL H 05/28/25 Sodium, (135-145) 144 mmol/L 05/28/25 Potassium, (3.3-5.1) 4.0 mmol/L 05/28/25 Chloride, (96-108) 107 mmol/L 05/28/25 Carbon Dioxide, (22-29) 29 mmol/L 05/28/25 Calcium, (8.4-10.2) 9.5 mg/dL Δ 12/18/24 AST, (5-31) 16 U/L 12/18/24 ALT, (0-31) 14 U/L 12/18/24 Total Protein, (6.5-8.0) 7.4 g/dL 12/18/24 Albumin, (3.5-5.0) 4.1 g/dL 12/18/24 [facility] Medical History Type 2 diabetes mellitus without complications Diverticulosis of large intestine without perforation or abscess without bleeding 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 Low back pain, unspecified Pain in left shoulder Intercostal pain Major depressive disorder, recurrent, unspecified Unilateral primary osteoarthritis, left knee CELIA on CPAP Diastolic dysfunction Panic disorder Generalized anxiety disorder Dysthymia PAF (paroxysmal atrial fibrillation) New onset atrial fibrillation Prediabetes HTN (hypertension) Surgical History History of carpal tunnel release History of pituitary surgery H/O colonoscopy History of nasal surgery S/P cardiac cath History of hysterectomy Family History Mother Bladder cancer Social History Housing: House Are you a primary wound care nurse to a significant other at home: No Do you presently have visiting nurse or other home services: No Alcohol intake: never Patient Tobacco Use Status: Former Tobacco user Tobacco use type: Cigarette e-Cigarette/Vaping Use: Never Used Advance Directives Date on File: 07/03/22 service: No Current occupational status: retired Cognitive needs: Yes (cane) Hearing needs: Yes (b/l hearing aids) Vision needs: Yes (rx glasses) Assessment & Plan Assessment & Plan (1) Type 2 diabetes mellitus without complications: Code(s): E11.9 - Type 2 diabetes mellitus without complications Plan: Diabetes self-management education and support participation record Assessment/scale: 1= needs instructed? 2= needs review? 3= comprehend keep point? 4= demonstrates understanding/ competent? NC= Not Covered Topics Learning Objective: Initial visit Initial or post srvc Initial or post srvc Initial or post srvc Initial or post srvc Initial or post srvc Post srvc Comments Pre Edu-assessment/plan Outcome or reassess Outcome or reassess Outcome or reassess Outcome or reassess Outcome or reassess Outcome or reassess Diabetes pathophysiology 1 Healthy eating 1 Being active 1 Taking medication 1 Monitoring glucose 1 Acute complication 1 Chronic complicated 1 Lifestyle and healthy coping 1 Diabetes distress in support 1 ?Diabetes pathophysiology: ?Defined diabetes med identify own type of diabetes; list 3 options for treating diabetes Healthy eating: ?Described effect of type, amount and ?timing of food on blood glucose; list 3 methods for planning meal Being active: ?State effect of exercise on blood glucose level Taking medication: ?State effect of diabetes medications on diabetes; name diabetes medications taking, action and side effects Monitoring glucose: ?Identify recommended blood glucose targets and personal target Acute complication: ?List symptoms and treatment of hyper and hypoglycemia, DKA, sick day guidelines and guidelines for severe weather or situations of crisis and diabetes supply manage Chronic complication: ?To find the relationship of blood glucose levels to long-term complications of diabetes in screening and preventative measures Lifestyle and healthy coping: ?Described lifestyle and healthy coping strategies to rule out diabetes self-management Diabetes to stress and support: ?Recognize Diabetes to stress and be able to identified support options Learning objectives: The patient was provided with verbal and written education on the following topics as outlined below. The patient met all learning objectives and was able to verbalize understanding and provide teach back of education topics discussed . The patient was provided with the opportunity to ask questions and all questions were answered. 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 At today's visit called patient's pharmacy confirm that patient will be able to mushroom picker all of her prescriptions on 09/03/2025 Patient questions/concerns Insulin/Incretin?Mimetic Patient will start Mounjaro 2.5 mg weekly Patient Education: Patient was instructed and provided with demonstration of the following: Insulin action and Incretin Mimetics medication storage how to set up medication pen/or syringe and vial Handwashing insulin injection site rotation Site rotation recognizing hypertrophy Testing blood glucose Removing and disposing needle from insulin pen Safe disposal of sharps Target blood sugar Signs/ symptoms/treatment of hypoglycemia/hyperglycemia expiration of open insulin pen Patient verbalized understanding of education provided and was able to demonstrate proper use of inject into injection pillow Reviewed rule of 15s to treat glucose under 70 mg/dL All questions were answered and patient was advised to contact the office with any questions or concerns. What is Diabetes? Pathophysiology How the body produces and uses insulin Identify type of DM Risk factors Signs of Diabetes Brief overview of Diabetes Management Monitoring blood sugar Following a meal plan Regular exercise Maintaining a healthy weight Taking medication as needed Members of the care team (PCP, RN, MA, RD, CDE, policy advisor) Blood glucose monitoring When/how often to test Target blood sugar ranges Patient currently not testing glucose Introduction to Nutrition Importance of healthy diet in managing DM Diet is personalized to individual preference Review patient?s regular diet/food preferences Who prepares meals/does food shopping/ Dining out?/ Barriers? How diet effects glucose Eating 3 balanced meals a day with small, healthy snacks between meals Review food groups Carbohydrates: What is a carbohydrate/Which food/food groups are considered carbohydrates Effect of carbohydrates on blood glucose Portion sizes Reading food labels Basic carb counting (if applicable per nursing assessment) Plate method Meal planning Recommendations: Follow plate method, consistent carbs and read nutritional labels. Smart Goal: Identify foods and current meal plan that contain carbohydrates Educational Materials: The patient was provided with the following written educational materials: Planning Healthy Meals Handout Patient Response to instructions: Comprehension of Instructions: Fair Readiness to make changes: Contemplation How confident they feel about making changes: Positive Portions of this note were created using voice recognition software, please excuse any words or phrases that may have been misinterpreted. Patient Instructions: Include regular daily activity. ADA recommends 30 minutes of exercise 5 days a week. Weight loss talk to PCP or Twisting Operator before starting new plan. Test blood sugar as directed; Fasting and 2hpp largest meal. Watch trends in results. Utilize results and to assess how food, physical activity and medications affect blood sugar results. Bring glucometer or CGM to next visit. Be knowledgeable about diabetes medication, its action, side effects, efficacy, toxicity, prescribed dosage, appropriate timing and frequency of administration, effect of missed and delayed doses and instructions for storage, travel and safety. Problem solving techniques to monitor hypo/hyperglycemia episodes and treatments. Reduce risk reduction behaviors, smoking cessation, regular eye, foot and dental examinations. Coding Level of Care Code Est Pt Level 1 (71617) Diagnoses Type 2 diabetes mellitus without complications E11.9
== END 2025-09-02 10:25 | disposition home or self-care (01) ==
LOC: HO.ENCR 09:05
PROVIDERS: PCP Internal Medicine; Visit Provider Registered Nurse Diabetes Educator
DX: E11.9 Type 2 diabetes mellitus without complications (principal)

== ENCOUNTER → 2025-09-02 09:04 | Outpatient (BNVA) | payer MEDICARE, BC, OTHER, SELFPAY | PROVIDERS: PCP Internal Medicine; Visit Provider Registered Nurse Diabetes Educator | DX: E11.9 Type 2 diabetes mellitus without complications (principal) | CPT/HCPCS: 99211 ==